=== PATIENT | female | born 1965 | race Caucasian/White ===

== ENCOUNTER 2016-02-16 08:18 | Emergency (ER) | payer MEDICAID ==
[~2016-02-16] VITALS: Ht 165.1 cm; Wt 77.1 kg
[~2016-02-16 08:18] MED LIST: ARIP15TA4 PO; ARIP15TA9 PO; AZIT250T PO; BUDE10.2 IH; DICL500C PO; DIVA500T PO; DIVA500T7 PO; HYDR-3454 PO; LORA1TAB PO; NAPR500T PO; OMEP20CA6 PO; ONDA8TAB6 PO; OXYC-190 PO; OXYC-197 PO; PRD20T PO; RT-ALBUINH IH; TR025C15 TP
--- NOTE | 2016-02-16 11:17 | ED General ---
General Chief Complaint: General Problems/Pain Stated Complaint: ANXIETY, NEEDING PORT FLUSHED Nursing Triage Note: Pt here for port flush reporting port has not been used in 3 months. Pt states she typically receives care at [facility] but has been unable to find a ride to [place]. Pt reports hearing story in car on way to hospital that made her anxious and now reports feeling very anxious and reports she needs an Rx for her abilify that she has not had for 1.5 wks. Pt reports she is currently staying at [facility]. Nursing Sepsis Screen: No Definite Risk Source of Information: Patient Exam Limitations: No Limitations History of Present Illness Time Seen by Provider: 11:17 Initial Comments 50 yo female patient presents to the emergency department for complaints of needing her port flushed and a refill on her Abilify. Patient states she has not had a port flush in 3 months. Patient typically receives care from [facility], but unable to find right [place]. Patient is living at the [facility]. Patient states she does have a prescription in [employer] [place] for 2.5 weeks of Abilify, but states this $28 and cannot afford this medication. Patient does see [facility] but has not contacted them for assistance with medication. Timing/Duration: Other (port has not been flushed for 3 mo. Has not had abilify for 1.5 wks.) Modifying Factors: worse with Other (denies modifying factors) Allergies and Home Medications Allergies Coded Allergies: No Known Drug Allergies (Unverified , 09/27/14) Home Medications Aripiprazole 15 Mg Tablet 15 MG PO HS (Reported) Divalproex Sodium 500 Mg Tablet.dr 2,000 MG PO HS (Reported) TAKE 4 (500MG) TABS Constitutional: no symptoms reported Respiratory: no symptoms reported Cardiovascular: no symptoms reported Gastrointestinal: no symptoms reported Musculoskeletal: no symptoms reported Skin: no symptoms reported Psychiatric/Neurological: See HPI All Other Systems Reviewed Negative Unless Noted: Yes (Negative excepted noted.) Past Bvankyi-Yuswor-Wcgkgz Hx Patient Social History Alcohol Use: Denies Use Recreational Drug Use: Yes (marijuana for appetite) Smoking Status: Current Everyday Smoker Type Used: Cigarettes Recent Foreign Travel: No Contact w/Someone Who Travel: No Recent Infectious Disease Expo: No Recent Hopitalizations: No Physical Abuse Screen: No Sexual Abuse: No Immunizations Up To Date Tetanus Booster (TDap): Unknown Surgeries HX Surgeries: Yes (CANCER REMOVED OFF ARM, PORT, LACERATION ON UTERUS REPAIRED) Surgeries: Section, Gallbladder Respiratory Hx Respiratory Disorders: No Respiratory Disorders: COPD Cardiovascular Hx Cardiac Disorders: Yes Cardiac Disorders: High Cholesterol, Hypertension Neurological Hx Neurological Disorders: No 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 System Hx 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: No (THROUGH MENOPAUSE) Sexually Transmitted Disease: No HIV/AIDS: No Female 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 Genitourinary Hx Genitourinary Disorders: No Gastrointestinal Hx Gastrointestinal Disorders: Yes Gastrointestinal Disorders: Gastroesophageal Reflux Musculoskeletal Hx Musculoskeletal Disorders: Yes Musculoskeletal Disorders: Rheumatoid Arthritis, Chronic Back Pain Endocrine Hx Endocrine Disorders: No HEENT HX ENT Disorders: Yes (READING GLASSES) Loss of Vision: Denies Hearing Impairment: Denies Cancer Hx Cancer: Yes Cancer: Skin, Breast Psychosocial Hx Psychiatric Problems: Yes Behavioral Health Disorders: Anxiety, Bipolar, Personality Disorder, Depression Integumentary HX Skin/Integumentary Disorder: No Blood Transfusions Hx Blood Disorders: No Adverse Reaction to a Blood Tr: No (HAS HAD BLOOD WITH NO PROBLEM) Reviewed Nursing Assessment Reviewed/Agree w Nursing PMH: Yes Family Medical History Significant Family History: No Pertinent Family Hx Physical Exam Vital Signs Vital Sign - Last 12Hours 02/16/16 08:32 Temp 96.9 Pulse 91 Resp 18 B/P 150/81 Pulse Ox 97 O2 Delivery Room Air Capillary Refill : Less Than 3 Seconds General Appearance: No Apparent Distress WD/WN Respiratory: Lungs Clear Normal Breath Sounds No Respiratory Distress Cardiovascular: Regular Rate, Rhythm No Murmur Back: Normal Inspection Extremity: Normal Capillary Refill Neurologic/Psychiatric: Alert Oriented x3 Normal Mood/Affect Skin: Normal Color Warm/Dry Other (internal groshong noted on the left chest.) Progress/Results/Core Measures Results/Orders My Orders Vital Signs/I&O Blood Pressure Mean: 104 Departure Communication Progress Notes 1135 patient case discussed with Katlin Beard. States she will contact the patient when her prescription is ready for pickup. Patient seen and evaluated. Patient advised to follow-up with [facility] for assistance with medications and to be helpful contact her when her prescription is ready for pick. Impression Impression: Primary Impression: Anxiety Additional Impression: Port catheter in place Disposition: 01 HOME, SELF-CARE Condition: Improved Departure-Patient Inst. Decision time for Depature: 11:38 Referrals: ALBA MOYA DO (PCP) Primary Care Physician DARÍO BURROWS APRN (Family) Primary Care Physician Patient Instructions: Anxiety, Adult (DC) Add. Discharge Instructions: All discharge instructions reviewed with patient and/or family. Voiced understanding. [facility] medications are ready for pickup and for discussion of payment plan. Follow-up with [facility] for future prescription refills. Return to the emergency department for worsened symptoms or any other concerns. EDIL [place] Feb 16, 2016 11:17 Decision time for Depature: 11:38 Referrals: ALBA MOYA DO (PCP) Primary Care Physician DARÍO BURROWS APRN (Family) Primary Care Physician Patient Instructions: Anxiety, Adult (DC) Add. Discharge Instructions: All discharge instructions reviewed with patient and/or family. Voiced understanding. [facility] from [facility] medications are ready for pickup and for discussion of payment plan. Follow-up with [facility] for future prescription refills. Return to the emergency department for worsened symptoms or any other concerns. EDIL [place] Feb 16, 2016 11:17
[2016-02-16] MEDS ORDERED: ARIP15TA4 PO (11:44)
[2016-02-16 12:12] VITALS: BP 126/84
== END 2016-02-16 12:11 | disposition home or self-care (01) ==
LOC: EDUNIT# 08:18 → ER 08:21
DX: F41.9 Anxiety disorder, unspecified (principal); Z95.9 Presence of cardiac and vascular implant and graft, unspecified; I10 Essential (primary) hypertension; F17.210 Nicotine dependence, cigarettes, uncomplicated
CPT/HCPCS: 82962; 99285

== ENCOUNTER → 2016-03-01 | Outpatient (CLI) | payer MEDICAID ==
[~2016-03-01] MED LIST changes: +CEFD300C3 PO; +DIVA500T15 PO; +HYDR-757 PO; +HYDR453. TOP; +HYOS0.1283 SL; +ONDA8TAB13 PO; +PRED10TA22 PO; +PROC10TA PO; +TRAM50TA2 PO
[2016-03-01 10:31] LABS: BASOPHILS % (AUTO) 1 % (0-10); EOSINOPHILS # (AUTO) 0.1 10^3/uL (0.0-0.3); EOSINOPHILS % (AUTO) 1 % (0-10); LYMPHOCYTES % (AUTO) 24 % (12-44); MEAN CORPUSCULAR HEMOGLOBIN 29 PG (25-34); MEAN CORPUSCULAR HGB CONC 32 G/DL (32-36); MEAN CORPUSCULAR VOLUME 89 FL (80-99); MEAN PLATELET VOLUME 9.9 FL (7.4-10.4); MONOCYTES # (AUTO) 0.6 X 10^3 (0.0-1.0); MONOCYTES % (AUTO) 7 % (0-12); NEUTROPHILS # (AUTO) 5.6 X 10^3 (1.8-7.8); NEUTROPHILS % (AUTO) 67 % (42-75); PLATELET COUNT 238 10^3/uL (130-400); RED BLOOD COUNT 4.73 10^6/uL (4.35-5.85); RED CELL DISTRIBUTION WIDTH 15.4 % (10.0-14.5); WHITE BLOOD COUNT 8.4 10^3/uL (4.3-11.0)
[2016-03-01 11:01] LABS: ALANINE AMINOTRANSFERASE 15 U/L (0-55); ANION GAP 6 MMOL/L (5-14); ASPARTATE AMINO TRANSFERASE 16 U/L (5-34); BILIRUBIN,TOTAL 0.2 MG/DL (0.1-1.0); BLOOD UREA NITROGEN 18 MG/DL (7-18); BUN/CREATININE RATIO 23; CALCIUM 9.1 MG/DL (8.5-10.1); CARBON DIOXIDE 27 MMOL/L (21-32); CHLORIDE 104 MMOL/L (98-107); CHOLESTEROL 208 MG/DL (< 200); CREATININE SERUM 0.77 MG/DL (0.60-1.30); DIRECT LDL 142 MG/DL (1-129); GFR ESTIMATED > 60; GLUCOSE 87 MG/DL (70-105); POTASSIUM 4.7 MMOL/L (3.6-5.0); SODIUM 137 MMOL/L (135-145); TOTAL PROTEIN 7.1 G/DL (6.4-8.2); TRIGLYCERIDES 134 MG/DL (<150); VLDL CHOLESTEROL 27 MG/DL (5-40)
[2016-03-01 11:20] LABS: THYROID STIMULATING HORMONE 2.44 UIU/ML (0.35-4.94); VALPROIC ACID 17.9 UG/ML (50.0-100.0)
== END ==
LOC: LAB 10:03
PROVIDERS: ATTEND Nurse Practitioner Psychiatric/Mental Health
DX: Z51.81 Encounter for therapeutic drug level monitoring (principal); Z79.899 Other long term (current) drug therapy
CPT/HCPCS: 36415; 80053; 80061; 80164; 84443; 85025

== ENCOUNTER 2016-03-04 10:35 | Emergency (ER) | payer MEDICAID ==
[~2016-03-04] VITALS: Ht 165.1 cm; Wt 82.1 kg
[~2016-03-04 10:35] MED LIST changes: -CEFD300C3 PO; -DIVA500T15 PO; -HYDR-757 PO; -HYDR453. TOP; -HYOS0.1283 SL; -ONDA8TAB13 PO; -PRED10TA22 PO; -PROC10TA PO; -TRAM50TA2 PO
[2016-03-04] MEDS ORDERED: HYDR-757 PO (11:11)
--- NOTE | 2016-03-04 11:12 | ED General ---
General Chief Complaint: General Problems/Pain Stated Complaint: PAIN/SWELLING RIGHT BREAST AREA Source of Information: Patient Exam Limitations: No Limitations History of Present Illness Time Seen by Provider: 11:09 Initial Comments To ER with pain and swelling to the right breast. This is been intermittent for the past 2 weeks. She had chemotherapy for right breast cancer 7 days ago. She follows with Dr. Patel at [facility] in [place]. 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 She has had a mastectomy. Timing/Duration: Intermittent Severity: Moderate Allergies and Home Medications Allergies Coded Allergies: No Known Drug Allergies (Unverified , 09/27/14) Home Medications Aripiprazole 15 Mg Tablet 15 MG PO HS (Reported) Divalproex Sodium 500 Mg Tablet.dr 2,000 MG PO HS (Reported) TAKE 4 (500MG) TABS Constitutional: see HPI EENTM: see HPI Respiratory: no symptoms reported Cardiovascular: no symptoms reported Genitourinary: no symptoms reported Musculoskeletal: no symptoms reported Skin: see HPI Psychiatric/Neurological: No Symptoms Reported Hematologic/Lymphatic: No Symptoms Reported Past Vkofzhj-Glsrdm-Vigjhz Hx Patient Social History Alcohol Use: Denies Use Recreational Drug Use: No Smoking Status: Current Everyday Smoker Type Used: Cigarettes Recent Foreign Travel: No Contact w/Someone Who Travel: No Recent Hopitalizations: No Physical Abuse Screen: No Sexual Abuse: No Immunizations Up To Date Tetanus Booster (TDap): Unknown Surgeries HX Surgeries: Yes (CANCER REMOVED OFF ARM, PORT, LACERATION ON UTERUS REPAIRED) Surgeries: Section, Gallbladder Respiratory Hx Respiratory Disorders: No Respiratory Disorders: COPD Cardiovascular Hx Cardiac Disorders: Yes Cardiac Disorders: High Cholesterol, Hypertension Neurological Hx Neurological Disorders: No 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 System Hx 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: No (THROUGH MENOPAUSE) Sexually Transmitted Disease: No HIV/AIDS: No Female 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 Genitourinary Hx Genitourinary Disorders: No Gastrointestinal Hx Gastrointestinal Disorders: Yes Gastrointestinal Disorders: Gastroesophageal Reflux Musculoskeletal Hx Musculoskeletal Disorders: Yes Musculoskeletal Disorders: Rheumatoid Arthritis, Chronic Back Pain Endocrine Hx Endocrine Disorders: No HEENT HX ENT Disorders: Yes (READING GLASSES) Loss of Vision: Denies Hearing Impairment: Denies Cancer Hx Cancer: Yes Cancer: Skin, Breast Psychosocial Hx Psychiatric Problems: Yes Behavioral Health Disorders: Anxiety, Bipolar, Personality Disorder, Depression Integumentary HX Skin/Integumentary Disorder: No Blood Transfusions Hx Blood Disorders: No Adverse Reaction to a Blood Tr: No (HAS HAD BLOOD WITH NO PROBLEM) Family Medical History Significant Family History: No Pertinent Family Hx Physical Exam Vital Signs Capillary Refill : General Appearance: No Apparent Distress WD/WN Eyes: Bilateral Eye Normal Inspection, Bilateral Eye PERRL HEENT: PERRL/EOMI TMs Normal Neck: Full Range of Motion Normal Inspection Respiratory: No Accessory Muscle Use No Respiratory Distress Cardiovascular: Regular Rate, Rhythm Normal Peripheral Pulses Gastrointestinal: Normal Bowel Sounds Non Tender Soft Extremity: Normal Capillary Refill Normal Inspection Neurologic/Psychiatric: Alert Oriented x3 No Motor/Sensory Deficits Skin: Normal Color Warm/Dry Other (right breast mastectomy. There is no erythema that I can see. There is a bit of swelling but she states that she does have some lymphedema to this area.) Departure Impression Impression: Primary Impression: Breast cancer, right Qualified Code: C50.911 - Malignant neoplasm of unspecified site of right female breast Disposition: 01 HOME, SELF-CARE Condition: Stable Departure-Patient Inst. Decision time for Depature: 11:10 Referrals: ABAD MURRAY MD (PCP/Family) Primary Care Physician Patient Instructions: Breast Cancer Add. Discharge Instructions: 1. Medication as directed 2. Follow-up with your oncologist as directed All discharge instructions reviewed with patient and/or family. Voiced understanding. Scripts Hydrocodone/Acetaminophen (Edwards 5-325 Tablet)1 Each Tablet1 Each PO Q4H PRN PAIN #30 TAB Prov:KAYLA MELENDEZ APRN 03/04/16 KAYLA MELENDEZ APRN Mar 04, 2016 11:11
[2016-03-04 11:16] VITALS: BP 148/108
== END 2016-03-04 11:16 | disposition home or self-care (01) ==
LOC: EDUNIT# 10:35 → ER 10:37
DX: C50.911 Malignant neoplasm of unspecified site of right female breast (principal); I10 Essential (primary) hypertension; J44.9 Chronic obstructive pulmonary disease, unspecified; F17.210 Nicotine dependence, cigarettes, uncomplicated; Z79.899 Other long term (current) drug therapy; Z90.11 Acquired absence of right breast and nipple
CPT/HCPCS: 99283

== ENCOUNTER 2016-05-24 19:18 | Observation (INO) | payer MEDICAID ==
[~2016-05-24] VITALS: Ht 165.1 cm; Wt 85.1 kg
[~2016-05-24 19:18] MED LIST changes: +HYDR-757 PO
[2016-05-24] MEDS ORDERED: IBUPROFEN 800 MG (MOTRIN) TAB PO ONE (19:45)
[2016-05-24] MEDS ORDERED: ACETAMINOPHEN 500 MG TAB (TYLENOL) PO ONE (19:45)
--- NOTE | 2016-05-24 19:57 | Diagnostic Imaging Report ---
INDICATION: Fever and chest pain. History of breast cancer. EXAMINATION: Upright portable chest was obtained. FINDINGS: Normal heart size and vascularity. The lungs are clear. There is no effusion or pneumothorax. A Port-A-Cath is present. IMPRESSION: No acute abnormality is seen with no significant change from 01/17/15. Dictated by: Dictated on workstation # [id number]
[2016-05-24 20:09] LABS: BASOPHILS % (AUTO) 0 % (0-10); EOSINOPHILS % (AUTO) 0 % (0-10); LYMPHOCYTES # (AUTO) 0.7 X 10^3 (1.0-4.0); LYMPHOCYTES % (AUTO) 6 % (12-44); MEAN CORPUSCULAR HEMOGLOBIN 29 PG (25-34); MEAN CORPUSCULAR HGB CONC 33 G/DL (32-36); MEAN CORPUSCULAR VOLUME 90 FL (80-99); MEAN PLATELET VOLUME 9.9 FL (7.4-10.4); MONOCYTES % (AUTO) 9 % (0-12); NEUTROPHILS # (AUTO) 9.7 X 10^3 (1.8-7.8); NEUTROPHILS % (AUTO) 85 % (42-75); PLATELET COUNT 161 10^3/uL (130-400); RED BLOOD COUNT 4.74 10^6/uL (4.35-5.85); RED CELL DISTRIBUTION WIDTH 13.9 % (10.0-14.5); WHITE BLOOD COUNT 11.4 10^3/uL (4.3-11.0)
[2016-05-24 20:17] LABS: INR 0.9 (0.8-1.4); PROTHROMBIN TIME PATIENT 11.8 SEC (12.2-14.7)
[2016-05-24 20:25] LABS: ALANINE AMINOTRANSFERASE 13 U/L (0-55); ALBUMIN 3.9 G/DL (3.2-4.5); ANION GAP 11 MMOL/L (5-14); ASPARTATE AMINO TRANSFERASE 11 U/L (5-34); BILIRUBIN,TOTAL 0.3 MG/DL (0.1-1.0); BLOOD UREA NITROGEN 17 MG/DL (7-18); BUN/CREATININE RATIO 22; CALCIUM 9.2 MG/DL (8.5-10.1); CARBON DIOXIDE 23 MMOL/L (21-32); CHLORIDE 103 MMOL/L (98-107); CREATININE SERUM 0.77 MG/DL (0.60-1.30); GFR ESTIMATED > 60; GLUCOSE 115 MG/DL (70-105); MAGNESIUM 1.9 MG/DL (1.8-2.4); POTASSIUM 3.8 MMOL/L (3.6-5.0); SODIUM 137 MMOL/L (135-145); TOTAL PROTEIN 7.5 G/DL (6.4-8.2)
[2016-05-24 20:29] LABS: BAND NEUTROPHILS 5 %; BASOPHILS % (MANUAL) 0 %; EOSINOPHILS % (MANUAL) 0 %; LYMPHOCYTES % (MANUAL) 8 %; NEUTROPHILS % (MANUAL) 83 %
[2016-05-24] MEDS ORDERED: RT-ALBUTEROL/IPRATROPIUM 3 ML (DUONEB) VIAL INH ONE (20:30)
[2016-05-24] MEDS ORDERED: methylPREDNISolone 125 MG (Solu-MEDROL) VIAL IVP ONE (20:30)
[2016-05-24] MEDS ORDERED: cefTRIAXone INJECTION 1,000 MG in NS (IVPB) 50 ML IV ONE (20:30)
[2016-05-24] MEDS ORDERED: DEXAMETHASONE 4 MG/ML SDV (DECADRON) IH ONE (20:30)
[2016-05-24 20:32] LABS: MYOGLOBIN SERUM 16.5 NG/ML (10.0-92.0)
[2016-05-24] MEDS ORDERED: PIPERACILLIN SODIUM/TAZOBACTAM 4.5 GM in NS (IVPB) 100 ML IV ONE (20:45)
--- NOTE | 2016-05-24 20:59 | ED Cardiac General ---
History of Present Illness General Chief Complaint: Chest Pain Stated Complaint: FEVER,BRONCHITIS,HYPOXIA,BREAST CA-ON CHEMO AND RA Nursing Triage Note: CHEST PRESSURE, COUGH X1 WK Source: patient (SOMEWHAT HOSTILE AND DOES NOT WANT TO ANSWER QUESTIONS) History of Present Illness Time seen by provider: 19:25 Initial Comments C/O COUGH AND CONGESTION FOR OVER A WEEK, WORSE FOR 2 DAYS COUGH WITH OCCASIONAL YELLOW SPUTUM C/O SINUS PAIN AND YELLOW DRAINAGE AND BURNING IN NOSE/SINUSES C/O CHEST PAIN AND HURTS TO COUGH C/O SHORTNESS OF BREATH C/O SUBJECTIVE FEVER--BEGAN 6 HOURS AGO. HAS NOT TAKEN ANYTHING FOR FEVER OR PAIN WAS SEEN A WEEK AGO AT [facility] FOR THIS AND WAS TOLD SHE HAD ALLERGIES, AND WAS GIVEN A SHOT OF STEROIDS, NO RX PT IS CURRENTLY BEING TREATED FOR BREAST CANCER. DX 11/2014. HAS HAD BILATERAL MASTECTOMY, IS GETTING DAILY RADIATION TREATMENTS HERE AT [facility], AND GOES TO ONCOLOGIST AT [facility]--RECEIVING CHEMO EVERY 3 WEEKS, LAST TREATMENT 1 1/2 WEEKS AGO PT CONTINUES TO SMOKE 1 02/08 PPD PCP: DR. MURRAY AT [facility] Allergies and Home Medications Allergies Coded Allergies: No Known Drug Allergies (Unverified , 09/27/14) Home Medications Aripiprazole 15 Mg Tablet, 15 MG PO HS, (Reported) Divalproex Sodium 500 Mg Tablet.dr, 2,000 MG PO HS, (Reported) TAKE 4 (500MG) TABS Hydrocodone/Acetaminophen 1 Each Tablet, 1 EACH PO Q4H PRN for PAIN, #30 Prescribed by: KAYLA MELENDEZ on 03/04/16 1111 Review of Systems Constitutional: see HPI, fever EENTM: See HPI, Nose Congestion, Nose Pain, Other (SINUS PAIN) Respiratory: See HPI, Cough, Shortness of Air Cardiovascular: See HPI, Chest Pain, Denies Edema, Denies Lightheadedness, Denies Palpitations, Denies Syncope Gastrointestinal: No Symptoms Reported Genitourinary: No Symptoms Reported Musculoskeletal: no symptoms reported Skin: no symptoms reported Psychiatric/Neurological: No Symptoms Reported Endocrine: No Symptoms Reported Hematologic/Lymphatic: No Symptoms Reported Past Vsdjmxs-Zzlyaq-Fxanog Hx Patient Social History Alcohol Use: Denies Use Recreational Drug Use: No Smoking Status: Current Everyday Smoker (1 1/2 PPD) Type Used: Cigarettes Recent Foreign Travel: No Contact w/Someone Who Travel: No Recent Infectious Disease Expo: No Recent Hopitalizations: No Immunizations Up To Date Tetanus Booster (TDap): Unknown Surgeries HX Surgeries: Yes (CANCER REMOVED OFF ARM, LACERATION ON UTERUS REPAIRED; BILATERAL MASTECTOMY; PORT RIGHT CHEST) Surgeries: Breast, Section, Gallbladder, Vascular Surgery Respiratory Hx Respiratory Disorders: Yes Respiratory Disorders: COPD Cardiovascular Hx Cardiac Disorders: Yes Cardiac Disorders: High Cholesterol, Hypertension Neurological Hx Neurological Disorders: No 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 System Hx 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: No (THROUGH MENOPAUSE) Sexually Transmitted Disease: No HIV/AIDS: No Female 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 INSTITUTIONAL RESEARCH COORDINATOR History: Menopausal Genitourinary Hx Genitourinary Disorders: No Gastrointestinal Hx Gastrointestinal Disorders: Yes Gastrointestinal Disorders: Gastroesophageal Reflux Musculoskeletal Hx Musculoskeletal Disorders: Yes Musculoskeletal Disorders: Rheumatoid Arthritis, Chronic Back Pain Endocrine Hx Endocrine Disorders: No HEENT HX ENT Disorders: Yes (READING GLASSES) Loss of Vision: Denies Hearing Impairment: Denies Cancer Hx Cancer: Yes (BREAST CANCER DX 11/2014--S/P BILATERAL MASTECTOMY, CURRENTLY RECEIVING DAILY RADIATION AT [facility], CURRENTLY RECEIVING CHEMO EVERY 3 WEEKS AT [facility]--PER PT ON 05/24/16) Cancer: Skin, Breast Psychosocial Hx Psychiatric Problems: Yes Behavioral Health Disorders: Anxiety, Bipolar, Personality Disorder, Depression Integumentary HX Skin/Integumentary Disorder: No Blood Transfusions Hx Blood Disorders: No Adverse Reaction to a Blood Tr: No (HAS HAD BLOOD WITH NO PROBLEM) Physical Exam Vital Signs Vital Sign - Last 12Hours 05/24/16 19:25 Temp 101.1 Pulse 110 Resp 18 B/P (MAP) 142/93 Pulse Ox 95 Capillary Refill : Less Than 3 Seconds General Appearance: No Apparent Distress, WD/WN HEENT: PERRL/EOMI, TMs Normal, Other (NASAL MUCOSAL EDEMA AND CLEAR POST NASAL DRAINAGE, DIFFUSE SINUS TENDERNESS-LEFT > RIGHT) Neck: Full Range of Motion, Normal Inspection, Non Tender, Supple, No Lymphadenopathy (L), No Lymphadenopathy (R) Respiratory: No Accessory Muscle Use, No Respiratory Distress, Pleural Rub ( RIGHT > LEFT), Wheezing (FAINT BILATERAL EXPIRATORY WHEEZING) Cardiovascular: No Edema, No JVD, No Murmur, Normal Peripheral Pulses, Tachycardia Gastrointestinal: Normal Bowel Sounds, No Organomegaly, No Pulsatile Mass, Non Tender, Soft Extremity: Normal Inspection, No Calf Tenderness, No Pedal Edema Neurologic/Psychiatric: Alert, Oriented x3, No Motor/Sensory Deficits, heel stainer II- XII Norm as Tested Skin: Normal Color, Warm/Dry, Other (SKIN VERY FLUSHED AND WARM) Focused Exam Lactic Acid Level Laboratory Tests Test 05/24/16 19:58 Lactic Acid Level 0.79 MMOL/L (0.50-2.00) Progress/Results/Core Measures Results/Orders Lab Results Laboratory Tests Test 05/24/16 19:58 Range/Units White Blood Count 11.4 H 4.3-11.0 10^3/uL Red Blood Count 4.74 4.35-5.85 10^6/uL Hemoglobin 13.8 11.5-16.0 G/DL Hematocrit 43 35-52 % Mean Corpuscular Volume 90 80-99 FL Mean Corpuscular Hemoglobin 29 25-34 PG Mean Corpuscular Hemoglobin Concent 33 32-36 G/DL Red Cell Distribution Width 13.9 10.0-14.5 % Platelet Count 161 130-400 10^3/uL Mean Platelet Volume 9.9 7.4-10.4 FL Neutrophils (%) (Auto) 85 H 42-75 % Lymphocytes (%) (Auto) 6 L 12-44 % Monocytes (%) (Auto) 9 0-12 % Eosinophils (%) (Auto) 0 0-10 % Basophils (%) (Auto) 0 0-10 % Neutrophils # (Auto) 9.7 H 1.8-7.8 X 10^3 Lymphocytes # (Auto) 0.7 L 1.0-4.0 X 10^3 Monocytes # (Auto) 1.0 0.0-1.0 X 10^3 Eosinophils # (Auto) 0.0 0.0-0.3 10^3/uL Basophils # (Auto) 0.0 0.0-0.1 10^3/uL Neutrophils % (Manual) 83 % Lymphocytes % (Manual) 8 % Monocytes % (Manual) 4 % Eosinophils % (Manual) 0 % Basophils % (Manual) 0 % Band Neutrophils 5 % Blood Morphology Comment NORMAL Prothrombin Time 11.8 L 12.2-14.7 SEC INR Comment 0.9 0.8-1.4 Activated Partial Thromboplast Time 26 24-35 SEC Sodium Level 137 135-145 MMOL/L Potassium Level 3.8 3.6-5.0 MMOL/L Chloride Level 103 98-107 MMOL/L Carbon Dioxide Level 23 21-32 MMOL/L Anion Gap 11 5-14 MMOL/L Blood Urea Nitrogen 17 7-18 MG/DL Creatinine 0.77 0.60-1.30 MG/DL Estimat Glomerular Filtration Rate > 60 BUN/Creatinine Ratio 22 Glucose Level 115 H 70-105 MG/DL Lactic Acid Level 0.79 0.50-2.00 MMOL/L Calcium Level 9.2 8.5-10.1 MG/DL Magnesium Level 1.9 1.8-2.4 MG/DL Total Bilirubin 0.3 0.1-1.0 MG/DL Aspartate Amino Transf (AST/SGOT) 11 5-34 U/L Alanine Aminotransferase (ALT/SGPT) 13 0-55 U/L Alkaline Phosphatase 65 40-136 U/L Myoglobin 16.5 10.0-92.0 NG/ML Troponin I < 0.30 <0.30 NG/ML Total Protein 7.5 6.4-8.2 G/DL Albumin 3.9 3.2-4.5 G/DL Valproic Acid (Depakene) Level 50.9 50.0-100.0 UG/ML Micro Results Microbiology 05/24/16 Influenza Types A,B Antigen (RUCHI) - Final, Complete My Orders Orders - EMILY MURPHY DO Lactic Acid Analyzer (05/24/16 19:28) Ua Culture If Indicated (05/24/16 19:28) Blood Culture (05/24/16 19:28) Influenza A And B Antigens (05/24/16 19:28) Acetaminophen Tablet (Tylenol Tablet) (05/24/16 19:45) Ibuprofen Tablet (Motrin Tablet) (05/24/16 19:45) Ceftriaxone Injection (Rocephin Injectio (05/24/16 20:30) Methylprednisolone Sod Succ (Solu-Medrol (05/24/16 20:30) Albuterol/Ipra Inhalation Soln (Duoneb I (05/24/16 20:30) Dexamethasone Injection (Decadron Inject (05/24/16 20:30) Svn Sm Volume Nebulizer Rt-Rfs (05/24/16 20:30) Medications Given in ED Current Medications Medications Dose Ordered Sig/Nilda Route Start Time Stop Time Status Last Admin Dose Admin Acetaminophen 1,000 mg ONCE ONCE PO 05/24/16 19:45 05/24/16 19:46 DC 05/24/16 19:59 1,000 MG Albuterol/ Ipratropium 3 ml ONCE ONCE INH 05/24/16 20:30 05/24/16 20:32 DC 05/24/16 20:47 3 ML Ceftriaxone Sodium 1000 mg/ Sodium Chloride 50 ml @ 100 mls/hr ONCE ONCE IV 05/24/16 20:30 05/24/16 20:59 DC 05/24/16 20:40 100 MLS/HR Dexamethasone Sodium Phosphate 20 mg ONCE ONCE IH 05/24/16 20:30 05/24/16 20:32 DC 05/24/16 20:38 20 MG Ibuprofen 800 mg ONCE ONCE PO 05/24/16 19:45 05/24/16 19:46 DC 05/24/16 19:59 800 MG Methylprednisolone Sodium Succinate 125 mg ONCE ONCE IVP 05/24/16 20:30 05/24/16 20:32 DC 05/24/16 20:38 125 MG Vital Signs/I&O Vital Sign - Last 12Hours 05/24/16 19:25 Temp 101.1 Pulse 110 Resp 18 B/P (MAP) 142/93 Pulse Ox 95 Blood Pressure Mean: 109 Progress Note : Progress Note O2 SATS 91-95%--PLACED ON O2 AND REMAINED AROUND 95% FOR REMAINDER OF ER STAY ECG Initial ECG Impression Time: 19:45 Initial ECG Rate: 105 Initial ECG Rhythm: S.Tach Initial ECG Impression: Nonspecific Changes Initial ECG Comparisson: Unchanged (EXCEPT DECREASED VOLTAGE) Diagnostic Imaging Comments CXR--NO ACUTE PROCESS, PER RADIOLOGIST REPORT @ 1999 Reviewed: Reviewed by Me Departure Communication Progress Notes 2034--SPOKE WITH DR. PAN, MACHINE CLOTH MEASURER FOR [facility]. ACCEPTS PT FOR ADMIT. ORDERS NOTED Impression Impression: Primary Impression: Fever Additional Impressions: Bronchitis COPD exacerbation Hypoxia BREAST CANCER ON CHEMO AND RADIATION Chest wall pain Disposition: ADMITTED INPATIENT Condition: Stable Decision to Admit Reason: Admit from ER (General) Decision to Admit/Date: May 24, 2016 Time/Decision to Admit Time: 20:35 Departure-Patient Inst. Referrals: ABAD MURRAY MD (PCP/Family) Primary Care Physician EMILY MURPHY DO May 24, 2016 20:59
[2016-05-24 21:06] LABS: BILIRUBIN,URINE NEGATIVE (NEGATIVE); KETONES,URINE NEGATIVE (NEGATIVE); LEUKOCYTE ESTERASE ,URINE 2+ (NEGATIVE); NITRITE,URINE NEGATIVE (NEGATIVE); PH,URINE 6 (5-9); PROTEIN,URINE 2+ (NEGATIVE); UROBILINOGEN,URINE NORMAL (NORMAL)
[2016-05-24] MEDS ORDERED: D5 1/2 NS 1000 ML IV SOLUTION 1,000 ML IV ONE (21:32)
[2016-05-24] MEDS: D5 1/2 NS 1000 ML IV SOLUTION 1,000 ML IV SCH (22:09)
[2016-05-24] MEDS ORDERED: CATHETER FLUSH 10 ML SYR IV PRN (22:15)
[2016-05-24] MEDS ORDERED: IBUPROFEN 800 MG (MOTRIN) TAB PO PRN (22:15)
[2016-05-24] MEDS ORDERED: ACETAMINOPHEN 500 MG TAB (TYLENOL) PO PRN (22:15)
[2016-05-24 22:30] VITALS: BP 124/78
[2016-05-24] MEDS ORDERED: RT-ALBUTEROL/IPRATROPIUM 3 ML (DUONEB) VIAL INH PRN (22:45)
[2016-05-25 00:40] VITALS: BP 134/63
[2016-05-25 02:30] VITALS: BP 123/70
[2016-05-25] MEDS: PIPERACILLIN/TAZOBACTAM 4.5 GM/NS 100 ML IVPB IV SCH ×4 (02:34→10:02)
[2016-05-25] MEDS: methylPREDNISolone 125 MG (Solu-MEDROL) VIAL IV SCH ×2 (03:45→10:00)
[2016-05-25 04:30] VITALS: BP 129/61
[2016-05-25 04:32] VITALS: BP 129/61
[2016-05-25] MEDS: D5 1/2 NS 1000 ML IV SOLUTION 1,000 ML IV SCH (04:32)
[2016-05-25 05:13] LABS: BASOPHILS % (AUTO) 0 % (0-10); EOSINOPHILS % (AUTO) 0 % (0-10); LYMPHOCYTES # (AUTO) 0.3 X 10^3 (1.0-4.0); LYMPHOCYTES % (AUTO) 3 % (12-44); MEAN CORPUSCULAR HEMOGLOBIN 29 PG (25-34); MEAN CORPUSCULAR HGB CONC 32 G/DL (32-36); MEAN CORPUSCULAR VOLUME 90 FL (80-99); MONOCYTES # (AUTO) 0.2 X 10^3 (0.0-1.0); MONOCYTES % (AUTO) 2 % (0-12); NEUTROPHILS # (AUTO) 9.8 X 10^3 (1.8-7.8); NEUTROPHILS % (AUTO) 95 % (42-75); PLATELET COUNT 151 10^3/uL (130-400); RED BLOOD COUNT 4.38 10^6/uL (4.35-5.85); RED CELL DISTRIBUTION WIDTH 13.8 % (10.0-14.5); WHITE BLOOD COUNT 10.3 10^3/uL (4.3-11.0)
[2016-05-25] MEDS ORDERED: CATHETER FLUSH 10 ML SYR IV SCH (06:00)
[2016-05-25 06:26] LABS: ALANINE AMINOTRANSFERASE 11 U/L (0-55); ALBUMIN 3.6 G/DL (3.2-4.5); ANION GAP 11 MMOL/L (5-14); ASPARTATE AMINO TRANSFERASE 10 U/L (5-34); BILIRUBIN,TOTAL 0.3 MG/DL (0.1-1.0); BLOOD UREA NITROGEN 15 MG/DL (7-18); BUN/CREATININE RATIO 19; CALCIUM 9.1 MG/DL (8.5-10.1); CARBON DIOXIDE 22 MMOL/L (21-32); CHLORIDE 105 MMOL/L (98-107); CREATININE SERUM 0.77 MG/DL (0.60-1.30); GFR ESTIMATED > 60; GLUCOSE 267 MG/DL (70-105); POTASSIUM 4.1 MMOL/L (3.6-5.0); SODIUM 138 MMOL/L (135-145)
[2016-05-25 06:45] LABS: CHOLESTEROL 184 MG/DL (< 200); DIRECT LDL 121 MG/DL (1-129); TRIGLYCERIDES 67 MG/DL (<150); VLDL CHOLESTEROL 13 MG/DL (5-40)
[2016-05-25 08:00] VITALS: BP 135/78
[2016-05-25] MEDS ORDERED: RT-ALBUTEROL/IPRATROPIUM 3 ML (DUONEB) VIAL INH SCH (08:00)
[2016-05-25] MEDS ORDERED: ONDA8TAB13 PO (08:45)
[2016-05-25] MEDS ORDERED: PROC10TA PO (08:45)
[2016-05-25] MEDS ORDERED: DIVA500T15 PO (08:45)
[2016-05-25] MEDS ORDERED: ARIP15TA9 PO (08:45)
[2016-05-25] MEDS ORDERED: HYDR453. TOP (08:45)
[2016-05-25] MEDS ORDERED: TRAM50TA2 PO (08:45)
[2016-05-25] MEDS ORDERED: NICOTINE 21 MG (NICODERM) PATCH TD SCH (09:00)
[2016-05-25] MEDS ORDERED: PATCH REMOVAL TP SCH (09:00)
[2016-05-25] MEDS ORDERED: guaiFENesin (MUCINEX) 600 MG TAB PO SCH (09:00)
--- NOTE | 2016-05-25 10:24 | Diagnostic Imaging Report ---
EXAMINATION: PA and lateral views of the chest. INDICATION: Pneumonia and fever. FINDINGS: Low density opacity near the cardiac apex is likely related to a prominent pericardial fat-pad with no definite focal infiltrate. The heart size is normal. There is no effusion or pneumothorax. There is an infusion port through the left IJ with the tip in the distal SVC. IMPRESSION: No acute process. Dictated by: Dictated on workstation # [id number]
--- NOTE | 2016-05-25 10:54 | Short Stay Summary-Hospitalist ---
HPI History of Present Illness: HPI/Chief Complaint CC: Fever and chemotherapy breast cancer patient HPI: This is a 50-year-old white female with known breast cancer undergoing chemotherapy at [facility] but receives radiation treatment here at [facility] and primary care providers [facility] Dr. Londono the presents to the ER with fever and cough. No chest x-ray abnormality and normal labs but due to immunosuppression and documented fever and overall wheezing and hypoxia she was deemed meeting criteria for observation status placed on broad- spectrum antibiotics of Zosyn and monitor closely. Currently she is feeling much better denies any chest pain or shortness of breath and does not wear home O2. She was to go home and I reviewed all labs and chest x-ray and reconcile all home meds and felt like we could go ahead and discharge since she is much improved and overall lungs are clear. Source: patient Exam Limitations: no limitations Date Seen 05/25/16 Attending Physician Princess Londono MD PCP Princess Londono MD Referring Physician Date of Admission May 24, 2016 at 20:35 Home Medications & Allergies Home Medications Reviewed patient Home Medication Reconciliation Form Allergies Allergies Coded Allergies No Known Drug Allergies (Unverified09/27/14) Past Yvmlfrg-Liszcw-Drlqsg Hx Patient Social History Marrital Status: single Employed/Student: unemployed Alcohol Use: Denies Use Recreational Drug Use: No Smoking Status: Current Everyday Smoker Type Used: Cigarettes Physical Abuse Screen: No Sexual Abuse: No Recent Foreign Travel: No Contact w/other who traveled: No Recent Hopitalizations: No Recent Infectious Disease Expo: No Immunizations Up To Date Tetanus Booster (TDap): Unknown Seasonal Allergies Seasonal Allergies: No Surgeries HX Surgeries: Yes (CANCER REMOVED OFF ARM, LACERATION ON UTERUS REPAIRED; BILATERAL MASTECTOMY; PORT RIGHT CHEST) Surgeries: Breast, Section, Gallbladder, Vascular Surgery Respiratory Hx Respiratory Disorders: Yes Respiratory Disorders: COPD Cardiovascular Hx Cardiovascular Disorders: Yes Cardiac Disorders: High Cholesterol, Hypertension Neurological Hx Neurological Disorders: No 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 System Hx 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: No (THROUGH MENOPAUSE) Sexually Transmitted Disease: No HIV/AIDS: No Female 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 Genitourinary Hx Genitourinary Disorders: No Gastrointestinal Hx Gastrointestinal Disorders: Yes Gastrointestinal Disorders: Gastroesophageal Reflux Musculoskeletal Hx Musculoskeletal Disorders: Yes Musculoskeletal Disorders: Rheumatoid Arthritis, Chronic Back Pain Endocrine Hx Endocrine Disorders: No HEENT HX ENT Disorders: Yes (READING GLASSES) Loss of Vision: Denies Hearing Impairment: Denies Cancer Hx Cancer: Yes (BREAST CANCER DX 11/2014--S/P BILATERAL MASTECTOMY, CURRENTLY RECEIVING DAILY RADIATION AT [facility], CURRENTLY RECEIVING CHEMO EVERY 3 WEEKS AT [facility]--PER PT ON 05/24/16) Cancer: Skin, Breast Psychosocial Hx Psychiatric Problems: Yes Behavioral Health Disorders: Anxiety, Bipolar, Personality Disorder, Depression Integumentary HX Skin/Integumentary Disorder: No Blood Transfusions Hx Blood Disorders: No Adverse Reaction to a Blood Tr: No (HAS HAD BLOOD WITH NO PROBLEM) Family Medical History Family Hx: Not obtainable due to adoption (ADOPTION) Review of Systems Constitutional: see HPI, chills, fever, weakness EENTM: no symptoms reported Respiratory: cough, wheezing Cardiovascular: no symptoms reported Gastrointestinal: no symptoms reported Genitourinary: no symptoms reported Musculoskeletal: no symptoms reported Skin: no symptoms reported Psychiatric/Neurological: No Symptoms Reported All Other Systems Reviewed Negative Unless Noted: Yes Physical Exam Physical Exam Vital Signs Vital Sign - Last 12Hours 05/24/16 05/24/16 05/25/16 19:25 21:00 02:30 Temp 101.1 Pulse 110 Resp 18 B/P (MAP) 142/93 Pulse Ox 95 O2 Delivery Room Air O2 Flow Rate 1.50 Capillary Refill : Less Than 3 Seconds General Appearance: No Apparent Distress, WD/WN, Chronically ill Eyes: Bilateral Eye Normal Inspection, Bilateral Eye PERRL HEENT: PERRL/EOMI, Normal ENT Inspection, Pharynx Normal Neck: Full Range of Motion, Normal Inspection, Non Tender, Supple, Carotid Bruit Respiratory: Chest Non Tender, Lungs Clear, Normal Breath Sounds, No Accessory Muscle Use, No Respiratory Distress Cardiovascular: Regular Rate, Rhythm, No Edema, No Gallop, No JVD, No Murmur, Normal Peripheral Pulses Gastrointestinal: Normal Bowel Sounds, No Organomegaly, No Pulsatile Mass, Non Tender, Soft Back: Normal Inspection, No CVA Tenderness, No Vertebral Tenderness Extremity: Normal Capillary Refill, Normal Inspection, Normal Range of Motion, Non Tender, No Calf Tenderness, No Pedal Edema Neurologic/Psychiatric: Alert, Oriented x3, No Motor/Sensory Deficits, Normal Mood/Affect Skin: Normal Color, Warm/Dry Lymphatic: No Adenopathy Results Results/Procedures Lab Laboratory Tests 05/24/16 19:58 05/25/16 04:30 Short Stay Diagnosis Discharge Diagnosis-Short Stay Admission Diagnosis Assessment: Fever in immunosuppressed chemotherapy breast cancer patient without evidence of pneumonia on repeat chest x-ray Smoker COPD with exacerbation Final Discharge Diagnosis Assessment: Fever in immunosuppressed chemotherapy breast cancer patient without evidence of pneumonia on repeat chest x-ray Smoker COPD with exacerbation Conclusion Plan Plan: Short-haul with close follow-up with primary care provider Antibiotics Short duration taper dose of prednisone Clinical Quality Measures DVT/VTE Risk/Contraindication: Risk Factor Score Per Nursin RFS Level Per Nursing on Admit: 4+=Very High PHUC PAN DO May 25, 2016 10:54
[2016-05-25] MEDS ORDERED: PRED10TA22 PO (10:56)
[2016-05-25] MEDS ORDERED: CEFD300C3 PO (10:56)
[2016-05-25] MEDS ORDERED: HYDROCORTISONE 1% CREAM 30 GM TUBE TOP PRN (11:00)
[2016-05-25] MEDS ORDERED: ONDANSETRON 8 MG (ZOFRAN) ORAL DISSOLVE TAB PO PRN (11:00)
[2016-05-25 12:53] VITALS: BP 135/78
[2016-05-25] MEDS ORDERED: PROCHLORPERAZINE 10 MG TAB (COMPAZINE) PO SCH (21:00)
[2016-05-25] MEDS ORDERED: ARIPIPRAZOLE 15 MG (ABILIFY) TAB PO SCH (21:00)
[2016-05-25] MEDS ORDERED: DIVALPROEX EXT RELEASE 500 MG (DEPAKOTE ER) TAB PO SCH (21:00)
[2016-05-26] MEDS ORDERED: HYOS0.1283 SL (14:29)
== END 2016-05-25 10:56 | disposition home or self-care (01) ==
LOC: EDUNIT# 19:18 → ER 19:19 → 4TH 20:35 → UNDOADMOB 20:35 → 4TH 21:15 → UNDODISOB 05-25 13:15
PROVIDERS: ADMIT Internal Medicine; ATTEND Family Medicine
DX: J44.1 Chronic obstructive pulmonary disease with (acute) exacerbation (principal); F17.210 Nicotine dependence, cigarettes, uncomplicated; C50.919 Malignant neoplasm of unspecified site of unspecified female breast; Z90.11 Acquired absence of right breast and nipple; Z90.12 Acquired absence of left breast and nipple; I10 Essential (primary) hypertension; K21.9 Gastro-esophageal reflux disease without esophagitis; M06.9 Rheumatoid arthritis, unspecified; R07.89 Other chest pain
CPT/HCPCS: 36415; 71010; 71020; 80053; 80061; 80164; 81000; 83605; 83735; 83874; 84484; 85007; 85025; 85027; 85610; 85730; 87040; 87088; 87804; 93005; 93041; 94640; 96365; 96375; G0378

== ENCOUNTER 2016-05-26 12:40 | Emergency (ER) | payer MEDICAID ==
[~2016-05-26] VITALS: Ht 165.1 cm; Wt 86.2 kg
[~2016-05-26 12:40] MED LIST changes: +CEFD300C3 PO; +DIVA500T15 PO; +HYDR453. TOP; +ONDA8TAB13 PO; +PRED10TA22 PO; +PROC10TA PO; +TRAM50TA2 PO
[2016-05-26] MEDS ORDERED: NS IV 1000 ML 1,000 ML IV STA (13:03)
[2016-05-26] MEDS ORDERED: HYOSCYAMINE 0.125 MG (LEVSIN) TAB SL ONE (13:15)
[2016-05-26] MEDS ORDERED: ONDANSETRON 4 MG/2 ML (SDV) Z0FRAN IVP ONE (13:15)
--- NOTE | 2016-05-26 13:23 | ED GI ---
General Chief Complaint: Rect Problems Stated Complaint: RECTAL BLEEDING/PAIN Nursing Triage Note: DISMISSED FROM THIS FACILITY YESTERDAY WITH BRONCHITIS. TODAY BEGAN HAVING BLOODY DIARRHEA EARLY THIS AM. Sepsis Screen: Possible Severe Sepsis Risk Source of Information: Patient Exam Limitations: No Limitations History of Present Illness Time Seen By Provider: 12:59 Initial Comments Here with report of multiple episodes of diarrhea today and then she noted blood on the toilet paper when she wiped. She doesn't remember any specific blood in the toilet. She was just started on Ceftin ear and prednisone for bronchitis. She is on chemotherapy and radiation for breast cancer. She just got out of the hospital yesterday morning. Does complain of some abdominal cramping. No fever today. She is taking her meds as directed. Timing/Duration: 4-6 Hours Severity/Quality: Moderate, Cramping Location: Generalized Abdomen Radiation: No Radiation Modifying Factors: Worsens With Eating Associated Symptoms: No Back Pain, No Chest Pain, No Fever/Chills, No Nausea/ Vomiting, No Swelling/Mass in Abdomen, No Weakness Allergies and Home Medications Allergies Coded Allergies: No Known Drug Allergies (Unverified , 09/27/14) Home Medications Aripiprazole 15 Mg Tablet, 15 MG PO HS, (Reported) Cefdinir 300 Mg Capsule, 300 MG PO BID, #10 Prescribed by: PHUC PAN on 05/25/16 1056 Divalproex Sodium 500 Mg Tab.er.24h, 2,000 MG PO HS, (Reported) TAKES 4 (500MG) TABLETS Hydrocortisone 453.6 Gm Cream..g., TOP BID PRN for ITCHING, (Reported) Ondansetron 8 Mg Tab.rapdis, 8 MG PO TID PRN for NAUSEA/VOMITING-1ST LINE, ( Reported) Prednisone 10 Mg Tab.ds.pk, 10 MG PO DAILY, #21 Take 6 tabs(60mg)daily,decrease by 1 tab(10MG)daily. Prescribed by: PHUC PAN on 05/25/16 1056 Prochlorperazine Maleate 10 Mg Tablet, 10 MG PO HS, (Reported) Tramadol HCl 50 Mg Tablet, 50 MG PO Q6H PRN for PAIN-MILD, (Reported) Review of Systems Constitutional: see HPI, No chills, No fever EENTM: No Symptoms Reported Respiratory: See HPI, Cough, Wheezing Cardiovascular: No Symptoms Reported Gastrointestinal: See HPI, Diarrhea, Rectal Bleeding Genitourinary: No Symptoms Reported Musculoskeletal: no symptoms reported Skin: no symptoms reported All Other Systems Reviewed Negative Unless Noted: Yes Past Lvfwxia-Xnhdlj-Mukudf Hx Patient Social History Alcohol Use: Denies Use Recreational Drug Use: No Smoking Status: Current Everyday Smoker Type Used: Cigarettes Recent Foreign Travel: No Contact w/Someone Who Travel: No Recent Infectious Disease Expo: No Recent Hopitalizations: No Immunizations Up To Date Tetanus Booster (TDap): Unknown Seasonal Allergies Seasonal Allergies: No Surgeries HX Surgeries: Yes (INFUSAPORT) Surgeries: Breast, Section, Gallbladder, Vascular Surgery Respiratory Hx Respiratory Disorders: Yes Respiratory Disorders: Asthma Cardiovascular Hx Cardiac Disorders: Yes Cardiac Disorders: High Cholesterol, Hypertension Neurological Hx Neurological Disorders: No 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 System Hx 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: No (THROUGH MENOPAUSE) Sexually Transmitted Disease: No HIV/AIDS: No Female 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 Genitourinary Hx Genitourinary Disorders: No Gastrointestinal Hx Gastrointestinal Disorders: Yes Gastrointestinal Disorders: Gastroesophageal Reflux Musculoskeletal Hx Musculoskeletal Disorders: Yes Musculoskeletal Disorders: Rheumatoid Arthritis, Chronic Back Pain Endocrine Hx Endocrine Disorders: No HEENT HX ENT Disorders: Yes (READING GLASSES) Loss of Vision: Denies Hearing Impairment: Denies Cancer Hx Cancer: Yes Cancer: Skin, Breast Psychosocial Hx Psychiatric Problems: Yes Behavioral Health Disorders: Anxiety, Bipolar, Personality Disorder, Depression Integumentary HX Skin/Integumentary Disorder: No Blood Transfusions Hx Blood Disorders: No Adverse Reaction to a Blood Tr: No (HAS HAD BLOOD WITH NO PROBLEM) Reviewed Nursing Assessment Reviewed/Agree w Nursing PMH: Yes Family Medical History Significant Family History: No Pertinent Family Hx Family Medial History: Not obtainable due to adoption (ADOPTION) Physical Exam Vital Signs VS - Last 72 Hours, by Label 05/26/16 12:48 Temp 98.2 Pulse 93 Resp 18 B/P (MAP) 74/ Pulse Ox 96 O2 Flow Rate 135.00 Capillary Refill : Less Than 3 Seconds General Appearance: WD/WN, no apparent distress HEENT: PERRL/EOMI, pharynx normal Neck: full range of motion, supple Respiratory: lungs clear, normal breath sounds Cardiovascular: regular rate, rhythm, no murmur Gastrointestinal: non tender, soft Rectal: heme positive stool, No hemorrhoids, No mass, No tenderness, other Extremities: non-tender, normal inspection Back: normal inspection, no CVA tenderness, no vertebral tenderness Neurologic/Psychiatric: no motor/sensory deficits, alert, oriented x 3 Skin: normal color, warm/dry Progress/Results/Core Measures Results/Orders Lab Results Laboratory Tests Test 05/26/16 13:34 Range/Units White Blood Count 14.9 H 4.3-11.0 10^3/uL Red Blood Count 3.97 L 4.35-5.85 10^6/uL Hemoglobin 11.8 11.5-16.0 G/DL Hematocrit 36 35-52 % Mean Corpuscular Volume 90 80-99 FL Mean Corpuscular Hemoglobin 30 25-34 PG Mean Corpuscular Hemoglobin Concent 33 32-36 G/DL Red Cell Distribution Width 13.9 10.0-14.5 % Platelet Count 184 130-400 10^3/uL Mean Platelet Volume 9.5 7.4-10.4 FL Neutrophils (%) (Auto) 90 H 42-75 % Lymphocytes (%) (Auto) 4 L 12-44 % Monocytes (%) (Auto) 6 0-12 % Eosinophils (%) (Auto) 0 0-10 % Basophils (%) (Auto) 0 0-10 % Neutrophils # (Auto) 13.3 H 1.8-7.8 X 10^3 Lymphocytes # (Auto) 0.6 L 1.0-4.0 X 10^3 Monocytes # (Auto) 0.9 0.0-1.0 X 10^3 Eosinophils # (Auto) 0.0 0.0-0.3 10^3/uL Basophils # (Auto) 0.0 0.0-0.1 10^3/uL Neutrophils % (Manual) 84 % Lymphocytes % (Manual) 5 % Monocytes % (Manual) 7 % Eosinophils % (Manual) 0 % Basophils % (Manual) 0 % Band Neutrophils 4 % Blood Morphology Comment NORMAL Sodium Level 138 135-145 MMOL/L Potassium Level 4.3 3.6-5.0 MMOL/L Chloride Level 107 98-107 MMOL/L Carbon Dioxide Level 24 21-32 MMOL/L Anion Gap 7 5-14 MMOL/L Blood Urea Nitrogen 23 H 7-18 MG/DL Creatinine 0.65 0.60-1.30 MG/DL Estimat Glomerular Filtration Rate > 60 BUN/Creatinine Ratio 35 Glucose Level 107 H 70-105 MG/DL Calcium Level 8.6 8.5-10.1 MG/DL Total Bilirubin 0.2 0.1-1.0 MG/DL Aspartate Amino Transf (AST/SGOT) 16 5-34 U/L Alanine Aminotransferase (ALT/SGPT) 15 0-55 U/L Alkaline Phosphatase 55 40-136 U/L Total Protein 6.8 6.4-8.2 G/DL Albumin 3.6 3.2-4.5 G/DL My Orders Orders - KARLIE ZHU MD Cbc With Automated Diff (05/26/16 13:03) Comprehensive Metabolic Panel (05/26/16 13:03) Ondansetron Injection (Zofran Injectio (05/26/16 13:15) Ns Iv 1000 Ml (Sodium Chloride 0.9%) (05/26/16 13:03) Hyoscyamine Sl Tablet (Levsin Sl Tablet) (05/26/16 13:15) Saline Lock/Iv-Start (05/26/16 13:03) Fecal Occult Bedside (05/26/16 13:03) Manual Differential (05/26/16 13:34) Medications Given in ED Current Medications Medications Dose Ordered Sig/Nilda Route Start Time Stop Time Status Last Admin Dose Admin Hyoscyamine Sulfate 0.125 mg ONCE ONCE SL 05/26/16 13:15 05/26/16 13:16 DC 05/26/16 13:20 0.125 MG Ondansetron HCl 4 mg ONCE ONCE IVP 05/26/16 13:15 05/26/16 13:16 DC 05/26/16 13:21 4 MG Vital Signs/I&O Vital Sign - Last 12Hours 05/26/16 12:48 Temp 98.2 Pulse 93 Resp 18 B/P (MAP) 74/ Pulse Ox 96 O2 Flow Rate 135.00 Progress Note : Progress Note Seen and evaluated. Rectal exam done. Brown stool with only trace positive Hemoccult. Labs, IV fluids, Zofran 4 mg IV and Levsin 0.125 mg by mouth given. Monitor patient. 1420: No acute findings. She does have mild elevation in the white count and this is likely the result of prednisone and steroid dosing that she is currently on for bronchitis. She is on Cefdinir which is an appropriate antibiotic. Discharged home with return precautions. Patient verbalize understanding instructions and agreement with plan. Departure Impression Impression: Primary Impression: Diarrhea Qualified Codes: R19.7 - Diarrhea, unspecified Additional Impression: Generalized abdominal cramping Disposition: 01 HOME, SELF-CARE Condition: Stable Departure-Patient Inst. Decision time for Depature: 14:26 Referrals: ABAD MURRAY MD (PCP/Family) Primary Care Physician Patient Instructions: Acute Abdomen (Belly Pain), Adult (DC), Diarrhea in Adolescents and Adults, Gastrointestinal Bleeding Add. Discharge Instructions: All discharge instructions reviewed with patient and/or family. Voiced understanding. Clear liquid diet for 24 hours and then advance as tolerated. Follow-up with your Dr. in a few days for recheck. Return for worse pain, fever , vomiting, weakness, breathing problems, increasing blood from her bottom or in her stool or other concerns as needed. You will need to follow-up with your doctor related to this bleeding for further evaluation including possible surgical consult for colonoscopy as needed. Scripts Hyoscyamine Sulfate (Levsin-Sl) 0.125 Mg Tab.subl 0.125 MG SL Q4H, #10 TAB 0 Refills Prov: KARLIE HZU MD 05/26/16 KARLIE ZHU MD May 26, 2016 13:23
[2016-05-26 13:42] LABS: BASOPHILS % (AUTO) 0 % (0-10); EOSINOPHILS % (AUTO) 0 % (0-10); LYMPHOCYTES # (AUTO) 0.6 X 10^3 (1.0-4.0); LYMPHOCYTES % (AUTO) 4 % (12-44); MEAN CORPUSCULAR HEMOGLOBIN 30 PG (25-34); MEAN CORPUSCULAR HGB CONC 33 G/DL (32-36); MEAN CORPUSCULAR VOLUME 90 FL (80-99); MEAN PLATELET VOLUME 9.5 FL (7.4-10.4); MONOCYTES # (AUTO) 0.9 X 10^3 (0.0-1.0); MONOCYTES % (AUTO) 6 % (0-12); NEUTROPHILS # (AUTO) 13.3 X 10^3 (1.8-7.8); NEUTROPHILS % (AUTO) 90 % (42-75); PLATELET COUNT 184 10^3/uL (130-400); RED BLOOD COUNT 3.97 10^6/uL (4.35-5.85); RED CELL DISTRIBUTION WIDTH 13.9 % (10.0-14.5); WHITE BLOOD COUNT 14.9 10^3/uL (4.3-11.0)
[2016-05-26 14:00] LABS: ALANINE AMINOTRANSFERASE 15 U/L (0-55); ALBUMIN 3.6 G/DL (3.2-4.5); ANION GAP 7 MMOL/L (5-14); ASPARTATE AMINO TRANSFERASE 16 U/L (5-34); BILIRUBIN,TOTAL 0.2 MG/DL (0.1-1.0); BLOOD UREA NITROGEN 23 MG/DL (7-18); BUN/CREATININE RATIO 35; CALCIUM 8.6 MG/DL (8.5-10.1); CARBON DIOXIDE 24 MMOL/L (21-32); CHLORIDE 107 MMOL/L (98-107); CREATININE SERUM 0.65 MG/DL (0.60-1.30); GFR ESTIMATED > 60; GLUCOSE 107 MG/DL (70-105); POTASSIUM 4.3 MMOL/L (3.6-5.0); SODIUM 138 MMOL/L (135-145); TOTAL PROTEIN 6.8 G/DL (6.4-8.2)
[2016-05-26 14:03] LABS: BAND NEUTROPHILS 4 %; BASOPHILS % (MANUAL) 0 %; EOSINOPHILS % (MANUAL) 0 %; LYMPHOCYTES % (MANUAL) 5 %; NEUTROPHILS % (MANUAL) 84 %
[2016-05-26] MEDS ORDERED: HYOS0.1283 SL (14:29)
[2016-05-26 15:20] VITALS: BP 135/72
== END 2016-05-26 15:18 | disposition home or self-care (01) ==
LOC: EDUNIT# 12:40 → ER 12:42
DX: R19.7 Diarrhea, unspecified (principal); R10.84 Generalized abdominal pain; K62.5 Hemorrhage of anus and rectum; I10 Essential (primary) hypertension; C50.911 Malignant neoplasm of unspecified site of right female breast; F17.210 Nicotine dependence, cigarettes, uncomplicated; Z79.899 Other long term (current) drug therapy; Z90.13 Acquired absence of bilateral breasts and nipples
CPT/HCPCS: 36415; 80053; 85007; 85027; 96374

== ENCOUNTER 2016-06-24 09:48 | Outpatient (RCR) | payer MEDICAID ==
--- OUTSIDE RECORDS SUMMARY | 2016-04-20 14:03 | XMS REPORT | Continuity of Care Document ---
Author Author [facility] Organization [facility] Address Unknown Phone Unavailable Allergies Active Description Code Type Severity Reaction Onset Reported/Identified Relationship to Patient Clinical Status Yes No Known Drug Allergies [id number] Drug Allergy Unknown N/ A 09/27/2014 Medications Problems Date Dx Coded Attending Type Code Diagnosis Diagnosed By 09/27/2014 KARLIE ZHU MD Ot 053.9 HERPES ZOSTER NOS 09/27/2014 KARLIE HZU MD Ot V68.1 ISSUE REPEAT PRESCRIPT 10/11/2014 REGINALDO ANNA MD Ot 692.6 DERMATITIS DUE TO PLANT 10/11/2014 REGINALDO ANNA MD Ot 782.1 NONSPECIF SKIN ERUPT NEC 11/08/2014 DARÍO BURROWS APRN Ot 784.2 11/08/2014 REGINALDO ANNA MD Ot F17.210 NICOTINE DEPENDENCE, CIGARETTES, UNCOMPL 11/08/2014 REGINALDO ANNA MD Ot J44.1 CHRONIC OBSTRUCTIVE PULMONARY DISEASE W 11/08/2014 REGINALDO ANNA MD Ot R06.02 SHORTNESS OF BREATH 11/08/2014 DARÍO BURROWS YARD HOSTLER Ot 784.2 11/19/2014 DARÍO BURROWS YARD HOSTLER Ot 784.2 11/21/2014 KAYLA MELENDEZ APRN Ot F17.210 NICOTINE DEPENDENCE, CIGARETTES, UNCOMPL 11/21/2014 KAYLA MELENDEZ APRN Ot F41.9 ANXIETY DISORDER, UNSPECIFIED 11/21/2014 KAYLA MELENDEZ APRN Ot J44.1 CHRONIC OBSTRUCTIVE PULMONARY DISEASE W 11/21/2014 KAYLA MELENDEZ APRN Ot R06.02 SHORTNESS OF BREATH 12/19/2014 REGINALDO ANNA MD Ot F17.210 NICOTINE DEPENDENCE, CIGARETTES, UNCOMPL 12/19/2014 REGINALDO ANNA MD Ot J06.9 ACUTE UPPER RESPIRATORY INFECTION, UNSPE 12/19/2014 REGINALDO ANNA MD Ot R05 COUGH 12/19/2014 WILFRIDO MURRAY, REGINALDO Pryor Ot R50.9 FEVER, UNSPECIFIED 12/25/2014 KAYLA MELENDEZ YARD HOSTLER Ot F17.210 NICOTINE DEPENDENCE, CIGARETTES, UNCOMPL 12/25/2014 KAYLA MELENDEZ YARD HOSTLER Ot N64.9 DISORDER OF BREAST, UNSPECIFIED 01/09/2015 DARÍO BURROWS YARD HOSTLER Ot N64.4 01/09/2015 STORMY DARÍO A YARD HOSTLER Ot N64.4 01/10/2015 STORMY DARÍO A YARD HOSTLER Ot N64.4 01/10/2015 STORMY DARÍO A YARD HOSTLER Ot N63 01/10/2015 STORMY DARÍO A YARD HOSTLER Ot R92.8 01/14/2015 STORMY DARÍO A YARD HOSTLER Ot N64.4 01/14/2015 STORMY DARÍO A YARD HOSTLER Ot N63 01/14/2015 STORMY DARÍO A YARD HOSTLER Ot R92.8 01/17/2015 STORMY DARÍO A YARD HOSTLER Ot N64.4 01/17/2015 STORMY DARÍO A YARD HOSTLER Ot N63 01/17/2015 STORMY DARÍO A YARD HOSTLER Ot R92.8 01/17/2015 MARIA LUZ MURRAY, CAM Jara Ot C50.919 01/17/2015 MARIA LUZ MURRAY, CAM Jara Ot Z01.818 01/17/2015 GAMALIEL MURRAY, CEE Pryor Ot C50.411 01/17/2015 GAMALIEL MURRAY, CEE Pryor Ot E66.9 01/17/2015 GAMALIEL MURRAY, CEE Pryor Ot E78.5 01/17/2015 GAMALIEL MURRAY, CEE Pryor Ot F17.210 01/17/2015 GAMALIEL MURRAY, CEE Pryor Ot F31.9 01/17/2015 GAMALIEL MURRAY, CEE Pryor Ot I10 01/17/2015 GAMALIEL MURRAY, CEE Pryor Ot J44.9 01/17/2015 GAMALIEL MURRAY, CEE Pryor Ot Z17.0 01/17/2015 GAMALIEL MURRAY, CEE Pryor Ot Z68.34 01/17/2015 GAMALIEL MURRAY, CEE Pryor Ot Z79.899 01/17/2015 MARIA LUZ MURRAY, CAM Jara Ot C50.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 01/21/2015 MARIA LUZ MURRAY, CAM M Ot C50.919 01/21/2015 MARIA LUZ MURRAY, CAM Jara Ot Z01.818 01/22/2015 SHERRY ROGEL MD (DDU) Ot Z02.71 01/22/2015 DARÍO BURROWS YARD HOSTLER Ot N64.4 01/22/2015 DARÍO BURROWS YARD HOSTLER Ot N63 01/22/2015 DARÍO BURROWS YARD HOSTLER Ot R92.8 01/22/2015 GAMALIEL MURRAY, CEE K Ot C50.411 01/22/2015 GAMALIEL MURRAY, CEE K Ot E66.9 01/22/2015 GAMALIEL MURRAY, CEE K Ot E78.5 01/22/2015 GAMALIEL MURRAY, CEE K Ot F17.210 01/22/2015 GAMALIEL MURRAY, CEE K Ot F31.9 01/22/2015 GAMALIEL MURRAY, CEE K Ot I10 01/22/2015 GAMALIEL MURRAY, CEE K Ot J44.9 01/22/2015 GAMALIEL MURRAY, CEE K Ot Z17.0 01/22/2015 GAMALIEL MURRAY, CEE K Ot Z68.34 01/22/2015 GAMALIEL MURRAY, CEE K Ot Z79.899 01/22/2015 GAMALIEL MURRAY, CEE K Ot C50.411 01/22/2015 GAMALIEL MURRAY, CEE K Ot Z51.81 01/22/2015 GAMALIEL MURRAY, CEE K Ot Z79.899 01/24/2015 SHERRY ROGEL MD (DDU) Ot Z02.71 01/24/2015 DARÍO BURROWS YARD HOSTLER Ot N64.4 01/24/2015 DARÍO BURROWS YARD HOSTLER Ot N63 01/24/2015 DARÍO BURROWS YARD HOSTLER Ot R92.8 01/24/2015 GAMALIEL MURRAY, CEE K Ot C50.411 01/24/2015 GAMALIEL MURRAY, CEE K Ot E66.9 01/24/2015 GAMALIEL MURRAY, CEE K Ot E78.5 01/24/2015 GAMALIEL MURRAY, CEE K Ot F17.210 01/24/2015 GAMALIEL MURRAY, CEE K Ot F31.9 01/24/2015 GAMALIEL MURRAY, CEE K Ot I10 01/24/2015 GAMALIEL MURRAY, CEE K Ot J44.9 01/24/2015 GAMALIEL MURRAY, CEE K Ot Z17.0 01/24/2015 GAMALIEL MURRAY, CEE K Ot Z68.34 01/24/2015 GAMALIEL MURRAY, CEE K Ot Z79.899 01/24/2015 GAMALIEL MURRAY, CEE K Ot C50.411 01/24/2015 GAMALIEL MURRAY, CEE K Ot Z51.81 01/24/2015 GAMALIEL MURRAY, CEE K Ot Z79.899 01/24/2015 GAMALIEL MURRAY, CEE K Ot R92.8 01/24/2015 KARIN TANGSINGH S MIXER MACHINE FEEDER Ot C50.511 01/24/2015 KITTY SANDRA S MIXER MACHINE FEEDER Ot E66.9 01/24/2015 KITTY KARINAH S MIXER MACHINE FEEDER Ot E78.5 01/24/2015 KARIN TNAGAH S MIXER MACHINE FEEDER Ot F17.210 01/24/2015 KITTY SANDRA S MIXER MACHINE FEEDER Ot F31.9 01/24/2015 KARIN TANGSINGH S MIXER MACHINE FEEDER Ot I10 01/24/2015 KARIN TANGSINGH S MIXER MACHINE FEEDER Ot J44.9 01/24/2015 KITTY SANDRA S MIXER MACHINE FEEDER Ot Z17.1 01/24/2015 KITTY SANDRA S MIXER MACHINE FEEDER Ot Z68.35 01/24/2015 KITTY SANDRA S MIXER MACHINE FEEDER Ot Z79.899 01/24/2015 GAMALIEL MURRAY, CEE K Ot R92.8 01/24/2015 KITTY SANDRA S MIXER MACHINE FEEDER Ot C50.511 01/24/2015 KARIN TANGSINGH S MIXER MACHINE FEEDER Ot E66.9 01/24/2015 SANDRA TANG S MIXER MACHINE FEEDER Ot E78.5 01/24/2015 KARIN TANGSINGH S MIXER MACHINE FEEDER Ot F17.210 01/24/2015 KITTY KARINAH S MIXER MACHINE FEEDER Ot F31.9 01/24/2015 KITTY SANDRA S MIXER MACHINE FEEDER Ot I10 01/24/2015 KARIN TANGSINGH S MIXER MACHINE FEEDER Ot J44.9 01/24/2015 KARIN TANGSINGH S MIXER MACHINE FEEDER Ot Z17.1 01/24/2015 KITTY KARINAH S MIXER MACHINE FEEDER Ot Z68.35 01/24/2015 KARIN TANGSINGH S MIXER MACHINE FEEDER Ot Z79.899 01/24/2015 GAMALIEL MURRAY, CEE K Ot C50.411 01/24/2015 GAMALIEL MURRAY, CEE K Ot E66.9 01/24/2015 GAMALIEL MURRAY, CEE Pryor Ot E78.5 01/24/2015 GAMALIEL MURRAY, CEE Pryor Ot F17.210 01/24/2015 GAMALIEL MURRAY, CEE Pryor Ot F31.9 01/24/2015 GAMALIEL MURRAY, CEE Pryor Ot I10 01/24/2015 GAMALIEL MURRAY, CEE Pryor Ot J44.9 01/24/2015 GAMALIEL MURRAY, CEE Pryor Ot Z17.0 01/24/2015 GAMALIEL MURRAY, CEE Pryor Ot Z68.34 01/24/2015 GAMALIEL MURRAY, CEE Pryor Ot Z79.899 01/24/2015 DARÍO BURROWS YARD HOSTLER Ot N63 01/24/2015 DARÍO BURROWS YARD HOSTLER Ot R92.8 01/24/2015 DARÍO BURROWS YARD HOSTLER Ot N64.4 01/24/2015 SHERRY ROGEL MD (DDU) Ot Z02.71 01/24/2015 DARÍO BURROWS YARD HOSTLER Ot N64.4 01/24/2015 DARÍO BURROWS YARD HOSTLER Ot N63 01/24/2015 DARÍO BURROWS YARD HOSTLER Ot R92.8 01/24/2015 GAMALIEL MURRAY, CEE Pryor Ot C50.411 01/24/2015 GAMALIEL MURRAY, CEE Pryor Ot E66.9 01/24/2015 GAMALIEL MURRAY, CEE Pryor Ot E78.5 01/24/2015 GAMALIEL MURRAY, CEE Pryor Ot F17.210 01/24/2015 GAMALIEL MURRAY, CEE Pryor Ot F31.9 01/24/2015 GAMALIEL MURRAY, CEE Pryor Ot I10 01/24/2015 GAMALIEL MURRAY, CEE Pryor Ot J44.9 01/24/2015 GAMALIEL MURRAY, CEE Pryor Ot Z17.0 01/24/2015 GAMALIEL MURRAY, CEE Pryor Ot Z68.34 01/24/2015 GAMALIEL MURRAY, CEE Pryor Ot Z79.899 01/24/2015 GAMALIEL MURRAY, CEE Pryor Ot C50.411 01/24/2015 GAMALIEL MURRAY, CEE Pryor Ot Z51.81 01/24/2015 GAMALIEL MURRAY, CEE Pryor Ot Z79.899 01/24/2015 GAMALIEL MURRAY, CEE Pryor Ot R92.8 01/24/2015 SANDRA TANG MIXER MACHINE FEEDER Ot C50.511 01/24/2015 SANDRA TANG MIXER MACHINE FEEDER Ot E66.9 01/24/2015 SANDRA TANG MIXER MACHINE FEEDER Ot E78.5 01/24/2015 SANDRA TANG S MIXER MACHINE FEEDER Ot F17.210 01/24/2015 SANDRA TANG S MIXER MACHINE FEEDER Ot F31.9 01/24/2015 SANDRA TANG S MIXER MACHINE FEEDER Ot I10 01/24/2015 SANDRA TANG S MIXER MACHINE FEEDER Ot J44.9 01/24/2015 SANDRA TANG S MIXER MACHINE FEEDER Ot Z17.1 01/24/2015 SANDRA TANG S MIXER MACHINE FEEDER Ot Z68.35 01/24/2015 SANDRA TANG S MIXER MACHINE FEEDER Ot Z79.899 02/13/2015 GAMALIEL MURRAY, CEE Pryor Ot C50.511 02/13/2015 GAMALIEL MURRAY, CEE K Ot Z51.81 02/13/2015 GAMALIEL MURRAY, CEE K Ot Z79.899 02/13/2015 GAMALIEL MURRAY, CEE Pryor Ot C50.511 02/13/2015 GAMALIEL MURRAY, CEE Pryor Ot Z51.81 02/13/2015 GAMALIEL MURRAY, CEE K Ot Z79.899 02/17/2015 PEBBLES MURRAY, SHERRY You (DDU) Ot Z02.71 02/17/2015 DARÍO BURROWS YARD HOSTLER Ot N64.4 02/17/2015 DARÍO BURROWS YARD HOSTLER Ot N63 02/17/2015 DARÍO BURROWS YARD HOSTLER Ot R92.8 02/17/2015 GAMALIEL MURRAY, CEE Pryor Ot C50.411 02/17/2015 GAMALIEL MURRAY, CEE Pryor Ot E66.9 02/17/2015 GAMALIEL MURRAY, CEE Pryor Ot E78.5 02/17/2015 GAMALIEL MURRAY, CEE K Ot F17.210 02/17/2015 GAMALIEL MURRAY, CEE Konstantin Ot F31.9 02/17/2015 GAMALIEL MURRAY, CEE Pryor Ot I10 02/17/2015 GAMALIEL MURRAY, CEE Pryor Ot J44.9 02/17/2015 GAMALIEL MURRAY, CEE K Ot Z17.0 02/17/2015 GAMALIEL MURRAY, CEE K Ot Z68.34 02/17/2015 GAMALIEL MURRAY, CEE K Ot Z79.899 02/17/2015 GAMALIEL MURRAY, CEE K Ot C50.411 02/17/2015 GAMALIEL MURRAY, CEE K Ot Z51.81 02/17/2015 GAMALIEL MURRAY, CEE K Ot Z79.899 02/17/2015 GAMALIEL MURRAY, CEE K Ot C50.511 02/17/2015 GAMALIEL MURRAY, CEE K Ot R92.8 02/17/2015 TANGSANDRA MIXER MACHINE FEEDER Ot C50.511 02/17/2015 TANG, SANDRA S MIXER MACHINE FEEDER Ot E66.9 02/17/2015 TANG, SANDRA S MIXER MACHINE FEEDER Ot E78.5 02/17/2015 TANG, HILAH S MIXER MACHINE FEEDER Ot F17.210 02/17/2015 TANG, HILAH S MIXER MACHINE FEEDER Ot F31.9 02/17/2015 TANG, SANDRA S MIXER MACHINE FEEDER Ot I10 02/17/2015 TANGSANDRA S MIXER MACHINE FEEDER Ot J44.9 02/17/2015 TANG, SANDRA S MIXER MACHINE FEEDER Ot Z17.1 02/17/2015 TANGSANDRA S MIXER MACHINE FEEDER Ot Z68.35 02/17/2015 KITTYSANDRA S MIXER MACHINE FEEDER Ot Z79.899 02/17/2015 GAMALIEL MURRAY, CEE K Ot C50.511 02/17/2015 GAMALIEL MURRAY, CEE K Ot Z51.81 02/17/2015 GAMALIEL MURRAY, CEE K Ot Z79.899 02/17/2015 GAMALIEL MURRAY, CEE K Ot C50.411 02/17/2015 GAMALIEL MURRAY, CEE K Ot E66.9 02/17/2015 GAMALIEL MURRAY, CEE K Ot E78.5 02/17/2015 GAMALIEL MURRAY, CEE K Ot F17.210 02/17/2015 GAMALIEL MURRYA, CEE K Ot F31.9 02/17/2015 GAMALIEL MURRAY, CEE K Ot I10 02/17/2015 GAMALIEL MURRAY, CEE K Ot J44.9 02/17/2015 GAMALIEL MURRAY, CEE K Ot Z17.0 02/17/2015 GAMALIEL MURRAY, CEE K Ot Z68.34 02/17/2015 GAMALIEL MURRAY, CEE K Ot Z79.899 02/21/2015 GAMALIEL MURRAY, CEE K Ot C50.511 03/17/2015 PEBBLES MURRAY, SHERRY You (DDU) Ot Z02.71 03/17/2015 DARÍO BURROWS YARD HOSTLER Ot N64.4 03/17/2015 DARÍO BURROWS YARD HOSTLER Ot N63 03/17/2015 DARÍO BURROWS YARD HOSTLER Ot R92.8 03/17/2015 GAMALIEL MURRAY, CEE Pryor Ot C50.411 03/17/2015 GAMALIEL MURRAY, CEE Pryor Ot E66.9 03/17/2015 GAMALIEL MURRAY, CEE Pryor Ot E78.5 03/17/2015 GAMALIEL MURRAY, CEE Pryor Ot F17.210 03/17/2015 GAMALIEL MURRAY, CEE Pryor Ot F31.9 03/17/2015 GAMALIEL MURRAY, CEE Pryor Ot I10 03/17/2015 GAMALIEL MURRAY, CEE Pryor Ot J44.9 03/17/2015 GAMALIEL MURRAY, CEE Pryor Ot Z17.0 03/17/2015 GAMALIEL MURRAY, CEE Pryor Ot Z68.34 03/17/2015 GAMALIEL MURRAY, CEE Pryor Ot Z79.899 03/17/2015 GAMALIEL MURRAY, CEE Pryor Ot C50.411 03/17/2015 GAMALIEL MURRAY, CEE Pryor Ot Z51.81 03/17/2015 GAMALIEL MURRAY, CEE Pryor Ot Z79.899 03/17/2015 GAMALIEL MURRAY, CEE Pryor Ot C50.511 03/17/2015 GAMALIEL MURRAY, CEE Pryor Ot R92.8 03/17/2015 KARIN TANGSINGH S MIXER MACHINE FEEDER Ot C50.511 03/17/2015 KARIN TANGSINGH S MIXER MACHINE FEEDER Ot E66.9 03/17/2015 SANDRA TANG S MIXER MACHINE FEEDER Ot E78.5 03/17/2015 KARIN TANGSINGH S MIXER MACHINE FEEDER Ot F17.210 03/17/2015 KITTY SANDRA S MIXER MACHINE FEEDER Ot F31.9 03/17/2015 KARIN TANGSINGH S MIXER MACHINE FEEDER Ot I10 03/17/2015 SANDRA TANG S MIXER MACHINE FEEDER Ot J44.9 03/17/2015 KARIN TANGSINGH S MIXER MACHINE FEEDER Ot Z17.1 03/17/2015 SANDRA TANG S MIXER MACHINE FEEDER Ot Z68.35 03/17/2015 SANDRA TANG S MIXER MACHINE FEEDER Ot Z79.899 03/17/2015 GAMALIEL MURRAY, CEE Pryor Ot C50.511 03/17/2015 GAMALIEL MURRAY, CEE Pryor Ot Z51.81 03/17/2015 GAMALIEL MURRAY, CEE Pryor Ot Z79.899 03/17/2015 GAMALIEL MURRAY, CEE Pryor Ot C50.511 03/19/2015 MARIA LUZ MURRAY, CAM Jara Ot C50.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 03/19/2015 MARIA LUZ MURRAY, CAM Jara Ot Z11.2 ENCOUNTER FOR SCREENING FOR OTHER BACTER 03/20/2015 GAMALIEL MURRAY, CEE Pryor Ot C50.511 03/20/2015 PEBBLES MURRAY, SHERRY You (U) Ot Z02.71 03/20/2015 DARÍO BURROWS YARD HOSTLER Ot N64.4 03/20/2015 DARÍO BURROWS YARD HOSTLER Ot N63 03/20/2015 DARÍO BURROWS YARD HOSTLER Ot R92.8 03/20/2015 GAMALIEL MURRAY, CEE K Ot C50.411 03/20/2015 GAMALIEL MURRYA, CEE K Ot E66.9 03/20/2015 GAMALIEL MURRAY, CEE K Ot E78.5 03/20/2015 GAMALIEL MURRAY, CEE K Ot F17.210 03/20/2015 GAMALIEL MURRAY, CEE K Ot F31.9 03/20/2015 GAMALIEL MURRAY, CEE K Ot I10 03/20/2015 GAMALIEL MURRAY, CEE K Ot J44.9 03/20/2015 GAMALIEL MURRAY, CEE K Ot Z17.0 03/20/2015 GAMALIEL MURRAY, CEE K Ot Z68.34 03/20/2015 GAMALIEL MURRAY, CEE K Ot Z79.899 03/20/2015 GAMALIEL MURRAY, CEE K Ot C50.411 03/20/2015 GAMALIEL MURRAY, CEE K Ot Z51.81 03/20/2015 GAMALIEL MURRAY, CEE K Ot Z79.899 03/20/2015 GAMALIEL MURRAY, CEE K Ot C50.511 03/20/2015 GAMALIEL MURRAY, CEE K Ot R92.8 03/20/2015 SANDRA TANG MIXER MACHINE FEEDER Ot C50.511 03/20/2015 SANDRA TANG MIXER MACHINE FEEDER Ot E66.9 03/20/2015 SANDRA TANG MIXER MACHINE FEEDER Ot E78.5 03/20/2015 SANDRA TANG MIXER MACHINE FEEDER Ot F17.210 03/20/2015 SANDRA TANG MIXER MACHINE FEEDER Ot F31.9 03/20/2015 SANDRA TANG MIXER MACHINE FEEDER Ot I10 03/20/2015 SANDRA TANG MIXER MACHINE FEEDER Ot J44.9 03/20/2015 SANDRA TANG MIXER MACHINE FEEDER Ot Z17.1 03/20/2015 SANDRA TANG MIXER MACHINE FEEDER Ot Z68.35 03/20/2015 SANDRA TANG S MIXER MACHINE FEEDER Ot Z79.899 03/20/2015 GAMALIEL MURRAY, CEE K Ot C50.511 03/20/2015 GAMALIEL MURRAY, CEE K Ot Z51.81 03/20/2015 GAMALIEL MURRAY, CEE K Ot Z79.899 03/20/2015 GAMALIEL MURRAY, CEE Pryor Ot C50.511 03/20/2015 MARIA LUZ MURRAY, CAM M Ot C50.911 03/20/2015 MARIA LUZ MURRAY, CAM M Ot Z01.818 03/20/2015 GAMALIEL MURRAY, CEE K Ot C50.511 03/20/2015 KARIN TANGAH S MIXER MACHINE FEEDER Ot C50.511 03/20/2015 SANDRA TANG S MIXER MACHINE FEEDER Ot E66.9 03/20/2015 SANDRA TANG S MIXER MACHINE FEEDER Ot E78.5 03/20/2015 SANDRA TANG S MIXER MACHINE FEEDER Ot F17.210 03/20/2015 SANDRA TAGN S MIXER MACHINE FEEDER Ot F31.9 03/20/2015 SANDRA TANG S MIXER MACHINE FEEDER Ot I10 03/20/2015 SANDRA TANG S MIXER MACHINE FEEDER Ot J44.9 03/20/2015 SANDRA TANG S MIXER MACHINE FEEDER Ot Z17.1 03/20/2015 SANDRA TANG S MIXER MACHINE FEEDER Ot Z68.35 03/20/2015 SANDRA TANG S MIXER MACHINE FEEDER Ot Z79.899 03/20/2015 GAMALIEL MURRAY, CEE Pryor Ot C50.511 03/20/2015 GAMALIEL MURRAY, CEE Pryor Ot Z51.81 03/20/2015 GAMALIEL MURRAY, CEE Pryor Ot Z79.899 03/20/2015 SANDRA TANG S MIXER MACHINE FEEDER Ot C50.511 03/20/2015 SANDRA TANG S MIXER MACHINE FEEDER Ot E66.9 03/20/2015 SANDRA TANG S MIXER MACHINE FEEDER Ot E78.5 03/20/2015 SANDRA TANG S MIXER MACHINE FEEDER Ot F17.210 03/20/2015 SANDRA TANG S MIXER MACHINE FEEDER Ot F31.9 03/20/2015 SANDRA TANG S MIXER MACHINE FEEDER Ot I10 03/20/2015 SANDRA TANG S MIXER MACHINE FEEDER Ot J44.9 03/20/2015 SANDRA TANG S MIXER MACHINE FEEDER Ot Z17.1 03/20/2015 SANDRA TANG MIXER MACHINE FEEDER Ot Z68.35 03/20/2015 SANDRA TANG MIXER MACHINE FEEDER Ot Z79.899 03/20/2015 GAMALIEL MURRAY, CEE Konstantin Ot R92.8 03/20/2015 GAMALIEL MURRAY, CEE Konstantin Ot C50.411 03/20/2015 GAMALIEL MURRAY, CEE Konstantin Ot E66.9 03/20/2015 GAMALIEL MURRAY, CEE Konstantin Ot E78.5 03/20/2015 GAMALIEL MURRAY, CEE Konstantin Ot F17.210 03/20/2015 GAMALIEL MURRAY, CEE Konstantin Ot F31.9 03/20/2015 GAMALIEL MURRAY, CEE K Ot I10 03/20/2015 GAMALIEL MURRAY, CEE Konstantin Ot J44.9 03/20/2015 GAMALIEL MURRAY, CEE Konstantin Ot Z17.0 03/20/2015 GAMALIEL MURRAY, CEE Pryor Ot Z68.34 03/20/2015 GAMALIEL MURRAY, CEE Konstantin Ot Z79.899 03/20/2015 GAMALIEL MURRAY, CEE Konstantin Ot C50.411 03/20/2015 GAMALIEL UMRRAY, CEE Konstantin Ot E66.9 03/20/2015 GAMALIEL MURRAY, CEE Konstantin Ot E78.5 03/20/2015 GAMALIEL MURRAY, CEE Konstantin Ot F17.210 03/20/2015 GAMALIEL MURRAY, CEE Konstantin Ot F31.9 03/20/2015 GAMALIEL MURRAY, CEE Konstantin Ot I10 03/20/2015 GAMALIEL MURRAY, CEE Pryor Ot J44.9 03/20/2015 GAMALIEL MURRAY, CEE Konstantin Ot Z17.0 03/20/2015 GAMALIEL MURRAY, CEE Konstantin Ot Z68.34 03/20/2015 GAMALIEL MURRAY, CEE Konstantin Ot Z79.899 03/20/2015 DARÍO BURROWS YARD HOSTLER Ot N63 03/20/2015 DARÍO BURROWS YARD HOSTLER Ot R92.8 03/20/2015 GAMALIEL MURRAY, CEE Pryor Ot C50.411 03/20/2015 GAMALIEL MURRAY, CEE Pryor Ot E66.9 03/20/2015 GAMALIEL MURRAY, CEE Pryor Ot E78.5 03/20/2015 GAMALIEL MURRAY, CEE Pryor Ot F17.210 03/20/2015 GAMALIEL MURRAY, CEE Pryor Ot F31.9 03/20/2015 GAMALIEL MURRAY, CEE Pryor Ot I10 03/20/2015 GAMALIEL MURRAY, CEE Pryor Ot J44.9 03/20/2015 GAMALIEL MURRAY, CEE K Ot Z17.0 03/20/2015 GAMALIEL MURRAY, CEE K Ot Z68.34 03/20/2015 GAMALIEL MURRAY, CEE Pryor Ot Z79.899 03/20/2015 BURROWS, DARÍO A YARD HOSTLER Ot N63 03/20/2015 BURROWS, DARÍO A YARD HOSTLER Ot R92.8 03/20/2015 BURROWS, DARÍO A YARD HOSTLER Ot N64.4 03/20/2015 BURROWS, DARÍO A YARD HOSTLER Ot 784.2 03/25/2015 GAMALIEL MURRAY, CEE Konstantin Ot C50.511 03/25/2015 GAMALIEL MURRAY, CEE Konstantin Ot C50.511 03/25/2015 GAMALIEL MURRAY, CEE Konstantin Ot Z51.81 03/25/2015 GAMALIEL MURRAY, CEE Pryor Ot Z79.899 03/25/2015 GAMALIEL MURRAY, CEE Konstantin Ot C50.511 03/25/2015 GAMALIEL MURRAY, CEE Konstantin Ot C50.411 03/25/2015 GAMALIEL MURRAY, CEE Pryor Ot Z51.81 03/25/2015 GAMALIEL MURRAY, CEE Pryor Ot Z79.899 03/25/2015 BURROWS, DARÍO You YARD HOSTLER Ot N63 03/25/2015 BURROWS, DARÍO A YARD HOSTLER Ot R92.8 03/25/2015 BURROWS, DARÍO A YARD HOSTLER Ot 784.2 03/31/2015 BURROWS, DARÍO A YARD HOSTLER Ot 784.2 03/31/2015 PEBBLES MURRAY, SHERRY You (DDU) Ot Z02.71 03/31/2015 BURROWS, DARÍO A YARD HOSTLER Ot N64.4 03/31/2015 BURROWS, DARÍO A YARD HOSTLER Ot N63 03/31/2015 BURROWS, DARÍO A YARD HOSTLER Ot R92.8 03/31/2015 GAMALIEL MURRAY, CEE Konstantin Ot C50.411 03/31/2015 GAMALIEL MURRAY, CEE Pryor Ot E66.9 03/31/2015 GAMALIEL MURRAY, CEE Pryor Ot E78.5 03/31/2015 GAMALIEL MURRAY, CEE Konstantin Ot F17.210 03/31/2015 GAMALIEL MURRAY, CEE Konstantin Ot F31.9 03/31/2015 GAMALIEL MURRAY, CEE Pryor Ot I10 03/31/2015 GAMALIEL MURRAY, CEE Konstantin Ot J44.9 03/31/2015 GAMALIEL MURRAY, CEE K Ot Z17.0 03/31/2015 GAMALIEL MURRAY, CEE K Ot Z68.34 03/31/2015 GAMALIEL MURRAY, CEE K Ot Z79.899 03/31/2015 GAMALIEL MURRAY, CEE K Ot C50.411 03/31/2015 GAMALIEL MURRAY, CEE K Ot Z51.81 03/31/2015 GAMALIEL MURRAY, CEE K Ot Z79.899 03/31/2015 GAMALIEL MURRAY, CEE K Ot C50.511 03/31/2015 GAMALIEL MURRAY, CEE Pryor Ot R92.8 03/31/2015 KITTY SANDRA S MIXER MACHINE FEEDER Ot C50.511 03/31/2015 KITTY HILAH S MIXER MACHINE FEEDER Ot E66.9 03/31/2015 KITTY HILAH S MIXER MACHINE FEEDER Ot E78.5 03/31/2015 KITTY HILAH S MIXER MACHINE FEEDER Ot F17.210 03/31/2015 KITTY KARINAH S MIXER MACHINE FEEDER Ot F31.9 03/31/2015 KITTY SANDRA S MIXER MACHINE FEEDER Ot I10 03/31/2015 KITTY SANDRA S MIXER MACHINE FEEDER Ot J44.9 03/31/2015 KITTY SANDRA S MIXER MACHINE FEEDER Ot Z17.1 03/31/2015 KITTY KARINAH S MIXER MACHINE FEEDER Ot Z68.35 03/31/2015 KITTY HILAH S MIXER MACHINE FEEDER Ot Z79.899 03/31/2015 GAMALIEL MURRAY, CEE Pryor Ot C50.511 03/31/2015 GAMALIEL MURRAY, CEE Pryor Ot Z51.81 03/31/2015 GAMALIEL MURRAY, CEE Pryor Ot Z79.899 03/31/2015 GAMALIEL MURRAY, CEE Pryor Ot C50.511 03/31/2015 MARIA LUZ MURRAY, CAM Jara Ot C50.911 03/31/2015 MARIA LUZ MURRAY, CAM Jara Ot Z01.818 04/04/2015 DARÍO BURROWS YARD HOSTLER Ot 784.2 04/04/2015 DARÍO BURROWS YARD HOSTLER Ot N64.4 04/04/2015 DARÍO BURROWS YARD HOSTLER Ot N63 04/04/2015 DARÍO BURROWS YARD HOSTLER Ot R92.8 04/04/2015 GAMALIEL MURRAY, CEE Pryor Ot C50.511 04/04/2015 GAMALIEL MURRAY, CEE Pryor Ot R92.8 04/04/2015 SANDRA TANG MIXER MACHINE FEEDER Ot C50.511 04/04/2015 SANDRA TANG MIXER MACHINE FEEDER Ot E66.9 04/04/2015 SANDRA TANG S MIXER MACHINE FEEDER Ot E78.5 04/04/2015 SANDRA TANG S MIXER MACHINE FEEDER Ot F17.210 04/04/2015 SANDRA TANG MIXER MACHINE FEEDER Ot F31.9 04/04/2015 SANDRA TANG MIXER MACHINE FEEDER Ot I10 04/04/2015 SANDRA TANG S MIXER MACHINE FEEDER Ot J44.9 04/04/2015 SANDRA TANG MIXER MACHINE FEEDER Ot Z17.1 04/04/2015 SANDRA TANG MIXER MACHINE FEEDER Ot Z68.35 04/04/2015 SANDRA TANG S MIXER MACHINE FEEDER Ot Z79.899 04/04/2015 GAMALIEL MURRAY, CEE Pryor Ot C50.511 04/04/2015 GAMALIEL MURRAY, CEE Konstantin Ot Z51.81 04/04/2015 GAMALIEL MURRAY, CEE K Ot Z79.899 04/04/2015 GAMALIEL MURRAY, CEE K Ot C50.511 04/07/2015 DARÍO BURROWS YARD HOSTLER Ot 784.2 04/07/2015 PEBBLES MURRAY, SHERRY You (DDU) Ot Z02.71 04/07/2015 DARÍO BURROWS YARD HOSTLER Ot N64.4 04/07/2015 DARÍO BURROWS YARD HOSTLER Ot N63 04/07/2015 DARÍO BURROWS YARD HOSTLER Ot R92.8 04/07/2015 GAMALIEL MURRAY, CEE Konstantin Ot C50.411 04/07/2015 GAMALIEL MURRAY, CEE Pryor Ot E66.9 04/07/2015 GAMALIEL MURRAY, CEE Konstantin Ot E78.5 04/07/2015 GAMALIEL MURRAY, CEE Konstantin Ot F17.210 04/07/2015 GAMALIEL MURRAY, CEE Pryor Ot F31.9 04/07/2015 GAMALIEL MURRAY, CEE K Ot I10 04/07/2015 GAMALIEL MURRAY, CEE Pryor Ot J44.9 04/07/2015 GAMALIEL MURRAY, CEE Konstantin Ot Z17.0 04/07/2015 GAMALIEL MURRAY, CEE K Ot Z68.34 04/07/2015 GAMALIEL MURRAY, CEE K Ot Z79.899 04/07/2015 GAMALIEL MURRAY, CEE K Ot C50.411 04/07/2015 GAMALIEL MURRAY, CEE Pryor Ot Z51.81 04/07/2015 GAMALIEL MURRAY, CEE K Ot Z79.899 04/07/2015 GAMALIEL MURRAY, CEE Konstantin Ot C50.511 04/07/2015 GAMALIEL MURRAY, CEE Pryor Ot R92.8 04/07/2015 KITTY SANDRA Lazar MIXER MACHINE FEEDER Ot C50.511 04/07/2015 KITTY SANDRA S MIXER MACHINE FEEDER Ot E66.9 04/07/2015 KITTY SANDRA S MIXER MACHINE FEEDER Ot E78.5 04/07/2015 KITTY SANDRA S MIXER MACHINE FEEDER Ot F17.210 04/07/2015 KITTY SANDRA S MIXER MACHINE FEEDER Ot F31.9 04/07/2015 KITTY SANDRA S MIXER MACHINE FEEDER Ot I10 04/07/2015 KITTY SANDRA S MIXER MACHINE FEEDER Ot J44.9 04/07/2015 KITTY SANDRA S MIXER MACHINE FEEDER Ot Z17.1 04/07/2015 KITTY SANDRA S MIXER MACHINE FEEDER Ot Z68.35 04/07/2015 KITTY SANDRA S MIXER MACHINE FEEDER Ot Z79.899 04/07/2015 GAMALIEL MURRAY, CEE Pryor Ot C50.511 04/07/2015 GAMALIEL MURRAY, CEE Pryor Ot Z51.81 04/07/2015 GAMALIEL MURRAY, CEE Pryor Ot Z79.899 04/07/2015 GAMALIEL MURRAY, CEE Pryor Ot C50.511 04/07/2015 MARIA LUZ MURRAY, CAM Jara Ot C50.911 04/07/2015 MARIA LUZ MURRAY, CAM M Ot Z01.818 04/14/2015 GAMALIEL MURRAY, CEE Pryor Ot C50.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 04/14/2015 GAMALIEL MURRAY, CEE Pryor Ot E66.9 OBESITY, UNSPECIFIED 04/14/2015 GAMALIEL MURRAY, CEE Pryor Ot E78.5 HYPERLIPIDEMIA, UNSPECIFIED 04/14/2015 GAMALIEL MURRAY, CEE Pryor Ot F17.210 NICOTINE DEPENDENCE, CIGARETTES, UNCOMPL 04/14/2015 GAMALIEL MURRAY, CEE Pryor Ot F31.9 BIPOLAR DISORDER, UNSPECIFIED 04/14/2015 GAMALIEL MURRAY, CEE Pryor Ot I10 ESSENTIAL (PRIMARY) HYPERTENSION 04/14/2015 GAMALIEL MURRAY, CEE Pryor Ot J44.9 CHRONIC OBSTRUCTIVE PULMONARY DISEASE, U 04/14/2015 GAMALIEL MURRAY, CEE Pryor Ot Z17.0 ESTROGEN RECEPTOR POSITIVE STATUS [ER+] 04/14/2015 GAMALIEL MURRAY, CEE Pryor Ot Z51.11 ENCOUNTER FOR ANTINEOPLASTIC CHEMOTHERAP 04/14/2015 GAMALIEL MURRAY, CEE Pryor Ot Z68.34 BODY MASS INDEX (BMI) 34.0-34.9, ADULT 04/14/2015 GAMALIEL MURRAY, CEE Pryor Ot Z79.899 OTHER HALF-WAY (CURRENT) DRUG THERAPY 04/21/2015 GAMALIEL MURRAY, CEE Pryor Ot C50.411 04/21/2015 GAMALIEL MURRAY, CEE Pryor Ot E66.9 04/21/2015 GAMALIEL MURRAY, CEE Pryor Ot E78.5 04/21/2015 GAMALIEL MURRAY, CEE Pryor Ot F17.210 04/21/2015 GAMALIEL MURRAY, CEE Pryor Ot F31.9 04/21/2015 GAMALIEL MURRAY, CEE Pryor Ot I10 04/21/2015 GAMALIEL MURRAY, CEE Pryor Ot J44.9 04/21/2015 GAMALIEL MURRAY, CEE Pryor Ot Z17.0 04/21/2015 GAMALIEL MURRAY, CEE Pryor Ot Z68.34 04/21/2015 GAMALIEL MURRAY, CEE Konstantin Ot Z79.899 04/22/2015 GAMALIEL MURRAY, CEE Pryor Ot C50.411 04/22/2015 GAMALIEL MURRAY, CEE Pryor Ot E66.9 04/22/2015 GAMALIEL MURRAY, CEE Pryor Ot E78.5 04/22/2015 GAMALIEL MURRAY, CEE Konstantin Ot F17.210 04/22/2015 GAMALIEL MURRAY, CEE Konstantin Ot F31.9 04/22/2015 GAMALIEL MURRAY, CEE Pryor Ot I10 04/22/2015 GAMALIEL MURRAY, CEE Pryor Ot J44.9 04/22/2015 GAMALIEL MURRAY, CEE Pryor Ot Z17.0 04/22/2015 GAMALIEL MURRAY, CEE Pryor Ot Z68.34 04/22/2015 GAMALIEL MURRAY, CEE Pryor Ot Z79.899 04/24/2015 GAMALIEL MURRAY, CEE Pryor Ot C50.511 04/24/2015 GAMALIEL MURRAY, CEE Pryor Ot Z51.81 04/24/2015 GAMALIEL MURRAY, CEE Pryor Ot Z79.899 04/29/2015 SANDRA TANG Ot C50.511 04/29/2015 SANDRA TANG MIXER MACHINE FEEDER Ot Z79.899 04/30/2015 GAMALIEL MURRAY, CEE Pryor Ot C50.411 04/30/2015 GAMALIEL MURRAY, CEE Pryor Ot E66.9 04/30/2015 GAMALIEL MURRAY, CEE Pryor Ot E78.5 04/30/2015 GAMALIEL MURRAY, CEE Pryor Ot F17.210 04/30/2015 GAMALIEL MURRAY, CEE Pryor Ot F31.9 04/30/2015 GAMALIEL MURRAY, CEE K Ot I10 04/30/2015 GAMALIEL MURRAY, CEE Pryor Ot J44.9 04/30/2015 GAMALIEL MURRAY, CEE Pryor Ot Z17.0 04/30/2015 GAMALIEL MURRAY, CEE Pryor Ot Z68.34 04/30/2015 GAMALIEL MURRAY, CEE Pryor Ot Z79.899 05/02/2015 GAMALIEL MURRAY, CEE Konstantin Ot C50.511 05/02/2015 GAMALIEL MURRAY, CEE Konstantin Ot Z51.81 05/02/2015 GAMALIEL MURRAY, CEE Pryor Ot C50.411 05/02/2015 GAMALIEL MURRAY, CEE Pryor Ot E66.9 05/02/2015 GAMALIEL MURRAY, CEE Pryor Ot E78.5 05/02/2015 GAMALIEL MURRAY, CEE Pryor Ot F17.210 05/02/2015 GAMALIEL MURRAY, CEE Pryor Ot F31.9 05/02/2015 GAMALIEL MURRAY, CEE Pryor Ot I10 05/02/2015 GAMALIEL MURRAY, CEE Pryor Ot J44.9 05/02/2015 GAMALIEL MURRAY, CEE Pryor Ot Z17.0 05/02/2015 GAMALIEL MURRAY, CEE Pryor Ot Z68.34 05/02/2015 GAMALIEL MURRAY, CEE Konstantin Ot Z79.899 05/15/2015 GAMALIEL MURRAY, CEE Konstantin Ot C50.511 05/15/2015 GAMALIEL MURRAY, CEE Pryor Ot Z51.81 06/17/2015 DARÍO BURROWS YARD HOSTLER Ot 784.2 SWELLING IN HEAD NECK 06/17/2015 SHERRY ROGEL MD ([facility]) Ot Z02.71 ENCOUNTER FOR DISABILITY DETERMINATION 06/17/2015 DARÍO BURROWS YARD HOSTLER Ot N64.4 MASTODYNIA 06/17/2015 DARÍO BURROWS YARD HOSTLER Ot N63 UNSPECIFIED LUMP IN BREAST 06/17/2015 DARÍO BURROWS YARD HOSTLER Ot R92.8 OTH ABN AND INCONCLUSIVE FINDINGS ON DX 06/17/2015 GAMALIEL MURRAY, CEE Pryor Ot C50.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 06/17/2015 GAMALIEL MURRAY, CEE Pryor Ot Z51.81 ENCOUNTER FOR THERAPEUTIC DRUG LEVEL MON 06/17/2015 GAMALIEL CEE MURRAY Ot Z79.899 OTHER POULTRY DEBEAKER (CURRENT) DRUG THERAPY 06/17/2015 CEE ALSTON MD Ot 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 06/17/2015 CEE ALSTON MD Ot R92.8 OTH ABN AND INCONCLUSIVE FINDINGS ON DX 06/17/2015 KARIN TANGSINGH Lazar MIXER MACHINE FEEDER Ot 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 06/17/2015 SANDRA TANG S MIXER MACHINE FEEDER Ot E66.9 OBESITY, UNSPECIFIED 06/17/2015 KARIN TANGSINGH S MIXER MACHINE FEEDER Ot E78.5 HYPERLIPIDEMIA, UNSPECIFIED 06/17/2015 KITTY SANDRA S MIXER MACHINE FEEDER Ot F17.210 NICOTINE DEPENDENCE, CIGARETTES, UNCOMPL 06/17/2015 SANDRA TANG Cady MIXER MACHINE FEEDER Ot F31.9 BIPOLAR DISORDER, UNSPECIFIED 06/17/2015 KARIN TANGSINGH S MIXER MACHINE FEEDER Ot I10 ESSENTIAL (PRIMARY) HYPERTENSION 06/17/2015 SANDRA TANG Cady MIXER MACHINE FEEDER Ot J44.9 CHRONIC OBSTRUCTIVE PULMONARY DISEASE, U 06/17/2015 SANDRA TANG Cady MIXER MACHINE FEEDER Ot Z17.1 ESTROGEN RECEPTOR NEGATIVE STATUS [ER-] 06/17/2015 KARIN TANGSINGH S MIXER MACHINE FEEDER Ot Z68.35 BODY MASS INDEX (BMI) 35.0-35.9, ADULT 06/17/2015 SANDRA TANG Cady MIXER MACHINE FEEDER Ot Z79.899 OTHER POULTRY DEBEAKER (CURRENT) DRUG THERAPY 06/17/2015 CEE ALSTON MD Ot 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 06/17/2015 CEE ALSTON MD Ot Z51.81 ENCOUNTER FOR THERAPEUTIC DRUG LEVEL MON 06/17/2015 CEE ALSTON MD Ot Z79.899 OTHER HALF-WAY (CURRENT) DRUG THERAPY 06/17/2015 CEE ALSTON MD Ot 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 06/17/2015 CAM BRAGA MD Ot C50.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 06/17/2015 CMA BRAGA MD Ot Z01.818 ENCOUNTER FOR OTHER PREPROCEDURAL EXAMIN 06/17/2015 CEE ALSTON MD Ot 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 06/17/2015 CEE ALSTON MD Ot Z51.81 ENCOUNTER FOR THERAPEUTIC DRUG LEVEL MON 06/17/2015 CEE ALSTON MD Ot Z79.899 OTHER POULTRY DEBEAKER (CURRENT) DRUG THERAPY 06/17/2015 SANDRA TANG Ot 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 06/17/2015 SANDRA TANG Ot Z79.899 OTHER POULTRY DEBEAKER (CURRENT) DRUG THERAPY 06/17/2015 CEE ALSTON MD Ot C50.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 06/17/2015 CEE ALSTON MD Ot E66.9 OBESITY, UNSPECIFIED 06/17/2015 CEE ALSTON MD Ot E78.5 HYPERLIPIDEMIA, UNSPECIFIED 06/17/2015 CEE ALSTON MD Ot F17.210 NICOTINE DEPENDENCE, CIGARETTES, UNCOMPL 06/17/2015 CEE ALSTON MD Ot F31.9 BIPOLAR DISORDER, UNSPECIFIED 06/17/2015 CEE ALSTON MD Ot I10 ESSENTIAL (PRIMARY) HYPERTENSION 06/17/2015 CEE ALSTON MD Ot J44.9 CHRONIC OBSTRUCTIVE PULMONARY DISEASE, U 06/17/2015 CEE ALSTON MD Ot Z17.0 ESTROGEN RECEPTOR POSITIVE STATUS [ER+] 06/17/2015 CEE ALSTON MD Ot Z68.34 BODY MASS INDEX (BMI) 34.0-34.9, ADULT 06/17/2015 CEE ALSTON MD Ot Z79.899 OTHER POULTRY DEBEAKER (CURRENT) DRUG THERAPY 06/17/2015 CEE ALSTON MD Ot 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 06/17/2015 CEE ALSTON MD Ot Z51.81 ENCOUNTER FOR THERAPEUTIC DRUG LEVEL MON 07/30/2015 CEE ALSTON MD Ot C50.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 07/30/2015 CEE ALSTON MD Ot E66.9 OBESITY, UNSPECIFIED 07/30/2015 CEE ALSTON MD, Ot E78.5 HYPERLIPIDEMIA, UNSPECIFIED 07/30/2015 CEE ALSTON MD Ot F17.210 NICOTINE DEPENDENCE, CIGARETTES, UNCOMPL 07/30/2015 CEE ALSTON MD Ot F31.9 BIPOLAR DISORDER, UNSPECIFIED 07/30/2015 CEE ALSTON MD Ot I10 ESSENTIAL (PRIMARY) HYPERTENSION 07/30/2015 CEE ALSTON MD Ot J44.9 CHRONIC OBSTRUCTIVE PULMONARY DISEASE, U 07/30/2015 CEE ALSTON MD Ot Z17.0 ESTROGEN RECEPTOR POSITIVE STATUS [ER+] 07/30/2015 CEE ALSTON MD, Ot Z51.11 ENCOUNTER FOR ANTINEOPLASTIC CHEMOTHERAP 07/30/2015 CEE ALSTON MD Ot Z68.34 BODY MASS INDEX (BMI) 34.0-34.9, ADULT 07/30/2015 CEE ALSTON MD Ot Z79.899 OTHER HALF-WAY (CURRENT) DRUG THERAPY 07/31/2015 CEE ALSTON MD Ot C50.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 07/31/2015 CEE ALSTON MD Ot E66.9 OBESITY, UNSPECIFIED 07/31/2015 CEE ALSTON MD, Ot E78.5 HYPERLIPIDEMIA, UNSPECIFIED 07/31/2015 CEE ALSTON MD, Ot F17.210 NICOTINE DEPENDENCE, CIGARETTES, UNCOMPL 07/31/2015 CEE ALSTON MD, Ot F31.9 BIPOLAR DISORDER, UNSPECIFIED 07/31/2015 CEE ALSTON MD Ot I10 ESSENTIAL (PRIMARY) HYPERTENSION 07/31/2015 CEE ALSTON MD, Ot J44.9 CHRONIC OBSTRUCTIVE PULMONARY DISEASE, U 07/31/2015 CEE ALSTON MD, Ot Z17.0 ESTROGEN RECEPTOR POSITIVE STATUS [ER+] 07/31/2015 CEE ALSTON MD, Ot Z51.11 ENCOUNTER FOR ANTINEOPLASTIC CHEMOTHERAP 07/31/2015 CEE ALSTON MD, Ot Z68.34 BODY MASS INDEX (BMI) 34.0-34.9, ADULT 07/31/2015 CEE ALSTON MD, Ot Z79.899 OTHER POULTRY DEBEAKER (CURRENT) DRUG THERAPY 08/05/2015 CEE ALSTON MD, Ot C50.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 08/05/2015 CEE ALSTON MD Ot E66.9 OBESITY, UNSPECIFIED 08/05/2015 CEE ALSTON MD Ot E78.5 HYPERLIPIDEMIA, UNSPECIFIED 08/05/2015 CEE ALSTON MD Ot F17.210 NICOTINE DEPENDENCE, CIGARETTES, UNCOMPL 08/05/2015 CEE ALSTON MD Ot F31.9 BIPOLAR DISORDER, UNSPECIFIED 08/05/2015 CEE ALSOTN MD Ot I10 ESSENTIAL (PRIMARY) HYPERTENSION 08/05/2015 CEE ALSTON MD Ot J44.9 CHRONIC OBSTRUCTIVE PULMONARY DISEASE, U 08/05/2015 CEE ALSTON MD, Ot Z17.0 ESTROGEN RECEPTOR POSITIVE STATUS [ER+] 08/05/2015 CEE ALSTON MD Ot Z51.11 ENCOUNTER FOR ANTINEOPLASTIC CHEMOTHERAP 08/05/2015 CEE ALSTON MD Ot Z68.34 BODY MASS INDEX (BMI) 34.0-34.9, ADULT 08/05/2015 CEE ALSTON MD Ot Z79.899 OTHER POULTRY DEBEAKER (CURRENT) DRUG THERAPY 01/01/2016 CEE ALSTON MD Ot C50.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 01/01/2016 CEE ALSTON MD, Ot E66.9 OBESITY, UNSPECIFIED 01/01/2016 CEE ALSTON MD Ot E78.5 HYPERLIPIDEMIA, UNSPECIFIED 01/01/2016 CEE ALSTON MD Ot F17.210 NICOTINE DEPENDENCE, CIGARETTES, UNCOMPL 01/01/2016 CEE ALSTON MD Ot F31.9 BIPOLAR DISORDER, UNSPECIFIED 01/01/2016 CEE ALSTON MD Ot I10 ESSENTIAL (PRIMARY) HYPERTENSION 01/01/2016 CEE ALSTON MD Ot J44.9 CHRONIC OBSTRUCTIVE PULMONARY DISEASE, U 01/01/2016 CEE ALSTON MD, Ot Z17.0 ESTROGEN RECEPTOR POSITIVE STATUS [ER+] 01/01/2016 CEE ALSTON MD Ot Z51.11 ENCOUNTER FOR ANTINEOPLASTIC CHEMOTHERAP 01/01/2016 CEE ALSTON MD Ot Z68.34 BODY MASS INDEX (BMI) 34.0-34.9, ADULT 01/01/2016 CEE ALSTON MD Ot Z79.899 OTHER POULTRY DEBEAKER (CURRENT) DRUG THERAPY 02/16/2016 DARÍO BURROWS YARD HOSTLER Ot 784.2 SWELLING IN HEAD NECK 02/16/2016 SHERRY ROGEL MD (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 02/16/2016 CEE ALSTON MD Ot R92.8 OTH ABN AND INCONCLUSIVE FINDINGS ON DX 02/16/2016 SANDRA TANG MIXER MACHINE FEEDER Ot 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 02/16/2016 SANDRA TANG MIXER MACHINE FEEDER Ot E66.9 OBESITY, UNSPECIFIED 02/16/2016 SANDRA TANG S MIXER MACHINE FEEDER Ot E78.5 HYPERLIPIDEMIA, UNSPECIFIED 02/16/2016 SANDRA TANG S MIXER MACHINE FEEDER Ot F17.210 NICOTINE DEPENDENCE, CIGARETTES, UNCOMPL 02/16/2016 SANDRA TANG S MIXER MACHINE FEEDER Ot F31.9 BIPOLAR DISORDER, UNSPECIFIED 02/16/2016 SANDRA TANG S MIXER MACHINE FEEDER Ot I10 ESSENTIAL (PRIMARY) HYPERTENSION 02/16/2016 SANDRA TANG MIXER MACHINE FEEDER Ot J44.9 CHRONIC OBSTRUCTIVE PULMONARY DISEASE, U 02/16/2016 SANDRA TANG S MIXER MACHINE FEEDER Ot Z17.1 ESTROGEN RECEPTOR NEGATIVE STATUS [ER-] 02/16/2016 SANDRA TANG S MIXER MACHINE FEEDER Ot Z68.35 BODY MASS INDEX (BMI) 35.0-35.9, ADULT 02/16/2016 SANDRA TANG S MIXER MACHINE FEEDER Ot Z79.899 OTHER HALF-WAY (CURRENT) DRUG THERAPY 02/16/2016 CEE ALSTON MD Ot 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 02/16/2016 CEE ALSTON MD Ot Z51.81 ENCOUNTER FOR THERAPEUTIC DRUG LEVEL MON 02/16/2016 CEE ALSTON MD Ot Z79.899 OTHER POULTRY DEBEAKER (CURRENT) DRUG THERAPY 02/16/2016 CEE ALSTON MD Ot 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 02/16/2016 CAM BRAGA MD Ot C50.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 02/16/2016 CAM BRAGA MD Ot Z01.818 ENCOUNTER FOR OTHER PREPROCEDURAL EXAMIN 02/16/2016 CEE ALSTON MD Ot 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 02/16/2016 CEE ALSTON MD Ot Z51.81 ENCOUNTER FOR THERAPEUTIC DRUG LEVEL MON 02/16/2016 CEE ALSTON MD Ot Z79.899 OTHER HALF-WAY (CURRENT) DRUG THERAPY 02/16/2016 SANDRA TANG Ot 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 02/16/2016 SANDRA TANG Ot Z79.899 OTHER HALF-WAY (CURRENT) DRUG THERAPY 02/16/2016 CEE ALSTON MD Ot 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 02/16/2016 CEE ALSTON MD Ot Z51.81 ENCOUNTER FOR THERAPEUTIC DRUG LEVEL MON 02/16/2016 EULOGIO BRAGA MD Ot C50.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 02/16/2016 EULOGIO BRAGA MD Ot E66.9 OBESITY, UNSPECIFIED 02/16/2016 EULOGIO BRAGA MD Ot E78.5 HYPERLIPIDEMIA, UNSPECIFIED 02/16/2016 EULOGIO BRAGA MD Ot F17.210 NICOTINE DEPENDENCE, CIGARETTES, UNCOMPL 02/16/2016 EULOGIO BRAGA MD Ot F31.9 BIPOLAR DISORDER, UNSPECIFIED 02/16/2016 EULOGIO BRAGA MD Ot I10 ESSENTIAL (PRIMARY) HYPERTENSION 02/16/2016 EULOGIO BRAGA MD, Ot J44.9 CHRONIC OBSTRUCTIVE PULMONARY DISEASE, U 02/16/2016 EULOGIO BRAGA MD Ot Z17.0 ESTROGEN RECEPTOR POSITIVE STATUS [ER+] 02/16/2016 EULOGIO BRAGA MD Ot Z68.34 BODY MASS INDEX (BMI) 34.0-34.9, ADULT 02/16/2016 EULOGIO BRAGA MD Ot Z79.899 OTHER POULTRY DEBEAKER (CURRENT) DRUG THERAPY 02/16/2016 DARÍO BURROWS APRN Ot 784.2 SWELLING IN HEAD NECK 02/16/2016 SHERRY ROGEL MD ([facility]) Ot Z02.71 ENCOUNTER FOR DISABILITY DETERMINATION 02/16/2016 DARÍO BURROWS APRN Ot N64.4 MASTODYNIA 02/16/2016 DARÍO BURROWS APRN Ot N63 UNSPECIFIED LUMP IN BREAST 02/16/2016 DARÍO BURROWS APRN Ot R92.8 OTH ABN AND INCONCLUSIVE FINDINGS ON DX 02/16/2016 CEE ALSTON MD Ot C50.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 02/16/2016 CEE ALSTON MD Ot Z51.81 ENCOUNTER FOR THERAPEUTIC DRUG LEVEL MON 02/16/2016 CEE ALSTON MD Ot Z79.899 OTHER HALF-WAY (CURRENT) DRUG THERAPY 02/16/2016 CEE ALSTON MD Ot 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 02/16/2016 CEE ALSTON MD Ot R92.8 OTH ABN AND INCONCLUSIVE FINDINGS ON DX 02/16/2016 SANDRA TANG MIXER MACHINE FEEDER Ot 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 02/16/2016 SANDRA TANG MIXER MACHINE FEEDER Ot E66.9 OBESITY, UNSPECIFIED 02/16/2016 SANDRA TANG MIXER MACHINE FEEDER Ot E78.5 HYPERLIPIDEMIA, UNSPECIFIED 02/16/2016 SANDRA TANG S MIXER MACHINE FEEDER Ot F17.210 NICOTINE DEPENDENCE, CIGARETTES, UNCOMPL 02/16/2016 SANDRA TANG S MIXER MACHINE FEEDER Ot F31.9 BIPOLAR DISORDER, UNSPECIFIED 02/16/2016 SANDRA TANG S MIXER MACHINE FEEDER Ot I10 ESSENTIAL (PRIMARY) HYPERTENSION 02/16/2016 SANDRA TANG S MIXER MACHINE FEEDER Ot J44.9 CHRONIC OBSTRUCTIVE PULMONARY DISEASE, U 02/16/2016 SANDRA TANG S MIXER MACHINE FEEDER Ot Z17.1 ESTROGEN RECEPTOR NEGATIVE STATUS [ER-] 02/16/2016 SANDRA TANG MIXER MACHINE FEEDER Ot Z68.35 BODY MASS INDEX (BMI) 35.0-35.9, ADULT 02/16/2016 SANDRA TANG S MIXER MACHINE FEEDER Ot Z79.899 OTHER POULTRY DEBEAKER (CURRENT) DRUG THERAPY 02/16/2016 CEE ALSTON MD Ot 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 02/16/2016 CEE ALSTON MD Ot Z51.81 ENCOUNTER FOR THERAPEUTIC DRUG LEVEL MON 02/16/2016 CEE ALSTON MD Ot Z79.899 OTHER POULTRY DEBEAKER (CURRENT) DRUG THERAPY 02/16/2016 CEE ALSTON MD Ot 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 02/16/2016 MARIA LUZ MURRAY, CAM Jara Ot C50.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 02/16/2016 MARIA LUZ MURRAY, CAM Jara Ot Z01.818 ENCOUNTER FOR OTHER PREPROCEDURAL EXAMIN 02/16/2016 CEE ALSTON MD Ot 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 02/16/2016 CEE ALSTON MD Ot Z51.81 ENCOUNTER FOR THERAPEUTIC DRUG LEVEL MON 02/16/2016 CEE ALSTON MD Ot Z79.899 OTHER POULTRY DEBEAKER (CURRENT) DRUG THERAPY 02/16/2016 SANDRA TANG Ot 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 02/16/2016 SANDRA TANG Ot Z79.899 OTHER POULTRY DEBEAKER (CURRENT) DRUG THERAPY 02/16/2016 CEE ALSTON MD Ot 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 02/16/2016 CEE ALSTON MD Ot Z51.81 ENCOUNTER FOR THERAPEUTIC DRUG LEVEL MON 02/16/2016 EULOGIO BRAGA MD, Ot C50.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 02/16/2016 EULOGIO BRAGA MD Ot E66.9 OBESITY, UNSPECIFIED 02/16/2016 EULOGIO BRAGA MD Ot E78.5 HYPERLIPIDEMIA, UNSPECIFIED 02/16/2016 EULOGIO BRAGA MD, Ot F17.210 NICOTINE DEPENDENCE, CIGARETTES, UNCOMPL 02/16/2016 EULOGIO BRAGA MD, Ot F31.9 BIPOLAR DISORDER, UNSPECIFIED 02/16/2016 EULOGIO BRAGA MD Ot I10 ESSENTIAL (PRIMARY) HYPERTENSION 02/16/2016 EULOGIO BRAGA MD, Ot J44.9 CHRONIC OBSTRUCTIVE PULMONARY DISEASE, U 02/16/2016 EULOGIO BRAGA MD Ot Z17.0 ESTROGEN RECEPTOR POSITIVE STATUS [ER+] 02/16/2016 EULOGIO BRAGA MD Ot Z68.34 BODY MASS INDEX (BMI) 34.0-34.9, ADULT 02/16/2016 EULOGIO BRAGA MD Ot Z79.899 OTHER POULTRY DEBEAKER (CURRENT) DRUG THERAPY 02/16/2016 EDIL QURESHI Ot F17.210 NICOTINE DEPENDENCE, CIGARETTES, UNCOMPL 02/16/2016 EDIL QURESHI Ot F41.9 ANXIETY DISORDER, UNSPECIFIED 02/16/2016 EDIL QURESHI Ot I10 ESSENTIAL (PRIMARY) HYPERTENSION 02/16/2016 EDIL QURESHI Ot Z95.9 PRESENCE OF CARDIAC AND VASCULAR IMPLANT 02/16/2016 DARÍO BURROWS YARD HOSTLER Ot 784.2 SWELLING IN HEAD NECK 02/16/2016 PEBBLES MURRAY, SHERRY You ([facility]) Ot Z02.71 ENCOUNTER FOR DISABILITY DETERMINATION 02/16/2016 DARÍO BURROWS YARD HOSTLER Ot N64.4 MASTODYNIA 02/16/2016 DARÍO BURROWS YARD HOSTLER Ot N63 UNSPECIFIED LUMP IN BREAST 02/16/2016 DARÍO BURROWS APRN Ot R92.8 OTH ABN AND INCONCLUSIVE FINDINGS ON DX 02/16/2016 CEE ALSTON MD Ot C50.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 02/16/2016 CEE ALSTON MD Ot Z51.81 ENCOUNTER FOR THERAPEUTIC DRUG LEVEL MON 02/16/2016 CEE ALSTON MD Ot Z79.899 OTHER POULTRY DEBEAKER (CURRENT) DRUG THERAPY 02/16/2016 CEE ALSTON MD Ot 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 02/16/2016 CEE ALSTON MD Ot R92.8 OTH ABN AND INCONCLUSIVE FINDINGS ON DX 02/16/2016 SANDRA TANG Ot 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 02/16/2016 SANDRA TANG Ot E66.9 OBESITY, UNSPECIFIED 02/16/2016 SANDRA TANGP Ot E78.5 HYPERLIPIDEMIA, UNSPECIFIED 02/16/2016 SANDRA TANGP Ot F17.210 NICOTINE DEPENDENCE, CIGARETTES, UNCOMPL 02/16/2016 SANDRA TANGP Ot F31.9 BIPOLAR DISORDER, UNSPECIFIED 02/16/2016 SANDRA TANGP Ot I10 ESSENTIAL (PRIMARY) HYPERTENSION 02/16/2016 SANDRA TANG Ot J44.9 CHRONIC OBSTRUCTIVE PULMONARY DISEASE, U 02/16/2016 SANDRA TANGP Ot Z17.1 ESTROGEN RECEPTOR NEGATIVE STATUS [ER-] 02/16/2016 SANDRA TANG Ot Z68.35 BODY MASS INDEX (BMI) 35.0-35.9, ADULT 02/16/2016 SADNRA TANG Ot Z79.899 OTHER HALF-WAY (CURRENT) DRUG THERAPY 02/16/2016 CEE ALSTON MD Ot 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 02/16/2016 CEE ALSTON MD Ot Z51.81 ENCOUNTER FOR THERAPEUTIC DRUG LEVEL MON 02/16/2016 CEE ALSTON MD Ot Z79.899 OTHER POULTRY DEBEAKER (CURRENT) DRUG THERAPY 02/16/2016 CEE ALSTON MD Ot 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 02/16/2016 MARIA LUZ MURRAY, CAM Jara Ot C50.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 02/16/2016 CAM BRAGA MD Ot Z01.818 ENCOUNTER FOR OTHER PREPROCEDURAL EXAMIN 02/16/2016 CEE ALSTON MD Ot 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 02/16/2016 CEE ALSTON MD Ot Z51.81 ENCOUNTER FOR THERAPEUTIC DRUG LEVEL MON 02/16/2016 CEE ALSTON MD Ot Z79.899 OTHER HALF-WAY (CURRENT) DRUG THERAPY 02/16/2016 SANDRA TANG Ot 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 02/16/2016 SANDRA TANG Ot Z79.899 OTHER HALF-WAY (CURRENT) DRUG THERAPY 02/16/2016 CEE ALSTON MD Ot 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 02/16/2016 CEE ALSTON MD Ot Z51.81 ENCOUNTER FOR THERAPEUTIC DRUG LEVEL MON 02/16/2016 EULOGIO BRAGA MD Ot C50.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 02/16/2016 EULOGIO BRAGA MD Ot E66.9 OBESITY, UNSPECIFIED 02/16/2016 EULOGIO BRAGA MD, Ot E78.5 HYPERLIPIDEMIA, UNSPECIFIED 02/16/2016 EULOGIO BRAGA MD Ot F17.210 NICOTINE DEPENDENCE, CIGARETTES, UNCOMPL 02/16/2016 EULOGIO BRAGA MD Ot F31.9 BIPOLAR DISORDER, UNSPECIFIED 02/16/2016 EULOGIO BRAGA MD Ot I10 ESSENTIAL (PRIMARY) HYPERTENSION 02/16/2016 EULOGIO BRAGA MD Ot J44.9 CHRONIC OBSTRUCTIVE PULMONARY DISEASE, U 02/16/2016 EULOGIO BRAGA MD Ot Z17.0 ESTROGEN RECEPTOR POSITIVE STATUS [ER+] 02/16/2016 EULOGIO BRAGA MD Ot Z68.34 BODY MASS INDEX (BMI) 34.0-34.9, ADULT 02/16/2016 EULOGIO BRAGA MD, Ot Z79.899 OTHER HALF-WAY (CURRENT) DRUG THERAPY 02/17/2016 EDIL QURESHI Ot F17.210 NICOTINE DEPENDENCE, CIGARETTES, UNCOMPL 02/17/2016 EDIL QURESHI Ot F41.9 ANXIETY DISORDER, UNSPECIFIED 02/17/2016 EDIL QURESHI Ot I10 ESSENTIAL (PRIMARY) HYPERTENSION 02/17/2016 EDIL QURESHI Ot Z95.9 PRESENCE OF CARDIAC AND VASCULAR IMPLANT 03/01/2016 DARÍO BURROWS APRN Ot 784.2 SWELLING IN HEAD NECK 03/01/2016 SHERRY ROGEL MD (DDU) Ot Z02.71 ENCOUNTER FOR DISABILITY DETERMINATION 03/01/2016 DARÍO BURROWS YARD HOSTLER Ot N64.4 MASTODYNIA 03/01/2016 DARÍO BURROWS APRN Ot N63 UNSPECIFIED LUMP IN BREAST 03/01/2016 DARÍO BURROWS APRN Ot R92.8 OTH ABN AND INCONCLUSIVE FINDINGS ON DX 03/01/2016 CEE ALSTON MD Ot C50.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 03/01/2016 CEE ALSTON MD Ot Z51.81 ENCOUNTER FOR THERAPEUTIC DRUG LEVEL MON 03/01/2016 CEE ALSTON MD Ot Z79.899 OTHER HALF-WAY (CURRENT) DRUG THERAPY 03/01/2016 CEE ALSTON MD Ot 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 03/01/2016 CEE ALSTON MD Ot R92.8 OTH ABN AND INCONCLUSIVE FINDINGS ON DX 03/01/2016 SANDRA TANG Ot 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 03/01/2016 SANDRA TANG Ot E66.9 OBESITY, UNSPECIFIED 03/01/2016 TANG, HILAH S MIXER MACHINE FEEDER Ot E78.5 HYPERLIPIDEMIA, UNSPECIFIED 03/01/2016 SANDRA TANG MIXER MACHINE FEEDER Ot F17.210 NICOTINE DEPENDENCE, CIGARETTES, UNCOMPL 03/01/2016 SANDRA TANG MIXER MACHINE FEEDER Ot F31.9 BIPOLAR DISORDER, UNSPECIFIED 03/01/2016 SANDRA TANG MIXER MACHINE FEEDER Ot I10 ESSENTIAL (PRIMARY) HYPERTENSION 03/01/2016 TANGSANDRA Lazar MIXER MACHINE FEEDER Ot J44.9 CHRONIC OBSTRUCTIVE PULMONARY DISEASE, U 03/01/2016 SANDRA TANG MIXER MACHINE FEEDER Ot Z17.1 ESTROGEN RECEPTOR NEGATIVE STATUS [ER-] 03/01/2016 SANDRA TANG MIXER MACHINE FEEDER Ot Z68.35 BODY MASS INDEX (BMI) 35.0-35.9, ADULT 03/01/2016 TANGSANDRA Lazar MIXER MACHINE FEEDER Ot Z79.899 OTHER POULTRY DEBEAKER (CURRENT) DRUG THERAPY 03/01/2016 CEE ALSTON MD Ot 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 03/01/2016 CEE ALSTON MD Ot Z51.81 ENCOUNTER FOR THERAPEUTIC DRUG LEVEL MON 03/01/2016 CEE ALSTON MD Ot Z79.899 OTHER POULTRY DEBEAKER (CURRENT) DRUG THERAPY 03/01/2016 CEE ALSTON MD Ot 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 03/01/2016 MARIA LUZ MURRAY, CAM Jara Ot C50.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 03/01/2016 MARIA LUZ MURRAY, CAM Jara Ot Z01.818 ENCOUNTER FOR OTHER PREPROCEDURAL EXAMIN 03/01/2016 CEE ALSTON MD Ot 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 03/01/2016 CEE ALSTON MD Ot Z51.81 ENCOUNTER FOR THERAPEUTIC DRUG LEVEL MON 03/01/2016 CEE ALSTON MD Ot Z79.899 OTHER POULTRY DEBEAKER (CURRENT) DRUG THERAPY 03/01/2016 SANDRA TANGP Ot 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 03/01/2016 SANDRA TANGP Ot Z79.899 OTHER POULTRY DEBEAKER (CURRENT) DRUG THERAPY 03/01/2016 CEE ALSTON MD Ot 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 03/01/2016 CEE ALSTON MD Ot Z51.81 ENCOUNTER FOR THERAPEUTIC DRUG LEVEL MON 03/01/2016 DARÍO BURROWS YARD HOSTLER Ot 784.2 SWELLING IN HEAD NECK 03/01/2016 SHERRY ROGEL MD (DDU) Ot Z02.71 ENCOUNTER FOR DISABILITY DETERMINATION 03/01/2016 DARÍO BURROWS YARD HOSTLER Ot N64.4 MASTODYNIA 03/01/2016 DARÍO BURROWS YARD HOSTLER Ot N63 UNSPECIFIED LUMP IN BREAST 03/01/2016 DARÍO BURROWS APRN Ot R92.8 OTH ABN AND INCONCLUSIVE FINDINGS ON DX 03/01/2016 CEE ALSTON MD Ot C50.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 03/01/2016 CEE ALSTON MD Ot Z51.81 ENCOUNTER FOR THERAPEUTIC DRUG LEVEL MON 03/01/2016 CEE ALSTON MD Ot Z79.899 OTHER POULTRY DEBEAKER (CURRENT) DRUG THERAPY 03/01/2016 CEE ALSTON MD Ot 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 03/01/2016 CEE ALSTON MD Ot R92.8 OTH ABN AND INCONCLUSIVE FINDINGS ON DX 03/01/2016 SANDRA TANG Ot 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 03/01/2016 SANDRA TANG Ot E66.9 OBESITY, UNSPECIFIED 03/01/2016 SANDRA TANG Ot E78.5 HYPERLIPIDEMIA, UNSPECIFIED 03/01/2016 SANDRA TANG Ot F17.210 NICOTINE DEPENDENCE, CIGARETTES, UNCOMPL 03/01/2016 SANDRA TANGP Ot F31.9 BIPOLAR DISORDER, UNSPECIFIED 03/01/2016 SANDRA TANG Ot I10 ESSENTIAL (PRIMARY) HYPERTENSION 03/01/2016 SANDRA TANG Ot J44.9 CHRONIC OBSTRUCTIVE PULMONARY DISEASE, U 03/01/2016 SANDRA TANG Ot Z17.1 ESTROGEN RECEPTOR NEGATIVE STATUS [ER-] 03/01/2016 SANDRA TANGP Ot Z68.35 BODY MASS INDEX (BMI) 35.0-35.9, ADULT 03/01/2016 SANDRA TANGP Ot Z79.899 OTHER HALF-WAY (CURRENT) DRUG THERAPY 03/01/2016 CEE ALSTON MD Ot 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 03/01/2016 CEE ALSTON MD Ot Z51.81 ENCOUNTER FOR THERAPEUTIC DRUG LEVEL MON 03/01/2016 CEE ALSTON MD Ot Z79.899 OTHER POULTRY DEBEAKER (CURRENT) DRUG THERAPY 03/01/2016 CEE ALSTON MD Ot 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 03/01/2016 CAM BRAGA MD Ot C50.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 03/01/2016 CAM BRAGA MD Ot Z01.818 ENCOUNTER FOR OTHER PREPROCEDURAL EXAMIN 03/01/2016 CEE ALSTON MD Ot 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 03/01/2016 CEE ALSTON MD Ot Z51.81 ENCOUNTER FOR THERAPEUTIC DRUG LEVEL MON 03/01/2016 CEE ALSTON MD Ot Z79.899 OTHER POULTRY DEBEAKER (CURRENT) DRUG THERAPY 03/01/2016 SANDRA TANG Ot 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 03/01/2016 SANDRA TANG Ot Z79.899 OTHER POULTRY DEBEAKER (CURRENT) DRUG THERAPY 03/01/2016 CEE ALSTON MD Ot 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 03/01/2016 CEE ALSTON MD Ot Z51.81 ENCOUNTER FOR THERAPEUTIC DRUG LEVEL MON 03/02/2016 EDIL QURESHI Ot F17.210 NICOTINE DEPENDENCE, CIGARETTES, UNCOMPL 03/02/2016 EDIL QURESHI Ot F41.9 ANXIETY DISORDER, UNSPECIFIED 03/02/2016 EDIL QURESHI Ot I10 ESSENTIAL (PRIMARY) HYPERTENSION 03/02/2016 EDIL QURESHI Ot Z95.9 PRESENCE OF CARDIAC AND VASCULAR IMPLANT 03/02/2016 ADE FOWLER Ot Z51.81 ENCOUNTER FOR THERAPEUTIC DRUG LEVEL MON 03/02/2016 ADE FOWLER Ot Z79.899 OTHER POULTRY DEBEAKER (CURRENT) DRUG THERAPY 03/02/2016 ADE FOWLER Ot Z51.81 ENCOUNTER FOR THERAPEUTIC DRUG LEVEL MON 03/02/2016 ADE FOWLER Ot Z79.899 OTHER POULTRY DEBEAKER (CURRENT) DRUG THERAPY 03/04/2016 ADE FOWLER Ot Z51.81 ENCOUNTER FOR THERAPEUTIC DRUG LEVEL MON 03/04/2016 ADE FOWLER Ot Z79.899 OTHER POULTRY DEBEAKER (CURRENT) DRUG THERAPY 03/04/2016 KAYLA MELENDEZ APRN Ot C50.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 03/04/2016 KAYLA MELENDEZ APRN Ot F17.210 NICOTINE DEPENDENCE, CIGARETTES, UNCOMPL 03/04/2016 KAYLA MELENDEZ APRN Ot I10 ESSENTIAL (PRIMARY) HYPERTENSION 03/04/2016 KAYLA MELENDEZ APRN Ot J44.9 CHRONIC OBSTRUCTIVE PULMONARY DISEASE, U 03/04/2016 KAYLA MELENDEZ APRN Ot N61.0 MASTITIS WITHOUT ABSCESS 03/04/2016 KAYLA MELENDEZ APRN Ot Z79.899 OTHER HALF-WAY (CURRENT) DRUG THERAPY 03/04/2016 KAYLA MELENDEZ APRN Ot Z90.11 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 03/05/2016 KAYLA MELENDEZ APRN Ot C50.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 03/05/2016 KAYLA MELENDEZ APRN Ot F17.210 NICOTINE DEPENDENCE, CIGARETTES, UNCOMPL 03/05/2016 KAYLA MELENDEZ APRN Ot I10 ESSENTIAL (PRIMARY) HYPERTENSION 03/05/2016 KAYLA MELENDEZ APRN Ot J44.9 CHRONIC OBSTRUCTIVE PULMONARY DISEASE, U 03/05/2016 KAYLA MELENDEZ APRN Ot N61.0 MASTITIS WITHOUT ABSCESS 03/05/2016 KAYLA MELENDEZ APRN Ot Z79.899 OTHER POULTRY DEBEAKER (CURRENT) DRUG THERAPY 03/05/2016 KAYLA MELENDEZ APRN Ot Z90.11 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 03/07/2016 ADE FOWLER Ot Z51.81 ENCOUNTER FOR THERAPEUTIC DRUG LEVEL MON 03/07/2016 ADE FOWLER Ot Z79.899 OTHER POULTRY DEBEAKER (CURRENT) DRUG THERAPY 03/18/2016 ADE FOWLER Ot Z51.81 ENCOUNTER FOR THERAPEUTIC DRUG LEVEL MON 03/18/2016 ADE FOWLER Ot Z79.899 OTHER HALF-WAY (CURRENT) DRUG THERAPY 04/19/2016 DARÍO BURROWS YARD HOSTLER Ot 784.2 SWELLING IN HEAD NECK 04/19/2016 SHERRY ROGEL MD (DDU) Ot Z02.71 ENCOUNTER FOR DISABILITY DETERMINATION 04/19/2016 DARÍO BURROWS YARD HOSTLER Ot N64.4 MASTODYNIA 04/19/2016 DARÍO BURROWS YARD HOSTLER Ot N63 UNSPECIFIED LUMP IN BREAST 04/19/2016 DARÍO BURROWS YARD HOSTLER Ot R92.8 OTH ABN AND INCONCLUSIVE FINDINGS ON DX 04/19/2016 CEE ALSTON MD Ot C50.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 04/19/2016 CEE ALSTON MD Ot Z51.81 ENCOUNTER FOR THERAPEUTIC DRUG LEVEL MON 04/19/2016 CEE ALSTON MD Ot Z79.899 OTHER POULTRY DEBEAKER (CURRENT) DRUG THERAPY 04/19/2016 CEE ALSTON MD, Ot 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 04/19/2016 CEE ALSTON MD Ot R92.8 OTH ABN AND INCONCLUSIVE FINDINGS ON DX 04/19/2016 SANDRA TANG Ot 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 04/19/2016 SANDRA TANG MIXER MACHINE FEEDER Ot E66.9 OBESITY, UNSPECIFIED 04/19/2016 SANDRA TANGP Ot E78.5 HYPERLIPIDEMIA, UNSPECIFIED 04/19/2016 SANDRA TANG MIXER MACHINE FEEDER Ot F17.210 NICOTINE DEPENDENCE, CIGARETTES, UNCOMPL 04/19/2016 SANDRA TANG MIXER MACHINE FEEDER Ot F31.9 BIPOLAR DISORDER, UNSPECIFIED 04/19/2016 SANDRA TANG MIXER MACHINE FEEDER Ot I10 ESSENTIAL (PRIMARY) HYPERTENSION 04/19/2016 SANDRA TANGP Ot J44.9 CHRONIC OBSTRUCTIVE PULMONARY DISEASE, U 04/19/2016 SANDRA TANG MIXER MACHINE FEEDER Ot Z17.1 ESTROGEN RECEPTOR NEGATIVE STATUS [ER-] 04/19/2016 SANDRA TANGP Ot Z68.35 BODY MASS INDEX (BMI) 35.0-35.9, ADULT 04/19/2016 SANDRA TANG MIXER MACHINE FEEDER Ot Z79.899 OTHER HALF-WAY (CURRENT) DRUG THERAPY 04/19/2016 CEE ALSTON MD Ot 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 04/19/2016 CEE ALSTON MD Ot Z51.81 ENCOUNTER FOR THERAPEUTIC DRUG LEVEL MON 04/19/2016 CEE ALSTON MD Ot Z79.899 OTHER HALF-WAY (CURRENT) DRUG THERAPY 04/19/2016 CEE ALSTON MD Ot 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 04/19/2016 MARIA LUZ MURRAY, CAM Jara Ot C50.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 04/19/2016 CAM BRAGA MD Ot Z01.818 ENCOUNTER FOR OTHER PREPROCEDURAL EXAMIN 04/19/2016 CEE ALSTON MD Ot 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 04/19/2016 CEE ALSTON MD Ot Z51.81 ENCOUNTER FOR THERAPEUTIC DRUG LEVEL MON 04/19/2016 CEE ALSTON MD Ot Z79.899 OTHER HALF-WAY (CURRENT) DRUG THERAPY 04/19/2016 SANDRA TANG Ot 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 04/19/2016 SANDRA TANG Ot Z79.899 OTHER POULTRY DEBEAKER (CURRENT) DRUG THERAPY 04/19/2016 CEE ALSTON MD Ot 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 04/19/2016 CEE ALSTON MD Ot Z51.81 ENCOUNTER FOR THERAPEUTIC DRUG LEVEL MON Procedures Results Test Result Range Capillary blood glucose measurement by glucometer (mass/volume) - 02/16/16 11: 54 Capillary blood glucose measurement by glucometer (mass/volume) 91 mg/dL 70-110 Complete blood count (CBC) with automated white blood cell (WBC) differential - 03/01/16 10:26 Blood leukocytes automated count (number/volume) 8.4 10*3/ uL 4.3-11.0 Blood erythrocytes automated count (number/volume) 4.73 10*6 /uL 4.35-5.85 Venous blood hemoglobin measurement (mass/volume) 13.7 g/dL 11.5-16.0 Blood hematocrit (volume fraction) 42 % 35-52 Automated erythrocyte mean corpuscular volume 89 [foz_us] 80-99 Automated erythrocyte mean corpuscular hemoglobin (mass per erythrocyte) 29 pg 25-34 Automated erythrocyte mean corpuscular hemoglobin concentration measurement ( mass/volume) 32 g/dL 32-36 Automated erythrocyte distribution width ratio 15.4 % 10.0-14.5 Automated blood platelet count (count/volume) 238 10*3/uL 130-400 Automated blood platelet mean volume measurement 9.9 [foz_us ] 7.4-10.4 Automated blood neutrophils/100 leukocytes 67 % 42-75 Automated blood lymphocytes/100 leukocytes 24 % 12-44 Blood monocytes/100 leukocytes 7 % 0-12 Automated blood eosinophils/100 leukocytes 1 % 0-10 Automated blood basophils/100 leukocytes 1 % 0-10 Blood neutrophils automated count (number/volume) 5.6 10*3 1.8-7.8 Blood lymphocytes automated count (number/volume) 2.0 10*3 1.0-4.0 Blood monocytes automated count (number/volume) 0.6 10*3 0.0-1.0 Automated eosinophil count 0.1 10*3/uL 0.0-0.3 Automated blood basophil count (count/volume) 0.0 10*3/uL 0.0-0.1 Comprehensive metabolic panel - 03/01/16 10:26 Serum or plasma sodium measurement (moles/volume) 137 mmol/ L 135-145 Serum or plasma potassium measurement (moles/volume) 4.7 mmol/L 3.6-5.0 Serum or plasma chloride measurement (moles/volume) 104 mmol /L 98-107 Carbon dioxide 27 mmol/L 21-32 Serum or plasma anion gap determination (moles/volume) 6 mmol/L 5-14 Serum or plasma urea nitrogen measurement (mass/volume) 18 mg/dL 7-18 Serum or plasma creatinine measurement (mass/volume) 0.77 mg /dL 0.60-1.30 Serum or plasma urea nitrogen/creatinine mass ratio 23 NRG Serum or plasma creatinine measurement with calculation of estimated glomerular filtration rate > NRG Serum or plasma glucose measurement (mass/volume) 87 mg/dL 70-105 Serum or plasma calcium measurement (mass/volume) 9.1 mg/dL 8.5-10.1 Serum or plasma total bilirubin measurement (mass/volume) 0.2 mg/dL 0.1-1.0 Serum or plasma alkaline phosphatase measurement (enzymatic activity/volume) 70 U/L 40-136 Serum or plasma aspartate aminotransferase measurement (enzymatic activity/ volume) 16 U/L 5-34 Serum or plasma alanine aminotransferase measurement (enzymatic activity/volume ) 15 U/L 0-55 Serum or plasma protein measurement (mass/volume) 7.1 g/dL 6.4-8.2 Serum or plasma albumin measurement (mass/volume) 4.0 g/dL 3.2-4.5 Lipid 1996 panel - 03/01/16 10:26 Serum or plasma triglyceride measurement (mass/volume) 134 mg/dL <150 Serum or plasma cholesterol measurement (mass/volume) 208 mg /dL < 200 Serum or plasma cholesterol in HDL measurement (mass/volume) 54 mg/dL 40-60 Cholesterol in LDL [mass/volume] in serum or plasma by direct assay 142 mg/dL 1-129 Serum or plasma cholesterol in VLDL measurement (mass/volume) 27 mg/dL 5-40 THYROID STIMULATING HORMONE - 03/01/16 10:26 THYROID STIMULATING HORMONE 2.44 u[iU]/mL 0.35-4.94 Valproic acid - 03/01/16 10:26 Valproic acid 17.9 ug/mL 50.0-100.0 Encounters ACCT No. Visit Date/Time Discharge Status Pt. Type Provider Facility Loc./Unit Complaint [id number] 03/04/2016 10:37:00 2016 11:16:00 DIS Emergency KAYLA MELENDEZ APRN [facility] ER PAIN/SWELLING RIGHT BREAST AREA [id number] 02/16/2016 08:21:00 2016 12:11:00 DIS Emergency EDIL QURESHI [facility] ER ANXIETY, NEEDING PORT FLUSHED [id number] 05/13/2015 08:02:00 2015 00:01:00 DIS Outpatient CEE ALSTON MD [facility] ONC [id number] 04/07/2015 10:59:00 2015 00:01:00 DIS Outpatient CEE ALSTON MD [facility] ONC [id number] 03/19/2015 08:29:00 2015 13:05:00 DIS Outpatient CAM BRAGA MD [facility] RIGHT BREAST CANCER [id number] 01/17/2015 09:38:00 2014 17:00:00 DIS Outpatient CAM BRAGA MD [facility] BREAST CANCER [id number] 01/03/2015 07:05:00 2014 23:59:59 CLS Outpatient DARÍO BURROWS YARD HOSTLER [facility] RAD ABNORMAL MAMMO, BREAST MASS [id number] 01/01/2015 14:58:00 2014 23:59:59 CLS Outpatient DARÍO BURROWS YARD HOSTLER [facility] RAD BREAST PAIN RT BREAST [id number] 12/25/2014 16:08:00 2014 17:23:00 DIS Emergency KAYLA MELENDEZ YARD HOSTLER [facility] ER R BREAST SWELLING/TENDERNESS [id number] 12/19/2014 08:51:00 2014 11:43:00 DIS Emergency REGINALDO ANNA MD [facility] ER COUGH/FEVER [id number] 11/21/2014 11:43:00 2014 13:07:00 DIS Emergency KAYLA MELENDEZ YARD HOSTLER [facility] ER SOA [id number] 11/08/2014 14:38:00 2014 16:53:00 DIS Emergency REGINALDO ANNA MD [facility] ER SOA [id number] 10/28/2014 14:21:00 2014 23:59:59 CLS Outpatient DARÍO BURROWS YARD HOSTLER [facility] RAD LOCALIZE SWELLING MASS OR HEAD 3 ABNORMAL GROWTHS [id number] 10/11/2014 09:35:00 2014 10:09:00 DIS Emergency REGINALDO ANNA MD [facility] ER RASH [id number] 09/27/2014 09:09:00 2014 10:19:00 DIS Emergency KARLIE ZHU MD [facility] ER [id number] 03/01/2016 10:03:00 ACT Outpatient ADE FOWLER [facility] LAB Z79.899 [id number] 07/31/2015 00:09:00 SMOOTH BRAGA MD, EVELINA BROTHERS [facility] ONC [id number] 05/01/2015 11:17:00 ACT Outpatient CEE ALSTON MD [facility] CARD BREAST CANCER [id number] 04/22/2015 11:06:00 PEN Preadmit SANDRA TANG [facility] ONC [id number] 04/07/2015 11:51:00 ACT Outpatient SANDRA TANG [facility] ONC [id number] 04/07/2015 11:17:00 ACT Outpatient CEE ALSTON MD [facility] CARD BREAST CANCER [id number] 03/17/2015 06:12:00 ACT Outpatient CAM BRAGA MD [facility] PREOP RIGHT BREAST CANCER [id number] 02/17/2015 10:18:00 ACT Outpatient CEE ALSTON MD [facility] 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 [id number] 01/24/2015 13:52:00 ACT Outpatient CEE ALSTON MD [facility] CARD ENCOUNTER FOR MONITORING CARDIOTOXIC DRUGS [id number] 01/23/2015 14:18:00 ACT Outpatient SANDRA TANG [facility] ONC [id number] 01/23/2015 09:31:00 ACT Outpatient CEE ALSTON MD [facility] RAD BREAST CA [id number] 01/22/2015 14:57:00 ACT Outpatient CEE ALSTON MD [facility] RAD ABN MAMMO [id number] 01/17/2015 09:42:00 ACT Outpatient CEE ALSTON MD [facility] CARD ENCOUNTER FOR MONITOR CARDIO TOXIC DRUG THERAPY [id number] 01/15/2015 13:52:00 ACT Outpatient SHERRY ROGEL MD (DDU) [facility] RT DDU [id number] 01/15/2015 05:43:00 ACT Outpatient CAM BRAGA MD [facility] PREOP
[~2016-06-24 09:48] MED LIST changes: +HYOS0.1283 SL
[2016-06-28] MEDS ORDERED: TRAM-42 PO (09:53)
[2016-06-28] MEDS ORDERED: CLOT15CR4 TP (09:53)
[2016-06-28] MEDS ORDERED: FLUC150T PO (09:53)
[2016-06-28] MEDS ORDERED: HYDR-3812 PO (09:53)
[2016-06-28] MEDS ORDERED: SULF1TAB35 PO (09:53)
== END 2016-07-19 | disposition home or self-care (01) ==
LOC: ONC 09:48
PROVIDERS: ATTEND Internal Medicine Hematology & Oncology
DX: Z51.0 Encounter for antineoplastic radiation therapy (principal); C50.411 Malignant neoplasm of upper-outer quadrant of right female breast; Z17.0 Estrogen receptor positive status [ER+]; I10 Essential (primary) hypertension; E78.5 Hyperlipidemia, unspecified; J44.9 Chronic obstructive pulmonary disease, unspecified; E66.9 Obesity, unspecified; F31.9 Bipolar disorder, unspecified; F17.210 Nicotine dependence, cigarettes, uncomplicated; Z68.34 Body mass index [BMI] 34.0-34.9, adult; Z79.899 Other long term (current) drug therapy
CPT/HCPCS: 77290; 77295; 77300; 77332; 77334; 77336; 77417; 77470

== ENCOUNTER 2016-06-28 08:21 | Emergency (ER) | payer MEDICAID ==
[~2016-06-28] VITALS: Ht 165.1 cm; Wt 87.1 kg
[2016-06-28] MEDS ORDERED: fentaNYL INJECTION 100 MCG/2 ML AMP IVP ONE (08:45)
[2016-06-28] MEDS ORDERED: KETOROLAC 30 MG/ML VIAL IVP ONE (08:45)
--- NOTE | 2016-06-28 08:55 | ED General ---
General Chief Complaint: General Problems/Pain Stated Complaint: BREAST AREA PAIN/BLISTED/BLEEDING FROM RADIATION Nursing Triage Note: AMB TO ROOM REPORTS HAS FINISHED RADIATION ON TUESDAY FOR ABIOLA MASTECTOMY. C/O PAIN IN RADATION SITE. AREA RED AND SWOLLEN TO R CHEST WALL. Nursing Sepsis Screen: No Definite Risk Source of Information: Patient Exam Limitations: No Limitations History of Present Illness Time Seen by Provider: 08:30 Initial Comments This delightful 50-year-old woman presents to the emergency room with complaints of chest wall pain, right greater than left, after receiving radiation therapy. She has had double mastectomy for breast cancer and completed her final round of radiation therapy last . Since then she has had increasing pain, particularly on the right side. The skin on the lower portion of the mastectomy site is now edematous, hot, and red. She is concerned about infection. She also has a ring shaped skin lesion on the left upper chest that is pruritic. It has been present for a longer period of time. It has the appearance of ringworm. She took her last tramadol pill last night. Her oncologist is Dr. Patel in [place]. Her radiation oncologist is Dr. Leavitt. Her primary care providers Dr. Murray. Allergies and Home Medications Allergies Coded Allergies: No Known Drug Allergies (Unverified , 09/27/14) Home Medications Aripiprazole 15 Mg Tablet, 15 MG PO HS, (Reported) Cefdinir 300 Mg Capsule, 300 MG PO BID, #10 Prescribed by: PHUC PAN on 05/25/16 1056 Clotrimazole/Betamethasone Dip 15 Gm Cream..g., 15 GM TP BID, #1 Prescribed by: YANG HAWLEY on 06/28/16 0953 Divalproex Sodium 500 Mg Tab.er.24h, 2,000 MG PO HS, (Reported) TAKES 4 (500MG) TABLETS Fluconazole 150 Mg Tablet, 150 MG PO UD, #2 Take one now. Repeat in 3 or 4 days. Prescribed by: YANG HAWLEY on 06/28/16 0953 Hydrocodone/Acetaminophen 1 Each Tablet, 1 EACH PO Q4H PRN for BREAKTHROUGH PAIN , #10 Prescribed by: YANG HAWLEY on 06/28/16 0953 Hydrocortisone 453.6 Gm Cream..g., TOP BID PRN for ITCHING, (Reported) Hyoscyamine Sulfate 0.125 Mg Tab.subl, 0.125 MG SL Q4H, #10 Ref 0 Prescribed by: KARLIE ZHU on 05/26/16 1429 Ondansetron 8 Mg Tab.rapdis, 8 MG PO TID PRN for NAUSEA/VOMITING-1ST LINE, ( Reported) Prednisone 10 Mg Tab.ds.pk, 10 MG PO DAILY, #21 Take 6 tabs(60mg)daily,decrease by 1 tab(10MG)daily. Prescribed by: PHUC PAN on 05/25/16 1056 Prochlorperazine Maleate 10 Mg Tablet, 10 MG PO HS, (Reported) Sulfamethoxazole/Trimethoprim 1 Each Tablet, 1 EACH PO BID, #14 Prescribed by: YANG HAWLEY on 06/28/16 0953 Tramadol HCl 50 Mg Tablet, 50 MG PO Q6H PRN for PAIN-MILD, (Reported) Tramadol HCl 50 Mg Tablet, 50 MG PO Q6H PRN for PAIN-MILD TO MODERATE, #20 Prescribed by: YANG HAWLEY on 06/28/16 0953 Constitutional: no symptoms reported EENTM: no symptoms reported Respiratory: no symptoms reported Cardiovascular: no symptoms reported Gastrointestinal: no symptoms reported Genitourinary: no symptoms reported Musculoskeletal: no symptoms reported Skin: see HPI Psychiatric/Neurological: No Symptoms Reported Hematologic/Lymphatic: See HPI Immunological/Allergic: no symptoms reported Past Rrzfnnz-Gibuvt-Dmrbil Hx Patient Social History Alcohol Use: Denies Use Recreational Drug Use: No Smoking Status: Current Everyday Smoker Type Used: Cigarettes Recent Foreign Travel: No Contact w/Someone Who Travel: No Recent Infectious Disease Expo: No Recent Hopitalizations: No Immunizations Up To Date Tetanus Booster (TDap): Unknown Seasonal Allergies Seasonal Allergies: No Surgeries HX Surgeries: Yes (INFUSAPORT) Surgeries: Breast (double mastectomy), Section, Gallbladder, Vascular Surgery Respiratory Hx Respiratory Disorders: Yes Respiratory Disorders: Asthma Cardiovascular Hx Cardiac Disorders: Yes Cardiac Disorders: High Cholesterol, Hypertension Neurological Hx Neurological Disorders: No 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 System Hx 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: No (THROUGH MENOPAUSE) Sexually Transmitted Disease: No HIV/AIDS: No Female 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 Genitourinary Hx Genitourinary Disorders: No Gastrointestinal Hx Gastrointestinal Disorders: Yes Gastrointestinal Disorders: Gastroesophageal Reflux Musculoskeletal Hx Musculoskeletal Disorders: Yes Musculoskeletal Disorders: Rheumatoid Arthritis, Chronic Back Pain Endocrine Hx Endocrine Disorders: No HEENT HX ENT Disorders: Yes (READING GLASSES) Loss of Vision: Denies Hearing Impairment: Denies Cancer Hx Cancer: Yes Cancer: Skin, Breast Psychosocial Hx Psychiatric Problems: Yes Behavioral Health Disorders: Anxiety, Bipolar, Personality Disorder, Depression Integumentary HX Skin/Integumentary Disorder: No Blood Transfusions Hx Blood Disorders: No Adverse Reaction to a Blood Tr: No (HAS HAD BLOOD WITH NO PROBLEM) Family Medical History Significant Family History: No Pertinent Family Hx Family Medial History: Not obtainable due to adoption (ADOPTION) Physical Exam Vital Signs Vital Sign - Last 12Hours 06/28/16 08:35 Temp 98.6 Pulse 100 Resp 18 B/P (MAP) 171/117 O2 Delivery Room Air Capillary Refill : Less Than 3 Seconds General Appearance: WD/WN, Mild Distress HEENT: Normal ENT Inspection Neck: Normal Inspection Respiratory: Lungs Clear, Normal Breath Sounds, No Accessory Muscle Use, No Respiratory Distress Cardiovascular: Regular Rate, Rhythm, No Edema, Normal Peripheral Pulses Gastrointestinal: Normal Bowel Sounds, Non Tender, Soft Extremity: Normal Inspection Neurologic/Psychiatric: Alert, Oriented x3, No Motor/Sensory Deficits, Normal 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 Erythematous areas are tender. The area inferior to the surgical site on the right chest has a peau d' orange appearance. There is some skin crusting as well without drainage. There is a circular erythematous lesion on the left upper chest indicative of ringworm. This area is pruritic) Progress/Results/Core Measures Results/Orders Lab Results Laboratory Tests Test 06/28/16 09:14 Range/Units White Blood Count 5.0 4.3-11.0 10^3/uL Red Blood Count 4.65 4.35-5.85 10^6/uL Hemoglobin 13.7 11.5-16.0 G/DL Hematocrit 42 35-52 % Mean Corpuscular Volume 90 80-99 FL Mean Corpuscular Hemoglobin 30 25-34 PG Mean Corpuscular Hemoglobin Concent 33 32-36 G/DL Red Cell Distribution Width 15.3 H 10.0-14.5 % Platelet Count 178 130-400 10^3/uL Mean Platelet Volume 8.8 7.4-10.4 FL Neutrophils (%) (Auto) 69 42-75 % Lymphocytes (%) (Auto) 19 12-44 % Monocytes (%) (Auto) 11 0-12 % Eosinophils (%) (Auto) 1 0-10 % Basophils (%) (Auto) 0 0-10 % Neutrophils # (Auto) 3.5 1.8-7.8 X 10^3 Lymphocytes # (Auto) 1.0 1.0-4.0 X 10^3 Monocytes # (Auto) 0.5 0.0-1.0 X 10^3 Eosinophils # (Auto) 0.1 0.0-0.3 10^3/uL Basophils # (Auto) 0.0 0.0-0.1 10^3/uL Sodium Level 140 135-145 MMOL/L Potassium Level 3.8 3.6-5.0 MMOL/L Chloride Level 108 H 98-107 MMOL/L Carbon Dioxide Level 24 21-32 MMOL/L Anion Gap 8 5-14 MMOL/L Blood Urea Nitrogen 13 7-18 MG/DL Creatinine 0.60 0.60-1.30 MG/DL Estimat Glomerular Filtration Rate > 60 BUN/Creatinine Ratio 22 Glucose Level 88 70-105 MG/DL Calcium Level 9.1 8.5-10.1 MG/DL C-Reactive Protein High Sensitivity 0.34 0.00-0.50 MG/DL My Orders Orders - YANG ELKINS MD Implanted Port: Ok To Use (06/28/16 08:41) Basic Metabolic Panel (06/28/16 08:41) Cbc With Automated Diff (06/28/16 08:41) Hs C Reactive Protein (06/28/16 08:41) Ketorolac Injection (Toradol Injection) (06/28/16 08:45) Fentanyl Injection (Sublimaze Injection (06/28/16 08:45) Clindamycin Injection (Cleocin Injection (06/28/16 09:00) Medications Given in ED Current Medications Medications Dose Ordered Sig/Nilda Route Start Time Stop Time Status Last Admin Dose Admin Clindamycin Phosphate 900 mg/ Sodium Chloride 56 ml @ 100 mls/hr ONCE ONCE IV 06/28/16 09:00 06/28/16 09:33 DC 5/22/17 09:17 100 MLS/HR Fentanyl Citrate 50 mcg ONCE ONCE IVP 06/28/16 08:45 06/28/16 08:46 DC 06/28/16 09:17 50 MCG Ketorolac Tromethamine 30 mg ONCE ONCE IVP 06/28/16 08:45 06/28/16 08:46 DC 06/28/16 09:17 30 MG Vital Signs/I&O Vital Sign - Last 12Hours 06/28/16 06/28/16 06/28/16 08:35 09:17 09:17 Temp 98.6 98.6 98.6 Pulse 100 Resp 18 B/P (MAP) 171/117 O2 Delivery Room Air Blood Pressure Mean: 135 Progress Note #1: Time: 08:54 Progress Note Patient was seen and examined. Cellulitis of the right chest wall is suspected. Pain is being treated with Toradol and fentanyl. Labs are pending. Ringworm of the left chest wall is also suspected. Progress Note #2: Progress Note Labs were reviewed and fairly unremarkable. Patient was given a dose of clindamycin for additional treatment of suspected cellulitis. Pain was successfully treated with Toradol and fentanyl. Departure Impression Impression: Primary Impression: Cellulitis of chest wall Additional Impressions: postradiation pain Ringworm of body Disposition: 01 HOME, SELF-CARE Condition: Improved Departure-Patient Inst. Decision time for Depature: 09:46 Referrals: ABAD MURRAY MD (PCP/Family) Primary Care Physician Patient Instructions: Cellulitis (Skin Infection), Adult (DC) Add. Discharge Instructions: Follow-up with the cancer Center this week. Complete your antibiotic as prescribed. You may continue using Ultram (tramadol) as prescribed for primary pain management. Take the hydrocodone as prescribed for pain not controlled by Ultram. Take Diflucan with your antibiotics as prescribed to prevent yeast infection. Use the Lotrisone cream on the ring shaped lesion on the left chest. Return to care if symptoms worsen. All discharge instructions reviewed with patient and/or family. Voiced understanding. Scripts Fluconazole (Diflucan) 150 Mg Tablet 150 MG PO UD, #2 TAB Take one now. Repeat in 3 or 4 days. Prov: YANG ELKINS MD 06/28/16 Hydrocodone/Acetaminophen (Hydrocodon -Acetaminophen 5-325) 1 Each Tablet 1 EACH PO Q4H Y for BREAKTHROUGH PAIN, #10 TAB Prov: YANG ELKINS MD 06/28/16 Tramadol HCl (Ultram) 50 Mg Tablet 50 MG PO Q6H Y for PAIN-MILD TO MODERATE, #20 TAB Prov: YANG ELKINS MD 06/28/16 Sulfamethoxazole/Trimethoprim (Bactrim Ds Tablet) 1 Each Tablet 1 EACH PO BID, #14 TAB Prov: YANG ELKINS MD 06/28/16 Clotrimazole/Betamethasone Dip (Lotrisone Cream) 15 Gm Cream..g. 15 GM TP BID, #1 TUBE Prov: YANG ELKINS MD 06/28/16 YANG ELKINS MD June 28, 2016 08:55
[2016-06-28] MEDS ORDERED: CLINDAMYCIN INJECTION 900 MG in NS (IVPB) 50 ML IV ONE (09:00)
[2016-06-28 09:22] LABS: BASOPHILS % (AUTO) 0 % (0-10); EOSINOPHILS # (AUTO) 0.1 10^3/uL (0.0-0.3); EOSINOPHILS % (AUTO) 1 % (0-10); LYMPHOCYTES % (AUTO) 19 % (12-44); MEAN CORPUSCULAR HEMOGLOBIN 30 PG (25-34); MEAN CORPUSCULAR HGB CONC 33 G/DL (32-36); MEAN CORPUSCULAR VOLUME 90 FL (80-99); MEAN PLATELET VOLUME 8.8 FL (7.4-10.4); MONOCYTES # (AUTO) 0.5 X 10^3 (0.0-1.0); MONOCYTES % (AUTO) 11 % (0-12); NEUTROPHILS # (AUTO) 3.5 X 10^3 (1.8-7.8); NEUTROPHILS % (AUTO) 69 % (42-75); PLATELET COUNT 178 10^3/uL (130-400); RED BLOOD COUNT 4.65 10^6/uL (4.35-5.85); RED CELL DISTRIBUTION WIDTH 15.3 % (10.0-14.5)
[2016-06-28 09:38] LABS: ANION GAP 8 MMOL/L (5-14); BLOOD UREA NITROGEN 13 MG/DL (7-18); BUN/CREATININE RATIO 22; CALCIUM 9.1 MG/DL (8.5-10.1); CARBON DIOXIDE 24 MMOL/L (21-32); CHLORIDE 108 MMOL/L (98-107); GFR ESTIMATED > 60; GLUCOSE 88 MG/DL (70-105); POTASSIUM 3.8 MMOL/L (3.6-5.0); SODIUM 140 MMOL/L (135-145); hs C REACTIVE PROTEIN 0.34 MG/DL (0.00-0.50)
[2016-06-28] MEDS ORDERED: FLUC150T PO (09:53)
[2016-06-28] MEDS ORDERED: SULF1TAB35 PO (09:53)
[2016-06-28] MEDS ORDERED: HYDR-3812 PO (09:53)
[2016-06-28] MEDS ORDERED: CLOT15CR4 TP (09:53)
[2016-06-28] MEDS ORDERED: TRAM-42 PO (09:53)
[2016-06-28 10:05] VITALS: BP 158/104
== END 2016-06-28 10:05 | disposition home or self-care (01) ==
LOC: EDUNIT# 08:21 → ER 08:24
DX: L03.313 Cellulitis of chest wall (principal); B35.9 Dermatophytosis, unspecified; C50.911 Malignant neoplasm of unspecified site of right female breast; C50.912 Malignant neoplasm of unspecified site of left female breast; I10 Essential (primary) hypertension; F17.210 Nicotine dependence, cigarettes, uncomplicated; Z90.13 Acquired absence of bilateral breasts and nipples; Z79.899 Other long term (current) drug therapy
CPT/HCPCS: 36415; 80048; 85025; 86141; 96365; 96375

== ENCOUNTER 2016-07-20 15:28 | Outpatient (RCR) | payer MEDICAID ==
[~2016-07-20 15:28] MED LIST changes: +CLOT15CR4 TP; +FLUC150T PO; +HYDR-3812 PO; +SULF1TAB35 PO; +TRAM-42 PO
== END 2016-10-18 | disposition home or self-care (01) ==
LOC: ONC 15:28
PROVIDERS: ATTEND Internal Medicine Hematology & Oncology
DX: C50.411 Malignant neoplasm of upper-outer quadrant of right female breast (principal); Z17.0 Estrogen receptor positive status [ER+]; I10 Essential (primary) hypertension; E78.5 Hyperlipidemia, unspecified; J44.9 Chronic obstructive pulmonary disease, unspecified; E66.9 Obesity, unspecified; F31.9 Bipolar disorder, unspecified; F17.210 Nicotine dependence, cigarettes, uncomplicated; Z68.34 Body mass index [BMI] 34.0-34.9, adult; Z79.899 Other long term (current) drug therapy
CPT/HCPCS: 99213

== ENCOUNTER 2016-12-29 09:48 | Emergency (ER) | payer MEDICAID ==
[~2016-12-29] VITALS: Ht 165.1 cm; Wt 84.8 kg
[2016-12-29] MEDS ORDERED: ARIP5TAB12 PO (10:04)
[2016-12-29] MEDS ORDERED: DESV25TA PO (10:04)
--- NOTE | 2016-12-29 10:06 | ED Headache ---
General Chief Complaint: Head/Cervical Problems Stated Complaint: MIGRAINES,NOSEBLEEDS Nursing Triage Note: ARRIVED VIA AMB TO ROOM 07 WITH COMPLAINTS OF A MIGRAINE AND NOSE BLEED OFF AND ON FOR ABOUT [address] WHO T[facility] HER [facility] AND [facility] TOLD HER TO COME HERE. Nursing Sepsis Screen: No Definite Risk Source: patient History of Present Illness Time seen by provider: 09:58 Initial Comments PT STATES SHE HAS BEEN HAVING HEADACHES AND NOSEBLEEDS OFF AND ON FOR THE LAST 2 WEEKS HEADACHE ISN'T REALLY BAD TODAY--RATES 2-3 /10 TODAY--HAS NOT TAKEN ANYTHING FOR PAIN TODAY --TOOK 1 TYLENOL YESTERDAY MORNING WITH SOME RELIEF. STATES SHE GETS NOSEBLEEDS FAIRLY FREQUENTLY NORMALLY, AND STATES " I WASN'T REALLY WORRIED ABOUT IT" HAS NOT HAD A NOSE BLEED TODAY STATES SHE WAS SEEN AT [facility] 10 DAYS AGO AND WAS DX WITH SINUSITIS, AND STARTED ON AUGMENTIN--STATES SYMPTOMS ARE GETTING BETTER STATES SHE FELT LIKE SHE WAS RUNNING A SLIGHT FEVER AND HAVING CHILLS OFF AND ON --NOT NOW NO NASAL DRAINAGE NO VISION CHANGES NO DIZZINESS NO NECK PAIN / STIFFNESS NO NAUSEA/VOMITING NO PARESTHESIAS OR MOTOR DEFICITS PT STATES SHE "GOOGLED IT" THIS AM AND "GOT FREAKED OUT", BECAUSE SHE HAS HAD BREAST CANCER PT STATES SHE CALLED [facility] AND THEY TOLD HER TO GO TO URGENT CARE, AND CALLED URGENT CARE AND THEY TOLD HER TO COME HERE PCP: [facility], DR. MURRAY Allergies and Home Medications Allergies Coded Allergies: No Known Drug Allergies (Unverified , 09/27/14) Home Medications Aripiprazole 5 Mg Tablet, 5 MG PO, (Reported) Desvenlafaxine Succinate 25 Mg Tab.er.24h, 25 MG PO, (Reported) Dexamethasone 4 Mg Tablet, 8 MG PO QID, #60 Prescribed by: EMILY MURPHY on 12/29/16 1114 Divalproex Sodium 500 Mg Tab.er.24h, 2,000 MG PO HS, (Reported) TAKES 4 (500MG) TABLETS Hydrocodone/Acetaminophen 1 Each Tablet, 1 EACH PO Q4H, #20 Prescribed by: EMILY MURPHY on 12/29/16 1114 Lorazepam 1 Mg Tablet, 1 MG PO Q6H, #30 Prescribed by: EMILY MURPHY on 11/22/17 1114 Constitutional: see HPI Eyes: No Symptoms Reported Ears, Nose, Mouth, Throat: see HPI Respiratory: no symptoms reported Cardiovascular: no symptoms reported Gastrointestinal: no symptoms reported Genitourinary: no symptoms reported Musculoskeletal: no symptoms reported Skin: no symptoms reported Psychiatric/Neurological: See HPI, Headache, Denies Numbness, Denies Paresthesia, Denies Seizure, Denies Weakness Past Ictlgqh-Bmpjml-Kxiqpe Hx Patient Social History Alcohol Use: Denies Use Recreational Drug Use: No Smoking Status: Current Everyday Smoker Type Used: Cigarettes Recent Foreign Travel: No Contact w/Someone Who Travel: No Recent Infectious Disease Expo: No Recent Hopitalizations: No Immunizations Up To Date Tetanus Booster (TDap): Unknown Seasonal Allergies Seasonal Allergies: No Surgeries History of Surgeries: Yes (INFUSAPORT; BILATERAL MASTECTOMY) Surgeries: Breast, Section, Gallbladder, Vascular Surgery Respiratory History of Respiratory Disorde: Yes Respiratory Disorders: Asthma Cardiovascular History of Cardiac Disorders: Yes Cardiac Disorders: High Cholesterol, Hypertension Neurological History of Neurological Disord: No 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 System Hx 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: No (THROUGH MENOPAUSE) Sexually Transmitted Disease: No HIV/AIDS: No Female 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 Genitourinary History of Genitourinary Disor: No Gastrointestinal History of Gastrointestinal Di: Yes Gastrointestinal Disorders: Gastroesophageal Reflux Musculoskeletal History of Musculoskeletal Dis: Yes Musculoskeletal Disorders: Rheumatoid Arthritis, Chronic Back Pain Endocrine History of Endocrine Disorders: No HEENT History of HEENT Disorders: Yes (TEETH REMOVED) Loss of Vision: Denies Hearing Impairment: Denies Cancer History of Cancer: Yes Cancer: Skin, Breast Did You Recieve Any Treatments: Yes (CHEMO, THEN SURGERY, THEN RADIATION-- COMPLETED TREATMENT SUMMER 2016) Type of Tx Receive: Chemotherapy, Radiation, Surgical Intervention Psychosocial History of Psychiatric Problem: Yes Behavioral Health Disorders: Anxiety, Bipolar, Personality Disorder, Depression Integumentary History of Skin or Integumenta: No Blood Transfusions History of Blood Disorders: No Adverse Reaction to a Blood Tr: No (HAS HAD BLOOD WITH NO PROBLEM) Family Medical History Significant Family History: No Pertinent Family Hx Family Medial History: Not obtainable due to adoption (ADOPTION) Physical Exam Vital Signs Vital Sign - Last 12Hours 12/29/16 09:56 Temp 98.0 Pulse 87 Resp 18 B/P (MAP) 138/89 Pulse Ox 97 Capillary Refill : Less Than 3 Seconds General Appearance: WD/WN, no apparent distress HEENT: PERRL/EOMI, normal ENT inspection, TMs normal, pharynx normal, other ( EDENTULOUS) Neck: non-tender, full range of motion, supple, normal inspection Cardiovascular: regular rate, rhythm, no murmur Respiratory: normal breath sounds, no respiratory distress Gastrointestinal: soft Back: normal inspection Extremities: normal inspection, no pedal edema, normal capillary refill Psychiatric: alert, oriented x 3 Crainal Nerves: normal hearing, normal speech, PERRL Coordination/Gait: normal gait Motor/Sensory: no motor deficit, no sensory deficit, no pronator drift Skin: normal color, warm/dry Progress/Results/Core Measures Results/Orders My Orders Orders - EMILY MURPHY DO Ct Head Wo (12/29/16 10:05) Dexamethasone Tablet (Decadron Tablet) (12/29/16 11:00) Vital Signs/I&O Vital Sign - Last 12Hours 12/29/16 09:56 Temp 98.0 Pulse 87 Resp 18 B/P (MAP) 138/89 Pulse Ox 97 Blood Pressure Mean: 105 Progress Note : Progress Note PT OBVIOUSLY VERY UPSET ON RECEIVING TEST RESULTS. WANTING SOMETHING FOR HER NERVES. PASTORAL CARE CALLED. Diagnostic Imaging Comments CT HEAD--MULTIPLE MASSES, LIKELY METASTATIC DISEASE, WITH SURROUNDING EDEMA, MILD MIDLINE SHIFT OF 5 MM. ONE LESION IN OCCIPITAL AREA WITH SMALL AREA OF CALCIFICATION VS TINY HEMORRHAGE WITHIN THE MASS--PER DR. VALDEZ ( VERBAL ) AT 1035 Reviewed: Reviewed by Me, Discussed w/Radiologist Departure Communication (Admissions) Progress Notes 1045--CALLED [facility] 1048--SPOKE WITH DR. BANUELOS, HE ADVISES DECADRON 8 MG QID, RADIATION ONCOLOGY/ RADIATION TREATMENT [facility]--TODAY OR TOMORROW, AND HE WILL SEE IN OFFICE IN THE NEXT FEW DAYS ( TOMORROW IS THANKSGIVING ) 1051--SPOKE WITH [facility] [email or web address]], WILL HAVE DR. MEREDITH CALL ME 1055--SPOKE WITH DR. MURRAY, INFORMED HER OF TEST RESULTS. SHE AGREES WITH ATIVAN AND HYDROCODONE FOR ANXIETY AND PAIN RELIEF. SHE WILL SEE IN CLINIC ON TUESDAY, OR VECTOR CONTROL SPECIALIST ON Tuesday--SPOKE WITH DR. MEREDITH--PT TO GO DIRECTLY TO [facility] [[email or web address]] ON DISMISSAL FROM ER. THEY WILL START PROCESS OF RADIATION THERAPY TODAY/DO MAPPING, ETC. AND WILL GIVE FIRST TREATMENT TOMORROW, HE WANTS PT TO HAVE HAD DECADRON FOR APPROXIMATELY 24 HOURS PRIOR TO STARTING RADIATION. PT IS AGREEABLE TO ALL OF THE ABOVE YESI [facility], HERE WITH PT. PT STATES SHE HAS BEEN IN SAFE HOUSE, AND NOW IS STAYING AT [facility] , AND SHE TOOK A BUS HERE. SHE IS CALLING FAMILY TO COME TO HOSPITAL, AND TAKE HER HOME. IF NOT, [facility] MAY POSSIBLY BE ABLE TO TAKE PT HOME. Impression Impression: Primary Impression: Breast cancer metastasized to brain Additional Impression: HEADCHES Disposition: HOME, SELF-CARE Condition: Stable Departure-Patient Inst. Referrals: ABAD MURRAY MD (PCP/Family) Primary Care Physician ANAIS MEREDITH MD Patient Instructions: Brain Metastases, Breast Cancer (DC) Add. Discharge Instructions: GO DIRECTLY TO THE CANCER CENTER, WHEN YOU LEAVE ER--RADIATION ONCOLOGY/ DR. MEREDITH FOLLOW UP WITH DR. BANUELOS NEXT WEEK FOLLOW UP WITH DR. MURRAY NEXT WEEK All discharge instructions reviewed with patient and/or family. Voiced understanding. Scripts Hydrocodone/Acetaminophen (Hydrocodon -Acetaminophen 5-325) 1 Each Tablet 1 EACH PO Q4H, #20 TAB Prov: EMILY MURPHY DO 12/29/16 Lorazepam (Ativan) 1 Mg Tablet 1 MG PO Q6H for Anxiety, #30 TAB Prov: EMILY MURPHY DO 12/29/16 Dexamethasone (Dexamethasone) 4 Mg Tablet 8 MG PO QID, #60 TAB Prov: EMILY MURPHY DO 12/29/16 EMILY MURPHY DO Dec 29, 2016 10:05
--- NOTE | 2016-12-29 10:51 | Diagnostic Imaging Report ---
PROCEDURE: CT head without contrast. TECHNIQUE: Multiple contiguous axial images were obtained through the brain without the use of intravenous contrast. INDICATION: Nosebleed. Headache. History of breast cancer. FINDINGS: There is a mass measuring 4 x 2.7 x 2.5 cm in the right frontal lobe with significant adjacent vasogenic edema. There is midline shift to the left seen anteriorly along the falx interhemispheric fissure region of 5 mm. There is also significant vasogenic edema in the left cerebellar hemisphere with suggestion of a posterior left cerebellar hemisphere mass that has tiny hyperdensities which could relate to calcifications or intratumoral hemorrhage. There is no hydrocephalus. No extra-axial fluid collection. The calvarium, the paranasal sinuses and orbits appear grossly unremarkable. IMPRESSION: There are at least 2 masses in the brain suggestive of metastasis. One is in the right frontal lobe and one in the left cerebellar hemisphere with possible third mass more anteriorly in the left cerebral hemisphere near the vermis. The right frontal mass has significant adjacent vasogenic edema and results in 5 mm midline shift to the left. The findings were discussed with Dr. Horta at time of dictation. Dictated by: Dictated on workstation # [id number]
[2016-12-29] MEDS ORDERED: DEXAMETHASONE 4 MG TAB (DECADRON) PO SCH (11:00)
[2016-12-29] MEDS ORDERED: DEXA4TAB PO (11:14)
[2016-12-29] MEDS ORDERED: HYDR-3812 PO (11:14)
[2016-12-29] MEDS ORDERED: LORA-405 PO (11:14)
[2016-12-29 11:15] VITALS: BP 138/92
--- OUTSIDE RECORDS SUMMARY | 2016-12-30 13:11 | XMS REPORT ---
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 Active 548312864 Problem Malignant neoplasm of right female breast, unspecified site of breast C50.911 Active 842570674 Problem Bipolar disorder, unspecified F31.9 Active 04481036 Problem Seasonal allergic rhinitis, unspecified allergic rhinitis trigger J30.2 Active 470046484 Problem Bipolar 1 disorder, depressed F31.9 Active 56573713 ALLERGIES No Information SOCIAL HISTORY Never Assessed PLAN OF CARE VITAL SIGNS MEDICATIONS Unknown Medications RESULTS No Results PROCEDURES No Known procedures IMMUNIZATIONS No Known Immunizations MEDICAL (GENERAL) HISTORY Type Description Date Medical History bipolar Medical History COPD- PFT 01/2015 Medical History breast cancer- Right - remission since 2014 Medical History Depakote level 01/2015- Surgical History section 1993 Surgical History cholecystectomy Surgical History appendectomy Surgical 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
--- OUTSIDE RECORDS SUMMARY | 2016-12-30 13:11 | XMS REPORT ---
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9 degrees Fahrenheit 2016-03-31 Heart Rate 88 bpm 2016-03-31 Respiratory Rate 20 2016-03-31 BMI 31.77 kg/m2 2016-03-31 Blood pressure systolic 128 mmHg 2016-03-31 Blood pressure diastolic 82 mmHg 2016-03-31 MEDICATIONS Medication Instructions Dosage Frequency Start Date End Date Duration Status PredniSONE 10 mg Orally twice a day 1 tablet 12h Mar, Mar, 05 days Active Promethazine-Codeine 6.25-10 MG/5ML Orally every 6 hrs 5 ml as needed 6h Mar, Active Depakote 250 MG Orally Twice a day 4 tablet 12h Active Cetirizine HCl 10 MG Orally Once a day 1 tablet 24h 10 Mar, 2016 Apr, 30 day(s) Active Prilosec 40 MG Orally Once a day 1 capsule 24h Active Amoxicillin 500 MG Orally every 12 hrs 1 capsule 12h Mar, Mar, Active Abilify 15 MG Orally Once a day 1 tablet 24h Oct, Active RESULTS No Results PROCEDURES No Known procedures [...] History surgeries Hospitalization History Fever of unknown origin-[facility] 05/24/16
--- OUTSIDE RECORDS SUMMARY | 2016-12-30 13:13 | XMS REPORT ---
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 Unknown Non Drug Allergy Feb, Unknown SOCIAL HISTORY No smoking Hx information available PLAN OF CARE Activity Details Follow Up 4 Weeks - est care Reason: VITAL SIGNS Height 65.5 in 2016-02-17 Weight 181.7 lbs 2016-02-17 Temperature 98.2 degrees Fahrenheit 2016-02-17 Heart Rate 82 bpm 2016-02-17 Respiratory Rate 20 2016-02-17 Oximetry 98 % 2016-02-17 BMI 29.77 kg/m2 2016-02-17 Blood pressure systolic 128 mmHg 2016-02-17 Blood pressure diastolic 84 mmHg 2016-02-17 MEDICATIONS Medication Instructions Dosage Frequency Start Date End Date Duration Status Depakote 250 MG Orally Twice a day 4 tablet 12h Active Abilify 15 MG Orally Once a day 1 tablet 24h Oct, Active RESULTS No Results PROCEDURES Procedure Date Ordered Related Diagnosis Body Site MEASURE BLOOD OXYGEN LEVEL Feb 17, 2016 Office Visit, Est Pt., Level 4 Feb 17, 2016 IMMUNIZATIONS No Known Immunizations
--- OUTSIDE RECORDS SUMMARY | 2016-12-30 13:13 | XMS REPORT ---
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 Active 999824584 Problem Malignant neoplasm of right female breast, unspecified site of breast C50.911 Active 498067790 Problem Bipolar disorder, unspecified F31.9 Active 26916856 Problem Seasonal allergic rhinitis, unspecified allergic rhinitis trigger J30.2 Active 094943121 Problem Bipolar 1 disorder, depressed F31.9 Active 21625913 ALLERGIES No Known Allergies SOCIAL HISTORY Never Assessed PLAN OF CARE Activity Details Follow Up prn Reason: VITAL SIGNS Height 65.5 in 2016-03-30 Weight 192.5 lbs 2016-03-30 Temperature 98.0 degrees Fahrenheit 2016-03-30 Heart Rate 100 bpm 2016-03-30 Respiratory Rate 18 2016-03-30 Oximetry 98 % 2016-03-30 BMI 31.54 kg/m2 2016-03-30 Blood pressure systolic 144 mmHg 2016-03-30 Blood pressure diastolic 82 mmHg 2016-03-30 MEDICATIONS Medication Instructions Dosage Frequency Start Date End Date Duration Status PredniSONE 10 mg Orally twice a day 1 tablet 12h Mar, Mar, 05 days Active Cetirizine HCl 10 MG Orally Once a day 1 tablet 24h Mar, Apr, 30 day(s) Active Depakote 250 MG Orally Twice a day 4 tablet 12h Active Promethazine-Codeine 6.25-10 MG/5ML Orally every 6 hrs 5 ml as needed 6h Mar, Active Abilify 15 MG Orally Once a day 1 tablet 24h Oct, Active Prilosec 40 MG Orally Once a day 1 capsule 24h Active Amoxicillin 500 MG Orally every 12 hrs 1 capsule 12h 14 Mar, 2016 Mar, Active RESULTS No Results PROCEDURES Procedure Date Ordered Result Body Site MEASURE BLOOD OXYGEN LEVEL Mar 30, 2016 IMMUNIZATIONS No Known Immunizations MEDICAL (GENERAL) HISTORY Type Description Date Medical History bipolar Medical History COPD- PFT 01/2015 Medical History breast cancer- Right - remission since 2014 Medical History Depakote level 01/2015- 93 Surgical History section 1993 Surgical History cholecystectomy Surgical History appendectomy 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
--- OUTSIDE RECORDS SUMMARY | 2016-12-30 13:13 | XMS REPORT ---
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 Active 195356384 Problem Malignant neoplasm of right female breast, unspecified site of breast C50.911 Active 365966292 Problem Bipolar disorder, unspecified F31.9 Active 75727909 Problem Seasonal allergic rhinitis, unspecified allergic rhinitis trigger J30.2 Active 151045136 Problem Bipolar 1 disorder, depressed F31.9 Active 24434820 ALLERGIES No Known Allergies SOCIAL HISTORY Never Assessed PLAN OF CARE Activity Details Follow Up prn Reason: VITAL SIGNS Height 65.5 in 2016-03-19 Weight 194.2 lbs 2016-03-19 Temperature 97.9 degrees Fahrenheit 2016-03-19 Heart Rate 88 bpm 2016-03-19 Respiratory Rate 22 2016-03-19 BMI 31.82 kg/m2 2016-03-19 Blood pressure systolic 150 mmHg 2016-03-19 Blood pressure diastolic 98 mmHg 2016-03-19 MEDICATIONS Medication Instructions Dosage Frequency Start Date End Date Duration Status Prilosec 40 MG Orally Once a day 1 capsule 24h Active Promethazine VC/Codeine 6.25-5-10 MG/5ML Orally every 6 hrs 5 ml as needed 6h Mar, Mar, 3 days Active Cetirizine HCl 10 MG Orally [...] History surgeries Hospitalization History Fever of unknown origin-[facility] 05/24/16
--- OUTSIDE RECORDS SUMMARY | 2016-12-30 13:13 | XMS REPORT ---
Author Author FIONA DIAZ Organization 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 Active 596861060 Problem Malignant neoplasm of right female breast, unspecified site of breast C50.911 Active 621672372 Problem Bipolar disorder, unspecified F31.9 Active 24148467 Problem Seasonal allergic rhinitis, unspecified allergic rhinitis trigger J30.2 Active 386257557 Problem Bipolar 1 disorder, depressed F31.9 Active 59587583 ALLERGIES No Known Allergies SOCIAL HISTORY Never Assessed PLAN OF CARE Activity Details Follow Up prn Reason: VITAL SIGNS Height 65.5 in 2016-03-23 Weight 196.8 lbs 2016-03-23 Temperature 98.0 degrees Fahrenheit 2016-03-23 Heart Rate 84 bpm 2016-03-23 Respiratory Rate 18 2016-03-23 BMI 32.25 kg/m2 2016-03-23 Blood pressure systolic 132 mmHg 2016-03-23 Blood pressure diastolic 80 mmHg 2016-03-23 MEDICATIONS Medication Instructions Dosage Frequency Start Date End Date Duration Status Depakote 250 MG Orally Twice a day 4 tablet 12h Active Amoxicillin 500 MG Orally every 12 hrs 1 capsule 12h Mar, Mar, 10 day(s) Active Abilify 15 MG Orally Once a day 1 tablet 24h Oct, Active Prilosec 40 MG Orally Once a day 1 capsule 24h Active Cetirizine HCl 10 MG Orally Once a day 1 tablet 24h Mar, Apr, 30 day(s) Active RESULTS No Results PROCEDURES No Known [...] History surgeries Hospitalization History Fever of unknown origin-[facility] 05/24/16
--- OUTSIDE RECORDS SUMMARY | 2016-12-30 13:14 | XMS REPORT ---
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
== END 2016-12-29 11:15 | disposition home or self-care (01) ==
LOC: EDUNIT# 09:48 → ER 09:50
DX: C50.911 Malignant neoplasm of unspecified site of right female breast (principal); C50.912 Malignant neoplasm of unspecified site of left female breast; C79.31 Secondary malignant neoplasm of brain; J45.909 Unspecified asthma, uncomplicated; E78.00 Pure hypercholesterolemia, unspecified; I10 Essential (primary) hypertension; K21.9 Gastro-esophageal reflux disease without esophagitis; M06.9 Rheumatoid arthritis, unspecified; F41.9 Anxiety disorder, unspecified; F31.9 Bipolar disorder, unspecified; F17.210 Nicotine dependence, cigarettes, uncomplicated; Z87.59 Personal history of other complications of pregnancy, childbirth and the puerperium; Z90.13 Acquired absence of bilateral breasts and nipples; Z85.828 Personal history of other malignant neoplasm of skin
CPT/HCPCS: 70450; 99283

== ENCOUNTER 2017-01-07 14:46 | Emergency (ER) | payer MEDICAID ==
[~2017-01-07] VITALS: Ht 165.1 cm; Wt 89.8 kg
[~2017-01-07 14:46] MED LIST changes: +ARIP5TAB12 PO; +DESV25TA PO; +DEXA4TAB PO; +LORA-405 PO
[2017-01-07] MEDS ORDERED: PROMETHAZINE INJ 25 MG/ML (PHENERGAN) AMP IVP ONE (15:00)
[2017-01-07] MEDS ORDERED: DEXAMETHASONE PF 10 MG/ML (DECADRON) VIAL IV ONE (15:00)
--- NOTE | 2017-01-07 15:02 | ED GI ---
General Stated Complaint: N/V Source of Information: Patient Exam Limitations: No Limitations History of Present Illness Time Seen By Provider: 15:00 Initial Comments To ER with reports of nausea and vomiting. She also reports some epigastric discomfort. Has a history of breast cancer. 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 Patient received radiation today. Shortly after that she became nauseous. Cancer doctor did call him nausea medication for her but she states she did not feel like going to get it. She arrives by EMS. She received 4 mg of Zofran and out of the hospital with some, albeit mild, improvement. Timing/Duration: 1-2 Days Severity/Quality: Moderate Radiation: Epigastric Activities at Onset: None Allergies and Home Medications Allergies Coded Allergies: No Known Drug Allergies (Unverified , 09/27/14) Home Medications Aripiprazole 5 Mg Tablet, 5 MG PO, (Reported) Desvenlafaxine Succinate 25 Mg Tab.er.24h, 25 MG PO, (Reported) Dexamethasone 4 Mg Tablet, 8 MG PO QID, #60 Prescribed by: EMILY MURPHY on 12/29/16 1114 Divalproex Sodium 500 Mg Tab.er.24h, 2,000 MG PO HS, (Reported) TAKES 4 (500MG) TABLETS Hydrocodone/Acetaminophen 1 Each Tablet, 1 EACH PO Q4H, #20 Prescribed by: EMILY MURPHY on 12/29/16 1114 Lorazepam 1 Mg Tablet, 1 MG PO Q6H, #30 Prescribed by: EMILY MURPHY on 12/29/16 1114 Ondansetron 8 Mg Tab.rapdis, (Reported) Prochlorperazine Maleate 10 Mg Tablet, (Reported) Review of Systems Constitutional: see HPI EENTM: No Symptoms Reported Respiratory: No Symptoms Reported Cardiovascular: No Symptoms Reported Gastrointestinal: See HPI, Abdominal Pain, Nausea, Vomiting Genitourinary: No Symptoms Reported Musculoskeletal: no symptoms reported Skin: no symptoms reported Psychiatric/Neurological: No Symptoms Reported Endocrine: No Symptoms Reported Past Jebizbb-Bfptfm-Pvhgti Hx Patient Social History Type Used: Cigarettes Recent Hopitalizations: No Immunizations Up To Date Tetanus Booster (TDap): Unknown Seasonal Allergies Seasonal Allergies: No Surgeries History of Surgeries: Yes (INFUSAPORT; BILATERAL MASTECTOMY) Surgeries: Breast, Section, Gallbladder, Vascular Surgery Respiratory History of Respiratory Disorde: Yes Respiratory Disorders: Asthma Cardiovascular History of Cardiac Disorders: Yes Cardiac Disorders: High Cholesterol, Hypertension Neurological History of Neurological Disord: No 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 System Hx 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: No (THROUGH MENOPAUSE) Sexually Transmitted Disease: No HIV/AIDS: No Female 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 MID[employer] SCHOOL PRINCIPAL History: Menopausal Genitourinary History of Genitourinary Disor: No Gastrointestinal History of Gastrointestinal Di: Yes Gastrointestinal Disorders: Gastroesophageal Reflux Musculoskeletal History of Musculoskeletal Dis: Yes Musculoskeletal Disorders: Rheumatoid Arthritis, Chronic Back Pain Endocrine History of Endocrine Disorders: No HEENT History of HEENT Disorders: Yes (TEETH REMOVED) Loss of Vision: Denies Hearing Impairment: Denies Cancer History of Cancer: Yes Cancer: Skin, Breast Did You Recieve Any Treatments: Yes Type of Tx Receive: Chemotherapy, Radiation, Surgical Intervention Psychosocial History of Psychiatric Problem: Yes Behavioral Health Disorders: Anxiety, Bipolar, Personality Disorder, Depression Integumentary History of Skin or Integumenta: No Blood Transfusions History of Blood Disorders: No Adverse Reaction to a Blood Tr: No (HAS HAD BLOOD WITH NO PROBLEM) Family Medical History Significant Family History: No Pertinent Family Hx Family Medial History: Not obtainable due to adoption (ADOPTION) Physical Exam Vital Signs VS - Last 72 Hours, by Label 01/07/17 14:46 Temp 98.6 Pulse 86 Resp 18 B/P (MAP) 127/82 (97) Pulse Ox 93 Capillary Refill : General Appearance: WD/WN, no apparent distress HEENT: PERRL/EOMI, normal ENT inspection Neck: non-tender, full range of motion Respiratory: no respiratory distress, no accessory muscle use Cardiovascular: regular rate, rhythm, no murmur Gastrointestinal: normal bowel sounds, non tender, soft Extremities: normal range of motion, non-tender, normal inspection Neurologic/Psychiatric: alert, normal mood/affect, oriented x 3 Skin: normal color, warm/dry Progress/Results/Core Measures Results/Orders Lab Results Laboratory Tests Test 01/07/17 14:53 01/07/17 17:15 Range/Units White Blood Count 25.5 H 4.3-11.0 10^3/uL Red Blood Count 5.18 4.35-5.85 10^6/uL Hemoglobin 15.5 11.5-16.0 G/DL Hematocrit 46 35-52 % Mean Corpuscular Volume 88 80-99 FL Mean Corpuscular Hemoglobin 30 25-34 PG Mean Corpuscular Hemoglobin Concent 34 32-36 G/DL Red Cell Distribution Width 14.1 10.0-14.5 % Platelet Count 131 130-400 10^3/uL Mean Platelet Volume 10.2 7.4-10.4 FL Neutrophils (%) (Auto) 95 H 42-75 % Lymphocytes (%) (Auto) 2 L 12-44 % Monocytes (%) (Auto) 3 0-12 % Eosinophils (%) (Auto) 0 0-10 % Basophils (%) (Auto) 0 0-10 % Neutrophils # (Auto) 24.2 H 1.8-7.8 X 10^3 Lymphocytes # (Auto) 0.4 L 1.0-4.0 X 10^3 Monocytes # (Auto) 0.8 0.0-1.0 X 10^3 Eosinophils # (Auto) 0.0 0.0-0.3 10^3/uL Basophils # (Auto) 0.1 0.0-0.1 10^3/uL Neutrophils % (Manual) 90 % Lymphocytes % (Manual) 2 % Monocytes % (Manual) 4 % Eosinophils % (Manual) 0 % Basophils % (Manual) 0 % Band Neutrophils 4 % Anisocytosis Blood Morphology Comment NORMAL Sodium Level 133 L 135-145 MMOL/L Potassium Level 4.3 3.6-5.0 MMOL/L Chloride Level 94 L 98-107 MMOL/L Carbon Dioxide Level 29 21-32 MMOL/L Anion Gap 10 5-14 MMOL/L Blood Urea Nitrogen 29 H 7-18 MG/DL Creatinine 0.67 0.60-1.30 MG/DL Estimat Glomerular Filtration Rate > 60 BUN/Creatinine Ratio 43 Glucose Level 162 H 70-105 MG/DL Calcium Level 8.5 8.5-10.1 MG/DL Total Bilirubin 0.4 0.1-1.0 MG/DL Aspartate Amino Transf (AST/SGOT) 12 5-34 U/L Alanine Aminotransferase (ALT/SGPT) 36 0-55 U/L Alkaline Phosphatase 64 40-136 U/L Total Protein 6.7 6.4-8.2 GM/DL Albumin 3.7 3.2-4.5 GM/DL Lipase 58 8-78 U/L Urine Color YELLOW Urine Clarity CLEAR Urine pH 7 5-9 Urine Specific [place] 1.010 L 1.016-1.022 Urine Protein NEGATIVE NEGATIVE Urine Glucose (UA) NEGATIVE NEGATIVE Urine Ketones NEGATIVE NEGATIVE Urine Nitrite NEGATIVE NEGATIVE Urine Bilirubin NEGATIVE NEGATIVE Urine Urobilinogen NORMAL NORMAL MG/DL Urine Leukocyte Esterase 2+ H NEGATIVE Urine RBC (Auto) NEGATIVE NEGATIVE Urine RBC RARE /HPF Urine WBC RARE /HPF Urine Squamous Epithelial Cells 2-5 /HPF Urine Crystals NONE /LPF Urine Bacteria NEGATIVE /HPF Urine Casts NONE /LPF Urine Mucus NEGATIVE /LPF Urine Culture Indicated NO My Orders Orders - KAYLA MELENDEZ APRN Cbc With Automated Diff (01/07/17 14:58) Comprehensive Metabolic Panel (01/07/17 14:58) Lipase (01/07/17 14:58) Ua Culture If Indicated (01/07/17 14:58) Saline Lock/Iv-Start (01/07/17 14:58) Dexamethasone Pf Injection (Decadron Pf (01/07/17 15:00) Promethazine Injection (Phenergan Injec (01/07/17 15:00) Manual Differential (01/07/17 14:53) Dexamethasone Injection (Decadron Inject (01/07/17 15:15) Ct Abdomen/Pelvis W (01/07/17 15:08) Fentanyl Injection (Sublimaze Injection (01/07/17 16:00) Iohexol Injection (Omnipaque 350 Mg/Ml 1 (01/07/17 16:15) Sodium Chloride Flush (Catheter Flush Sy (01/07/17 16:15) Pharmacy Communication (Pharmacy Communi (01/07/17 16:10) Antacid Suspension (Mylanta Suspension (01/07/17 17:15) Lidocaine 2% Viscous 15 Ml (Xylocaine Vi (01/07/17 17:15) Ondansetron Injection (Zofran Injectio (01/07/17 17:30) Medications Given in ED Current Medications Medications Dose Ordered Sig/Nilda Route Start Time Stop Time Status Last Admin Dose Admin Al Hydrox/Mg Hydrox/Simethicone 30 ml ONCE ONCE PO 01/07/17 17:15 01/07/17 17:16 DC 01/07/17 17:21 30 ML Dexamethasone Sodium Phosphate 10 mg ONCE ONCE IV 01/07/17 15:15 01/07/17 15:16 DC 01/07/17 15:17 10 MG Fentanyl Citrate 50 mcg ONCE ONCE IVP 121/17 16:00 01/07/17 16:01 DC 01/07/17 15:57 50 MCG Iohexol 100 ml ONCE ONCE IV 01/07/17 16:15 01/07/17 16:19 DC 01/07/17 16:17 100 ML Lidocaine HCl 15 ml ONCE ONCE PO 01/07/17 17:15 01/07/17 17:16 DC 01/07/17 17:21 15 ML Ondansetron HCl 8 mg ONCE ONCE IVP 01/07/17 17:30 01/07/17 17:31 DC 01/07/17 17:41 8 MG Promethazine HCl 25 mg ONCE ONCE IVP 01/07/17 15:00 01/07/17 15:01 DC 01/07/17 15:15 25 MG Sodium Chloride 10 ml NEEDED PRN IV 01/07/17 16:15 01/07/17 16:17 10 ML Vital Signs/I&O Vital Sign - Last 12Hours 01/07/17 14:46 Temp 98.6 Pulse 86 Resp 18 B/P (MAP) 127/82 (97) Pulse Ox 93 Departure Communication (Admissions) Family Conversation [id number] discussed the case with Dr. Messer. We will discharge the patient home. Leukocytosis likely secondary to vomiting and Decadron. Progress Notes NAME: CLARITA RODRIGUEZ [facility] REC#: [id number] PT STATUS: REG ER : 1965 PHYSICIAN: KAYLA MELENDEZ PROJECT MANAGEMENT SPECIALIST ADMIT DATE: 01/07/17/ER Signed Date of Exam:01/07/17 CT ABDOMEN/PELVIS W INDICATION: Abdominal pain and vomiting, elevated white count, history of breast cancer. TECHNIQUE: CT abdomen and pelvis obtained with IV contrast bolus. FINDINGS: Visualized portions of the lung bases are clear. There is no pleural fluid. There is no free intraperitoneal air. The liver shows no focal lesion. Patient has had prior cholecystectomy. The spleen, adrenals, and pancreas are normal in appearance. Kidneys bilaterally are unremarkable. There is no retroperitoneal mass or adenopathy. There is no pelvic mass or free fluid. Visualized bowel loops demonstrate diffuse mild thickening of small bowel loops which may represent enteritis. There is no overt obstruction. The colonic loops appear unremarkable. IMPRESSION: Diffuse mild thickening throughout the small bowel, which may represent enteritis. There is no overt obstruction. Colon appears unremarkable. There is no overt abscess or mass lesion. Dictated by: Dictated on workstation # [id number] Dict: 01/07/172 Trans: 01/07/17 1658 [id number] Interpreted by: GIANNA REID MD Electronically signed by: GIANNA REID MD 01/07/17 1658 Impression Impression: Primary Impression: Nausea and vomiting Disposition: 01 HOME, SELF-CARE Condition: Stable Departure-Patient Inst. Decision time for Depature: 17:08 Referrals: ABAD MURRAY MD (PCP/Family) Primary Care Physician Patient Instructions: Nausea and Vomiting, Adult Add. Discharge Instructions: 1. Return to ER for any concerns or worsening symptoms 2. Follow-up with your doctor next week 3. KAYLA MELENDEZ APRN Jan 07, 2017 15:02
[2017-01-07 15:06] LABS: BASOPHILS # (AUTO) 0.1 10^3/uL (0.0-0.1); BASOPHILS % (AUTO) 0 % (0-10); EOSINOPHILS % (AUTO) 0 % (0-10); LYMPHOCYTES # (AUTO) 0.4 X 10^3 (1.0-4.0); LYMPHOCYTES % (AUTO) 2 % (12-44); MEAN CORPUSCULAR HEMOGLOBIN 30 PG (25-34); MEAN CORPUSCULAR HGB CONC 34 G/DL (32-36); MEAN CORPUSCULAR VOLUME 88 FL (80-99); MEAN PLATELET VOLUME 10.2 FL (7.4-10.4); MONOCYTES # (AUTO) 0.8 X 10^3 (0.0-1.0); MONOCYTES % (AUTO) 3 % (0-12); NEUTROPHILS # (AUTO) 24.2 X 10^3 (1.8-7.8); NEUTROPHILS % (AUTO) 95 % (42-75); PLATELET COUNT 131 10^3/uL (130-400); RED BLOOD COUNT 5.18 10^6/uL (4.35-5.85); RED CELL DISTRIBUTION WIDTH 14.1 % (10.0-14.5); WHITE BLOOD COUNT 25.5 10^3/uL (4.3-11.0)
[2017-01-07] MEDS ORDERED: PROC10TA (15:11)
[2017-01-07] MEDS ORDERED: ONDA8TAB13 (15:11)
[2017-01-07] MEDS ORDERED: DEXAMETHASONE 10 MG/ML (DECADRON) 1 ML VIAL IV ONE (15:15)
[2017-01-07 15:24] LABS: BAND NEUTROPHILS 4 %; BASOPHILS % (MANUAL) 0 %; EOSINOPHILS % (MANUAL) 0 %; LYMPHOCYTES % (MANUAL) 2 %; NEUTROPHILS % (MANUAL) 90 %
[2017-01-07 15:31] LABS: ALANINE AMINOTRANSFERASE 36 U/L (0-55); ALBUMIN 3.7 GM/DL (3.2-4.5); ANION GAP 10 MMOL/L (5-14); ASPARTATE AMINO TRANSFERASE 12 U/L (5-34); BILIRUBIN,TOTAL 0.4 MG/DL (0.1-1.0); BLOOD UREA NITROGEN 29 MG/DL (7-18); BUN/CREATININE RATIO 43; CALCIUM 8.5 MG/DL (8.5-10.1); CARBON DIOXIDE 29 MMOL/L (21-32); CHLORIDE 94 MMOL/L (98-107); CREATININE SERUM 0.67 MG/DL (0.60-1.30); GFR ESTIMATED > 60; GLUCOSE 162 MG/DL (70-105); LIPASE 58 U/L (8-78); POTASSIUM 4.3 MMOL/L (3.6-5.0); SODIUM 133 MMOL/L (135-145); TOTAL PROTEIN 6.7 GM/DL (6.4-8.2)
[2017-01-07] MEDS ORDERED: fentaNYL INJECTION 100 MCG/2 ML AMP IVP ONE (16:00)
[2017-01-07] MEDS ORDERED: CATHETER FLUSH 10 ML SYR IV PRN (16:15)
[2017-01-07] MEDS ORDERED: IOHEXOL 350 MG/ML 100 ML (OMNIPAQUE 350) VIAL IV ONE (16:15)
--- NOTE | 2017-01-07 16:58 | Diagnostic Imaging Report ---
INDICATION: Abdominal pain and vomiting, elevated white count, history of breast cancer. TECHNIQUE: CT abdomen and pelvis obtained with IV contrast bolus. FINDINGS: Visualized portions of the lung bases are clear. There is no pleural fluid. There is no free intraperitoneal air. The liver shows no focal lesion. Patient has had prior cholecystectomy. The spleen, adrenals, and pancreas are normal in appearance. Kidneys bilaterally are unremarkable. There is no retroperitoneal mass or adenopathy. There is no pelvic mass or free fluid. Visualized bowel loops demonstrate diffuse mild thickening of small bowel loops which may represent enteritis. There is no overt obstruction. The colonic loops appear unremarkable. IMPRESSION: Diffuse mild thickening throughout the small bowel, which may represent enteritis. There is no overt obstruction. Colon appears unremarkable. There is no overt abscess or mass lesion. Dictated by: Dictated on workstation # [id number]
[2017-01-07] MEDS ORDERED: LIDOCAINE 2% VISCOUS 15 ML UDC PO ONE (17:15)
[2017-01-07] MEDS ORDERED: ANTACID SUSP 30 ML UDC (MYLANTA) PO ONE (17:15)
[2017-01-07 17:25] LABS: BILIRUBIN,URINE NEGATIVE (NEGATIVE); KETONES,URINE NEGATIVE (NEGATIVE); LEUKOCYTE ESTERASE ,URINE 2+ (NEGATIVE); NITRITE,URINE NEGATIVE (NEGATIVE); PH,URINE 7 (5-9); PROTEIN,URINE NEGATIVE (NEGATIVE); UROBILINOGEN,URINE NORMAL (NORMAL)
[2017-01-07] MEDS ORDERED: ONDANSETRON 4 MG/2 ML (SDV) Z0FRAN IVP ONE (17:30)
[2017-01-07 17:33] LABS: WBC,URINE RARE /HPF
[2017-01-07 18:05] VITALS: BP 129/95
== END 2017-01-07 18:14 | disposition home or self-care (01) ==
LOC: EDUNIT# 14:46 → ER 14:47
DX: R11.2 Nausea with vomiting, unspecified (principal); F41.9 Anxiety disorder, unspecified; F31.9 Bipolar disorder, unspecified; M06.9 Rheumatoid arthritis, unspecified; K21.9 Gastro-esophageal reflux disease without esophagitis; E78.00 Pure hypercholesterolemia, unspecified; I10 Essential (primary) hypertension; J45.909 Unspecified asthma, uncomplicated; Z92.21 Personal history of antineoplastic chemotherapy; Z92.3 Personal history of irradiation; Z87.59 Personal history of other complications of pregnancy, childbirth and the puerperium
CPT/HCPCS: 36415; 74177; 80053; 81000; 83690; 85007; 85027; 99283

== ENCOUNTER 2017-01-12 09:52 | Outpatient (RCR) | payer MEDICAID ==
[~2017-01-12 09:52] MED LIST changes: +ACHD5005 PO; -HYDR-3812 PO; +NAPR-1071 PO; -NAPR500T PO; +ONDA8TAB13; +PROC10TA
[2017-03-27] MEDS ORDERED: ACHD5005 PO (14:11)
== END 2017-03-29 | disposition home or self-care (01) ==
LOC: ONC 09:52
PROVIDERS: ATTEND Internal Medicine Hematology & Oncology
DX: Z51.0 Encounter for antineoplastic radiation therapy (principal); C50.411 Malignant neoplasm of upper-outer quadrant of right female breast; Z17.0 Estrogen receptor positive status [ER+]; I10 Essential (primary) hypertension; E78.5 Hyperlipidemia, unspecified; J44.9 Chronic obstructive pulmonary disease, unspecified; E66.9 Obesity, unspecified; F31.9 Bipolar disorder, unspecified; F17.210 Nicotine dependence, cigarettes, uncomplicated; Z68.34 Body mass index [BMI] 34.0-34.9, adult; Z79.899 Other long term (current) drug therapy
CPT/HCPCS: 77280; 77290; 77295; 77300; 77332; 77334; 77336; 77417; 77470; 99213

== ENCOUNTER 2017-03-27 10:38 | Emergency (ER) | payer MEDICAID ==
[~2017-03-27] VITALS: Ht 165.1 cm; Wt 83.5 kg
--- OUTSIDE RECORDS SUMMARY | 2017-03-27 10:51 | XMS REPORT | Continuity of Care Document ---
Author Author [facility] Organization [facility] Address Unknown Phone Unavailable Allergies Active Description Code Type Severity Reaction Onset Reported/Identified Relationship to Patient Clinical Status Yes No Known Drug Allergies [id number] Drug Allergy Unknown N/A 09/27/2014 Medications There is no data. Problems Date Dx Coded Attending Type Code Diagnosis Diagnosed By 09/27/2014 KARLIE ZHU MD Ot 053.9 HERPES ZOSTER NOS 09/27/2014 KARLIE ZHU MD Ot V68.1 ISSUE REPEAT PRESCRIPT 10/11/2014 REGINALDO ANNA MD Ot 692.6 DERMATITIS DUE TO PLANT 10/11/2014 REGINALDO ANNA MD Ot 782.1 NONSPECIF SKIN ERUPT NEC 11/08/2014 DARÍO BURROWS METEOROLOGIST LIAISON Ot 784.2 11/08/2014 REGINALDO ANNA MD Ot F17.210 NICOTINE DEPENDENCE, CIGARETTES, UNCOMPL 11/08/2014 REGINALDO ANNA MD Ot J44.1 CHRONIC OBSTRUCTIVE PULMONARY DISEASE W 11/08/2014 REGINALDO ANNA MD Ot R06.02 SHORTNESS OF BREATH 11/08/2014 DARÍO BURROWS METEOROLOGIST LIAISON Ot 784.2 11/19/2014 DARÍO BURROWS METEOROLOGIST LIAISON Ot 784.2 11/21/2014 KAYLA MELENDEZ APRN Ot F17.210 NICOTINE DEPENDENCE, CIGARETTES, UNCOMPL 11/21/2014 KAYLA MELENDEZ APRN Ot F41.9 ANXIETY DISORDER, UNSPECIFIED 11/21/2014 KAYLA MELENDEZ APRN Ot J44.1 CHRONIC OBSTRUCTIVE PULMONARY DISEASE W 11/21/2014 KAYLA MELENDEZ APRN Ot R06.02 SHORTNESS OF BREATH 12/19/2014 REGINALDO ANNA MD Ot F17.210 NICOTINE DEPENDENCE, CIGARETTES, UNCOMPL 12/19/2014 REGINALDO ANNA MD Ot J06.9 ACUTE UPPER RESPIRATORY INFECTION, UNSPE 12/19/2014 WILFRIDO MURRAY, REGINALDO Pryor Ot R05 COUGH 12/19/2014 WILFRIDO MURRAY, REGINALDO Pryor Ot R50.9 FEVER, UNSPECIFIED 12/25/2014 KAYLA MELENDEZ METEOROLOGIST LIAISON Ot F17.210 NICOTINE DEPENDENCE, CIGARETTES, UNCOMPL 12/25/2014 KAYLA MELENDEZ METEOROLOGIST LIAISON Ot N64.9 DISORDER OF BREAST, UNSPECIFIED 01/09/2015 DARÍO BURROWS METEOROLOGIST LIAISON Ot N64.4 01/09/2015 DARÍO BURROWS METEOROLOGIST LIAISON Ot N64.4 01/10/2015 STORMY DARÍO You METEOROLOGIST LIAISON Ot N64.4 01/10/2015 ROB BURROWSYARELY You METEOROLOGIST LIAISON Ot N63 01/10/2015 STORMY DARÍO You METEOROLOGIST LIAISON Ot R92.8 01/14/2015 STORMY DARÍO You METEOROLOGIST LIAISON Ot N64.4 01/14/2015 STORMY DARÍO You METEOROLOGIST LIAISON Ot N63 01/14/2015 STORMY DARÍO You METEOROLOGIST LIAISON Ot R92.8 01/17/2015 STORMY DARÍO You METEOROLOGIST LIAISON Ot N64.4 01/17/2015 STORMY DARÍO You METEOROLOGIST LIAISON Ot N63 01/17/2015 STORMY DARÍO You METEOROLOGIST LIAISON Ot R92.8 01/17/2015 MARIA LUZ MURRAY, CAM [...] Ot Z79.899 01/17/2015 MARIA LUZ MURRAY, CAM M Ot C50.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 01/21/2015 MARIA LUZ MURRAY, CAM M Ot C50.919 01/21/2015 MARIA LUZ MURRAY, CAM M Ot Z01.818 01/22/2015 PEBBLES MURRAY, SHERRY You (DDU) Ot Z02.71 01/22/2015 DARÍO BURROWS METEOROLOGIST LIAISON Ot N64.4 01/22/2015 DARÍO BURROWS METEOROLOGIST LIAISON Ot N63 01/22/2015 DARÍO BURROWS METEOROLOGIST LIAISON Ot R92.8 01/22/2015 GAMALIEL MURRAY, CEE K [...] MD (DDU) Ot Z02.71 01/24/2015 DARÍO BURROWS METEOROLOGIST LIAISON Ot N64.4 01/24/2015 DARÍO BURROWS METEOROLOGIST LIAISON Ot N63 01/24/2015 DARÍO BURROWS METEOROLOGIST LIAISON Ot R92.8 01/24/2015 GAMALIEL MURRAY, CEE K [...] K Ot C50.411 01/24/2015 GAMALIEL MURRAY, CEE Pryor Ot Z51.81 01/24/2015 GAMALIEL MURRAY, CEE K Ot Z79.899 01/24/2015 GAMALIEL MURRYA, CEE K Ot R92.8 01/24/2015 KITTY SANDRA S COMPUTER DISCOVERY TEACHER Ot C50.511 01/24/2015 KITTY SANDRA S COMPUTER DISCOVERY TEACHER Ot E66.9 01/24/2015 KITTY SANDRA S COMPUTER DISCOVERY TEACHER Ot E78.5 01/24/2015 KARIN TANGAH S COMPUTER DISCOVERY TEACHER Ot F17.210 01/24/2015 KITTY SANDRA S COMPUTER DISCOVERY TEACHER Ot F31.9 01/24/2015 KARIN TANGSINGH S COMPUTER DISCOVERY TEACHER Ot I10 01/24/2015 KARIN ATNGSINGH S COMPUTER DISCOVERY TEACHER Ot J44.9 01/24/2015 KITTY SANDRA S COMPUTER DISCOVERY TEACHER Ot Z17.1 01/24/2015 KITTY SANDRA S COMPUTER DISCOVERY TEACHER Ot Z68.35 01/24/2015 KITTY SANDRA S COMPUTER DISCOVERY TEACHER Ot Z79.899 01/24/2015 GAMALIEL MURRAY, CEE Pryor Ot R92.8 01/24/2015 KITTY SANDRA S COMPUTER DISCOVERY TEACHER Ot C50.511 01/24/2015 KARIN TANGSINGH S COMPUTER DISCOVERY TEACHER Ot E66.9 01/24/2015 KARIN TANGSINGH S COMPUTER DISCOVERY TEACHER Ot E78.5 01/24/2015 KITTY SANDRA S COMPUTER DISCOVERY TEACHER Ot F17.210 01/24/2015 KITTY SANDRA S COMPUTER DISCOVERY TEACHER Ot F31.9 01/24/2015 KITTY SANDRA S COMPUTER DISCOVERY TEACHER Ot I10 01/24/2015 KARIN TANGSINGH S COMPUTER DISCOVERY TEACHER Ot J44.9 01/24/2015 KARIN TANGSINGH S COMPUTER DISCOVERY TEACHER Ot Z17.1 01/24/2015 KARIN TANGSINGH S COMPUTER DISCOVERY TEACHER Ot Z68.35 01/24/2015 KARIN TANGSINGH S COMPUTER DISCOVERY TEACHER Ot Z79.899 01/24/2015 GAMALIEL MURRAY, CEE K Ot C50.411 01/24/2015 GAMALIEL MURRAY, CEE K Ot E66.9 01/24/2015 GAMALIEL MURRAY, CEE Pryor Ot E78.5 01/24/2015 GAMALIEL MURRAY, CEE Pryor Ot F17.210 01/24/2015 GAMALIEL MURRAY, CEE Pryor Ot F31.9 01/24/2015 GAMALIEL MURRAY, CEE Pryor Ot I10 01/24/2015 GAMALIEL MURRAY, CEE Pryor Ot J44.9 01/24/2015 GAMALIEL MURRYA, CEE Pryor Ot Z17.0 01/24/2015 GAMALIEL MURRAY, CEE Pryor Ot Z68.34 01/24/2015 GAMALIEL MURRAY, CEE Pryor Ot Z79.899 01/24/2015 DARÍO BURROWS METEOROLOGIST LIAISON Ot N63 01/24/2015 DARÍO BURROWS METEOROLOGIST LIAISON Ot R92.8 01/24/2015 DARÍO BURROWS METEOROLOGIST LIAISON Ot N64.4 01/24/2015 SHERRY ROGEL MD (DDU) Ot Z02.71 01/24/2015 DARÍO BURROWS METEOROLOGIST LIAISON Ot N64.4 01/24/2015 DARÍO BURROWS METEOROLOGIST LIAISON Ot N63 01/24/2015 DARÍO BURROWS METEOROLOGIST LIAISON Ot R92.8 01/24/2015 GAMALIEL MURRAY, CEE Konstantin Ot C50.411 01/24/2015 GAMALIEL MURRAY, CEE Pryor [...] Pryor Ot Z79.899 01/24/2015 GAMALIEL MURRAY, CEE K Ot R92.8 01/24/2015 SANDRA TANG Ot C50.511 01/24/2015 SANDRA TANG COMPUTER DISCOVERY TEACHER Ot E66.9 01/24/2015 SANDRA TANG COMPUTER DISCOVERY TEACHER Ot E78.5 01/24/2015 SANDRA TANG COMPUTER DISCOVERY TEACHER Ot F17.210 01/24/2015 SANDRA TANG COMPUTER DISCOVERY TEACHER Ot F31.9 01/24/2015 SANDRA TANG COMPUTER DISCOVERY TEACHER Ot I10 01/24/2015 SANDRA TANG COMPUTER DISCOVERY TEACHER Ot J44.9 01/24/2015 SANDRA TANG S COMPUTER DISCOVERY TEACHER Ot Z17.1 01/24/2015 SANDRA TANG S COMPUTER DISCOVERY TEACHER Ot Z68.35 01/24/2015 SANDRA TANG COMPUTER DISCOVERY TEACHER Ot Z79.899 02/13/2015 GAMALIEL MURRAY, CEE Pryor Ot C50.511 02/13/2015 GAMALIEL MURRAY, CEE Pryor Ot Z51.81 02/13/2015 GAMALIEL MURRAY, CEE Pryor Ot Z79.899 02/13/2015 GAMALIEL MURRAY, CEE Pryor Ot C50.511 02/13/2015 GAMALIEL MURRAY, CEE Pryor Ot Z51.81 02/13/2015 GAMALIEL MURRAY, CEE Pryor Ot Z79.899 02/17/2015 PEBBLES MURRAY, SHERRY You (DDU) Ot Z02.71 02/17/2015 DARÍO BURROWS METEOROLOGIST LIAISON Ot N64.4 02/17/2015 DARÍO BURROWS METEOROLOGIST LIAISON Ot N63 02/17/2015 DARÍO BURROWS METEOROLOGIST LIAISON Ot R92.8 02/17/2015 GAMALIEL MURRAY, CEE Pryor Ot C50.411 02/17/2015 GAMALIEL MURRAY, CEE Pryor Ot E66.9 02/17/2015 GAMALIEL MURRAY, CEE Pryor Ot E78.5 02/17/2015 GAMALIEL MURRAY, CEE Pryor Ot F17.210 02/17/2015 GAMALIEL MURRAY, CEE Pryor Ot F31.9 02/17/2015 GAMALIEL MURRAY, CEE Pryor Ot I10 02/17/2015 GAMALIEL MURRAY, CEE Pryor Ot J44.9 02/17/2015 GAMALIEL MURRAY, CEE Pryor Ot Z17.0 02/17/2015 GAMALIEL MURRAY, CEE Pryor Ot Z68.34 02/17/2015 GAMALIEL MURRAY, CEE Konstantin Ot Z79.899 02/17/2015 GAMALIEL MURRAY, CEE Pryor Ot C50.411 02/17/2015 GAMALIEL MURRAY, CEE Pryor Ot Z51.81 02/17/2015 GAMALIEL MURRAY, CEE Pryor Ot Z79.899 02/17/2015 GAMALIEL MURRAY, CEE K Ot C50.511 02/17/2015 GAMALIEL MURRAY, CEE Pryor Ot R92.8 02/17/2015 TANGSANDRA COMPUTER DISCOVERY TEACHER Ot C50.511 02/17/2015 TANG, SANDRA S COMPUTER DISCOVERY TEACHER Ot E66.9 02/17/2015 TANG, HILAH S COMPUTER DISCOVERY TEACHER Ot E78.5 02/17/2015 TANG, HILAH S COMPUTER DISCOVERY TEACHER Ot F17.210 02/17/2015 TANG, HILAH S COMPUTER DISCOVERY TEACHER Ot F31.9 02/17/2015 TANG, HILAH S COMPUTER DISCOVERY TEACHER Ot I10 02/17/2015 TANG, HILAH S COMPUTER DISCOVERY TEACHER Ot J44.9 02/17/2015 TANG, HILAH S COMPUTER DISCOVERY TEACHER Ot Z17.1 02/17/2015 KITTY SANDRA S COMPUTER DISCOVERY TEACHER Ot Z68.35 02/17/2015 KITTYSANDRA S COMPUTER DISCOVERY TEACHER Ot Z79.899 02/17/2015 GAMALIEL MURRAY, CEE Pryor Ot C50.511 02/17/2015 GAMALIEL MURRAY, CEE Pryor Ot Z51.81 02/17/2015 GAMALIEL MURRAY, CEE Pryor Ot Z79.899 02/17/2015 GAMALIEL MURRAY, CEE Pryor Ot C50.411 02/17/2015 GAMALIEL MURRAY, CEE K Ot E66.9 02/17/2015 GAMALIEL MURRAY, CEE Pryor Ot E78.5 02/17/2015 GAMALIEL MURRAY, CEE K Ot F17.210 02/17/2015 GAMALIEL MURRAY, CEE K Ot F31.9 02/17/2015 GAMALIEL MURRAY, CEE K Ot I10 02/17/2015 GAMALIEL MURRAY, CEE Pryor Ot J44.9 02/17/2015 GAMALIEL MURRAY, CEE K Ot Z17.0 02/17/2015 GAMALIEL MURRAY, CEE K Ot Z68.34 02/17/2015 GAMALIEL MURRAY, CEE Pryor Ot Z79.899 02/21/2015 GAMALIEL MURRAY, CEE Pryor Ot C50.511 03/17/2015 PEBBLES MURRAY, SHERRY You (DDU) Ot Z02.71 03/17/2015 DARÍO BURROWS METEOROLOGIST LIAISON Ot N64.4 03/17/2015 DAROÍ BURROWS METEOROLOGIST LIAISON Ot N63 03/17/2015 DARÍO BURROWS METEOROLOGIST LIAISON Ot R92.8 03/17/2015 GAMALIEL MURRAY, CEE Pryor [...] GAMALIEL MURRAY, CEE Pryor Ot R92.8 03/17/2015 SANDRA TANG COMPUTER DISCOVERY TEACHER Ot C50.511 03/17/2015 SANDRA TANG S COMPUTER DISCOVERY TEACHER Ot E66.9 03/17/2015 SANDRA TANG S COMPUTER DISCOVERY TEACHER Ot E78.5 03/17/2015 KARIN TANGSINGH S COMPUTER DISCOVERY TEACHER Ot F17.210 03/17/2015 SANDRA TANG S COMPUTER DISCOVERY TEACHER Ot F31.9 03/17/2015 SANDRA TANG S COMPUTER DISCOVERY TEACHER Ot I10 03/17/2015 SANDRA TANG S COMPUTER DISCOVERY TEACHER Ot J44.9 03/17/2015 SANDRA TANG S COMPUTER DISCOVERY TEACHER Ot Z17.1 03/17/2015 SANDRA TANG S COMPUTER DISCOVERY TEACHER Ot Z68.35 03/17/2015 SANDRA TANG S COMPUTER DISCOVERY TEACHER Ot Z79.899 03/17/2015 GAMALIEL MURRAY, CEE Pryor Ot C50.511 03/17/2015 GAMALIEL MURRAY, CEE Pryor Ot Z51.81 03/17/2015 GAMALIEL MURRAY, CEE Konstantin Ot Z79.899 03/17/2015 GAMALIEL MURRAY, CEE Pryor Ot C50.511 03/19/2015 MARIA LUZ MURRAY, CAM Jara Ot C50.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 03/19/2015 MARIA LUZ MURRAY, CAM Estefani Ot Z11.2 ENCOUNTER FOR SCREENING FOR OTHER BACTER 03/20/2015 GAMALIEL MURRAY, CEE Konstantin Ot C50.511 03/20/2015 PEBBLES MURRAY, SHERRY You (DDU) Ot Z02.71 03/20/2015 DARÍO BURROWS METEOROLOGIST LIAISON Ot N64.4 03/20/2015 DARÍO BURROWS METEOROLOGIST LIAISON Ot N63 03/20/2015 DARÍO BURROWS METEOROLOGIST LIAISON Ot R92.8 03/20/2015 GAMALIEL MURRAY, CEE K Ot C50.411 03/20/2015 GAMALIEL MURRAY, CEE K Ot E66.9 03/20/2015 GAMALIEL MURRAY, CEE K Ot E78.5 03/20/2015 GAMALIEL MURRAY, CEE K Ot F17.210 03/20/2015 GAMALIEL MURRAY, CEE K Ot F31.9 03/20/2015 GAMALIEL MURRAY, CEE K Ot I10 03/20/2015 GAMALIEL MURRAY, CEE Pryor Ot J44.9 03/20/2015 GAMALIEL MURRAY, CEE K Ot Z17.0 03/20/2015 GAMALIEL MURRAY, CEE K Ot Z68.34 03/20/2015 GAMALIEL MURRAY, CEE K Ot Z79.899 03/20/2015 GAMALIEL MURRAY, CEE Pryor Ot C50.411 03/20/2015 GAMALIEL MURRAY, CEE Pryor Ot Z51.81 03/20/2015 GAMALIEL MURRAY, CEE K Ot Z79.899 03/20/2015 GAMALIEL MURRAY, CEE K Ot C50.511 03/20/2015 GAMALIEL MURRAY, CEE K Ot R92.8 03/20/2015 SANDRA TANG COMPUTER DISCOVERY TEACHER Ot C50.511 03/20/2015 SANDRA TANG COMPUTER DISCOVERY TEACHER Ot E66.9 03/20/2015 SANDRA TANG COMPUTER DISCOVERY TEACHER Ot E78.5 03/20/2015 SANDRA TANG COMPUTER DISCOVERY TEACHER Ot F17.210 03/20/2015 SANDRA TANG COMPUTER DISCOVERY TEACHER Ot F31.9 03/20/2015 SANDRA TANG COMPUTER DISCOVERY TEACHER Ot I10 03/20/2015 SANDRA TANG COMPUTER DISCOVERY TEACHER Ot J44.9 03/20/2015 SANDRA TANG COMPUTER DISCOVERY TEACHER Ot Z17.1 03/20/2015 TANG, HILAH S COMPUTER DISCOVERY TEACHER Ot Z68.35 03/20/2015 KITTY KARINAH S COMPUTER DISCOVERY TEACHER Ot Z79.899 03/20/2015 GAMALIEL MURRAY, CEE K Ot C50.511 03/20/2015 GAMALIEL MURRAY, CEE K Ot Z51.81 03/20/2015 GAMALIEL MURRAY, CEE Pryor Ot Z79.899 03/20/2015 GAMALIEL MURRAY, CEE K Ot C50.511 03/20/2015 MARIA LUZ MURRAY, CAM M Ot C50.911 03/20/2015 MARIA LUZ MURRAY, CAM M Ot Z01.818 03/20/2015 GAMALIEL MURRAY, CEE K Ot C50.511 03/20/2015 KITTY HILAH S COMPUTER DISCOVERY TEACHER Ot C50.511 03/20/2015 KARIN TANGAH S COMPUTER DISCOVERY TEACHER Ot E66.9 03/20/2015 KITTY HILAH S COMPUTER DISCOVERY TEACHER Ot E78.5 03/20/2015 KARIN TANGAH S COMPUTER DISCOVERY TEACHER Ot F17.210 03/20/2015 KARIN TANGAH S COMPUTER DISCOVERY TEACHER Ot F31.9 03/20/2015 SANDRA TANG S COMPUTER DISCOVERY TEACHER Ot I10 03/20/2015 SANDRA TANG S COMPUTER DISCOVERY TEACHER Ot J44.9 03/20/2015 SANDRA TANG S COMPUTER DISCOVERY TEACHER Ot Z17.1 03/20/2015 KARIN TANGAH S COMPUTER DISCOVERY TEACHER Ot Z68.35 03/20/2015 KITTY KARINAH S COMPUTER DISCOVERY TEACHER Ot Z79.899 03/20/2015 GAMALIEL MURRAY, CEE K Ot C50.511 03/20/2015 GAMALIEL MURRAY, CEE Pryor Ot Z51.81 03/20/2015 GAMALIEL MURRAY, CEE K Ot Z79.899 03/20/2015 KITTY SANDRA S COMPUTER DISCOVERY TEACHER Ot C50.511 03/20/2015 KARIN TANGAH S COMPUTER DISCOVERY TEACHER Ot E66.9 03/20/2015 SANDRA TANG S COMPUTER DISCOVERY TEACHER Ot E78.5 03/20/2015 KITTY HILAH S COMPUTER DISCOVERY TEACHER Ot F17.210 03/20/2015 KITTY HILAH S COMPUTER DISCOVERY TEACHER Ot F31.9 03/20/2015 KARIN TANGAH S COMPUTER DISCOVERY TEACHER Ot I10 03/20/2015 SANDRA TANG S COMPUTER DISCOVERY TEACHER Ot J44.9 03/20/2015 SANDRA TANG S COMPUTER DISCOVERY TEACHER Ot Z17.1 03/20/2015 KITTYSANDRA COMPUTER DISCOVERY TEACHER Ot Z68.35 03/20/2015 KITTY 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 Ot Z79.899 03/20/2015 GAMALIEL MURRAY, CEE Konstantin Ot R92.8 03/20/2015 GAMALIEL MURRAY, CEE Konstantin Ot C50.411 03/20/2015 GAMALIEL MURRAY, CEE Konstantin Ot E66.9 03/20/2015 GAMALIEL MURRAY, CEE Pryor Ot E78.5 03/20/2015 GAMALIEL MURRAY, CEE Konstantin Ot F17.210 03/20/2015 GAMALIEL MURRAY, CEE K Ot F31.9 03/20/2015 GAMALIEL MURRAY, CEE Pryor Ot I10 03/20/2015 GAMALIEL MURRAY, CEE Pryor Ot J44.9 03/20/2015 GAMALIEL MURRAY, CEE K Ot Z17.0 03/20/2015 GAMALIEL MURRAY, CEE Konstantin Ot Z68.34 03/20/2015 GAMALIEL MURRAY, CEE Konstantin Ot Z79.899 03/20/2015 GAMALIEL MURRAY, CEE Pryor Ot C50.411 03/20/2015 GAMALIEL MURRAY, CEE Konstantin Ot E66.9 03/20/2015 GAMALIEL MURRAY, CEE Konstantin Ot E78.5 03/20/2015 GAMALIEL MURRAY, CEE Konstantin Ot F17.210 03/20/2015 GAMALIEL MURRAY, CEE Pryor Ot F31.9 03/20/2015 GAMALIEL MURRAY, CEE Pryor Ot I10 03/20/2015 GAMALIEL MURRAY, CEE Konstantin Ot J44.9 03/20/2015 GAMALIEL MURRAY, CEE Pryor Ot Z17.0 03/20/2015 GAMALIEL MURRAY, CEE Konstantin Ot Z68.34 03/20/2015 GAMALIEL MURRAY, CEE Konstantin Ot Z79.899 03/20/2015 DARÍO BURROWS METEOROLOGIST LIAISON Ot N63 03/20/2015 DARÍO BURROWS METEOROLOGIST LIAISON Ot R92.8 03/20/2015 GAMALIEL MURRAY, CEE Pryor Ot C50.411 03/20/2015 GAMALIEL MURRAY, CEE Pryor Ot E66.9 03/20/2015 GAMALIEL MURRAY, CEE Pryor Ot E78.5 03/20/2015 GAMALIEL MURRAY, CEE Pryor Ot F17.210 03/20/2015 GAMALIEL MURRAY, CEE Pryor Ot F31.9 03/20/2015 GAMALIEL MURRAY, CEE Pryor Ot I10 03/20/2015 GAMALIEL MURRAY, CEE Pryor Ot J44.9 03/20/2015 GAMALIEL MURRAY, CEE Pryor Ot Z17.0 03/20/2015 GAMALIEL MURRAY, CEE Konstantin Ot Z68.34 03/20/2015 GAMALIEL MURRAY, CEE Pryor Ot Z79.899 03/20/2015 BURROWS, DARÍO You METEOROLOGIST LIAISON Ot N63 03/20/2015 BURROWS, DARÍO You METEOROLOGIST LIAISON Ot R92.8 03/20/2015 BURROWS, DARÍO oYu METEOROLOGIST LIAISON Ot N64.4 03/20/2015 BURROWS, DARÍO A METEOROLOGIST LIAISON Ot 784.2 03/25/2015 GAMALIEL MURRAY, CEE Konstantin Ot C50.511 03/25/2015 GAMALIEL MURRAY, CEE Konstantin Ot C50.511 03/25/2015 GAMALIEL MURRAY, CEE Pryor Ot Z51.81 03/25/2015 GAMALIEL MURRAY, CEE Konstantin Ot Z79.899 03/25/2015 GAMALIEL MURRAY, CEE Konstantin Ot C50.511 03/25/2015 GAMALIEL MURRAY, CEE Konstantin Ot C50.411 03/25/2015 GAMALIEL MURRAY, CEE Pryor Ot Z51.81 03/25/2015 GAMALIEL MURRAY, CEE Pryor Ot Z79.899 03/25/2015 BURROWS, DARÍO You METEOROLOGIST LIAISON Ot N63 03/25/2015 BURROWS, DARÍO A METEOROLOGIST LIAISON Ot R92.8 03/25/2015 BURROWS, DARÍO A METEOROLOGIST LIAISON Ot 784.2 03/31/2015 BURROWS, DARÍO A METEOROLOGIST LIAISON Ot 784.2 03/31/2015 PEBBLES MURRAY, SHERRY You (DDU) Ot Z02.71 03/31/2015 BURROWS, DARÍO A METEOROLOGIST LIAISON Ot N64.4 03/31/2015 BURROWS, DARÍO A METEOROLOGIST LIAISON Ot N63 03/31/2015 BURROWS, DARÍO A METEOROLOGIST LIAISON Ot R92.8 03/31/2015 GAMALIEL MURRAY, CEE Pryor Ot C50.411 03/31/2015 GAMALIEL MURRAY, CEE Pryor Ot E66.9 03/31/2015 GAMALIEL MURRAY, CEE Pryor Ot E78.5 03/31/2015 GAMALIEL MURRAY, CEE Pryor Ot F17.210 03/31/2015 GAMALIEL MURRAY, CEE Pryor Ot F31.9 03/31/2015 GAMALIEL MURRAY, CEE Pryor Ot I10 03/31/2015 GAMALIEL MURRAY, CEE Pryor Ot J44.9 03/31/2015 GAMALIEL MURRAY, CEE Pryor Ot Z17.0 03/31/2015 GAMALIEL MURRAY, CEE Pryor Ot Z68.34 03/31/2015 GAMALIEL MURRAY, CEE Pryor Ot Z79.899 03/31/2015 GAMALIEL MURRAY, CEE Pryor Ot C50.411 03/31/2015 GAMALIEL MURRAY, CEE Pryor Ot Z51.81 03/31/2015 GAMALIEL MURRAY, CEE Pryor Ot Z79.899 03/31/2015 GAMALIEL MURRAY, CEE Pryor Ot C50.511 03/31/2015 GAMALIEL MURRAY, CEE Pryor Ot R92.8 03/31/2015 KITTY SANDRA S COMPUTER DISCOVERY TEACHER Ot C50.511 03/31/2015 KITTY HILAH S COMPUTER DISCOVERY TEACHER Ot E66.9 03/31/2015 KITTY HILAH S COMPUTER DISCOVERY TEACHER Ot E78.5 03/31/2015 KITTY KARINAH S COMPUTER DISCOVERY TEACHER Ot F17.210 03/31/2015 KITTY KARINAH S COMPUTER DISCOVERY TEACHER Ot F31.9 03/31/2015 KITTY SANDRA S COMPUTER DISCOVERY TEACHER Ot I10 03/31/2015 KITTY SANDRA S COMPUTER DISCOVERY TEACHER Ot J44.9 03/31/2015 KITTY SANDRA S COMPUTER DISCOVERY TEACHER Ot Z17.1 03/31/2015 KITTY SANDRA S COMPUTER DISCOVERY TEACHER Ot Z68.35 03/31/2015 KITTY KARINAH S COMPUTER DISCOVERY TEACHER Ot Z79.899 03/31/2015 GAMALIEL MURRAY, CEE Pryor Ot C50.511 03/31/2015 GAMALIEL MURRAY, CEE Pryor Ot Z51.81 03/31/2015 GAMALIEL MURRAY, CEE Pryor Ot Z79.899 03/31/2015 GAMALIEL MURRAY, CEE Pryor Ot C50.511 03/31/2015 MARIA LUZ MURRAY, CAM Jara Ot C50.911 03/31/2015 MARIA LUZ MURRAY, CAM M Ot Z01.818 04/04/2015 DARÍO BURROWS METEOROLOGIST LIAISON Ot 784.2 04/04/2015 DARÍO BURROWS METEOROLOGIST LIAISON Ot N64.4 04/04/2015 DARÍO BURROWS METEOROLOGIST LIAISON Ot N63 04/04/2015 DARÍO BURROWS METEOROLOGIST LIAISON Ot R92.8 04/04/2015 GAMALIEL MURRAY, CEE Pryor Ot C50.511 04/04/2015 GAMALIEL MURRAY, CEE K Ot R92.8 04/04/2015 TANG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 Ot C50.511 04/04/2015 SANDRA TANG COMPUTER DISCOVERY TEACHER Ot E66.9 04/04/2015 SANDRA TANG S COMPUTER DISCOVERY TEACHER Ot E78.5 04/04/2015 SANDRA TANG S COMPUTER DISCOVERY TEACHER Ot F17.210 04/04/2015 SANDRA TANG S COMPUTER DISCOVERY TEACHER Ot F31.9 04/04/2015 SANDRA TANG S COMPUTER DISCOVERY TEACHER Ot I10 04/04/2015 SANDRA TANG S COMPUTER DISCOVERY TEACHER Ot J44.9 04/04/2015 SANDRA TANG S COMPUTER DISCOVERY TEACHER Ot Z17.1 04/04/2015 TANGSANDRA Lazar S COMPUTER DISCOVERY TEACHER Ot Z68.35 04/04/2015 TANG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 Ot Z79.899 04/04/2015 GAMALIEL MURRAY, CEE Konstantin Ot C50.511 04/04/2015 GAMALIEL MURRAY, CEE Konstantin Ot Z51.81 04/04/2015 GAMALIEL MURRAY, CEE K Ot Z79.899 04/04/2015 GAMALIEL MURRAY, CEE Pryor Ot C50.511 04/07/2015 DARÍO BURROWS METEOROLOGIST LIAISON Ot 784.2 04/07/2015 PEBBLES MURRAY, SHERRY You (DDU) Ot Z02.71 04/07/2015 DARÍO BURROWS METEOROLOGIST LIAISON Ot N64.4 04/07/2015 DARÍO BURROWS METEOROLOGIST LIAISON Ot N63 04/07/2015 DARÍO BURROWS METEOROLOGIST LIAISON Ot R92.8 04/07/2015 GAMALIEL MURRAY, CEE Konstantin Ot C50.411 04/07/2015 GAMALIEL MURRAY, CEE Konstantin Ot E66.9 04/07/2015 GAMALIEL MURRAY, CEE Konstantin Ot E78.5 04/07/2015 GAMALIEL MURRAY, CEE Konstantin Ot F17.210 04/07/2015 GAMALIEL MURRAY, CEE Konstantin Ot F31.9 04/07/2015 GAMALIEL MURRAY, CEE K Ot I10 04/07/2015 GAMALIEL MURRAY, CEE Konstantin Ot J44.9 04/07/2015 GAMALIEL MURRAY, CEE Konstantin Ot Z17.0 04/07/2015 GAMALIEL MURRAY, CEE K Ot Z68.34 04/07/2015 GAMALIEL MURRAY, CEE K Ot Z79.899 04/07/2015 GAMALIEL MURRAY, CEE Pryor Ot C50.411 04/07/2015 GAMALIEL MURRAY, CEE Pryor Ot Z51.81 04/07/2015 GAMALIEL MURRAY, CEE Pryor Ot Z79.899 04/07/2015 GAMALIEL MURRAY, CEE Pryor Ot C50.511 04/07/2015 GAMALIEL MURRAY, CEE Pryor Ot R92.8 04/07/2015 KITTY SANDRA S COMPUTER DISCOVERY TEACHER Ot C50.511 04/07/2015 KARIN TANGSINGH S COMPUTER DISCOVERY TEACHER Ot E66.9 04/07/2015 KITTY SANDRA S COMPUTER DISCOVERY TEACHER Ot E78.5 04/07/2015 KITTY SANDRA S COMPUTER DISCOVERY TEACHER Ot F17.210 04/07/2015 KITTY SANDRA S COMPUTER DISCOVERY TEACHER Ot F31.9 04/07/2015 KITTY SANDRA S COMPUTER DISCOVERY TEACHER Ot I10 04/07/2015 KITTY SANDRA S COMPUTER DISCOVERY TEACHER Ot J44.9 04/07/2015 KITTY SANDRA S COMPUTER DISCOVERY TEACHER Ot Z17.1 04/07/2015 KITTY SANDRA S COMPUTER DISCOVERY TEACHER Ot Z68.35 04/07/2015 KITTY SANDRA S COMPUTER DISCOVERY TEACHER Ot Z79.899 04/07/2015 GAMALIEL MURRAY, CEE Pryor Ot C50.511 04/07/2015 GAMALIEL MURRAY, CEE Pryor Ot Z51.81 04/07/2015 GAMALIEL MURRAY, CEE Pryor Ot Z79.899 04/07/2015 GAMALIEL MURRAY, CEE Pryor Ot C50.511 04/07/2015 MARIA LUZ MURRAY, CAM Jara Ot C50.911 04/07/2015 MARIA LUZ MURRAY, CAM M Ot Z01.818 04/14/2015 GAMALIEL MURRAY, CEE Pryor Ot C50.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 04/14/2015 CEE ALSTON MD Ot E66.9 OBESITY, UNSPECIFIED 04/14/2015 GAMALIEL MURRAY, [...] GAMALIEL MURRAY, CEE Pryor Ot Z79.899 OTHER [facility] (CURRENT) DRUG THERAPY 04/21/2015 GAMALIEL MURRAY, CEE [...] Pryor Ot Z68.34 04/21/2015 GAMALIEL MURRAY, CEE Pryor Ot Z79.899 04/22/2015 GAMALIEL MURRAY, CEE Pryor Ot C50.411 04/22/2015 GAMALIEL MURRAY, CEE Pryor Ot E66.9 04/22/2015 GAMALIEL MURRAY, CEE Pryor Ot E78.5 04/22/2015 GAMALIEL MURRAY, CEE Pryor Ot F17.210 04/22/2015 GAMALIEL MURRAY, CEE Pryor Ot F31.9 04/22/2015 GAMALIEL MURRAY, CEE Pryor Ot I10 04/22/2015 GAMALIEL MURRAY, CEE Pryor Ot J44.9 04/22/2015 GAMALIEL MURRAY, CEE K Ot Z17.0 04/22/2015 GAMALIEL MURRAY, CEE Pryor Ot Z68.34 04/22/2015 GAMALIEL MURRAY, CEE Pryor Ot Z79.899 04/24/2015 GAMALIEL MURRAY, CEE Pryor Ot C50.511 04/24/2015 GAMALIEL MURRAY, CEE Pryor Ot Z51.81 04/24/2015 GAMALIEL MURRAY, CEE Pryor Ot Z79.899 04/29/2015 SANDRA TANG Ot C50.511 04/29/2015 SANDRA TANG COMPUTER DISCOVERY TEACHER Ot Z79.899 04/30/2015 GAMALIEL MURRAY, CEE Pryor Ot C50.411 04/30/2015 GAMALIEL MURRAY, CEE Pryor Ot E66.9 04/30/2015 GAMALIEL MURRAY, CEE Pryor Ot E78.5 04/30/2015 GAMALIEL MURRAY, CEE Pryor Ot F17.210 04/30/2015 GAMALIEL MURRAY, CEE Pryor Ot F31.9 04/30/2015 GAMALIEL MURRAY, CEE Pryor Ot I10 04/30/2015 GAMALIEL MURRAY, CEE Pryor Ot J44.9 04/30/2015 GAMALIEL MURRAY, CEE Pryor Ot Z17.0 04/30/2015 GAMALIEL MURRAY, CEE Pryor Ot Z68.34 04/30/2015 GAMALIEL MURRAY, CEE Pryor Ot Z79.899 05/02/2015 GAMALIEL MURRAY, CEE Pryor Ot C50.511 05/02/2015 GAMALIEL MURRAY, CEE Konstantin Ot Z51.81 05/02/2015 GAMALIEL MURRAY, CEE Konstantin Ot C50.411 05/02/2015 GAMALIEL MURRAY, CEE Pryor Ot E66.9 05/02/2015 GAMALIEL MURRAY, CEE Pryor Ot E78.5 05/02/2015 GAMALIEL MURRAY, CEE Pryor Ot F17.210 05/02/2015 GAMALIEL MURRAY, CEE Pryor Ot F31.9 05/02/2015 GAMALIEL MURRAY, CEE Pryor Ot I10 05/02/2015 GAMALIEL MURRAY, CEE Pryor Ot J44.9 05/02/2015 GAMALIEL MURRAY, CEE Pryor Ot Z17.0 05/02/2015 GAMALIEL MURRAY, CEE Pryor Ot Z68.34 05/02/2015 GAMALIEL MURRAY, CEE Pryor Ot Z79.899 05/15/2015 GAMALIEL MURRAY, CEE Pryor Ot C50.511 05/15/2015 GAMALIEL MURRAY, CEE Pryor Ot Z51.81 06/17/2015 DARÍO BURROWS METEOROLOGIST LIAISON Ot 784.2 SWELLING IN HEAD NECK 06/17/2015 SHERRY ROGEL MD (DDU) Ot Z02.71 ENCOUNTER FOR DISABILITY DETERMINATION 06/17/2015 DARÍO BURROWS METEOROLOGIST LIAISON Ot N64.4 MASTODYNIA 06/17/2015 DARÍO BURROWS METEOROLOGIST LIAISON Ot N63 UNSPECIFIED LUMP IN BREAST 06/17/2015 DARÍO BURROWS APRN Ot R92.8 OTH ABN AND INCONCLUSIVE FINDINGS ON DX 06/17/2015 GAMALIEL MURRAY, CEE Pryor Ot C50.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 06/17/2015 GAMALIEL MURRAY, CEE Pryor Ot Z51.81 ENCOUNTER FOR THERAPEUTIC DRUG LEVEL MON 06/17/2015 CEE ALSTON MD Ot Z79.899 OTHER [facility] (CURRENT) DRUG THERAPY 06/17/2015 CEE ALSTON MD Ot 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 06/17/2015 CEE ALSTON MD Ot R92.8 OTH ABN AND INCONCLUSIVE FINDINGS ON DX 06/17/2015 SANDRA TANG Cady COMPUTER DISCOVERY TEACHER Ot 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 06/17/2015 SANDRA TANG S COMPUTER DISCOVERY TEACHER Ot E66.9 OBESITY, UNSPECIFIED 06/17/2015 SANDRA TANG S COMPUTER DISCOVERY TEACHER Ot E78.5 HYPERLIPIDEMIA, UNSPECIFIED 06/17/2015 KARIN TANGSINGH S COMPUTER DISCOVERY TEACHER Ot F17.210 NICOTINE DEPENDENCE, CIGARETTES, UNCOMPL 06/17/2015 SANDRA TANG S COMPUTER DISCOVERY TEACHER Ot F31.9 BIPOLAR DISORDER, UNSPECIFIED 06/17/2015 KARIN TANGSINGH S COMPUTER DISCOVERY TEACHER Ot I10 ESSENTIAL (PRIMARY) HYPERTENSION 06/17/2015 SANDRA TANG S COMPUTER DISCOVERY TEACHER Ot J44.9 CHRONIC OBSTRUCTIVE PULMONARY DISEASE, U 06/17/2015 SANDRA TANG S COMPUTER DISCOVERY TEACHER Ot Z17.1 ESTROGEN RECEPTOR NEGATIVE STATUS [ER-] 06/17/2015 SANDRA TANG S COMPUTER DISCOVERY TEACHER Ot Z68.35 BODY MASS INDEX (BMI) 35.0-35.9, ADULT 06/17/2015 SANDRA TANG S COMPUTER DISCOVERY TEACHER Ot Z79.899 OTHER SUPERVISOR SCREEN PRINTING (CURRENT) DRUG THERAPY 06/17/2015 CEE ALSTON MD Ot 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 06/17/2015 CEE ALSTON MD Ot Z51.81 ENCOUNTER FOR THERAPEUTIC DRUG LEVEL MON 06/17/2015 CEE ALSTON MD Ot Z79.899 OTHER [facility] (CURRENT) DRUG THERAPY 06/17/2015 CEE ALSTON MD Ot 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 06/17/2015 CAM BRAGA MD Ot C50.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 06/17/2015 CAM BRAGA MD Ot Z01.818 ENCOUNTER FOR OTHER PREPROCEDURAL EXAMIN 06/17/2015 CEE ALSTON MD Ot 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 06/17/2015 CEE ALSTON MD Ot Z51.81 ENCOUNTER FOR THERAPEUTIC DRUG LEVEL MON 06/17/2015 CEE ALSTON MD Ot Z79.899 OTHER SUPERVISOR SCREEN PRINTING (CURRENT) DRUG THERAPY 06/17/2015 SANDRA TANG Ot 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 06/17/2015 SANDRA TANG Ot Z79.899 OTHER SUPERVISOR SCREEN PRINTING (CURRENT) DRUG THERAPY 06/17/2015 CEE ALSTON MD Ot C50.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 06/17/2015 CEE ALSTON MD Ot E66.9 OBESITY, UNSPECIFIED 06/17/2015 CEE ALSTON MD, Ot E78.5 HYPERLIPIDEMIA, UNSPECIFIED 06/17/2015 CEE ALSTON MD, Ot F17.210 NICOTINE DEPENDENCE, CIGARETTES, UNCOMPL 06/17/2015 CEE ALSTON MD Ot F31.9 BIPOLAR DISORDER, UNSPECIFIED 06/17/2015 CEE ALSTON MD Ot I10 ESSENTIAL (PRIMARY) HYPERTENSION 06/17/2015 CEE ALSTON MD, Ot J44.9 CHRONIC OBSTRUCTIVE PULMONARY DISEASE, U 06/17/2015 CEE ALSTON MD Ot Z17.0 ESTROGEN RECEPTOR POSITIVE STATUS [ER+] 06/17/2015 CEE ALSTON MD Ot Z68.34 BODY MASS INDEX (BMI) 34.0-34.9, ADULT 06/17/2015 CEE ALSTON MD Ot Z79.899 OTHER [facility] (CURRENT) DRUG THERAPY 06/17/2015 CEE ALSTON MD Ot 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 06/17/2015 CEE ALSTON MD Ot Z51.81 ENCOUNTER FOR THERAPEUTIC DRUG LEVEL MON 07/30/2015 CEE ALSTON MD, Ot C50.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 07/30/2015 CEE ALSTON MD, Ot E66.9 OBESITY, UNSPECIFIED 07/30/2015 CEE ALSTON MD, Ot E78.5 HYPERLIPIDEMIA, UNSPECIFIED 07/30/2015 CEE ALSTON MD Ot F17.210 NICOTINE DEPENDENCE, CIGARETTES, UNCOMPL 07/30/2015 CEE ALSTON MD Ot F31.9 BIPOLAR DISORDER, UNSPECIFIED 07/30/2015 CEE ALSTON MD Ot I10 ESSENTIAL (PRIMARY) HYPERTENSION 07/30/2015 CEE ALSTON MD, Ot J44.9 CHRONIC OBSTRUCTIVE PULMONARY DISEASE, U 07/30/2015 CEE ALSTON MD Ot Z17.0 ESTROGEN RECEPTOR POSITIVE STATUS [ER+] 07/30/2015 CEE ALSTON MD, Ot Z51.11 ENCOUNTER FOR ANTINEOPLASTIC CHEMOTHERAP 07/30/2015 CEE ALSTON MD, Ot Z68.34 BODY MASS INDEX (BMI) 34.0-34.9, ADULT 07/30/2015 CEE ALSTON MD, Ot Z79.899 OTHER SUPERVISOR SCREEN PRINTING (CURRENT) DRUG THERAPY 07/31/2015 CEE ALSTON MD, Ot C50.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 07/31/2015 CEE ALSTON MD Ot E66.9 OBESITY, UNSPECIFIED 07/31/2015 CEE ALSTON MD, Ot E78.5 HYPERLIPIDEMIA, UNSPECIFIED 07/31/2015 CEE ALSTON MD Ot F17.210 NICOTINE DEPENDENCE, CIGARETTES, UNCOMPL 07/31/2015 CEE ALSTON MD, Ot F31.9 BIPOLAR DISORDER, UNSPECIFIED 07/31/2015 CEE ALSTON MD Ot I10 ESSENTIAL (PRIMARY) HYPERTENSION 07/31/2015 CEE ALSTON MD, Ot J44.9 CHRONIC OBSTRUCTIVE PULMONARY DISEASE, U 07/31/2015 CEE ALSTON MD Ot Z17.0 ESTROGEN RECEPTOR POSITIVE STATUS [ER+] 07/31/2015 CEE ALSTON MD, Ot Z51.11 ENCOUNTER FOR ANTINEOPLASTIC CHEMOTHERAP 07/31/2015 CEE ALSTON MD, Ot Z68.34 BODY MASS INDEX (BMI) 34.0-34.9, ADULT 07/31/2015 CEE ALSTON MD, Ot Z79.899 OTHER SUPERVISOR SCREEN PRINTING (CURRENT) DRUG THERAPY 08/05/2015 CEE ALSTON MD, Ot C50.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 08/05/2015 CEE ALSTON MD Ot E66.9 OBESITY, UNSPECIFIED 08/05/2015 CEE ALSTON MD Ot E78.5 HYPERLIPIDEMIA, UNSPECIFIED 08/05/2015 CEE ALSTON MD Ot F17.210 NICOTINE DEPENDENCE, CIGARETTES, UNCOMPL 08/05/2015 CEE ALSTON MD Ot F31.9 BIPOLAR DISORDER, UNSPECIFIED 08/05/2015 CEE ALSTON MD Ot I10 ESSENTIAL (PRIMARY) HYPERTENSION 08/05/2015 CEE ALSTON MD Ot J44.9 CHRONIC OBSTRUCTIVE PULMONARY DISEASE, U 08/05/2015 CEE ALSTON MD Ot Z17.0 ESTROGEN RECEPTOR POSITIVE STATUS [ER+] 08/05/2015 CEE ALSTON MD Ot Z51.11 ENCOUNTER FOR ANTINEOPLASTIC CHEMOTHERAP 08/05/2015 CEE ALSTON MD Ot Z68.34 BODY MASS INDEX (BMI) 34.0-34.9, ADULT 08/05/2015 CEE ALSTON MD Ot Z79.899 OTHER [facility] (CURRENT) DRUG THERAPY 01/01/2016 CEE ALSTON MD Ot C50.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 01/01/2016 CEE ALSTON MD Ot E66.9 OBESITY, UNSPECIFIED 01/01/2016 CEE ALSTON MD Ot E78.5 HYPERLIPIDEMIA, UNSPECIFIED 01/01/2016 CEE ALSTON MD Ot F17.210 NICOTINE DEPENDENCE, CIGARETTES, UNCOMPL 01/01/2016 CEE ALSTON MD Ot F31.9 BIPOLAR DISORDER, UNSPECIFIED 01/01/2016 CEE ALSTON MD Ot I10 ESSENTIAL (PRIMARY) HYPERTENSION 01/01/2016 CEE ALSTON MD Ot J44.9 CHRONIC OBSTRUCTIVE PULMONARY DISEASE, U 01/01/2016 CEE ALSTNO MD Ot Z17.0 ESTROGEN RECEPTOR POSITIVE STATUS [ER+] 01/01/2016 CEE ALSTON MD Ot Z51.11 ENCOUNTER FOR ANTINEOPLASTIC CHEMOTHERAP 01/01/2016 CEE ALSTON MD Ot Z68.34 BODY MASS INDEX (BMI) 34.0-34.9, ADULT 01/01/2016 CEE ALSTON MD Ot Z79.899 OTHER SUPERVISOR SCREEN PRINTING (CURRENT) DRUG THERAPY 02/16/2016 DARÍO BURROWS METEOROLOGIST LIAISON Ot 784.2 SWELLING IN HEAD NECK 02/16/2016 SHERRY ROGEL MD ([facility]) Ot Z02.71 ENCOUNTER FOR DISABILITY DETERMINATION 02/16/2016 DARÍO BURROWS METEOROLOGIST LIAISON Ot N64.4 MASTODYNIA 02/16/2016 DARÍO BURROWS METEOROLOGIST LIAISON Ot N63 UNSPECIFIED LUMP IN BREAST 02/16/2016 DARÍO BURROWS APRN Ot R92.8 OTH ABN AND INCONCLUSIVE FINDINGS ON DX 02/16/2016 CEE ALSTON MD Ot C50.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 02/16/2016 CEE ALSTON MD Ot Z51.81 ENCOUNTER FOR THERAPEUTIC DRUG LEVEL MON 02/16/2016 CEE ALSTON MD Ot Z79.899 OTHER SUPERVISOR SCREEN PRINTING (CURRENT) DRUG THERAPY 02/16/2016 CEE ALSTON MD Ot 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 02/16/2016 CEE ALSTON MD, Ot R92.8 OTH ABN AND INCONCLUSIVE FINDINGS ON DX 02/16/2016 SANDRA TANG COMPUTER DISCOVERY TEACHER Ot 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 02/16/2016 SANDRA TANG COMPUTER DISCOVERY TEACHER Ot E66.9 OBESITY, UNSPECIFIED 02/16/2016 SANDRA TANG S COMPUTER DISCOVERY TEACHER Ot E78.5 HYPERLIPIDEMIA, UNSPECIFIED 02/16/2016 SANDRA TANG COMPUTER DISCOVERY TEACHER Ot F17.210 NICOTINE DEPENDENCE, CIGARETTES, UNCOMPL 02/16/2016 SANDRA TANG COMPUTER DISCOVERY TEACHER Ot F31.9 BIPOLAR DISORDER, UNSPECIFIED 02/16/2016 SANDRA TANG S COMPUTER DISCOVERY TEACHER Ot I10 ESSENTIAL (PRIMARY) HYPERTENSION 02/16/2016 SANDRA TANG COMPUTER DISCOVERY TEACHER Ot J44.9 CHRONIC OBSTRUCTIVE PULMONARY DISEASE, U 02/16/2016 SANDRA TANG S COMPUTER DISCOVERY TEACHER Ot Z17.1 ESTROGEN RECEPTOR NEGATIVE STATUS [ER-] 02/16/2016 SANDRA TANG COMPUTER DISCOVERY TEACHER Ot Z68.35 BODY MASS INDEX (BMI) 35.0-35.9, ADULT 02/16/2016 SANDRA TANG COMPUTER DISCOVERY TEACHER Ot Z79.899 OTHER [facility] (CURRENT) DRUG THERAPY 02/16/2016 CEE ALSTON MD Ot 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 02/16/2016 CEE ALSTON MD Ot Z51.81 ENCOUNTER FOR THERAPEUTIC DRUG LEVEL MON 02/16/2016 CEE ALSTON MD Ot Z79.899 OTHER SUPERVISOR SCREEN PRINTING (CURRENT) DRUG THERAPY 02/16/2016 CEE ALSTON MD Ot 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 02/16/2016 CAM BRAGA MD Ot C50.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 02/16/2016 CAM BRAGA MD Ot Z01.818 ENCOUNTER FOR OTHER PREPROCEDURAL EXAMIN 02/16/2016 CEE ALSTON MD Ot 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 02/16/2016 GAMALIEL MURRAY CEE Konstantin Ot Z51.81 ENCOUNTER FOR THERAPEUTIC DRUG LEVEL MON 02/16/2016 GAMALIEL MURRAY CEE Konstantin Ot Z79.899 OTHER [facility] (CURRENT) DRUG THERAPY 02/16/2016 SANDRA TANG Ot 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 02/16/2016 SANDRA TANG Ot Z79.899 OTHER SUPERVISOR SCREEN PRINTING (CURRENT) DRUG THERAPY 02/16/2016 GAMALIEL MURRAY CEE Konstantin Ot C50.511 MALIG NEOPLM OF LOWER-OUTER QUADRANT [...] 02/16/2016 EULOGIO BRAGA MD, Ot Z79.899 OTHER SUPERVISOR SCREEN PRINTING (CURRENT) DRUG THERAPY 02/16/2016 DARÍO BURROWS APRN Ot 784.2 SWELLING IN HEAD NECK 02/16/2016 SHERRY ROGEL MD ([facility]) Ot Z02.71 ENCOUNTER FOR DISABILITY DETERMINATION 02/16/2016 [...] 02/16/2016 CEE ALSTON MD Ot Z79.899 OTHER SUPERVISOR SCREEN PRINTING (CURRENT) DRUG THERAPY 02/16/2016 CEE ALSTON MD Ot 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 02/16/2016 CEE ALSTON MD Ot R92.8 OTH ABN AND INCONCLUSIVE FINDINGS ON DX 02/16/2016 SANDRA TANG COMPUTER DISCOVERY TEACHER Ot 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 02/16/2016 SANDRA TANG S COMPUTER DISCOVERY TEACHER Ot E66.9 OBESITY, UNSPECIFIED 02/16/2016 SANDRA TANG S COMPUTER DISCOVERY TEACHER Ot E78.5 HYPERLIPIDEMIA, UNSPECIFIED 02/16/2016 SANDRA TANG S COMPUTER DISCOVERY TEACHER Ot F17.210 NICOTINE DEPENDENCE, CIGARETTES, UNCOMPL 02/16/2016 SANDRA TANG S COMPUTER DISCOVERY TEACHER Ot F31.9 BIPOLAR DISORDER, UNSPECIFIED 02/16/2016 SANDRA TANG S COMPUTER DISCOVERY TEACHER Ot I10 ESSENTIAL (PRIMARY) HYPERTENSION 02/16/2016 SANDRA TANG COMPUTER DISCOVERY TEACHER Ot J44.9 CHRONIC OBSTRUCTIVE PULMONARY DISEASE, U 02/16/2016 SANDRA TANG S COMPUTER DISCOVERY TEACHER Ot Z17.1 ESTROGEN RECEPTOR NEGATIVE STATUS [ER-] 02/16/2016 SANDRA TANG S COMPUTER DISCOVERY TEACHER Ot Z68.35 BODY MASS INDEX (BMI) 35.0-35.9, ADULT 02/16/2016 SANDRA TANG S COMPUTER DISCOVERY TEACHER Ot Z79.899 OTHER SUPERVISOR SCREEN PRINTING (CURRENT) DRUG THERAPY 02/16/2016 CEE ALSTON MD Ot 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 02/16/2016 CEE ALSTON MD Ot Z51.81 ENCOUNTER FOR THERAPEUTIC DRUG LEVEL MON 02/16/2016 CEE ALSTON MD Ot Z79.899 OTHER SUPERVISOR SCREEN PRINTING (CURRENT) DRUG THERAPY 02/16/2016 CEE ALSTON MD [...] 02/16/2016 CEE ALSTON MD Ot Z79.899 OTHER SUPERVISOR SCREEN PRINTING (CURRENT) DRUG THERAPY 02/16/2016 SANDRA TANG Ot 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 02/16/2016 SANDRA TANG Ot Z79.899 OTHER [facility]CI (CURRENT) DRUG THERAPY 02/16/2016 CEE ALSTON MD [...] MD Ot I10 ESSENTIAL (PRIMARY) HYPERTENSION 02/16/2016 EULOIGO BRAGA MD Ot J44.9 CHRONIC OBSTRUCTIVE PULMONARY DISEASE, U 02/16/2016 EULOGIO BRAGA MD Ot Z17.0 ESTROGEN RECEPTOR POSITIVE STATUS [ER+] 02/16/2016 EULOGIO BRAGA MD Ot Z68.34 BODY MASS INDEX (BMI) 34.0-34.9, ADULT 02/16/2016 EULOGIO BRAGA MD Ot Z79.899 OTHER SUPERVISOR SCREEN PRINTING (CURRENT) DRUG THERAPY 02/16/2016 EDIL QURESHI Ot F17.210 NICOTINE DEPENDENCE, CIGARETTES, UNCOMPL 02/16/2016 EDIL QURESHI Ot F41.9 ANXIETY DISORDER, UNSPECIFIED 02/16/2016 EDIL QURESHI Ot I10 ESSENTIAL (PRIMARY) HYPERTENSION 02/16/2016 EDIL QURESHI Ot Z95.9 PRESENCE OF CARDIAC AND VASCULAR IMPLANT 02/16/2016 DARÍO BURROWS APRN Ot 784.2 SWELLING IN HEAD NECK 02/16/2016 SHERRY ROGEL MD ([facility]) Ot Z02.71 ENCOUNTER FOR DISABILITY DETERMINATION 02/16/2016 DARÍO BURROWS METEOROLOGIST LIAISON Ot N64.4 MASTODYNIA 02/16/2016 DARÍO BURROWS METEOROLOGIST LIAISON Ot N63 UNSPECIFIED LUMP IN BREAST 02/16/2016 DARÍO BURROWS APRN Ot R92.8 OTH ABN AND INCONCLUSIVE FINDINGS ON DX 02/16/2016 CEE ALSTON MD Ot C50.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 02/16/2016 CEE ALSTON MD Ot Z51.81 ENCOUNTER FOR THERAPEUTIC DRUG LEVEL MON 02/16/2016 CEE ALSTON MD Ot Z79.899 OTHER SUPERVISOR SCREEN PRINTING (CURRENT) DRUG THERAPY 02/16/2016 CEE ALSTON MD Ot 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 02/16/2016 CEE ALSTON MD Ot R92.8 OTH ABN AND INCONCLUSIVE FINDINGS ON DX 02/16/2016 SANDRA TANG Ot 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 02/16/2016 SANDRA TANG Ot E66.9 OBESITY, UNSPECIFIED 02/16/2016 SANDRA TANGP Ot E78.5 HYPERLIPIDEMIA, UNSPECIFIED 02/16/2016 SANDRA TANG Ot F17.210 NICOTINE DEPENDENCE, CIGARETTES, UNCOMPL 02/16/2016 SANDRA TNAG Ot F31.9 BIPOLAR DISORDER, UNSPECIFIED 02/16/2016 SANDRA TANGP Ot I10 ESSENTIAL (PRIMARY) HYPERTENSION 02/16/2016 SANDRA TANG Ot J44.9 CHRONIC OBSTRUCTIVE PULMONARY DISEASE, U 02/16/2016 SANDRA TANG Ot Z17.1 ESTROGEN RECEPTOR NEGATIVE STATUS [ER-] 02/16/2016 SANDRA TANG Ot Z68.35 BODY MASS INDEX (BMI) 35.0-35.9, ADULT 02/16/2016 SANDRA TANG Ot Z79.899 OTHER [facility] (CURRENT) DRUG THERAPY 02/16/2016 CEE ALSTON MD Ot 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 02/16/2016 CEE ALSTON MD Ot Z51.81 ENCOUNTER FOR THERAPEUTIC DRUG LEVEL MON 02/16/2016 CEE ALSTON MD Ot Z79.899 OTHER SUPERVISOR SCREEN PRINTING (CURRENT) DRUG THERAPY 02/16/2016 CEE ALSTON MD [...] 02/16/2016 CEE ALSTON MD Ot Z79.899 OTHER SUPERVISOR SCREEN PRINTING (CURRENT) DRUG THERAPY 02/16/2016 SANDRA TANG Ot 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 02/16/2016 SANDRA TANG Ot Z79.899 OTHER [facility]CI (CURRENT) DRUG THERAPY 02/16/2016 CEE ALSTON MD [...] 02/16/2016 EULOGIO BRAGA MD, Ot Z79.899 OTHER SUPERVISOR SCREEN PRINTING (CURRENT) DRUG THERAPY 02/17/2016 EDIL QURESHI Ot F17.210 NICOTINE DEPENDENCE, CIGARETTES, UNCOMPL 02/17/2016 EDIL QURESHI Ot F41.9 ANXIETY DISORDER, UNSPECIFIED 02/17/2016 EDIL QURESHI Ot I10 ESSENTIAL (PRIMARY) HYPERTENSION 02/17/2016 EDIL QURESHI Ot Z95.9 PRESENCE OF CARDIAC AND VASCULAR IMPLANT 03/01/2016 DARÍO BURROWS APRN Ot 784.2 SWELLING IN HEAD NECK 03/01/2016 SHERRY ROGEL MD ([facility]) Ot Z02.71 ENCOUNTER FOR DISABILITY DETERMINATION 03/01/2016 DARÍO BURROWS APRN Ot N64.4 MASTODYNIA 03/01/2016 DARÍO BURROWS APRN Ot N63 UNSPECIFIED LUMP IN BREAST 03/01/2016 DARÍO BURROWS APRN Ot R92.8 OTH ABN AND INCONCLUSIVE FINDINGS ON DX 03/01/2016 CEE ALSTON MD Ot C50.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 03/01/2016 CEE ALSTON MD Ot Z51.81 ENCOUNTER FOR THERAPEUTIC DRUG LEVEL MON 03/01/2016 CEE ALSTON MD Ot Z79.899 OTHER SUPERVISOR SCREEN PRINTING (CURRENT) DRUG THERAPY 03/01/2016 CEE ALSTON MD Ot 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 03/01/2016 CEE ALSTON MD Ot R92.8 OTH ABN AND INCONCLUSIVE FINDINGS ON DX 03/01/2016 SANDRA TANG Ot 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 03/01/2016 SANDRA TANG Ot E66.9 OBESITY, UNSPECIFIED 03/01/2016 SANDRA TANG COMPUTER DISCOVERY TEACHER Ot E78.5 HYPERLIPIDEMIA, UNSPECIFIED 03/01/2016 SANDRA TANG COMPUTER DISCOVERY TEACHER Ot F17.210 NICOTINE DEPENDENCE, CIGARETTES, UNCOMPL 03/01/2016 SANDRA TANG COMPUTER DISCOVERY TEACHER Ot F31.9 BIPOLAR DISORDER, UNSPECIFIED 03/01/2016 SANDRA TANG COMPUTER DISCOVERY TEACHER Ot I10 ESSENTIAL (PRIMARY) HYPERTENSION 03/01/2016 SANDRA TANGP Ot J44.9 CHRONIC OBSTRUCTIVE PULMONARY DISEASE, U 03/01/2016 SANDRA TANG COMPUTER DISCOVERY TEACHER Ot Z17.1 ESTROGEN RECEPTOR NEGATIVE STATUS [ER-] 03/01/2016 SANDRA TANG COMPUTER DISCOVERY TEACHER Ot Z68.35 BODY MASS INDEX (BMI) 35.0-35.9, ADULT 03/01/2016 SANDRA TANGP Ot Z79.899 OTHER [facility] (CURRENT) DRUG THERAPY 03/01/2016 CEE ALSTON MD Ot 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 03/01/2016 CEE ALSTON MD Ot Z51.81 ENCOUNTER FOR THERAPEUTIC DRUG LEVEL MON 03/01/2016 CEE ALSTON MD Ot Z79.899 OTHER SUPERVISOR SCREEN PRINTING (CURRENT) DRUG THERAPY 03/01/2016 CEE ALSTON MD [...] 03/01/2016 CEE ALSTON MD Ot Z79.899 OTHER SUPERVISOR SCREEN PRINTING (CURRENT) DRUG THERAPY 03/01/2016 SANDRA TANG Ot 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 03/01/2016 SANDRA TANG Ot Z79.899 OTHER SUPERVISOR SCREEN PRINTING (CURRENT) DRUG THERAPY 03/01/2016 CEE ALSTON MD Ot 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 03/01/2016 CEE ALSTON MD Ot Z51.81 ENCOUNTER FOR THERAPEUTIC DRUG LEVEL MON 03/01/2016 DARÍO BURROWS METEOROLOGIST LIAISON Ot 784.2 SWELLING IN HEAD NECK 03/01/2016 SHERRY ROGEL MD ([facility]) Ot Z02.71 ENCOUNTER FOR DISABILITY DETERMINATION 03/01/2016 DARÍO BURROWS METEOROLOGIST LIAISON Ot N64.4 MASTODYNIA 03/01/2016 DARÍO BURROWS METEOROLOGIST LIAISON Ot N63 UNSPECIFIED LUMP IN BREAST 03/01/2016 DARÍO BURROWS METEOROLOGIST LIAISON Ot R92.8 OTH ABN AND INCONCLUSIVE FINDINGS ON DX 03/01/2016 CEE ALSTON MD Ot C50.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 03/01/2016 CEE ALSTON MD Ot Z51.81 ENCOUNTER FOR THERAPEUTIC DRUG LEVEL MON 03/01/2016 CEE ALSTON MD Ot Z79.899 OTHER SUPERVISOR SCREEN PRINTING (CURRENT) DRUG THERAPY 03/01/2016 CEE ALSTON MD [...] Ot F31.9 BIPOLAR DISORDER, UNSPECIFIED 03/01/2016 SANDRA TANGP Ot I10 ESSENTIAL (PRIMARY) HYPERTENSION 03/01/2016 SANDRA TANG Ot J44.9 CHRONIC OBSTRUCTIVE PULMONARY DISEASE, U 03/01/2016 SANDRA TANG Ot Z17.1 ESTROGEN RECEPTOR NEGATIVE STATUS [ER-] 03/01/2016 SANDRA TANGP Ot Z68.35 BODY MASS INDEX (BMI) 35.0-35.9, ADULT 03/01/2016 SANDRA TANG Ot Z79.899 OTHER [facility] (CURRENT) DRUG THERAPY 03/01/2016 CEE ALSTON MD Ot 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 03/01/2016 CEE ALSTON MD Ot Z51.81 ENCOUNTER FOR THERAPEUTIC DRUG LEVEL MON 03/01/2016 CEE ALSTON MD Ot Z79.899 OTHER [facility] (CURRENT) DRUG THERAPY 03/01/2016 CEE ALSTON MD [...] 03/01/2016 CEE ALSTON MD Ot Z79.899 OTHER SUPERVISOR SCREEN PRINTING (CURRENT) DRUG THERAPY 03/01/2016 SANDRA TANG Ot 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 03/01/2016 SANDRA TANG Ot Z79.899 OTHER SUPERVISOR SCREEN PRINTING (CURRENT) DRUG THERAPY 03/01/2016 CEE ALSTON MD [...] MON 03/02/2016 ADE FOWLER Ot Z79.899 OTHER SUPERVISOR SCREEN PRINTING (CURRENT) DRUG THERAPY 03/02/2016 ADE FOWLER Ot Z51.81 ENCOUNTER FOR THERAPEUTIC DRUG LEVEL MON 03/02/2016 ADE FOWLER Ot Z79.899 OTHER [facility] (CURRENT) DRUG THERAPY 03/04/2016 ADE FOWLER Ot Z51.81 ENCOUNTER FOR THERAPEUTIC DRUG LEVEL MON 03/04/2016 ADE FOWLER Ot Z79.899 OTHER [facility] (CURRENT) DRUG THERAPY 03/04/2016 KAYLA MELENDEZ APRN Ot C50.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 03/04/2016 KAYLA MELENDEZ APRN Ot F17.210 NICOTINE DEPENDENCE, CIGARETTES, UNCOMPL 03/04/2016 KAYLA MELENDEZ METEOROLOGIST LIAISON Ot I10 ESSENTIAL (PRIMARY) HYPERTENSION 03/04/2016 KAYLA MELENDEZ APRN Ot J44.9 CHRONIC OBSTRUCTIVE PULMONARY DISEASE, U 03/04/2016 KAYLA MELENDEZ APRN Ot N61.0 MASTITIS WITHOUT ABSCESS 03/04/2016 KAYLA MELENDEZ APRN Ot Z79.899 OTHER SUPERVISOR SCREEN PRINTING (CURRENT) DRUG THERAPY 03/04/2016 KAYLA MELENDEZ APRN [...] 03/05/2016 KAYLA MELENDEZ APRN Ot Z79.899 OTHER SUPERVISOR SCREEN PRINTING (CURRENT) DRUG THERAPY 03/05/2016 KAYLA MELENDEZ APRN Ot Z90.11 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 03/07/2016 ADE FOWLER Ot Z51.81 ENCOUNTER FOR THERAPEUTIC DRUG LEVEL MON 03/07/2016 ADE FOWLER Ot Z79.899 OTHER [facility] (CURRENT) DRUG THERAPY 03/18/2016 ADE FOWLER Ot Z51.81 ENCOUNTER FOR THERAPEUTIC DRUG LEVEL MON 03/18/2016 ADE FOWLER Ot Z79.899 OTHER [facility] (CURRENT) DRUG THERAPY 04/19/2016 DARÍO BURROWS METEOROLOGIST LIAISON Ot 784.2 SWELLING IN HEAD NECK 04/19/2016 SHERRY ROGEL MD ([facility]) Ot Z02.71 ENCOUNTER FOR DISABILITY DETERMINATION 04/19/2016 BURROWSDARÍO Avelino METEOROLOGIST LIAISON Ot N64.4 MASTODYNIA 04/19/2016 DARÍO BURROWS METEOROLOGIST LIAISON Ot N63 UNSPECIFIED LUMP IN BREAST 04/19/2016 ROB BURROWSFER Avelino METEOROLOGIST LIAISON Ot R92.8 OTH ABN AND INCONCLUSIVE FINDINGS ON DX 04/19/2016 CEE ALSTON MD Ot C50.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 04/19/2016 CEE ALSTON MD Ot Z51.81 ENCOUNTER FOR THERAPEUTIC DRUG LEVEL MON 04/19/2016 CEE ALSTON MD Ot Z79.899 OTHER [facility] (CURRENT) DRUG THERAPY 04/19/2016 CEE ALSTON MD, Ot 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 04/19/2016 CEE ALSTON MD Ot R92.8 OTH ABN AND INCONCLUSIVE FINDINGS ON DX 04/19/2016 SANDRA TANGP Ot 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 04/19/2016 SANDRA TANG COMPUTER DISCOVERY TEACHER Ot E66.9 OBESITY, UNSPECIFIED 04/19/2016 SANDRA TANGP Ot E78.5 HYPERLIPIDEMIA, UNSPECIFIED 04/19/2016 SANDRA TANG COMPUTER DISCOVERY TEACHER Ot F17.210 NICOTINE DEPENDENCE, CIGARETTES, UNCOMPL 04/19/2016 SANDRA TANG COMPUTER DISCOVERY TEACHER Ot F31.9 BIPOLAR DISORDER, UNSPECIFIED 04/19/2016 SANDRA TANGP Ot I10 ESSENTIAL (PRIMARY) HYPERTENSION 04/19/2016 SANDRA TANGP Ot J44.9 CHRONIC OBSTRUCTIVE PULMONARY DISEASE, U 04/19/2016 SANDRA TANGP Ot Z17.1 ESTROGEN RECEPTOR NEGATIVE STATUS [ER-] 04/19/2016 SANDRA TANGP Ot Z68.35 BODY MASS INDEX (BMI) 35.0-35.9, ADULT 04/19/2016 SANDRA TANG COMPUTER DISCOVERY TEACHER Ot Z79.899 OTHER [facility] (CURRENT) DRUG THERAPY 04/19/2016 CEE ALSTON MD Ot 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 04/19/2016 CEE ALSTON MD Ot Z51.81 ENCOUNTER FOR THERAPEUTIC DRUG LEVEL MON 04/19/2016 CEE ALSTON MD Ot Z79.899 OTHER SUPERVISOR SCREEN PRINTING (CURRENT) DRUG THERAPY 04/19/2016 CEE ALSTON MD Ot 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 04/19/2016 CAM BRAGA MD Ot C50.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 04/19/2016 CAM BRAGA MD Ot Z01.818 ENCOUNTER FOR OTHER PREPROCEDURAL EXAMIN 04/19/2016 CEE ALSTON MD Ot 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 04/19/2016 CEE ALSTON MD Ot Z51.81 ENCOUNTER FOR THERAPEUTIC DRUG LEVEL MON 04/19/2016 CEE ALSTON MD Ot Z79.899 OTHER [facility] (CURRENT) DRUG THERAPY 04/19/2016 SANDRA TANG Ot 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 04/19/2016 SANDRA TANG Ot Z79.899 OTHER SUPERVISOR SCREEN PRINTING (CURRENT) DRUG THERAPY 04/19/2016 CEE ALSTON MD Ot 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 04/19/2016 CEE ALSTON MD Ot Z51.81 ENCOUNTER FOR THERAPEUTIC DRUG LEVEL MON 05/06/2016 EULOGIO BRAGA MD Ot C50.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 05/06/2016 EULOGIO BRAGA MD Ot E66.9 OBESITY, UNSPECIFIED 05/06/2016 EULOGIO BRAGA MD Ot E78.5 HYPERLIPIDEMIA, UNSPECIFIED 05/06/2016 EULOGIO BRAGA MD Ot F17.210 NICOTINE DEPENDENCE, CIGARETTES, UNCOMPL 05/06/2016 EULOGIO BRAGA MD Ot F31.9 BIPOLAR DISORDER, UNSPECIFIED 05/06/2016 EULOGIO BRAGA MD Ot I10 ESSENTIAL (PRIMARY) HYPERTENSION 05/06/2016 EULOGIO BRAGA MD, Ot J44.9 CHRONIC OBSTRUCTIVE PULMONARY DISEASE, U 05/06/2016 EULOGIO BRAGA MD Ot Z17.0 ESTROGEN RECEPTOR POSITIVE STATUS [ER+] 05/06/2016 EULOGIO BRAGA MD, Ot Z68.34 BODY MASS INDEX (BMI) 34.0-34.9, ADULT 05/06/2016 OMI MURRAY, EULOGIO Ot Z79.899 OTHER [facility] (CURRENT) DRUG THERAPY 05/06/2016 STORMY DARÍO A METEOROLOGIST LIAISON Ot 784.2 SWELLING IN HEAD NECK 05/06/2016 PEBBLES MURRAY, SHERRY You (U) Ot Z02.71 ENCOUNTER FOR DISABILITY DETERMINATION 05/06/2016 DARÍO BURROWS METEOROLOGIST LIAISON Ot N64.4 MASTODYNIA 05/06/2016 DARÍO BURROWS METEOROLOGIST LIAISON Ot N63 UNSPECIFIED LUMP IN BREAST 05/06/2016 DARÍO BURROWS METEOROLOGIST LIAISON Ot R92.8 OTH ABN AND INCONCLUSIVE FINDINGS ON DX 05/06/2016 CEE ALSTON MD Ot C50.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 05/06/2016 CEE ALSTON MD Ot Z51.81 ENCOUNTER FOR THERAPEUTIC DRUG LEVEL MON 05/06/2016 CEE ALSTON MD Ot Z79.899 OTHER SUPERVISOR SCREEN PRINTING (CURRENT) DRUG THERAPY 05/06/2016 CEE ALSTON MD Ot 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 05/06/2016 CEE ALSTON MD Ot R92.8 OTH ABN AND INCONCLUSIVE FINDINGS ON DX 05/06/2016 SANDRA TANG Ot 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 05/06/2016 SANDRA TANG COMPUTER DISCOVERY TEACHER Ot E66.9 OBESITY, UNSPECIFIED 05/06/2016 SANDRA TANG COMPUTER DISCOVERY TEACHER Ot E78.5 HYPERLIPIDEMIA, UNSPECIFIED 05/06/2016 SANDRA TANG COMPUTER DISCOVERY TEACHER Ot F17.210 NICOTINE DEPENDENCE, CIGARETTES, UNCOMPL 05/06/2016 SANDRA TANG COMPUTER DISCOVERY TEACHER Ot F31.9 BIPOLAR DISORDER, UNSPECIFIED 05/06/2016 SANDRA TANG COMPUTER DISCOVERY TEACHER Ot I10 ESSENTIAL (PRIMARY) HYPERTENSION 05/06/2016 SANDRA TANGP Ot J44.9 CHRONIC OBSTRUCTIVE PULMONARY DISEASE, U 05/06/2016 SANDRA TANG COMPUTER DISCOVERY TEACHER Ot Z17.1 ESTROGEN RECEPTOR NEGATIVE STATUS [ER-] 05/06/2016 SANDRA TANG COMPUTER DISCOVERY TEACHER Ot Z68.35 BODY MASS INDEX (BMI) 35.0-35.9, ADULT 05/06/2016 SANDRA TANG COMPUTER DISCOVERY TEACHER Ot Z79.899 OTHER SUPERVISOR SCREEN PRINTING (CURRENT) DRUG THERAPY 05/06/2016 CEE ALSTON MD Ot 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 05/06/2016 CEE ALSTON MD Ot Z51.81 ENCOUNTER FOR THERAPEUTIC DRUG LEVEL MON 05/06/2016 CEE ALSTON MD Ot Z79.899 OTHER SUPERVISOR SCREEN PRINTING (CURRENT) DRUG THERAPY 05/06/2016 CEE ALSTON MD Ot 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 05/06/2016 CAM BRAGA MD Ot C50.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 05/06/2016 CAM BRAGA MD Ot Z01.818 ENCOUNTER FOR OTHER PREPROCEDURAL EXAMIN 05/06/2016 CEE ALSTON MD Ot 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 05/06/2016 CEE ALSTON MD Ot Z51.81 ENCOUNTER FOR THERAPEUTIC DRUG LEVEL MON 05/06/2016 CEE ALSTON MD Ot Z79.899 OTHER SUPERVISOR SCREEN PRINTING (CURRENT) DRUG THERAPY 05/06/2016 SANDRA TANG COMPUTER DISCOVERY TEACHER Ot 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 05/06/2016 SANDRA TANG Ot Z79.899 OTHER SUPERVISOR SCREEN PRINTING (CURRENT) DRUG THERAPY 05/06/2016 CEE ALSTON MD Ot 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 05/06/2016 CEE ALSTON MD Ot Z51.81 ENCOUNTER FOR THERAPEUTIC DRUG LEVEL MON 05/06/2016 EULOGIO BRAGA MD Ot C50.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 05/06/2016 EULOGIO BRAGA MD Ot E66.9 OBESITY, UNSPECIFIED 05/06/2016 EULOGIO BRAGA MD Ot E78.5 HYPERLIPIDEMIA, UNSPECIFIED 05/06/2016 EULOGIO BRAGA MD Ot F17.210 NICOTINE DEPENDENCE, CIGARETTES, UNCOMPL 05/06/2016 EULOGIO BRAGA MD Ot F31.9 BIPOLAR DISORDER, UNSPECIFIED 05/06/2016 EULOGIO BRAGA MD Ot I10 ESSENTIAL (PRIMARY) HYPERTENSION 05/06/2016 EULOGIO BRAGA MD Ot J44.9 CHRONIC OBSTRUCTIVE PULMONARY DISEASE, U 05/06/2016 EULOGIO BRAGA MD, Ot Z17.0 ESTROGEN RECEPTOR POSITIVE STATUS [ER+] 05/06/2016 EULOGIO BRAGA MD, Ot Z68.34 BODY MASS INDEX (BMI) 34.0-34.9, ADULT 05/06/2016 EULOGIO BRAGA MD, Ot Z79.899 OTHER SUPERVISOR SCREEN PRINTING (CURRENT) DRUG THERAPY 05/24/2016 ADE FOWLER Ot Z51.81 ENCOUNTER FOR THERAPEUTIC DRUG LEVEL MON 05/24/2016 ADE FOWLER Ot Z79.899 OTHER SUPERVISOR SCREEN PRINTING (CURRENT) DRUG THERAPY 05/25/2016 EULOGIO BRAGA MD, Ot C50.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 05/25/2016 EULOGIO BRAGA MD, Ot E66.9 OBESITY, UNSPECIFIED 05/25/2016 EULOGIO BRAGA MD, Ot E78.5 HYPERLIPIDEMIA, UNSPECIFIED 05/25/2016 EULOGIO BRAGA MD, Ot F17.210 NICOTINE DEPENDENCE, CIGARETTES, UNCOMPL 05/25/2016 EULOGIO BRAGA MD, Ot F31.9 BIPOLAR DISORDER, UNSPECIFIED 05/25/2016 EULOGIO BRAGA MD Ot I10 ESSENTIAL (PRIMARY) HYPERTENSION 05/25/2016 EULOGIO BRAGA MD, Ot J44.9 CHRONIC OBSTRUCTIVE PULMONARY DISEASE, U 05/25/2016 EULOGIO BRAGA MD, Ot Z17.0 ESTROGEN RECEPTOR POSITIVE STATUS [ER+] 05/25/2016 EULOGIO BRAGA MD, Ot Z68.34 BODY MASS INDEX (BMI) 34.0-34.9, ADULT 05/25/2016 EULOGIO BRAGA MD, Ot Z79.899 OTHER [facility] (CURRENT) DRUG THERAPY 05/25/2016 ABAD MURRAY MD, Ot C50.919 MALIGNANT NEOPLASM OF UNSP SITE OF UNSPE 05/25/2016 ABAD MURRAY MD Ot F17.210 NICOTINE DEPENDENCE, CIGARETTES, UNCOMPL 05/25/2016 ABAD MURRAY MD Ot I10 ESSENTIAL (PRIMARY) HYPERTENSION 05/25/2016 ABAD MURRAY MD, Ot J44.1 CHRONIC OBSTRUCTIVE PULMONARY DISEASE W 05/25/2016 ABAD MURRAY MD Ot K21.9 GASTRO-ESOPHAGEAL REFLUX DISEASE WITHOUT 05/25/2016 GAULT MD, ABAD R Ot M06.9 RHEUMATOID ARTHRITIS, UNSPECIFIED 05/25/2016 ABAD MURRAY MD R Ot R07.89 OTHER CHEST PAIN 05/25/2016 ABAD MURRAY MD R Ot Z90.11 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 05/25/2016 ABAD MURRAY MD Ot Z90.12 ACQUIRED ABSENCE OF LEFT BREAST AND NIPP 05/26/2016 JANETH ADE Ot Z51.81 ENCOUNTER FOR THERAPEUTIC DRUG LEVEL MON 05/26/2016 JANETHADE Ot Z79.899 OTHER [facility] (CURRENT) DRUG THERAPY 05/26/2016 KARLIE ZHU MD Ot C50.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 05/26/2016 KARLIE ZHU MD Ot F17.210 NICOTINE DEPENDENCE, CIGARETTES, UNCOMPL 05/26/2016 KARLIE ZHU MD Ot I10 ESSENTIAL (PRIMARY) HYPERTENSION 05/26/2016 KARLIE ZHU MD Ot K62.5 HEMORRHAGE OF ANUS AND RECTUM 05/26/2016 KARLIE ZHU MD Ot R10.84 GENERALIZED ABDOMINAL PAIN 05/26/2016 KARLIE ZHU MD Ot R19.7 DIARRHEA, UNSPECIFIED 05/26/2016 KARLIE ZHU MD Ot Z79.899 OTHER [facility] (CURRENT) DRUG THERAPY 05/26/2016 KARLIE ZHU MD Ot Z90.13 ACQUIRED ABSENCE OF BILATERAL BREASTS AN 05/27/2016 KARLIE ZHU MD Ot C50.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 05/27/2016 KARLIE ZHU MD Ot F17.210 NICOTINE DEPENDENCE, CIGARETTES, UNCOMPL 05/27/2016 KARLIE ZHU MD Ot I10 ESSENTIAL (PRIMARY) HYPERTENSION 05/27/2016 KARLIE ZHU MD Ot K62.5 HEMORRHAGE OF ANUS AND RECTUM 05/27/2016 KARLIE ZHU MD Ot R10.84 GENERALIZED ABDOMINAL PAIN 05/27/2016 KARLIE ZHU MD Ot R19.7 DIARRHEA, UNSPECIFIED 05/27/2016 KARLIE ZHU MD Ot Z79.899 OTHER [facility] (CURRENT) DRUG THERAPY 05/27/2016 KARLIE ZHU MD Ot Z90.13 ACQUIRED ABSENCE OF BILATERAL BREASTS AN 06/28/2016 YANG ELKINS MD Ot B35.9 DERMATOPHYTOSIS, UNSPECIFIED 06/28/2016 YANG ELKINS MD Ot C50.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 06/28/2016 YANG ELKINS MD Ot C50.912 MALIGNANT NEOPLASM OF UNSPECIFIED SITE O 06/28/2016 YANG ELKINS MD Ot F17.210 NICOTINE DEPENDENCE, CIGARETTES, UNCOMPL 06/28/2016 YANG ELKINS MD Ot I10 ESSENTIAL (PRIMARY) HYPERTENSION 06/28/2016 YANG ELKINS MD Ot L03.313 CELLULITIS OF CHEST WALL 06/28/2016 YANG ELKINS MD Ot Z79.899 OTHER [facility] (CURRENT) DRUG THERAPY 06/28/2016 YANG ELKINS MD Ot Z90.13 ACQUIRED ABSENCE OF BILATERAL BREASTS AN 07/19/2016 EULOGIO BRAGA MD, Ot C50.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 07/19/2016 EULOGIO BRAGA MD Ot E66.9 OBESITY, UNSPECIFIED 07/19/2016 EULOGIO BRAGA MD Ot E78.5 HYPERLIPIDEMIA, UNSPECIFIED 07/19/2016 EULOGIO BRAGA MD Ot F17.210 NICOTINE DEPENDENCE, CIGARETTES, UNCOMPL 07/19/2016 EULOGIO BRAGA MD Ot F31.9 BIPOLAR DISORDER, UNSPECIFIED 07/19/2016 EULOGIO BRAGA MD Ot I10 ESSENTIAL (PRIMARY) HYPERTENSION 07/19/2016 EULOGIO BRAGA MD, Ot J44.9 CHRONIC OBSTRUCTIVE PULMONARY DISEASE, U 07/19/2016 EULOGIO BRAGA MD, Ot Z17.0 ESTROGEN RECEPTOR POSITIVE STATUS [ER+] 07/19/2016 EULOGIO BRAGA MD, Ot Z51.0 ENCOUNTER FOR ANTINEOPLASTIC RADIATION T 07/19/2016 EULOGIO BRAGA MD, Ot Z68.34 BODY MASS INDEX (BMI) 34.0-34.9, ADULT 07/19/2016 EULOGIO BRAGA MD, Ot Z79.899 OTHER SUPERVISOR SCREEN PRINTING (CURRENT) DRUG THERAPY 07/21/2016 XUN MD, PIRES-DENEEN Ot C50.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 07/21/2016 EULOGIO BRAGA MD Ot E66.9 OBESITY, UNSPECIFIED 07/21/2016 EULOGIO BRAGA MD Ot E78.5 HYPERLIPIDEMIA, UNSPECIFIED 07/21/2016 EULOGIO BRAGA MD Ot F17.210 NICOTINE DEPENDENCE, CIGARETTES, UNCOMPL 07/21/2016 EULOGIO BRAGA MD Ot F31.9 BIPOLAR DISORDER, UNSPECIFIED 07/21/2016 EULOGIO BRAGA MD Ot I10 ESSENTIAL (PRIMARY) HYPERTENSION 07/21/2016 EULOGIO BRAGA MD Ot J44.9 CHRONIC OBSTRUCTIVE PULMONARY DISEASE, U 07/21/2016 EULOGIO BRAGA MD Ot Z17.0 ESTROGEN RECEPTOR POSITIVE STATUS [ER+] 07/21/2016 EULOGIO BRAGA MD Ot Z68.34 BODY MASS INDEX (BMI) 34.0-34.9, ADULT 07/21/2016 EULOGIO BRAGA MD Ot Z79.899 OTHER SUPERVISOR SCREEN PRINTING (CURRENT) DRUG THERAPY 08/23/2016 EULOGIO BRAGA MD Ot C50.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 08/23/2016 EULOGIO BRAGA MD Ot E66.9 OBESITY, UNSPECIFIED 08/23/2016 ELUOGIO BRAGA MD Ot E78.5 HYPERLIPIDEMIA, UNSPECIFIED 08/23/2016 EULOGIO BRAGA MD Ot F17.210 NICOTINE DEPENDENCE, CIGARETTES, UNCOMPL 08/23/2016 EULOGIO BRAGA MD Ot F31.9 BIPOLAR DISORDER, UNSPECIFIED 08/23/2016 EULOGIO BRAGA MD Ot I10 ESSENTIAL (PRIMARY) HYPERTENSION 08/23/2016 OMI MURRAY, EULOGIO Ot J44.9 CHRONIC OBSTRUCTIVE PULMONARY DISEASE, U 08/23/2016 EULOGIO BRAGA MD Ot Z17.0 ESTROGEN RECEPTOR POSITIVE STATUS [ER+] 08/23/2016 EULOGIO BRAGA MD Ot Z68.34 BODY MASS INDEX (BMI) 34.0-34.9, ADULT 08/23/2016 EULOGIO BRAGA MD Ot Z79.899 OTHER SUPERVISOR SCREEN PRINTING (CURRENT) DRUG THERAPY 10/18/2016 EULOGIO BRAGA MD Ot C50.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 10/18/2016 EULOGIO BRAGA MD Ot E66.9 OBESITY, UNSPECIFIED 10/18/2016 UELOGIO BRAGA MD Ot E78.5 HYPERLIPIDEMIA, UNSPECIFIED 10/18/2016 EULOGIO BRAGA MD Ot F17.210 NICOTINE DEPENDENCE, CIGARETTES, UNCOMPL 10/18/2016 EULOGIO BRAGA MD Ot F31.9 BIPOLAR DISORDER, UNSPECIFIED 10/18/2016 EULOGIO BRAGA MD Ot I10 ESSENTIAL (PRIMARY) HYPERTENSION 10/18/2016 EULOGIO BRAGA MD, Ot J44.9 CHRONIC OBSTRUCTIVE PULMONARY DISEASE, U 10/18/2016 EULOGIO BRAGA MD Ot Z17.0 ESTROGEN RECEPTOR POSITIVE STATUS [ER+] 10/18/2016 EULOGIO BRAGA MD, Ot Z68.34 BODY MASS INDEX (BMI) 34.0-34.9, ADULT 10/18/2016 EULOGIO BRAGA MD Ot Z79.899 OTHER [facility] (CURRENT) DRUG THERAPY 12/29/2016 ADE FOWLER Ot Z51.81 ENCOUNTER FOR THERAPEUTIC DRUG LEVEL [facility] 12/29/2016 ADE FOWLER Ot Z79.899 OTHER [facility] (CURRENT) DRUG THERAPY 12/29/2016 EULOGIO BRAGA MD Ot C50.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 12/29/2016 EULOGIO BRAGA MD, Ot E66.9 OBESITY, UNSPECIFIED 12/29/2016 EULOGIO BRAGA MD Ot E78.5 HYPERLIPIDEMIA, UNSPECIFIED 12/29/2016 EULOGIO BRAGA MD Ot F17.210 NICOTINE DEPENDENCE, CIGARETTES, UNCOMPL 12/29/2016 EULOGIO BRAGA MD, Ot F31.9 BIPOLAR DISORDER, UNSPECIFIED 12/29/2016 EULOGIO BRAGA MD Ot I10 ESSENTIAL (PRIMARY) HYPERTENSION 12/29/2016 EULOGIO BRAGA MD, Ot J44.9 CHRONIC OBSTRUCTIVE PULMONARY DISEASE, U 12/29/2016 EULOGIO BRAGA MD Ot Z17.0 ESTROGEN RECEPTOR POSITIVE STATUS [ER+] 12/29/2016 EULOGIO BRAGA MD Ot Z68.34 BODY MASS INDEX (BMI) 34.0-34.9, ADULT 12/29/2016 EULOGIO BRAGA MD Ot Z79.899 OTHER [facility] (CURRENT) DRUG THERAPY 12/29/2016 JEFFREY BALL EMILY Pryor Ot C50.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 12/29/2016 JEFFREY BALL EMILY Pryor Ot C50.912 MALIGNANT NEOPLASM OF UNSPECIFIED SITE O 12/29/2016 JEFFREY BALL EMILY Pryor Ot C79.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 12/29/2016 JEFFREY BALL EMILY Pryor Ot E78.00 PURE HYPERCHOLESTEROLEMIA, UNSPECIFIED 12/29/2016 JEFFREY BALL EMILY K Ot F17.210 NICOTINE DEPENDENCE, CIGARETTES, UNCOMPL 12/29/2016 JEFFREY BALL EMILY K Ot F31.9 BIPOLAR DISORDER, UNSPECIFIED 12/29/2016 JEFFREY BALL EMILY K Ot F41.9 ANXIETY DISORDER, UNSPECIFIED 12/29/2016 JEFFREY BALL EMILY K Ot I10 ESSENTIAL (PRIMARY) HYPERTENSION 12/29/2016 JEFFREY BALL EMILY Pryor Ot J45.909 UNSPECIFIED ASTHMA, UNCOMPLICATED 12/29/2016 JEFFREY BALL EMILY Pryor Ot K21.9 GASTRO-ESOPHAGEAL REFLUX DISEASE WITHOUT 12/29/2016 JEFFREY BALL EMILY Konstantin Ot M06.9 RHEUMATOID ARTHRITIS, UNSPECIFIED 12/29/2016 JEFFREY BALL EMILY Pryor Ot R51 HEADACHE 12/29/2016 JEFFREY BALL EMILY Pryor Ot Z85.828 PERSONAL HISTORY OF OTHER MALIGNANT NEOP 12/29/2016 JEFFREY BALL EMILY Konstantin Ot Z87.59 PERSONAL HISTORY OF COMP OF PREG, CHLDBR 12/29/2016 JEFFREY DO EMILY Konstantin Ot Z90.13 ACQUIRED ABSENCE OF BILATERAL BREASTS AN 01/03/2017 EULOGIO BRAGA MD Ot C50.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 01/03/2017 EULOGIO BRAGA MD Ot E66.9 OBESITY, UNSPECIFIED 01/03/2017 EULOGIO BRAGA MD Ot E78.5 HYPERLIPIDEMIA, UNSPECIFIED 01/03/2017 EULOGIO BRAGA MD, Ot F17.210 NICOTINE DEPENDENCE, CIGARETTES, UNCOMPL 01/03/2017 EULOGIO BRAGA MD, Ot F31.9 BIPOLAR DISORDER, UNSPECIFIED 01/03/2017 EULOGIO BRAGA MD Ot I10 ESSENTIAL (PRIMARY) HYPERTENSION 01/03/2017 EULOGIO BRAGA MD, Ot J44.9 CHRONIC OBSTRUCTIVE PULMONARY DISEASE, U 01/03/2017 EULOGIO BRAGA MD Ot Z17.0 ESTROGEN RECEPTOR POSITIVE STATUS [ER+] 01/03/2017 EULOGIO BRAGA MD Ot Z51.0 ENCOUNTER FOR ANTINEOPLASTIC RADIATION T 01/03/2017 EULOGIO BRAGA MD Ot Z68.34 BODY MASS INDEX (BMI) 34.0-34.9, ADULT 01/03/2017 EULOGIO BRAGA MD Ot Z79.899 OTHER SUPERVISOR SCREEN PRINTING (CURRENT) DRUG THERAPY 01/07/2017 KAYLA MELENDEZ APRN Ot E78.00 PURE HYPERCHOLESTEROLEMIA, UNSPECIFIED 01/07/2017 KAYLA MELENDEZ APRN Ot F31.9 BIPOLAR DISORDER, UNSPECIFIED 01/07/2017 KAYLA MELENDEZ APRN Ot F41.9 ANXIETY DISORDER, UNSPECIFIED 01/07/2017 KAYLA MELENDEZ APRN Ot I10 ESSENTIAL (PRIMARY) HYPERTENSION 01/07/2017 KAYLA MELENDEZ APRN Ot J45.909 UNSPECIFIED ASTHMA, UNCOMPLICATED 01/07/2017 KAYLA MELENDEZ APRN Ot K21.9 GASTRO-ESOPHAGEAL REFLUX DISEASE WITHOUT 01/07/2017 KAYLA MELENDEZ APRN Ot M06.9 RHEUMATOID ARTHRITIS, UNSPECIFIED 01/07/2017 KAYLA MELENDEZ APRN Ot R11.2 NAUSEA WITH VOMITING, UNSPECIFIED 01/07/2017 KAYLA MELENDEZ APRN Ot Z87.59 PERSONAL HISTORY OF COMP OF PREG, CHLDBR 01/07/2017 KAYLA MELENDEZ APRN Ot Z92.21 PERSONAL HISTORY OF ANTINEOPLASTIC CHEMO 01/07/2017 KAYLA MELENDEZ APRN Ot Z92.3 PERSONAL HISTORY OF IRRADIATION 01/14/2017 KAYLA MELENDEZ APRN Ot E78.00 PURE HYPERCHOLESTEROLEMIA, UNSPECIFIED 01/14/2017 KAYLA MELENDEZ APRN Ot F31.9 BIPOLAR DISORDER, UNSPECIFIED 01/14/2017 KAYLA MELENDEZ APRN Ot F41.9 ANXIETY DISORDER, UNSPECIFIED 01/14/2017 KAYLA MELENDEZ APRN Ot I10 ESSENTIAL (PRIMARY) HYPERTENSION 01/14/2017 KAYLA MELENDEZ APRN Ot J45.909 UNSPECIFIED ASTHMA, UNCOMPLICATED 01/14/2017 KAYLA MELENDEZ APRN Ot K21.9 GASTRO-ESOPHAGEAL REFLUX DISEASE WITHOUT 01/14/2017 KAYLA MELENDEZ APRN Ot M06.9 RHEUMATOID ARTHRITIS, UNSPECIFIED 01/14/2017 KAYLA MELENDEZ APRN Ot R11.2 NAUSEA WITH VOMITING, UNSPECIFIED 01/14/2017 KAYLA MELENDEZ APRN Ot Z87.59 PERSONAL HISTORY OF COMP OF PREG, CHLDBR 01/14/2017 KAYLA MELENDEZ APRN Ot Z92.21 PERSONAL HISTORY OF ANTINEOPLASTIC CHEMO 01/14/2017 KAYLA MELENDEZ APRN Ot Z92.3 PERSONAL HISTORY OF IRRADIATION 01/21/2017 EULOGIO BRAGA MD, Ot C50.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 01/21/2017 EULOGIO BRAGA MD, Ot E66.9 OBESITY, UNSPECIFIED 01/21/2017 EULOGIO BRAGA MD, Ot E78.5 HYPERLIPIDEMIA, UNSPECIFIED 01/21/2017 EULOGIO BRAGA MD, Ot F17.210 NICOTINE DEPENDENCE, CIGARETTES, UNCOMPL 01/21/2017 EULOGIO BRAGA MD, Ot F31.9 BIPOLAR DISORDER, UNSPECIFIED 01/21/2017 EULOGIO BRAGA MD, Ot I10 ESSENTIAL (PRIMARY) HYPERTENSION 01/21/2017 EULOGIO BRAGA MD, Ot J44.9 CHRONIC OBSTRUCTIVE PULMONARY DISEASE, U 01/21/2017 EULOGIO BRAGA MD, Ot Z17.0 ESTROGEN RECEPTOR POSITIVE STATUS [ER+] 01/21/2017 EULOGIO BRAGA MD, Ot Z51.0 ENCOUNTER FOR ANTINEOPLASTIC RADIATION T 01/21/2017 EULOGIO BRAGA MD, Ot Z68.34 BODY MASS INDEX (BMI) 34.0-34.9, ADULT 01/21/2017 EULOGIO BRAGA MD, Ot Z79.899 OTHER [facility] (CURRENT) DRUG THERAPY Procedures There is no data. Results Test Result Range Capillary blood glucose measurement by glucometer (mass/volume) - 02/16/16 11: 54 Capillary blood glucose measurement by glucometer (mass/volume) 91 mg/dL 70-110 Complete blood count (CBC) with automated white blood cell (WBC) differential - 03/01/16 10:26 Blood leukocytes automated count (number/volume) 8.4 10*3/uL 4.3-11.0 Blood erythrocytes automated count (number/volume) 4.73 10*6/uL 4.35-5.85 Venous blood hemoglobin measurement (mass/volume) 13.7 [...] Automated blood platelet mean volume measurement 9.9 [foz_us] 7.4-10.4 Automated blood neutrophils/100 leukocytes 67 % [...] Serum or plasma sodium measurement (moles/volume) 137 mmol/L 135-145 Serum or plasma potassium measurement (moles/volume) 4.7 mmol/L 3.6-5.0 Serum or plasma chloride measurement (moles/volume) 104 mmol/L 98-107 Carbon dioxide 27 mmol/L 21-32 Serum or plasma anion gap determination (moles/volume) 6 mmol/L 5-14 Serum or plasma urea nitrogen measurement (mass/volume) 18 mg/dL 7-18 Serum or plasma creatinine measurement (mass/volume) 0.77 mg/dL 0.60-1.30 Serum or plasma urea nitrogen/creatinine mass [...] Serum or plasma cholesterol measurement (mass/volume) 208 mg/dL < 200 Serum or plasma cholesterol in HDL measurement (mass/volume) 54 mg/ dL 40-60 Cholesterol in LDL [mass/volume] in serum or plasma by direct assay 142 mg/dL 1-129 Serum or plasma cholesterol in VLDL measurement (mass/volume) 27 mg/ dL 5-40 THYROID STIMULATING HORMONE - 03/01/16 10:26 THYROID STIMULATING HORMONE 2.44 u[iU]/mL 0.35-4.94 Valproic acid - 03/01/16 10:26 Valproic acid 17.9 ug/mL 50.0-100.0 Influenza virus A and B antigen detection - 05/24/16 19:25 FLU RESULT NEGATIVE FOR INFLUENZA A AND B ANTIGENS BY [facility] Bacterial blood culture - 05/24/16 19:47 Bacterial blood culture [facility] Complete blood count (CBC) with automated white blood cell (WBC) differential - 05/24/16 19:58 Blood leukocytes automated count (number/volume) 11.4 10*3/uL 4.3-11.0 Blood erythrocytes automated count (number/volume) 4.74 10*6/uL 4.35-5.85 Venous blood hemoglobin measurement (mass/volume) 13.8 g/dL 11.5-16.0 Blood hematocrit (volume fraction) 43 % 35-52 Automated erythrocyte mean corpuscular volume 90 [foz_us] 80-99 Automated erythrocyte mean corpuscular hemoglobin (mass per erythrocyte) 29 pg 25-34 Automated erythrocyte mean corpuscular hemoglobin concentration measurement ( mass/volume) 33 g/dL 32-36 Automated erythrocyte distribution width ratio 13.9 % 10.0-14.5 Automated blood platelet count (count/volume) 161 10*3/uL 130-400 Automated blood platelet mean volume measurement 9.9 [foz_us] 7.4-10.4 Automated blood neutrophils/100 leukocytes 85 % 42-75 Automated blood lymphocytes/100 leukocytes 6 % 12-44 Blood monocytes/100 leukocytes 9 % 0-12 Automated blood eosinophils/100 leukocytes 0 % 0-10 Automated blood basophils/100 leukocytes 0 % 0-10 Blood neutrophils automated count (number/volume) 9.7 10*3 1.8-7.8 Blood lymphocytes automated count (number/volume) 0.7 10*3 1.0-4.0 Blood monocytes automated count (number/volume) 1.0 10*3 0.0-1.0 Automated eosinophil count 0.0 10*3/uL 0.0-0.3 Automated blood basophil count (count/volume) 0.0 10*3/uL 0.0-0.1 PT panel in platelet poor plasma by coagulation assay - 05/24/16 19:58 Prothrombin time (PT) in platelet poor plasma by coagulation assay 11.8 s 12.2-14.7 INR in platelet poor plasma or blood by coagulation assay 0.9 0.8-1.4 Activated partial thromboplastin time (aPTT) in platelet poor plasma bycoagulation assay - 05/24/16 19:58 Activated partial thromboplastin time (aPTT) in platelet poor plasma bycoagulation assay 26 s 24-35 Blood lactic acid measurement (moles/volume) - 05/24/16 19:58 Blood lactic acid measurement (moles/volume) 0.79 mmol/L 0.50-2.00 Comprehensive metabolic panel - 05/24/16 19:58 Serum or plasma sodium measurement (moles/volume) 137 mmol/L 135-145 Serum or plasma potassium measurement (moles/volume) 3.8 mmol/L 3.6-5.0 Serum or plasma chloride measurement (moles/volume) 103 mmol/L 98-107 Carbon dioxide 23 mmol/L 21-32 Serum or plasma anion gap determination (moles/volume) 11 mmol/L 5-14 Serum or plasma urea nitrogen measurement (mass/volume) 17 mg/dL 7-18 Serum or plasma creatinine measurement (mass/volume) 0.77 mg/dL 0.60-1.30 Serum or plasma urea nitrogen/creatinine mass ratio 22 NRG Serum or plasma creatinine measurement with calculation of estimated glomerular filtration rate > NRG Serum or plasma glucose measurement (mass/volume) 115 mg/dL 70-105 Serum or plasma calcium measurement (mass/volume) 9.2 mg/dL 8.5-10.1 Serum or plasma total bilirubin measurement (mass/volume) 0.3 mg/dL 0.1-1.0 Serum or plasma alkaline phosphatase measurement (enzymatic activity/volume) 65 U/L 40-136 Serum or plasma aspartate aminotransferase measurement (enzymatic activity/ volume) 11 U/L 5-34 Serum or plasma alanine aminotransferase measurement (enzymatic activity/volume ) 13 U/L 0-55 Serum or plasma protein measurement (mass/volume) 7.5 g/dL 6.4-8.2 Serum or plasma albumin measurement (mass/volume) 3.9 g/dL 3.2-4.5 Magnesium - 05/24/16 19:58 Magnesium 1.9 mg/dL 1.8-2.4 Blood manual differential performed detection - 05/24/16 19:58 Blood monocytes/100 leukocytes 4 % NRG Manual blood segmented neutrophils/100 leukocytes 83 % NRG Blood band neutrophils/100 leukocytes 5 % NRG Manual blood lymphocytes/100 leukocytes 8 % NRG Manual eosinophils/100 leukocytes in nose 0 % NRG Manual blood basophils/100 leukocytes 0 % NRG Blood erythrocyte morphology finding identification NORMAL NRG Serum or plasma troponin i.cardiac measurement (mass/volume) - 05/24/16 19:58 Serum or plasma troponin i.cardiac measurement (mass/volume) < ng/ mL <0.30 Myoglobin, serum - 05/24/16 19:58 Myoglobin, serum 16.5 ng/mL 10.0-92.0 Valproic acid - 05/24/16 19:58 Valproic acid 50.9 ug/mL 50.0-100.0 Bacterial blood culture - 05/24/16 19:58 Bacterial blood culture NG NRG Complete urinalysis with reflex to culture - 05/24/16 20:59 Urine color determination YELLOW NRG Urine clarity determination CLEAR NRG Urine pH measurement by test strip 6 5-9 Specific gravity of urine by test strip 1.015 1.016- 1.022 Urine protein assay by test strip, semi-quantitative 2+ NEGATIVE Urine glucose detection by automated test strip NEGATIVE NEGATIVE Erythrocytes detection in urine sediment by light microscopy 4+ NEGATIVE Urine ketones detection by automated test strip NEGATIVE NEGATIVE Urine nitrite detection by test strip NEGATIVE NEGATIVE Urine total bilirubin detection by test strip NEGATIVE NEGATIVE Urine urobilinogen measurement by automated test strip (mass/volume) NORMAL NORMAL Urine leukocyte esterase detection by dipstick 2+ NEGATIVE Automated urine sediment erythrocyte count by microscopy (number/high power field) [HPF] NRG Automated urine sediment leukocyte count by microscopy (number/high power field ) [HPF] NRG Bacteria detection in urine sediment by light microscopy FEW NRG Squamous epithelial cells detection in urine sediment by light microscopy 2-5 NRG Crystals detection in urine sediment by light microscopy NONE NRG Casts detection in urine sediment by light microscopy NONE NRG Mucus detection in urine sediment by light microscopy SMALL NRG Complete urinalysis with reflex to culture YES NRG Bacterial urine culture - 05/24/16 20:59 Bacterial urine culture [id number] NRG COLONY COUNT >100,000/ML NRG FTX;REPORTABLE PLUS, NRG FREE TEXT ENTRY 2 MIXED GRAM POSITVES <10,000/ML NRG Complete blood count (CBC) with automated white blood cell (WBC) differential - 05/25/16 04:30 Blood leukocytes automated count (number/volume) 10.3 10*3/uL 4.3-11.0 Blood erythrocytes automated count (number/volume) 4.38 10*6/uL 4.35-5.85 Venous blood hemoglobin measurement (mass/volume) 12.7 g/dL 11.5-16.0 Blood hematocrit (volume fraction) 39 % 35-52 Automated erythrocyte mean corpuscular volume 90 [foz_us] 80-99 Automated erythrocyte mean corpuscular hemoglobin (mass per erythrocyte) 29 pg 25-34 Automated erythrocyte mean corpuscular hemoglobin concentration measurement ( mass/volume) 32 g/dL 32-36 Automated erythrocyte distribution width ratio 13.8 % 10.0-14.5 Automated blood platelet count (count/volume) 151 10*3/uL 130-400 Automated blood platelet mean volume measurement 10.0 [foz_us] 7.4-10.4 Automated blood neutrophils/100 leukocytes 95 % 42-75 Automated blood lymphocytes/100 leukocytes 3 % 12-44 Blood monocytes/100 leukocytes 2 % 0-12 Automated blood eosinophils/100 leukocytes 0 % 0-10 Automated blood basophils/100 leukocytes 0 % 0-10 Blood neutrophils automated count (number/volume) 9.8 10*3 1.8-7.8 Blood lymphocytes automated count (number/volume) 0.3 10*3 1.0-4.0 Blood monocytes automated count (number/volume) 0.2 10*3 0.0-1.0 Automated eosinophil count 0.0 10*3/uL 0.0-0.3 Automated blood basophil count (count/volume) 0.0 10*3/uL 0.0-0.1 Comprehensive metabolic panel - 05/25/16 04:30 Serum or plasma sodium measurement (moles/volume) 138 mmol/L 135-145 Serum or plasma potassium measurement (moles/volume) 4.1 mmol/L 3.6-5.0 Serum or plasma chloride measurement (moles/volume) 105 mmol/L 98-107 Carbon dioxide 22 mmol/L 21-32 Serum or plasma anion gap determination (moles/volume) 11 mmol/L 5-14 Serum or plasma urea nitrogen measurement (mass/volume) 15 mg/dL 7-18 Serum or plasma creatinine measurement (mass/volume) 0.77 mg/dL 0.60-1.30 Serum or plasma urea nitrogen/creatinine mass ratio 19 NRG Serum or plasma creatinine measurement with calculation of estimated glomerular filtration rate > NRG Serum or plasma glucose measurement (mass/volume) 267 mg/dL 70-105 Serum or plasma calcium measurement (mass/volume) 9.1 mg/dL 8.5-10.1 Serum or plasma total bilirubin measurement (mass/volume) 0.3 mg/dL 0.1-1.0 Serum or plasma alkaline phosphatase measurement (enzymatic activity/volume) 60 U/L 40-136 Serum or plasma aspartate aminotransferase measurement (enzymatic activity/ volume) 10 U/L 5-34 Serum or plasma alanine aminotransferase measurement (enzymatic activity/volume ) 11 U/L 0-55 Serum or plasma protein measurement (mass/volume) 7.0 g/dL 6.4-8.2 Serum or plasma albumin measurement (mass/volume) 3.6 g/dL 3.2-4.5 Lipid 1996 panel - 05/25/16 04:30 Serum or plasma triglyceride measurement (mass/volume) 67 mg/dL <150 Serum or plasma cholesterol measurement (mass/volume) 184 mg/dL < 200 Serum or plasma cholesterol in HDL measurement (mass/volume) 57 mg/ dL 40-60 Cholesterol in LDL [mass/volume] in serum or plasma by direct assay 121 mg/dL 1-129 Serum or plasma cholesterol in VLDL measurement (mass/volume) 13 mg/ dL 5-40 Complete blood count (CBC) with automated white blood cell (WBC) differential - 05/26/16 13:34 Blood leukocytes automated count (number/volume) 14.9 10*3/uL 4.3-11.0 Blood erythrocytes automated count (number/volume) 3.97 10*6/uL 4.35-5.85 Venous blood hemoglobin measurement (mass/volume) 11.8 g/dL 11.5-16.0 Blood hematocrit (volume fraction) 36 % 35-52 Automated erythrocyte mean corpuscular volume 90 [foz_us] 80-99 Automated erythrocyte mean corpuscular hemoglobin (mass per erythrocyte) 30 pg 25-34 Automated erythrocyte mean corpuscular hemoglobin concentration measurement ( mass/volume) 33 g/dL 32-36 Automated erythrocyte distribution width ratio 13.9 % 10.0-14.5 Automated blood platelet count (count/volume) 184 10*3/uL 130-400 Automated blood platelet mean volume measurement 9.5 [foz_us] 7.4-10.4 Automated blood neutrophils/100 leukocytes 90 % 42-75 Automated blood lymphocytes/100 leukocytes 4 % 12-44 Blood monocytes/100 leukocytes 6 % 0-12 Automated blood eosinophils/100 leukocytes 0 % 0-10 Automated blood basophils/100 leukocytes 0 % 0-10 Blood neutrophils automated count (number/volume) 13.3 10*3 1.8-7.8 Blood lymphocytes automated count (number/volume) 0.6 10*3 1.0-4.0 Blood monocytes automated count (number/volume) 0.9 10*3 0.0-1.0 Automated eosinophil count 0.0 10*3/uL 0.0-0.3 Automated blood basophil count (count/volume) 0.0 10*3/uL 0.0-0.1 Blood manual differential performed detection - 05/26/16 13:34 Blood monocytes/100 leukocytes 7 % NRG Manual blood segmented neutrophils/100 leukocytes 84 % NRG Blood band neutrophils/100 leukocytes 4 % NRG Manual blood lymphocytes/100 leukocytes 5 % NRG Manual eosinophils/100 leukocytes in nose 0 % [facility] Manual blood basophils/100 leukocytes 0 % [facility] Blood erythrocyte morphology finding identification NORMAL [facility] Comprehensive metabolic panel - 05/26/16 13:34 Serum or plasma sodium measurement (moles/volume) 138 mmol/L 135-145 Serum or plasma potassium measurement (moles/volume) 4.3 mmol/L 3.6-5.0 Serum or plasma chloride measurement (moles/volume) 107 mmol/L 98-107 Carbon dioxide 24 mmol/L 21-32 Serum or plasma anion gap determination (moles/volume) 7 mmol/L 5-14 Serum or plasma urea nitrogen measurement (mass/volume) 23 mg/dL 7-18 Serum or plasma creatinine measurement (mass/volume) 0.65 mg/dL 0.60-1.30 Serum or plasma urea nitrogen/creatinine mass ratio 35 NRG Serum or plasma creatinine measurement with calculation of estimated glomerular filtration rate > NRG Serum or plasma glucose measurement (mass/volume) 107 mg/dL 70-105 Serum or plasma calcium measurement (mass/volume) 8.6 mg/dL 8.5-10.1 Serum or plasma total bilirubin measurement (mass/volume) 0.2 mg/dL 0.1-1.0 Serum or plasma alkaline phosphatase measurement (enzymatic activity/volume) 55 U/L 40-136 Serum or plasma aspartate aminotransferase measurement (enzymatic activity/ volume) 16 U/L 5-34 Serum or plasma alanine aminotransferase measurement (enzymatic activity/volume ) 15 U/L 0-55 Serum or plasma protein measurement (mass/volume) 6.8 g/dL 6.4-8.2 Serum or plasma albumin measurement (mass/volume) 3.6 g/dL 3.2-4.5 Complete blood count (CBC) with automated white blood cell (WBC) differential - 06/28/16 09:14 Blood leukocytes automated count (number/volume) 5.0 10*3/uL 4.3-11.0 Blood erythrocytes automated count (number/volume) 4.65 10*6/uL 4.35-5.85 Venous blood hemoglobin measurement (mass/volume) 13.7 g/dL 11.5-16.0 Blood hematocrit (volume fraction) 42 % 35-52 Automated erythrocyte mean corpuscular volume 90 [foz_us] 80-99 Automated erythrocyte mean corpuscular hemoglobin (mass per erythrocyte) 30 pg 25-34 Automated erythrocyte mean corpuscular hemoglobin concentration measurement ( mass/volume) 33 g/dL 32-36 Automated erythrocyte distribution width ratio 15.3 % 10.0-14.5 Automated blood platelet count (count/volume) 178 10*3/uL 130-400 Automated blood platelet mean volume measurement 8.8 [foz_us] 7.4-10.4 Automated blood neutrophils/100 leukocytes 69 % 42-75 Automated blood lymphocytes/100 leukocytes 19 % 12-44 Blood monocytes/100 leukocytes 11 % 0-12 Automated blood eosinophils/100 leukocytes 1 % 0-10 Automated blood basophils/100 leukocytes 0 % 0-10 Blood neutrophils automated count (number/volume) 3.5 10*3 1.8-7.8 Blood lymphocytes automated count (number/volume) 1.0 10*3 1.0-4.0 Blood monocytes automated count (number/volume) 0.5 10*3 0.0-1.0 Automated eosinophil count 0.1 10*3/uL 0.0-0.3 Automated blood basophil count (count/volume) 0.0 10*3/uL 0.0-0.1 Whole blood basic metabolic panel - 06/28/16 09:14 Serum or plasma sodium measurement (moles/volume) 140 mmol/L 135-145 Serum or plasma potassium measurement (moles/volume) 3.8 mmol/L 3.6-5.0 Serum or plasma chloride measurement (moles/volume) 108 mmol/L 98-107 Carbon dioxide 24 mmol/L 21-32 Serum or plasma anion gap determination (moles/volume) 8 mmol/L 5-14 Serum or plasma urea nitrogen measurement (mass/volume) 13 mg/dL 7-18 Serum or plasma creatinine measurement (mass/volume) 0.60 mg/dL 0.60-1.30 Serum or plasma urea nitrogen/creatinine mass ratio 22 NRG Serum or plasma creatinine measurement with calculation of estimated glomerular filtration rate > NRG Serum or plasma glucose measurement (mass/volume) 88 mg/dL 70-105 Serum or plasma calcium measurement (mass/volume) 9.1 mg/dL 8.5-10.1 Serum or plasma C reactive protein measurement (mass/volume) - 06/28/16 09:14 Serum or plasma C reactive protein measurement (mass/volume) 0.34 mg /dL 0.00-0.50 Complete blood count (CBC) with automated white blood cell (WBC) differential - 01/07/17 14:53 Blood leukocytes automated count (number/volume) 25.5 10*3/uL 4.3-11.0 Blood erythrocytes automated count (number/volume) 5.18 10*6/uL 4.35-5.85 Venous blood hemoglobin measurement (mass/volume) 15.5 g/dL 11.5-16.0 Blood hematocrit (volume fraction) 46 % 35-52 Automated erythrocyte mean corpuscular volume 88 [foz_us] 80-99 Automated erythrocyte mean corpuscular hemoglobin (mass per erythrocyte) 30 pg 25-34 Automated erythrocyte mean corpuscular hemoglobin concentration measurement ( mass/volume) 34 g/dL 32-36 Automated erythrocyte distribution width ratio 14.1 % 10.0-14.5 Automated blood platelet count (count/volume) 131 10*3/uL 130-400 Automated blood platelet mean volume measurement 10.2 [foz_us] 7.4-10.4 Automated blood neutrophils/100 leukocytes 95 % 42-75 Automated blood lymphocytes/100 leukocytes 2 % 12-44 Blood monocytes/100 leukocytes 3 % 0-12 Automated blood eosinophils/100 leukocytes 0 % 0-10 Automated blood basophils/100 leukocytes 0 % 0-10 Blood neutrophils automated count (number/volume) 24.2 10*3 1.8-7.8 Blood lymphocytes automated count (number/volume) 0.4 10*3 1.0-4.0 Blood monocytes automated count (number/volume) 0.8 10*3 0.0-1.0 Automated eosinophil count 0.0 10*3/uL 0.0-0.3 Automated blood basophil count (count/volume) 0.1 10*3/uL 0.0-0.1 Blood manual differential performed detection - 01/07/17 14:53 Blood monocytes/100 leukocytes 4 % NRG Manual blood segmented neutrophils/100 leukocytes 90 % NRG Blood band neutrophils/100 leukocytes 4 % NRG Manual blood lymphocytes/100 leukocytes 2 % NRG Manual eosinophils/100 leukocytes in nose 0 % NRG Manual blood basophils/100 leukocytes 0 % NRG Blood erythrocyte morphology finding identification NORMAL NR Comprehensive metabolic panel - 01/07/17 14:53 Serum or plasma sodium measurement (moles/volume) 133 mmol/L 135-145 Serum or plasma potassium measurement (moles/volume) 4.3 mmol/L 3.6-5.0 Serum or plasma chloride measurement (moles/volume) 94 mmol/L 98-107 Carbon dioxide 29 mmol/L 21-32 Serum or plasma anion gap determination (moles/volume) 10 mmol/L 5-14 Serum or plasma urea nitrogen measurement (mass/volume) 29 mg/dL 7-18 Serum or plasma creatinine measurement (mass/volume) 0.67 mg/dL 0.60-1.30 Serum or plasma urea nitrogen/creatinine mass ratio 43 NRG Serum or plasma creatinine measurement with calculation of estimated glomerular filtration rate > NRG Serum or plasma glucose measurement (mass/volume) 162 mg/dL 70-105 Serum or plasma calcium measurement (mass/volume) 8.5 mg/dL 8.5-10.1 Serum or plasma total bilirubin measurement (mass/volume) 0.4 mg/dL 0.1-1.0 Serum or plasma alkaline phosphatase measurement (enzymatic activity/volume) 64 U/L 40-136 Serum or plasma aspartate aminotransferase measurement (enzymatic activity/ volume) 12 U/L 5-34 Serum or plasma alanine aminotransferase measurement (enzymatic activity/volume ) 36 U/L 0-55 Serum or plasma protein measurement (mass/volume) 6.7 g/dL 6.4-8.2 Serum or plasma albumin measurement (mass/volume) 3.7 g/dL 3.2-4.5 Lipase - 01/07/17 14:53 Lipase 58 U/L 8-78 Complete urinalysis with reflex to culture - 01/07/17 17:15 Urine color determination YELLOW NRG Urine clarity determination CLEAR NRG Urine pH measurement by test strip 7 5-9 Specific gravity of urine by test strip 1.010 1.016- 1.022 Urine protein assay by test strip, semi-quantitative NEGATIVE NEGATIVE Urine glucose detection by automated test strip NEGATIVE NEGATIVE Erythrocytes detection in urine sediment by light microscopy NEGATIVE NEGATIVE Urine ketones detection by automated test strip NEGATIVE NEGATIVE Urine nitrite detection by test strip NEGATIVE NEGATIVE Urine total bilirubin detection by test strip NEGATIVE NEGATIVE Urine urobilinogen measurement by automated test strip (mass/volume) NORMAL NORMAL Urine leukocyte esterase detection by dipstick 2+ NEGATIVE Automated urine sediment erythrocyte count by microscopy (number/high power field) RARE NRG Automated urine sediment leukocyte count by microscopy (number/high power field ) RARE NRG Bacteria detection in urine sediment by light microscopy NEGATIVE NRG Squamous epithelial cells detection in urine sediment by light microscopy 2-5 NRG Crystals detection in urine sediment by light microscopy NONE NRG Casts detection in urine sediment by light microscopy NONE NRG Mucus detection in urine sediment by light microscopy NEGATIVE NRG Complete urinalysis with reflex to culture NO NRG Encounters ACCT No. Visit Date/Time Discharge Status Pt. Type Provider Facility Loc./Unit Complaint [id number] 01/12/2017 09:52:00 01/12/2017 23:59:59 CLS Outpatient EULOGIO BRAGA MD Via [facility] ONC [id number] 01/07/2017 14:47:00 01/07/2017 18:14:00 DIS Emergency KAYLA MELENDEZ APRN Via [facility] ER N/V [id number] 12/29/2016 09:50:00 12/29/2016 11:15:00 DIS Emergency JEFFREY DOEMILY K [facility] ER MIGRAINES,NOSEBLEEDS [id number] 07/20/2016 15:28:00 10/18/2016 00:01:00 DIS Outpatient EULOGIO BRAGA MD [facility] ONC [id number] 06/28/2016 08:24:00 06/28/2016 10:05:00 DIS Emergency SEVERO MURRAY, YANG Nassar Via [facility] ER BREAST AREA PAIN/ BLISTED/BLEEDING FROM RADIATION [id number] 06/24/2016 09:48:00 06/24/2016 23:59:59 CLS Outpatient EULOGIO BRAGA MD [facility] ONC [id number] 05/26/2016 12:42:00 05/26/2016 15:18:00 DIS Emergency KARLIE ZHU MD [facility] ER RECTAL BLEEDING/PAIN [id number] 05/24/2016 20:35:00 05/25/2016 13:15:00 DIS Inpatient TERRI MURRAY, ABAD Cifuentes [facility] 4TH FEVER,BRONCHITIS,HYPOXIA, BREAST CA-ON CHEMO AND RA [id number] 03/04/2016 10:37:00 03/04/2016 11:16:00 DIS Emergency KAYLA MELENDEZ APRN [facility] ER PAIN/SWELLING RIGHT BREAST AREA [id number] 03/01/2016 10:03:00 03/01/2016 23:59:59 CLS Outpatient ADE FOWLER [facility] LAB [id number] 02/16/2016 08:21:00 02/16/2016 12:11:00 DIS Emergency EDIL QURESHI [facility] ER ANXIETY, NEEDING PORT FLUSHED [id number] 05/13/2015 08:02:00 07/30/2015 00:01:00 DIS Outpatient CEE ALSTON MD [facility] ONC [id number] 05/01/2015 11:17:00 05/01/2015 23:59:59 CLS Outpatient CEE ALSTON MD [facility] CARD BREAST CANCER [id number] 04/22/2015 11:06:00 04/22/2015 23:59:59 CLS Preadmit SANDRA TANG [facility] ONC [id number] 04/07/2015 10:59:00 04/14/2015 00:01:00 DIS Outpatient CEE ALSTON MD [facility] ONC [id number] 04/07/2015 11:51:00 04/07/2015 23:59:59 CLS Outpatient SANDRA TANG [facility] ONC [id number] 04/07/2015 11:17:00 04/07/2015 23:59:59 CLS Outpatient CEE ALSTON MD [facility] CARD BREAST CANCER [id number] 03/19/2015 08:29:00 03/19/2015 13:05:00 DIS Outpatient CAM BRAGA MD [facility] SDC RIGHT BREAST CANCER [id number] 03/17/2015 06:12:00 03/17/2015 23:59:59 CLS Outpatient CAM BRAGA MD [facility] PREOP RIGHT BREAST CANCER [id number] 02/17/2015 10:18:00 02/17/2015 23:59:59 CLS Outpatient CEE ALSTON MD [facility] 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 [id number] 01/24/2015 13:52:00 01/24/2015 23:59:59 CLS Outpatient CEE ALSTON MD [facility] CARD ENCOUNTER FOR MONITORING CARDIOTOXIC DRUGS [id number] 01/23/2015 14:18:00 01/23/2015 23:59:59 CLS Outpatient KITTY 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 [facility] ONC [id number] 01/23/2015 09:31:00 01/23/2015 23:59:59 CLS Outpatient CEE ALSTON MD [facility] RAD BREAST CA [id number] 01/22/2015 14:57:00 01/22/2015 23:59:59 CLS Outpatient CEE ALSTON MD [facility] RAD ABN MAMMO [id number] 01/17/2015 09:42:00 01/17/2015 23:59:59 CLS Outpatient CEE ALSTON MD [facility] CARD ENCOUNTER FOR MONITOR CARDIO TOXIC DRUG THERAPY [id number] 01/17/2015 09:38:00 01/17/2015 17:00:00 DIS Outpatient CAM BRAGA MD [facility] SDC BREAST CANCER [id number] 01/15/2015 13:52:00 01/15/2015 23:59:59 CLS Outpatient SHERRY ROGEL MD (DDU) [facility] RT DDU [id number] 01/15/2015 05:43:00 01/15/2015 23:59:59 CLS Outpatient CAM BRAGA MD [facility] PREOP [id number] 01/03/2015 07:05:00 01/03/2015 23:59:59 CLS Outpatient DARÍO BURROWS APRN [facility] RAD ABNORMAL MAMMO, BREAST MASS [id number] 01/01/2015 14:58:00 01/01/2015 23:59:59 CLS Outpatient DARÍO BURROWS APRN [facility] RAD BREAST PAIN RT BREAST [id number] 12/25/2014 16:08:00 12/25/2014 17:23:00 DIS Emergency KAYLA MELENDEZ APRN [facility] ER R BREAST SWELLING/ TENDERNESS [id number] 12/19/2014 08:51:00 12/19/2014 11:43:00 DIS Emergency REGINALDO ANNA MD [facility] ER COUGH/FEVER [id number] 11/21/2014 11:43:00 11/21/2014 13:07:00 DIS Emergency KAYLA MELENDEZ METEOROLOGIST LIAISON [facility] ER SOA [id number] 11/08/2014 14:38:00 11/08/2014 16:53:00 DIS Emergency REGINALDO ANNA MD [facility] ER SOA [id number] 10/28/2014 14:21:00 10/28/2014 23:59:59 [facility] Outpatient DARÍO BURROWS APRN Via [facility] RAD LOCALIZE SWELLING MASS OR HEAD 3 ABNORMAL GROWTHS [id number] 10/11/2014 09:35:00 10/11/2014 10:09:00 DIS Emergency REGINALOD ANNA MD [facility] ER RASH [id number] 09/27/2014 09:09:00 09/27/2014 10:19:00 DIS Emergency KARLIE ZHU MD [facility] ER
[2017-03-27 11:20] LABS: BASOPHILS % (AUTO) 1 % (0-10); EOSINOPHILS # (AUTO) 0.1 10^3/uL (0.0-0.3); EOSINOPHILS % (AUTO) 1 % (0-10); HEMATOCRIT 37 % (35-52); HEMOGLOBIN 12.8 G/DL (11.5-16.0); LYMPHOCYTES # (AUTO) 1.3 X 10^3 (1.0-4.0); LYMPHOCYTES % (AUTO) 24 % (12-44); MEAN CORPUSCULAR HEMOGLOBIN 33 PG (25-34); MEAN CORPUSCULAR HGB CONC 35 G/DL (32-36); MEAN CORPUSCULAR VOLUME 95 FL (80-99); MEAN PLATELET VOLUME 9.4 FL (7.4-10.4); MONOCYTES # (AUTO) 0.7 X 10^3 (0.0-1.0); MONOCYTES % (AUTO) 12 % (0-12); NEUTROPHILS # (AUTO) 3.5 X 10^3 (1.8-7.8); NEUTROPHILS % (AUTO) 63 % (42-75); PLATELET COUNT 168 10^3/uL (130-400); RED BLOOD COUNT 3.85 10^6/uL (4.35-5.85); RED CELL DISTRIBUTION WIDTH 19.5 % (10.0-14.5); WHITE BLOOD COUNT 5.5 10^3/uL (4.3-11.0)
[2017-03-27 11:41] LABS: ALANINE AMINOTRANSFERASE 13 U/L (0-55); ALBUMIN 3.7 GM/DL (3.2-4.5); ALKALINE PHOSPHATASE 47 U/L (40-136); BILIRUBIN,TOTAL 0.4 MG/DL (0.1-1.0); BUN/CREATININE RATIO 9; CALCIUM 9.4 MG/DL (8.5-10.1); CARBON DIOXIDE 24 MMOL/L (21-32); CHLORIDE 106 MMOL/L (98-107); CREATININE SERUM 0.66 MG/DL (0.60-1.30); GFR ESTIMATED > 60; GLUCOSE 99 MG/DL (70-105); POTASSIUM 3.9 MMOL/L (3.6-5.0); SODIUM 140 MMOL/L (135-145); TOTAL PROTEIN 6.3 GM/DL (6.4-8.2)
[2017-03-27] MEDS ORDERED: NS IV 1000 ML 1,000 ML IV ONE (11:49)
[2017-03-27] MEDS ORDERED: fentaNYL INJECTION 100 MCG/2 ML AMP IVP STA (11:49)
[2017-03-27] MEDS ORDERED: CATHETER FLUSH 10 ML SYR IV PRN (12:30)
[2017-03-27] MEDS ORDERED: IOHEXOL 350 MG/ML 100 ML (OMNIPAQUE 350) VIAL IV ONE (12:30)
[2017-03-27] MEDS ORDERED: NS 250 ML (IVPB) BAG IV ONE (12:30)
--- NOTE | 2017-03-27 12:45 | ED General ---
General Chief Complaint: Head/Cervical Problems Stated Complaint: BRAIN TUMOR/HEAD PAIN/L SIDE PAIN Nursing Triage Note: PT CO OF HEAD ACHE, STATES HAS BRAIN TUMOR, STATES HAD DARK STOOL THIS AM Nursing Sepsis Screen: No Definite Risk Source of Information: Patient Exam Limitations: No Limitations History of Present Illness Date Seen by Provider: Mar 27, 2017 Time Seen by Provider: 11:00 Initial Comments Here with report of headache that is left frontal and report of dark stool this morning. 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 She's had radiation therapy as well as chemotherapy for that since and is worried about the brain cancer. Also had the dark stools. She is not sure if that was blood but wanted to be sure that her blood counts were okay. After conversation, patient does admit that she's been eating cherries and that may have caused her stools to darken. States she is only on tramadol for pain due to her own personal choice. States that this is actually not covering her pain currently though. Timing/Duration: 12 Hours Severity: Moderate Associated Systoms: No Chest Pain, No Fever/Chills, Headaches, No Nausea/ Vomiting, No Shortness of Air Allergies and Home Medications Allergies Coded Allergies: No Known Drug Allergies (Unverified , 09/27/14) Home Medications Aripiprazole 5 Mg Tablet, 5 MG PO, (Reported) Desvenlafaxine Succinate 25 Mg Tab.er.24h, 25 MG PO, (Reported) Dexamethasone 4 Mg Tablet, 8 MG PO QID, #60 Prescribed by: EMILY MURPHY on 12/29/16 1114 Divalproex Sodium 500 Mg Tab.er.24h, 2,000 MG PO HS, (Reported) TAKES 4 (500MG) TABLETS Hydrocodone Bit/Acetaminophen 1 Tab Tab, 1-2 EACH PO Q6H PRN for PAIN-MODERATE, #20 Ref 0 Prescribed by: KARLIE ZHU on 03/27/17 1411 Lorazepam 1 Mg Tablet, 1 MG PO Q6H, #30 Prescribed by: EMILY MURPHY on 12/29/16 1114 Ondansetron 8 Mg Tab.rapdis, (Reported) Prochlorperazine Maleate 10 Mg Tablet, (Reported) Constitutional: see HPI, No chills, No fever EENTM: no symptoms reported Respiratory: no symptoms reported Cardiovascular: no symptoms reported Gastrointestinal: see HPI, No nausea, No vomiting Genitourinary: no symptoms reported Musculoskeletal: no symptoms reported All Other Systems Reviewed Negative Unless Noted: Yes Past Ljefmoi-Opttxp-Bothxb Hx Patient Social History Alcohol Use: Denies Use Recreational Drug Use: No Smoking Status: Current Everyday Smoker Type Used: Cigarettes Recent Foreign Travel: No Contact w/Someone Who Travel: No Recent Infectious Disease Expo: No Recent Hopitalizations: No Physical Abuse: No Sexual Abuse: No Immunizations Up To Date Tetanus Booster (TDap): Unknown Seasonal Allergies Seasonal Allergies: No Surgeries History of Surgeries: Yes (INFUSAPORT; BILATERAL MASTECTOMY) Surgeries: Breast, Section, Gallbladder, Vascular Surgery Respiratory History of Respiratory Disorde: Yes Respiratory Disorders: Asthma Cardiovascular History of Cardiac Disorders: Yes Cardiac Disorders: High Cholesterol, Hypertension Neurological History of Neurological Disord: No 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 System Hx 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: No (THROUGH MENOPAUSE) Sexually Transmitted Disease: No HIV/AIDS: No Female 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 Genitourinary History of Genitourinary Disor: No Gastrointestinal History of Gastrointestinal Di: Yes Gastrointestinal Disorders: Gastroesophageal Reflux Musculoskeletal History of Musculoskeletal Dis: Yes Musculoskeletal Disorders: Rheumatoid Arthritis, Chronic Back Pain Endocrine History of Endocrine Disorders: No HEENT History of HEENT Disorders: Yes (TEETH REMOVED) Loss of Vision: Denies Hearing Impairment: Denies Cancer History of Cancer: Yes Cancer: Skin, Breast Did You Recieve Any Treatments: Yes Type of Tx Receive: Chemotherapy, Radiation, Surgical Intervention Psychosocial History of Psychiatric Problem: Yes Behavioral Health Disorders: Anxiety, Bipolar, Personality Disorder, Depression Suicide Risk Score: 0 Integumentary History of Skin or Integumenta: No Blood Transfusions History of Blood Disorders: No Adverse Reaction to a Blood Tr: No (HAS HAD BLOOD WITH NO PROBLEM) Reviewed Nursing Assessment Reviewed/Agree w Nursing PMH: Yes Family Medical History Significant Family History: No Pertinent Family Hx Family Medial History: Not obtainable due to adoption (ADOPTION) Physical Exam Vital Signs Vital Signs - First Documented 03/27/17 10:40 Temp 97.9 Pulse 102 Resp 16 B/P (MAP) 134/85 (101) Pulse Ox 97 Capillary Refill : Less Than 3 Seconds General Appearance: No Apparent Distress, WD/WN HEENT: PERRL/EOMI, TMs Normal, Pharynx Normal Neck: Normal Inspection, Non Tender, Supple Respiratory: Lungs Clear, Normal Breath Sounds Cardiovascular: No Murmur, Tachycardia Gastrointestinal: Non Tender, Soft Genital/Rectal: Other (declined rectal exam) Back: Normal Inspection, No CVA Tenderness, No Vertebral Tenderness Extremity: Normal Range of Motion, Non Tender, No Calf Tenderness Neurologic/Psychiatric: Alert, Oriented x3 Skin: Normal Color, Warm/Dry Progress/Results/Core Measures Suspected Sepsis Recent Fever Within 48 Hours: No Infection Criteria Present: None New/Unexplained Altered Menta: No Sepsis Screen: No Definite Risk Sepsis Diagnosis: SIRS Temperature:97.9 Pulse: 102 Respiratory Rate: 16 Laboratory Tests 03/27/17 11:00: White Blood Count 5.5 Blood Pressure 134 /85 Mean: 101 Laboratory Tests 03/27/17 11:00: Creatinine 0.66, Platelet Count 168, Total Bilirubin 0.4 Results/Orders Lab Results Laboratory Tests Test 03/27/17 11:00 Range/Units White Blood Count 5.5 4.3-11.0 10^3/uL Red Blood Count 3.85 L 4.35-5.85 10^6/uL Hemoglobin 12.8 11.5-16.0 G/DL Hematocrit 37 35-52 % Mean Corpuscular Volume 95 80-99 FL Mean Corpuscular Hemoglobin 33 25-34 PG Mean Corpuscular Hemoglobin Concent 35 32-36 G/DL Red Cell Distribution Width 19.5 H 10.0-14.5 % Platelet Count 168 130-400 10^3/uL Mean Platelet Volume 9.4 7.4-10.4 FL Neutrophils (%) (Auto) 63 42-75 % Lymphocytes (%) (Auto) 24 12-44 % Monocytes (%) (Auto) 12 0-12 % Eosinophils (%) (Auto) 1 0-10 % Basophils (%) (Auto) 1 0-10 % Neutrophils # (Auto) 3.5 1.8-7.8 X 10^3 Lymphocytes # (Auto) 1.3 1.0-4.0 X 10^3 Monocytes # (Auto) 0.7 0.0-1.0 X 10^3 Eosinophils # (Auto) 0.1 0.0-0.3 10^3/uL Basophils # (Auto) 0.0 0.0-0.1 10^3/uL Sodium Level 140 135-145 MMOL/L Potassium Level 3.9 3.6-5.0 MMOL/L Chloride Level 106 98-107 MMOL/L Carbon Dioxide Level 24 21-32 MMOL/L Anion Gap 10 5-14 MMOL/L Blood Urea Nitrogen 6 L 7-18 MG/DL Creatinine 0.66 0.60-1.30 MG/DL Estimat Glomerular Filtration Rate > 60 BUN/Creatinine Ratio 9 Glucose Level 99 70-105 MG/DL Calcium Level 9.4 8.5-10.1 MG/DL Total Bilirubin 0.4 0.1-1.0 MG/DL Aspartate Amino Transf (AST/SGOT) 17 5-34 U/L Alanine Aminotransferase (ALT/SGPT) 13 0-55 U/L Alkaline Phosphatase 47 40-136 U/L Total Protein 6.3 L 6.4-8.2 GM/DL Albumin 3.7 3.2-4.5 GM/DL My Orders Orders - KARLIE ZHU MD Cbc With Automated Diff (03/27/17 10:51) Comprehensive Metabolic Panel (03/27/17 10:51) Saline Lock/Iv-Start (03/27/17 10:51) Saline Lock/Iv-Start (03/27/17 11:49) Ns Iv 1000 Ml (Sodium Chloride 0.9%) (03/27/17 11:49) Fentanyl Injection (Sublimaze Injection (03/27/17 11:49) Iohexol Injection (Omnipaque 350 Mg/Ml 1 (03/27/17 12:30) Sodium Chloride Flush (Catheter Flush Sy (03/27/17 12:30) Ns (Ivpb) (Sodium Chloride 0.9%) (03/27/17 12:30) Pharmacy Communication (Pharmacy Communi (03/27/17 12:21) Ct Head Wo (03/27/17 12:15) Medications Given in ED Current Medications Medications Dose Ordered Sig/Nilda Route Start Time Stop Time Status Last Admin Dose Admin Sodium Chloride 1,000 ml @ 0 mls/hr Q0M ONCE IV 03/27/17 11:49 03/27/17 11:50 DC 03/27/17 12:02 1,000 MLS/HR Vital Signs/I&O Vital Sign - Last 12Hours 03/27/17 10:40 Temp 97.9 Pulse 102 Resp 16 B/P (MAP) 134/85 (101) Pulse Ox 97 Capillary Refill : Less Than 3 Seconds Blood Pressure Mean: 101 Progress Note : Progress Note Seen and evaluated. IV via port access, with orders for labs, normal saline 1 L bolus and fentanyl 50 g IV. Patient has been eating quite a few cherries and the stool may be related to that. We will check labs and evaluate for blood loss. Patient would prefer to just leave it at that if possible and avoid rectal exam. CT head ordered with and without contrast that we will have to get IV access. 1300: Unable to get IV access and CT head without contrast will be done. Headache little better after fluids and medicines. 1400: Fluids complete and patient is feeling better. We will initiate outpatient treatment with stronger pain medicine. CT was reassuring as well as labs at this point. She has appointment on Tuesday and will keep that appointment and discuss further evaluation with her doctor. Discharged home with return precautions. Patient verbalize understanding instructions and agreement with plan. I did discuss the case with Dr. Murray who will follow-up as well. Diagnostic Imaging Diagonstic Imaging: CT Plain Films/CT/US/NM/MRI: head Comments NAME: CLARITA [facility]RIGUEZ [facility] REC#: [id number] PT STATUS: REG ER : 1965 PHYSICIAN: KARLIE ZHU MD ADMIT DATE: 03/27/17/ER Signed Date of Exam: 03/27/17 CT HEAD WO PROCEDURE: CT head without contrast. TECHNIQUE: Multiple contiguous axial images were obtained through the brain without the use of intravenous contrast. INDICATION: Brain tumor COMPARISON: 12/29/2016 FINDINGS: Intravenous access was not able to be obtained, therefore, intravenous contrast was unable to be administered. Rounded hypodensity is identified within the right frontal lobe measuring 2.2 x 1.7 cm, significantly decreased in size since the prior examination when it measured 4.0 x 2.7 cm. Associated mass effect and adjacent edema are significantly improved from the prior examination. Mild adjacent edema persists. No intracranial hemorrhage. No midline shift, resolved from the prior examination. Previously noted hypo- and hyperdensity involving the left cerebellum is less prominent than on the prior examination. Calcifications are now seen within this region. No herniation, hydrocephalus, or extra-axial fluid collection. No evidence of an acute ischemic infarction. The orbits are unremarkable. The paranasal sinuses are clear. The calvarium and extracalvarial soft tissues are unremarkable IMPRESSION: Findings consistent with a good interval response to therapy. In particular, previously noted right frontal and left cerebellar mass lesions have decreased in size since the prior examination with improving edema within the right frontal lobe. No new mass lesion is seen. Evaluation for intracranial masses is slightly limited secondary to lack of intravenous contrast, though no intravenous access was able to be obtained for this examination. Dictated by: Dictated on workstation # [id number] Dict: 03/27/17 1318 Trans: 03/27/17 1345 Interpreted by: JERE JOHN MD Electronically signed by: JERE JOHN MD 03/27/17 1345 Departure Impression Impression: Primary Impression: Headache Qualified Codes: R51 - Headache Disposition: 01 HOME, SELF-CARE Condition: Stable Departure-Patient Inst. Decision time for Depature: 14:06 Referrals: ABAD MURRAY MD (PCP/Family) Primary Care Physician Patient Instructions: Gastrointestinal Bleeding, Headache, Adult (DC) Add. Discharge Instructions: All discharge instructions reviewed with patient and/or family. Voiced understanding. Take medications as directed. Follow-up with her doctor on Tuesday as scheduled. It is very important that you return if you have persistent change in stool color or you have concerns of bleeding from your bottom as this has been incompletely evaluated. You need to discuss this with her doctor. Return for worse pain, fever, vomiting, weakness, breathing problems or other concerns as needed. Scripts Hydrocodone Bit/Acetaminophen (Hydrocodone/Acetaminophen 5/325mg Tablet) 1 Tab Tab 1-2 EACH PO Q6H Y for PAIN-MODERATE, #20 TAB 0 Refills Prov: KARLIE ZHU MD 03/27/17 Copy Copies To 1: ABAD MURRAY MD, TIMOTHY D MD Mar 27, 2017 12:45
--- NOTE | 2017-03-27 13:30 | Diagnostic Imaging Report ---
PROCEDURE: CT head without contrast. TECHNIQUE: Multiple contiguous axial images were obtained through the brain without the use of intravenous contrast. INDICATION: Brain tumor COMPARISON: 12/29/2016 FINDINGS: Intravenous access was not able to be obtained, therefore, intravenous contrast was unable to be administered. Rounded hypodensity is identified within the right frontal lobe measuring 2.2 x 1.7 cm, significantly decreased in size since the prior examination when it measured 4.0 x 2.7 cm. Associated mass effect and adjacent edema are significantly improved from the prior examination. Mild adjacent edema persists. No intracranial hemorrhage. No midline shift, resolved from the prior examination. Previously noted hypo- and hyperdensity involving the left cerebellum is less prominent than on the prior examination. Calcifications are now seen within this region. No herniation, hydrocephalus, or extra-axial fluid collection. No evidence of an acute ischemic infarction. The orbits are unremarkable. The paranasal sinuses are clear. The calvarium and extracalvarial soft tissues are unremarkable IMPRESSION: Findings consistent with a good interval response to therapy. In particular, previously noted right frontal and left cerebellar mass lesions have decreased in size since the prior examination with improving edema within the right frontal lobe. No new mass lesion is seen. Evaluation for intracranial masses is slightly limited secondary to lack of intravenous contrast, though no intravenous access was able to be obtained for this examination. Dictated by: Dictated on workstation # [id number]
[2017-03-27] MEDS ORDERED: ACHD5005 PO (14:11)
[2017-03-27 14:16] VITALS: BP 133/85
== END 2017-03-27 14:16 | disposition home or self-care (01) ==
LOC: EDUNIT# 10:38 → ER 10:40
DX: R51 Headache (principal); C79.31 Secondary malignant neoplasm of brain; J45.909 Unspecified asthma, uncomplicated; E78.00 Pure hypercholesterolemia, unspecified; I10 Essential (primary) hypertension; K21.9 Gastro-esophageal reflux disease without esophagitis; M06.9 Rheumatoid arthritis, unspecified; F31.9 Bipolar disorder, unspecified; F41.9 Anxiety disorder, unspecified; F17.210 Nicotine dependence, cigarettes, uncomplicated; Z79.52 Long term (current) use of systemic steroids; Z85.3 Personal history of malignant neoplasm of breast; Z87.59 Personal history of other complications of pregnancy, childbirth and the puerperium; Z90.13 Acquired absence of bilateral breasts and nipples; Z92.21 Personal history of antineoplastic chemotherapy
CPT/HCPCS: 36415; 70450; 80053; 85025

== ENCOUNTER 2017-05-20 03:44 | Emergency (ER) | payer MEDICARE, MEDICAID ==
[~2017-05-20] VITALS: Ht 165.1 cm; Wt 75.7 kg
[~2017-05-20 03:44] MED LIST changes: +DIVA-76 PO; -DIVA500T7 PO; -PROC10TA; -PROC10TA PO; +PROC10TA10; +PROC10TA10 PO
[2017-05-20] MEDS ORDERED: LACTATED RINGERS 1,000 ML IV ONE (03:56)
[2017-05-20] MEDS ORDERED: PROMETHAZINE INJ 25 MG/ML (PHENERGAN) AMP IVP STA (03:56)
[2017-05-20] MEDS ORDERED: fentaNYL INJECTION 100 MCG/2 ML AMP IVP STA (03:56)
[2017-05-20] MEDS ORDERED: diphenhydrAMINE 50 MG/ML INJ (BENADRYL) IVP ONE (04:00)
[2017-05-20 04:32] LABS: BASOPHILS % (AUTO) 0 % (0-10); EOSINOPHILS % (AUTO) 1 % (0-10); HEMATOCRIT 39 % (35-52); HEMOGLOBIN 13.6 G/DL (11.5-16.0); LYMPHOCYTES % (AUTO) 20 % (12-44); MEAN CORPUSCULAR HEMOGLOBIN 33 PG (25-34); MEAN CORPUSCULAR HGB CONC 35 G/DL (32-36); MEAN CORPUSCULAR VOLUME 95 FL (80-99); MEAN PLATELET VOLUME 9.5 FL (7.4-10.4); MONOCYTES # (AUTO) 0.4 X 10^3 (0.0-1.0); MONOCYTES % (AUTO) 8 % (0-12); NEUTROPHILS # (AUTO) 3.8 X 10^3 (1.8-7.8); NEUTROPHILS % (AUTO) 72 % (42-75); PLATELET COUNT 153 10^3/uL (130-400); RED BLOOD COUNT 4.09 10^6/uL (4.35-5.85); RED CELL DISTRIBUTION WIDTH 15.9 % (10.0-14.5); WHITE BLOOD COUNT 5.2 10^3/uL (4.3-11.0)
--- NOTE | 2017-05-20 04:48 | ED Headache ---
General Chief Complaint: Head/Cervical Problems Stated Complaint: WOLF Source: patient, old records History of Present Illness Date Seen by Provider: May 20, 2017 Time Seen by Provider: 03:53 Initial Comments PT ARRIVES VIA EMS FROM HOME STATES SHE WOKE UP 1 1/2 HOURS AGO WITH HEADACHE STATES PAIN "SHOOTS ACROSS" FOREHEAD--LASTS A SECOND, THEN GOES AWAY FOR 10 MINUTES AND THEN "SHOOTS AGAIN" DOES NOT HAVE A HEADACHE AT THIS TIME HAS NOT TAKEN ANYTHING FOR PAIN PT HAS ONGOING NAUSEA/VOMITING,AND HAD BEEN WORSE FOR 4-5 DAYS--STATES SHE "CAN' T KEEP ANYTHING DOWN" --HAS COMPAZINE AT HOME BUT HAS NOT TAKEN ANY TONIGHT PT IS CURRENTLY BEING TREATED FOR METASTATIC BREAST CANCER TO BRAIN PT HAS HAD ONGOING ISSUES WITH HEADACHES SINCE DX WITH BRAIN METS. PT HAS HAD BILATERAL MASTECTOMY, WITH RADIATION AND CHEMO. WAS DIAGNOSED WITH BRAIN METS 12/2016 AND HAD ANOTHER COURSE OF RADIATION AND IS NOW ON ORAL CHEMO PCP: [facility], DR. MURRAY Allergies and Home Medications Allergies Coded Allergies: No Known Drug Allergies (Unverified , 09/27/14) Home Medications Dexamethasone 4 Mg Tablet, 8 MG PO QID Prescribed by: EMILY MURPHY on 12/29/16 1114 Divalproex Sodium 500 Mg Tab.er.24h, 2,000 MG PO HS, (Reported) TAKES 4 (500MG) TABLETS Hydrocodone Bit/Acetaminophen 1 Tab Tab, 1-2 EACH PO Q6H PRN for PAIN-MODERATE Prescribed by: KARLIE ZHU on 03/27/17 1411 Lorazepam 1 Mg Tablet, 1 MG PO Q6H Prescribed by: EMILY MURPHY on 12/29/16 1114 Patient Home Medication List Home Medication List Reviewed: Yes Review of Systems Constitutional: no symptoms reported Eyes: No Symptoms Reported Ears, Nose, Mouth, Throat: no symptoms reported Respiratory: no symptoms reported Cardiovascular: no symptoms reported Gastrointestinal: see HPI, nausea, vomiting Genitourinary: no symptoms reported Musculoskeletal: no symptoms reported Skin: no symptoms reported Psychiatric/Neurological: See HPI, Headache; Denies Numbness, Denies Paresthesia, Denies Seizure, Denies Tingling, Denies Tremors, Denies Weakness Past Uhdmfpu-Myfclz-Lydwrf Hx Patient Social History Alcohol Use: Denies Use Recreational Drug Use: No Smoking Status: Current Everyday Smoker (1 PPD) Type Used: Cigarettes (1 PPD) Recent Foreign Travel: No Contact w/Someone Who Travel: No Recent Hopitalizations: No Immunizations Up To Date Tetanus Booster (TDap): Unknown Seasonal Allergies Seasonal Allergies: No Past Medical History Surgeries: Yes (INFUSAPORT; BILATERAL MASTECTOMY) Breast, Section, Gallbladder, Vascular Surgery Respiratory: Yes Asthma Cardiac: Yes High Cholesterol, Hypertension Neurological: Yes (BRAIN METS FROM BREAST CANCER) 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: No (THROUGH MENOPAUSE) Female 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 REPEAT RADIATION AND NOW ON ORAL CHEMO SINCE 12/2016 WHEN DIAGNOSED WITH BRAIN METS. ) What Type of Treatment Did You: Chemotherapy, Radiation, Surgical Intervention Psychosocial: Yes Anxiety, Bipolar, Personality Disorder, Depression Integumentary: No Blood Disorders: No Adverse Reaction/Blood Tranf: No (HAS HAD BLOOD TRANSFUSION WITH NO PROBLEM) Family Medical History Not obtainable due to adoption (ADOPTION) No Pertinent Family Hx Physical Exam Vital Signs Vital Signs - First Documented 05/20/17 03:46 Temp 98.4 Pulse 89 Resp 16 B/P (MAP) 129/69 (89) Pulse Ox 96 O2 Delivery Room Air Capillary Refill : General Appearance: WD/WN, no apparent distress, other (COMPLETE HAIR LOSS; PT SMILING, TALKING NON-STOP AT GREAT LENGTH . DOES NOT APPEAR TO BE IN ANY DISCOMFORT OR DISTRESS. ) HEENT: other (EDENTULOUS) Neck: normal inspection Cardiovascular: regular rate, rhythm, no murmur Respiratory: normal breath sounds, no respiratory distress, no accessory muscle use Gastrointestinal: non tender, soft Back: normal inspection Extremities: normal inspection, normal capillary refill Psychiatric: alert, oriented x 3 Crainal Nerves: normal hearing, normal speech, PERRL Motor/Sensory: no motor deficit, no sensory deficit, no pronator drift Skin: normal color, warm/dry Progress/Results/Core Measures Lab Results Laboratory Tests Test 05/20/17 04:20 Range/Units White Blood Count 5.2 4.3-11.0 10^3/uL Red Blood Count 4.09 L 4.35-5.85 10^6/uL Hemoglobin 13.6 11.5-16.0 G/DL Hematocrit 39 35-52 % Mean Corpuscular Volume 95 80-99 FL Mean Corpuscular Hemoglobin 33 25-34 PG Mean Corpuscular Hemoglobin Concent 35 32-36 G/DL Red Cell Distribution Width 15.9 H 10.0-14.5 % Platelet Count 153 130-400 10^3/uL Mean Platelet Volume 9.5 7.4-10.4 FL Neutrophils (%) (Auto) 72 42-75 % Lymphocytes (%) (Auto) 20 12-44 % Monocytes (%) (Auto) 8 0-12 % Eosinophils (%) (Auto) 1 0-10 % Basophils (%) (Auto) 0 0-10 % Neutrophils # (Auto) 3.8 1.8-7.8 X 10^3 Lymphocytes # (Auto) 1.0 1.0-4.0 X 10^3 Monocytes # (Auto) 0.4 0.0-1.0 X 10^3 Eosinophils # (Auto) 0.0 0.0-0.3 10^3/uL Basophils # (Auto) 0.0 0.0-0.1 10^3/uL Sodium Level 139 135-145 MMOL/L Potassium Level 3.8 3.6-5.0 MMOL/L Chloride Level 105 98-107 MMOL/L Carbon Dioxide Level 25 21-32 MMOL/L Anion Gap 9 5-14 MMOL/L Blood Urea Nitrogen 8 7-18 MG/DL Creatinine 0.65 0.60-1.30 MG/DL Estimat Glomerular Filtration Rate > 60 BUN/Creatinine Ratio 12 Glucose Level 97 70-105 MG/DL Calcium Level 9.1 8.5-10.1 MG/DL Magnesium Level 1.9 1.8-2.4 MG/DL Total Bilirubin 0.5 0.1-1.0 MG/DL Aspartate Amino Transf (AST/SGOT) 16 5-34 U/L Alanine Aminotransferase (ALT/SGPT) 13 0-55 U/L Alkaline Phosphatase 44 40-136 U/L Total Protein 6.6 6.4-8.2 GM/DL Albumin 3.7 3.2-4.5 GM/DL Amylase Level 20 L 25-125 U/L Lipase 18 8-78 U/L My Orders Orders - EMILY MURPHY DO Saline Lock/Iv-Start (05/20/17 03:56) Monitor-Rhythm Ecg Trace Only (05/20/17 03:56) Amylase (05/20/17 03:56) Cbc With Automated Diff (05/20/17 03:56) Comprehensive Metabolic Panel (05/20/17 03:56) Lipase (05/20/17 03:56) Magnesium (05/20/17 03:56) Ua Culture If Indicated (05/20/17 03:56) Ct Head Wo (05/20/17 03:56) Saline Lock/Iv-Start (05/20/17 03:56) Lactated Ringers (Lr 1000 Ml Iv Solution (05/20/17 03:56) Fentanyl Injection (Sublimaze Injection (05/20/17 03:56) Promethazine Injection (Phenergan Injec (05/20/17 03:56) Diphenhydramine Injection (Benadryl Inje (05/20/17 04:00) Medications Given in ED Current Medications Medications Dose Ordered Sig/Nilda Route Start Time Stop Time Status Last Admin Dose Admin Diphenhydramine HCl 25 mg ONCE ONCE IVP 05/20/17 04:00 05/20/17 04:01 DC 05/20/17 04:31 25 MG Lactated Ringer's 1,000 ml @ 0 mls/hr Q0M ONCE IV 05/20/17 03:56 05/20/17 04:01 DC 05/20/17 04:32 999 MLS/HR Vital Signs/I&O 05/20/17 03:46 Temp 98.4 Pulse 89 Resp 16 B/P (MAP) 129/69 (89) Pulse Ox 96 O2 Delivery Room Air Progress Note : Progress Note HEADACHE IMPROVED AT DISMISSAL NAUSEA RESOLVED Comments CT HEAD--NO ACUTE PROCESS, RIGHT FRONTAL LOBE LESION DECREASED IN SIZE SINCE PRIOR STUDAY. OLD LEFT CEREBELLAR INFARCT OR HEMORRHAGE. PER [facility] VIA FAX @ [phone] Reviewed: Reviewed by Me Departure Impression Primary Impression: Headache Additional Impressions: Breast cancer metastasized to brain CHRONIC NAUSEA AND VOMITING Disposition: 01 HOME, SELF-CARE Condition: Improved Departure-Patient Inst. Referrals: ABAD MURRAY MD (PCP/Family) Primary Care Physician Patient Instructions: Brain Metastases, Breast Cancer (DC), Headache, Adult (DC ), Nausea and Vomiting With Cancer Treatment Add. Discharge Instructions: LOTS OF CLEAR LIQUIDS, SIPS AT A TIME FOLLOW UP WITH YOUR ONCOLOGIST AND DR. MURRAY NEXT WEEK FOR FURTHER CARE All discharge instructions reviewed with patient and/or family. Voiced understanding. Scripts Promethazine HCl (Phenergan) 25 Mg Supp.rect 25 MG RC Q4H for Nausea/Vomiting, #10 SUPP.RECT Prov: EMILY MRUPHY DO 05/20/17 EMILY MURPHY DO May 20, 2017 04:48
[2017-05-20 04:51] LABS: ALANINE AMINOTRANSFERASE 13 U/L (0-55); ALBUMIN 3.7 GM/DL (3.2-4.5); ALKALINE PHOSPHATASE 44 U/L (40-136); AMYLASE 20 U/L (25-125); BILIRUBIN,TOTAL 0.5 MG/DL (0.1-1.0); BUN/CREATININE RATIO 12; CALCIUM 9.1 MG/DL (8.5-10.1); CARBON DIOXIDE 25 MMOL/L (21-32); CHLORIDE 105 MMOL/L (98-107); CREATININE SERUM 0.65 MG/DL (0.60-1.30); GFR ESTIMATED > 60; GLUCOSE 97 MG/DL (70-105); LIPASE 18 U/L (8-78); MAGNESIUM 1.9 MG/DL (1.8-2.4); POTASSIUM 3.8 MMOL/L (3.6-5.0); SODIUM 139 MMOL/L (135-145); TOTAL PROTEIN 6.6 GM/DL (6.4-8.2)
[2017-05-20] MEDS ORDERED: PROM25SU43 RC (05:49)
[2017-05-20 06:00] VITALS: BP 131/42
--- NOTE | 2017-05-20 06:18 | Diagnostic Imaging Report ---
PROCEDURE: CT head without contrast. TECHNIQUE: Multiple contiguous axial images were obtained through the brain without the use of intravenous contrast. INDICATION: Headache in patient with metastatic breast cancer Comparison is made to study of 03/17/2017. Low-density peripheral mass in the right frontal lobe now measures 1.9 x 1.7 cm and is likely stable or slightly improved compared to the previous exam. There is mild to moderate low density within the deep white matter of both hemispheres which is symmetric without focal area of infarct. There is no hemorrhage. Calvarium is intact with visualized paranasal sinuses demonstrating no air-fluid level or significant mural thickening. No new abnormality is identified. IMPRESSION: Stable or mildly decreased size of peripheral right frontal lesion compared to previous study. MRI may be of value for further characterization. Dictated by: Dictated on workstation # [id number]
[2017-05-21] MEDS ORDERED: TRAM50TA2 (08:35)
--- OUTSIDE RECORDS SUMMARY | 2017-05-22 03:46 | XMS REPORT ---
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 Active 04164702 Problem Malignant neoplasm of unspecified site of right female breast C50.911 Active 304658985 Problem Tobacco abuse Z72.0 Active 690494293 Problem Neuropathy of right foot G57.91 Active 653268820 Problem Bipolar 1 disorder, depressed F31.9 Active 13887458 Problem Bipolar disorder, unspecified F31.9 Active 79759226 Problem Seasonal allergic rhinitis, unspecified allergic rhinitis trigger J30.2 Active 423311321 Problem Malignant neoplasm of right female breast, unspecified site of breast C50.911 Active 528406512 ALLERGIES Substance Reaction Event Type Date Status Lyrica Unknown Drug Allergy Jul, Active Haldol fever Drug Allergy Jul, Active Gabapentin Unknown Drug Allergy Jul, Active ENCOUNTERS Encounter Location Date Diagnosis [facility] [id number] [place] [phone] Jan, Rash R21 and Hordeolum externum of right lower eyelid H00.012 [facility] [id number] [place] [address] Jan, [facility] [id number] [place] [phone] Nov, Acute non-recurrent frontal sinusitis J01.10 [facility] [id number] [place] [address]86 Jul, [place] [id number] [place] [address] Jul, [place] [id number] [place] [address]86 Jul, Neuropathy of right foot G57.91 ; Tobacco abuse Z72.0 and Breast cancer, right C50.911 [facility] [address] [id number] May, [facility] [place] [address] [id number] [place] [phone] May, Seasonal allergic rhinitis, unspecified allergic rhinitis trigger J30.2 [facility] [place] [id number] [place] [phone] Apr, Acute bacterial conjunctivitis of right eye H10.[address] [address] Mar, Malignant neoplasm of right female breast, unspecified site of breast C50.911 ; Acute nasopharyngitis J00 and Bipolar 1 disorder, depressed F31.9 [facility] [place] [id number] [place] [phone] Mar, Subacute frontal sinusitis J01.10 and Cough R05 [facility] [place] [id number] [place] [address] 14 Mar, 2016 Acute non-recurrent maxillary sinusitis J01.00 [facility] [address] [place] [id number] [place] [phone] 10 Mar, 2016 Seasonal allergic rhinitis, unspecified allergic rhinitis trigger J30.2 [place] [id number] [place] [address]37- [address] 03 Mar, 2016 [place] [id number] [place] [phone] [phone] Feb, Bipolar disorder, unspecified F31.9 [facility] [address] [address] Feb, [facility] [address] [id number] [id number] Jan, [facility] [address] [id number] [id number] Oct, [facility] [address] [id number] [id number] Oct, [facility] [address] [id number] [id number] Feb, [facility] [address] [id number] [id number] Feb, Bipolar 1 disorder F31.9 ; COPD (chronic obstructive pulmonary disease) J44.9 ; Breast cancer, right C50.911 ; Tachycardia R00.0 and Benign essential hypertension I10 [facility] [id number] [place] [address] Jan, Sebaceous cyst L72.3 [facility] [id number] [place] [address]2319- [address] Jan, [facility] [id number] [place] [address]99 Jan, Malignant neoplasm of right female breast, unspecified site of breast C50.911 [facility] [id number] [place] [address] 97289- [address] Jan, [facility] [id number] [place] [address]38[address] Jan, [facility] [id number] [place] [address] 34647- 3683 Jan, Sebaceous cyst L72.3 [facility] [id number] [place] [address] 36070- 6696 Dec, [facility] [id number] [place] [address] 30994- 4817 Dec, Abnormal mammogram R92.8 and Breast mass N63 [place] [address] [address] Dec, Breast pain, right N64.4 [place] [id number] [place] [address] 08150[address] 32[address] Dec, COPD (chronic obstructive pulmonary disease) J44.9 ; Weight gain R63.5 and Encounter for weight loss counseling Z71.3 [place] [address] [address] Dec, [place] [address] [address] Nov, Sebaceous cyst L72.3 [place] [id number] [place] [address] 97017- [address] Oct, Skin lesion of right arm 709.9 and Localized swelling, mass , and lump of head 784.2 [place] [id number] [place] [address]79- [address] Oct, [place] [address] [address] Oct, [place] [id number] [place] [address] 35736- 9210 18 Oct, 2014 Routine adult health maintenance V70.0 and Fatigue 780.79 [place] [id number] [place] [address] 10026- [phone] 16 Oct, 2014 Routine adult health maintenance V70.0 ; COPD (chronic obstructive pulmonary disease) 496 ; Arthritis of both hips 716.95 ; Fatigue 780.79 and Localized swelling, mass, and lump of head 784.2 [place] [id number] [place] [address]2639- [address]169 Oct, [place] [address] [address] Sep, COPD (chronic obstructive pulmonary disease) 496 and Bipolar disorder 296.80 IMMUNIZATIONS No Known Immunizations SOCIAL HISTORY Never Assessed REASON FOR VISIT Requests return call PLAN OF CARE VITAL SIGNS MEDICATIONS Medication Instructions Dosage Frequency Start Date End Date Duration Status Meloxicam 7.5 MG Orally Once a day 1 tablet 24h Jul, Aug, 30 day(s) Active RESULTS No Results PROCEDURES No Known procedures INSTRUCTIONS MEDICATIONS ADMINISTERED No Known Medications MEDICAL (GENERAL) HISTORY Type Description Date Medical [...] History surgeries Hospitalization History Fever of unknown origin-[facility] 05/24/16
--- OUTSIDE RECORDS SUMMARY | 2017-05-22 03:52 | XMS REPORT | Continuity of Care Document ---
Author Author [facility] Organization [facility] Address Unknown Phone Unavailable Allergies Active Description Code Type Severity Reaction Onset Reported/Identified Relationship to Patient Clinical Status Yes No Known Drug Allergies [id number] Drug Allergy Unknown N/A 09/27/2014 Medications There is no data. Problems Date Dx Coded Attending Type Code Diagnosis Diagnosed By 09/27/2014 KARLIE ZHU MD Ot 053.9 HERPES ZOSTER NOS 09/27/2014 KARLIE ZHU MD Ot V68.1 ISSUE REPEAT PRESCRIPT 10/11/2014 REGINALDO ANNA MD Ot 692.6 DERMATITIS DUE TO PLANT 10/11/2014 REGINALDO ANNA MD Ot 782.1 NONSPECIF SKIN ERUPT NEC 11/08/2014 DARÍO BURROWS BIOLOGICAL SCIENCE TECHNICIAN Ot 784.2 11/08/2014 REGINALDO ANNA MD Ot F17.210 NICOTINE DEPENDENCE, CIGARETTES, UNCOMPL 11/08/2014 REGINALDO ANNA MD Ot J44.1 CHRONIC OBSTRUCTIVE PULMONARY DISEASE W 11/08/2014 REGINALDO ANNA MD Ot R06.02 SHORTNESS OF BREATH 11/08/2014 DARÍO BURROWS BIOLOGICAL SCIENCE TECHNICIAN Ot 784.2 11/19/2014 DARÍO BURROWS BIOLOGICAL SCIENCE TECHNICIAN Ot 784.2 11/21/2014 KAYLA MELENDEZ APRN Ot [...] Ot R50.9 FEVER, UNSPECIFIED 12/25/2014 KAYLA MELENDEZ BIOLOGICAL SCIENCE TECHNICIAN Ot F17.210 NICOTINE DEPENDENCE, CIGARETTES, UNCOMPL 12/25/2014 KAYLA MELENDEZ BIOLOGICAL SCIENCE TECHNICIAN Ot N64.9 DISORDER OF BREAST, UNSPECIFIED 01/09/2015 DARÍO BURROWS BIOLOGICAL SCIENCE TECHNICIAN Ot N64.4 01/09/2015 DARÍO BURROWS BIOLOGICAL SCIENCE TECHNICIAN Ot N64.4 01/10/2015 STORMY DARÍO You BIOLOGICAL SCIENCE TECHNICIAN Ot N64.4 01/10/2015 ROB BURROWSYARELY You BIOLOGICAL SCIENCE TECHNICIAN Ot N63 01/10/2015 STORMY DARÍO You BIOLOGICAL SCIENCE TECHNICIAN Ot R92.8 01/14/2015 STORMY DARÍO You BIOLOGICAL SCIENCE TECHNICIAN Ot N64.4 01/14/2015 STORMY DARÍO You BIOLOGICAL SCIENCE TECHNICIAN Ot N63 01/14/2015 STORMY DARÍO You BIOLOGICAL SCIENCE TECHNICIAN Ot R92.8 01/17/2015 STORMY DARÍO You BIOLOGICAL SCIENCE TECHNICIAN Ot N64.4 01/17/2015 STORMY DARÍO You BIOLOGICAL SCIENCE TECHNICIAN Ot N63 01/17/2015 STORMY DARÍO You BIOLOGICAL SCIENCE TECHNICIAN Ot R92.8 01/17/2015 MARIA LUZ MURRAY, CAM [...] You (DDU) Ot Z02.71 01/22/2015 DARÍO BURROWS BIOLOGICAL SCIENCE TECHNICIAN Ot N64.4 01/22/2015 DARÍO BURROWS BIOLOGICAL SCIENCE TECHNICIAN Ot N63 01/22/2015 DARÍO BURROWS BIOLOGICAL SCIENCE TECHNICIAN Ot R92.8 01/22/2015 GAMALIEL MURRAY, CEE K Ot C50.411 01/22/2015 GAMALIEL MURRAY, CEE K Ot E66.9 01/22/2015 GAMALIEL MURRAY, CEE K Ot E78.5 01/22/2015 GAMALIEL MURRAY, CEE K Ot F17.210 01/22/2015 GAMALIEL MURRAY, CEE K Ot F31.9 01/22/2015 GAMALIEL MRURAY, CEE K Ot I10 01/22/2015 GAMALIEL MURRAY, CEE K Ot J44.9 01/22/2015 GAMALIEL MURRAY, CEE K Ot Z17.0 01/22/2015 GAMALIEL MURRAY, CEE K Ot Z68.34 01/22/2015 GAMALIEL MURRAY, CEE K Ot Z79.899 01/22/2015 GAMALIEL MURRAY, CEE K Ot C50.411 01/22/2015 GAMALIEL MURRAY, CEE K Ot Z51.81 01/22/2015 GAMALIEL MURRAY, CEE K Ot Z79.899 01/24/2015 SHERRY ROGEL MD (DDU) Ot Z02.71 01/24/2015 DARÍO BURROWS BIOLOGICAL SCIENCE TECHNICIAN Ot N64.4 01/24/2015 DARÍO BURROWS BIOLOGICAL SCIENCE TECHNICIAN Ot N63 01/24/2015 DARÍO BURROWS BIOLOGICAL SCIENCE TECHNICIAN Ot R92.8 01/24/2015 GAMALIEL MURRAY, CEE K [...] K Ot R92.8 01/24/2015 KITTY SANDRA S SLOT KEY PERSON Ot C50.511 01/24/2015 KITTY SANDRA S SLOT KEY PERSON Ot E66.9 01/24/2015 KITTY SANDRA S SLOT KEY PERSON Ot E78.5 01/24/2015 KARIN TANGAH S SLOT KEY PERSON Ot F17.210 01/24/2015 KITTY SANDRA S SLOT KEY PERSON Ot F31.9 01/24/2015 KARIN TANGSINGH S SLOT KEY PERSON Ot I10 01/24/2015 KARIN TANGSINGH S SLOT KEY PERSON Ot J44.9 01/24/2015 KITTY SANDRA S SLOT KEY PERSON Ot Z17.1 01/24/2015 KITTY SANDRA S SLOT KEY PERSON Ot Z68.35 01/24/2015 KITTY SANDRA S SLOT KEY PERSON Ot Z79.899 01/24/2015 GAMALIEL MURRAY, CEE Pryor Ot R92.8 01/24/2015 KITTY SANDRA S SLOT KEY PERSON Ot C50.511 01/24/2015 KARIN TANGSINGH S SLOT KEY PERSON Ot E66.9 01/24/2015 KARIN TANGSINGH S SLOT KEY PERSON Ot E78.5 01/24/2015 KITTY SANDRA S SLOT KEY PERSON Ot F17.210 01/24/2015 KITTY SANDRA S SLOT KEY PERSON Ot F31.9 01/24/2015 KITTY SANDRA S SLOT KEY PERSON Ot I10 01/24/2015 KARIN TANGSINGH S SLOT KEY PERSON Ot J44.9 01/24/2015 KARIN TANGSINGH S SLOT KEY PERSON Ot Z17.1 01/24/2015 KARIN TANGSINGH S SLOT KEY PERSON Ot Z68.35 01/24/2015 KARIN TANGSINGH S SLOT KEY PERSON Ot Z79.899 01/24/2015 GAMALIEL MURRAY, CEE K [...] CEE Pryor Ot Z79.899 01/24/2015 DARÍO BURROWS BIOLOGICAL SCIENCE TECHNICIAN Ot N63 01/24/2015 DARÍO BURROWS BIOLOGICAL SCIENCE TECHNICIAN Ot R92.8 01/24/2015 DARÍO BURROWS BIOLOGICAL SCIENCE TECHNICIAN Ot N64.4 01/24/2015 SHERRY ROGEL MD (DDU) Ot Z02.71 01/24/2015 DARÍO BURROWS BIOLOGICAL SCIENCE TECHNICIAN Ot N64.4 01/24/2015 DARÍO BURROWS BIOLOGICAL SCIENCE TECHNICIAN Ot N63 01/24/2015 DARÍO BURROWS BIOLOGICAL SCIENCE TECHNICIAN Ot R92.8 01/24/2015 GAMALIEL MURRAY, CEE Konstantin [...] SANDRA TANG Ot C50.511 01/24/2015 SANDRA TANG SLOT KEY PERSON Ot E66.9 01/24/2015 SANDRA TANG SLOT KEY PERSON Ot E78.5 01/24/2015 SANDRA TANG SLOT KEY PERSON Ot F17.210 01/24/2015 SANDRA TANG SLOT KEY PERSON Ot F31.9 01/24/2015 SANDRA TANG SLOT KEY PERSON Ot I10 01/24/2015 SANDRA TANG SLOT KEY PERSON Ot J44.9 01/24/2015 SANDRA TANG S SLOT KEY PERSON Ot Z17.1 01/24/2015 SANDRA TANG S SLOT KEY PERSON Ot Z68.35 01/24/2015 SANDRA TANG SLOT KEY PERSON Ot Z79.899 02/13/2015 GAMALIEL MURRAY, CEE Pryor Ot C50.511 02/13/2015 GAMALIEL MURRAY, CEE Pryor Ot Z51.81 02/13/2015 GAMALIEL MURRAY, CEE Pryor Ot Z79.899 02/13/2015 GAMALIEL MURRAY, CEE Pryor Ot C50.511 02/13/2015 GAMALIEL MURRAY, CEE Pryor Ot Z51.81 02/13/2015 GAMALIEL MURRAY, CEE Pryor Ot Z79.899 02/17/2015 PEBBLES MURRAY, SHERRY You (DDU) Ot Z02.71 02/17/2015 DARÍO BURROWS BIOLOGICAL SCIENCE TECHNICIAN Ot N64.4 02/17/2015 DARÍO BURROWS BIOLOGICAL SCIENCE TECHNICIAN Ot N63 02/17/2015 DARÍO BURROWS BIOLOGICAL SCIENCE TECHNICIAN Ot R92.8 02/17/2015 GAMALIEL MURRAY, CEE Pryor [...] MURRAY, CEE Pryor Ot R92.8 02/17/2015 TANGSANDRA SLOT KEY PERSON Ot C50.511 02/17/2015 TANG, SANDRA S SLOT KEY PERSON Ot E66.9 02/17/2015 TANG, HILAH S SLOT KEY PERSON Ot E78.5 02/17/2015 TNAG, HILAH S SLOT KEY PERSON Ot F17.210 02/17/2015 TANG, HILAH S SLOT KEY PERSON Ot F31.9 02/17/2015 TANG, HILAH S SLOT KEY PERSON Ot I10 02/17/2015 TANG, HILAH S SLOT KEY PERSON Ot J44.9 02/17/2015 TANG, HILAH S SLOT KEY PERSON Ot Z17.1 02/17/2015 KITTY SANDRA S SLOT KEY PERSON Ot Z68.35 02/17/2015 KITTYSANDRA S SLOT KEY PERSON Ot Z79.899 02/17/2015 GAMALIEL MURRAY, CEE Pryor [...] You (DDU) Ot Z02.71 03/17/2015 DARÍO BURROWS BIOLOGICAL SCIENCE TECHNICIAN Ot N64.4 03/17/2015 DARÍO BURROWS BIOLOGICAL SCIENCE TECHNICIAN Ot N63 03/17/2015 DARÍO BURROWS BIOLOGICAL SCIENCE TECHNICIAN Ot R92.8 03/17/2015 GAMALIEL MURRAY, CEE Pryor [...] GAMALIEL MURRAY, CEE Pryor Ot Z79.899 03/17/2015 GAMLAIEL MURRAY, CEE Pryor Ot C50.511 03/17/2015 GAMALIEL MURRAY, CEE Pryor Ot R92.8 03/17/2015 SANDRA TANG SLOT KEY PERSON Ot C50.511 03/17/2015 SANDRA TANG S SLOT KEY PERSON Ot E66.9 03/17/2015 SANDRA TANG S SLOT KEY PERSON Ot E78.5 03/17/2015 KARIN TANGSINGH S SLOT KEY PERSON Ot F17.210 03/17/2015 SANDRA TANG S SLOT KEY PERSON Ot F31.9 03/17/2015 SANDRA TANG S SLOT KEY PERSON Ot I10 03/17/2015 SANDRA TANG S SLOT KEY PERSON Ot J44.9 03/17/2015 SANDRA TANG S SLOT KEY PERSON Ot Z17.1 03/17/2015 SANDRA TANG S SLOT KEY PERSON Ot Z68.35 03/17/2015 SANDRA TANG S SLOT KEY PERSON Ot Z79.899 03/17/2015 GAMALIEL MURRAY, CEE Pryor Ot C50.511 03/17/2015 GAMALIEL MURRAY, CEE Pryor Ot Z51.81 03/17/2015 GAMALIEL MURRAY, CEE Konstantin Ot Z79.899 03/17/2015 GAMALIEL MURRAY, CEE Pryor Ot C50.511 03/19/2015 MARIA ULZ MURRAY, CAM Jara Ot C50.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 03/19/2015 MARIA LUZ MURRAY, CAM Estefani Ot Z11.2 ENCOUNTER FOR SCREENING FOR OTHER BACTER 03/20/2015 GAMALIEL MURRAY, CEE Konstantin Ot C50.511 03/20/2015 PEBBELS MURRAY, SHERRY You (DDU) Ot Z02.71 03/20/2015 DARÍO BURROWS BIOLOGICAL SCIENCE TECHNICIAN Ot N64.4 03/20/2015 DARÍO BURROWS BIOLOGICAL SCIENCE TECHNICIAN Ot N63 03/20/2015 DARÍO BURROWS BIOLOGICAL SCIENCE TECHNICIAN Ot R92.8 03/20/2015 GAMALIEL MURRAY, CEE K [...] CEE K Ot R92.8 03/20/2015 SANDRA TANG SLOT KEY PERSON Ot C50.511 03/20/2015 SANDRA TANG SLOT KEY PERSON Ot E66.9 03/20/2015 SANDRA TANG SLOT KEY PERSON Ot E78.5 03/20/2015 SANDRA TANG SLOT KEY PERSON Ot F17.210 03/20/2015 SANDRA TANG SLOT KEY PERSON Ot F31.9 03/20/2015 SANDRA TANG SLOT KEY PERSON Ot I10 03/20/2015 SANDRA TANG SLOT KEY PERSON Ot J44.9 03/20/2015 SANDRA TANG SLOT KEY PERSON Ot Z17.1 03/20/2015 TANG, HILAH S SLOT KEY PERSON Ot Z68.35 03/20/2015 KITTY KARINAH S SLOT KEY PERSON Ot Z79.899 03/20/2015 GAMALIEL MURRAY, CEE K Ot C50.511 03/20/2015 GAMALIEL MURRAY, CEE K Ot Z51.81 03/20/2015 GAMALIEL MURRAY, CEE Pryor Ot Z79.899 03/20/2015 GAMALIEL MURRAY, CEE K Ot C50.511 03/20/2015 MARIA LUZ MURRAY, CAM M Ot C50.911 03/20/2015 MARIA LUZ MURRAY, CAM M Ot Z01.818 03/20/2015 GAMALIEL MURRAY, CEE K Ot C50.511 03/20/2015 KITTY HILAH S SLOT KEY PERSON Ot C50.511 03/20/2015 KARIN TANGAH S SLOT KEY PERSON Ot E66.9 03/20/2015 KITTY HILAH S SLOT KEY PERSON Ot E78.5 03/20/2015 KARIN TANGAH S SLOT KEY PERSON Ot F17.210 03/20/2015 KARIN TANGAH S SLOT KEY PERSON Ot F31.9 03/20/2015 SANDRA TANG S SLOT KEY PERSON Ot I10 03/20/2015 SANDRA TANG S SLOT KEY PERSON Ot J44.9 03/20/2015 SANDRA TANG S SLOT KEY PERSON Ot Z17.1 03/20/2015 KARIN TANGAH S SLOT KEY PERSON Ot Z68.35 03/20/2015 KITTY KARINAH S SLOT KEY PERSON Ot Z79.899 03/20/2015 GAMALIEL MURRAY, CEE K Ot C50.511 03/20/2015 GAMALIEL MURRAY, CEE Pryor Ot Z51.81 03/20/2015 GAMALIEL MURRAY, CEE K Ot Z79.899 03/20/2015 KITTY SANDRA S SLOT KEY PERSON Ot C50.511 03/20/2015 KARIN TANGAH S SLOT KEY PERSON Ot E66.9 03/20/2015 SANDRA TANG S SLOT KEY PERSON Ot E78.5 03/20/2015 KITTY HILAH S SLOT KEY PERSON Ot F17.210 03/20/2015 KITTY HILAH S SLOT KEY PERSON Ot F31.9 03/20/2015 KARIN TANGAH S SLOT KEY PERSON Ot I10 03/20/2015 SANDRA TANG S SLOT KEY PERSON Ot J44.9 03/20/2015 SANDRA TANG S SLOT KEY PERSON Ot Z17.1 03/20/2015 KITTYSANDRA SLOT KEY PERSON Ot Z68.35 03/20/2015 KITTY SANDRA Lazar SLOT KEY PERSON Ot Z79.899 03/20/2015 GAMALIEL MRURAY, CEE Konstantin Ot R92.8 03/20/2015 GAMALIEL MURRAY, [...] CEE Konstantin Ot Z79.899 03/20/2015 DARÍO BURROWS BIOLOGICAL SCIENCE TECHNICIAN Ot N63 03/20/2015 DARÍO BURROWS BIOLOGICAL SCIENCE TECHNICIAN Ot R92.8 03/20/2015 GAMALIEL MURRAY, CEE Pryor Ot C50.411 03/20/2015 GAMALIEL MURRAY, CEE Pryor Ot E66.9 03/20/2015 GAMALIEL MURRAY, CEE Pryor Ot E78.5 03/20/2015 GAMALIEL MURRAY, CEE Pryor Ot F17.210 03/20/2015 GAMALIEL MURRAY, CEE Pyror Ot F31.9 03/20/2015 GAMALIEL MURRAY, ECE Pryor Ot I10 03/20/2015 GAMALIEL MURRAY, CEE Pryor Ot J44.9 03/20/2015 GAMALIEL MURRAY, CEE Pryor Ot Z17.0 03/20/2015 GAMALIEL MURRAY, CEE Konstantin Ot Z68.34 03/20/2015 GAMALIEL MURRAY, CEE Pryor Ot Z79.899 03/20/2015 BURROWS, DARÍO You BIOLOGICAL SCIENCE TECHNICIAN Ot N63 03/20/2015 BURROWS, DARÍO You BIOLOGICAL SCIENCE TECHNICIAN Ot R92.8 03/20/2015 BURROWS, DARÍO You BIOLOGICAL SCIENCE TECHNICIAN Ot N64.4 03/20/2015 BURROWS, DARÍO A BIOLOGICAL SCIENCE TECHNICIAN Ot 784.2 03/25/2015 GAMALIEL MURRAY, CEE Konstantin Ot C50.511 03/25/2015 GAMALIEL MURRAY, CEE Konstantin Ot C50.511 03/25/2015 GAMALIEL MURRAY, CEE Pryor Ot Z51.81 03/25/2015 GAMALIEL MURRAY, CEE Konstantin Ot Z79.899 03/25/2015 GAMALIEL MURRAY, CEE Konstantin Ot C50.511 03/25/2015 GAMALIEL MURRAY, CEE Konstantin Ot C50.411 03/25/2015 GAMALIEL MURRAY, CEE Pryor Ot Z51.81 03/25/2015 GAMALIEL MURRAY, CEE Pryor Ot Z79.899 03/25/2015 BURROWS, DARÍO You BIOLOGICAL SCIENCE TECHNICIAN Ot N63 03/25/2015 BURROWS, DARÍO A BIOLOGICAL SCIENCE TECHNICIAN Ot R92.8 03/25/2015 BURROWS, DARÍO A BIOLOGICAL SCIENCE TECHNICIAN Ot 784.2 03/31/2015 BURROWS, DARÍO A BIOLOGICAL SCIENCE TECHNICIAN Ot 784.2 03/31/2015 PEBBLES MURRAY, SHERRY You (DDU) Ot Z02.71 03/31/2015 BURROWS, DARÍO A BIOLOGICAL SCIENCE TECHNICIAN Ot N64.4 03/31/2015 BURROWS, DARÍO A BIOLOGICAL SCIENCE TECHNICIAN Ot N63 03/31/2015 BURROWS, DARÍO A BIOLOGICAL SCIENCE TECHNICIAN Ot R92.8 03/31/2015 GAMALIEL MURRAY, CEE Pryor [...] Pryor Ot R92.8 03/31/2015 KITTY SANDRA S SLOT KEY PERSON Ot C50.511 03/31/2015 KITTY HILAH S SLOT KEY PERSON Ot E66.9 03/31/2015 KITTY HILAH S SLOT KEY PERSON Ot E78.5 03/31/2015 KITTY KARINAH S SLOT KEY PERSON Ot F17.210 03/31/2015 KITTY KARINAH S SLOT KEY PERSON Ot F31.9 03/31/2015 KITTY SANDRA S SLOT KEY PERSON Ot I10 03/31/2015 KITTY SANDRA S SLOT KEY PERSON Ot J44.9 03/31/2015 KITTY SANDRA S SLOT KEY PERSON Ot Z17.1 03/31/2015 KITTY SANDRA S SLOT KEY PERSON Ot Z68.35 03/31/2015 KITTY KARINAH S SLOT KEY PERSON Ot Z79.899 03/31/2015 GAMALIEL MURRAY, CEE Pryor Ot C50.511 03/31/2015 GAMALIEL MURRAY, CEE Pryor Ot Z51.81 03/31/2015 GAMALIEL MURRAY, CEE Pryor Ot Z79.899 03/31/2015 GAMALIEL MURRAY, CEE Pryor Ot C50.511 03/31/2015 MARIA LUZ MURRAY, CAM Jara Ot C50.911 03/31/2015 MARIA LUZ MURRAY, CAM M Ot Z01.818 04/04/2015 DARÍO BURROWS BIOLOGICAL SCIENCE TECHNICIAN Ot 784.2 04/04/2015 DARÍO BURROWS BIOLOGICAL SCIENCE TECHNICIAN Ot N64.4 04/04/2015 DARÍO BURROWS BIOLOGICAL SCIENCE TECHNICIAN Ot N63 04/04/2015 DARÍO BURROWS BIOLOGICAL SCIENCE TECHNICIAN Ot R92.8 04/04/2015 GAMALIEL MURRAY, CEE Pryor Ot C50.511 04/04/2015 GAMALIEL MURRAY, CEE K Ot R92.8 04/04/2015 TANGSANDRA Lazar SLOT KEY PERSON Ot C50.511 04/04/2015 SANDRA TANG SLOT KEY PERSON Ot E66.9 04/04/2015 SANDRA TANG S SLOT KEY PERSON Ot E78.5 04/04/2015 SANDRA TANG S SLOT KEY PERSON Ot F17.210 04/04/2015 SANDRA TANG S SLOT KEY PERSON Ot F31.9 04/04/2015 SANDRA TANG S SLOT KEY PERSON Ot I10 04/04/2015 SANDRA TANG S SLOT KEY PERSON Ot J44.9 04/04/2015 SANDRA TANG S SLOT KEY PERSON Ot Z17.1 04/04/2015 TANGSANDRA Lazar S SLOT KEY PERSON Ot Z68.35 04/04/2015 TANGSANDRA Lazar SLOT KEY PERSON Ot Z79.899 04/04/2015 GAMALIEL MURRAY, CEE Konstantin Ot C50.511 04/04/2015 GAMALIEL MURRAY, CEE Konstantin Ot Z51.81 04/04/2015 GAMALIEL MURRAY, CEE K Ot Z79.899 04/04/2015 GAMALIEL MURRAY, CEE Pryor Ot C50.511 04/07/2015 DARÍO BURROWS BIOLOGICAL SCIENCE TECHNICIAN Ot 784.2 04/07/2015 PEBBLES MURRAY, SHERRY You (DDU) Ot Z02.71 04/07/2015 DARÍO BURROWS BIOLOGICAL SCIENCE TECHNICIAN Ot N64.4 04/07/2015 DARÍO BURROWS BIOLOGICAL SCIENCE TECHNICIAN Ot N63 04/07/2015 DARÍO BURROWS BIOLOGICAL SCIENCE TECHNICIAN Ot R92.8 04/07/2015 GAMALIEL MURRAY, CEE Konstantin [...] Pryor Ot R92.8 04/07/2015 KITTY SANDRA S SLOT KEY PERSON Ot C50.511 04/07/2015 KARIN TANGSINGH S SLOT KEY PERSON Ot E66.9 04/07/2015 KITTY SANDRA S SLOT KEY PERSON Ot E78.5 04/07/2015 KITTY SANDRA S SLOT KEY PERSON Ot F17.210 04/07/2015 KITTY SANDRA S SLOT KEY PERSON Ot F31.9 04/07/2015 KITTY SANDRA S SLOT KEY PERSON Ot I10 04/07/2015 KITTY SANDRA S SLOT KEY PERSON Ot J44.9 04/07/2015 KITTY SANDRA S SLOT KEY PERSON Ot Z17.1 04/07/2015 KITTY SANDRA S SLOT KEY PERSON Ot Z68.35 04/07/2015 KITTY SANDRA S SLOT KEY PERSON Ot Z79.899 04/07/2015 GAMALIEL MURRAY, CEE Pryor Ot C50.511 04/07/2015 GAMALIEL MURRAY, CEE Pryor Ot Z51.81 04/07/2015 GAMALIEL MURARY, CEE Pryor Ot Z79.899 04/07/2015 GAMALIEL MURRAY, [...] GAMALIEL MURRAY, CEE Pryor Ot Z79.899 OTHER LONGTERM (CURRENT) DRUG THERAPY 04/21/2015 GAMALIEL MURRAY, CEE [...] SANDRA TANG Ot C50.511 04/29/2015 SANDRA TANG SLOT KEY PERSON Ot Z79.899 04/30/2015 GAMALIEL MURRAY, CEE Pryor [...] CEE Pryor Ot Z51.81 06/17/2015 DARÍO BURROWS BIOLOGICAL SCIENCE TECHNICIAN Ot 784.2 SWELLING IN HEAD NECK 06/17/2015 SHERRY ROGEL MD (DDU) Ot Z02.71 ENCOUNTER FOR DISABILITY DETERMINATION 06/17/2015 DARÍO BURROWS BIOLOGICAL SCIENCE TECHNICIAN Ot N64.4 MASTODYNIA 06/17/2015 DARÍO BURROWS BIOLOGICAL SCIENCE TECHNICIAN Ot N63 UNSPECIFIED LUMP IN BREAST 06/17/2015 DARÍO BURROWS APRN Ot R92.8 OTH ABN AND INCONCLUSIVE FINDINGS ON DX 06/17/2015 GAMALIEL MURRAY, CEE Pryor Ot C50.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 06/17/2015 GAMALIEL MURRAY, CEE Pryor Ot Z51.81 ENCOUNTER FOR THERAPEUTIC DRUG LEVEL MON 06/17/2015 CEE ALSTON MD Ot Z79.899 OTHER LONGTERM (CURRENT) DRUG THERAPY 06/17/2015 CEE ALSTON MD Ot 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 06/17/2015 CEE ALSTON MD Ot R92.8 OTH ABN AND INCONCLUSIVE FINDINGS ON DX 06/17/2015 SANDRA TANG Cady SLOT KEY PERSON Ot 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 06/17/2015 SANDRA TANG S SLOT KEY PERSON Ot E66.9 OBESITY, UNSPECIFIED 06/17/2015 SANDRA TANG S SLOT KEY PERSON Ot E78.5 HYPERLIPIDEMIA, UNSPECIFIED 06/17/2015 KARIN TANGSINGH S SLOT KEY PERSON Ot F17.210 NICOTINE DEPENDENCE, CIGARETTES, UNCOMPL 06/17/2015 SANDRA TANG S SLOT KEY PERSON Ot F31.9 BIPOLAR DISORDER, UNSPECIFIED 06/17/2015 KARIN TANGSINGH S SLOT KEY PERSON Ot I10 ESSENTIAL (PRIMARY) HYPERTENSION 06/17/2015 SANDRA TANG S SLOT KEY PERSON Ot J44.9 CHRONIC OBSTRUCTIVE PULMONARY DISEASE, U 06/17/2015 SANDRA TANG S SLOT KEY PERSON Ot Z17.1 ESTROGEN RECEPTOR NEGATIVE STATUS [ER-] 06/17/2015 SANDRA TANG S SLOT KEY PERSON Ot Z68.35 BODY MASS INDEX (BMI) 35.0-35.9, ADULT 06/17/2015 SANDRA TANG S SLOT KEY PERSON Ot 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 06/17/2015 CEE ALSTON MD Ot 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 06/17/2015 CEE ALSTON MD Ot Z51.81 ENCOUNTER FOR THERAPEUTIC DRUG LEVEL MON 06/17/2015 CEE ALSTON MD Ot Z79.899 OTHER LONGTERM (CURRENT) DRUG THERAPY 06/17/2015 CEE ALSTON MD [...] 06/17/2015 CEE ALSTON MD Ot 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 06/17/2015 SANDRA TANG Ot 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 06/17/2015 SANDRA TANG Ot 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 06/17/2015 CEE ALSTON MD [...] 06/17/2015 CEE ALSTON MD Ot Z79.899 OTHER LONGTERM (CURRENT) DRUG THERAPY 06/17/2015 CEE ALSTON MD [...] 07/30/2015 CEE ALSTON MD, Ot 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 07/31/2015 CEE ALSTON MD, [...] 07/31/2015 CEE ALSTON MD, Ot 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 08/05/2015 CEE ALSTON MD, [...] 08/05/2015 CEE ALSTON MD Ot Z79.899 OTHER LONGTERM (CURRENT) DRUG THERAPY 01/01/2016 CEE ALSTON MD [...] OBSTRUCTIVE PULMONARY DISEASE, U 01/01/2016 CEE ALSTON MD Ot Z17.0 ESTROGEN RECEPTOR POSITIVE STATUS [ER+] 01/01/2016 CEE ALSTON MD Ot Z51.11 ENCOUNTER FOR ANTINEOPLASTIC CHEMOTHERAP 01/01/2016 CEE ALSTON MD Ot Z68.34 BODY MASS INDEX (BMI) 34.0-34.9, ADULT 01/01/2016 CEE ALSTON MD Ot 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 02/16/2016 DARÍO BURROWS BIOLOGICAL SCIENCE TECHNICIAN Ot 784.2 SWELLING IN HEAD NECK 02/16/2016 SHERRY ROGEL MD (DDU) Ot Z02.71 ENCOUNTER FOR DISABILITY DETERMINATION 02/16/2016 DARÍO BURROWS BIOLOGICAL SCIENCE TECHNICIAN Ot N64.4 MASTODYNIA 02/16/2016 DARÍO BURROWS BIOLOGICAL SCIENCE TECHNICIAN Ot N63 UNSPECIFIED LUMP IN BREAST 02/16/2016 DARÍO BURROWS APRN Ot R92.8 OTH ABN AND INCONCLUSIVE FINDINGS ON DX 02/16/2016 CEE ALSTON MD Ot C50.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 02/16/2016 CEE ALSTON MD Ot Z51.81 ENCOUNTER FOR THERAPEUTIC DRUG LEVEL MON 02/16/2016 CEE ALSTON MD Ot 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 02/16/2016 CEE ALSTON MD Ot 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 02/16/2016 CEE ALSTON MD, Ot R92.8 OTH ABN AND INCONCLUSIVE FINDINGS ON DX 02/16/2016 SANDRA TANG SLOT KEY PERSON Ot 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 02/16/2016 SANDRA TANG SLOT KEY PERSON Ot E66.9 OBESITY, UNSPECIFIED 02/16/2016 SANDRA TANG S SLOT KEY PERSON Ot E78.5 HYPERLIPIDEMIA, UNSPECIFIED 02/16/2016 SANDRA TANG SLOT KEY PERSON Ot F17.210 NICOTINE DEPENDENCE, CIGARETTES, UNCOMPL 02/16/2016 SANDRA TANG SLOT KEY PERSON Ot F31.9 BIPOLAR DISORDER, UNSPECIFIED 02/16/2016 SANDRA TANG S SLOT KEY PERSON Ot I10 ESSENTIAL (PRIMARY) HYPERTENSION 02/16/2016 SANDRA TANG SLOT KEY PERSON Ot J44.9 CHRONIC OBSTRUCTIVE PULMONARY DISEASE, U 02/16/2016 SANDRA TANG S SLOT KEY PERSON Ot Z17.1 ESTROGEN RECEPTOR NEGATIVE STATUS [ER-] 02/16/2016 SANDRA TANG SLOT KEY PERSON Ot Z68.35 BODY MASS INDEX (BMI) 35.0-35.9, ADULT 02/16/2016 SANDRA TANG SLOT KEY PERSON Ot Z79.899 OTHER LONGTERM (CURRENT) DRUG THERAPY 02/16/2016 CEE ALSTON MD Ot 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 02/16/2016 CEE ALSTON MD Ot Z51.81 ENCOUNTER FOR THERAPEUTIC DRUG LEVEL MON 02/16/2016 CEE ALSTON MD Ot 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 02/16/2016 CEE ALSTON MD [...] GAMALIEL MURRAY CEE Konstantin Ot Z79.899 OTHER LONGTERM (CURRENT) DRUG THERAPY 02/16/2016 SANDRA TANG Ot 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 02/16/2016 SANDRA TANG Ot 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 02/16/2016 GAMALIEL MURRAY CEE [...] 02/16/2016 EULOGIO BRAGA MD, Ot 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 02/16/2016 DARÍO BURROWS APRN Ot 784.2 SWELLING IN HEAD NECK 02/16/2016 SHERRY ROGEL MD ([facility]) Ot Z02.71 ENCOUNTER FOR DISABILITY DETERMINATION 02/16/2016 [...] 02/16/2016 CEE ALSTON MD Ot 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 02/16/2016 CEE ALSTON MD Ot 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 02/16/2016 CEE ALSTON MD Ot R92.8 OTH ABN AND INCONCLUSIVE FINDINGS ON DX 02/16/2016 SANDRA TANG SLOT KEY PERSON Ot 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 02/16/2016 SANDRA TANG S SLOT KEY PERSON Ot E66.9 OBESITY, UNSPECIFIED 02/16/2016 SANDRA TANG S SLOT KEY PERSON Ot E78.5 HYPERLIPIDEMIA, UNSPECIFIED 02/16/2016 SANDRA TANG S SLOT KEY PERSON Ot F17.210 NICOTINE DEPENDENCE, CIGARETTES, UNCOMPL 02/16/2016 SANDRA TANG S SLOT KEY PERSON Ot F31.9 BIPOLAR DISORDER, UNSPECIFIED 02/16/2016 SANDRA TANG S SLOT KEY PERSON Ot I10 ESSENTIAL (PRIMARY) HYPERTENSION 02/16/2016 SANDRA TANG SLOT KEY PERSON Ot J44.9 CHRONIC OBSTRUCTIVE PULMONARY DISEASE, U 02/16/2016 SANDRA TANG S SLOT KEY PERSON Ot Z17.1 ESTROGEN RECEPTOR NEGATIVE STATUS [ER-] 02/16/2016 SANDRA TANG S SLOT KEY PERSON Ot Z68.35 BODY MASS INDEX (BMI) 35.0-35.9, ADULT 02/16/2016 SANDRA TANG S SLOT KEY PERSON Ot 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 02/16/2016 ECE ALSTON MD Ot 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 02/16/2016 CEE ALSTON MD Ot Z51.81 ENCOUNTER FOR THERAPEUTIC DRUG LEVEL MON 02/16/2016 CEE ALSTON MD Ot 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 02/16/2016 CEE ALSTON MD [...] 02/16/2016 CEE ALSTON MD Ot 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 02/16/2016 SANDRA TANG Ot 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 02/16/2016 SANDRA TANG Ot Z79.899 OTHER LONGTERM (CURRENT) DRUG THERAPY 02/16/2016 CEE ALSTON MD [...] 02/16/2016 EULOGIO BRAGA MD Ot 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 02/16/2016 EDIL QURESHI Ot F17.210 NICOTINE DEPENDENCE, CIGARETTES, UNCOMPL 02/16/2016 EDIL QURESHI Ot F41.9 ANXIETY DISORDER, UNSPECIFIED 02/16/2016 EDIL QURESHI Ot I10 ESSENTIAL (PRIMARY) HYPERTENSION 02/16/2016 EDIL QURESHI Ot Z95.9 PRESENCE OF CARDIAC AND VASCULAR IMPLANT 02/16/2016 DARÍO BURROWS APRN Ot 784.2 SWELLING IN HEAD NECK 02/16/2016 SHERRY ROGEL MD ([facility]) Ot Z02.71 ENCOUNTER FOR DISABILITY DETERMINATION 02/16/2016 DARÍO BURROWS BIOLOGICAL SCIENCE TECHNICIAN Ot N64.4 MASTODYNIA 02/16/2016 DARÍO BURROWS BIOLOGICAL SCIENCE TECHNICIAN Ot N63 UNSPECIFIED LUMP IN BREAST 02/16/2016 DARÍO BURROWS APRN Ot R92.8 OTH ABN AND INCONCLUSIVE FINDINGS ON DX 02/16/2016 CEE ALSTON MD Ot C50.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 02/16/2016 CEE ALSTON MD Ot Z51.81 ENCOUNTER FOR THERAPEUTIC DRUG LEVEL MON 02/16/2016 CEE ALSTON MD Ot 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 02/16/2016 CEE ALSTON MD [...] NICOTINE DEPENDENCE, CIGARETTES, UNCOMPL 02/16/2016 SANDRA TANG Ot F31.9 BIPOLAR DISORDER, UNSPECIFIED 02/16/2016 SANDRA TANGP Ot I10 ESSENTIAL (PRIMARY) HYPERTENSION 02/16/2016 SANDRA TANG Ot J44.9 CHRONIC OBSTRUCTIVE PULMONARY DISEASE, U 02/16/2016 SANDRA TANG Ot Z17.1 ESTROGEN RECEPTOR NEGATIVE STATUS [ER-] 02/16/2016 SANDRA TANG Ot Z68.35 BODY MASS INDEX (BMI) 35.0-35.9, ADULT 02/16/2016 SANDRA TANG Ot Z79.899 OTHER LONGTERM (CURRENT) DRUG THERAPY 02/16/2016 CEE ALSTON MD Ot 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 02/16/2016 CEE ALSTON MD Ot Z51.81 ENCOUNTER FOR THERAPEUTIC DRUG LEVEL MON 02/16/2016 CEE ALSTON MD Ot 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 02/16/2016 CEE ALSTON MD [...] 02/16/2016 CEE ALSTON MD Ot 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 02/16/2016 SANDRA TANG Ot 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 02/16/2016 SANDRA TANG Ot Z79.899 OTHER LONGTERM (CURRENT) DRUG THERAPY 02/16/2016 CEE ALSTON MD [...] 02/16/2016 EULOGIO BRAGA MD, Ot 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 02/17/2016 EDIL QURESHI Ot [...] 03/01/2016 CEE ALSTON MD Ot 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 03/01/2016 CEE ALSTON MD Ot 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 03/01/2016 CEE ALSTON MD Ot R92.8 OTH ABN AND INCONCLUSIVE FINDINGS ON DX 03/01/2016 SANDRA TANG Ot 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 03/01/2016 SANDRA TANG Ot E66.9 OBESITY, UNSPECIFIED 03/01/2016 SANDRA TANG SLOT KEY PERSON Ot E78.5 HYPERLIPIDEMIA, UNSPECIFIED 03/01/2016 SANDRA TANG SLOT KEY PERSON Ot F17.210 NICOTINE DEPENDENCE, CIGARETTES, UNCOMPL 03/01/2016 SANDRA TANG SLOT KEY PERSON Ot F31.9 BIPOLAR DISORDER, UNSPECIFIED 03/01/2016 SANDRA TANG SLOT KEY PERSON Ot I10 ESSENTIAL (PRIMARY) HYPERTENSION 03/01/2016 SANDRA TANGP Ot J44.9 CHRONIC OBSTRUCTIVE PULMONARY DISEASE, U 03/01/2016 SANDRA TANG SLOT KEY PERSON Ot Z17.1 ESTROGEN RECEPTOR NEGATIVE STATUS [ER-] 03/01/2016 SANDRA TANG SLOT KEY PERSON Ot Z68.35 BODY MASS INDEX (BMI) 35.0-35.9, ADULT 03/01/2016 SANDRA TANGP Ot Z79.899 OTHER LONGTERM (CURRENT) DRUG THERAPY 03/01/2016 CEE ALSTON MD Ot 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 03/01/2016 CEE ALSTON MD Ot Z51.81 ENCOUNTER FOR THERAPEUTIC DRUG LEVEL MON 03/01/2016 CEE ALSTON MD Ot 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 03/01/2016 CEE ALSTON MD [...] 03/01/2016 CEE ALSTON MD Ot 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 03/01/2016 SANDRA TANG Ot 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 03/01/2016 SANDRA TANG Ot 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 03/01/2016 CEE ALSTON MD Ot 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 03/01/2016 CEE ALSTON MD Ot Z51.81 ENCOUNTER FOR THERAPEUTIC DRUG LEVEL MON 03/01/2016 DARÍO BURROWS BIOLOGICAL SCIENCE TECHNICIAN Ot 784.2 SWELLING IN HEAD NECK 03/01/2016 SHERRY ROGEL MD ([facility]) Ot Z02.71 ENCOUNTER FOR DISABILITY DETERMINATION 03/01/2016 DARÍO BURROWS BIOLOGICAL SCIENCE TECHNICIAN Ot N64.4 MASTODYNIA 03/01/2016 DARÍO BURROWS BIOLOGICAL SCIENCE TECHNICIAN Ot N63 UNSPECIFIED LUMP IN BREAST 03/01/2016 DARÍO BURROWS BIOLOGICAL SCIENCE TECHNICIAN Ot R92.8 OTH ABN AND INCONCLUSIVE FINDINGS ON DX 03/01/2016 CEE ALSTON MD Ot C50.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 03/01/2016 CEE ALSTON MD Ot Z51.81 ENCOUNTER FOR THERAPEUTIC DRUG LEVEL MON 03/01/2016 CEE ALSTON MD Ot 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 03/01/2016 CEE ALSTON MD [...] ADULT 03/01/2016 SANDRA TANG Ot Z79.899 OTHER LONGTERM (CURRENT) DRUG THERAPY 03/01/2016 CEE ALSTON MD Ot 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 03/01/2016 CEE ALSTON MD Ot Z51.81 ENCOUNTER FOR THERAPEUTIC DRUG LEVEL MON 03/01/2016 CEE ALSTON MD Ot Z79.899 OTHER LONGTERM (CURRENT) DRUG THERAPY 03/01/2016 CEE ALSTON MD [...] 03/01/2016 CEE ALSTON MD Ot 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 03/01/2016 SANDRA TANG Ot 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 03/01/2016 SANDRA TANG Ot 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 03/01/2016 CEE ALSTON MD [...] MON 03/02/2016 ADE FOWLER Ot 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 03/02/2016 ADE FOWLER Ot Z51.81 ENCOUNTER FOR THERAPEUTIC DRUG LEVEL MON 03/02/2016 ADE FOWLER Ot Z79.899 OTHER LONGTERM (CURRENT) DRUG THERAPY 03/04/2016 ADE FOWLER Ot Z51.81 ENCOUNTER FOR THERAPEUTIC DRUG LEVEL MON 03/04/2016 ADE FOWLER Ot Z79.899 OTHER LONGTERM (CURRENT) DRUG THERAPY 03/04/2016 KAYLA MELENDEZ APRN Ot C50.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 03/04/2016 KAYLA MELENDEZ APRN Ot F17.210 NICOTINE DEPENDENCE, CIGARETTES, UNCOMPL 03/04/2016 KAYLA MELENDEZ BIOLOGICAL SCIENCE TECHNICIAN Ot I10 ESSENTIAL (PRIMARY) HYPERTENSION 03/04/2016 KAYLA MELENDEZ APRN Ot J44.9 CHRONIC OBSTRUCTIVE PULMONARY DISEASE, U 03/04/2016 KAYLA MELENDEZ APRN Ot N61.0 MASTITIS WITHOUT ABSCESS 03/04/2016 KAYLA MELENDEZ APRN Ot 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 03/04/2016 KAYLA MELENDEZ APRN [...] 03/05/2016 KAYLA MELENDEZ APRN Ot 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 03/05/2016 KAYLA MELENDEZ APRN Ot Z90.11 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 03/07/2016 ADE FOWLER Ot Z51.81 ENCOUNTER FOR THERAPEUTIC DRUG LEVEL MON 03/07/2016 ADE FOWLER Ot Z79.899 OTHER LONGTERM (CURRENT) DRUG THERAPY 03/18/2016 ADE FOWLER Ot Z51.81 ENCOUNTER FOR THERAPEUTIC DRUG LEVEL MON 03/18/2016 ADE FOWLER Ot Z79.899 OTHER LONGTERM (CURRENT) DRUG THERAPY 04/19/2016 DARÍO BURROWS BIOLOGICAL SCIENCE TECHNICIAN Ot 784.2 SWELLING IN HEAD NECK 04/19/2016 SHERRY ROGEL MD ([facility]) Ot Z02.71 ENCOUNTER FOR DISABILITY DETERMINATION 04/19/2016 BURROWSDARÍO Avelino BIOLOGICAL SCIENCE TECHNICIAN Ot N64.4 MASTODYNIA 04/19/2016 DARÍO BURROWS BIOLOGICAL SCIENCE TECHNICIAN Ot N63 UNSPECIFIED LUMP IN BREAST 04/19/2016 ROB BURROWSFER Avelino BIOLOGICAL SCIENCE TECHNICIAN Ot R92.8 OTH ABN AND INCONCLUSIVE FINDINGS ON DX 04/19/2016 CEE ALSTON MD Ot C50.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 04/19/2016 CEE ALSTON MD Ot Z51.81 ENCOUNTER FOR THERAPEUTIC DRUG LEVEL MON 04/19/2016 CEE ALSTON MD Ot Z79.899 OTHER LONGTERM (CURRENT) DRUG THERAPY 04/19/2016 CEE ALSTON MD, Ot 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 04/19/2016 CEE ALSTON MD Ot R92.8 OTH ABN AND INCONCLUSIVE FINDINGS ON DX 04/19/2016 SANDRA TANGP Ot 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 04/19/2016 SANDRA TANG SLOT KEY PERSON Ot E66.9 OBESITY, UNSPECIFIED 04/19/2016 SANDRA TANGP Ot E78.5 HYPERLIPIDEMIA, UNSPECIFIED 04/19/2016 SANDRA TANG SLOT KEY PERSON Ot F17.210 NICOTINE DEPENDENCE, CIGARETTES, UNCOMPL 04/19/2016 SANDRA TANG SLOT KEY PERSON Ot F31.9 BIPOLAR DISORDER, UNSPECIFIED 04/19/2016 SANDRA TANGP Ot I10 ESSENTIAL (PRIMARY) HYPERTENSION 04/19/2016 SANDRA TANGP Ot J44.9 CHRONIC OBSTRUCTIVE PULMONARY DISEASE, U 04/19/2016 SANDRA TANGP Ot Z17.1 ESTROGEN RECEPTOR NEGATIVE STATUS [ER-] 04/19/2016 SANDRA TANGP Ot Z68.35 BODY MASS INDEX (BMI) 35.0-35.9, ADULT 04/19/2016 SANDRA TANG SLOT KEY PERSON Ot Z79.899 OTHER LONGTERM (CURRENT) DRUG THERAPY 04/19/2016 CEE ALSTON MD Ot 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 04/19/2016 CEE ALSTON MD Ot Z51.81 ENCOUNTER FOR THERAPEUTIC DRUG LEVEL MON 04/19/2016 CEE ALSTON MD Ot 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 04/19/2016 CEE ALSTON MD [...] 04/19/2016 CEE ALSTON MD Ot Z79.899 OTHER LONGTERM (CURRENT) DRUG THERAPY 04/19/2016 SANDRA TANG Ot 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 04/19/2016 SANDRA TANG Ot 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 04/19/2016 CEE ALSTON MD [...] 05/06/2016 OMI MURRAY, EULOGIO Ot Z79.899 OTHER LONGTERM (CURRENT) DRUG THERAPY 05/06/2016 STORMY DARÍO A BIOLOGICAL SCIENCE TECHNICIAN Ot 784.2 SWELLING IN HEAD NECK 05/06/2016 PEBBLES MURRAY, SHERRY You ([facility]) Ot Z02.71 ENCOUNTER FOR DISABILITY DETERMINATION 05/06/2016 DARÍO BURROWS BIOLOGICAL SCIENCE TECHNICIAN Ot N64.4 MASTODYNIA 05/06/2016 DARÍO BURROWS BIOLOGICAL SCIENCE TECHNICIAN Ot N63 UNSPECIFIED LUMP IN BREAST 05/06/2016 DARÍO BURROWS BIOLOGICAL SCIENCE TECHNICIAN Ot R92.8 OTH ABN AND INCONCLUSIVE FINDINGS ON DX 05/06/2016 CEE ALSTON MD Ot C50.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 05/06/2016 CEE ALSTON MD Ot Z51.81 ENCOUNTER FOR THERAPEUTIC DRUG LEVEL MON 05/06/2016 CEE ALSTON MD Ot 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 05/06/2016 CEE ALSTON MD Ot 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 05/06/2016 CEE ALSTON MD Ot R92.8 OTH ABN AND INCONCLUSIVE FINDINGS ON DX 05/06/2016 SANDRA TANG Ot 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 05/06/2016 SNADRA TANG SLOT KEY PERSON Ot E66.9 OBESITY, UNSPECIFIED 05/06/2016 SANDRA TANG SLOT KEY PERSON Ot E78.5 HYPERLIPIDEMIA, UNSPECIFIED 05/06/2016 SANDRA TANG SLOT KEY PERSON Ot F17.210 NICOTINE DEPENDENCE, CIGARETTES, UNCOMPL 05/06/2016 SANDRA TANG SLOT KEY PERSON Ot F31.9 BIPOLAR DISORDER, UNSPECIFIED 05/06/2016 SANDRA TANG SLOT KEY PERSON Ot I10 ESSENTIAL (PRIMARY) HYPERTENSION 05/06/2016 SANDRA TANGP Ot J44.9 CHRONIC OBSTRUCTIVE PULMONARY DISEASE, U 05/06/2016 SANDRA TANG SLOT KEY PERSON Ot Z17.1 ESTROGEN RECEPTOR NEGATIVE STATUS [ER-] 05/06/2016 SANDRA TANG SLOT KEY PERSON Ot Z68.35 BODY MASS INDEX (BMI) 35.0-35.9, ADULT 05/06/2016 SANDRA TANG SLOT KEY PERSON Ot 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 05/06/2016 CEE ALSTON MD Ot 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 05/06/2016 CEE ALSTON MD Ot Z51.81 ENCOUNTER FOR THERAPEUTIC DRUG LEVEL MON 05/06/2016 CEE ALSTON MD Ot 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 05/06/2016 CEE ALSTON MD [...] 05/06/2016 CEE ALSTON MD Ot 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 05/06/2016 SANDRA TANG SLOT KEY PERSON Ot 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 05/06/2016 SANDRA TANG Ot 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 05/06/2016 CEE ALSTON MD [...] 05/06/2016 EULOGIO BRAGA MD, Ot 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 05/24/2016 ADE FOWLER Ot Z51.81 ENCOUNTER FOR THERAPEUTIC DRUG LEVEL MON 05/24/2016 ADE FOWLER Ot 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 05/25/2016 EULOGIO BRAGA MD, Ot C50.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 05/25/2016 EULOGIO BRAGA MD, Ot E66.9 OBESITY, UNSPECIFIED 05/25/2016 EULOGIO BRAGA MD, Ot E78.5 HYPERLIPIDEMIA, UNSPECIFIED 05/25/2016 EULOGIO BRAGA MD, Ot F17.210 NICOTINE DEPENDENCE, CIGARETTES, UNCOMPL 05/25/2016 EULOGIO BRAGA MD, Ot F31.9 BIPOLAR DISORDER, UNSPECIFIED 05/25/2016 EULOGIO BARGA MD Ot I10 ESSENTIAL (PRIMARY) HYPERTENSION 05/25/2016 EULOGIO BRAGA MD, Ot J44.9 CHRONIC OBSTRUCTIVE PULMONARY DISEASE, U 05/25/2016 EULOGIO BRAGA MD, Ot Z17.0 ESTROGEN RECEPTOR POSITIVE STATUS [ER+] 05/25/2016 EULOGIO BRAGA MD, Ot Z68.34 BODY MASS INDEX (BMI) 34.0-34.9, ADULT 05/25/2016 EULOGIO BRAGA MD, Ot Z79.899 OTHER LONGTERM (CURRENT) DRUG THERAPY 05/25/2016 ABAD MURRAY MD, [...] LEVEL MON 05/26/2016 JANETHADE Ot Z79.899 OTHER LONGTERM (CURRENT) DRUG THERAPY 05/26/2016 KARLIE ZHU MD [...] 05/26/2016 KARLIE ZHU MD Ot Z79.899 OTHER LONGTERM (CURRENT) DRUG THERAPY 05/26/2016 KARLIE ZHU MD [...] 05/27/2016 KARLIE ZHU MD Ot Z79.899 OTHER LONGTERM (CURRENT) DRUG THERAPY 05/27/2016 KARLIE ZHU MD [...] 06/28/2016 YANG ELKINS MD Ot Z79.899 OTHER LONGTERM (CURRENT) DRUG THERAPY 06/28/2016 YANG ELKINS MD [...] 07/19/2016 EULOGIO BRAGA MD, Ot 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 07/21/2016 XUN MD, PIRES-DENEEN [...] 07/21/2016 EULOGIO BRAGA MD Ot 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 08/23/2016 EULOGIO BRAGA MD Ot C50.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 08/23/2016 EULOGIO BRAGA MD Ot E66.9 OBESITY, UNSPECIFIED 08/23/2016 EULOGIO BRAGA MD Ot E78.5 HYPERLIPIDEMIA, UNSPECIFIED 08/23/2016 [...] 08/23/2016 EULOGIO BRAGA MD Ot 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 10/18/2016 EULOGIO BRAGA MD Ot C50.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 10/18/2016 EULOGIO BRAGA MD Ot E66.9 OBESITY, UNSPECIFIED 10/18/2016 EULOGIO BRAGA MD Ot E78.5 HYPERLIPIDEMIA, UNSPECIFIED 10/18/2016 [...] 10/18/2016 EULOGIO BRAGA MD Ot Z79.899 OTHER LONGTERM (CURRENT) DRUG THERAPY 12/29/2016 ADE FOWLER Ot Z51.81 ENCOUNTER FOR THERAPEUTIC DRUG LEVEL [facility] 12/29/2016 ADE FOWLER Ot Z79.899 OTHER LONGTERM (CURRENT) DRUG THERAPY 12/29/2016 EULOGIO BRAGA MD [...] 12/29/2016 EULOGIO BRAGA MD Ot Z79.899 OTHER LONGTERM (CURRENT) DRUG THERAPY 12/29/2016 JEFFREY BALL EMILY [...] Ot J45.909 UNSPECIFIED ASTHMA, UNCOMPLICATED 12/29/2016 JEFFREY ABLL EMILY Pryor Ot K21.9 GASTRO-ESOPHAGEAL REFLUX DISEASE [...] 01/03/2017 EULOGIO BRAGA MD Ot 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 01/07/2017 KAYLA MELENDEZ APRN [...] PERSONAL HISTORY OF IRRADIATION 01/21/2017 EULOGIO BRAGA MD Ot C50.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 01/21/2017 EULOGIO BRAGA MD Ot E66.9 OBESITY, UNSPECIFIED 01/21/2017 EULOGIO BRAGA MD, Ot E78.5 HYPERLIPIDEMIA, UNSPECIFIED 01/21/2017 EULOGIO BRAGA MD, Ot F17.210 NICOTINE DEPENDENCE, CIGARETTES, UNCOMPL 01/21/2017 EULOGIO BRAGA MD, Ot F31.9 BIPOLAR DISORDER, UNSPECIFIED 01/21/2017 EULOGIO BRAGA MD Ot I10 ESSENTIAL (PRIMARY) HYPERTENSION 01/21/2017 EULOGIO BRAGA MD, Ot J44.9 CHRONIC OBSTRUCTIVE PULMONARY DISEASE, U 01/21/2017 EULOGIO BRAGA MD, Ot Z17.0 ESTROGEN RECEPTOR POSITIVE STATUS [ER+] 01/21/2017 EULOGIO BRAGA MD, Ot Z51.0 ENCOUNTER FOR ANTINEOPLASTIC RADIATION T 01/21/2017 EULOGIO BRAGA MD Ot Z68.34 BODY MASS INDEX (BMI) 34.0-34.9, ADULT 01/21/2017 EULOGIO BRAGA MD, Ot Z79.899 OTHER LONGTERM (CURRENT) DRUG THERAPY 03/27/2017 KARLIE ZHU MD Ot C79.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 03/27/2017 KARLIE ZHU MD Ot E78.00 PURE HYPERCHOLESTEROLEMIA, UNSPECIFIED 03/27/2017 KARLIE ZHU MD Ot F17.210 NICOTINE DEPENDENCE, CIGARETTES, UNCOMPL 03/27/2017 KARLIE ZHU MD Ot F31.9 BIPOLAR DISORDER, UNSPECIFIED 03/27/2017 KARLIE ZHU MD Ot F41.9 ANXIETY DISORDER, UNSPECIFIED 03/27/2017 KARLIE ZHU MD Ot I10 ESSENTIAL (PRIMARY) HYPERTENSION 03/27/2017 KARLIE ZHU MD, Ot J45.909 UNSPECIFIED ASTHMA, UNCOMPLICATED 03/27/2017 KARLIE ZHU MD, Ot K21.9 GASTRO-ESOPHAGEAL REFLUX DISEASE WITHOUT 03/27/2017 KARLIE ZHU MD, Ot M06.9 RHEUMATOID ARTHRITIS, UNSPECIFIED 03/27/2017 KARLIE ZHU MD, Ot R51 HEADACHE 03/27/2017 KARLIE ZHU MD, Ot Z79.52 LONGTERM (CURRENT) USE OF SYSTEMIC STER 03/27/2017 KARLIE ZHU MD, Ot Z85.3 PERSONAL HISTORY OF MALIGNANT NEOPLASM O 03/27/2017 KARLIE ZHU MD, Ot Z87.59 PERSONAL HISTORY OF COMP OF PREG, CHLDBR 03/27/2017 KARLIE ZHU MD, Ot Z90.13 ACQUIRED ABSENCE OF BILATERAL BREASTS AN 03/27/2017 KARLIE ZHU MD, Ot Z92.21 PERSONAL HISTORY OF ANTINEOPLASTIC CHEMO 03/29/2017 EULOGIO BRAGA MD Ot C50.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 03/29/2017 EULOGIO BRAGA MD, Ot E66.9 OBESITY, UNSPECIFIED 03/29/2017 EULOGIO BRAGA MD, Ot E78.5 HYPERLIPIDEMIA, UNSPECIFIED 03/29/2017 EULOGIO BRAGA MD, Ot F17.210 NICOTINE DEPENDENCE, CIGARETTES, UNCOMPL 03/29/2017 EULOGIO BRAGA MD, Ot F31.9 BIPOLAR DISORDER, UNSPECIFIED 03/29/2017 EULOGIO BRAGA MD, Ot I10 ESSENTIAL (PRIMARY) HYPERTENSION 03/29/2017 EULOGIO BRAGA MD, Ot J44.9 CHRONIC OBSTRUCTIVE PULMONARY DISEASE, U 03/29/2017 EULOGIO BRAGA MD, Ot Z17.0 ESTROGEN RECEPTOR POSITIVE STATUS [ER+] 03/29/2017 EULOGIO BRAGA MD, Ot Z51.0 ENCOUNTER FOR ANTINEOPLASTIC RADIATION T 03/29/2017 EULOGIO BRAGA MD, Ot Z68.34 BODY MASS INDEX (BMI) 34.0-34.9, ADULT 03/29/2017 EULOGIO BRAGA MD, Ot Z79.899 OTHER LONGTERM (CURRENT) DRUG THERAPY 03/29/2017 MARKO MD, KARLIE D Ot C79.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 03/29/2017 KARLIE ZHU MD Ot E78.00 PURE HYPERCHOLESTEROLEMIA, UNSPECIFIED 03/29/2017 KARLIE ZHU MD, Ot F17.210 NICOTINE DEPENDENCE, CIGARETTES, UNCOMPL 03/29/2017 KARLIE ZHU MD, Ot F31.9 BIPOLAR DISORDER, UNSPECIFIED 03/29/2017 KARLIE ZHU MD, Ot F41.9 ANXIETY DISORDER, UNSPECIFIED 03/29/2017 KARLIE ZHU MD, Ot I10 ESSENTIAL (PRIMARY) HYPERTENSION 03/29/2017 KARLIE ZHU MD, Ot J45.909 UNSPECIFIED ASTHMA, UNCOMPLICATED 03/29/2017 KARLIE ZHU MD, Ot K21.9 GASTRO-ESOPHAGEAL REFLUX DISEASE WITHOUT 03/29/2017 KARLIE ZHU MD, Ot M06.9 RHEUMATOID ARTHRITIS, UNSPECIFIED 03/29/2017 KARLIE ZHU MD Ot R51 HEADACHE 03/29/2017 KARLIE ZHU MD, Ot Z79.52 LONGTERM (CURRENT) USE OF SYSTEMIC STER 03/29/2017 KARLIE ZHU MD, Ot Z85.3 PERSONAL HISTORY OF MALIGNANT NEOPLASM O 03/29/2017 KARLIE ZHU MD, Ot Z87.59 PERSONAL HISTORY OF COMP OF PREG, CHLDBR 03/29/2017 KARLIE ZHU MD, Ot Z90.13 ACQUIRED ABSENCE OF BILATERAL BREASTS AN 03/29/2017 KARLIE ZHU MD, Ot Z92.21 PERSONAL HISTORY OF ANTINEOPLASTIC CHEMO 03/30/2017 EULOGIO BRAGA MD Ot C50.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 03/30/2017 EULOGIO BRAGA MD Ot E66.9 OBESITY, UNSPECIFIED 03/30/2017 EULOGIO BRAGA MD Ot E78.5 HYPERLIPIDEMIA, UNSPECIFIED 03/30/2017 EULOGIO BRAGA MD Ot F17.210 NICOTINE DEPENDENCE, CIGARETTES, UNCOMPL 03/30/2017 EULOGIO BRAGA MD Ot F31.9 BIPOLAR DISORDER, UNSPECIFIED 03/30/2017 EULOGIO BRAGA MD Ot I10 ESSENTIAL (PRIMARY) HYPERTENSION 03/30/2017 EULOGIO BRAGA MD, Ot J44.9 CHRONIC OBSTRUCTIVE PULMONARY DISEASE, U 03/30/2017 EULOGIO BRAGA MD, Ot Z17.0 ESTROGEN RECEPTOR POSITIVE STATUS [ER+] 03/30/2017 EULOGIO BRAGA MD, Ot Z51.0 ENCOUNTER FOR ANTINEOPLASTIC RADIATION T 03/30/2017 EULOGIO BRAGA MD, Ot Z68.34 BODY MASS INDEX (BMI) 34.0-34.9, ADULT 03/30/2017 EULOGIO BRAGA MD, Ot Z79.899 OTHER LONGTERM (CURRENT) DRUG THERAPY 05/20/2017 ADE FOWLER Ot Z51.81 ENCOUNTER FOR THERAPEUTIC DRUG LEVEL MON 05/20/2017 ADE FOWLER Ot 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 05/20/2017 EULOGIO BRAGA MD, Ot C50.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 05/20/2017 EULOGIO BRAGA MD Ot E66.9 OBESITY, UNSPECIFIED 05/20/2017 EULOGIO BRAGA MD Ot E78.5 HYPERLIPIDEMIA, UNSPECIFIED 05/20/2017 EULOGIO BRAGA MD Ot F17.210 NICOTINE DEPENDENCE, CIGARETTES, UNCOMPL 05/20/2017 EULOGIO BRAGA MD, Ot F31.9 BIPOLAR DISORDER, UNSPECIFIED 05/20/2017 EULOGIO BRAGA MD Ot I10 ESSENTIAL (PRIMARY) HYPERTENSION 05/20/2017 EULOGIO BRAGA MD, Ot J44.9 CHRONIC OBSTRUCTIVE PULMONARY DISEASE, U 05/20/2017 EULOGIO BRAGA MD Ot Z17.0 ESTROGEN RECEPTOR POSITIVE STATUS [ER+] 05/20/2017 EULOGIO BRAGA MD, Ot Z51.0 ENCOUNTER FOR ANTINEOPLASTIC RADIATION T 05/20/2017 EULOGIO BRAGA MD Ot Z68.34 BODY MASS INDEX (BMI) 34.0-34.9, ADULT 05/20/2017 EULOGIO BRAGA MD, Ot Z79.899 OTHER LONGTERM (CURRENT) DRUG THERAPY 05/20/2017 ADE FOWLER Ot Z51.81 ENCOUNTER FOR THERAPEUTIC DRUG LEVEL MON 05/20/2017 ADE FOWLER Ot 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 05/20/2017 EULOGIO BRAGA MD Ot C50.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 05/20/2017 EULOGIO BRAGA MD Ot E66.9 OBESITY, UNSPECIFIED 05/20/2017 EULOGIO BRAGA MD Ot E78.5 HYPERLIPIDEMIA, UNSPECIFIED 05/20/2017 EULOGIO BRAGA MD Ot F17.210 NICOTINE DEPENDENCE, CIGARETTES, UNCOMPL 05/20/2017 EULOGIO BRAGA MD Ot F31.9 BIPOLAR DISORDER, UNSPECIFIED 05/20/2017 EULOGIO BRAGA MD Ot I10 ESSENTIAL (PRIMARY) HYPERTENSION 05/20/2017 EULOGIO BRAGA MD, Ot J44.9 CHRONIC OBSTRUCTIVE PULMONARY DISEASE, U 05/20/2017 EULOGIO BRAGA MD Ot Z17.0 ESTROGEN RECEPTOR POSITIVE STATUS [ER+] 05/20/2017 EULOGIO BRAGA MD, Ot Z51.0 ENCOUNTER FOR ANTINEOPLASTIC RADIATION T 05/20/2017 EULOGIO BRAGA MD Ot Z68.34 BODY MASS INDEX (BMI) 34.0-34.9, ADULT 05/20/2017 EULOGIO BRAGA MD Ot Z79.899 OTHER LONGTERM (CURRENT) DRUG THERAPY 05/20/2017 ADE FOWLER Ot Z51.81 ENCOUNTER FOR THERAPEUTIC DRUG LEVEL MON 05/20/2017 ADE FOWLER Ot Z79.899 OTHER LONGTERM (CURRENT) DRUG THERAPY 05/20/2017 EULOGIO BRAGA MD Ot C50.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 05/20/2017 EULOGIO BRAGA MD Ot E66.9 OBESITY, UNSPECIFIED 05/20/2017 EULOGIO BRAGA MD Ot E78.5 HYPERLIPIDEMIA, UNSPECIFIED 05/20/2017 EULOGIO BRAGA MD Ot F17.210 NICOTINE DEPENDENCE, CIGARETTES, UNCOMPL 05/20/2017 EULOGIO BRAGA MD, Ot F31.9 BIPOLAR DISORDER, UNSPECIFIED 05/20/2017 EULOGIO BRAGA MD Ot I10 ESSENTIAL (PRIMARY) HYPERTENSION 05/20/2017 EULOGIO BRAGA MD Ot J44.9 CHRONIC OBSTRUCTIVE PULMONARY DISEASE, U 05/20/2017 EULOGIO BRAGA MD Ot Z17.0 ESTROGEN RECEPTOR POSITIVE STATUS [ER+] 05/20/2017 EULOGIO BRAGA MD Ot Z51.0 ENCOUNTER FOR ANTINEOPLASTIC RADIATION T 05/20/2017 EULOGIO BRAGA MD Ot Z68.34 BODY MASS INDEX (BMI) 34.0-34.9, ADULT 05/20/2017 OMI MURRAY, EULOGIO 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 Procedures There is no [...] FOR INFLUENZA A AND B ANTIGENS BY [facility] Bacterial blood culture - 05/24/16 19:47 Bacterial blood culture [facility] Complete blood count (CBC) with automated white [...] culture - 05/24/16 20:59 Bacterial urine culture [id number] NRG COLONY COUNT >100,000/ML NRG FTX;REPORTABLE PLUS, [...] identification NORMAL NR Comprehensive metabolic panel - 05/26/16 13:34 Serum [...] Blood erythrocyte morphology finding identification NORMAL NRG Comprehensive metabolic panel - 01/07/17 14:53 Serum [...] urinalysis with reflex to culture NO NRG Complete blood count (CBC) with automated white blood cell (WBC) differential - 03/27/17 11:00 Blood leukocytes automated count (number/volume) 5.5 10*3/uL 4.3-11.0 Blood erythrocytes automated count (number/volume) 3.85 10*6/uL 4.35-5.85 Venous blood hemoglobin measurement (mass/volume) 12.8 g/dL 11.5-16.0 Blood hematocrit (volume fraction) 37 % 35-52 Automated erythrocyte mean corpuscular volume 95 [foz_us] 80-99 Automated erythrocyte mean corpuscular hemoglobin (mass per erythrocyte) 33 pg 25-34 Automated erythrocyte mean corpuscular hemoglobin concentration measurement ( mass/volume) 35 g/dL 32-36 Automated erythrocyte distribution width ratio 19.5 % 10.0-14.5 Automated blood platelet count (count/volume) 168 10*3/uL 130-400 Automated blood platelet mean volume measurement 9.4 [foz_us] 7.4-10.4 Automated blood neutrophils/100 leukocytes 63 % 42-75 Automated blood lymphocytes/100 leukocytes 24 % 12-44 Blood monocytes/100 leukocytes 12 % 0-12 Automated blood eosinophils/100 leukocytes 1 % 0-10 Automated blood basophils/100 leukocytes 1 % 0-10 Blood neutrophils automated count (number/volume) 3.5 10*3 1.8-7.8 Blood lymphocytes automated count (number/volume) 1.3 10*3 1.0-4.0 Blood monocytes automated count (number/volume) 0.7 10*3 0.0-1.0 Automated eosinophil count 0.1 10*3/uL 0.0-0.3 Automated blood basophil count (count/volume) 0.0 10*3/uL 0.0-0.1 Comprehensive metabolic panel - 03/27/17 11:00 Serum or plasma sodium measurement (moles/volume) 140 mmol/L 135-145 Serum or plasma potassium measurement (moles/volume) 3.9 mmol/L 3.6-5.0 Serum or plasma chloride measurement (moles/volume) 106 mmol/L 98-107 Carbon dioxide 24 mmol/L 21-32 Serum or plasma anion gap determination (moles/volume) 10 mmol/L 5-14 Serum or plasma urea nitrogen measurement (mass/volume) 6 mg/dL 7-18 Serum or plasma creatinine measurement (mass/volume) 0.66 mg/dL 0.60-1.30 Serum or plasma urea nitrogen/creatinine mass ratio 9 NRG Serum or plasma creatinine measurement with calculation of estimated glomerular filtration rate > NRG Serum or plasma glucose measurement (mass/volume) 99 mg/dL 70-105 Serum or plasma calcium measurement (mass/volume) 9.4 mg/dL 8.5-10.1 Serum or plasma total bilirubin measurement (mass/volume) 0.4 mg/dL 0.1-1.0 Serum or plasma alkaline phosphatase measurement (enzymatic activity/volume) 47 U/L 40-136 Serum or plasma aspartate aminotransferase measurement (enzymatic activity/ volume) 17 U/L 5-34 Serum or plasma alanine aminotransferase measurement (enzymatic activity/volume ) 13 U/L 0-55 Serum or plasma protein measurement (mass/volume) 6.3 g/dL 6.4-8.2 Serum or plasma albumin measurement (mass/volume) 3.7 g/dL 3.2-4.5 Encounters ACCT No. Visit Date/Time Discharge Status Pt. Type Provider Facility Loc./Unit Complaint [id number] 05/20/2017 03:45:00 05/20/2017 06:00:00 DIS Emergency EMILY MURPHY DO [facility] WOLF [id number] 03/30/2017 00:29:00 03/30/2017 23:59:59 CLS Preadmit EULOGIO BRAGA MD [facility] ONC [id number] 01/12/2017 09:52:00 03/29/2017 00:01:00 DIS Outpatient EULOGIO BRAGA MD [facility] ONC [id number] 03/27/2017 10:40:00 03/27/2017 14:16:00 DIS Emergency KARLIE ZHU MD [facility] ER BRAIN TUMOR/HEAD PAIN/ L SIDE PAIN [id number] 01/07/2017 14:47:00 01/07/2017 18:14:00 DIS Emergency KAYLA MELENDEZ APRN [facility] ER N/V [id number] 12/29/2016 09:50:00 12/29/2016 11:15:00 DIS Emergency EMILY MURPHY DO [facility] ER MIGRAINES,NOSEBLEEDS [id number] 07/20/2016 15:28:00 10/18/2016 00:01:00 DIS Outpatient EULOGIO BRAGA MD [facility] ONC [id number] 06/28/2016 08:24:00 06/28/2016 10:05:00 DIS Emergency YANG ELKINS MD [facility] ER BREAST AREA PAIN/ BLISTED/BLEEDING FROM RADIATION [id number] 06/24/2016 09:48:00 06/24/2016 23:59:59 CLS Outpatient EULOGIO BRAGA MD [facility] ONC [id number] 05/26/2016 12:42:00 05/26/2016 15:18:00 DIS Emergency KARLIE ZHU MD [facility] ER RECTAL BLEEDING/PAIN [id number] 05/24/2016 20:35:00 05/25/2016 13:15:00 DIS Inpatient TERRI MURRAY, ABAD Cifuentes [facility] 4TH FEVER,BRONCHITIS,HYPOXIA, BREAST CA-ON CHEMO AND RA [id number] 03/04/2016 10:37:00 03/04/2016 11:16:00 DIS Emergency KAYLA MELENDEZ APRN [facility] ER PAIN/SWELLING RIGHT BREAST AREA [id number] 03/01/2016 10:03:00 03/01/2016 23:59:59 CLS Outpatient ADE FOWLER [facility] LAB [id number] 02/16/2016 08:21:00 02/16/2016 12:11:00 DIS Emergency EDIL QURESHI [facility] ER ANXIETY, NEEDING PORT FLUSHED [id number] 05/13/2015 08:02:00 07/30/2015 00:01:00 DIS Outpatient CEE ALSTON MD [facility] ONC [id number] 05/01/2015 11:17:00 05/01/2015 23:59:59 CLS Outpatient CEE ALSTON MD [facility] CARD BREAST CANCER [id number] 04/22/2015 11:06:00 04/22/2015 23:59:59 CLS Preadmit SANDRA TANG [facility] ONC [id number] 04/07/2015 10:59:00 04/14/2015 00:01:00 DIS Outpatient CEE ALSTON MD [facility] ONC [id number] 04/07/2015 11:51:00 04/07/2015 23:59:59 CLS Outpatient SANDRA TANG [facility] ONC [id number] 04/07/2015 11:17:00 04/07/2015 23:59:59 CLS Outpatient CEE ALSTON MD [facility] CARD BREAST CANCER [id number] 03/19/2015 08:29:00 03/19/2015 13:05:00 DIS Outpatient CAM BRAGA MD [facility] SDC RIGHT BREAST CANCER [id number] 03/17/2015 06:12:00 03/17/2015 23:59:59 CLS Outpatient CAM BRAGA MD [facility] PREOP RIGHT BREAST CANCER [id number] 02/17/2015 10:18:00 02/17/2015 23:59:59 CLS Outpatient CEE ALSTON MD [facility] 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 [id number] 01/24/2015 13:52:00 01/24/2015 23:59:59 CLS Outpatient CEE ALSTON MD [facility] CARD ENCOUNTER FOR MONITORING CARDIOTOXIC DRUGS [id number] 01/23/2015 14:18:00 01/23/2015 23:59:59 CLS Outpatient SANDRA TANG [facility] ONC [id number] 01/23/2015 09:31:00 01/23/2015 23:59:59 CLS Outpatient CEE ALSTON MD [facility] RAD BREAST CA [id number] 01/22/2015 14:57:00 01/22/2015 23:59:59 CLS Outpatient CEE ALSTON MD [facility] RAD ABN MAMMO [id number] 01/17/2015 09:42:00 01/17/2015 23:59:59 CLS Outpatient CEE ALSTON MD [facility] CARD ENCOUNTER FOR MONITOR CARDIO TOXIC DRUG THERAPY [id number] 01/17/2015 09:38:00 01/17/2015 17:00:00 DIS [facility] [id number] 01/15/2015 13:52:00 01/15/2015 23:59:59 CLS Outpatient SHERRY ROGEL MD (DDU) [facility] RT DDU [id number] 01/15/2015 05:43:00 01/15/2015 23:59:59 CLS Outpatient CAM BRAGA MD [facility] PREOP [id number] 01/03/2015 07:05:00 01/03/2015 23:59:59 CLS Outpatient DARÍO BURROWS APRN [facility] RAD ABNORMAL MAMMO, BREAST MASS [id number] 01/01/2015 14:58:00 01/01/2015 23:59:59 CLS Outpatient DARÍO BURROWS APRN [facility] RAD BREAST PAIN RT BREAST [id number] 12/25/2014 16:08:00 12/25/2014 17:23:00 DIS Emergency KAYLA MELENDEZ BIOLOGICAL SCIENCE TECHNICIAN [facility] ER R BREAST SWELLING/ TENDERNESS [id number] 12/19/2014 08:51:00 12/19/2014 11:43:00 DIS Emergency REGINALDO ANNA MD [facility] ER COUGH/FEVER [id number] 11/21/2014 11:43:00 11/21/2014 13:07:00 DIS Emergency KAYLA MELENDEZ BIOLOGICAL SCIENCE TECHNICIAN [facility] ER SOA [id number] 11/08/2014 14:38:00 11/08/2014 16:53:00 DIS Emergency REGINALDO ANNA MD [facility] ER SOA [id number] 10/28/2014 14:21:00 10/28/2014 23:59:59 CLS Outpatient DARÍO BURROWS APRN [facility] RAD LOCALIZE SWELLING MASS OR HEAD 3 ABNORMAL GROWTHS [id number] 10/11/2014 09:35:00 10/11/2014 10:09:00 DIS Emergency REGINALDO ANNA MD [facility] ER RASH [id number] 09/27/2014 09:09:00 09/27/2014 10:19:00 DIS Emergency KARLIE ZHU MD [facility] ER
[2017-08-02] MEDS ORDERED: HYOS0.1283 SL (11:53)
[2017-08-02] MEDS ORDERED: HYDR-3820 PO (11:53)
== END 2017-05-20 06:00 | disposition home or self-care (01) ==
LOC: EDUNIT# 03:44 → ER 03:45
DX: R51 Headache (principal); C50.911 Malignant neoplasm of unspecified site of right female breast; C50.912 Malignant neoplasm of unspecified site of left female breast; C79.31 Secondary malignant neoplasm of brain; R11.2 Nausea with vomiting, unspecified; E78.00 Pure hypercholesterolemia, unspecified; I10 Essential (primary) hypertension; K21.9 Gastro-esophageal reflux disease without esophagitis; M06.9 Rheumatoid arthritis, unspecified; J45.909 Unspecified asthma, uncomplicated; F41.9 Anxiety disorder, unspecified; F31.9 Bipolar disorder, unspecified; F17.210 Nicotine dependence, cigarettes, uncomplicated; Z87.59 Personal history of other complications of pregnancy, childbirth and the puerperium; Z85.3 Personal history of malignant neoplasm of breast; Z90.13 Acquired absence of bilateral breasts and nipples; Z85.828 Personal history of other malignant neoplasm of skin; Z92.21 Personal history of antineoplastic chemotherapy
CPT/HCPCS: 36415; 70450; 80053; 82150; 83690; 83735; 85025; 96361; 96374; 96375

== ENCOUNTER 2017-05-21 07:55 | Emergency (ER) | payer MEDICARE, MEDICAID ==
[~2017-05-21] VITALS: Ht 165.1 cm; Wt 76.1 kg
[~2017-05-21 07:55] MED LIST changes: +PROM25SU43 RC
--- NOTE | 2017-05-21 08:29 | ED Chest Pain ---
General Chief Complaint: Chest Pain Stated Complaint: CHEST PAIN Source: patient Exam Limitations: no limitations History of Present Illness Date Seen by Provider: May 21, 2017 Time Seen by Provider: 08:25 Initial Comments This 49-year-old white female presents with a complaint of chest pain. Patient' s complaining of sharp epigastric lower chest pain that is severe in nature. Patient denies associated nausea, vomiting, shortness of breath, palpitations, fever or chill, or other acute symptom. Patient's breast cancer is metastasized to the brain. Her oncologist has told her that her prognosis is terminal. Patient is in the process of beginning evaluation at oncology later this month. Patient's been using tramadol home for pain without relief. Patient uses Phenergan and or Compazine for nausea. Allergies and Home Medications Allergies Coded Allergies: No Known Drug Allergies (Unverified , 09/27/14) Home Medications Dexamethasone 4 Mg Tablet, 8 MG PO QID Prescribed by: EMILY MURPHY on 12/29/16 1114 Divalproex Sodium 500 Mg Tab.er.24h, 2,000 MG PO HS, (Reported) TAKES 4 (500MG) TABLETS Lorazepam 1 Mg Tablet, 1 MG PO Q6H Prescribed by: EMILY MURPHY on 12/29/16 1114 Promethazine HCl 25 Mg Supp.rect, 25 MG RC Q4H Prescribed by: EMILY MURPHY on 05/20/17 0549 Patient Home Medication List Home Medication List Reviewed: Yes Review of Systems Constitutional: No chills, No fever EENTM: No Symptoms Reported Respiratory: Denies Cough, Denies SOA at Rest Cardiovascular: Denies Chest Pain Gastrointestinal: Denies Abdomen Distended; Nausea Genitourinary: No Symptoms Reported Musculoskeletal: no symptoms reported Skin: No rash Psychiatric/Neurological: No Symptoms Reported Endocrine: No Symptoms Reported Hematologic/Lymphatic: No Symptoms Reported Past Ncploae-Giwlsv-Nfxpqa Hx Patient Social History Type Used: Cigarettes 2nd Hand Smoke Exposure: Yes Recent Foreign Travel: No Contact w/Someone Who Travel: No Recent Hopitalizations: No Immunizations Up To Date Tetanus Booster (TDap): Unknown Seasonal Allergies Seasonal Allergies: No Past Medical History Surgeries: Yes (INFUSAPORT; BILATERAL MASTECTOMY) Breast, Section, Gallbladder, Vascular Surgery Respiratory: Yes Asthma Cardiac: Yes High Cholesterol, Hypertension Neurological: Yes (BRAIN METS FROM BREAST CANCER) 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: No (THROUGH MENOPAUSE) Female 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 Sexually Transmitted Disease: No HIV/AIDS: No Genitourinary: No Gastrointestinal: Yes Gastroesophageal Reflux Musculoskeletal: Yes Rheumatoid Arthritis, Chronic Back Pain Endocrine: No HEENT: Yes (TEETH REMOVED) Loss of Vision: Denies Hearing Impairment: Denies Cancer: Yes Skin, Breast Did You Recieve Any Treatments: Yes What Type of Treatment Did You: Chemotherapy, Radiation, Surgical Intervention Psychosocial: Yes Anxiety, Bipolar, Personality Disorder, Depression Integumentary: No Blood Disorders: No Adverse Reaction/Blood Tranf: No (HAS HAD BLOOD TRANSFUSION WITH NO PROBLEM) Family Medical History Reviewed Nursing Family Hx Not obtainable due to adoption (ADOPTION) No Pertinent Family Hx Physical Exam Vital Signs Vital Signs - First Documented 05/21/17 07:55 Temp 96.5 Pulse 84 Resp 18 B/P (MAP) 117/88 (98) Pulse Ox 98 O2 Delivery Room Air Capillary Refill : General Appearance: Cachetic, Mild Distress HEENT: Normal ENT Inspection Neck: Full Range of Motion, Normal Inspection, Non Tender, Supple Respiratory: Decreased Breath Sounds Cardiovascular: Regular Rate, Rhythm Gastrointestinal: Normal Bowel Sounds, Non Tender, Soft Extremity: Normal Capillary Refill, Normal Inspection, Normal Range of Motion Neurologic/Psychiatric: Alert, Oriented x3, No Motor/Sensory Deficits, Normal Mood/Affect Skin: Normal Color, Warm/Dry Progress/Results/Core Measures Lab Results Laboratory Tests Test 05/21/17 08:15 Range/Units White Blood Count 4.0 L 4.3-11.0 10^3/uL Red Blood Count 3.97 L 4.35-5.85 10^6/uL Hemoglobin 13.1 11.5-16.0 G/DL Hematocrit 38 35-52 % Mean Corpuscular Volume 95 80-99 FL Mean Corpuscular Hemoglobin 33 25-34 PG Mean Corpuscular Hemoglobin Concent 35 32-36 G/DL Red Cell Distribution Width 16.7 H 10.0-14.5 % Platelet Count 153 130-400 10^3/uL Mean Platelet Volume 9.8 7.4-10.4 FL Neutrophils (%) (Auto) 64 42-75 % Lymphocytes (%) (Auto) 28 12-44 % Monocytes (%) (Auto) 8 0-12 % Eosinophils (%) (Auto) 0 0-10 % Basophils (%) (Auto) 0 0-10 % Neutrophils # (Auto) 2.5 1.8-7.8 X 10^3 Lymphocytes # (Auto) 1.1 1.0-4.0 X 10^3 Monocytes # (Auto) 0.3 0.0-1.0 X 10^3 Eosinophils # (Auto) 0.0 0.0-0.3 10^3/uL Basophils # (Auto) 0.0 0.0-0.1 10^3/uL Sodium Level 141 135-145 MMOL/L Potassium Level 3.8 3.6-5.0 MMOL/L Chloride Level 108 H 98-107 MMOL/L Carbon Dioxide Level 23 21-32 MMOL/L Anion Gap 10 5-14 MMOL/L Blood Urea Nitrogen 6 L 7-18 MG/DL Creatinine 0.65 0.60-1.30 MG/DL Estimat Glomerular Filtration Rate > 60 BUN/Creatinine Ratio 9 Glucose Level 94 70-105 MG/DL Calcium Level 9.2 8.5-10.1 MG/DL Total Bilirubin 0.5 0.1-1.0 MG/DL Aspartate Amino Transf (AST/SGOT) 17 5-34 U/L Alanine Aminotransferase (ALT/SGPT) 11 0-55 U/L Alkaline Phosphatase 38 L 40-136 U/L Total Protein 6.5 6.4-8.2 GM/DL Albumin 3.7 3.2-4.5 GM/DL Lipase 11 8-78 U/L My Orders Orders - NOELLE MAK MD Morphine Injection (Morphine Injection (05/21/17 08:30) Promethazine Injection (Phenergan Injec (05/21/17 08:30) Diphenhydramine Injection (Benadryl Inje (05/21/17 08:30) Ns Iv 1000 Ml (Sodium Chloride 0.9%) (05/21/17 08:30) Cbc With Automated Diff (05/21/17 08:23) Comprehensive Metabolic Panel (05/21/17 08:23) Lipase (05/21/17 08:23) Ua Culture If Indicated (05/21/17 08:23) Chest 1 View, Ap/Pa Only (05/21/17 08:23) Iohexol Injection (Omnipaque 350 Mg/Ml 1 (05/21/17 09:00) Sodium Chloride Flush (Catheter Flush Sy (05/21/17 09:00) Ns (Ivpb) (Sodium Chloride 0.9%) (05/21/17 09:00) Pharmacy Communication (Pharmacy Communi (05/21/17 08:50) Ct Abdomen/Pelvis Wo (05/21/17 08:23) Ekg Tracing (05/21/17 08:00) Medications Given in ED Current Medications Medications Dose Ordered Sig/Nilda Route Start Time Stop Time Status Last Admin Dose Admin Diphenhydramine HCl 25 mg ONCE ONCE IM 05/21/17 08:30 05/21/17 08:31 DC 05/21/17 08:41 25 MG Morphine Sulfate 10 mg ONCE ONCE IVP 05/21/17 08:30 05/21/17 08:31 DC 05/21/17 08:41 10 MG Promethazine HCl 25 mg ONCE ONCE IVP 05/21/17 08:30 05/21/17 08:31 DC 05/21/17 08:41 25 MG Vital Signs/I&O 05/21/17 05/21/17 07:55 07:55 Temp 96.5 Pulse 84 Resp 18 B/P (MAP) 117/88 (98) Pulse Ox 98 O2 Delivery Room Air Progress Note : Time: 10:[address] of the abdomen and chest x-ray were unremarkable. Patient's CMP and CBC were similarly benign. Patient was treated with 10 mg of IV morphine and 25 mg IV and Phenergan with good relief of her pain and nausea. Patient will take him a prescription of morphine. She is going to follow through with [facility] as scheduled late this month. She promises to return the emergency Department if she has any further problems or questions. Departure Impression Primary Impression: Abdominal pain Qualified Codes: R10.84 - Generalized abdominal pain Additional Impression: Metastatic cancer Disposition: HOME, SELF-CARE Condition: Improved Departure-Patient Inst. Decision time for Depature: 10:57 Referrals: ABAD LONDONO MD (PCP/Family) Primary Care Physician Patient Instructions: Breast Cancer (DC) Add. Discharge Instructions: Morphine for pain. Follow-up with Dr. Londono and [facility] on Tuesday and has scheduled respectively. Return if any problems or questions. All discharge instructions reviewed with patient and/or family. Voiced understanding. NOELLE MAK MD May 21, 2017 08:29
[2017-05-21] MEDS ORDERED: diphenhydrAMINE 50 MG/ML INJ (BENADRYL) IM ONE (08:30)
[2017-05-21] MEDS ORDERED: NS IV 1000 ML 1,000 ML IV SCH (08:30)
[2017-05-21] MEDS ORDERED: morphine INJ 10 MG/ML 1ML (SYR OR VIAL) IVP ONE (08:30)
[2017-05-21] MEDS ORDERED: PROMETHAZINE INJ 25 MG/ML (PHENERGAN) AMP IVP ONE (08:30)
[2017-05-21] MEDS ORDERED: TRAM50TA2 (08:35)
[2017-05-21 08:45] LABS: BASOPHILS % (AUTO) 0 % (0-10); EOSINOPHILS % (AUTO) 0 % (0-10); HEMATOCRIT 38 % (35-52); HEMOGLOBIN 13.1 G/DL (11.5-16.0); LYMPHOCYTES # (AUTO) 1.1 X 10^3 (1.0-4.0); LYMPHOCYTES % (AUTO) 28 % (12-44); MEAN CORPUSCULAR HEMOGLOBIN 33 PG (25-34); MEAN CORPUSCULAR HGB CONC 35 G/DL (32-36); MEAN CORPUSCULAR VOLUME 95 FL (80-99); MEAN PLATELET VOLUME 9.8 FL (7.4-10.4); MONOCYTES # (AUTO) 0.3 X 10^3 (0.0-1.0); MONOCYTES % (AUTO) 8 % (0-12); NEUTROPHILS # (AUTO) 2.5 X 10^3 (1.8-7.8); NEUTROPHILS % (AUTO) 64 % (42-75); PLATELET COUNT 153 10^3/uL (130-400); RED BLOOD COUNT 3.97 10^6/uL (4.35-5.85); RED CELL DISTRIBUTION WIDTH 16.7 % (10.0-14.5)
[2017-05-21] MEDS ORDERED: CATHETER FLUSH 10 ML SYR IV PRN (09:00)
[2017-05-21] MEDS ORDERED: IOHEXOL 350 MG/ML 100 ML (OMNIPAQUE 350) VIAL IV ONE (09:00)
[2017-05-21] MEDS ORDERED: NS 250 ML (IVPB) BAG IV ONE (09:00)
[2017-05-21 09:08] LABS: ALANINE AMINOTRANSFERASE 11 U/L (0-55); ALBUMIN 3.7 GM/DL (3.2-4.5); ALKALINE PHOSPHATASE 38 U/L (40-136); BILIRUBIN,TOTAL 0.5 MG/DL (0.1-1.0); BUN/CREATININE RATIO 9; CALCIUM 9.2 MG/DL (8.5-10.1); CARBON DIOXIDE 23 MMOL/L (21-32); CHLORIDE 108 MMOL/L (98-107); CREATININE SERUM 0.65 MG/DL (0.60-1.30); GFR ESTIMATED > 60; GLUCOSE 94 MG/DL (70-105); LIPASE 11 U/L (8-78); POTASSIUM 3.8 MMOL/L (3.6-5.0); SODIUM 141 MMOL/L (135-145); TOTAL PROTEIN 6.5 GM/DL (6.4-8.2)
--- NOTE | 2017-05-21 09:17 | Diagnostic Imaging Report ---
PROCEDURE: CT abdomen and pelvis without contrast. TECHNIQUE: Multiple contiguous axial images were obtained through the abdomen and pelvis without the use of intravenous contrast. INDICATION: Epigastric pain. Breast cancer. COMPARISON: None. FINDINGS: Minimal linear scarring or atelectasis in the right lung base. Cholecystectomy. The liver, pancreas, spleen, adrenals, kidneys, bladder and collecting systems are unremarkable on this noncontrast exam. The reproductive structures are grossly unremarkable. The appendix is not identified and may be surgically absent. No suspicious inflammatory findings in the region of the cecum. Moderate sigmoid colonic diverticulosis. No evidence of active diverticulitis. Mild atherosclerotic calcifications including a normal caliber abdominal aorta. No free intraperitoneal air or fluid. No evidence of bowel obstruction. No lymphadenopathy. Osseous structures are unremarkable. IMPRESSION: No acute CT findings in the abdomen or pelvis. Dictated by: Dictated on workstation # [id number]
--- NOTE | 2017-05-21 09:18 | Diagnostic Imaging Report ---
EXAM: CHEST 1 VIEW, AP/PA ONLY INDICATION: Chest pain. History of breast cancer. COMPARISON: Chest radiographs 05/25/2016. FINDINGS: Normal heart size and pulmonary vascularity. Left IJ tunneled port CVC tip low SVC. No focal pulmonary opacity, pleural effusion or pneumothorax. No acute osseous findings. Cholecystectomy clips. IMPRESSION: No acute cardiopulmonary findings. Dictated by: Dictated on workstation # [id number]
[2017-05-21 11:08] VITALS: BP 110/78
[2017-08-02] MEDS ORDERED: HYDR-3820 PO (11:53)
[2017-08-02] MEDS ORDERED: HYOS0.1283 SL (11:53)
== END 2017-05-21 11:13 | disposition home or self-care (01) ==
LOC: EDUNIT# 08:01 → ER 08:03
DX: R10.13 Epigastric pain (principal); C50.911 Malignant neoplasm of unspecified site of right female breast; C79.31 Secondary malignant neoplasm of brain; E78.00 Pure hypercholesterolemia, unspecified; J45.909 Unspecified asthma, uncomplicated; I10 Essential (primary) hypertension; F41.9 Anxiety disorder, unspecified; F31.9 Bipolar disorder, unspecified; M06.9 Rheumatoid arthritis, unspecified; K21.9 Gastro-esophageal reflux disease without esophagitis; F60.9 Personality disorder, unspecified; Z92.21 Personal history of antineoplastic chemotherapy; Z92.3 Personal history of irradiation; Z87.59 Personal history of other complications of pregnancy, childbirth and the puerperium; Z90.13 Acquired absence of bilateral breasts and nipples; Z77.22 Contact with and (suspected) exposure to environmental tobacco smoke (acute) (chronic)
CPT/HCPCS: 36415; 71045; 74176; 80053; 83690; 85025; 93005; 96361; 96372; 96374; 96375

== ENCOUNTER 2017-06-03 11:52 | Emergency (ER) | payer MEDICARE, MEDICAID ==
[~2017-06-03] VITALS: Ht 165.1 cm; Wt 72.6 kg
[~2017-06-03 11:52] MED LIST changes: -DIVA-76 PO; +DIVA500T7 PO; +TRAM50TA2
[2017-06-03] MEDS ORDERED: morphine INJ 10 MG/ML 1ML (SYR OR VIAL) IVP ONE (12:00)
--- NOTE | 2017-06-03 12:02 | ED Chest Pain ---
General Stated Complaint: JAW PAIN Source: patient Exam Limitations: no limitations History of Present Illness Date Seen by Provider: Jun 03, 2017 Time Seen by Provider: 12:00 Initial Comments To ER per EMS from home with reports of central chest pain and jaw pain. 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 She states that she is to start some sort of infusion at [facility] on June 14. I am uncertain whether or not this is just palliative. Her chest pain is central chest, and she states that her jaws feel like they're going to break when she yawns. She was formerly on morphine at home for pain but ran out of this a few days ago. Timing/Duration: changing over time Severity/Quality: moderate Location: central Radiation: no radiation ASA po COLLECTIONS REP: No NTG SL COLLECTIONS REP: No Associated Symptoms: shortness of breath Allergies and Home Medications Allergies Coded Allergies: No Known Drug Allergies (Unverified , 09/27/14) Home Medications Dexamethasone 4 Mg Tablet, 8 MG PO QID Prescribed by: EMILY MURPHY on 12/29/16 1114 Divalproex Sodium 500 Mg Tab.er.24h, 2,000 MG PO HS, (Reported) TAKES 4 (500MG) TABLETS Lorazepam 1 Mg Tablet, 1 MG PO Q6H Prescribed by: EMILY MURPHY on 12/29/16 1114 Promethazine HCl 25 Mg Supp.rect, 25 MG RC Q4H Prescribed by: EMILY MURPHY on 05/20/17 0549 Patient Home Medication List Home Medication List Reviewed: Yes Review of Systems Constitutional: see HPI EENTM: No Symptoms Reported Respiratory: No Symptoms Reported Cardiovascular: See HPI, Chest Pain Gastrointestinal: No Symptoms Reported Genitourinary: No Symptoms Reported Musculoskeletal: no symptoms reported Skin: no symptoms reported Psychiatric/Neurological: No Symptoms Reported Endocrine: No Symptoms Reported Past Bldzfnw-Dlwonb-Tjuibg Hx Patient Social History Type Used: Cigarettes 2nd Hand Smoke Exposure: Yes Recent Hopitalizations: No Immunizations Up To Date Tetanus Booster (TDap): Unknown Seasonal Allergies Seasonal Allergies: No Past Medical History Surgeries: Yes (INFUSAPORT; BILATERAL MASTECTOMY) Breast, Section, Gallbladder, Vascular Surgery Respiratory: Yes Asthma Cardiac: Yes High Cholesterol, Hypertension Neurological: Yes (BRAIN METS FROM BREAST CANCER) 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: No (THROUGH MENOPAUSE) Female 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 Sexually Transmitted Disease: No HIV/AIDS: No Genitourinary: No Gastrointestinal: Yes Gastroesophageal Reflux Musculoskeletal: Yes Rheumatoid Arthritis, Chronic Back Pain Endocrine: No HEENT: Yes (TEETH REMOVED) Loss of Vision: Denies Hearing Impairment: Denies Cancer: Yes Skin, Breast Did You Recieve Any Treatments: Yes What Type of Treatment Did You: Chemotherapy, Radiation, Surgical Intervention Psychosocial: Yes Anxiety, Bipolar, Personality Disorder, Depression Integumentary: No Blood Disorders: No Adverse Reaction/Blood Tranf: No (HAS HAD BLOOD TRANSFUSION WITH NO PROBLEM) Family Medical History Not obtainable due to adoption (ADOPTION) No Pertinent Family Hx Physical Exam Vital Signs Vital Signs - First Documented 06/03/17 12:18 Temp 97.2 Pulse 98 Resp 18 B/P (MAP) 146/97 (113) Pulse Ox 97 Capillary Refill : General Appearance: No Apparent Distress, WD/WN HEENT: PERRL/EOMI, TMs Normal Neck: Full Range of Motion, Normal Inspection Respiratory: No Accessory Muscle Use, No Respiratory Distress Cardiovascular: Regular Rate, Rhythm, Normal Peripheral Pulses Gastrointestinal: Normal Bowel Sounds, Non Tender, Soft Extremity: Normal Capillary Refill, Normal Inspection Neurologic/Psychiatric: Alert, Oriented x3, No Motor/Sensory Deficits Skin: Normal Color, Warm/Dry Progress/Results/Core Measures Lab Results Laboratory Tests Test 06/03/17 12:05 Range/Units White Blood Count 4.5 4.3-11.0 10^3/uL Red Blood Count 4.35 4.35-5.85 10^6/uL Hemoglobin 14.3 11.5-16.0 G/DL Hematocrit 41 35-52 % Mean Corpuscular Volume 94 80-99 FL Mean Corpuscular Hemoglobin 33 25-34 PG Mean Corpuscular Hemoglobin Concent 35 32-36 G/DL Red Cell Distribution Width 16.7 H 10.0-14.5 % Platelet Count 187 130-400 10^3/uL Mean Platelet Volume 9.5 7.4-10.4 FL Neutrophils (%) (Auto) 69 42-75 % Lymphocytes (%) (Auto) 21 12-44 % Monocytes (%) (Auto) 9 0-12 % Eosinophils (%) (Auto) 1 0-10 % Basophils (%) (Auto) 0 0-10 % Neutrophils # (Auto) 3.1 1.8-7.8 X 10^3 Lymphocytes # (Auto) 0.9 L 1.0-4.0 X 10^3 Monocytes # (Auto) 0.4 0.0-1.0 X 10^3 Eosinophils # (Auto) 0.0 0.0-0.3 10^3/uL Basophils # (Auto) 0.0 0.0-0.1 10^3/uL Sodium Level 142 135-145 MMOL/L Potassium Level 3.0 L 3.6-5.0 MMOL/L Chloride Level 105 98-107 MMOL/L Carbon Dioxide Level 26 21-32 MMOL/L Anion Gap 11 5-14 MMOL/L Blood Urea Nitrogen 4 L 7-18 MG/DL Creatinine 0.66 0.60-1.30 MG/DL Estimat Glomerular Filtration Rate > 60 BUN/Creatinine Ratio 6 Glucose Level 112 H 70-105 MG/DL Calcium Level 9.3 8.5-10.1 MG/DL Total Bilirubin 0.5 0.1-1.0 MG/DL Aspartate Amino Transf (AST/SGOT) 22 5-34 U/L Alanine Aminotransferase (ALT/SGPT) 18 0-55 U/L Alkaline Phosphatase 53 40-136 U/L Troponin I < 0.30 <0.30 NG/ML Total Protein 6.5 6.4-8.2 GM/DL Albumin 3.6 3.2-4.5 GM/DL My Orders Orders - KAYLA MELENDEZ APRN Cbc With Automated Diff (06/03/17 11:58) Comprehensive Metabolic Panel (06/03/17 11:58) Troponin I (06/03/17 11:58) Ekg Tracing (06/03/17 11:58) Chest 1 View, Ap/Pa Only (06/03/17 11:58) Morphine Injection (Morphine Injection (06/03/17 12:00) Lactated Ringers (Lr 1000 Ml Iv Solution (06/03/17 12:15) Medications Given in ED Current Medications Medications Dose Ordered Sig/Nilda Route Start Time Stop Time Status Last Admin Dose Admin Morphine Sulfate 5 mg ONCE ONCE IVP 06/03/17 12:00 06/03/17 12:03 DC 06/03/17 12:10 5 MG Vital Signs/I&O 06/03/17 12:18 Temp 97.2 Pulse 98 Resp 18 B/P (MAP) 146/97 (113) Pulse Ox 97 Departure Impression Primary Impression: Diffuse pain Additional Impression: Breast cancer metastasized to brain Disposition: 01 HOME, SELF-CARE Condition: Stable Departure-Patient Inst. Decision time for Depature: 13:18 Referrals: ABAD MURRAY MD (PCP/Family) Primary Care Physician Patient Instructions: Chest Pain Add. Discharge Instructions: 1. Return to ER for any concerns 2. Follow-up with your doctor next week 3. KAYLA MELENDEZ APRN Jun 03, 2017 12:02
[2017-06-03 12:12] LABS: BASOPHILS % (AUTO) 0 % (0-10); EOSINOPHILS % (AUTO) 1 % (0-10); HEMATOCRIT 41 % (35-52); HEMOGLOBIN 14.3 G/DL (11.5-16.0); LYMPHOCYTES # (AUTO) 0.9 X 10^3 (1.0-4.0); LYMPHOCYTES % (AUTO) 21 % (12-44); MEAN CORPUSCULAR HEMOGLOBIN 33 PG (25-34); MEAN CORPUSCULAR HGB CONC 35 G/DL (32-36); MEAN CORPUSCULAR VOLUME 94 FL (80-99); MEAN PLATELET VOLUME 9.5 FL (7.4-10.4); MONOCYTES # (AUTO) 0.4 X 10^3 (0.0-1.0); MONOCYTES % (AUTO) 9 % (0-12); NEUTROPHILS # (AUTO) 3.1 X 10^3 (1.8-7.8); NEUTROPHILS % (AUTO) 69 % (42-75); PLATELET COUNT 187 10^3/uL (130-400); RED BLOOD COUNT 4.35 10^6/uL (4.35-5.85); RED CELL DISTRIBUTION WIDTH 16.7 % (10.0-14.5); WHITE BLOOD COUNT 4.5 10^3/uL (4.3-11.0)
[2017-06-03] MEDS ORDERED: LACTATED RINGERS 1,000 ML IV SCH (12:15)
[2017-06-03 12:29] LABS: ALANINE AMINOTRANSFERASE 18 U/L (0-55); ALBUMIN 3.6 GM/DL (3.2-4.5); ALKALINE PHOSPHATASE 53 U/L (40-136); BILIRUBIN,TOTAL 0.5 MG/DL (0.1-1.0); BUN/CREATININE RATIO 6; CALCIUM 9.3 MG/DL (8.5-10.1); CARBON DIOXIDE 26 MMOL/L (21-32); CHLORIDE 105 MMOL/L (98-107); CREATININE SERUM 0.66 MG/DL (0.60-1.30); GFR ESTIMATED > 60; GLUCOSE 112 MG/DL (70-105); SODIUM 142 MMOL/L (135-145); TOTAL PROTEIN 6.5 GM/DL (6.4-8.2)
[2017-06-03] MEDS ORDERED: IOHEXOL 350 MG/ML 100 ML (OMNIPAQUE 350) VIAL IV ONE (12:30)
[2017-06-03] MEDS ORDERED: NS 250 ML (IVPB) BAG IV ONE (12:30)
[2017-06-03] MEDS ORDERED: CATHETER FLUSH 10 ML SYR IV PRN (12:30)
--- NOTE | 2017-06-03 12:34 | Diagnostic Imaging Report ---
INDICATION: Chest pain. COMPARISON: 05/21/2017. FINDINGS: Stable left IJ Port-A-Cath. Visible lungs are clear. No pleural effusion or pneumothorax. Posterior lower lobes are poorly evaluated by portable radiography. Normal heart size and mediastinal silhouette. IMPRESSION: No acute cardiopulmonary process by portable radiography. Dictated by: Dictated on workstation # [id number]
[2017-06-03 13:54] VITALS: BP 146/97
== END 2017-06-03 13:57 | disposition home or self-care (01) ==
LOC: EDUNIT# 11:52 → ER 11:53
DX: J45.909 Unspecified asthma, uncomplicated (principal); R07.89 Other chest pain; C50.911 Malignant neoplasm of unspecified site of right female breast; C79.31 Secondary malignant neoplasm of brain; E78.00 Pure hypercholesterolemia, unspecified; I10 Essential (primary) hypertension; K21.9 Gastro-esophageal reflux disease without esophagitis; M06.9 Rheumatoid arthritis, unspecified; F41.9 Anxiety disorder, unspecified; F31.9 Bipolar disorder, unspecified; Z85.828 Personal history of other malignant neoplasm of skin; Z79.52 Long term (current) use of systemic steroids; Z87.59 Personal history of other complications of pregnancy, childbirth and the puerperium; Z90.13 Acquired absence of bilateral breasts and nipples
CPT/HCPCS: 36415; 71045; 80053; 84484; 85025; 93005; 96374

== ENCOUNTER 2017-06-29 11:26 | Emergency (ER) | payer MEDICARE, MEDICAID ==
[~2017-06-29] VITALS: Ht 165.1 cm; Wt 66.7 kg
--- OUTSIDE RECORDS SUMMARY | 2017-06-29 11:45 | XMS REPORT | Continuity of Care Document ---
Author Author [facility] Organization [facility] Address Unknown Phone Unavailable Allergies Active Description Code Type Severity Reaction Onset Reported/Identified Relationship to Patient Clinical Status Yes No Known Drug Allergies [id number] Drug Allergy Unknown N/A 09/27/2014 Medications There is no data. Problems Date Dx Coded Attending Type Code Diagnosis Diagnosed By 09/27/2014 KALRIE ZHU MD Ot 053.9 HERPES ZOSTER NOS 09/27/2014 KARLIE ZHU MD Ot V68.1 ISSUE REPEAT PRESCRIPT 10/11/2014 REGINALDO ANNA MD Ot 692.6 DERMATITIS DUE TO PLANT 10/11/2014 REGINALDO ANNA MD Ot 782.1 NONSPECIF SKIN ERUPT NEC 11/08/2014 DARÍO BURROWS SPEECH LANGUAGE PATHOLOGIST Ot 784.2 11/08/2014 REGINALDO ANNA MD Ot F17.210 NICOTINE DEPENDENCE, CIGARETTES, UNCOMPL 11/08/2014 REGINALDO ANNA MD Ot J44.1 CHRONIC OBSTRUCTIVE PULMONARY DISEASE W 11/08/2014 REGINALDO ANNA MD Ot R06.02 SHORTNESS OF BREATH 11/08/2014 DARÍO BURROWS SPEECH LANGUAGE PATHOLOGIST Ot 784.2 11/19/2014 DARÍO BURROWS SPEECH LANGUAGE PATHOLOGIST Ot 784.2 11/21/2014 KAYLA MELENDEZ APRN Ot [...] Ot R50.9 FEVER, UNSPECIFIED 12/25/2014 KAYLA MELENDEZ SPEECH LANGUAGE PATHOLOGIST Ot F17.210 NICOTINE DEPENDENCE, CIGARETTES, UNCOMPL 12/25/2014 KAYLA MELENDEZ SPEECH LANGUAGE PATHOLOGIST Ot N64.9 DISORDER OF BREAST, UNSPECIFIED 01/09/2015 DARÍO BURROWS SPEECH LANGUAGE PATHOLOGIST Ot N64.4 01/09/2015 DARÍO BURROWS SPEECH LANGUAGE PATHOLOGIST Ot N64.4 01/10/2015 STORMY DARÍO You SPEECH LANGUAGE PATHOLOGIST Ot N64.4 01/10/2015 ROB BURROWSYARELY You SPEECH LANGUAGE PATHOLOGIST Ot N63 01/10/2015 STORMY DARÍO You SPEECH LANGUAGE PATHOLOGIST Ot R92.8 01/14/2015 STORMY DARÍO You SPEECH LANGUAGE PATHOLOGIST Ot N64.4 01/14/2015 STORMY DARÍO You SPEECH LANGUAGE PATHOLOGIST Ot N63 01/14/2015 STORMY DARÍO You SPEECH LANGUAGE PATHOLOGIST Ot R92.8 01/17/2015 STORMY DARÍO You SPEECH LANGUAGE PATHOLOGIST Ot N64.4 01/17/2015 STORMY DARÍO You SPEECH LANGUAGE PATHOLOGIST Ot N63 01/17/2015 STORMY DARÍO You SPEECH LANGUAGE PATHOLOGIST Ot R92.8 01/17/2015 MARIA LUZ MURRAY, CAM [...] You (DDU) Ot Z02.71 01/22/2015 DARÍO BURROWS SPEECH LANGUAGE PATHOLOGIST Ot N64.4 01/22/2015 DARÍO BURROWS SPEECH LANGUAGE PATHOLOGIST Ot N63 01/22/2015 DARÍO BURROWS SPEECH LANGUAGE PATHOLOGIST Ot R92.8 01/22/2015 GAMALIEL MURRAY, CEE K [...] MD (DDU) Ot Z02.71 01/24/2015 DARÍO BURROWS SPEECH LANGUAGE PATHOLOGIST Ot N64.4 01/24/2015 DARÍO BURROWS SPEECH LANGUAGE PATHOLOGIST Ot N63 01/24/2015 DARÍO BURROWS SPEECH LANGUAGE PATHOLOGIST Ot R92.8 01/24/2015 GAMALIEL MURRAY, CEE K [...] K Ot R92.8 01/24/2015 KITTY SANDRA S NET TRAINER Ot C50.511 01/24/2015 KITTY SANDRA S NET TRAINER Ot E66.9 01/24/2015 KITTY SANDRA S NET TRAINER Ot E78.5 01/24/2015 KARIN TANGAH S NET TRAINER Ot F17.210 01/24/2015 KITTY SANDRA S NET TRAINER Ot F31.9 01/24/2015 KARIN TANGSINGH S NET TRAINER Ot I10 01/24/2015 KARIN TANGSINGH S NET TRAINER Ot J44.9 01/24/2015 KITTY SANDRA S NET TRAINER Ot Z17.1 01/24/2015 KITTY SANDRA S NET TRAINER Ot Z68.35 01/24/2015 KITTY SANDRA S NET TRAINER Ot Z79.899 01/24/2015 GAMALIEL MURRAY, CEE Pryor Ot R92.8 01/24/2015 KITTY SANDRA S NET TRAINER Ot C50.511 01/24/2015 KARIN TANGSINGH S NET TRAINER Ot E66.9 01/24/2015 KARIN TANGSINGH S NET TRAINER Ot E78.5 01/24/2015 KITTY SANDRA S NET TRAINER Ot F17.210 01/24/2015 KITTY SANDRA S NET TRAINER Ot F31.9 01/24/2015 KITTY SANDRA S NET TRAINER Ot I10 01/24/2015 KARIN TANGSINGH S NET TRAINER Ot J44.9 01/24/2015 KARIN TANGSINGH S NET TRAINER Ot Z17.1 01/24/2015 KARIN TANGSINGH S NET TRAINER Ot Z68.35 01/24/2015 KARIN TANGSINGH S NET TRAINER Ot Z79.899 01/24/2015 GAMALIEL MURRAY, CEE K [...] CEE Pryor Ot Z79.899 01/24/2015 DARÍO BURROWS SPEECH LANGUAGE PATHOLOGIST Ot N63 01/24/2015 DARÍO BURROWS SPEECH LANGUAGE PATHOLOGIST Ot R92.8 01/24/2015 DARÍO BURROWS SPEECH LANGUAGE PATHOLOGIST Ot N64.4 01/24/2015 SHERRY ROGEL MD (DDU) Ot Z02.71 01/24/2015 DARÍO BURROWS SPEECH LANGUAGE PATHOLOGIST Ot N64.4 01/24/2015 DARÍO BURROWS SPEECH LANGUAGE PATHOLOGIST Ot N63 01/24/2015 DARÍO BURROWS SPEECH LANGUAGE PATHOLOGIST Ot R92.8 01/24/2015 GAMALIEL MURRAY, CEE Konstantin [...] SANDRA TANG Ot C50.511 01/24/2015 SANDRA TANG NET TRAINER Ot E66.9 01/24/2015 SANDRA TANG NET TRAINER Ot E78.5 01/24/2015 SANDRA TANG NET TRAINER Ot F17.210 01/24/2015 SANDRA TANG NET TRAINER Ot F31.9 01/24/2015 SANDRA TANG NET TRAINER Ot I10 01/24/2015 SANDRA TANG NET TRAINER Ot J44.9 01/24/2015 SANDRA TANG S NET TRAINER Ot Z17.1 01/24/2015 SANDRA TANG S NET TRAINER Ot Z68.35 01/24/2015 SANDRA TANG NET TRAINER Ot Z79.899 02/13/2015 GAMALIEL MURRAY, CEE Pryor Ot C50.511 02/13/2015 GAMALIEL MURRAY, CEE Pryor Ot Z51.81 02/13/2015 GAMALIEL MURRAY, CEE Pryor Ot Z79.899 02/13/2015 GAMALIEL MURRAY, CEE Pryor Ot C50.511 02/13/2015 GAMALIEL MURRAY, CEE Pryor Ot Z51.81 02/13/2015 GAMALIEL MURRAY, CEE Pryor Ot Z79.899 02/17/2015 PEBBLES MURRAY, SHERRY You (DDU) Ot Z02.71 02/17/2015 DARÍO BURROWS SPEECH LANGUAGE PATHOLOGIST Ot N64.4 02/17/2015 DARÍO BURROWS SPEECH LANGUAGE PATHOLOGIST Ot N63 02/17/2015 DARÍO BURROWS SPEECH LANGUAGE PATHOLOGIST Ot R92.8 02/17/2015 GAMALIEL MURRAY, CEE Pryor Ot C50.411 02/17/2015 GAMALIEL MURRAY, CEE Pryor Ot E66.9 02/17/2015 GAMALIEL MURRAY, CEE Pryor Ot E78.5 02/17/2015 GAMALIEL MURRAY, CEE Pryor Ot F17.210 02/17/2015 GAMALIEL MURRAY, CEE Pryor Ot F31.9 02/17/2015 GAMALIEL MURRAY, CEE Pryor Ot I10 02/17/2015 GAMALIEL MURRAY, CEE Pryor Ot J44.9 02/17/2015 GAMALIEL MURRAY, CEE Pryor Ot Z17.0 02/17/2015 GAMALIEL MURRAY, ECE Pryor Ot Z68.34 02/17/2015 GAMALIEL MURRAY, CEE Konstantin Ot Z79.899 02/17/2015 GAMALIEL MURRAY, CEE Pryor Ot C50.411 02/17/2015 GAMALIEL MURRAY, CEE Pryor Ot Z51.81 02/17/2015 GAMALIEL MURRAY, CEE Pryor Ot Z79.899 02/17/2015 GAMALIEL MURRAY, CEE K Ot C50.511 02/17/2015 GAMALIEL MURRAY, CEE Pryor Ot R92.8 02/17/2015 TANGSANDRA NET TRAINER Ot C50.511 02/17/2015 TANG, SANDRA S NET TRAINER Ot E66.9 02/17/2015 TANG, HILAH S NET TRAINER Ot E78.5 02/17/2015 TANG, HILAH S NET TRAINER Ot F17.210 02/17/2015 TANG, HILAH S NET TRAINER Ot F31.9 02/17/2015 TANG, HILAH S NET TRAINER Ot I10 02/17/2015 TANG, HILAH S NET TRAINER Ot J44.9 02/17/2015 TANG, HILAH S NET TRAINER Ot Z17.1 02/17/2015 KITTY SANDRA S NET TRAINER Ot Z68.35 02/17/2015 KITTYSANDRA S NET TRAINER Ot Z79.899 02/17/2015 GAMALIEL MURRAY, CEE Pryor [...] MURRAY, CEE K Ot I10 02/17/2015 GAMALIEL MRURAY, CEE Pryor Ot J44.9 02/17/2015 GAMALIEL MURRAY, CEE K Ot Z17.0 02/17/2015 GAMALIEL MURRAY, CEE K Ot Z68.34 02/17/2015 GAMALIEL MURRAY, CEE Pryor Ot Z79.899 02/21/2015 GAMALIEL MURRAY, CEE Pryor Ot C50.511 03/17/2015 PEBBLES MURRAY, SHERRY You (DDU) Ot Z02.71 03/17/2015 DARÍO BURROWS SPEECH LANGUAGE PATHOLOGIST Ot N64.4 03/17/2015 DARÍO BURROWS SPEECH LANGUAGE PATHOLOGIST Ot N63 03/17/2015 DARÍO BURROWS SPEECH LANGUAGE PATHOLOGIST Ot R92.8 03/17/2015 GAMALIEL MURRAY, CEE Pryor [...] CEE Pryor Ot R92.8 03/17/2015 SANDRA TANG NET TRAINER Ot C50.511 03/17/2015 SANDRA TANG S NET TRAINER Ot E66.9 03/17/2015 SANDRA TANG S NET TRAINER Ot E78.5 03/17/2015 KARIN TANGSINGH S NET TRAINER Ot F17.210 03/17/2015 SANDRA TANG S NET TRAINER Ot F31.9 03/17/2015 SANDRA TANG S NET TRAINER Ot I10 03/17/2015 SANDRA TAGN S NET TRAINER Ot J44.9 03/17/2015 SANDRA TANG S NET TRAINER Ot Z17.1 03/17/2015 SANDRA TANG S NET TRAINER Ot Z68.35 03/17/2015 SANDRA TANG S NET TRAINER Ot Z79.899 03/17/2015 GAMALIEL MURRAY, CEE Pryor [...] You (DDU) Ot Z02.71 03/20/2015 DARÍO BURROWS SPEECH LANGUAGE PATHOLOGIST Ot N64.4 03/20/2015 DARÍO BURROWS SPEECH LANGUAGE PATHOLOGIST Ot N63 03/20/2015 DARÍO BURROWS SPEECH LANGUAGE PATHOLOGIST Ot R92.8 03/20/2015 GAMALIEL MURRAY, CEE K [...] CEE K Ot R92.8 03/20/2015 SANDRA TANG NET TRAINER Ot C50.511 03/20/2015 SANDRA TANG NET TRAINER Ot E66.9 03/20/2015 SANDRA TANG NET TRAINER Ot E78.5 03/20/2015 SANDRA TANG NET TRAINER Ot F17.210 03/20/2015 SANDRA TANG NET TRAINER Ot F31.9 03/20/2015 SANDRA TANG NET TRAINER Ot I10 03/20/2015 SANDRA TANG NET TRAINER Ot J44.9 03/20/2015 SANDRA TANG NET TRAINER Ot Z17.1 03/20/2015 TANG, HILAH S NET TRAINER Ot Z68.35 03/20/2015 KITTY KARINAH S NET TRAINER Ot Z79.899 03/20/2015 GAMALIEL MURRAY, CEE K Ot C50.511 03/20/2015 GAMALIEL MURRAY, CEE K Ot Z51.81 03/20/2015 GAMALIEL MURRAY, CEE Pryor Ot Z79.899 03/20/2015 GAMALIEL MURRAY, CEE K Ot C50.511 03/20/2015 MARIA LUZ MURRAY, CAM M Ot C50.911 03/20/2015 MARIA LUZ MURRAY, CAM M Ot Z01.818 03/20/2015 GAMALIEL MURRAY, CEE K Ot C50.511 03/20/2015 KITTY HILAH S NET TRAINER Ot C50.511 03/20/2015 KARIN TANGAH S NET TRAINER Ot E66.9 03/20/2015 KITTY HILAH S NET TRAINER Ot E78.5 03/20/2015 KARIN TANGAH S NET TRAINER Ot F17.210 03/20/2015 KARIN TANGAH S NET TRAINER Ot F31.9 03/20/2015 SANDRA TANG S NET TRAINER Ot I10 03/20/2015 SANDRA TANG S NET TRAINER Ot J44.9 03/20/2015 SANDRA TANG S NET TRAINER Ot Z17.1 03/20/2015 KARIN TANGAH S NET TRAINER Ot Z68.35 03/20/2015 KITTY KARINAH S NET TRAINER Ot Z79.899 03/20/2015 GAMALIEL MURRAY, CEE K Ot C50.511 03/20/2015 GAMALIEL MURRAY, CEE Pryor Ot Z51.81 03/20/2015 GAMALIEL MURRAY, CEE K Ot Z79.899 03/20/2015 KITTY SANDRA S NET TRAINER Ot C50.511 03/20/2015 KARIN TANGAH S NET TRAINER Ot E66.9 03/20/2015 SANDRA TANG S NET TRAINER Ot E78.5 03/20/2015 KITTY HILAH S NET TRAINER Ot F17.210 03/20/2015 KITTY HILAH S NET TRAINER Ot F31.9 03/20/2015 KARIN TANGAH S NET TRAINER Ot I10 03/20/2015 SANDRA TANG S NET TRAINER Ot J44.9 03/20/2015 SANDRA TANG S NET TRAINER Ot Z17.1 03/20/2015 KITTYSANDRA NET TRAINER Ot Z68.35 03/20/2015 KITTY SANDRA Lazar NET TRAINER Ot Z79.899 03/20/2015 GAMALIEL MURRAY, CEE Konstantin [...] GAMALIEL MURRAY, CEE Konstantin Ot E66.9 03/20/2015 GMAALIEL MURRAY, CEE Konstantin Ot E78.5 03/20/2015 GAMALIEL MURRAY, CEE Konstantin Ot F17.210 03/20/2015 GAMALIEL MURRAY, CEE Pryor Ot F31.9 03/20/2015 GAMALIEL MURRAY, CEE Pryor Ot I10 03/20/2015 GAMALIEL MURRAY, CEE Konstantin Ot J44.9 03/20/2015 GAMALIEL MURRAY, CEE Pryor Ot Z17.0 03/20/2015 GAMALIEL MURRAY, CEE Konstantin Ot Z68.34 03/20/2015 GAMALIEL MURRAY, CEE Konstantin Ot Z79.899 03/20/2015 DARÍO BURROWS SPEECH LANGUAGE PATHOLOGIST Ot N63 03/20/2015 DARÍO BURROWS SPEECH LANGUAGE PATHOLOGIST Ot R92.8 03/20/2015 GAMALIEL MURRAY, CEE Pryor [...] Pryor Ot Z79.899 03/20/2015 BURROWS, DARÍO You SPEECH LANGUAGE PATHOLOGIST Ot N63 03/20/2015 BURROWS, DARÍO You SPEECH LANGUAGE PATHOLOGIST Ot R92.8 03/20/2015 BURROWS, DARÍO You SPEECH LANGUAGE PATHOLOGIST Ot N64.4 03/20/2015 BURROWS, DARÍO A SPEECH LANGUAGE PATHOLOGIST Ot 784.2 03/25/2015 GAMALIEL MURRAY, CEE Konstantin Ot C50.511 03/25/2015 GAMALIEL MURRAY, CEE Konstantin Ot C50.511 03/25/2015 GAMALIEL MURRAY, CEE Pryor Ot Z51.81 03/25/2015 GAMALIEL MURRAY, CEE Konstantin Ot Z79.899 03/25/2015 GAMALIEL MURRAY, CEE Konstantin Ot C50.511 03/25/2015 GAMALIEL MURRAY, CEE Konstantin Ot C50.411 03/25/2015 GAMALIEL MURRAY, CEE Pryor Ot Z51.81 03/25/2015 GAMALIEL MURRAY, CEE Pryor Ot Z79.899 03/25/2015 BURROWS, DARÍO You SPEECH LANGUAGE PATHOLOGIST Ot N63 03/25/2015 BURROWS, DARÍO A SPEECH LANGUAGE PATHOLOGIST Ot R92.8 03/25/2015 BURROWS, DARÍO A SPEECH LANGUAGE PATHOLOGIST Ot 784.2 03/31/2015 BURROWS, DARÍO A SPEECH LANGUAGE PATHOLOGIST Ot 784.2 03/31/2015 PEBBLES MURRAY, SHERRY You (DDU) Ot Z02.71 03/31/2015 BURROWS, DARÍO A SPEECH LANGUAGE PATHOLOGIST Ot N64.4 03/31/2015 BURROWS, DARÍO A SPEECH LANGUAGE PATHOLOGIST Ot N63 03/31/2015 BURROWS, DARÍO A SPEECH LANGUAGE PATHOLOGIST Ot R92.8 03/31/2015 GAMALIEL MURRAY, CEE Pryor [...] Pryor Ot R92.8 03/31/2015 KITTY SANDRA S NET TRAINER Ot C50.511 03/31/2015 KITTY HILAH S NET TRAINER Ot E66.9 03/31/2015 KITTY HILAH S NET TRAINER Ot E78.5 03/31/2015 KITTY KARINAH S NET TRAINER Ot F17.210 03/31/2015 KITTY KARINAH S NET TRAINER Ot F31.9 03/31/2015 KITTY SANDRA S NET TRAINER Ot I10 03/31/2015 KITTY SANDRA S NET TRAINER Ot J44.9 03/31/2015 KITTY SANDRA S NET TRAINER Ot Z17.1 03/31/2015 KITTY SANDRA S NET TRAINER Ot Z68.35 03/31/2015 KITTY KARINAH S NET TRAINER Ot Z79.899 03/31/2015 GAMALIEL MURRAY, CEE Pryor Ot C50.511 03/31/2015 GAMALIEL MURRAY, CEE Pryor Ot Z51.81 03/31/2015 GAMALIEL MURRAY, CEE Pryor Ot Z79.899 03/31/2015 GAMALIEL MURRAY, CEE Pryor Ot C50.511 03/31/2015 MARIA LUZ MURRAY, CAM Jara Ot C50.911 03/31/2015 MARIA LUZ MURRAY, CAM M Ot Z01.818 04/04/2015 DARÍO BURROWS SPEECH LANGUAGE PATHOLOGIST Ot 784.2 04/04/2015 DARÍO BURROWS SPEECH LANGUAGE PATHOLOGIST Ot N64.4 04/04/2015 DARÍO BURROWS SPEECH LANGUAGE PATHOLOGIST Ot N63 04/04/2015 DARÍO BURROWS SPEECH LANGUAGE PATHOLOGIST Ot R92.8 04/04/2015 GAMALIEL MURRAY, CEE Pryor Ot C50.511 04/04/2015 GAMALIEL MURRAY, CEE K Ot R92.8 04/04/2015 TANGSANDRA Lazar NET TRAINER Ot C50.511 04/04/2015 SANDRA TANG NET TRAINER Ot E66.9 04/04/2015 SANDRA TANG S NET TRAINER Ot E78.5 04/04/2015 SANDRA TANG S NET TRAINER Ot F17.210 04/04/2015 SANDRA TANG S NET TRAINER Ot F31.9 04/04/2015 SANDRA TANG S NET TRAINER Ot I10 04/04/2015 SANDRA TANG S NET TRAINER Ot J44.9 04/04/2015 SANDRA TANG S NET TRAINER Ot Z17.1 04/04/2015 TANGSANDRA Lazar S NET TRAINER Ot Z68.35 04/04/2015 TANGSANDRA Lazar NET TRAINER Ot Z79.899 04/04/2015 GAMALIEL MURRAY, CEE Konstantin Ot C50.511 04/04/2015 GAMALIEL MURRAY, CEE Konstantin Ot Z51.81 04/04/2015 GAMALIEL MURRAY, CEE K Ot Z79.899 04/04/2015 GAMALIEL MURRAY, CEE Pryor Ot C50.511 04/07/2015 DARÍO BURROWS SPEECH LANGUAGE PATHOLOGIST Ot 784.2 04/07/2015 PEBBLES MURRAY, SHERRY You (DDU) Ot Z02.71 04/07/2015 DARÍO BURROWS SPEECH LANGUAGE PATHOLOGIST Ot N64.4 04/07/2015 DARÍO BURROWS SPEECH LANGUAGE PATHOLOGIST Ot N63 04/07/2015 DARÍO BURROWS SPEECH LANGUAGE PATHOLOGIST Ot R92.8 04/07/2015 GAMALIEL MURRAY, CEE Konstantin [...] Pryor Ot R92.8 04/07/2015 KITTY SANDRA S NET TRAINER Ot C50.511 04/07/2015 KARIN TANGSINGH S NET TRAINER Ot E66.9 04/07/2015 KITTY SANDRA S NET TRAINER Ot E78.5 04/07/2015 KITTY SANDRA S NET TRAINER Ot F17.210 04/07/2015 KITTY SANDRA S NET TRAINER Ot F31.9 04/07/2015 KITTY SANDRA S NET TRAINER Ot I10 04/07/2015 KITTY SANDRA S NET TRAINER Ot J44.9 04/07/2015 KITTY SANDRA S NET TRAINER Ot Z17.1 04/07/2015 KITTY SANDRA S NET TRAINER Ot Z68.35 04/07/2015 KITTY SANDRA S NET TRAINER Ot Z79.899 04/07/2015 GAMALIEL MURRAY, CEE Pryor [...] GAMALIEL MURRAY, CEE Pryor Ot Z79.899 OTHER HALFWAY (CURRENT) DRUG THERAPY 04/21/2015 GAMALIEL MURRAY, CEE [...] CEE Pryor Ot Z79.899 04/22/2015 GAMALIEL MURRAY, ECE Pryor Ot C50.411 04/22/2015 GAMALIEL MURRAY, CEE [...] SANDRA TANG Ot C50.511 04/29/2015 SANDRA TANG NET TRAINER Ot Z79.899 04/30/2015 GAMALIEL MURRAY, CEE Pryor [...] CEE Pryor Ot Z51.81 06/17/2015 DARÍO BURROWS SPEECH LANGUAGE PATHOLOGIST Ot 784.2 SWELLING IN HEAD NECK 06/17/2015 SHERRY ROGEL MD (DDU) Ot Z02.71 ENCOUNTER FOR DISABILITY DETERMINATION 06/17/2015 DARÍO BURROWS SPEECH LANGUAGE PATHOLOGIST Ot N64.4 MASTODYNIA 06/17/2015 DARÍO BURROWS SPEECH LANGUAGE PATHOLOGIST Ot N63 UNSPECIFIED LUMP IN BREAST 06/17/2015 DARÍO BURROWS APRN Ot R92.8 OTH ABN AND INCONCLUSIVE FINDINGS ON DX 06/17/2015 GAMALIEL MURRAY, CEE Pryor Ot C50.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 06/17/2015 GAMALIEL MURRAY, CEE Pryor Ot Z51.81 ENCOUNTER FOR THERAPEUTIC DRUG LEVEL MON 06/17/2015 CEE ALSTON MD Ot Z79.899 OTHER HALFWAY (CURRENT) DRUG THERAPY 06/17/2015 CEE ALSTON MD Ot 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 06/17/2015 CEE ALSTON MD Ot R92.8 OTH ABN AND INCONCLUSIVE FINDINGS ON DX 06/17/2015 SANDRA TANG Cady NET TRAINER Ot 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 06/17/2015 SANDRA TANG S NET TRAINER Ot E66.9 OBESITY, UNSPECIFIED 06/17/2015 SANDRA TANG S NET TRAINER Ot E78.5 HYPERLIPIDEMIA, UNSPECIFIED 06/17/2015 KARIN TANGSINGH S NET TRAINER Ot F17.210 NICOTINE DEPENDENCE, CIGARETTES, UNCOMPL 06/17/2015 SANDRA TANG S NET TRAINER Ot F31.9 BIPOLAR DISORDER, UNSPECIFIED 06/17/2015 KARIN TANGSINHG S NET TRAINER Ot I10 ESSENTIAL (PRIMARY) HYPERTENSION 06/17/2015 SANDRA TANG S NET TRAINER Ot J44.9 CHRONIC OBSTRUCTIVE PULMONARY DISEASE, U 06/17/2015 SANDRA TANG S NET TRAINER Ot Z17.1 ESTROGEN RECEPTOR NEGATIVE STATUS [ER-] 06/17/2015 SANDRA TANG S NET TRAINER Ot Z68.35 BODY MASS INDEX (BMI) 35.0-35.9, ADULT 06/17/2015 SANDRA TANG S NET TRAINER Ot Z79.899 OTHER TEACHER ADVISOR (CURRENT) DRUG THERAPY 06/17/2015 CEE ALSTON MD Ot 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 06/17/2015 CEE ALSTON MD Ot Z51.81 ENCOUNTER FOR THERAPEUTIC DRUG LEVEL MON 06/17/2015 CEE ALSTON MD Ot Z79.899 OTHER HALFWAY (CURRENT) DRUG THERAPY 06/17/2015 CEE ALSTON MD [...] 06/17/2015 CEE ALSTON MD Ot Z79.899 OTHER TEACHER ADVISOR (CURRENT) DRUG THERAPY 06/17/2015 SANDRA TANG Ot 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 06/17/2015 SANDRA TANG Ot Z79.899 OTHER TEACHER ADVISOR (CURRENT) DRUG THERAPY 06/17/2015 CEE ALSTON MD [...] 06/17/2015 CEE ALSTON MD Ot Z79.899 OTHER HALFWAY (CURRENT) DRUG THERAPY 06/17/2015 CEE ALSTON MD Ot 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 06/17/2015 CEE ALSTON MD Ot Z51.81 ENCOUNTER FOR THERAPEUTIC DRUG LEVEL MON 07/30/2015 CEE ASLTON MD, Ot C50.411 MALIG NEOPLM OF UPPER-OUTER [...] 07/30/2015 CEE ALSTON MD, Ot Z79.899 OTHER TEACHER ADVISOR (CURRENT) DRUG THERAPY 07/31/2015 CEE ALSTON MD, [...] 07/31/2015 CEE ALSTON MD, Ot Z79.899 OTHER TEACHER ADVISOR (CURRENT) DRUG THERAPY 08/05/2015 CEE ALSTON MD, [...] 08/05/2015 CEE ALSTON MD Ot Z79.899 OTHER HALFWAY (CURRENT) DRUG THERAPY 01/01/2016 CEE ALSTON MD [...] 01/01/2016 CEE ALSTON MD Ot Z79.899 OTHER TEACHER ADVISOR (CURRENT) DRUG THERAPY 02/16/2016 DARÍO BURROWS SPEECH LANGUAGE PATHOLOGIST Ot 784.2 SWELLING IN HEAD NECK 02/16/2016 SHERRY ROGEL MD (DDU) Ot Z02.71 ENCOUNTER FOR DISABILITY DETERMINATION 02/16/2016 DARÍO BURROWS SPEECH LANGUAGE PATHOLOGIST Ot N64.4 MASTODYNIA 02/16/2016 DARÍO BURROWS SPEECH LANGUAGE PATHOLOGIST Ot N63 UNSPECIFIED LUMP IN BREAST 02/16/2016 DARÍO BURROWS APRN Ot R92.8 OTH ABN AND INCONCLUSIVE FINDINGS ON DX 02/16/2016 CEE ALSTON MD Ot C50.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 02/16/2016 CEE ALSTON MD Ot Z51.81 ENCOUNTER FOR THERAPEUTIC DRUG LEVEL MON 02/16/2016 CEE ALSTON MD Ot Z79.899 OTHER TEACHER ADVISOR (CURRENT) DRUG THERAPY 02/16/2016 CEE ALSTON MD Ot 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 02/16/2016 CEE ALSTON MD, Ot R92.8 OTH ABN AND INCONCLUSIVE FINDINGS ON DX 02/16/2016 SANDRA TANG NET TRAINER Ot 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 02/16/2016 SANDRA TANG NET TRAINER Ot E66.9 OBESITY, UNSPECIFIED 02/16/2016 SANDRA TANG S NET TRAINER Ot E78.5 HYPERLIPIDEMIA, UNSPECIFIED 02/16/2016 SANDRA TANG NET TRAINER Ot F17.210 NICOTINE DEPENDENCE, CIGARETTES, UNCOMPL 02/16/2016 SANDRA TANG NET TRAINER Ot F31.9 BIPOLAR DISORDER, UNSPECIFIED 02/16/2016 SANDRA TANG S NET TRAINER Ot I10 ESSENTIAL (PRIMARY) HYPERTENSION 02/16/2016 SANDRA TANG NET TRAINER Ot J44.9 CHRONIC OBSTRUCTIVE PULMONARY DISEASE, U 02/16/2016 SANDRA TANG S NET TRAINER Ot Z17.1 ESTROGEN RECEPTOR NEGATIVE STATUS [ER-] 02/16/2016 SANDRA TANG NET TRAINER Ot Z68.35 BODY MASS INDEX (BMI) 35.0-35.9, ADULT 02/16/2016 SANDRA TANG NET TRAINER Ot Z79.899 OTHER HALFWAY (CURRENT) DRUG THERAPY 02/16/2016 CEE ALSTON MD Ot 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 02/16/2016 CEE ALSTON MD Ot Z51.81 ENCOUNTER FOR THERAPEUTIC DRUG LEVEL MON 02/16/2016 CEE ALSTON MD Ot Z79.899 OTHER TEACHER ADVISOR (CURRENT) DRUG THERAPY 02/16/2016 CEE ALSTON MD [...] GAMALIEL MURRAY CEE Konstantin Ot Z79.899 OTHER HALFWAY (CURRENT) DRUG THERAPY 02/16/2016 SANDRA TANG Ot 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 02/16/2016 SANDRA TANG Ot Z79.899 OTHER TEACHER ADVISOR (CURRENT) DRUG THERAPY 02/16/2016 GAMALIEL MURRAY CEE [...] Ot F17.210 NICOTINE DEPENDENCE, CIGARETTES, UNCOMPL 02/16/2016 UELOGIO BRAGA MD Ot F31.9 BIPOLAR DISORDER, UNSPECIFIED 02/16/2016 EULOGIO BRAGA MD Ot I10 ESSENTIAL (PRIMARY) HYPERTENSION 02/16/2016 EULOGIO BRAGA MD, Ot J44.9 CHRONIC OBSTRUCTIVE PULMONARY DISEASE, U 02/16/2016 EULOGIO BRAGA MD Ot Z17.0 ESTROGEN RECEPTOR POSITIVE STATUS [ER+] 02/16/2016 EULOGIO BRAGA MD Ot Z68.34 BODY MASS INDEX (BMI) 34.0-34.9, ADULT 02/16/2016 EULOGIO BRAGA MD, Ot Z79.899 OTHER TEACHER ADVISOR (CURRENT) DRUG THERAPY 02/16/2016 DARÍO BURROWS APRN Ot 784.2 SWELLING IN HEAD NECK 02/16/2016 SHERRY ROGEL MD ([facility]) Ot Z02.71 ENCOUNTER FOR DISABILITY [...] 02/16/2016 CEE ALSTON MD Ot Z79.899 OTHER TEACHER ADVISOR (CURRENT) DRUG THERAPY 02/16/2016 CEE ALSTON MD Ot 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 02/16/2016 CEE ALSTON MD Ot R92.8 OTH ABN AND INCONCLUSIVE FINDINGS ON DX 02/16/2016 SANDRA TANG NET TRAINER Ot 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 02/16/2016 SANDRA TANG S NET TRAINER Ot E66.9 OBESITY, UNSPECIFIED 02/16/2016 SANDRA TANG S NET TRAINER Ot E78.5 HYPERLIPIDEMIA, UNSPECIFIED 02/16/2016 SANDRA TANG S NET TRAINER Ot F17.210 NICOTINE DEPENDENCE, CIGARETTES, UNCOMPL 02/16/2016 SANDRA TANG S NET TRAINER Ot F31.9 BIPOLAR DISORDER, UNSPECIFIED 02/16/2016 SANDRA TANG S NET TRAINER Ot I10 ESSENTIAL (PRIMARY) HYPERTENSION 02/16/2016 SANDRA TANG NET TRAINER Ot J44.9 CHRONIC OBSTRUCTIVE PULMONARY DISEASE, U 02/16/2016 SANDRA TANG S NET TRAINER Ot Z17.1 ESTROGEN RECEPTOR NEGATIVE STATUS [ER-] 02/16/2016 SANDRA TANG S NET TRAINER Ot Z68.35 BODY MASS INDEX (BMI) 35.0-35.9, ADULT 02/16/2016 SANDRA TANG S NET TRAINER Ot Z79.899 OTHER TEACHER ADVISOR (CURRENT) DRUG THERAPY 02/16/2016 CEE ALSTON MD Ot 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 02/16/2016 CEE ALSTON MD Ot Z51.81 ENCOUNTER FOR THERAPEUTIC DRUG LEVEL MON 02/16/2016 CEE ALSTON MD Ot Z79.899 OTHER TEACHER ADVISOR (CURRENT) DRUG THERAPY 02/16/2016 CEE ALSTON MD [...] 02/16/2016 CEE ALSTON MD Ot Z79.899 OTHER TEACHER ADVISOR (CURRENT) DRUG THERAPY 02/16/2016 SANDRA TANG Ot 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 02/16/2016 SANDRA TANG Ot Z79.899 OTHER HALFWAY (CURRENT) DRUG THERAPY 02/16/2016 CEE ALSTON MD [...] 02/16/2016 EULOGIO BRAGA MD Ot Z79.899 OTHER TEACHER ADVISOR (CURRENT) DRUG THERAPY 02/16/2016 EDIL QURESHI Ot F17.210 NICOTINE DEPENDENCE, CIGARETTES, UNCOMPL 02/16/2016 EDIL QURESHI Ot F41.9 ANXIETY DISORDER, UNSPECIFIED 02/16/2016 EDIL QURESHI Ot I10 ESSENTIAL (PRIMARY) HYPERTENSION 02/16/2016 EDIL QURESHI Ot Z95.9 PRESENCE OF CARDIAC AND VASCULAR IMPLANT 02/16/2016 DARÍO BURROWS APRN Ot 784.2 SWELLING IN HEAD NECK 02/16/2016 SHERRY ROGEL MD ([facility]) Ot Z02.71 ENCOUNTER FOR DISABILITY DETERMINATION 02/16/2016 DARÍO BURROWS SPEECH LANGUAGE PATHOLOGIST Ot N64.4 MASTODYNIA 02/16/2016 DARÍO BURROWS SPEECH LANGUAGE PATHOLOGIST Ot N63 UNSPECIFIED LUMP IN BREAST 02/16/2016 DARÍO BURROWS APRN Ot R92.8 OTH ABN AND INCONCLUSIVE FINDINGS ON DX 02/16/2016 CEE ALSTON MD Ot C50.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 02/16/2016 CEE ALSTON MD Ot Z51.81 ENCOUNTER FOR THERAPEUTIC DRUG LEVEL MON 02/16/2016 CEE ALSTON MD Ot Z79.899 OTHER TEACHER ADVISOR (CURRENT) DRUG THERAPY 02/16/2016 CEE ALSTON MD [...] ADULT 02/16/2016 SANDRA TANG Ot Z79.899 OTHER HALFWAY (CURRENT) DRUG THERAPY 02/16/2016 CEE ALSTON MD Ot 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 02/16/2016 CEE ALSTON MD Ot Z51.81 ENCOUNTER FOR THERAPEUTIC DRUG LEVEL MON 02/16/2016 CEE ALSTON MD Ot Z79.899 OTHER TEACHER ADVISOR (CURRENT) DRUG THERAPY 02/16/2016 CEE ALSTON MD [...] 02/16/2016 CEE ALSTON MD Ot Z79.899 OTHER TEACHER ADVISOR (CURRENT) DRUG THERAPY 02/16/2016 SANDRA TANG Ot 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 02/16/2016 SANDRA TANG Ot Z79.899 OTHER HALFWAY (CURRENT) DRUG THERAPY 02/16/2016 CEE ALSTON MD [...] 02/16/2016 EULOGIO BRAGA MD, Ot Z79.899 OTHER TEACHER ADVISOR (CURRENT) DRUG THERAPY 02/17/2016 EDIL QURESHI Ot [...] 03/01/2016 CEE ALSTON MD Ot Z79.899 OTHER TEACHER ADVISOR (CURRENT) DRUG THERAPY 03/01/2016 CEE ALSTON MD Ot 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 03/01/2016 CEE ALSTON MD Ot R92.8 OTH ABN AND INCONCLUSIVE FINDINGS ON DX 03/01/2016 SANDRA TANG Ot 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 03/01/2016 SANDRA TANG Ot E66.9 OBESITY, UNSPECIFIED 03/01/2016 SANDRA TANG NET TRAINER Ot E78.5 HYPERLIPIDEMIA, UNSPECIFIED 03/01/2016 SANDRA TANG NET TRAINER Ot F17.210 NICOTINE DEPENDENCE, CIGARETTES, UNCOMPL 03/01/2016 SANDRA TANG NET TRAINER Ot F31.9 BIPOLAR DISORDER, UNSPECIFIED 03/01/2016 SANDRA TANG NET TRAINER Ot I10 ESSENTIAL (PRIMARY) HYPERTENSION 03/01/2016 SANDRA TANGP Ot J44.9 CHRONIC OBSTRUCTIVE PULMONARY DISEASE, U 03/01/2016 SANDRA TANG NET TRAINER Ot Z17.1 ESTROGEN RECEPTOR NEGATIVE STATUS [ER-] 03/01/2016 SANDRA TANG NET TRAINER Ot Z68.35 BODY MASS INDEX (BMI) 35.0-35.9, ADULT 03/01/2016 SANDRA TANGP Ot Z79.899 OTHER HALFWAY (CURRENT) DRUG THERAPY 03/01/2016 CEE ALSTON MD Ot 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 03/01/2016 CEE ALSTON MD Ot Z51.81 ENCOUNTER FOR THERAPEUTIC DRUG LEVEL MON 03/01/2016 CEE ALSTON MD Ot Z79.899 OTHER TEACHER ADVISOR (CURRENT) DRUG THERAPY 03/01/2016 CEE ALSTON MD [...] 03/01/2016 CEE ALSTON MD Ot Z79.899 OTHER TEACHER ADVISOR (CURRENT) DRUG THERAPY 03/01/2016 SANDRA TANG Ot 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 03/01/2016 SANDRA TANG Ot Z79.899 OTHER TEACHER ADVISOR (CURRENT) DRUG THERAPY 03/01/2016 CEE ALSTON MD Ot 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 03/01/2016 CEE ALSTON MD Ot Z51.81 ENCOUNTER FOR THERAPEUTIC DRUG LEVEL MON 03/01/2016 DARÍO BURROWS SPEECH LANGUAGE PATHOLOGIST Ot 784.2 SWELLING IN HEAD NECK 03/01/2016 SHERRY ROGEL MD ([facility]) Ot Z02.71 ENCOUNTER FOR DISABILITY DETERMINATION 03/01/2016 DARÍO BURROWS SPEECH LANGUAGE PATHOLOGIST Ot N64.4 MASTODYNIA 03/01/2016 DARÍO BURROWS SPEECH LANGUAGE PATHOLOGIST Ot N63 UNSPECIFIED LUMP IN BREAST 03/01/2016 DARÍO BURROWS SPEECH LANGUAGE PATHOLOGIST Ot R92.8 OTH ABN AND INCONCLUSIVE FINDINGS ON DX 03/01/2016 CEE ALSTON MD Ot C50.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 03/01/2016 CEE ALSTON MD Ot Z51.81 ENCOUNTER FOR THERAPEUTIC DRUG LEVEL MON 03/01/2016 CEE ALSTON MD Ot Z79.899 OTHER TEACHER ADVISOR (CURRENT) DRUG THERAPY 03/01/2016 CEE ALSTON MD [...] ADULT 03/01/2016 SANDRA TANG Ot Z79.899 OTHER HALFWAY (CURRENT) DRUG THERAPY 03/01/2016 CEE ALSTON MD Ot 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 03/01/2016 CEE ALSTON MD Ot Z51.81 ENCOUNTER FOR THERAPEUTIC DRUG LEVEL MON 03/01/2016 CEE ALSTON MD Ot Z79.899 OTHER HALFWAY (CURRENT) DRUG THERAPY 03/01/2016 CEE ALSTON MD [...] 03/01/2016 CEE ALSTON MD Ot Z79.899 OTHER TEACHER ADVISOR (CURRENT) DRUG THERAPY 03/01/2016 SANDRA TANG Ot 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210 NICOTINE DEPENDENCE, CIGARETTES, UNCOMPL 03/04/2016 KAYLA MELENDEZ SPEECH LANGUAGE PATHOLOGIST Ot I10 ESSENTIAL (PRIMARY) HYPERTENSION 03/04/2016 KAYLA MELENDEZ APRN Ot J44.9 CHRONIC OBSTRUCTIVE PULMONARY DISEASE, U 03/04/2016 KAYLA MELENDEZ APRN Ot N61.0 MASTITIS WITHOUT ABSCESS 03/04/2016 KAYLA MELENDEZ APRN Ot Z79.899 OTHER TEACHER ADVISOR (CURRENT) DRUG THERAPY 03/04/2016 KAYLA MELENDEZ APRN [...] 03/05/2016 KAYLA MELENDEZ APRN Ot Z79.899 OTHER TEACHER ADVISOR (CURRENT) DRUG THERAPY 03/05/2016 KAYLA MELENDEZ APRN Ot Z90.11 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 03/07/2016 ADE FOWLER Ot Z51.81 ENCOUNTER FOR THERAPEUTIC DRUG LEVEL MON 03/07/2016 ADE FOWLER Ot Z79.899 OTHER HALFWAY (CURRENT) DRUG THERAPY 03/18/2016 ADE FOWLER Ot Z51.81 ENCOUNTER FOR THERAPEUTIC DRUG LEVEL MON 03/18/2016 ADE FOWLER Ot Z79.899 OTHER HALFWAY (CURRENT) DRUG THERAPY 04/19/2016 DARÍO BURROWS SPEECH LANGUAGE PATHOLOGIST Ot 784.2 SWELLING IN HEAD NECK 04/19/2016 SHERRY ROGEL MD ([facility]) Ot Z02.71 ENCOUNTER FOR DISABILITY DETERMINATION 04/19/2016 BURROWSDARÍO Avelino SPEECH LANGUAGE PATHOLOGIST Ot N64.4 MASTODYNIA 04/19/2016 DARÍO BURROWS SPEECH LANGUAGE PATHOLOGIST Ot N63 UNSPECIFIED LUMP IN BREAST 04/19/2016 ROB BURROWSFER Avelino SPEECH LANGUAGE PATHOLOGIST Ot R92.8 OTH ABN AND INCONCLUSIVE FINDINGS ON DX 04/19/2016 CEE ALSTON MD Ot C50.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 04/19/2016 CEE ALSTON MD Ot Z51.81 ENCOUNTER FOR THERAPEUTIC DRUG LEVEL MON 04/19/2016 CEE ALSTON MD Ot Z79.899 OTHER HALFWAY (CURRENT) DRUG THERAPY 04/19/2016 CEE ALSTON MD, Ot 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 04/19/2016 CEE ALSTON MD Ot R92.8 OTH ABN AND INCONCLUSIVE FINDINGS ON DX 04/19/2016 SANDRA TANGP Ot 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 04/19/2016 SANDRA TANG NET TRAINER Ot E66.9 OBESITY, UNSPECIFIED 04/19/2016 SANDRA TANGP Ot E78.5 HYPERLIPIDEMIA, UNSPECIFIED 04/19/2016 SANDRA TANG NET TRAINER Ot F17.210 NICOTINE DEPENDENCE, CIGARETTES, UNCOMPL 04/19/2016 SANDRA TANG NET TRAINER Ot F31.9 BIPOLAR DISORDER, UNSPECIFIED 04/19/2016 SANDRA TANGP Ot I10 ESSENTIAL (PRIMARY) HYPERTENSION 04/19/2016 SANDRA TANGP Ot J44.9 CHRONIC OBSTRUCTIVE PULMONARY DISEASE, U 04/19/2016 SANDRA TANGP Ot Z17.1 ESTROGEN RECEPTOR NEGATIVE STATUS [ER-] 04/19/2016 SANDRA TANGP Ot Z68.35 BODY MASS INDEX (BMI) 35.0-35.9, ADULT 04/19/2016 SANDRA TANG NET TRAINER Ot Z79.899 OTHER HALFWAY (CURRENT) DRUG THERAPY 04/19/2016 CEE ALSTON MD Ot 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 04/19/2016 CEE ALSTON MD Ot Z51.81 ENCOUNTER FOR THERAPEUTIC DRUG LEVEL MON 04/19/2016 CEE ALSTON MD Ot Z79.899 OTHER TEACHER ADVISOR (CURRENT) DRUG THERAPY 04/19/2016 CEE ALSTON MD [...] 04/19/2016 CEE ALSTON MD Ot Z79.899 OTHER HALFWAY (CURRENT) DRUG THERAPY 04/19/2016 SANDRA TANG Ot 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 04/19/2016 SANDRA TANG Ot Z79.899 OTHER TEACHER ADVISOR (CURRENT) DRUG THERAPY 04/19/2016 CEE ALSTON MD [...] 05/06/2016 OMI MURRAY, EULOGIO Ot Z79.899 OTHER HALFWAY (CURRENT) DRUG THERAPY 05/06/2016 STORMY DARÍO A SPEECH LANGUAGE PATHOLOGIST Ot 784.2 SWELLING IN HEAD NECK 05/06/2016 PEBBLES MURRAY, SHERRY You ([facility]) Ot Z02.71 ENCOUNTER FOR DISABILITY DETERMINATION 05/06/2016 DARÍO BURROWS SPEECH LANGUAGE PATHOLOGIST Ot N64.4 MASTODYNIA 05/06/2016 DARÍO BURROWS SPEECH LANGUAGE PATHOLOGIST Ot N63 UNSPECIFIED LUMP IN BREAST 05/06/2016 DARÍO BURROWS SPEECH LANGUAGE PATHOLOGIST Ot R92.8 OTH ABN AND INCONCLUSIVE FINDINGS ON DX 05/06/2016 CEE ALSTON MD Ot C50.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 05/06/2016 CEE ALSTON MD Ot Z51.81 ENCOUNTER FOR THERAPEUTIC DRUG LEVEL MON 05/06/2016 CEE ALSTON MD Ot Z79.899 OTHER TEACHER ADVISOR (CURRENT) DRUG THERAPY 05/06/2016 CEE ALSTON MD Ot 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 05/06/2016 CEE ALSTON MD Ot R92.8 OTH ABN AND INCONCLUSIVE FINDINGS ON DX 05/06/2016 SANDRA TANG Ot 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 05/06/2016 SANDRA TANG NET TRAINER Ot E66.9 OBESITY, UNSPECIFIED 05/06/2016 SANDRA TANG NET TRAINER Ot E78.5 HYPERLIPIDEMIA, UNSPECIFIED 05/06/2016 SANDRA TANG NET TRAINER Ot F17.210 NICOTINE DEPENDENCE, CIGARETTES, UNCOMPL 05/06/2016 SANDRA TANG NET TRAINER Ot F31.9 BIPOLAR DISORDER, UNSPECIFIED 05/06/2016 SANDRA TANG NET TRAINER Ot I10 ESSENTIAL (PRIMARY) HYPERTENSION 05/06/2016 SANDRA TANGP Ot J44.9 CHRONIC OBSTRUCTIVE PULMONARY DISEASE, U 05/06/2016 SANDRA TANG NET TRAINER Ot Z17.1 ESTROGEN RECEPTOR NEGATIVE STATUS [ER-] 05/06/2016 SANDRA TANG NET TRAINER Ot Z68.35 BODY MASS INDEX (BMI) 35.0-35.9, ADULT 05/06/2016 SANDRA TANG NET TRAINER Ot Z79.899 OTHER TEACHER ADVISOR (CURRENT) DRUG THERAPY 05/06/2016 CEE ALSTON MD Ot 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 05/06/2016 CEE ALSTON MD Ot Z51.81 ENCOUNTER FOR THERAPEUTIC DRUG LEVEL MON 05/06/2016 CEE ALSTON MD Ot Z79.899 OTHER TEACHER ADVISOR (CURRENT) DRUG THERAPY 05/06/2016 CEE ALSTON MD [...] 05/06/2016 CEE ALSTON MD Ot Z79.899 OTHER TEACHER ADVISOR (CURRENT) DRUG THERAPY 05/06/2016 SANDRA TANG NET TRAINER Ot 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] 05/26/2016 KARLIE ZHU MD Ot Z79.899 OTHER HALFWAY (CURRENT) DRUG THERAPY 05/26/2016 KARLIE ZHU MD [...] 05/27/2016 KARLIE ZHU MD Ot Z79.899 OTHER HALFWAY (CURRENT) DRUG THERAPY 05/27/2016 KARLIE ZHU MD [...] 06/28/2016 YANG ELKINS MD Ot Z79.899 OTHER HALFWAY (CURRENT) DRUG THERAPY 06/28/2016 YANG ELKINS MD [...] 07/19/2016 EULOGIO BRAGA MD, Ot Z79.899 OTHER TEACHER ADVISOR (CURRENT) DRUG THERAPY 07/21/2016 XUN MD, PIRES-DENEEN [...] 07/21/2016 EULOGIO BRAGA MD Ot Z79.899 OTHER TEACHER ADVISOR (CURRENT) DRUG THERAPY 08/23/2016 EULOGIO BRAGA MD [...] 08/23/2016 EULOGIO BRAGA MD Ot Z79.899 OTHER TEACHER ADVISOR (CURRENT) DRUG THERAPY 10/18/2016 EULOGIO BRAGA MD [...] BODY MASS INDEX (BMI) 34.0-34.9, ADULT 10/18/2016 EULOGOI BRAGA MD Ot Z79.899 OTHER HALFWAY (CURRENT) DRUG THERAPY 12/29/2016 ADE FOWLER Ot Z51.81 ENCOUNTER FOR THERAPEUTIC DRUG LEVEL [facility] 12/29/2016 ADE FOWLER Ot Z79.899 OTHER HALFWAY (CURRENT) DRUG THERAPY 12/29/2016 EULOGIO BRAGA MD [...] 12/29/2016 EULOGIO BRAGA MD Ot Z79.899 OTHER HALFWAY (CURRENT) DRUG THERAPY 12/29/2016 JEFFREY BALL EMILY [...] 01/03/2017 EULOGIO BRAGA MD Ot Z79.899 OTHER TEACHER ADVISOR (CURRENT) DRUG THERAPY 01/07/2017 KAYLA MELENDEZ APRN Ot E78.00 PURE HYPERCHOLESTEROLEMIA, UNSPECIFIED 01/07/2017 KAYLA MELENDEZ APRN Ot F31.9 BIPOLAR DISORDER, UNSPECIFIED 01/07/2017 KAYLA MELENDEZ APRN Ot F41.9 ANXIETY DISORDER, UNSPECIFIED 01/07/2017 KAYLA MELENDEZ APRN Ot I10 ESSENTIAL (PRIMARY) HYPERTENSION 01/07/2017 KAYLA MELENDEZ APRN Ot J45.909 UNSPECIFIED ASTHMA, UNCOMPLICATED 01/07/2017 KAYLA MELENDEZ APRN Ot K21.9 GASTRO-ESOPHAGEAL REFLUX DISEASE WITHOUT 01/07/2017 KAYLA MLEENDEZ APRN Ot M06.9 RHEUMATOID ARTHRITIS, UNSPECIFIED 01/07/2017 [...] 01/21/2017 EULOGIO BRAGA MD, Ot Z79.899 OTHER HALFWAY (CURRENT) DRUG THERAPY 03/27/2017 KARLIE ZHU MD [...] HEADACHE 03/27/2017 KARLIE ZHU MD, Ot Z79.52 HALFWAY (CURRENT) USE OF SYSTEMIC STER 03/27/2017 KARLIE [...] 03/29/2017 EULOGIO BRAGA MD, Ot Z79.899 OTHER HALFWAY (CURRENT) DRUG THERAPY 03/29/2017 MARKO MD, KARLIE [...] HEADACHE 03/29/2017 KARLIE ZHU MD, Ot Z79.52 HALFWAY (CURRENT) USE OF SYSTEMIC STER 03/29/2017 KARLIE [...] 03/30/2017 EULOGIO BRAGA MD, Ot Z79.899 OTHER HALFWAY (CURRENT) DRUG THERAPY 05/20/2017 ADE FOWLER Ot Z51.81 ENCOUNTER FOR THERAPEUTIC DRUG LEVEL MON 05/20/2017 ADE FOWLER Ot Z79.899 OTHER TEACHER ADVISOR (CURRENT) DRUG THERAPY 05/20/2017 EULOGIO BRAGA MD, Ot C50.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 05/20/2017 EUOLGIO BRAGA MD Ot E66.9 OBESITY, UNSPECIFIED 05/20/2017 [...] 05/20/2017 EULOGIO BRAGA MD, Ot Z79.899 OTHER HALFWAY (CURRENT) DRUG THERAPY 05/20/2017 ADE FOWLER Ot Z51.81 ENCOUNTER FOR THERAPEUTIC DRUG LEVEL MON 05/20/2017 ADE FOWLER Ot Z79.899 OTHER TEACHER ADVISOR (CURRENT) DRUG THERAPY 05/20/2017 EULOGIO BRAGA MD Ot C50.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 05/20/2017 EULOGIO BRAGA MD Ot E66.9 OBESITY, UNSPECIFIED 05/20/2017 MOI MURRAY, EULOGIO Ot E78.5 HYPERLIPIDEMIA, UNSPECIFIED 05/20/2017 EULOGIO BRAGA MD, Ot F17.210 NICOTINE DEPENDENCE, CIGARETTES, UNCOMPL 05/20/2017 EULOGIO BRAGA MD, Ot F31.9 BIPOLAR DISORDER, UNSPECIFIED 05/20/2017 EULOGIO BRAGA MD Ot I10 ESSENTIAL (PRIMARY) HYPERTENSION 05/20/2017 EULOGIO BRAGA MD, Ot J44.9 CHRONIC OBSTRUCTIVE PULMONARY DISEASE, U 05/20/2017 EULOGIO BRAGA MD, Ot Z17.0 ESTROGEN RECEPTOR POSITIVE STATUS [ER+] 05/20/2017 EULOGIO BRAGA MD, Ot Z51.0 ENCOUNTER FOR ANTINEOPLASTIC RADIATION T 05/20/2017 EULOGIO BRAGA MD, Ot Z68.34 BODY MASS INDEX (BMI) 34.0-34.9, ADULT 05/20/2017 EULOGIO BRAGA MD, Ot Z79.899 OTHER HALFWAY (CURRENT) DRUG THERAPY 05/20/2017 JEFFREY DO EMILY K Ot C50.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 05/20/2017 JEFFREY DO EMILY K Ot C50.912 MALIGNANT NEOPLASM OF UNSPECIFIED SITE O 05/20/2017 JEFFREY DO EMILY K Ot C79.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 05/20/2017 JEFFREY DO EMILY K Ot E78.00 PURE HYPERCHOLESTEROLEMIA, UNSPECIFIED 05/20/2017 JEFFREY DO EMILY K Ot F17.210 NICOTINE DEPENDENCE, CIGARETTES, UNCOMPL 05/20/2017 JEFFREY DO EMILY K Ot F31.9 BIPOLAR DISORDER, UNSPECIFIED 05/20/2017 JEFFREY DO EMILY K Ot F41.9 ANXIETY DISORDER, UNSPECIFIED 05/20/2017 JEFFREY DO EMILY K Ot I10 ESSENTIAL (PRIMARY) HYPERTENSION 05/20/2017 JEFFREY DO EMILY K Ot J45.909 UNSPECIFIED ASTHMA, UNCOMPLICATED 05/20/2017 JEFFREY DO EMILY K Ot K21.9 GASTRO-ESOPHAGEAL REFLUX DISEASE WITHOUT 05/20/2017 JEFFREY DO EMILY K Ot M06.9 RHEUMATOID ARTHRITIS, UNSPECIFIED 05/20/2017 JEFFREY DO EMILY K Ot R11.2 NAUSEA WITH VOMITING, UNSPECIFIED 05/20/2017 JEFFREY BALL EMILY K Ot R51 HEADACHE 05/20/2017 EMILY MURPHY DO Ot Z85.3 PERSONAL HISTORY OF MALIGNANT NEOPLASM O 05/20/2017 JEFFREY BALL EMILY Konstantin Ot Z85.828 PERSONAL HISTORY OF OTHER MALIGNANT NEOP 05/20/2017 JEFFREY BALL EMILY Konstantin Ot Z87.59 PERSONAL HISTORY OF COMP OF PREG, CHLDBR 05/20/2017 JEFFREY BALL EMILY Konstantin Ot Z90.13 ACQUIRED ABSENCE OF BILATERAL BREASTS AN 05/20/2017 JEFFREY BALL EMILY Pryor Ot Z92.21 PERSONAL HISTORY OF ANTINEOPLASTIC CHEMO 05/20/2017 ADE FOWLER Ot Z51.81 ENCOUNTER FOR THERAPEUTIC DRUG LEVEL MON 05/20/2017 ADE FOWLER Ot Z79.899 OTHER TEACHER ADVISOR (CURRENT) DRUG THERAPY 05/20/2017 EULOGIO BRAGA MD, Ot C50.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 05/20/2017 EULOGIO BRAGA MD Ot E66.9 OBESITY, UNSPECIFIED 05/20/2017 EULOGIO BRAGA MD, Ot E78.5 HYPERLIPIDEMIA, UNSPECIFIED 05/20/2017 EULOGIO BRAGA MD Ot F17.210 NICOTINE DEPENDENCE, CIGARETTES, UNCOMPL 05/20/2017 EULOGIO BRAGA MD, Ot F31.9 BIPOLAR DISORDER, UNSPECIFIED 05/20/2017 EULOGIO BRAGA MD Ot I10 ESSENTIAL (PRIMARY) HYPERTENSION 05/20/2017 EULOGIO BRAGA MD, Ot J44.9 CHRONIC OBSTRUCTIVE PULMONARY DISEASE, U 05/20/2017 EULOGIO BRAGA MD, Ot Z17.0 ESTROGEN RECEPTOR POSITIVE STATUS [ER+] 05/20/2017 ELUOGIO BRAGA MD, Ot Z51.0 ENCOUNTER FOR ANTINEOPLASTIC RADIATION T 05/20/2017 EULOGIO BRAGA MD, Ot Z68.34 BODY MASS INDEX (BMI) 34.0-34.9, ADULT 05/20/2017 EULOGIO BRAGA MD, Ot Z79.899 OTHER HALFWAY (CURRENT) DRUG THERAPY 05/21/2017 NOELLE MAK MD Ot C50.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 05/21/2017 NOELLE MAK MD Ot C79.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 05/21/2017 NOELLE MAK MD Ot E78.00 PURE HYPERCHOLESTEROLEMIA, UNSPECIFIED 05/21/2017 AUBREE MURRAY, NOELLE Lazar Ot F31.9 BIPOLAR DISORDER, UNSPECIFIED 05/21/2017 AUBREE MURRAY, NOELLE Lazar Ot F41.9 ANXIETY DISORDER, UNSPECIFIED 05/21/2017 AUBREE MURRAY, NOELLE Lazar Ot F60.9 PERSONALITY DISORDER, UNSPECIFIED 05/21/2017 AUBREE MURRAY, NOELLE Lazar Ot I10 ESSENTIAL (PRIMARY) HYPERTENSION 05/21/2017 AUBREE MURRAY, NOELLE Lazar Ot J45.909 UNSPECIFIED ASTHMA, UNCOMPLICATED 05/21/2017 AUBREE MURRAY, NOELLE Lazar Ot K21.9 GASTRO-ESOPHAGEAL REFLUX DISEASE WITHOUT 05/21/2017 AUBREE MURRAY, NOELLE Lazar Ot M06.9 RHEUMATOID ARTHRITIS, UNSPECIFIED 05/21/2017 NOELLE MAK MD Ot R10.13 EPIGASTRIC PAIN 05/21/2017 NOELLE MAK MD Ot Z77.22 CNTCT W AND EXPSR TO ENVIRON TOBACCO SMO 05/21/2017 NOELLE MAK MD Ot Z87.59 PERSONAL HISTORY OF COMP OF PREG, CHLDBR 05/21/2017 AUBREE MURRAY, NOELLE Lazar Ot Z90.13 ACQUIRED ABSENCE OF BILATERAL BREASTS AN 05/21/2017 NOELLE MAK MD Ot Z92.21 PERSONAL HISTORY OF ANTINEOPLASTIC CHEMO 05/21/2017 NOELLE MAK MD Ot Z92.3 PERSONAL HISTORY OF IRRADIATION 05/21/2017 ADE FOWLER Ot Z51.81 ENCOUNTER FOR THERAPEUTIC DRUG LEVEL MON 05/21/2017 ADE FOWLER Ot Z79.899 OTHER HALFWAY (CURRENT) DRUG THERAPY 05/21/2017 EULOGIO BRAGA MD Ot C50.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 05/21/2017 EULOGIO BRAGA MD Ot E66.9 OBESITY, UNSPECIFIED 05/21/2017 EULOGIO BRAGA MD Ot E78.5 HYPERLIPIDEMIA, UNSPECIFIED 05/21/2017 EULOGIO BRAGA MD Ot F17.210 NICOTINE DEPENDENCE, CIGARETTES, UNCOMPL 05/21/2017 EULOGIO BRAGA MD Ot F31.9 BIPOLAR DISORDER, UNSPECIFIED 05/21/2017 EULOGIO BRAGA MD Ot I10 ESSENTIAL (PRIMARY) HYPERTENSION 05/21/2017 EULOGIO BRAGA MD Ot J44.9 CHRONIC OBSTRUCTIVE PULMONARY DISEASE, U 05/21/2017 EULOGIO BRAGA MD, Ot Z17.0 ESTROGEN RECEPTOR POSITIVE STATUS [ER+] 05/21/2017 EULOGIO BRAGA MD, Ot Z51.0 ENCOUNTER FOR ANTINEOPLASTIC RADIATION T 05/21/2017 EULOGIO BRAGA MD, Ot Z68.34 BODY MASS INDEX (BMI) 34.0-34.9, ADULT 05/21/2017 EULOGIO BRAGA MD, Ot Z79.899 OTHER TEACHER ADVISOR (CURRENT) DRUG THERAPY 05/23/2017 EMILY MURPHY DO Ot C50.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 05/23/2017 EMILY MURPHY DO Ot C50.912 MALIGNANT NEOPLASM OF UNSPECIFIED SITE O 05/23/2017 EMILY MURPHY DO Ot C79.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 05/23/2017 EMILY MURPHY DO Ot E78.00 PURE HYPERCHOLESTEROLEMIA, UNSPECIFIED 05/23/2017 EMILY MURPHY DO Ot F17.210 NICOTINE DEPENDENCE, CIGARETTES, UNCOMPL 05/23/2017 EMILY MURPHY DO Ot F31.9 BIPOLAR DISORDER, UNSPECIFIED 05/23/2017 EMILY MURPHY DO Ot F41.9 ANXIETY DISORDER, UNSPECIFIED 05/23/2017 EMILY MURPHY DO Ot I10 ESSENTIAL (PRIMARY) HYPERTENSION 05/23/2017 EMILY MURPHY DO Ot J45.909 UNSPECIFIED ASTHMA, UNCOMPLICATED 05/23/2017 EMILY MURPHY DO Ot K21.9 GASTRO-ESOPHAGEAL REFLUX DISEASE WITHOUT 05/23/2017 EMILY MURPHY DO Ot M06.9 RHEUMATOID ARTHRITIS, UNSPECIFIED 05/23/2017 EMILY MURPHY DO Ot R11.2 NAUSEA WITH VOMITING, UNSPECIFIED 05/23/2017 EMILY MURPHY DO Ot R51 HEADACHE 05/23/2017 EMILY MURPHY DO Ot Z85.3 PERSONAL HISTORY OF MALIGNANT NEOPLASM O 05/23/2017 EMILY MURPHY DO Ot Z85.828 PERSONAL HISTORY OF OTHER MALIGNANT NEOP 05/23/2017 EMILY MURPHY DO Ot Z87.59 PERSONAL HISTORY OF COMP OF PREG, CHLDBR 05/23/2017 EMILY MURPHY DO Ot Z90.13 ACQUIRED ABSENCE OF BILATERAL BREASTS AN 05/23/2017 EMILY MURPHY DO Ot Z92.21 PERSONAL HISTORY OF ANTINEOPLASTIC CHEMO 05/23/2017 AUBREE MURRAY, NOELLE Lazar Ot C50.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 05/23/2017 AUBREE MURRAY, NOELLE Lazar Ot C79.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 05/23/2017 AUBREE MURRAY, NOELLE Lazar Ot E78.00 PURE HYPERCHOLESTEROLEMIA, UNSPECIFIED 05/23/2017 AUBREE MURRAY, NOELLE Lazar Ot F31.9 BIPOLAR DISORDER, UNSPECIFIED 05/23/2017 AUBREE MURRAY, NOELLE Lazar Ot F41.9 ANXIETY DISORDER, UNSPECIFIED 05/23/2017 AUBREE MURRAY, NOELLE Lazar Ot F60.9 PERSONALITY DISORDER, UNSPECIFIED 05/23/2017 AUBREE MURRAY, NOELLE Lazar Ot I10 ESSENTIAL (PRIMARY) HYPERTENSION 05/23/2017 AUBREE MURARY, NOELLE Lazar Ot J45.909 UNSPECIFIED ASTHMA, UNCOMPLICATED 05/23/2017 AUBREE MURRAY, NOELLE Lazar Ot K21.9 GASTRO-ESOPHAGEAL REFLUX DISEASE WITHOUT 05/23/2017 AUBREE MURRAY, NOELLE Lazar Ot M06.9 RHEUMATOID ARTHRITIS, UNSPECIFIED 05/23/2017 AUBREE MURRAY, NOELLE Lazar Ot R10.13 EPIGASTRIC PAIN 05/23/2017 AUBREE MURRAY, NOELLE Lazar Ot Z77.22 CNTCT W AND EXPSR TO ENVIRON TOBACCO SMO 05/23/2017 AUBREE MURRAY, NOELLE Lazar Ot Z87.59 PERSONAL HISTORY OF COMP OF PREG, CHLDBR 05/23/2017 AUBREE MURRAY, NOELLE Lazar Ot Z90.13 ACQUIRED ABSENCE OF BILATERAL BREASTS AN 05/23/2017 AUBREE MURRAY, NOELLE Lazar Ot Z92.21 PERSONAL HISTORY OF ANTINEOPLASTIC CHEMO 05/23/2017 AUBREE MURRAY, NOELLE Lazar Ot Z92.3 PERSONAL HISTORY OF IRRADIATION 06/03/2017 KAYLA MELENDEZ APRN Ot C50.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 06/03/2017 KAYLA MELENDEZ APRN Ot C79.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 06/03/2017 KAYLA MELENDEZ APRN Ot E78.00 PURE HYPERCHOLESTEROLEMIA, UNSPECIFIED 06/03/2017 KAYLA MELENDEZ APRN Ot F31.9 BIPOLAR DISORDER, UNSPECIFIED 06/03/2017 KAYLA MELENDEZ APRN Ot F41.9 ANXIETY DISORDER, UNSPECIFIED 06/03/2017 KAYLA MELENDEZ APRN Ot I10 ESSENTIAL (PRIMARY) HYPERTENSION 06/03/2017 KAYLA MELENDEZ APRN Ot J45.909 UNSPECIFIED ASTHMA, UNCOMPLICATED 06/03/2017 KAYLA MELENDEZ APRN Ot K21.9 GASTRO-ESOPHAGEAL REFLUX DISEASE WITHOUT 06/03/2017 KAYLA MELENDEZ APRN Ot M06.9 RHEUMATOID ARTHRITIS, UNSPECIFIED 06/03/2017 KAYLA MELENDEZ APRN Ot R07.89 OTHER CHEST PAIN 06/03/2017 KAYLA MELENDEZ APRN Ot 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 06/03/2017 KAYLA MELENDEZ APRN Ot Z85.828 PERSONAL HISTORY OF OTHER MALIGNANT NEOP 06/03/2017 KAYLA MELENDEZ APRN Ot Z87.59 PERSONAL HISTORY OF COMP OF PREG, CHLDBR 06/03/2017 KAYLA MELENDEZ APRN Ot Z90.13 ACQUIRED ABSENCE OF BILATERAL BREASTS AN 06/06/2017 KAYLA MELENDEZ APRN Ot C50.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 06/06/2017 KAYLA MELENDEZ APRN Ot C79.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 06/06/2017 KAYLA MELENDEZ APRN Ot E78.00 PURE HYPERCHOLESTEROLEMIA, UNSPECIFIED 06/06/2017 KAYLA MELENDEZ APRN Ot F31.9 BIPOLAR DISORDER, UNSPECIFIED 06/06/2017 KAYLA MELENDEZ APRN Ot F41.9 ANXIETY DISORDER, UNSPECIFIED 06/06/2017 KAYLA MELENDEZ APRN Ot I10 ESSENTIAL (PRIMARY) HYPERTENSION 06/06/2017 KAYLA MELENDEZ APRN Ot J45.909 UNSPECIFIED ASTHMA, UNCOMPLICATED 06/06/2017 KAYLA MELENDEZ APRN Ot K21.9 GASTRO-ESOPHAGEAL REFLUX DISEASE WITHOUT 06/06/2017 KAYLA MELENDEZ APRN Ot M06.9 RHEUMATOID ARTHRITIS, UNSPECIFIED 06/06/2017 KAYLA MELENDEZ APRN Ot R07.89 OTHER CHEST PAIN 06/06/2017 KAYLA MELENDEZ APRN Ot Z79.52 HALFWAY (CURRENT) USE OF SYSTEMIC STER 06/06/2017 KAYLA MELENDEZ APRN Ot Z85.828 PERSONAL HISTORY OF OTHER MALIGNANT NEOP 06/06/2017 KAYLA MELENDEZ APRN Ot Z87.59 PERSONAL HISTORY OF COMP OF PREG, CHLDBR 06/06/2017 KAYLA MELENDEZ APRN Ot Z90.13 ACQUIRED ABSENCE OF BILATERAL BREASTS AN 06/09/2017 KAYLA MELENDEZ APRN Ot C50.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 06/09/2017 KAYLA MELENDEZ APRN Ot C79.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 06/09/2017 KAYLA MELENDEZ APRN Ot E78.00 PURE HYPERCHOLESTEROLEMIA, UNSPECIFIED 06/09/2017 KAYLA MELENDEZ APRN Ot F31.9 BIPOLAR DISORDER, UNSPECIFIED 06/09/2017 KAYLA MELENEDZ APRN Ot F41.9 ANXIETY DISORDER, UNSPECIFIED 06/09/2017 KAYLA MELENDEZ APRN Ot I10 ESSENTIAL (PRIMARY) HYPERTENSION 06/09/2017 KAYLA MELENDEZ APRN Ot J45.909 UNSPECIFIED ASTHMA, UNCOMPLICATED 06/09/2017 KAYLA MELENDEZ APRN Ot K21.9 GASTRO-ESOPHAGEAL REFLUX DISEASE WITHOUT 06/09/2017 KAYLA MELENDEZ APRN Ot M06.9 RHEUMATOID ARTHRITIS, UNSPECIFIED 06/09/2017 KAYLA MELENDEZ APRN Ot R07.89 OTHER CHEST PAIN 06/09/2017 KAYLA MELENDEZ APRN Ot 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 Results Test [...] FOR INFLUENZA A AND B ANTIGENS BY [facility]NER Bacterial blood culture - 05/24/16 19:47 Bacterial blood culture [facility] Complete blood count (CBC) with automated white [...] culture - 05/24/16 20:59 Bacterial urine culture [id number] NRG COLONY COUNT >100,000/ML NRG FTX;REPORTABLE PLUS, [...] Manual eosinophils/100 leukocytes in nose 0 % [facility] Manual blood basophils/100 leukocytes 0 % [facility] Blood erythrocyte morphology finding identification NORMAL [facility] Comprehensive metabolic panel - 05/26/16 [...] plasma albumin measurement (mass/volume) 3.7 g/dL 3.2-4.5 Complete blood count (CBC) with automated white blood cell (WBC) differential - 05/20/17 04:20 Blood leukocytes automated count (number/volume) 5.2 10*3/uL 4.3-11.0 Blood erythrocytes automated count (number/volume) 4.09 10*6/uL 4.35-5.85 Venous blood hemoglobin measurement (mass/volume) 13.6 g/dL 11.5-16.0 Blood hematocrit (volume fraction) 39 % 35-52 Automated erythrocyte mean corpuscular volume 95 [foz_us] 80-99 Automated erythrocyte mean corpuscular hemoglobin (mass per erythrocyte) 33 pg 25-34 Automated erythrocyte mean corpuscular hemoglobin concentration measurement ( mass/volume) 35 g/dL 32-36 Automated erythrocyte distribution width ratio 15.9 % 10.0-14.5 Automated blood platelet count (count/volume) 153 10*3/uL 130-400 Automated blood platelet mean volume measurement 9.5 [foz_us] 7.4-10.4 Automated blood neutrophils/100 leukocytes 72 % 42-75 Automated blood lymphocytes/100 leukocytes 20 % 12-44 Blood monocytes/100 leukocytes 8 % 0-12 Automated blood eosinophils/100 leukocytes 1 % 0-10 Automated blood basophils/100 leukocytes 0 % 0-10 Blood neutrophils automated count (number/volume) 3.8 10*3 1.8-7.8 Blood lymphocytes automated count (number/volume) 1.0 10*3 1.0-4.0 Blood monocytes automated count (number/volume) 0.4 10*3 0.0-1.0 Automated eosinophil count 0.0 10*3/uL 0.0-0.3 Automated blood basophil count (count/volume) 0.0 10*3/uL 0.0-0.1 Comprehensive metabolic panel - 05/20/17 04:20 Serum or plasma sodium measurement (moles/volume) 139 mmol/L 135-145 Serum or plasma potassium measurement (moles/volume) 3.8 mmol/L 3.6-5.0 Serum or plasma chloride measurement (moles/volume) 105 mmol/L 98-107 Carbon dioxide 25 mmol/L 21-32 Serum or plasma anion gap determination (moles/volume) 9 mmol/L 5-14 Serum or plasma urea nitrogen measurement (mass/volume) 8 mg/dL 7-18 Serum or plasma creatinine measurement (mass/volume) 0.65 mg/dL 0.60-1.30 Serum or plasma urea nitrogen/creatinine mass ratio 12 NRG Serum or plasma creatinine measurement with calculation of estimated glomerular filtration rate > NRG Serum or plasma glucose measurement (mass/volume) 97 mg/dL 70-105 Serum or plasma calcium measurement (mass/volume) 9.1 mg/dL 8.5-10.1 Serum or plasma total bilirubin measurement (mass/volume) 0.5 mg/dL 0.1-1.0 Serum or plasma alkaline phosphatase measurement (enzymatic activity/volume) 44 U/L 40-136 Serum or plasma aspartate aminotransferase measurement (enzymatic activity/ volume) 16 U/L 5-34 Serum or plasma alanine aminotransferase measurement (enzymatic activity/volume ) 13 U/L 0-55 Serum or plasma protein measurement (mass/volume) 6.6 g/dL 6.4-8.2 Serum or plasma albumin measurement (mass/volume) 3.7 g/dL 3.2-4.5 Magnesium - 05/20/17 04:20 Magnesium 1.9 mg/dL 1.8-2.4 Serum or plasma amylase measurement (enzymatic activity/volume) - 05/20/17 04: 20 Serum or plasma amylase measurement (enzymatic activity/volume) 20 U /L 25-125 Lipase - 05/20/17 04:20 Lipase 18 U/L 8-78 Complete blood count (CBC) with automated white blood cell (WBC) differential - 05/21/17 08:15 Blood leukocytes automated count (number/volume) 4.0 10*3/uL 4.3-11.0 Blood erythrocytes automated count (number/volume) 3.97 10*6/uL 4.35-5.85 Venous blood hemoglobin measurement (mass/volume) 13.1 g/dL 11.5-16.0 Blood hematocrit (volume fraction) 38 % 35-52 Automated erythrocyte mean corpuscular volume 95 [foz_us] 80-99 Automated erythrocyte mean corpuscular hemoglobin (mass per erythrocyte) 33 pg 25-34 Automated erythrocyte mean corpuscular hemoglobin concentration measurement ( mass/volume) 35 g/dL 32-36 Automated erythrocyte distribution width ratio 16.7 % 10.0-14.5 Automated blood platelet count (count/volume) 153 10*3/uL 130-400 Automated blood platelet mean volume measurement 9.8 [foz_us] 7.4-10.4 Automated blood neutrophils/100 leukocytes 64 % 42-75 Automated blood lymphocytes/100 leukocytes 28 % 12-44 Blood monocytes/100 leukocytes 8 % 0-12 Automated blood eosinophils/100 leukocytes 0 % 0-10 Automated blood basophils/100 leukocytes 0 % 0-10 Blood neutrophils automated count (number/volume) 2.5 10*3 1.8-7.8 Blood lymphocytes automated count (number/volume) 1.1 10*3 1.0-4.0 Blood monocytes automated count (number/volume) 0.3 10*3 0.0-1.0 Automated eosinophil count 0.0 10*3/uL 0.0-0.3 Automated blood basophil count (count/volume) 0.0 10*3/uL 0.0-0.1 Comprehensive metabolic panel - 05/21/17 08:15 Serum or plasma sodium measurement (moles/volume) 141 mmol/L 135-145 Serum or plasma potassium measurement (moles/volume) 3.8 mmol/L 3.6-5.0 Serum or plasma chloride measurement (moles/volume) 108 mmol/L 98-107 Carbon dioxide 23 mmol/L 21-32 [...] NRG Serum or plasma glucose measurement (mass/volume) 94 mg/dL 70-105 Serum or plasma calcium measurement (mass/volume) 9.2 mg/dL 8.5-10.1 Serum or plasma total bilirubin measurement (mass/volume) 0.5 mg/dL 0.1-1.0 Serum or plasma alkaline phosphatase measurement (enzymatic activity/volume) 38 U/L 40-136 Serum or plasma aspartate aminotransferase measurement (enzymatic activity/ volume) 17 U/L 5-34 Serum or plasma alanine aminotransferase measurement (enzymatic activity/volume ) 11 U/L 0-55 Serum or plasma protein measurement (mass/volume) 6.5 g/dL 6.4-8.2 Serum or plasma albumin measurement (mass/volume) 3.7 g/dL 3.2-4.5 Lipase - 05/21/17 08:15 Lipase 11 U/L 8-78 Complete blood count (CBC) with automated white blood cell (WBC) differential - 06/03/17 12:05 Blood leukocytes automated count (number/volume) 4.5 10*3/uL 4.3-11.0 Blood erythrocytes automated count (number/volume) 4.35 10*6/uL 4.35-5.85 Venous blood hemoglobin measurement (mass/volume) 14.3 g/dL 11.5-16.0 Blood hematocrit (volume fraction) 41 % 35-52 Automated erythrocyte mean corpuscular volume 94 [foz_us] 80-99 Automated erythrocyte mean corpuscular hemoglobin (mass per erythrocyte) 33 pg 25-34 Automated erythrocyte mean corpuscular hemoglobin concentration measurement ( mass/volume) 35 g/dL 32-36 Automated erythrocyte distribution width ratio 16.7 % 10.0-14.5 Automated blood platelet count (count/volume) 187 10*3/uL 130-400 Automated blood platelet mean volume measurement 9.5 [foz_us] 7.4-10.4 Automated blood neutrophils/100 leukocytes 69 % 42-75 Automated blood lymphocytes/100 leukocytes 21 % 12-44 Blood monocytes/100 leukocytes 9 % 0-12 Automated blood eosinophils/100 leukocytes 1 % 0-10 Automated blood basophils/100 leukocytes 0 % 0-10 Blood neutrophils automated count (number/volume) 3.1 10*3 1.8-7.8 Blood lymphocytes automated count (number/volume) 0.9 10*3 1.0-4.0 Blood monocytes automated count (number/volume) 0.4 10*3 0.0-1.0 Automated eosinophil count 0.0 10*3/uL 0.0-0.3 Automated blood basophil count (count/volume) 0.0 10*3/uL 0.0-0.1 Comprehensive metabolic panel - 06/03/17 12:05 Serum or plasma sodium measurement (moles/volume) 142 mmol/L 135-145 Serum or plasma potassium measurement (moles/volume) 3.0 mmol/L 3.6-5.0 Serum or plasma chloride measurement (moles/volume) 105 mmol/L 98-107 Carbon dioxide 26 mmol/L 21-32 Serum or plasma anion gap determination (moles/volume) 11 mmol/L 5-14 Serum or plasma urea nitrogen measurement (mass/volume) 4 mg/dL 7-18 Serum or plasma creatinine measurement (mass/volume) 0.66 mg/dL 0.60-1.30 Serum or plasma urea nitrogen/creatinine mass ratio 6 NRG Serum or plasma creatinine measurement with calculation of estimated glomerular filtration rate > NRG Serum or plasma glucose measurement (mass/volume) 112 mg/dL 70-105 Serum or plasma calcium measurement (mass/volume) 9.3 mg/dL 8.5-10.1 Serum or plasma total bilirubin measurement (mass/volume) 0.5 mg/dL 0.1-1.0 Serum or plasma alkaline phosphatase measurement (enzymatic activity/volume) 53 U/L 40-136 Serum or plasma aspartate aminotransferase measurement (enzymatic activity/ volume) 22 U/L 5-34 Serum or plasma alanine aminotransferase measurement (enzymatic activity/volume ) 18 U/L 0-55 Serum or plasma protein measurement (mass/volume) 6.5 g/dL 6.4-8.2 Serum or plasma albumin measurement (mass/volume) 3.6 g/dL 3.2-4.5 Serum or plasma troponin i.cardiac measurement (mass/volume) - 06/03/17 12:05 Serum or plasma troponin i.cardiac measurement (mass/volume) < ng/ mL <0.30 Encounters ACCT No. Visit Date/Time Discharge Status Pt. Type Provider Facility Loc./Unit Complaint [id number] 06/03/2017 11:53:00 06/03/2017 13:57:00 DIS Emergency KAYLA MELENDEZ APRN [facility] ER JAW PAIN [id number] 05/21/2017 08:03:00 05/21/2017 11:13:00 DIS Emergency AUBREE MURRAY, NOELLE Lazar [facility] ER CHEST PAIN [id number] 05/20/2017 03:45:00 05/20/2017 06:00:00 DIS Emergency EMILY MURPHY DO [facility] ER WOLF [id number] 03/30/2017 00:29:00 03/30/2017 23:59:59 CLS Preadmit EULOGIO BRAGA MD [facility] ONC [id number] 01/12/2017 09:52:00 03/29/2017 00:01:00 DIS Outpatient EULOGIO BRAGA MD [facility] ONC [id number] 03/27/2017 10:40:00 03/27/2017 14:16:00 DIS Emergency KARLIE ZHU MD [facility] ER BRAIN TUMOR/HEAD PAIN/ L SIDE PAIN [id number] 01/07/2017 14:47:00 01/07/2017 18:14:00 DIS Emergency KAYLA MELENDEZ APRN [facility] ER N/V [id number] 12/29/2016 09:50:00 12/29/2016 11:15:00 DIS Emergency EMILY MURPHY DO [facility] ER MIGRAINES,NOSEBLEEDS [id number] 07/20/2016 15:28:00 10/18/2016 00:01:00 DIS Outpatient EULOGIO BRAGA MD [facility] ONC [id number] 06/28/2016 08:24:00 06/28/2016 10:05:00 DIS Emergency SEVERO MURRAY, YANG Cesario [facility] ER BREAST AREA PAIN/ BLISTED/BLEEDING FROM RADIATION [id number] 06/24/2016 09:48:00 06/24/2016 23:59:59 CLS Outpatient OMI MURRAY, EULOGIO [facility] ONC [id number] 05/26/2016 12:42:00 05/26/2016 15:18:00 DIS Emergency MARKO MURRAY, KARLIE Owens [facility] ER RECTAL BLEEDING/PAIN [id number] 05/24/2016 20:35:00 05/25/2016 13:15:00 DIS Inpatient TERRI MURRAY, ABAD Cifuentes [facility] 4TH FEVER,BRONCHITIS,HYPOXIA, BREAST CA-ON CHEMO AND RA [id number] 03/04/2016 10:37:00 03/04/2016 11:16:00 DIS Emergency KAYLA MELENDEZ APRN [facility] ER PAIN/SWELLING RIGHT BREAST AREA [id number] 03/01/2016 10:03:00 03/01/2016 23:59:59 CLS Outpatient ADE FOWLER [facility] LAB [id number] 02/16/2016 08:21:00 02/16/2016 12:11:00 DIS Emergency EDIL QURESHI [facility] ER ANXIETY, NEEDING PORT FLUSHED [id number] 05/13/2015 08:02:00 07/30/2015 00:01:00 DIS Outpatient CEE ALSTON MD [facility] ONC [id number] 05/01/2015 11:17:00 05/01/2015 23:59:59 CLS Outpatient CEE ALSTON MD [facility] CARD BREAST CANCER [id number] 04/22/2015 11:06:00 04/22/2015 23:59:59 CLS Preadmit SANDRA TANG [facility] ONC [id number] 04/07/2015 10:59:00 04/14/2015 00:01:00 DIS Outpatient CEE ALSTON MD [facility] ONC [id number] 04/07/2015 11:51:00 04/07/2015 23:59:59 CLS Outpatient SANDRA TANG [facility] ONC [id number] 04/07/2015 11:17:00 04/07/2015 23:59:59 CLS Outpatient CEE ALSTON MD [facility] CARD BREAST CANCER [id number] 03/19/2015 08:29:00 03/19/2015 13:05:00 DIS Outpatient CAM BRAGA MD [facility] SDC RIGHT BREAST CANCER [id number] 03/17/2015 06:12:00 03/17/2015 23:59:59 CLS Outpatient CAM BRAGA MD [facility] PREOP RIGHT BREAST CANCER [id number] 02/17/2015 10:18:00 02/17/2015 23:59:59 CLS Outpatient CEE ALSTON MD [facility] 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 [id number] 01/24/2015 13:52:00 01/24/2015 23:59:59 CLS Outpatient CEE ALSTON MD [facility] CARD ENCOUNTER FOR MONITORING CARDIOTOXIC DRUGS [id number] 01/23/2015 14:18:00 01/23/2015 23:59:59 CLS Outpatient SANDRA TANG [facility] ONC [id number] 01/23/2015 09:31:00 01/23/2015 23:59:59 CLS Outpatient CEE ALSTON MD [facility] RAD BREAST CA [id number] 01/22/2015 14:57:00 01/22/2015 23:59:59 CLS Outpatient CEE ALSTON MD [facility] RAD ABN MAMMO [id number] 01/17/2015 09:42:00 01/17/2015 23:59:59 CLS Outpatient CEE ALSTON MD [facility] CARD ENCOUNTER FOR MONITOR CARDIO TOXIC DRUG THERAPY [id number] 01/17/2015 09:38:00 01/17/2015 17:00:00 DIS Outpatient CAM BRAGA MD [facility] SDC BREAST CANCER [id number] 01/15/2015 13:52:00 01/15/2015 23:59:59 CLS Outpatient SHERRY ROGEL MD (DDU) [facility] RT DDU [id number] 01/15/2015 05:43:00 01/15/2015 23:59:59 CLS Outpatient CAM BRAGA MD [facility] PREOP [id number] 01/03/2015 07:05:00 01/03/2015 23:59:59 CLS Outpatient DARÍO BURROWS SPEECH LANGUAGE PATHOLOGIST [facility] RAD ABNORMAL MAMMO, BREAST MASS [id number] 01/01/2015 14:58:00 01/01/2015 23:59:59 CLS Outpatient DARÍO BURROWS SPEECH LANGUAGE PATHOLOGIST [facility] RAD BREAST PAIN RT BREAST [id number] 12/25/2014 16:08:00 12/25/2014 17:23:00 DIS Emergency KAYLA MELENDEZ SPEECH LANGUAGE PATHOLOGIST [facility] ER R BREAST SWELLING/ TENDERNESS [id number] 12/19/2014 08:51:00 12/19/2014 11:43:00 DIS Emergency REGINALDO ANNA MD [facility] ER COUGH/FEVER [id number] 11/21/2014 11:43:00 11/21/2014 13:07:00 DIS Emergency KAYLA MELENDEZ SPEECH LANGUAGE PATHOLOGIST [facility] ER SOA [id number] 11/08/2014 14:38:00 11/08/2014 16:53:00 DIS Emergency REGINALDO ANNA MD [facility] ER SOA [id number] 10/28/2014 14:21:00 10/28/2014 23:59:59 CLS Outpatient DARÍO BURROWS SPEECH LANGUAGE PATHOLOGIST [facility] RAD LOCALIZE SWELLING MASS OR HEAD 3 ABNORMAL GROWTHS [id number] 10/11/2014 09:35:00 10/11/2014 10:09:00 DIS Emergency REGINALDO ANNA MD [facility] ER RASH [id number] 09/27/2014 09:09:00 09/27/2014 10:19:00 DIS Emergency MARKO MURRAY, KARLIE Owens [facility] ER
[2017-06-29] MEDS ORDERED: morphine INJ 10 MG/ML 1ML (SYR OR VIAL) IVP ONE (12:00)
--- NOTE | 2017-06-29 12:00 | ED General ---
General Stated Complaint: ELEVATED WBC Source of Information: Patient Exam Limitations: No Limitations History of Present Illness Date Seen by Provider: June 29, 2017 Time Seen by Provider: 11:58 Initial Comments to ER per private vehicle from home with reports of elevated white blood cell count. 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 She received brain radiation and chemotherapy. She finished chemotherapy 4 days ago. She received a Neulasta injection subcutaneously yesterday. Today she had a routine Depakote level checked in addition to a CBC at [facility] and was found incidentally to have a white blood cell count of 29,550. Hemoglobin 14.5, 15% bands, 7% lymphocytes 76% neutrophils. Platelet count 233,000. [facility] notified the patient's primary care provider Dr. Murray who referred her to the emergency room for evaluation. She reports diffuse aches and pains but that has been an ongoing problem. She denies fevers chills cough or new pain. she does not have a local oncologist, follows with Dr Vines from [facility] Timing/Duration: Other Severity: Moderate Allergies and Home Medications Allergies Coded Allergies: No Known Drug Allergies (Unverified , 09/27/14) Home Medications Dexamethasone 4 Mg Tablet, 8 MG PO QID Prescribed by: EMILY MURPHY on 12/29/16 1114 Divalproex Sodium 500 Mg Tab.er.24h, 2,000 MG PO HS, (Reported) TAKES 4 (500MG) TABLETS Lorazepam 1 Mg Tablet, 1 MG PO Q6H Prescribed by: EMILY MURPHY on 12/29/16 1114 Promethazine HCl 25 Mg Supp.rect, 25 MG RC Q4H Prescribed by: EMILY MURPHY on 05/20/17 0549 Patient Home Medication List Home Medication List Reviewed: Yes Review of Systems Constitutional: see HPI; No chills, No fever EENTM: see HPI Respiratory: no symptoms reported Cardiovascular: no symptoms reported Genitourinary: no symptoms reported Musculoskeletal: no symptoms reported Skin: no symptoms reported Psychiatric/Neurological: No Symptoms Reported Hematologic/Lymphatic: No Symptoms Reported Past Bzuomkr-Wtxide-Vwyxzj Hx Patient Social History Type Used: Cigarettes 2nd Hand Smoke Exposure: Yes Recent Foreign Travel: No Contact w/Someone Who Travel: No Recent Hopitalizations: No Immunizations Up To Date Tetanus Booster (TDap): Unknown Seasonal Allergies Seasonal Allergies: No Past Medical History Surgeries: Yes (INFUSAPORT; BILATERAL MASTECTOMY) Breast, Section, Gallbladder, Vascular Surgery Respiratory: Yes Asthma Cardiac: Yes High Cholesterol, Hypertension Neurological: Yes (BRAIN METS FROM BREAST CANCER) 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: No (THROUGH MENOPAUSE) Female 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 Sexually Transmitted Disease: No HIV/AIDS: No Genitourinary: No Gastrointestinal: Yes Gastroesophageal Reflux Musculoskeletal: Yes Rheumatoid Arthritis, Chronic Back Pain Endocrine: No HEENT: Yes (TEETH REMOVED) Loss of Vision: Denies Hearing Impairment: Denies Cancer: Yes Skin, Breast Did You Recieve Any Treatments: Yes What Type of Treatment Did You: Chemotherapy, Radiation, Surgical Intervention Psychosocial: Yes Anxiety, Bipolar, Personality Disorder, Depression Integumentary: No Blood Disorders: No Adverse Reaction/Blood Tranf: No (HAS HAD BLOOD TRANSFUSION WITH NO PROBLEM) Family Medical History Not obtainable due to adoption (ADOPTION) No Pertinent Family Hx Physical Exam Vital Signs Vital Signs - First Documented 06/29/17 12:21 Temp 98.6 Pulse 80 Resp 20 B/P (MAP) 123/75 (91) Pulse Ox 95 O2 Delivery Room Air Capillary Refill : General Appearance: No Apparent Distress, WD/WN, Chronically ill Eyes: Bilateral Eye Normal Inspection, Bilateral Eye PERRL, Bilateral Eye EOMI HEENT: PERRL/EOMI, TMs Normal Respiratory: No Accessory Muscle Use, No Respiratory Distress Cardiovascular: Regular Rate, Rhythm, Normal Peripheral Pulses Gastrointestinal: Non Tender, Soft Extremity: Normal Capillary Refill, Normal Inspection Neurologic/Psychiatric: Alert, Oriented x3 Skin: Normal Color, Warm/Dry Focused Exam Lactate Level 06/29/17 12:15: Lactic Acid Level 1.34 Lactic Acid Level Laboratory Tests Test 06/29/17 12:15 Lactic Acid Level 1.34 MMOL/L (0.50-2.00) Progress/Results/Core Measures Suspected Sepsis SIRS Temperature: Pulse: Respiratory Rate: Laboratory Tests 06/29/17 12:15: White Blood Count 26.6H Blood Pressure / Mean: 06/29/17 12:15: Lactic Acid Level 1.34 Laboratory Tests 06/29/17 12:15: Creatinine 0.58L, Platelet Count 222, Total Bilirubin 0.3 Results/Orders Lab Results Laboratory Tests Test 06/29/17 12:15 06/29/17 12:55 Range/Units White Blood Count 26.6 H 4.3-11.0 10^3/uL Red Blood Count 4.23 L 4.35-5.85 10^6/uL Hemoglobin 13.4 11.5-16.0 G/DL Hematocrit 40 35-52 % Mean Corpuscular Volume 94 80-99 FL Mean Corpuscular Hemoglobin 32 25-34 PG Mean Corpuscular Hemoglobin Concent 34 32-36 G/DL Red Cell Distribution Width 14.9 H 10.0-14.5 % Platelet Count 222 130-400 10^3/uL Mean Platelet Volume 10.2 7.4-10.4 FL Neutrophils (%) (Auto) 90 H 42-75 % Lymphocytes (%) (Auto) 5 L 12-44 % Monocytes (%) (Auto) 4 0-12 % Eosinophils (%) (Auto) 1 0-10 % Basophils (%) (Auto) 0 0-10 % Neutrophils # (Auto) 24.0 H 1.8-7.8 X 10^3 Lymphocytes # (Auto) 1.2 1.0-4.0 X 10^3 Monocytes # (Auto) 1.0 0.0-1.0 X 10^3 Eosinophils # (Auto) 0.3 0.0-0.3 10^3/uL Basophils # (Auto) 0.0 0.0-0.1 10^3/uL Neutrophils % (Manual) 84 % Lymphocytes % (Manual) 2 % Monocytes % (Manual) 3 % Eosinophils % (Manual) 0 % Basophils % (Manual) 0 % Band Neutrophils 10 % Reactive Lymphocytes 1 % Blood Morphology Comment NORMAL Sodium Level 140 135-145 MMOL/L Potassium Level 3.0 L 3.6-5.0 MMOL/L Chloride Level 105 98-107 MMOL/L Carbon Dioxide Level 25 21-32 MMOL/L Anion Gap 10 5-14 MMOL/L Blood Urea Nitrogen 2 L 7-18 MG/DL Creatinine 0.58 L 0.60-1.30 MG/DL Estimat Glomerular Filtration Rate > 60 BUN/Creatinine Ratio 3 Glucose Level 71 70-105 MG/DL Lactic Acid Level 1.34 0.50-2.00 MMOL/L Calcium Level 8.8 8.5-10.1 MG/DL Total Bilirubin 0.3 0.1-1.0 MG/DL Aspartate Amino Transf (AST/SGOT) 24 5-34 U/L Alanine Aminotransferase (ALT/SGPT) 21 0-55 U/L Alkaline Phosphatase 69 40-136 U/L Total Protein 6.7 6.4-8.2 GM/DL Albumin 3.9 3.2-4.5 GM/DL Urine Color YELLOW Urine Clarity CLEAR Urine pH 7 5-9 Urine Specific [place] 1.005 L 1.016-1.022 Urine Protein NEGATIVE NEGATIVE Urine Glucose (UA) NEGATIVE NEGATIVE Urine Ketones NEGATIVE NEGATIVE Urine Nitrite NEGATIVE NEGATIVE Urine Bilirubin NEGATIVE NEGATIVE Urine Urobilinogen NORMAL NORMAL MG/DL Urine Leukocyte Esterase NEGATIVE NEGATIVE Urine RBC (Auto) NEGATIVE NEGATIVE Urine RBC NONE /HPF Urine WBC RARE /HPF Urine Squamous Epithelial Cells 2-5 /HPF Urine Crystals NONE /LPF Urine Bacteria NEGATIVE /HPF Urine Casts NONE /LPF Urine Mucus NEGATIVE /LPF Urine Culture Indicated NO My Orders Orders - KAYLA MELENDEZ [employer]ASKETBALL REFEREE Cbc With Automated Diff (06/29/17 11:54) Comprehensive Metabolic Panel (06/29/17 11:54) Blood Culture (06/29/17 11:54) Lactic Acid Analyzer (06/29/17 11:54) Ua Culture If Indicated (06/29/17 11:54) Chest 1 View, Ap/Pa Only (06/29/17 12:00) Morphine Injection (Morphine Injection (06/29/17 12:00) Manual Differential (06/29/17 12:15) Potassium Chloride (Tablet) (K Dur Table (06/29/17 13:30) Medications Given in ED Current Medications Medications Dose Ordered Sig/Nilda Route Start Time Stop Time Status Last Admin Dose Admin Morphine Sulfate 4 mg ONCE ONCE IVP 06/29/17 12:00 06/29/17 12:01 DC 06/29/17 12:39 4 MG Vital Signs/I&O 06/29/17 06/29/17 12:21 12:21 Temp 98.6 Pulse 80 Resp 20 B/P (MAP) 123/75 (91) Pulse Ox 95 O2 Delivery Room Air Capillary Refill : Diagnostic Imaging Diagonstic Imaging: Xray Plain Films/CT/US/NM/MRI: chest Comments NAME: TESFAYECLARITA AUGUSTIN Cady MED REC#: [id number] PT STATUS: REG ER : 1965 PHYSICIAN: KAYLA MELENDEZ APRN ADMIT DATE: 06/29/17/ER Draft Date of Exam:06/29/17 CHEST 1 VIEW, AP/PA ONLY CLINICAL INDICATION: Patient has elevated WBC. No chest complaints. EXAM: Portable chest x-ray upright view. COMPARISONS: Chest x-ray dated 06/03/2017. FINDINGS: Again seen Lricja-w-Dpan overlying left chest with tip in the distal superior vena cava. Lungs/pleura: Lungs are clear. There is no pneumothorax. There is no pleural effusion. Mediastinum: Unremarkable. Pulmonary vasculature: Unremarkable. Heart: Unremarkable. Bones/extrathoracic soft tissue: Unremarkable. IMPRESSION: There is no radiographic evidence of acute cardiopulmonary process. Dictated on workstation # [id number] Dict: 06/29/17 1219 Trans: 06/29/17 1221 [id number] Interpreted by: URBANO STEARNS MD Electronically signed by: Departure Communication (Admissions) 1317- I suspect that her leukocytosis is secondary to the Neulasta injection she received yesterday. However I'll speak with [facility] emergency telecommunications dispatcher to verify that there are no other concerns. 1318* i spoke with Dr. Messer who agrees this is likely from Neulasta. I also spoke with patient's oncologist Dr. Vines who is familiar with the patient and agrees this is from Neulasta. Impression Primary Impression: Primary cancer of right breast with metastasis to other site Additional Impression: Leukocytosis Disposition: 01 HOME, SELF-CARE Condition: Stable Departure-Patient Inst. Referrals: ABAD MURRAY MD (PCP/Family) Primary Care Physician Copy Copies To 1: ABAD MURRAY MD, PETER J APRN June 29, 2017 12:00
--- NOTE | 2017-06-29 12:22 | Diagnostic Imaging Report ---
CLINICAL INDICATION: Patient has elevated WBC. No chest complaints. EXAM: Portable chest x-ray upright view. COMPARISONS: Chest x-ray dated 06/03/2017. FINDINGS: Again seen Pzmdgw-g-Siai overlying left chest with tip in the distal superior vena cava. Lungs/pleura: Lungs are clear. There is no pneumothorax. There is no pleural effusion. Mediastinum: Unremarkable. Pulmonary vasculature: Unremarkable. Heart: Unremarkable. Bones/extrathoracic soft tissue: Unremarkable. IMPRESSION: There is no radiographic evidence of acute cardiopulmonary process. Dictated by: Dictated on workstation # [id number]
[2017-06-29 12:32] LABS: BASOPHILS % (AUTO) 0 % (0-10); EOSINOPHILS # (AUTO) 0.3 10^3/uL (0.0-0.3); EOSINOPHILS % (AUTO) 1 % (0-10); HEMATOCRIT 40 % (35-52); HEMOGLOBIN 13.4 G/DL (11.5-16.0); LYMPHOCYTES # (AUTO) 1.2 X 10^3 (1.0-4.0); LYMPHOCYTES % (AUTO) 5 % (12-44); MEAN CORPUSCULAR HEMOGLOBIN 32 PG (25-34); MEAN CORPUSCULAR HGB CONC 34 G/DL (32-36); MEAN CORPUSCULAR VOLUME 94 FL (80-99); MEAN PLATELET VOLUME 10.2 FL (7.4-10.4); MONOCYTES % (AUTO) 4 % (0-12); NEUTROPHILS % (AUTO) 90 % (42-75); PLATELET COUNT 222 10^3/uL (130-400); RED BLOOD COUNT 4.23 10^6/uL (4.35-5.85); RED CELL DISTRIBUTION WIDTH 14.9 % (10.0-14.5); WHITE BLOOD COUNT 26.6 10^3/uL (4.3-11.0)
[2017-06-29 12:49] LABS: ALANINE AMINOTRANSFERASE 21 U/L (0-55); ALBUMIN 3.9 GM/DL (3.2-4.5); ALKALINE PHOSPHATASE 69 U/L (40-136); BILIRUBIN,TOTAL 0.3 MG/DL (0.1-1.0); BUN/CREATININE RATIO 3; CALCIUM 8.8 MG/DL (8.5-10.1); CARBON DIOXIDE 25 MMOL/L (21-32); CHLORIDE 105 MMOL/L (98-107); CREATININE SERUM 0.58 MG/DL (0.60-1.30); GFR ESTIMATED > 60; GLUCOSE 71 MG/DL (70-105); SODIUM 140 MMOL/L (135-145); TOTAL PROTEIN 6.7 GM/DL (6.4-8.2)
[2017-06-29 13:00] LABS: BAND NEUTROPHILS 10 %; BASOPHILS % (MANUAL) 0 %; EOSINOPHILS % (MANUAL) 0 %; LYMPHOCYTES % (MANUAL) 2 %; MONOCYTES % (MANUAL) 3 %; NEUTROPHILS % (MANUAL) 84 %; RBC MORPH NORMAL; REACTIVE LYMPHOCYTES 1 %
[2017-06-29 13:07] LABS: BILIRUBIN,URINE NEGATIVE (NEGATIVE); CLARITY,URINE CLEAR; COLOR,URINE YELLOW; GLUCOSE, URINE (UA) NEGATIVE (NEGATIVE); KETONES,URINE NEGATIVE (NEGATIVE); LEUKOCYTE ESTERASE ,URINE NEGATIVE (NEGATIVE); NITRITE,URINE NEGATIVE (NEGATIVE); PH,URINE 7 (5-9); PROTEIN,URINE NEGATIVE (NEGATIVE); UROBILINOGEN,URINE NORMAL (NORMAL)
[2017-06-29 13:14] LABS: BACTERIA,URINE NEGATIVE /HPF; WBC,URINE RARE /HPF
[2017-06-29] MEDS ORDERED: KCL 20 MEQ TAB (K-DUR) PO ONE (13:30)
[2017-06-29 13:35] VITALS: BP 120/72
== END 2017-06-29 13:35 | disposition home or self-care (01) ==
LOC: EDUNIT# 11:26 → ER 11:27
DX: C50.911 Malignant neoplasm of unspecified site of right female breast (principal); C79.31 Secondary malignant neoplasm of brain; D72.829 Elevated white blood cell count, unspecified; J45.909 Unspecified asthma, uncomplicated; E78.00 Pure hypercholesterolemia, unspecified; I10 Essential (primary) hypertension; K21.9 Gastro-esophageal reflux disease without esophagitis; F41.9 Anxiety disorder, unspecified; F31.9 Bipolar disorder, unspecified; M06.9 Rheumatoid arthritis, unspecified; Z79.52 Long term (current) use of systemic steroids; Z87.59 Personal history of other complications of pregnancy, childbirth and the puerperium; Z92.21 Personal history of antineoplastic chemotherapy; Z90.13 Acquired absence of bilateral breasts and nipples
CPT/HCPCS: 36415; 71045; 80053; 81000; 83605; 85007; 85027; 87040; 96374

== ENCOUNTER 2017-07-04 09:00 | Emergency (ER) | payer MEDICARE, MEDICAID ==
[~2017-07-04] VITALS: Ht 154.9 cm; Wt 63.5 kg
[2017-07-04] MEDS ORDERED: fentaNYL INJECTION 100 MCG/2 ML AMP IVP ONE (09:45)
--- NOTE | 2017-07-04 09:49 | ED Abdominal Pain ---
General Chief Complaint: General Problems/Pain Stated Complaint: ABD PAIN AFTER PICC LINE PLACED Nursing Triage Note: PT CO OF ABD PAIN IN R LOWER ABD FROM SQ NUELESTA MED POD. PT STATES HAS HAD SINCE LAST TUESDAY, READING ON POD SAYS EMPTY RATES PAIN 5/10 Sepsis Screen: No Definite Risk Source of Information: Patient Exam Limitations: No Limitations History of Present Illness Date Seen by Provider: July 04, 2017 Time Seen by Provider: 09:40 Initial Comments Patient presents to ER by private conveyance with a chief complaint is having one day progressively worsening abdominal pain around the site of her Neulasta on pro-. 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 She had this placed 5-6 days ago she believes by her oncologist at [facility]. She's been having nausea but she is treating it with her nausea medicines and that's been okay last dose was Compazine yesterday. She's using her intermediate release morphine 15 mg twice a day and says this out and touching the pain. She does not use Tylenol or Motrin per her doctor's instructions. Her pain does not radiate anywhere. She is not having nausea presently or diarrhea. She denies constipation. Patient states that her oncologist is been working with her elevated white count and low platelets for the past couple weeks. Allergies and Home Medications Allergies Coded Allergies: No Known Drug Allergies (Unverified , 09/27/14) Home Medications Dexamethasone 4 Mg Tablet, 8 MG PO QID Prescribed by: EMILY MURPHY on 12/29/16 1114 Divalproex Sodium 500 Mg Tab.er.24h, 2,000 MG PO HS, (Reported) TAKES 4 (500MG) TABLETS Lorazepam 1 Mg Tablet, 1 MG PO Q6H Prescribed by: EMILY MURPHY on 12/29/16 1114 Promethazine HCl 25 Mg Supp.rect, 25 MG RC Q4H Prescribed by: EMILY MURPHY on 05/20/17 0549 Patient Home Medication List Home Medication List Reviewed: Yes Review of Systems Constitutional: No chills, No diaphoresis EENTM: No Blurred Vision, No Double Vision Respiratory: Denies Cough, Denies Shortness of Air Cardiovascular: Denies Chest Pain, Denies Edema Gastrointestinal: Denies Abdomen Distended; Abdominal Pain; Denies Constipated , Denies Diarrhea, Denies Nausea, Denies Vomiting Genitourinary: Denies Burning, Denies Discharge Musculoskeletal: No back pain, No joint pain Skin: No pruritus, No rash Psychiatric/Neurological: Denies Headache, Denies Numbness, Denies Paresthesia Past Xrhiujm-Iujzty-Koxzvt Hx Patient Social History Alcohol Use: Denies Use Recreational Drug Use: No Smoking Status: Current Everyday Smoker Type Used: Cigarettes 2nd Hand Smoke Exposure: Yes Recent Foreign Travel: No Contact w/Someone Who Travel: No Recent Infectious Disease Expo: No Recent Hopitalizations: Yes Physical Abuse: No Sexual Abuse: No Immunizations Up To Date Tetanus Booster (TDap): Unknown Seasonal Allergies Seasonal Allergies: No Past Medical History Surgeries: Yes (INFUSAPORT; BILATERAL MASTECTOMY) Appendectomy, Breast, Section, Gallbladder, Vascular Surgery Respiratory: Yes Asthma Cardiac: Yes High Cholesterol, Hypertension Neurological: Yes (BRAIN METS FROM BREAST CANCER) 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: No (THROUGH MENOPAUSE) Female 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 Sexually Transmitted Disease: No HIV/AIDS: No Genitourinary: No Gastrointestinal: Yes Gastroesophageal Reflux Musculoskeletal: Yes Rheumatoid Arthritis, Chronic Back Pain Endocrine: No HEENT: Yes (TEETH REMOVED) Loss of Vision: Denies Hearing Impairment: Denies Cancer: Yes Skin, Breast Did You Recieve Any Treatments: Yes What Type of Treatment Did You: Chemotherapy, Radiation, Surgical Intervention Psychosocial: Yes Anxiety, Bipolar, Personality Disorder, Depression Nursing Suicide Risk Score: 0 Integumentary: No Blood Disorders: No Adverse Reaction/Blood Tranf: No (HAS HAD BLOOD TRANSFUSION WITH NO PROBLEM) Family Medical History Not obtainable due to adoption (ADOPTION) No Pertinent Family Hx Physical Exam Vital Signs Vital Signs - First Documented 07/04/17 09:10 Temp 97.9 Pulse 75 Resp 18 B/P (MAP) 146/83 (104) Pulse Ox 100 Capillary Refill : Less Than 3 Seconds General Appearance: WD/WN, no apparent distress HEENT: PERRL/EOMI, pharynx normal Neck: non-tender, normal inspection Respiratory: chest non-tender, lungs clear Cardiovascular: normal peripheral pulses, regular rate, rhythm Gastrointestinal: normal bowel sounds, soft, tenderness (around the side of the Neulasta on pro-) Extremities: normal inspection, no pedal edema, normal capillary refill Neurologic/Psychiatric: alert, oriented x 3 Skin: normal color, warm/dry Progress/Results/Core Measures Results/Orders Lab Results Laboratory Tests Test 07/04/17 10:30 Range/Units White Blood Count 18.5 H 4.3-11.0 10^3/uL Red Blood Count 4.23 L 4.35-5.85 10^6/uL Hemoglobin 13.4 11.5-16.0 G/DL Hematocrit 39 35-52 % Mean Corpuscular Volume 93 80-99 FL Mean Corpuscular Hemoglobin 32 25-34 PG Mean Corpuscular Hemoglobin Concent 34 32-36 G/DL Red Cell Distribution Width 15.2 H 10.0-14.5 % Platelet Count 51 L 130-400 10^3/uL Mean Platelet Volume 11.1 H 7.4-10.4 FL Neutrophils (%) (Auto) 85 H 42-75 % Lymphocytes (%) (Auto) 7 L 12-44 % Monocytes (%) (Auto) 7 0-12 % Eosinophils (%) (Auto) 1 0-10 % Basophils (%) (Auto) 0 0-10 % Neutrophils # (Auto) 15.8 H 1.8-7.8 X 10^3 Lymphocytes # (Auto) 1.3 1.0-4.0 X 10^3 Monocytes # (Auto) 1.2 H 0.0-1.0 X 10^3 Eosinophils # (Auto) 0.1 0.0-0.3 10^3/uL Basophils # (Auto) 0.1 0.0-0.1 10^3/uL Neutrophils % (Manual) 81 % Lymphocytes % (Manual) 5 % Monocytes % (Manual) 7 % Eosinophils % (Manual) 0 % Basophils % (Manual) 0 % Band Neutrophils 7 % Blood Morphology Comment NORMAL Sodium Level 137 135-145 MMOL/L Potassium Level 3.6 3.6-5.0 MMOL/L Chloride Level 105 98-107 MMOL/L Carbon Dioxide Level 19 L 21-32 MMOL/L Anion Gap 13 5-14 MMOL/L Blood Urea Nitrogen 5 L 7-18 MG/DL Creatinine 0.63 0.60-1.30 MG/DL Estimat Glomerular Filtration Rate > 60 BUN/Creatinine Ratio 8 Glucose Level 144 H 70-105 MG/DL Calcium Level 8.8 8.5-10.1 MG/DL Total Bilirubin 0.2 0.1-1.0 MG/DL Aspartate Amino Transf (AST/SGOT) 58 H 5-34 U/L Alanine Aminotransferase (ALT/SGPT) 38 0-55 U/L Alkaline Phosphatase 130 40-136 U/L Total Protein 6.4 6.4-8.2 GM/DL Albumin 3.3 3.2-4.5 GM/DL My Orders Orders - ZEKE ARCHER Cbc With Automated Diff (07/04/17 09:44) Comprehensive Metabolic Panel (07/04/17 09:44) Fentanyl Injection (Sublimaze Injection (07/04/17 09:45) Manual Differential (07/04/17 10:30) Medications Given in ED Current Medications Medications Dose Ordered Sig/Nilda Route Start Time Stop Time Status Last Admin Dose Admin Fentanyl Citrate 50 mcg ONCE ONCE IVP 07/04/17 09:45 07/04/17 09:48 DC 07/04/17 10:24 50 MCG Vital Signs/I&O 07/04/17 09:10 Temp 97.9 Pulse 75 Resp 18 B/P (MAP) 146/83 (104) Pulse Ox 100 Blood Pressure Mean: 104 Progress Progress Note : Time: 11:13 Progress Note Her white count is elevated which is a known chronic problem. She's not expressing any fever or sepsis-like vital signs. Her pain is significantly improved with the removal of the pump and administration of fentanyl. She is asking for some more morphine to go. You'll be happy to provide her with this. She has an appointment on the eighth, 11 days from now. We have asked that she call her oncologist office tomorrow during business hours and just advised them of what happened. Departure Impression Primary Impression: Pain of skin Additional Impressions: History of cancer Hx antineoplastic chemotherapy Leukocytosis Qualified Codes: D72.829 - Elevated white blood cell count, unspecified Thrombocytopenia Disposition: 01 HOME, SELF-CARE Condition: Improved Departure-Patient Inst. Decision time for Depature: 11:15 Referrals: ABAD MURRAY MD (PCP/Family) Primary Care Physician Patient Instructions: NO INSTRUCTIONS GIVEN Add. Discharge Instructions: If your pain gets worse, you develop a fever or you have uncontrollable nausea and vomiting you should return for follow-up evaluation. Tomorrow morning please call your cancer Drs. clinic and advise them what happened. All discharge instructions reviewed with patient and/or family. Voiced understanding. Scripts Morphine Sulfate (Ms Contin) 15 Mg Tablet.er 15 MG PO BID PRN for PAIN-BREAKTHROUGH for 14 Days, #30 TAB 0 Refills Prov: ZEKE ARCHER 07/04/17 Copy Copies To 1: ALBA MOYA TITUS J July 04, 2017 09:49
[2017-07-04 10:36] LABS: BASOPHILS # (AUTO) 0.1 10^3/uL (0.0-0.1); BASOPHILS % (AUTO) 0 % (0-10); EOSINOPHILS # (AUTO) 0.1 10^3/uL (0.0-0.3); EOSINOPHILS % (AUTO) 1 % (0-10); HEMATOCRIT 39 % (35-52); HEMOGLOBIN 13.4 G/DL (11.5-16.0); LYMPHOCYTES # (AUTO) 1.3 X 10^3 (1.0-4.0); LYMPHOCYTES % (AUTO) 7 % (12-44); MEAN CORPUSCULAR HEMOGLOBIN 32 PG (25-34); MEAN CORPUSCULAR HGB CONC 34 G/DL (32-36); MEAN CORPUSCULAR VOLUME 93 FL (80-99); MEAN PLATELET VOLUME 11.1 FL (7.4-10.4); MONOCYTES # (AUTO) 1.2 X 10^3 (0.0-1.0); MONOCYTES % (AUTO) 7 % (0-12); NEUTROPHILS # (AUTO) 15.8 X 10^3 (1.8-7.8); NEUTROPHILS % (AUTO) 85 % (42-75); PLATELET COUNT 51 10^3/uL (130-400); RED BLOOD COUNT 4.23 10^6/uL (4.35-5.85); RED CELL DISTRIBUTION WIDTH 15.2 % (10.0-14.5); WHITE BLOOD COUNT 18.5 10^3/uL (4.3-11.0)
[2017-07-04 10:57] LABS: ALANINE AMINOTRANSFERASE 38 U/L (0-55); ALBUMIN 3.3 GM/DL (3.2-4.5); ALKALINE PHOSPHATASE 130 U/L (40-136); BILIRUBIN,TOTAL 0.2 MG/DL (0.1-1.0); BUN/CREATININE RATIO 8; CALCIUM 8.8 MG/DL (8.5-10.1); CARBON DIOXIDE 19 MMOL/L (21-32); CHLORIDE 105 MMOL/L (98-107); CREATININE SERUM 0.63 MG/DL (0.60-1.30); GFR ESTIMATED > 60; GLUCOSE 144 MG/DL (70-105); POTASSIUM 3.6 MMOL/L (3.6-5.0); SODIUM 137 MMOL/L (135-145); TOTAL PROTEIN 6.4 GM/DL (6.4-8.2)
[2017-07-04 11:05] LABS: BAND NEUTROPHILS 7 %; BASOPHILS % (MANUAL) 0 %; EOSINOPHILS % (MANUAL) 0 %; LYMPHOCYTES % (MANUAL) 5 %; MONOCYTES % (MANUAL) 7 %; NEUTROPHILS % (MANUAL) 81 %
[2017-07-04 11:06] LABS: RBC MORPH NORMAL
[2017-07-04] MEDS ORDERED: MORP15TA69 PO (11:18)
[2017-07-04 11:30] VITALS: BP 154/98
== END 2017-07-04 11:29 | disposition home or self-care (01) ==
LOC: EDUNIT# 09:00 → ER 09:02
DX: R10.31 Right lower quadrant pain (principal); D72.829 Elevated white blood cell count, unspecified; D69.6 Thrombocytopenia, unspecified; J45.909 Unspecified asthma, uncomplicated; E78.00 Pure hypercholesterolemia, unspecified; I10 Essential (primary) hypertension; K21.9 Gastro-esophageal reflux disease without esophagitis; M06.9 Rheumatoid arthritis, unspecified; F41.9 Anxiety disorder, unspecified; F31.9 Bipolar disorder, unspecified; F17.210 Nicotine dependence, cigarettes, uncomplicated; Z85.828 Personal history of other malignant neoplasm of skin; Z85.841 Personal history of malignant neoplasm of brain; Z79.52 Long term (current) use of systemic steroids; Z85.3 Personal history of malignant neoplasm of breast; Z90.89 Acquired absence of other organs; Z92.21 Personal history of antineoplastic chemotherapy; Z95.9 Presence of cardiac and vascular implant and graft, unspecified; Z87.59 Personal history of other complications of pregnancy, childbirth and the puerperium; Z90.13 Acquired absence of bilateral breasts and nipples
CPT/HCPCS: 36415; 80053; 85007; 85027; 96374

== ENCOUNTER 2017-07-09 16:59 | Emergency (ER) | payer MEDICARE, MEDICAID ==
[~2017-07-09] VITALS: Ht 165.1 cm; Wt 66.7 kg
[~2017-07-09 16:59] MED LIST changes: +MORP15TA69 PO
--- OUTSIDE RECORDS SUMMARY | 2017-07-09 17:06 | XMS REPORT ---
Author Author MARIO ELIAS [facility] Address [address] [place] [address] Care Team Providers Care Prescriptionist Name Role Phone MARIO ELIAS Unavailable PROBLEMS Type Condition ICD9-CM Code WPL70-OI Code Onset Dates Condition Status SNOMED Code Problem COPD (chronic obstructive pulmonary disease) J44.9 Active 92875658 Problem Benign essential hypertension I10 Active 7794712 Problem Arthritis of both hips M12.9 Active 21825247 Problem 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 Active 37831458 Problem Malignant neoplasm of unspecified site of right female breast C50.911 Active 002180629 Problem Tobacco abuse Z72.0 Active 406944174 Problem Neuropathy of right foot G57.91 Active 031356535 Problem Bipolar 1 disorder, depressed F31.9 Active 40006611 Problem Bipolar disorder, unspecified F31.9 Active 22837050 Problem Seasonal allergic rhinitis, unspecified allergic rhinitis trigger J30.2 Active 098842461 Problem Malignant neoplasm of right female breast, unspecified site of breast C50.911 Active 259426755 ALLERGIES Substance Reaction Event Type Date Status Lyrica Unknown Drug Allergy Nov, Active Haldol fever Drug Allergy Nov, Active Gabapentin Unknown Drug Allergy Nov, Active ENCOUNTERS Encounter Location Date Diagnosis [facility] [id number] [place] [phone] Jan, Rash R21 and Hordeolum externum of right lower eyelid H00.012 [facility] [address] [place] [id number] [place] [address] [phone]- [phone] Jan, [facility] [id number] [place] [phone] Nov, Acute non-recurrent frontal sinusitis J01.10 [facility] [id number] [place] [phone] [phone] Jul, [place] [id number] [place] [address] [phone]- 5351 Jul, [place] [address] [id number] [place] [address] [phone] Jul, Neuropathy of right foot G57.91 ; Tobacco abuse Z72.0 and Breast cancer, right C50.911 [facility] [address] [id number] May, [facility] [place] [id number] [place] [phone] May, Seasonal allergic rhinitis, unspecified allergic rhinitis trigger J30.2 [facility] [place] [id number] [place] [address] [phone] [address][phone] Apr, Acute bacterial conjunctivitis of right eye H10.[address] [address] Mar, Malignant neoplasm of right female breast, unspecified site of breast C50.911 ; Acute nasopharyngitis J00 and Bipolar 1 disorder, depressed F31.9 [facility] [place] [id number] [place] [phone] Mar, Subacute frontal sinusitis J01.10 and Cough R05 [facility] [place] [id number] [place] [phone] -[phone] 14 Mar, 2016 Acute non-recurrent maxillary sinusitis J01.00 [facility] [address] [place] [id number] [place] [address] [phone] 10 Mar, 2016 Seasonal allergic rhinitis, unspecified allergic rhinitis trigger J30.2 [place] [address] [id number] [place] [address] [phone]- [phone] 03 Mar, 2016 [place] [address] [id number] [place] [address] 72230- 6242 Feb, Bipolar disorder, unspecified F31.9 [facility] [address] [address] Feb, [facility] [address] [id number] [id number] Jan, [facility] [address] [id number] [id number] Oct, [facility] [address] [id number] [id number] Oct, [facility] [address] [id number] [id number] Feb, [facility] [address] [id number] [id number] Feb, Bipolar 1 disorder F31.9 ; COPD (chronic obstructive pulmonary disease) J44.9 ; Breast cancer, right C50.911 ; Tachycardia R00.0 and Benign essential hypertension I10 [facility] [id number] [place] [address] [phone]- [phone] Jan, Sebaceous cyst L72.3 [facility] [id number] [place] [address] 82112- [address]26 Jan, [facility] [id number] [place] [address] 77947- 7023 Jan, Malignant neoplasm of right female breast, unspecified site of breast C50.911 [facility] [id number] [place] [address] 65897- 4350 Jan, [facility] [id number] [place] [address] [phone]- [phone] Jan, [facility] [id number] [place] [address] 68109- 1307 Jan, Sebaceous cyst L72.3 [facility] [id number] [place] [address] 53574- [phone] Dec, [facility] [id number] [place] [address] 99914- [phone] Dec, Abnormal mammogram R92.8 and Breast mass N63 [place] [address] [address] Dec, Breast pain, right N64.4 [place] [address] [place] [id number] [place] [address] 76345- 4598 Dec, COPD (chronic obstructive pulmonary disease) J44.9 ; Weight gain R63.5 and Encounter for weight loss counseling Z71.3 [place] [address] [address]95- [address]73 Dec, [place] [address] [address]35[address] Nov, Sebaceous cyst L72.3 [place] [address] [id number] [place] [address] 34676- 2200 Oct, Skin lesion of right arm 709.9 and Localized swelling, mass , and lump of head 784.2 [place] [address] [id number] [place] [address] 23642- [phone] Oct, [place] [address] 8[address]31- [address] Oct, [place] [address] [id number] [place] [address] 94260- [phone] 18 Oct, 2014 Routine adult health maintenance V70.0 and Fatigue 780.79 [place] [address] [place] [id number] [place] [address] 14628- [phone] 16 Oct, 2014 Routine adult health maintenance V70.0 ; COPD (chronic obstructive pulmonary disease) 496 ; Arthritis of both hips 716.95 ; Fatigue 780.79 and Localized swelling, mass, and lump of head 784.2 [place] [address] [place] [id number] [place] [address] [phone]- [phone] Oct, [place] [address] [address] Sep, COPD (chronic obstructive pulmonary disease) 496 and Bipolar disorder 296.80 IMMUNIZATIONS No Known Immunizations SOCIAL HISTORY Never Assessed REASON FOR VISIT sinus pressure, sinus drainage, cough, bilateral earache. been sick for 5 days. kbullabran PLAN OF CARE Activity Details Follow Up prn Reason: VITAL SIGNS Height 65.5 in 2016-12-06 Weight 185.2 lbs 2016-12-06 Temperature 98.4 degrees Fahrenheit 2016-12-06 Heart Rate 86 bpm 2016-12-06 Respiratory Rate 20 2016-12-06 BMI 30.35 kg/m2 2016-12-06 Blood pressure systolic 114 mmHg 2016-12-06 Blood pressure diastolic 74 mmHg 2016-12-06 MEDICATIONS Medication Instructions Dosage Frequency Start Date End Date Duration Status Omeprazole 20 MG Orally Once a day 1 capsule 24h Active Lyrica 50 mg Orally 2 times a day 1 capsule 12h 12 Jul, 2016 28 days Not-Taking PredniSONE 10 mg Orally Once a day 6tabs first day and decrease by 1 tab daily 24h Not-Taking Abilify 15 MG Orally Once a day 1 tablet 24h Oct, Active Tessalon Perles 100 mg Orally Three times a day 1 capsule as needed 8h 30 Nov, 2016 Dec, 10 days Active Depakote 500 MG Orally at bedtime 4 tablet Active Hydrocortisone 1 % Externally Twice a day 1 application to affected area 12h Not-Taking Tramadol HCl 50 MG Orally every 6 hrs 1 tablet as needed 6h Not- Taking Prochlorperazine 10 mg Orally at bedtime 1 tablet Not-Taking Zofran ODT 8 MG Orally 3 times a day sravani needed 1 tablet on the tongue and allow to dissolve Not-Taking Iselin Saline Nasal Gel 1 Nasally 2 times a day apply small amount to each nare twice daily 12h 30 Nov, 2016 Jan, 10 days Active Augmentin 875-125 MG Orally every 12 hrs 1 tablet 12h 30 Nov, 2016 Dec, 10 day(s) Active RESULTS No Results PROCEDURES No [...] History surgeries Hospitalization History Fever of unknown origin-[facility] 05/24/16
--- OUTSIDE RECORDS SUMMARY | 2017-07-09 17:14 | XMS REPORT | Continuity of Care Document ---
Author Author [facility] Organization [facility] Address Unknown Phone Unavailable Allergies Active Description Code Type Severity Reaction Onset Reported/Identified Relationship to Patient Clinical Status Yes No Known Drug Allergies [id number] Drug Allergy Unknown N/A 09/27/2014 Medications There is no data. Problems Date Dx Coded Attending Type Code Diagnosis Diagnosed By 09/27/2014 KARLIE ZHU MD Ot 053.9 HERPES ZOSTER NOS 09/27/2014 KARLIE ZHU MD Ot V68.1 ISSUE REPEAT PRESCRIPT 10/11/2014 REGINALDO ANNA MD Ot 692.6 DERMATITIS DUE TO PLANT 10/11/2014 REGINALDO ANNA MD Ot 782.1 NONSPECIF SKIN ERUPT NEC 11/08/2014 DARÍO BURROWS DRAPERY EXAMINER Ot 784.2 11/08/2014 REGINALDO ANNA MD Ot F17.210 NICOTINE DEPENDENCE, CIGARETTES, UNCOMPL 11/08/2014 REGINALDO ANNA MD Ot J44.1 CHRONIC OBSTRUCTIVE PULMONARY DISEASE W 11/08/2014 REGINALDO ANNA MD Ot R06.02 SHORTNESS OF BREATH 11/08/2014 DARÍO BURROWS DRAPERY EXAMINER Ot 784.2 11/19/2014 DARÍO BURROWS DRAPERY EXAMINER Ot 784.2 11/21/2014 KAYLA MELENDEZ APRN Ot [...] REGINALDO Pryor Ot R05 COUGH 12/19/2014 WILFRIDO UMRRAY, REGINALDO Pryor Ot R50.9 FEVER, UNSPECIFIED 12/25/2014 KAYLA MELENDEZ DRAPERY EXAMINER Ot F17.210 NICOTINE DEPENDENCE, CIGARETTES, UNCOMPL 12/25/2014 KAYLA MELENDEZ DRAPERY EXAMINER Ot N64.9 DISORDER OF BREAST, UNSPECIFIED 01/09/2015 DARÍO BURROWS DRAPERY EXAMINER Ot N64.4 01/09/2015 DARÍO BURROWS DRAPERY EXAMINER Ot N64.4 01/10/2015 STORMY DARÍO You DRAPERY EXAMINER Ot N64.4 01/10/2015 ROB BURROWSYARELY You DRAPERY EXAMINER Ot N63 01/10/2015 STORMY DARÍO You DRAPERY EXAMINER Ot R92.8 01/14/2015 STORMY DARÍO You DRAPERY EXAMINER Ot N64.4 01/14/2015 STORMY DARÍO You DRAPERY EXAMINER Ot N63 01/14/2015 STORMY DARÍO You DRAPERY EXAMINER Ot R92.8 01/17/2015 STORMY DARÍO You DRAPERY EXAMINER Ot N64.4 01/17/2015 STORMY DARÍO You DRAPERY EXAMINER Ot N63 01/17/2015 STORMY DARÍO You DRAPERY EXAMINER Ot R92.8 01/17/2015 MARIA LUZ MURRAY, CAM [...] You (DDU) Ot Z02.71 01/22/2015 DARÍO BURROWS DRAPERY EXAMINER Ot N64.4 01/22/2015 DARÍO BURROWS DRAPERY EXAMINER Ot N63 01/22/2015 DARÍO BURROWS DRAPERY EXAMINER Ot R92.8 01/22/2015 GAMALIEL MURRAY, CEE K [...] MD (DDU) Ot Z02.71 01/24/2015 DARÍO BURROWS DRAPERY EXAMINER Ot N64.4 01/24/2015 DARÍO BURROWS DRAPERY EXAMINER Ot N63 01/24/2015 DARÍO BURROWS DRAPERY EXAMINER Ot R92.8 01/24/2015 GAMALIEL MURRAY, CEE K [...] K Ot R92.8 01/24/2015 KITTY SANDRA S ENGINEERING MANAGER ELECTRONICS Ot C50.511 01/24/2015 KITTY SANDRA S ENGINEERING MANAGER ELECTRONICS Ot E66.9 01/24/2015 KITTY SANDRA S ENGINEERING MANAGER ELECTRONICS Ot E78.5 01/24/2015 KARIN TANGAH S ENGINEERING MANAGER ELECTRONICS Ot F17.210 01/24/2015 KITTY SANDRA S ENGINEERING MANAGER ELECTRONICS Ot F31.9 01/24/2015 KARIN TANGSINGH S ENGINEERING MANAGER ELECTRONICS Ot I10 01/24/2015 KARIN TANGSINGH S ENGINEERING MANAGER ELECTRONICS Ot J44.9 01/24/2015 KITTY SANDRA S ENGINEERING MANAGER ELECTRONICS Ot Z17.1 01/24/2015 KITTY SANDRA S ENGINEERING MANAGER ELECTRONICS Ot Z68.35 01/24/2015 KITTY SANDRA S ENGINEERING MANAGER ELECTRONICS Ot Z79.899 01/24/2015 GAMALIEL MURRAY, CEE Pryor Ot R92.8 01/24/2015 KITTY SANDRA S ENGINEERING MANAGER ELECTRONICS Ot C50.511 01/24/2015 KARIN TANGSINGH S ENGINEERING MANAGER ELECTRONICS Ot E66.9 01/24/2015 KARIN TANGSINGH S ENGINEERING MANAGER ELECTRONICS Ot E78.5 01/24/2015 KITTY SANDRA S ENGINEERING MANAGER ELECTRONICS Ot F17.210 01/24/2015 KITTY SANDRA S ENGINEERING MANAGER ELECTRONICS Ot F31.9 01/24/2015 KITTY SANDRA S ENGINEERING MANAGER ELECTRONICS Ot I10 01/24/2015 KARIN TANGSINGH S ENGINEERING MANAGER ELECTRONICS Ot J44.9 01/24/2015 KARIN TANGSINGH S ENGINEERING MANAGER ELECTRONICS Ot Z17.1 01/24/2015 KARIN TANGSINGH S ENGINEERING MANAGER ELECTRONICS Ot Z68.35 01/24/2015 KARIN TANGSINGH S ENGINEERING MANAGER ELECTRONICS Ot Z79.899 01/24/2015 GAMALIEL MURRAY, CEE K [...] CEE Pryor Ot Z79.899 01/24/2015 DARÍO BURROWS DRAPERY EXAMINER Ot N63 01/24/2015 DARÍO BURROWS DRAPERY EXAMINER Ot R92.8 01/24/2015 DARÍO BURROWS DRAPERY EXAMINER Ot N64.4 01/24/2015 SHERRY ROGEL MD (DDU) Ot Z02.71 01/24/2015 DARÍO BURROWS DRAPERY EXAMINER Ot N64.4 01/24/2015 DARÍO BURROWS DRAPERY EXAMINER Ot N63 01/24/2015 DARÍO BURROWS DRAPERY EXAMINER Ot R92.8 01/24/2015 GAMALIEL MURRAY, CEE Konstantin [...] SANDRA TANG Ot C50.511 01/24/2015 SANDRA TANG ENGINEERING MANAGER ELECTRONICS Ot E66.9 01/24/2015 SANDRA TANG ENGINEERING MANAGER ELECTRONICS Ot E78.5 01/24/2015 SANDRA TANG ENGINEERING MANAGER ELECTRONICS Ot F17.210 01/24/2015 SANDRA TANG ENGINEERING MANAGER ELECTRONICS Ot F31.9 01/24/2015 SANDRA TANG ENGINEERING MANAGER ELECTRONICS Ot I10 01/24/2015 SANDRA TANG ENGINEERING MANAGER ELECTRONICS Ot J44.9 01/24/2015 SANDRA TANG S ENGINEERING MANAGER ELECTRONICS Ot Z17.1 01/24/2015 SANDRA TANG S ENGINEERING MANAGER ELECTRONICS Ot Z68.35 01/24/2015 SANDRA TANG ENGINEERING MANAGER ELECTRONICS Ot Z79.899 02/13/2015 GAMALIEL MURRAY, CEE Pryor Ot C50.511 02/13/2015 GAMALIEL MURRAY, CEE Pryor Ot Z51.81 02/13/2015 GAMALIEL MURRAY, CEE Pryor Ot Z79.899 02/13/2015 GAMALIEL MURRAY, CEE Pryor Ot C50.511 02/13/2015 GAMALIEL MURRAY, CEE Pryor Ot Z51.81 02/13/2015 GAMALIEL MURRAY, CEE Pryor Ot Z79.899 02/17/2015 PEBBLES MURRAY, SHERRY You (DDU) Ot Z02.71 02/17/2015 DARÍO BURROWS DRAPERY EXAMINER Ot N64.4 02/17/2015 DARÍO BURROWS DRAPERY EXAMINER Ot N63 02/17/2015 DARÍO BURROWS DRAPERY EXAMINER Ot R92.8 02/17/2015 GAMALIEL MURRAY, CEE Pryor [...] MURRAY, CEE Pryor Ot R92.8 02/17/2015 TANGSANDRA ENGINEERING MANAGER ELECTRONICS Ot C50.511 02/17/2015 TANG, SANDRA S ENGINEERING MANAGER ELECTRONICS Ot E66.9 02/17/2015 TANG, HILAH S ENGINEERING MANAGER ELECTRONICS Ot E78.5 02/17/2015 TANG, HILAH S ENGINEERING MANAGER ELECTRONICS Ot F17.210 02/17/2015 TANG, HILAH S ENGINEERING MANAGER ELECTRONICS Ot F31.9 02/17/2015 TANG, HILAH S ENGINEERING MANAGER ELECTRONICS Ot I10 02/17/2015 TANG, HILAH S ENGINEERING MANAGER ELECTRONICS Ot J44.9 02/17/2015 TANG, HILAH S ENGINEERING MANAGER ELECTRONICS Ot Z17.1 02/17/2015 KITTY SANDRA S ENGINEERING MANAGER ELECTRONICS Ot Z68.35 02/17/2015 KITTYSANDRA S ENGINEERING MANAGER ELECTRONICS Ot Z79.899 02/17/2015 GAMALIEL MURRAY, CEE Pryor [...] You (DDU) Ot Z02.71 03/17/2015 DARÍO BURROWS DRAPERY EXAMINER Ot N64.4 03/17/2015 DARÍO BURROWS DRAPERY EXAMINER Ot N63 03/17/2015 DARÍO BURROWS DRAPERY EXAMINER Ot R92.8 03/17/2015 GAMALIEL MURRAY, CEE Pryor [...] CEE Pryor Ot R92.8 03/17/2015 SANDRA TANG ENGINEERING MANAGER ELECTRONICS Ot C50.511 03/17/2015 SANDRA TANG S ENGINEERING MANAGER ELECTRONICS Ot E66.9 03/17/2015 SANDRA TANG S ENGINEERING MANAGER ELECTRONICS Ot E78.5 03/17/2015 KARIN TANGSINGH S ENGINEERING MANAGER ELECTRONICS Ot F17.210 03/17/2015 SANDRA TANG S ENGINEERING MANAGER ELECTRONICS Ot F31.9 03/17/2015 SANDRA TANG S ENGINEERING MANAGER ELECTRONICS Ot I10 03/17/2015 SANDRA TANG S ENGINEERING MANAGER ELECTRONICS Ot J44.9 03/17/2015 SANDRA TANG S ENGINEERING MANAGER ELECTRONICS Ot Z17.1 03/17/2015 SANDRA TANG S ENGINEERING MANAGER ELECTRONICS Ot Z68.35 03/17/2015 SANDRA TANG S ENGINEERING MANAGER ELECTRONICS Ot Z79.899 03/17/2015 GAMALIEL MURRAY, CEE Pryor [...] You (DDU) Ot Z02.71 03/20/2015 DARÍO BURROWS DRAPERY EXAMINER Ot N64.4 03/20/2015 DARÍO BURROWS DRAPERY EXAMINER Ot N63 03/20/2015 DARÍO BURROWS DRAPERY EXAMINER Ot R92.8 03/20/2015 GAMALIEL MURRAY, CEE K [...] CEE K Ot R92.8 03/20/2015 SANDRA TANG ENGINEERING MANAGER ELECTRONICS Ot C50.511 03/20/2015 SANDRA TANG ENGINEERING MANAGER ELECTRONICS Ot E66.9 03/20/2015 SANDRA TANG ENGINEERING MANAGER ELECTRONICS Ot E78.5 03/20/2015 SANDRA TANG ENGINEERING MANAGER ELECTRONICS Ot F17.210 03/20/2015 SANDRA TANG ENGINEERING MANAGER ELECTRONICS Ot F31.9 03/20/2015 SANDRA TANG ENGINEERING MANAGER ELECTRONICS Ot I10 03/20/2015 SANDRA TANG ENGINEERING MANAGER ELECTRONICS Ot J44.9 03/20/2015 SANDRA TANG ENGINEERING MANAGER ELECTRONICS Ot Z17.1 03/20/2015 TANG, HILAH S ENGINEERING MANAGER ELECTRONICS Ot Z68.35 03/20/2015 KITTY KARINAH S ENGINEERING MANAGER ELECTRONICS Ot Z79.899 03/20/2015 GAMALIEL MURRAY, CEE K Ot C50.511 03/20/2015 GAMALIEL MURRAY, CEE K Ot Z51.81 03/20/2015 GAMALIEL MURRAY, CEE Pryor Ot Z79.899 03/20/2015 GAMALIEL MURRAY, CEE K Ot C50.511 03/20/2015 MARIA LUZ MURRAY, CAM M Ot C50.911 03/20/2015 MARIA LUZ MURRAY, CAM M Ot Z01.818 03/20/2015 GAMALIEL MURRAY, CEE K Ot C50.511 03/20/2015 KITTY HILAH S ENGINEERING MANAGER ELECTRONICS Ot C50.511 03/20/2015 KARIN TANGAH S ENGINEERING MANAGER ELECTRONICS Ot E66.9 03/20/2015 KITTY HILAH S ENGINEERING MANAGER ELECTRONICS Ot E78.5 03/20/2015 KARIN TANGAH S ENGINEERING MANAGER ELECTRONICS Ot F17.210 03/20/2015 KARIN TANGAH S ENGINEERING MANAGER ELECTRONICS Ot F31.9 03/20/2015 SANDRA TANG S ENGINEERING MANAGER ELECTRONICS Ot I10 03/20/2015 SANDRA TANG S ENGINEERING MANAGER ELECTRONICS Ot J44.9 03/20/2015 SANDRA TANG S ENGINEERING MANAGER ELECTRONICS Ot Z17.1 03/20/2015 KARIN TANGAH S ENGINEERING MANAGER ELECTRONICS Ot Z68.35 03/20/2015 KITTY KARINAH S ENGINEERING MANAGER ELECTRONICS Ot Z79.899 03/20/2015 GAMALIEL MURRAY, CEE K Ot C50.511 03/20/2015 GAMALIEL MURRAY, CEE Pryor Ot Z51.81 03/20/2015 GAMALIEL MURRAY, CEE K Ot Z79.899 03/20/2015 KITTY SANDRA S ENGINEERING MANAGER ELECTRONICS Ot C50.511 03/20/2015 KARIN TANGAH S ENGINEERING MANAGER ELECTRONICS Ot E66.9 03/20/2015 SANDRA TANG S ENGINEERING MANAGER ELECTRONICS Ot E78.5 03/20/2015 KITTY HILAH S ENGINEERING MANAGER ELECTRONICS Ot F17.210 03/20/2015 KITTY HILAH S ENGINEERING MANAGER ELECTRONICS Ot F31.9 03/20/2015 KARIN TANGAH S ENGINEERING MANAGER ELECTRONICS Ot I10 03/20/2015 SANDAR TANG S ENGINEERING MANAGER ELECTRONICS Ot J44.9 03/20/2015 SANDRA TANG S ENGINEERING MANAGER ELECTRONICS Ot Z17.1 03/20/2015 KITTYSANDRA ENGINEERING MANAGER ELECTRONICS Ot Z68.35 03/20/2015 KITTY SANDRA Lazar ENGINEERING MANAGER ELECTRONICS Ot Z79.899 03/20/2015 GAMALIEL MURRAY, CEE Konstantin Ot R92.8 03/20/2015 GAMALIEL MURRAY, CEE Konstantin Ot C50.411 03/20/2015 GAMALIEL MURRAY, CEE Konstantin Ot E66.9 03/20/2015 GAMALIEL MURRAY, CEE Pryor Ot E78.5 03/20/2015 GAMALIEL MURRAY, CEE Konstantin Ot F17.210 03/20/2015 GAMALIEL MURRAY, CEE K Ot F31.9 03/20/2015 GAMALIEL MURRAY, CEE Pryor Ot I10 03/20/2015 GAMALIEL MURRAY, CEE Pryor Ot J44.9 03/20/2015 GAMALIEL MURARY, CEE K Ot Z17.0 03/20/2015 GAMALIEL MURRAY, CEE Konstantin Ot Z68.34 03/20/2015 GAAMLIEL MURRAY, CEE Konstantin Ot Z79.899 03/20/2015 GAMALIEL [...] CEE Konstantin Ot Z79.899 03/20/2015 DARÍO BURROWS DRAPERY EXAMINER Ot N63 03/20/2015 DARÍO BURROWS DRAPERY EXAMINER Ot R92.8 03/20/2015 GAMALIEL MURRAY, CEE Pryor [...] Pryor Ot Z79.899 03/20/2015 BURROWS, DARÍO You DRAPERY EXAMINER Ot N63 03/20/2015 BURROWS, DARÍO You DRAPERY EXAMINER Ot R92.8 03/20/2015 BURROWS, DARÍO You DRAPERY EXAMINER Ot N64.4 03/20/2015 BURROWS, DARÍO A DRAPERY EXAMINER Ot 784.2 03/25/2015 GAMALIEL MURRAY, CEE Konstantin Ot C50.511 03/25/2015 GAMALIEL MURRAY, CEE Konstantin Ot C50.511 03/25/2015 GAMALIEL MURRAY, CEE Pryor Ot Z51.81 03/25/2015 GAMALIEL MURRAY, CEE Konstantin Ot Z79.899 03/25/2015 GAMALIEL MURRAY, CEE Konstantin Ot C50.511 03/25/2015 GAMALIEL MURRAY, CEE Konstantin Ot C50.411 03/25/2015 GAMALIEL MURRAY, CEE Pryor Ot Z51.81 03/25/2015 GAMALIEL MURRAY, CEE Pryor Ot Z79.899 03/25/2015 BURROWS, DARÍO You DRAPERY EXAMINER Ot N63 03/25/2015 BURROWS, DARÍO A DRAPERY EXAMINER Ot R92.8 03/25/2015 BURROWS, DARÍO A DRAPERY EXAMINER Ot 784.2 03/31/2015 BURROWS, DARÍO A DRAPERY EXAMINER Ot 784.2 03/31/2015 PEBBLES MURRAY, SHERRY You (DDU) Ot Z02.71 03/31/2015 BURROWS, DARÍO A DRAPERY EXAMINER Ot N64.4 03/31/2015 BURROWS, DARÍO A DRAPERY EXAMINER Ot N63 03/31/2015 BURROWS, DARÍO A DRAPERY EXAMINER Ot R92.8 03/31/2015 GAMALIEL MURRAY, CEE Pryor [...] Pryor Ot R92.8 03/31/2015 KITTY SANDRA S ENGINEERING MANAGER ELECTRONICS Ot C50.511 03/31/2015 KITTY HILAH S ENGINEERING MANAGER ELECTRONICS Ot E66.9 03/31/2015 KITTY HILAH S ENGINEERING MANAGER ELECTRONICS Ot E78.5 03/31/2015 KITTY KARINAH S ENGINEERING MANAGER ELECTRONICS Ot F17.210 03/31/2015 KITTY KARINAH S ENGINEERING MANAGER ELECTRONICS Ot F31.9 03/31/2015 KITTY SANDRA S ENGINEERING MANAGER ELECTRONICS Ot I10 03/31/2015 KITTY SANDRA S ENGINEERING MANAGER ELECTRONICS Ot J44.9 03/31/2015 KITTY SANDRA S ENGINEERING MANAGER ELECTRONICS Ot Z17.1 03/31/2015 KITTY SANDRA S ENGINEERING MANAGER ELECTRONICS Ot Z68.35 03/31/2015 KITTY KARINAH S ENGINEERING MANAGER ELECTRONICS Ot Z79.899 03/31/2015 GAMALIEL MURRAY, CEE Pryor Ot C50.511 03/31/2015 GAMALIEL MURRAY, CEE Pryor Ot Z51.81 03/31/2015 GAMALIEL MURRAY, CEE Pryor Ot Z79.899 03/31/2015 GAMALIEL MURRAY, CEE Pryor Ot C50.511 03/31/2015 MARIA LUZ MURRAY, CAM Jara Ot C50.911 03/31/2015 MARIA LUZ MURRAY, CAM M Ot Z01.818 04/04/2015 DARÍO BURROWS DRAPERY EXAMINER Ot 784.2 04/04/2015 DARÍO BURROWS DRAPERY EXAMINER Ot N64.4 04/04/2015 DARÍO BURROWS DRAPERY EXAMINER Ot N63 04/04/2015 DARÍO BURROWS DRAPERY EXAMINER Ot R92.8 04/04/2015 GAMALIEL MURRYA, CEE Pryor Ot C50.511 04/04/2015 GAMALIEL MURRAY, CEE K Ot R92.8 04/04/2015 TANGSANDRA Lazar ENGINEERING MANAGER ELECTRONICS Ot C50.511 04/04/2015 SANDRA TANG ENGINEERING MANAGER ELECTRONICS Ot E66.9 04/04/2015 SANDRA TANG S ENGINEERING MANAGER ELECTRONICS Ot E78.5 04/04/2015 SANDRA TANG S ENGINEERING MANAGER ELECTRONICS Ot F17.210 04/04/2015 SANDRA TANG S ENGINEERING MANAGER ELECTRONICS Ot F31.9 04/04/2015 SANDRA TANG S ENGINEERING MANAGER ELECTRONICS Ot I10 04/04/2015 SANDRA TANG S ENGINEERING MANAGER ELECTRONICS Ot J44.9 04/04/2015 SANDRA TANG S ENGINEERING MANAGER ELECTRONICS Ot Z17.1 04/04/2015 TANGSANDRA Lazar S ENGINEERING MANAGER ELECTRONICS Ot Z68.35 04/04/2015 TANGSANDRA Lazar ENGINEERING MANAGER ELECTRONICS Ot Z79.899 04/04/2015 GAMALIEL MURRAY, CEE Konstantin Ot C50.511 04/04/2015 GAMALIEL MURRAY, CEE Konstantin Ot Z51.81 04/04/2015 GAMALIEL MURRAY, CEE K Ot Z79.899 04/04/2015 GAMALIEL MURRAY, CEE Pryor Ot C50.511 04/07/2015 DARÍO BURROWS DRAPERY EXAMINER Ot 784.2 04/07/2015 PEBBLES MURRAY, SHERRY You (DDU) Ot Z02.71 04/07/2015 DARÍO BURROWS DRAPERY EXAMINER Ot N64.4 04/07/2015 DARÍO BURROWS DRAPERY EXAMINER Ot N63 04/07/2015 DARÍO BURROWS DRAPERY EXAMINER Ot R92.8 04/07/2015 GAMALIEL MURRAY, CEE Konstantin [...] Pryor Ot R92.8 04/07/2015 KITTY SANDRA S ENGINEERING MANAGER ELECTRONICS Ot C50.511 04/07/2015 KARIN TANGSINGH S ENGINEERING MANAGER ELECTRONICS Ot E66.9 04/07/2015 KITTY SANDRA S ENGINEERING MANAGER ELECTRONICS Ot E78.5 04/07/2015 KITTY SANDRA S ENGINEERING MANAGER ELECTRONICS Ot F17.210 04/07/2015 KITTY SANDRA S ENGINEERING MANAGER ELECTRONICS Ot F31.9 04/07/2015 KITTY SANDRA S ENGINEERING MANAGER ELECTRONICS Ot I10 04/07/2015 KITTY SANDRA S ENGINEERING MANAGER ELECTRONICS Ot J44.9 04/07/2015 KITTY SANDRA S ENGINEERING MANAGER ELECTRONICS Ot Z17.1 04/07/2015 KITTY SANDRA S ENGINEERING MANAGER ELECTRONICS Ot Z68.35 04/07/2015 KITTY SANDRA S ENGINEERING MANAGER ELECTRONICS Ot Z79.899 04/07/2015 GAMALIEL MURRAY, CEE Pryor [...] GAMALIEL MURRAY, CEE Pryor Ot Z79.899 OTHER INTERMEDIATE (CURRENT) DRUG THERAPY 04/21/2015 GAMALIEL MURRAY, CEE [...] SANDRA TANG Ot C50.511 04/29/2015 SANDRA TANG ENGINEERING MANAGER ELECTRONICS Ot Z79.899 04/30/2015 GAMALIEL MURRAY, CEE Pryor [...] CEE Pryor Ot Z51.81 06/17/2015 DARÍO BURROWS DRAPERY EXAMINER Ot 784.2 SWELLING IN HEAD NECK 06/17/2015 SHERRY ROGEL MD (DDU) Ot Z02.71 ENCOUNTER FOR DISABILITY DETERMINATION 06/17/2015 DARÍO BURROWS DRAPERY EXAMINER Ot N64.4 MASTODYNIA 06/17/2015 DARÍO BURROWS DRAPERY EXAMINER Ot N63 UNSPECIFIED LUMP IN BREAST 06/17/2015 DARÍO BURROWS APRN Ot R92.8 OTH ABN AND INCONCLUSIVE FINDINGS ON DX 06/17/2015 GAMALIEL MURRAY, CEE Pryor Ot C50.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 06/17/2015 GAMALIEL MURRAY, CEE Pryor Ot Z51.81 ENCOUNTER FOR THERAPEUTIC DRUG LEVEL MON 06/17/2015 CEE ALSTON MD Ot Z79.899 OTHER INTERMEDIATE (CURRENT) DRUG THERAPY 06/17/2015 CEE ALSTON MD Ot 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 06/17/2015 CEE ALSTON MD Ot R92.8 OTH ABN AND INCONCLUSIVE FINDINGS ON DX 06/17/2015 SANDRA TANG Cady ENGINEERING MANAGER ELECTRONICS Ot 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 06/17/2015 SANDRA TANG S ENGINEERING MANAGER ELECTRONICS Ot E66.9 OBESITY, UNSPECIFIED 06/17/2015 SANDRA TANG S ENGINEERING MANAGER ELECTRONICS Ot E78.5 HYPERLIPIDEMIA, UNSPECIFIED 06/17/2015 KARIN TANGSINGH S ENGINEERING MANAGER ELECTRONICS Ot F17.210 NICOTINE DEPENDENCE, CIGARETTES, UNCOMPL 06/17/2015 SANDRA TANG S ENGINEERING MANAGER ELECTRONICS Ot F31.9 BIPOLAR DISORDER, UNSPECIFIED 06/17/2015 KARIN TANGSINGH S ENGINEERING MANAGER ELECTRONICS Ot I10 ESSENTIAL (PRIMARY) HYPERTENSION 06/17/2015 SANDRA TANG S ENGINEERING MANAGER ELECTRONICS Ot J44.9 CHRONIC OBSTRUCTIVE PULMONARY DISEASE, U 06/17/2015 SANDRA TANG S ENGINEERING MANAGER ELECTRONICS Ot Z17.1 ESTROGEN RECEPTOR NEGATIVE STATUS [ER-] 06/17/2015 SANDRA TANG S ENGINEERING MANAGER ELECTRONICS Ot Z68.35 BODY MASS INDEX (BMI) 35.0-35.9, ADULT 06/17/2015 SANDRA TANG S ENGINEERING MANAGER ELECTRONICS Ot Z79.899 OTHER GENERAL CLEANER (CURRENT) DRUG THERAPY 06/17/2015 CEE ALSTON MD Ot 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 06/17/2015 CEE ALSTON MD Ot Z51.81 ENCOUNTER FOR THERAPEUTIC DRUG LEVEL MON 06/17/2015 CEE ALSTON MD Ot Z79.899 OTHER INTERMEDIATE (CURRENT) DRUG THERAPY 06/17/2015 CEE ALSTON MD [...] 06/17/2015 CEE ALSTON MD Ot Z79.899 OTHER GENERAL CLEANER (CURRENT) DRUG THERAPY 06/17/2015 SANDRA TANG Ot 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 06/17/2015 SANDRA TANG Ot Z79.899 OTHER GENERAL CLEANER (CURRENT) DRUG THERAPY 06/17/2015 CEE ALSTON MD [...] 06/17/2015 CEE ALSTON MD Ot Z79.899 OTHER INTERMEDIATE (CURRENT) DRUG THERAPY 06/17/2015 CEE ALSTON MD [...] 07/30/2015 CEE ALSTON MD, Ot Z79.899 OTHER GENERAL CLEANER (CURRENT) DRUG THERAPY 07/31/2015 CEE ALSTON MD, [...] 07/31/2015 CEE ALSTON MD, Ot Z79.899 OTHER GENERAL CLEANER (CURRENT) DRUG THERAPY 08/05/2015 CEE ALSTON MD, [...] 08/05/2015 CEE ALSTON MD Ot Z79.899 OTHER INTERMEDIATE (CURRENT) DRUG THERAPY 01/01/2016 CEE ALSTON MD [...] 01/01/2016 CEE ALSTON MD Ot Z79.899 OTHER GENERAL CLEANER (CURRENT) DRUG THERAPY 02/16/2016 DARÍO BURROWS DRAPERY EXAMINER Ot 784.2 SWELLING IN HEAD NECK 02/16/2016 SHERRY ROGEL MD (DDU) Ot Z02.71 ENCOUNTER FOR DISABILITY DETERMINATION 02/16/2016 DARÍO BURROWS DRAPERY EXAMINER Ot N64.4 MASTODYNIA 02/16/2016 DARÍO BURROWS DRAPERY EXAMINER Ot N63 UNSPECIFIED LUMP IN BREAST 02/16/2016 DARÍO BURROWS APRN Ot R92.8 OTH ABN AND INCONCLUSIVE FINDINGS ON DX 02/16/2016 CEE ALSTON MD Ot C50.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 02/16/2016 CEE ALSTON MD Ot Z51.81 ENCOUNTER FOR THERAPEUTIC DRUG LEVEL MON 02/16/2016 CEE ALSTON MD Ot Z79.899 OTHER GENERAL CLEANER (CURRENT) DRUG THERAPY 02/16/2016 CEE ALSTON MD Ot 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 02/16/2016 CEE ALSTON MD, Ot R92.8 OTH ABN AND INCONCLUSIVE FINDINGS ON DX 02/16/2016 SANDRA TANG ENGINEERING MANAGER ELECTRONICS Ot 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 02/16/2016 SNADRA TANG ENGINEERING MANAGER ELECTRONICS Ot E66.9 OBESITY, UNSPECIFIED 02/16/2016 SANDRA TANG S ENGINEERING MANAGER ELECTRONICS Ot E78.5 HYPERLIPIDEMIA, UNSPECIFIED 02/16/2016 SANDRA TANG ENGINEERING MANAGER ELECTRONICS Ot F17.210 NICOTINE DEPENDENCE, CIGARETTES, UNCOMPL 02/16/2016 SANDRA TANG ENGINEERING MANAGER ELECTRONICS Ot F31.9 BIPOLAR DISORDER, UNSPECIFIED 02/16/2016 SANDRA TANG S ENGINEERING MANAGER ELECTRONICS Ot I10 ESSENTIAL (PRIMARY) HYPERTENSION 02/16/2016 SANDRA TANG ENGINEERING MANAGER ELECTRONICS Ot J44.9 CHRONIC OBSTRUCTIVE PULMONARY DISEASE, U 02/16/2016 SANDRA TANG S ENGINEERING MANAGER ELECTRONICS Ot Z17.1 ESTROGEN RECEPTOR NEGATIVE STATUS [ER-] 02/16/2016 SANDRA TANG ENGINEERING MANAGER ELECTRONICS Ot Z68.35 BODY MASS INDEX (BMI) 35.0-35.9, ADULT 02/16/2016 SANDRA TANG ENGINEERING MANAGER ELECTRONICS Ot Z79.899 OTHER INTERMEDIATE (CURRENT) DRUG THERAPY 02/16/2016 CEE ALSTON MD Ot 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 02/16/2016 CEE ALSTON MD Ot Z51.81 ENCOUNTER FOR THERAPEUTIC DRUG LEVEL MON 02/16/2016 CEE ALSTON MD Ot Z79.899 OTHER GENERAL CLEANER (CURRENT) DRUG THERAPY 02/16/2016 ECE ALSTON MD [...] GAMALIEL MURRAY CEE Konstantin Ot Z79.899 OTHER INTERMEDIATE (CURRENT) DRUG THERAPY 02/16/2016 SANDRA TANG Ot 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 02/16/2016 SANDRA TANG Ot Z79.899 OTHER GENERAL CLEANER (CURRENT) DRUG THERAPY 02/16/2016 GAMALIEL MURRAY CEE [...] 02/16/2016 EULOGIO BRAGA MD, Ot Z79.899 OTHER GENERAL CLEANER (CURRENT) DRUG THERAPY 02/16/2016 DARÍO BURROWS APRN Ot 784.2 SWELLING IN HEAD NECK 02/16/2016 SHERRY ROGEL MD ([facility]) Ot Z02.71 ENCOUNTER FOR DISABILITY [...] 02/16/2016 CEE ALSTON MD Ot Z79.899 OTHER GENERAL CLEANER (CURRENT) DRUG THERAPY 02/16/2016 CEE ALSTON MD Ot 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 02/16/2016 CEE ALSTON MD Ot R92.8 OTH ABN AND INCONCLUSIVE FINDINGS ON DX 02/16/2016 SANDRA TANG ENGINEERING MANAGER ELECTRONICS Ot 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 02/16/2016 SANDRA TANG S ENGINEERING MANAGER ELECTRONICS Ot E66.9 OBESITY, UNSPECIFIED 02/16/2016 SANDRA TANG S ENGINEERING MANAGER ELECTRONICS Ot E78.5 HYPERLIPIDEMIA, UNSPECIFIED 02/16/2016 SANDRA TANG S ENGINEERING MANAGER ELECTRONICS Ot F17.210 NICOTINE DEPENDENCE, CIGARETTES, UNCOMPL 02/16/2016 SANDRA TANG S ENGINEERING MANAGER ELECTRONICS Ot F31.9 BIPOLAR DISORDER, UNSPECIFIED 02/16/2016 SANDRA TANG S ENGINEERING MANAGER ELECTRONICS Ot I10 ESSENTIAL (PRIMARY) HYPERTENSION 02/16/2016 SANDRA TANG ENGINEERING MANAGER ELECTRONICS Ot J44.9 CHRONIC OBSTRUCTIVE PULMONARY DISEASE, U 02/16/2016 SANDRA TANG S ENGINEERING MANAGER ELECTRONICS Ot Z17.1 ESTROGEN RECEPTOR NEGATIVE STATUS [ER-] 02/16/2016 SANDRA TANG S ENGINEERING MANAGER ELECTRONICS Ot Z68.35 BODY MASS INDEX (BMI) 35.0-35.9, ADULT 02/16/2016 SANDRA TANG S ENGINEERING MANAGER ELECTRONICS Ot Z79.899 OTHER GENERAL CLEANER (CURRENT) DRUG THERAPY 02/16/2016 CEE ALSTON MD Ot 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 02/16/2016 CEE ALSTON MD Ot Z51.81 ENCOUNTER FOR THERAPEUTIC DRUG LEVEL MON 02/16/2016 CEE ALSTON MD Ot Z79.899 OTHER GENERAL CLEANER (CURRENT) DRUG THERAPY 02/16/2016 CEE ALSTON MD [...] 02/16/2016 CEE ALSTON MD Ot Z79.899 OTHER GENERAL CLEANER (CURRENT) DRUG THERAPY 02/16/2016 SANDRA TANG Ot 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 02/16/2016 SANDRA TANG Ot Z79.899 OTHER INTERMEDIATE (CURRENT) DRUG THERAPY 02/16/2016 CEE ALSTON MD [...] 02/16/2016 EULOGIO BRAGA MD Ot Z79.899 OTHER GENERAL CLEANER (CURRENT) DRUG THERAPY 02/16/2016 EDIL QURESHI Ot F17.210 NICOTINE DEPENDENCE, CIGARETTES, UNCOMPL 02/16/2016 EDIL QURESHI Ot F41.9 ANXIETY DISORDER, UNSPECIFIED 02/16/2016 EDIL QURESHI Ot I10 ESSENTIAL (PRIMARY) HYPERTENSION 02/16/2016 EDIL QURESHI Ot Z95.9 PRESENCE OF CARDIAC AND VASCULAR IMPLANT 02/16/2016 DARÍO BURROWS APRN Ot 784.2 SWELLING IN HEAD NECK 02/16/2016 SHERRY ROGEL MD ([facility]) Ot Z02.71 ENCOUNTER FOR DISABILITY DETERMINATION 02/16/2016 DARÍO BURROWS DRAPERY EXAMINER Ot N64.4 MASTODYNIA 02/16/2016 DARÍO BURRWOS DRAPERY EXAMINER Ot N63 UNSPECIFIED LUMP IN BREAST 02/16/2016 DARÍO BURROWS APRN Ot R92.8 OTH ABN AND INCONCLUSIVE FINDINGS ON DX 02/16/2016 CEE ALSTON MD Ot C50.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 02/16/2016 CEE ALSTON MD Ot Z51.81 ENCOUNTER FOR THERAPEUTIC DRUG LEVEL MON 02/16/2016 CEE ALSTON MD Ot Z79.899 OTHER GENERAL CLEANER (CURRENT) DRUG THERAPY 02/16/2016 CEE ALSTON MD [...] ADULT 02/16/2016 SANDRA TANG Ot Z79.899 OTHER INTERMEDIATE (CURRENT) DRUG THERAPY 02/16/2016 CEE ALSTON MD Ot 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 02/16/2016 CEE ALSTON MD Ot Z51.81 ENCOUNTER FOR THERAPEUTIC DRUG LEVEL MON 02/16/2016 CEE ALSTON MD Ot Z79.899 OTHER GENERAL CLEANER (CURRENT) DRUG THERAPY 02/16/2016 CEE ALSTON MD [...] 02/16/2016 CEE ALSTON MD Ot Z79.899 OTHER GENERAL CLEANER (CURRENT) DRUG THERAPY 02/16/2016 SANDRA TANG Ot 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 02/16/2016 SANDRA TANG Ot Z79.899 OTHER INTERMEDIATE (CURRENT) DRUG THERAPY 02/16/2016 CEE ALSTON MD [...] 02/16/2016 EULOGIO BRAGA MD, Ot Z79.899 OTHER GENERAL CLEANER (CURRENT) DRUG THERAPY 02/17/2016 EDIL QURESHI Ot [...] 03/01/2016 CEE ALSTON MD Ot Z79.899 OTHER GENERAL CLEANER (CURRENT) DRUG THERAPY 03/01/2016 CEE ALSTON MD Ot 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 03/01/2016 CEE ALSTON MD Ot R92.8 OTH ABN AND INCONCLUSIVE FINDINGS ON DX 03/01/2016 SANDRA TANG Ot 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 03/01/2016 SANDRA TANG Ot E66.9 OBESITY, UNSPECIFIED 03/01/2016 SANDRA TANG ENGINEERING MANAGER ELECTRONICS Ot E78.5 HYPERLIPIDEMIA, UNSPECIFIED 03/01/2016 SANDRA TANG ENGINEERING MANAGER ELECTRONICS Ot F17.210 NICOTINE DEPENDENCE, CIGARETTES, UNCOMPL 03/01/2016 SANDRA TANG ENGINEERING MANAGER ELECTRONICS Ot F31.9 BIPOLAR DISORDER, UNSPECIFIED 03/01/2016 SANDRA TANG ENGINEERING MANAGER ELECTRONICS Ot I10 ESSENTIAL (PRIMARY) HYPERTENSION 03/01/2016 SANDRA TANGP Ot J44.9 CHRONIC OBSTRUCTIVE PULMONARY DISEASE, U 03/01/2016 SANDRA TANG ENGINEERING MANAGER ELECTRONICS Ot Z17.1 ESTROGEN RECEPTOR NEGATIVE STATUS [ER-] 03/01/2016 SANDRA TANG ENGINEERING MANAGER ELECTRONICS Ot Z68.35 BODY MASS INDEX (BMI) 35.0-35.9, ADULT 03/01/2016 SANDRA TANGP Ot Z79.899 OTHER INTERMEDIATE (CURRENT) DRUG THERAPY 03/01/2016 CEE ALSTON MD Ot 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 03/01/2016 CEE ALSTON MD Ot Z51.81 ENCOUNTER FOR THERAPEUTIC DRUG LEVEL MON 03/01/2016 CEE ALSTON MD Ot Z79.899 OTHER GENERAL CLEANER (CURRENT) DRUG THERAPY 03/01/2016 CEE ALSTON MD [...] 03/01/2016 CEE ALSTON MD Ot Z79.899 OTHER GENERAL CLEANER (CURRENT) DRUG THERAPY 03/01/2016 SANDRA TANG Ot 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 03/01/2016 SANDRA TANG Ot Z79.899 OTHER GENERAL CLEANER (CURRENT) DRUG THERAPY 03/01/2016 CEE ALSTON MD Ot 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 03/01/2016 CEE ALSTON MD Ot Z51.81 ENCOUNTER FOR THERAPEUTIC DRUG LEVEL MON 03/01/2016 DARÍO BURROWS DRAPERY EXAMINER Ot 784.2 SWELLING IN HEAD NECK 03/01/2016 SHERRY ROGEL MD ([facility]) Ot Z02.71 ENCOUNTER FOR DISABILITY DETERMINATION 03/01/2016 DARÍO BURROWS DRAPERY EXAMINER Ot N64.4 MASTODYNIA 03/01/2016 DARÍO BURROWS DRAPERY EXAMINER Ot N63 UNSPECIFIED LUMP IN BREAST 03/01/2016 DARÍO BURROWS DRAPERY EXAMINER Ot R92.8 OTH ABN AND INCONCLUSIVE FINDINGS ON DX 03/01/2016 CEE ALSTON MD Ot C50.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 03/01/2016 CEE ALSTON MD Ot Z51.81 ENCOUNTER FOR THERAPEUTIC DRUG LEVEL MON 03/01/2016 CEE ALSTON MD Ot Z79.899 OTHER GENERAL CLEANER (CURRENT) DRUG THERAPY 03/01/2016 CEE ALSTON MD [...] ADULT 03/01/2016 SANDRA TANG Ot Z79.899 OTHER INTERMEDIATE (CURRENT) DRUG THERAPY 03/01/2016 CEE ALSTON MD Ot 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 03/01/2016 CEE ALSTON MD Ot Z51.81 ENCOUNTER FOR THERAPEUTIC DRUG LEVEL MON 03/01/2016 CEE ALSTON MD Ot Z79.899 OTHER INTERMEDIATE (CURRENT) DRUG THERAPY 03/01/2016 CEE ALSTON MD [...] 03/01/2016 CEE ALSTON MD Ot Z79.899 OTHER GENERAL CLEANER (CURRENT) DRUG THERAPY 03/01/2016 SANDRA TANG Ot 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 03/01/2016 SANDRA TANG Ot Z79.899 OTHER GENERAL CLEANER (CURRENT) DRUG THERAPY 03/01/2016 CEE ALSTON MD [...] MON 03/02/2016 ADE FOWLER Ot Z79.899 OTHER GENERAL CLEANER (CURRENT) DRUG THERAPY 03/02/2016 ADE FOWLER Ot Z51.81 ENCOUNTER FOR THERAPEUTIC DRUG LEVEL MON 03/02/2016 ADE FOWLER Ot Z79.899 OTHER INTERMEDIATE (CURRENT) DRUG THERAPY 03/04/2016 ADE FOWLER Ot Z51.81 ENCOUNTER FOR THERAPEUTIC DRUG LEVEL MON 03/04/2016 ADE FOWLER Ot Z79.899 OTHER INTERMEDIATE (CURRENT) DRUG THERAPY 03/04/2016 KAYLA MELENDEZ APRN Ot C50.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 03/04/2016 KAYLA MELENDEZ APRN Ot F17.210 NICOTINE DEPENDENCE, CIGARETTES, UNCOMPL 03/04/2016 KAYLA MELENDEZ DRAPERY EXAMINER Ot I10 ESSENTIAL (PRIMARY) HYPERTENSION 03/04/2016 KAYLA MELENDEZ APRN Ot J44.9 CHRONIC OBSTRUCTIVE PULMONARY DISEASE, U 03/04/2016 KAYLA MELENDEZ APRN Ot N61.0 MASTITIS WITHOUT ABSCESS 03/04/2016 KAYLA MELENDEZ APRN Ot Z79.899 OTHER GENERAL CLEANER (CURRENT) DRUG THERAPY 03/04/2016 KAYLA MELENDEZ APRN [...] 03/05/2016 KAYLA MELENDEZ APRN Ot Z79.899 OTHER GENERAL CLEANER (CURRENT) DRUG THERAPY 03/05/2016 KAYLA MELENDEZ APRN Ot Z90.11 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 03/07/2016 ADE FOWLER Ot Z51.81 ENCOUNTER FOR THERAPEUTIC DRUG LEVEL MON 03/07/2016 ADE FOWLER Ot Z79.899 OTHER INTERMEDIATE (CURRENT) DRUG THERAPY 03/18/2016 ADE FOWLER Ot Z51.81 ENCOUNTER FOR THERAPEUTIC DRUG LEVEL MON 03/18/2016 ADE FOWLER Ot Z79.899 OTHER INTERMEDIATE (CURRENT) DRUG THERAPY 04/19/2016 DARÍO BURROWS DRAPERY EXAMINER Ot 784.2 SWELLING IN HEAD NECK 04/19/2016 SHERRY ROGEL MD ([facility]) Ot Z02.71 ENCOUNTER FOR DISABILITY DETERMINATION 04/19/2016 BURROWSDARÍO Avelino DRAPERY EXAMINER Ot N64.4 MASTODYNIA 04/19/2016 DARÍO BURROWS DRAPERY EXAMINER Ot N63 UNSPECIFIED LUMP IN BREAST 04/19/2016 ROB BURROWSFER Avelino DRAPERY EXAMINER Ot R92.8 OTH ABN AND INCONCLUSIVE FINDINGS ON DX 04/19/2016 CEE ALSTON MD Ot C50.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 04/19/2016 CEE ALSTON MD Ot Z51.81 ENCOUNTER FOR THERAPEUTIC DRUG LEVEL MON 04/19/2016 CEE ALSTON MD Ot Z79.899 OTHER INTERMEDIATE (CURRENT) DRUG THERAPY 04/19/2016 CEE ALSTON MD, Ot 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 04/19/2016 CEE ALSTON MD Ot R92.8 OTH ABN AND INCONCLUSIVE FINDINGS ON DX 04/19/2016 SANDRA TANGP Ot 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 04/19/2016 SANDRA TANG ENGINEERING MANAGER ELECTRONICS Ot E66.9 OBESITY, UNSPECIFIED 04/19/2016 SANDRA TANGP Ot E78.5 HYPERLIPIDEMIA, UNSPECIFIED 04/19/2016 SANDRA TANG ENGINEERING MANAGER ELECTRONICS Ot F17.210 NICOTINE DEPENDENCE, CIGARETTES, UNCOMPL 04/19/2016 SANDRA TANG ENGINEERING MANAGER ELECTRONICS Ot F31.9 BIPOLAR DISORDER, UNSPECIFIED 04/19/2016 SANDRA TANGP Ot I10 ESSENTIAL (PRIMARY) HYPERTENSION 04/19/2016 SANDRA TANGP Ot J44.9 CHRONIC OBSTRUCTIVE PULMONARY DISEASE, U 04/19/2016 SANDRA TANGP Ot Z17.1 ESTROGEN RECEPTOR NEGATIVE STATUS [ER-] 04/19/2016 SANDRA TANGP Ot Z68.35 BODY MASS INDEX (BMI) 35.0-35.9, ADULT 04/19/2016 SANDRA TANG ENGINEERING MANAGER ELECTRONICS Ot Z79.899 OTHER INTERMEDIATE (CURRENT) DRUG THERAPY 04/19/2016 CEE ALSTON MD Ot 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 04/19/2016 CEE ALSTON MD Ot Z51.81 ENCOUNTER FOR THERAPEUTIC DRUG LEVEL MON 04/19/2016 CEE ALSTON MD Ot Z79.899 OTHER GENERAL CLEANER (CURRENT) DRUG THERAPY 04/19/2016 CEE ALSTON MD [...] 04/19/2016 CEE ALSTON MD Ot Z79.899 OTHER INTERMEDIATE (CURRENT) DRUG THERAPY 04/19/2016 SANDRA TANG Ot 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 04/19/2016 SANDRA TANG Ot Z79.899 OTHER GENERAL CLEANER (CURRENT) DRUG THERAPY 04/19/2016 CEE ALSTON MD [...] 05/06/2016 OMI MURRAY, EULOGIO Ot Z79.899 OTHER INTERMEDIATE (CURRENT) DRUG THERAPY 05/06/2016 STORMY DARÍO A DRAPERY EXAMINER Ot 784.2 SWELLING IN HEAD NECK 05/06/2016 PEBBLES MURRAY, SHERRY You ([facility]) Ot Z02.71 ENCOUNTER FOR DISABILITY DETERMINATION 05/06/2016 DARÍO BURROWS DRAPERY EXAMINER Ot N64.4 MASTODYNIA 05/06/2016 DARÍO BURROWS DRAPERY EXAMINER Ot N63 UNSPECIFIED LUMP IN BREAST 05/06/2016 DARÍO BURROWS DRAPERY EXAMINER Ot R92.8 OTH ABN AND INCONCLUSIVE FINDINGS ON DX 05/06/2016 CEE ALSTON MD Ot C50.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 05/06/2016 CEE ALSTON MD Ot Z51.81 ENCOUNTER FOR THERAPEUTIC DRUG LEVEL MON 05/06/2016 CEE ALSTON MD Ot Z79.899 OTHER GENERAL CLEANER (CURRENT) DRUG THERAPY 05/06/2016 CEE ALSTON MD Ot 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 05/06/2016 CEE ALSTON MD Ot R92.8 OTH ABN AND INCONCLUSIVE FINDINGS ON DX 05/06/2016 SANDRA TANG Ot 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 05/06/2016 SANDRA TANG ENGINEERING MANAGER ELECTRONICS Ot E66.9 OBESITY, UNSPECIFIED 05/06/2016 SANDRA TANG ENGINEERING MANAGER ELECTRONICS Ot E78.5 HYPERLIPIDEMIA, UNSPECIFIED 05/06/2016 SANDRA TANG ENGINEERING MANAGER ELECTRONICS Ot F17.210 NICOTINE DEPENDENCE, CIGARETTES, UNCOMPL 05/06/2016 SANDRA TANG ENGINEERING MANAGER ELECTRONICS Ot F31.9 BIPOLAR DISORDER, UNSPECIFIED 05/06/2016 SANDRA TANG ENGINEERING MANAGER ELECTRONICS Ot I10 ESSENTIAL (PRIMARY) HYPERTENSION 05/06/2016 SANDRA TANGP Ot J44.9 CHRONIC OBSTRUCTIVE PULMONARY DISEASE, U 05/06/2016 SANDRA TANG ENGINEERING MANAGER ELECTRONICS Ot Z17.1 ESTROGEN RECEPTOR NEGATIVE STATUS [ER-] 05/06/2016 SANDRA TANG ENGINEERING MANAGER ELECTRONICS Ot Z68.35 BODY MASS INDEX (BMI) 35.0-35.9, ADULT 05/06/2016 SANDRA TANG ENGINEERING MANAGER ELECTRONICS Ot Z79.899 OTHER GENERAL CLEANER (CURRENT) DRUG THERAPY 05/06/2016 CEE ALSTON MD Ot 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 05/06/2016 CEE ALSTON MD Ot Z51.81 ENCOUNTER FOR THERAPEUTIC DRUG LEVEL MON 05/06/2016 CEE ALSTON MD Ot Z79.899 OTHER GENERAL CLEANER (CURRENT) DRUG THERAPY 05/06/2016 CEE ALSTON MD [...] 05/06/2016 CEE ALSTON MD Ot Z79.899 OTHER GENERAL CLEANER (CURRENT) DRUG THERAPY 05/06/2016 SANDRA TANG ENGINEERING MANAGER ELECTRONICS Ot 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 05/06/2016 SANDRA TANG Ot Z79.899 OTHER GENERAL CLEANER (CURRENT) DRUG THERAPY 05/06/2016 CEE ALSTON MD Ot 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 05/06/2016 CEE ALSTON MD Ot Z51.81 ENCOUNTER FOR THERAPEUTIC DRUG LEVEL MON 05/06/2016 EULOGIO BRAGA MD Ot C50.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 05/06/2016 EULOGIO BRAGA MD Ot E66.9 OBESITY, UNSPECIFIED 05/06/2016 EULOGIO BRAGA MD Ot E78.5 HYPERLIPIDEMIA, UNSPECIFIED 05/06/2016 EULOIGO BRAGA MD Ot F17.210 NICOTINE DEPENDENCE, CIGARETTES, [...] 05/06/2016 EULOGIO BRAGA MD, Ot Z79.899 OTHER GENERAL CLEANER (CURRENT) DRUG THERAPY 05/24/2016 ADE FOWLER Ot Z51.81 ENCOUNTER FOR THERAPEUTIC DRUG LEVEL MON 05/24/2016 ADE FOWLER Ot Z79.899 OTHER GENERAL CLEANER (CURRENT) DRUG THERAPY 05/25/2016 EULOGIO BRAGA MD, [...] 05/25/2016 EULOGIO BRAGA MD, Ot Z79.899 OTHER INTERMEDIATE (CURRENT) DRUG THERAPY 05/25/2016 ABAD MURRAY MD, [...] LEVEL MON 05/26/2016 JANETHADE Ot Z79.899 OTHER INTERMEDIATE (CURRENT) DRUG THERAPY 05/26/2016 KARLIE ZHU MD [...] 05/26/2016 KARLIE ZHU MD Ot Z79.899 OTHER INTERMEDIATE (CURRENT) DRUG THERAPY 05/26/2016 KARLIE ZHU MD [...] 05/27/2016 KARLIE ZHU MD Ot Z79.899 OTHER INTERMEDIATE (CURRENT) DRUG THERAPY 05/27/2016 KARLIE ZHU MD [...] 06/28/2016 YANG ELKINS MD Ot Z79.899 OTHER INTERMEDIATE (CURRENT) DRUG THERAPY 06/28/2016 YANG ELKINS MD [...] 07/19/2016 EULOGIO BRAGA MD, Ot Z79.899 OTHER GENERAL CLEANER (CURRENT) DRUG THERAPY 07/21/2016 XUN MD, PIRES-DENEEN [...] 07/21/2016 EULOGIO BRAGA MD Ot Z79.899 OTHER GENERAL CLEANER (CURRENT) DRUG THERAPY 08/23/2016 EULOGIO BRAGA MD [...] 08/23/2016 EULOGIO BRAGA MD Ot Z79.899 OTHER GENERAL CLEANER (CURRENT) DRUG THERAPY 10/18/2016 EULOGIO BRAGA MD [...] 10/18/2016 EULOGIO BRAGA MD Ot Z79.899 OTHER INTERMEDIATE (CURRENT) DRUG THERAPY 12/29/2016 ADE FOWLER Ot Z51.81 ENCOUNTER FOR THERAPEUTIC DRUG LEVEL [facility] 12/29/2016 ADE FOWLER Ot Z79.899 OTHER INTERMEDIATE (CURRENT) DRUG THERAPY 12/29/2016 EULOGIO BRAGA MD [...] 12/29/2016 EULOGIO BRAGA MD Ot Z79.899 OTHER INTERMEDIATE (CURRENT) DRUG THERAPY 12/29/2016 JEFFREY BALL EMILY [...] 01/03/2017 EULOGIO BRAGA MD Ot Z79.899 OTHER GENERAL CLEANER (CURRENT) DRUG THERAPY 01/07/2017 KAYLA MELENDEZ APRN [...] BODY MASS INDEX (BMI) 34.0-34.9, ADULT 01/21/2017 EULGOIO BRAGA MD, Ot Z79.899 OTHER INTERMEDIATE (CURRENT) DRUG THERAPY 03/27/2017 KARLIE ZHU MD [...] HEADACHE 03/27/2017 KARLIE ZHU MD, Ot Z79.52 INTERMEDIATE (CURRENT) USE OF SYSTEMIC STER 03/27/2017 KARLIE [...] 03/29/2017 EULOGIO BRAGA MD, Ot Z79.899 OTHER INTERMEDIATE (CURRENT) DRUG THERAPY 03/29/2017 MARKO MD, KARLIE [...] HEADACHE 03/29/2017 KARLIE ZHU MD, Ot Z79.52 INTERMEDIATE (CURRENT) USE OF SYSTEMIC STER 03/29/2017 KARLIE [...] 03/30/2017 EULOGIO BRAGA MD, Ot Z79.899 OTHER INTERMEDIATE (CURRENT) DRUG THERAPY 05/20/2017 ADE FOWLER Ot Z51.81 ENCOUNTER FOR THERAPEUTIC DRUG LEVEL MON 05/20/2017 ADE FOWLER Ot Z79.899 OTHER GENERAL CLEANER (CURRENT) DRUG THERAPY 05/20/2017 EULOGIO BRAGA MD, Ot C50.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 05/20/2017 EULOGIO BRAGA MD Ot E66.9 OBESITY, UNSPECIFIED 05/20/2017 EULOGIO BRAGA MD Ot E78.5 HYPERLIPIDEMIA, UNSPECIFIED 05/20/2017 EULOGIO BRAGA MD Ot F17.210 NICOTINE DEPENDENCE, CIGARETTES, UNCOMPL 05/20/2017 EULOGIO BRAAG MD, Ot F31.9 BIPOLAR DISORDER, UNSPECIFIED 05/20/2017 [...] 05/20/2017 EULOGIO BRAGA MD, Ot Z79.899 OTHER INTERMEDIATE (CURRENT) DRUG THERAPY 05/20/2017 ADE FOWLER Ot Z51.81 ENCOUNTER FOR THERAPEUTIC DRUG LEVEL MON 05/20/2017 ADE FOWLER Ot Z79.899 OTHER GENERAL CLEANER (CURRENT) DRUG THERAPY 05/20/2017 EULOGIO BRAGA MD Ot C50.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 05/20/2017 EULOGIO BRAGA MD Ot E66.9 OBESITY, UNSPECIFIED 05/20/2017 OMI MURRAY, EULOGIO Ot E78.5 HYPERLIPIDEMIA, UNSPECIFIED 05/20/2017 [...] 05/20/2017 EULOGIO BRAGA MD, Ot Z79.899 OTHER INTERMEDIATE (CURRENT) DRUG THERAPY 05/20/2017 JEFFREY DO EMILY [...] MON 05/20/2017 ADE FOWLER Ot Z79.899 OTHER GENERAL CLEANER (CURRENT) DRUG THERAPY 05/20/2017 EULOGIO BRAGA MD, [...] 05/20/2017 EULOGIO BRAGA MD, Ot Z79.899 OTHER INTERMEDIATE (CURRENT) DRUG THERAPY 05/21/2017 NOELLE MAK MD [...] MON 05/21/2017 ADE FOWLER Ot Z79.899 OTHER INTERMEDIATE (CURRENT) DRUG THERAPY 05/21/2017 EULOGIO BRAGA MD [...] 05/21/2017 EULOGIO BRAGA MD, Ot Z79.899 OTHER GENERAL CLEANER (CURRENT) DRUG THERAPY 05/23/2017 EMILY MURPHY DO [...] Ot I10 ESSENTIAL (PRIMARY) HYPERTENSION 05/23/2017 AUBREE MURRAY, NOELLE Lazar Ot J45.909 UNSPECIFIED [...] PAIN 06/03/2017 KAYLA MELENDEZ APRN Ot Z79.52 GENERAL CLEANER (CURRENT) USE OF SYSTEMIC STER 06/03/2017 KAYLA [...] APRN Ot R07.89 OTHER CHEST PAIN 06/06/2017 AKYLA MELENDEZ APRN Ot Z79.52 INTERMEDIATE (CURRENT) USE OF SYSTEMIC STER 06/06/2017 KAYLA [...] Ot F31.9 BIPOLAR DISORDER, UNSPECIFIED 06/09/2017 KAYLA MELENDEZ APRN Ot F41.9 ANXIETY DISORDER, UNSPECIFIED 06/09/2017 KAYLA MELENDEZ APRN Ot I10 ESSENTIAL (PRIMARY) HYPERTENSION 06/09/2017 KAYLA MELENDEZ APRN Ot J45.909 UNSPECIFIED ASTHMA, UNCOMPLICATED 06/09/2017 KAYLA MELENDEZ APRN Ot K21.9 GASTRO-ESOPHAGEAL REFLUX DISEASE WITHOUT 06/09/2017 KAYLA MELENDEZ APRN Ot M06.9 RHEUMATOID ARTHRITIS, UNSPECIFIED 06/09/2017 KAYLA MELENDEZ APRN Ot R07.89 OTHER CHEST PAIN 06/09/2017 KAYLA MELENDEZ APRN Ot Z79.52 GENERAL CLEANER (CURRENT) USE OF SYSTEMIC STER 06/09/2017 KAYLA MELENDEZ APRN Ot Z85.828 PERSONAL HISTORY OF OTHER MALIGNANT NEOP 06/09/2017 KAYLA MELENDEZ APRN Ot Z87.59 PERSONAL HISTORY OF COMP OF PREG, CHLDBR 06/09/2017 KAYLA MELENDEZ APRN Ot Z90.13 ACQUIRED ABSENCE OF BILATERAL BREASTS AN 06/29/2017 ADE FOWLER Ot Z51.81 ENCOUNTER FOR THERAPEUTIC DRUG LEVEL MON 06/29/2017 ADE FOWLER Ot Z79.899 OTHER GENERAL CLEANER (CURRENT) DRUG THERAPY 06/29/2017 EULOGIO BRAGA MD Ot C50.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 06/29/2017 EULOGIO BRAGA MD Ot E66.9 OBESITY, UNSPECIFIED 06/29/2017 EULOGIO BRAGA MD Ot E78.5 HYPERLIPIDEMIA, UNSPECIFIED 06/29/2017 EULOGIO BRAGA MD Ot F17.210 NICOTINE DEPENDENCE, CIGARETTES, UNCOMPL 06/29/2017 EULOGIO BRAGA MD, Ot F31.9 BIPOLAR DISORDER, UNSPECIFIED 06/29/2017 EULOGIO BRAGA MD, Ot I10 ESSENTIAL (PRIMARY) HYPERTENSION 06/29/2017 EULOGIO BRAGA MD, Ot J44.9 CHRONIC OBSTRUCTIVE PULMONARY DISEASE, U 06/29/2017 EULOGIO BRAGA MD, Ot Z17.0 ESTROGEN RECEPTOR POSITIVE STATUS [ER+] 06/29/2017 EULOGIO BRAGA MD, Ot Z51.0 ENCOUNTER FOR ANTINEOPLASTIC RADIATION T 06/29/2017 EULOGIO BRAGA MD, Ot Z68.34 BODY MASS INDEX (BMI) 34.0-34.9, ADULT 06/29/2017 EULOGIO BRAGA MD, Ot Z79.899 OTHER GENERAL CLEANER (CURRENT) DRUG THERAPY 07/01/2017 KAYLA MELENDEZ APRN Ot C50.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 07/01/2017 KAYLA MELENDEZ APRN Ot C79.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 07/01/2017 KAYLA MELENDEZ APRN Ot D72.829 ELEVATED WHITE BLOOD CELL COUNT, UNSPECI 07/01/2017 KAYLA MELENDEZ APRN Ot E78.00 PURE HYPERCHOLESTEROLEMIA, UNSPECIFIED 07/01/2017 KAYLA MELENDEZ APRN Ot F31.9 BIPOLAR DISORDER, UNSPECIFIED 07/01/2017 KAYLA MELENDEZ APRN Ot F41.9 ANXIETY DISORDER, UNSPECIFIED 07/01/2017 KAYLA MELENDEZ APRN Ot I10 ESSENTIAL (PRIMARY) HYPERTENSION 07/01/2017 KAYLA MELENDEZ APRN, Ot J45.909 UNSPECIFIED ASTHMA, UNCOMPLICATED 07/01/2017 KAYLA MELENDEZ APRN Ot K21.9 GASTRO-ESOPHAGEAL REFLUX DISEASE WITHOUT 07/01/2017 KAYLA MELENDEZ APRN Ot M06.9 RHEUMATOID ARTHRITIS, UNSPECIFIED 07/01/2017 KAYLA MELENDEZ APRN Ot Z79.52 GENERAL CLEANER (CURRENT) USE OF SYSTEMIC STER 07/01/2017 KAYLA MELENDEZ APRN Ot Z87.59 PERSONAL HISTORY OF COMP OF PREG, CHLDBR 07/01/2017 KAYLA MELENDEZ APRN Ot Z90.13 ACQUIRED ABSENCE OF BILATERAL BREASTS AN 07/01/2017 KAYLA MELENDEZ APRN Ot Z92.21 PERSONAL HISTORY OF ANTINEOPLASTIC CHEMO 07/06/2017 ZEKE ARCHER MD Ot D69.6 THROMBOCYTOPENIA, UNSPECIFIED 07/06/2017 ZEKE ARCHER MD Ot D72.829 ELEVATED WHITE BLOOD CELL COUNT, UNSPECI 07/06/2017 ZEKE ARCHER MD Ot E78.00 PURE HYPERCHOLESTEROLEMIA, UNSPECIFIED 07/06/2017 ZEKE ARCHER MD Ot F17.210 NICOTINE DEPENDENCE, CIGARETTES, UNCOMPL 07/06/2017 ZEKE ARCHER MD Ot F31.9 BIPOLAR DISORDER, UNSPECIFIED 07/06/2017 ZEKE ARCHER MD Ot F41.9 ANXIETY DISORDER, UNSPECIFIED 07/06/2017 ZEKE ARCHER MD Ot I10 ESSENTIAL (PRIMARY) HYPERTENSION 07/06/2017 ZEKE ARCHER MD Ot J45.909 UNSPECIFIED ASTHMA, UNCOMPLICATED 07/06/2017 ZEKE ARCHER MD Ot K21.9 GASTRO-ESOPHAGEAL REFLUX DISEASE WITHOUT 07/06/2017 ZEKE ARCHER MD Ot M06.9 RHEUMATOID ARTHRITIS, UNSPECIFIED 07/06/2017 ZEKE ARCHER MD Ot R10.31 RIGHT LOWER QUADRANT PAIN 07/06/2017 ZEKE ARCHER MD Ot R10.9 UNSPECIFIED ABDOMINAL PAIN 07/06/2017 ZEKE ARCHER MD Ot Z79.52 GENERAL CLEANER (CURRENT) USE OF SYSTEMIC STER 07/06/2017 ZEKE ARCHER MD Ot Z85.3 PERSONAL HISTORY OF MALIGNANT NEOPLASM O 07/06/2017 ZEKE ARCHER MD Ot Z85.828 PERSONAL HISTORY OF OTHER MALIGNANT NEOP 07/06/2017 ZEKE ARCHER MD Ot Z85.841 PERSONAL HISTORY OF MALIGNANT NEOPLASM O 07/06/2017 ZEKE ARCHER MD Ot Z87.59 PERSONAL HISTORY OF COMP OF PREG, CHLDBR 07/06/2017 ZEKE ARCHER MD Ot Z90.13 ACQUIRED ABSENCE OF BILATERAL BREASTS AN 07/06/2017 ZEKE ARCHER MD Ot Z90.89 ACQUIRED ABSENCE OF OTHER ORGANS 07/06/2017 ZEKE ARCHER MD Ot Z92.21 PERSONAL HISTORY OF ANTINEOPLASTIC CHEMO 07/06/2017 ZEKE ARCHER MD Ot Z95.9 PRESENCE OF CARDIAC AND VASCULAR IMPLANT Procedures There is no data. Results Test [...] INFLUENZA A AND B ANTIGENS BY IA [facility] Bacterial blood culture - 05/24/16 19:47 Bacterial blood culture [facility] Complete blood count (CBC) [...] culture - 05/24/16 20:59 Bacterial urine culture [id number] NRG COLONY COUNT >100,000/ML NRG FTX;REPORTABLE PLUS, [...] i.cardiac measurement (mass/volume) < ng/ mL <0.30 Complete blood count (CBC) with automated white blood cell (WBC) differential - 06/29/17 12:15 Blood leukocytes automated count (number/volume) 26.6 10*3/uL 4.3-11.0 Blood erythrocytes automated count (number/volume) 4.23 10*6/uL 4.35-5.85 Venous blood hemoglobin measurement (mass/volume) 13.4 g/dL 11.5-16.0 Blood hematocrit (volume fraction) 40 % 35-52 Automated erythrocyte mean corpuscular volume 94 [foz_us] 80-99 Automated erythrocyte mean corpuscular hemoglobin (mass per erythrocyte) 32 pg 25-34 Automated erythrocyte mean corpuscular hemoglobin concentration measurement ( mass/volume) 34 g/dL 32-36 Automated erythrocyte distribution width ratio 14.9 % 10.0-14.5 Automated blood platelet count (count/volume) 222 10*3/uL 130-400 Automated blood platelet mean volume measurement 10.2 [foz_us] 7.4-10.4 Automated blood neutrophils/100 leukocytes 90 % 42-75 Automated blood lymphocytes/100 leukocytes 5 % 12-44 Blood monocytes/100 leukocytes 4 % 0-12 Automated blood eosinophils/100 leukocytes 1 % 0-10 Automated blood basophils/100 leukocytes 0 % 0-10 Blood neutrophils automated count (number/volume) 24.0 10*3 1.8-7.8 Blood lymphocytes automated count (number/volume) 1.2 10*3 1.0-4.0 Blood monocytes automated count (number/volume) 1.0 10*3 0.0-1.0 Automated eosinophil count 0.3 10*3/uL 0.0-0.3 Automated blood basophil count (count/volume) 0.0 10*3/uL 0.0-0.1 Blood lactic acid measurement (moles/volume) - 06/29/17 12:15 Blood lactic acid measurement (moles/volume) 1.34 mmol/L 0.50-2.00 Comprehensive metabolic panel - 06/29/17 12:15 Serum or plasma sodium measurement (moles/volume) 140 mmol/L 135-145 Serum or plasma potassium measurement (moles/volume) 3.0 mmol/L 3.6-5.0 Serum or plasma chloride measurement (moles/volume) 105 mmol/L 98-107 Carbon dioxide 25 mmol/L 21-32 Serum or plasma anion gap determination (moles/volume) 10 mmol/L 5-14 Serum or plasma urea nitrogen measurement (mass/volume) 2 mg/dL 7-18 Serum or plasma creatinine measurement (mass/volume) 0.58 mg/dL 0.60-1.30 Serum or plasma urea nitrogen/creatinine mass ratio 3 NRG Serum or plasma creatinine measurement with calculation of estimated glomerular filtration rate > NRG Serum or plasma glucose measurement (mass/volume) 71 mg/dL 70-105 Serum or plasma calcium measurement (mass/volume) 8.8 mg/dL 8.5-10.1 Serum or plasma total bilirubin measurement (mass/volume) 0.3 mg/dL 0.1-1.0 Serum or plasma alkaline phosphatase measurement (enzymatic activity/volume) 69 U/L 40-136 Serum or plasma aspartate aminotransferase measurement (enzymatic activity/ volume) 24 U/L 5-34 Serum or plasma alanine aminotransferase measurement (enzymatic activity/volume ) 21 U/L 0-55 Serum or plasma protein measurement (mass/volume) 6.7 g/dL 6.4-8.2 Serum or plasma albumin measurement (mass/volume) 3.9 g/dL 3.2-4.5 Blood manual differential performed detection - 06/29/17 12:15 Blood monocytes/100 leukocytes 3 % NRG Manual blood segmented neutrophils/100 leukocytes 84 % NRG Blood band neutrophils/100 leukocytes 10 % NRG Manual blood lymphocytes/100 leukocytes 2 % NRG Manual eosinophils/100 leukocytes in nose 0 % NRG Manual blood basophils/100 leukocytes 0 % NRG Blood lymphocytes variant/100 leukocytes 1 % NRG Blood erythrocyte morphology finding identification NORMAL NRG Bacterial blood culture - 06/29/17 12:15 Bacterial blood culture NG NRG Bacterial blood culture - 06/29/17 12:36 Bacterial blood culture NG NRG Complete urinalysis with reflex to culture - 06/29/17 12:55 Urine color determination YELLOW NRG Urine clarity determination CLEAR NRG Urine pH measurement by test strip 7 5-9 Specific gravity of urine by test strip 1.005 1.016- 1.022 Urine protein assay by test [...] NORMAL Urine leukocyte esterase detection by dipstick NEGATIVE NEGATIVE Automated urine sediment erythrocyte count by microscopy (number/high power field) NONE NRG Automated urine sediment leukocyte count by [...] automated white blood cell (WBC) differential - 07/04/17 10:30 Blood leukocytes automated count (number/volume) 18.5 10*3/uL 4.3-11.0 Blood erythrocytes automated count (number/volume) 4.23 10*6/uL 4.35-5.85 Venous blood hemoglobin measurement (mass/volume) 13.4 g/dL 11.5-16.0 Blood hematocrit (volume fraction) 39 % 35-52 Automated erythrocyte mean corpuscular volume 93 [foz_us] 80-99 Automated erythrocyte mean corpuscular hemoglobin (mass per erythrocyte) 32 pg 25-34 Automated erythrocyte mean corpuscular hemoglobin concentration measurement ( mass/volume) 34 g/dL 32-36 Automated erythrocyte distribution width ratio 15.2 % 10.0-14.5 Automated blood platelet count (count/volume) 51 10*3/uL 130-400 Automated blood platelet mean volume measurement 11.1 [foz_us] 7.4-10.4 Automated blood neutrophils/100 leukocytes 85 % 42-75 Automated blood lymphocytes/100 leukocytes 7 % 12-44 Blood monocytes/100 leukocytes 7 % 0-12 Automated blood eosinophils/100 leukocytes 1 % 0-10 Automated blood basophils/100 leukocytes 0 % 0-10 Blood neutrophils automated count (number/volume) 15.8 10*3 1.8-7.8 Blood lymphocytes automated count (number/volume) 1.3 10*3 1.0-4.0 Blood monocytes automated count (number/volume) 1.2 10*3 0.0-1.0 Automated eosinophil count 0.1 10*3/uL 0.0-0.3 Automated blood basophil count (count/volume) 0.1 10*3/uL 0.0-0.1 Comprehensive metabolic panel - 07/04/17 10:30 Serum or plasma sodium measurement (moles/volume) 137 mmol/L 135-145 Serum or plasma potassium measurement (moles/volume) 3.6 mmol/L 3.6-5.0 Serum or plasma chloride measurement (moles/volume) 105 mmol/L 98-107 Carbon dioxide 19 mmol/L 21-32 Serum or plasma anion gap determination (moles/volume) 13 mmol/L 5-14 Serum or plasma urea nitrogen measurement (mass/volume) 5 mg/dL 7-18 Serum or plasma creatinine measurement (mass/volume) 0.63 mg/dL 0.60-1.30 Serum or plasma urea nitrogen/creatinine mass ratio 8 NRG Serum or plasma creatinine measurement with calculation of estimated glomerular filtration rate > NRG Serum or plasma glucose measurement (mass/volume) 144 mg/dL 70-105 Serum or plasma calcium measurement (mass/volume) 8.8 mg/dL 8.5-10.1 Serum or plasma total bilirubin measurement (mass/volume) 0.2 mg/dL 0.1-1.0 Serum or plasma alkaline phosphatase measurement (enzymatic activity/volume) 130 U/L 40-136 Serum or plasma aspartate aminotransferase measurement (enzymatic activity/ volume) 58 U/L 5-34 Serum or plasma alanine aminotransferase measurement (enzymatic activity/volume ) 38 U/L 0-55 Serum or plasma protein measurement (mass/volume) 6.4 g/dL 6.4-8.2 Serum or plasma albumin measurement (mass/volume) 3.3 g/dL 3.2-4.5 Blood manual differential performed detection - 07/04/17 10:30 Blood monocytes/100 leukocytes 7 % NRG Manual blood segmented neutrophils/100 leukocytes 81 % NRG Blood band neutrophils/100 leukocytes 7 % NRG Manual blood lymphocytes/100 leukocytes 5 % NRG Manual eosinophils/100 leukocytes in nose 0 % NRG Manual blood basophils/100 leukocytes 0 % NRG Blood erythrocyte morphology finding identification NORMAL NRG Encounters ACCT No. Visit Date/Time Discharge Status Pt. Type Provider Facility Loc./Unit Complaint [id number] 07/04/2017 09:02:00 07/04/2017 11:29:00 DIS Outpatient ZEKE ARCHER MD [facility] ER ABD PAIN AFTER PICC LINE PLACED [id number] 06/29/2017 11:27:00 06/29/2017 13:35:00 DIS Outpatient KAYLA MELENDEZ DRAPERY EXAMINER [facility] ER ELEVATED WBC [id number] 06/03/2017 11:53:00 06/03/2017 13:57:00 DIS Emergency KAYLA MELENDEZ DRAPERY EXAMINER [facility] ER JAW PAIN [id number] 05/21/2017 08:03:00 05/21/2017 11:13:00 DIS Emergency AUBREE MURRAY, NOELLE Lazar [facility] ER CHEST PAIN [id number] 05/20/2017 03:45:00 05/20/2017 06:00:00 DIS Emergency EMILY MURPHY DO [facility] ER WOLF [id number] 03/30/2017 00:29:00 03/30/2017 23:59:59 CLS Preadmit EULOGIO BRAGA MD [facility] ONC [id number] 01/12/2017 09:52:00 03/29/2017 00:01:00 DIS Outpatient EULOGIO BRAGA MD [facility] ONC [id number] 03/27/2017 10:40:00 03/27/2017 14:16:00 DIS Emergency KARLIE ZHU MD [facility] ER BRAIN TUMOR/HEAD PAIN/ L SIDE PAIN [id number] 01/07/2017 14:47:00 01/07/2017 18:14:00 DIS Emergency KAYLA MELENDEZ DRAPERY EXAMINER [facility] ER N/V [id number] 12/29/2016 09:50:00 12/29/2016 11:15:00 DIS Emergency JEFFREY DO EMILY K [facility] ER MIGRAINES,NOSEBLEEDS [id number] 07/20/2016 15:28:00 10/18/2016 00:01:00 DIS Outpatient OMI MURRAY, EULOGIO [facility] ONC [id number] 06/28/2016 08:24:00 06/28/2016 10:05:00 DIS Emergency SEVERO MURRAY, YANG Nassar [facility] ER BREAST AREA PAIN/ BLISTED/BLEEDING FROM RADIATION [id number] 06/24/2016 09:48:00 06/24/2016 23:59:59 CLS Outpatient EULOGIO BRAGA MD [facility] ONC [id number] 05/26/2016 12:42:00 05/26/2016 15:18:00 DIS Emergency KARLIE ZHU MD [facility] ER RECTAL BLEEDING/PAIN [id number] 05/24/2016 20:35:00 05/25/2016 13:15:00 DIS Inpatient TERRI MURRAY, ABAD Cifuentes [facility] 4TH FEVER,BRONCHITIS,HYPOXIA, BREAST CA-ON CHEMO AND RA [id number] 03/04/2016 10:37:00 03/04/2016 11:16:00 DIS Emergency KAYLA MELENDEZ APRN [facility] ER PAIN/SWELLING RIGHT BREAST AREA [id number] 03/01/2016 10:03:00 03/01/2016 23:59:59 CLS Outpatient ADE FOWLER [facility] LAB [id number] [id number] 02/16/2016 08:21:00 02/16/2016 12:11:00 DIS Emergency EDIL QURESHI [facility] ER ANXIETY, NEEDING PORT FLUSHED [id number] 05/13/2015 08:02:00 07/30/2015 00:01:00 DIS Outpatient CEE ALSTON MD [facility] ONC [id number] 05/01/2015 11:17:00 05/01/2015 23:59:59 CLS Outpatient CEE ALSTON MD [facility] CARD BREAST CANCER [id number] 04/22/2015 11:06:00 04/22/2015 23:59:59 CLS Preadmit SANDRA TANG [facility] ONC [id number] 04/07/2015 10:59:00 04/14/2015 00:01:00 DIS Outpatient CEE ALSTON MD [facility] ONC [id number] 04/07/2015 11:51:00 04/07/2015 23:59:59 CLS Outpatient SANDRA TANG [facility] ONC [id number] 04/07/2015 11:17:00 04/07/2015 23:59:59 CLS Outpatient CEE ALSTON MD [facility] CARD BREAST CANCER [id number] 03/19/2015 08:29:00 03/19/2015 13:05:00 [facility] [id number] 03/17/2015 06:12:00 03/17/2015 23:59:59 CLS Outpatient CAM BRAGA MD [facility] PREOP RIGHT BREAST CANCER [id number] 02/17/2015 10:18:00 02/17/2015 23:59:59 CLS Outpatient CEE ALSTON MD [facility] 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 [id number] 01/24/2015 13:52:00 01/24/2015 23:59:59 CLS Outpatient CEE ALSTON MD [facility] CARD ENCOUNTER FOR MONITORING CARDIOTOXIC DRUGS [id number] 01/23/2015 14:18:00 01/23/2015 23:59:59 CLS Outpatient SANDRA TANG [facility] ONC [id number] 01/23/2015 09:31:00 01/23/2015 23:59:59 CLS Outpatient CEE ALSTON MD [facility] RAD BREAST CA [id number] 01/22/2015 14:57:00 01/22/2015 23:59:59 CLS Outpatient CEE ALSTON MD [facility] RAD ABN MAMMO [id number] 01/17/2015 09:42:00 01/17/2015 23:59:59 CLS Outpatient CEE ALSTON MD [facility] CARD ENCOUNTER FOR MONITOR CARDIO TOXIC DRUG THERAPY [id number] 01/17/2015 09:38:00 01/17/2015 17:00:00 DIS Outpatient CAM BRAGA MD [facility] SDC BREAST CANCER [id number] 01/15/2015 13:52:00 01/15/2015 23:59:59 CLS Outpatient SHERRY ROGEL MD (DDU) [facility] RT DDU [id number] 01/15/2015 05:43:00 01/15/2015 23:59:59 CLS Outpatient CAM BRAGA MD [facility] PREOP [id number] 01/03/2015 07:05:00 01/03/2015 23:59:59 CLS Outpatient DARÍO BURROWS APRN [facility] RAD ABNORMAL MAMMO, BREAST MASS [id number] 01/01/2015 14:58:00 01/01/2015 23:59:59 CLS Outpatient DARÍO BURROWS DRAPERY EXAMINER [facility] RAD BREAST PAIN RT BREAST [id number] 12/25/2014 16:08:00 12/25/2014 17:23:00 DIS Emergency KAYLA MELENDEZ DRAPERY EXAMINER [facility] ER R BREAST SWELLING/ TENDERNESS [id number] 12/19/2014 08:51:00 12/19/2014 11:43:00 DIS Emergency REGINALDO ANNA MD [facility] ER COUGH/FEVER [id number] 11/21/2014 11:43:00 11/21/2014 13:07:00 DIS Emergency KAYLA MELENDEZ DRAPERY EXAMINER [facility] ER SOA [id number] 11/08/2014 14:38:00 11/08/2014 16:53:00 DIS Emergency REGINALDO ANNA MD [facility] ER SOA [id number] 10/28/2014 14:21:00 10/28/2014 23:59:59 CLS Outpatient DARÍO BURROWS APRN [facility] RAD LOCALIZE SWELLING MASS OR HEAD 3 ABNORMAL GROWTHS [id number] 10/11/2014 09:35:00 10/11/2014 10:09:00 DIS Emergency REGINALDO ANNA MD [facility] ER RASH [id number] 09/27/2014 09:09:00 09/27/2014 10:19:00 DIS Emergency KARLIE ZHU MD [facility] ER
[2017-07-09] MEDS ORDERED: morphine INJ 10 MG/ML 1ML (SYR OR VIAL) IVP STA (18:19)
--- NOTE | 2017-07-09 18:21 | ED General ---
General Chief Complaint: General Problems/Pain Stated Complaint: PT HAS BRAIN TUMOR,PAIN ALL OVER,JAW PAIN Nursing Triage Note: Pt reporting increased pain from cancer no longer controlled by oral pain med. Pt has chronic abd pain with head pain and jaw pain bilateral that she reports is usual for her. Nursing Sepsis Screen: No Definite Risk Source of Information: Patient Exam Limitations: No Limitations History of Present Illness Date Seen by Provider: Jul 09, 2017 Time Seen by Provider: 18:09 Initial Comments Here here with report of increasing jaw pain. 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 She is followed in the cancer Center at [facility]. Previous history would indicate that this would be terminal cancer but she is trying to find cure and has moved her cancer treatment to [facility]. She is on MS Contin twice daily@15 mg dosing. She states that that is not working. Further discussion reveals that her last dose that she had was this morning. She has no breakthrough medications. Denies nausea or vomiting. Denies dysuria or diarrhea. States that she has continued decreased appetite. Timing/Duration: 1 Week Severity: Moderate Associated Systoms: No Chest Pain, No Cough, No Fever/Chills; Loss of Appetite ; No Nausea/Vomiting, No Weakness Allergies and Home Medications Allergies Coded Allergies: No Known Drug Allergies (Unverified , 09/27/14) Home Medications Dexamethasone 4 Mg Tablet, 8 MG PO QID Prescribed by: EMILY MURPHY on 12/29/16 1114 Divalproex Sodium 500 Mg Tab.er.24h, 2,000 MG PO HS, (Reported) TAKES 4 (500MG) TABLETS Morphine Sulfate 15 Mg Tablet.er, 15 MG PO BID PRN for PAIN-BREAKTHROUGH Prescribed by: ZEKE ARCHER on 07/04/17 1118 Promethazine HCl 25 Mg Supp.rect, 25 MG RC Q4H Prescribed by: EMILY MURPHY on 05/20/17 0549 Patient Home Medication List Home Medication List Reviewed: Yes Review of Systems Constitutional: see HPI; No chills, No fever EENTM: other (bilateral significant jaw pain) Respiratory: No cough, No short of breath Cardiovascular: No chest pain, No edema Gastrointestinal: No abdominal pain, No nausea, No vomiting Musculoskeletal: see HPI, joint pain All Other Systems Reviewed Negative Unless Noted: Yes Past Qgkisou-Kaemwz-Hmqezl Hx Past Med/Social Hx: Reviewed Nursing Past Med/Soc Hx Patient Social History Alcohol Use: Denies Use Recreational Drug Use: No Type Used: Cigarettes 2nd Hand Smoke Exposure: Yes Recent Foreign Travel: No Contact w/Someone Who Travel: No Recent Infectious Disease Expo: No Recent Hopitalizations: No Immunizations Up To Date Tetanus Booster (TDap): Unknown Seasonal Allergies Seasonal Allergies: No Past Medical History Surgeries: Yes (INFUSAPORT; BILATERAL MASTECTOMY) Appendectomy, Breast, Section, Gallbladder, Vascular Surgery Respiratory: Yes Asthma Cardiac: Yes High Cholesterol, Hypertension Neurological: Yes (BRAIN METS FROM BREAST CANCER) 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: No (THROUGH MENOPAUSE) Female 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 Sexually Transmitted Disease: No HIV/AIDS: No Genitourinary: No Gastrointestinal: Yes Gastroesophageal Reflux Musculoskeletal: Yes Rheumatoid Arthritis, Chronic Back Pain Endocrine: No HEENT: Yes (TEETH REMOVED) Loss of Vision: Denies Hearing Impairment: Denies Cancer: Yes Skin, Breast Did You Recieve Any Treatments: Yes What Type of Treatment Did You: Chemotherapy, Radiation, Surgical Intervention last radiation 4 mo ago Psychosocial: Yes Anxiety, Bipolar, Personality Disorder, Depression Integumentary: No Blood Disorders: No Adverse Reaction/Blood Tranf: No (HAS HAD BLOOD TRANSFUSION WITH NO PROBLEM) Family Medical History Reviewed Nursing Family Hx Not obtainable due to adoption (ADOPTION) No Pertinent Family Hx Physical Exam Vital Signs Vital Signs - First Documented 07/09/17 17:14 Temp 97.2 Pulse 94 Resp 18 B/P (MAP) 147/84 (105) Pulse Ox 99 O2 Delivery Room Air Capillary Refill : Less Than 3 Seconds General Appearance: Moderate Distress HEENT: PERRL/EOMI, Pharynx Normal Neck: Non Tender, Supple Respiratory: Lungs Clear, Normal Breath Sounds Cardiovascular: Regular Rate, Rhythm, No Murmur Gastrointestinal: Non Tender, Soft Extremity: Normal Range of Motion, Non Tender Neurologic/Psychiatric: Alert, Oriented x3 Skin: Normal Color, Warm/Dry Progress/Results/Core Measures Suspected Sepsis Recent Fever Within 48 Hours: No Infection Criteria Present: None New/Unexplained Altered Menta: No Sepsis Screen: No Definite Risk SIRS Temperature:97.2 Pulse: 94 Respiratory Rate: 18 Blood Pressure 147 /84 Mean: 105 Results/Orders My Orders Orders - KARLIE ZHU MD Morphine Injection (Morphine Injection (07/09/17 18:19) Vital Signs/I&O 07/09/17 17:14 Temp 97.2 Pulse 94 Resp 18 B/P (MAP) 147/84 (105) Pulse Ox 99 O2 Delivery Room Air Capillary Refill : Less Than 3 Seconds Blood Pressure Mean: 105 Progress Note : Progress Note Seen and evaluated. Morphine 10 mg IV ordered. This did greatly reduce her pain. I will prescribe short course of MS Contin that she is out of that and breakthrough medicine with hydrocodone 10 mg/325 mg. I have strongly encouraged her to follow-up with [facility] as well as with her cancer doctor. She has called her cancer doctor is waiting for call back but has appointment on July 15. As she is feeling better, I will discharge her home with return precautions. Patient verbalize understanding instructions and agreement with plan. Departure Impression Primary Impression: Breast cancer metastasized to brain Qualified Codes: C50.911 - Malignant neoplasm of unspecified site of right female breast; C79.31 - Secondary malignant neoplasm of brain Additional Impression: Cancer associated pain Disposition: HOME, SELF-CARE Condition: Stable Departure-Patient Inst. Decision time for Depature: 18:59 Referrals: ABAD MURRAY MD (PCP/Family) Primary Care Physician Patient Instructions: Cancer Pain Syndromes (DC) Add. Discharge Instructions: All discharge instructions reviewed with patient and/or family. Voiced understanding. Take medications as directed. Do not take more than prescribed. I highly encourage her to follow-up with [facility]. Call Dr. Murray's office Tuesday morning for appointment. Also call your cancer doctor. Take other medications as directed. Return for worse pain, fever, vomiting, weakness, breathing problems or other concerns as needed. Scripts Morphine Sulfate (Ms Contin) 15 Mg Tablet.er 15 MG PO BID, #14 TAB 0 Refills Prov: KARLIE ZHU MD 07/09/17 Hydrocodone/Acetaminophen (Hydrocodon-Acetaminophn 10-325) 1 Each Tablet 1 EACH PO Q8H PRN for PAIN-MODERATE, #21 TAB 0 Refills Prov: KARLIE ZHU MD 07/09/17 Copy Copies To 1: ABAD MURRAY MD, TIMOTHY D MD Jul 09, 2017 18:21
[2017-07-09] MEDS ORDERED: MORP15TA69 PO (19:02)
[2017-07-09] MEDS ORDERED: HYDR-3820 PO (19:02)
[2017-07-09] MEDS ORDERED: RX-HYDROCODONE/APAP 5/325 MG #4 TAB PK PO PRN (19:15)
[2017-07-09 19:23] VITALS: BP 140/79
== END 2017-07-09 19:23 | disposition home or self-care (01) ==
LOC: EDUNIT# 16:59 → ER 17:00
DX: C50.811 Malignant neoplasm of overlapping sites of right female breast (principal); C79.31 Secondary malignant neoplasm of brain; G89.3 Neoplasm related pain (acute) (chronic); F41.9 Anxiety disorder, unspecified; F31.9 Bipolar disorder, unspecified; F60.9 Personality disorder, unspecified; K21.9 Gastro-esophageal reflux disease without esophagitis; E78.00 Pure hypercholesterolemia, unspecified; I10 Essential (primary) hypertension; J45.909 Unspecified asthma, uncomplicated; Z90.13 Acquired absence of bilateral breasts and nipples; Z90.49 Acquired absence of other specified parts of digestive tract; Z87.59 Personal history of other complications of pregnancy, childbirth and the puerperium; Z77.22 Contact with and (suspected) exposure to environmental tobacco smoke (acute) (chronic)
CPT/HCPCS: 96374; 99283

== ENCOUNTER 2017-07-12 20:12 | Emergency (ER) | payer MEDICARE, MEDICAID ==
[~2017-07-12] VITALS: Ht 165.1 cm; Wt 66.7 kg
[~2017-07-12 20:12] MED LIST changes: +HYDR-3820 PO
--- OUTSIDE RECORDS SUMMARY | 2017-07-12 20:18 | XMS REPORT ---
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 Name Role Phone ABAD MURRAY Unavailable PROBLEMS Type Condition ICD9-CM Code TWA51-BI Code Onset Dates Condition Status SNOMED Code Problem COPD (chronic obstructive pulmonary disease) J44.9 Active 59897273 Problem Benign essential hypertension I10 Active 8797398 Problem Arthritis of both hips M12.9 Active 71162121 Problem 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 Active 57639027 Problem Malignant neoplasm of unspecified site of right female breast C50.911 Active 752495998 Problem Tobacco abuse Z72.0 Active 259923280 Problem Neuropathy of right foot G57.91 Active 153849180 Problem Bipolar 1 disorder, depressed F31.9 Active 62692428 Problem Bipolar disorder, unspecified F31.9 Active 29467131 Problem Seasonal allergic rhinitis, unspecified allergic rhinitis trigger J30.2 Active 757794118 Problem Malignant neoplasm of right female breast, unspecified site of breast C50.911 Active 484816141 ALLERGIES No Information ENCOUNTERS Encounter Location Date Diagnosis [facility] [address] [address] Jan, Rash R21 and Hordeolum externum of right lower eyelid H00.012 [facility] [address] [place] [id number] [place] [phone] Jan, [facility] IN [facility] [address] [phone] Nov, Acute non-recurrent frontal sinusitis J01.10 [facility] [address] [address] Jul, [facility] [address] [address] Jul, [facility] [id number] [place] [phone] Jul, Neuropathy of right foot G57.91 ; Tobacco abuse Z72.0 and Breast cancer, right C50.911 [facility] [id number] [place] [id number] May, [facility] [address] [address] May, Seasonal allergic rhinitis, unspecified allergic rhinitis trigger J30.2 [facility] IN [place] [address] [address] Apr, Acute bacterial conjunctivitis of right eye H10.31 [place] [address] [address] 22 Mar, 2016 Malignant neoplasm of right female breast, unspecified site of breast C50.911 ; Acute nasopharyngitis J00 and Bipolar 1 disorder, depressed F31.9 [facility] [place] [id number] [place] [address] Mar, Subacute frontal sinusitis J01.10 and Cough R05 [facility] IN [place] [id number] [place] [address] 14 Mar, 2016 Acute non-recurrent maxillary sinusitis J01.00 [facility] IN [facility] [id number] [place] [address] 10 Mar, 2016 Seasonal allergic rhinitis, unspecified allergic rhinitis trigger J30.2 [facility] [id number] [place] [address] 03 Mar, 2016 [facility] [id number] [place] [address] Feb, Bipolar disorder, unspecified F31.9 [facility] [id number] [place] [phone] Feb, [facility] [address] [id number] [id number] Jan, [facility] [address] [id number] [id number] Oct, [facility] [address] [id number] [id number] Oct, [facility] [address] [id number] [id number] Feb, [facility] [address] [id number] [id number] Feb, Bipolar 1 disorder F31.9 ; COPD (chronic obstructive pulmonary disease) J44.9 ; Breast cancer, right C50.911 ; Tachycardia R00.0 and Benign essential hypertension I10 [facility] [id number] [place] [address] Jan, Sebaceous cyst L72.3 [facility] [id number] [place] [address] Jan, [facility] [id number] [place] [address] Jan, Malignant neoplasm of right female breast, unspecified site of breast C50.911 [facility] [id number] [place] [address] Jan, [facility] [id number] [place] [phone] Jan, [facility] [id number] [place] [address] Jan, Sebaceous cyst L72.3 [facility] [id number] [place] [address] Dec, [facility] [id number] [place] [address] Dec, Abnormal mammogram R92.8 and Breast mass N63 [place] [id number] [place] [address] Dec, Breast pain, right N64.[address] [address] Dec, COPD (chronic obstructive pulmonary disease) J44.9 ; Weight gain R63.5 and Encounter for weight loss counseling Z71.[address] [address] Dec, [place] [address] [address] Nov, Sebaceous cyst L72.[address] [address] Oct, Skin lesion of right arm 709.9 and Localized swelling, mass , and lump of head 784.[address] [address] Oct, [place] [address] [id number] [place] [address] Oct, [address] [address] Oct, Routine adult health maintenance V70.0 and Fatigue 780.[address] [place] [id number] [place] [address] Oct, Routine adult health maintenance V70.0 ; COPD (chronic obstructive pulmonary disease) 496 ; Arthritis of both hips 716.95 ; Fatigue 780.79 and Localized swelling, mass, and lump of head 784.2 [place] [id number] [place] [address] Oct, [place] [id number] [place] [address] Sep, COPD (chronic obstructive pulmonary disease) 496 and Bipolar disorder 296.80 IMMUNIZATIONS No Known Immunizations SOCIAL HISTORY Never Assessed REASON FOR VISIT Phone call PLAN OF CARE VITAL SIGNS MEDICATIONS No Known Medications RESULTS No Results PROCEDURES No Known [...] History surgeries Hospitalization History Fever of unknown origin-[facility] 05/24/16
[2017-07-12] MEDS ORDERED: morphine INJ 10 MG/ML 1ML (SYR OR VIAL) IVP ONE ×2 (20:30→22:15)
--- NOTE | 2017-07-12 20:53 | ED General ---
General Chief Complaint: General Problems/Pain Stated Complaint: FALL, ABD PAIN Nursing Triage Note: pt brought in by ems with complaint of generalized pain, and a fall yesterday. Nursing Sepsis Screen: No Definite Risk Source of Information: Patient, EMS Exam Limitations: No Limitations History of Present Illness Date Seen by Provider: Jul 12, 2017 Time Seen by Provider: 20:52 Initial Comments to ER per EMS from home with reports of bilateral flank pain, diffuse pain. 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 She is receiving treatment in [place] for this. She fell yesterday and believes she feels a new knot on the right side of the abdomen. Timing/Duration: 4-6 Hours Severity: Moderate Associated Systoms: Nausea/Vomiting Allergies and Home Medications Allergies Coded Allergies: No Known Drug Allergies (Unverified , 09/27/14) Home Medications Dexamethasone 4 Mg Tablet, 8 MG PO QID Prescribed by: EMILY MURPHY on 12/29/16 1114 Divalproex Sodium 500 Mg Tab.er.24h, 2,000 MG PO HS, (Reported) TAKES 4 (500MG) TABLETS Hydrocodone/Acetaminophen 1 Each Tablet, 1 EACH PO Q8H PRN for PAIN-MODERATE Prescribed by: KARLIE ZHU on 07/09/17 190 Morphine Sulfate 15 Mg Tablet.er, 15 MG PO BID PRN for PAIN-BREAKTHROUGH Prescribed by: ZEKE ARCHER on 07/04/17 1118 Morphine Sulfate 15 Mg Tablet.er, 15 MG PO BID Prescribed by: KARLIE ZHU on 07/09/17 190 Promethazine HCl 25 Mg Supp.rect, 25 MG RC Q4H Prescribed by: EMILY MURPHY on 05/20/17 0549 Patient Home Medication List Home Medication List Reviewed: Yes Review of Systems Constitutional: see HPI; No chills, No fever (wwhat) EENTM: see HPI Respiratory: no symptoms reported Cardiovascular: no symptoms reported Genitourinary: no symptoms reported Musculoskeletal: no symptoms reported Skin: no symptoms reported (his) Psychiatric/Neurological: No Symptoms Reported Past Nozhbin-Wftsyf-Avkbck Hx Patient Social History Alcohol Use: Denies Use Recreational Drug Use: No Smoking Status: Current Everyday Smoker Type Used: Cigarettes 2nd Hand Smoke Exposure: Yes Recent Foreign Travel: No Contact w/Someone Who Travel: No Recent Infectious Disease Expo: No Recent Hopitalizations: No Immunizations Up To Date Tetanus Booster (TDap): Unknown Seasonal Allergies Seasonal Allergies: No Past Medical History Surgeries: Yes (INFUSAPORT; BILATERAL MASTECTOMY) Appendectomy, Breast, Section, Gallbladder, Vascular Surgery Respiratory: Yes Asthma Cardiac: Yes High Cholesterol, Hypertension Neurological: Yes (BRAIN METS FROM BREAST CANCER) 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: No (THROUGH MENOPAUSE) Female 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 Sexually Transmitted Disease: No HIV/AIDS: No Genitourinary: No Gastrointestinal: Yes Gastroesophageal Reflux Musculoskeletal: Yes Rheumatoid Arthritis, Chronic Back Pain Endocrine: No HEENT: Yes (TEETH REMOVED) Loss of Vision: Denies Hearing Impairment: Denies Cancer: Yes Skin, Breast Did You Recieve Any Treatments: Yes What Type of Treatment Did You: Chemotherapy, Radiation, Surgical Intervention Psychosocial: Yes Anxiety, Bipolar, Personality Disorder, Depression Integumentary: No Blood Disorders: No Adverse Reaction/Blood Tranf: No (HAS HAD BLOOD TRANSFUSION WITH NO PROBLEM) Family Medical History Not obtainable due to adoption (ADOPTION) No Pertinent Family Hx Physical Exam Vital Signs Vital Signs - First Documented 07/12/17 20:12 Temp 98.8 Pulse 75 Resp 16 B/P (MAP) 141/96 (111) Pulse Ox 98 O2 Delivery Room Air Capillary Refill : Less Than 3 Seconds General Appearance: No Apparent Distress, WD/WN, Chronically ill Eyes: Bilateral Eye Normal Inspection, Bilateral Eye PERRL HEENT: PERRL/EOMI, TMs Normal Neck: Full Range of Motion, Normal Inspection Respiratory: No Accessory Muscle Use, No Respiratory Distress Cardiovascular: Regular Rate, Rhythm, Normal Peripheral Pulses Gastrointestinal: Normal Bowel Sounds, Non Tender, Soft Extremity: Normal Capillary Refill, No Calf Tenderness Neurologic/Psychiatric: Alert, Oriented x3 Skin: Normal Color, Warm/Dry Progress/Results/Core Measures Suspected Sepsis Recent Fever Within 48 Hours: No Infection Criteria Present: None New/Unexplained Altered Menta: No Sepsis Screen: No Definite Risk SIRS Temperature:98.8 Pulse: 75 Respiratory Rate: 16 Laboratory Tests 07/12/17 21:01: White Blood Count 5.2 Blood Pressure 141 /96 Mean: 111 Laboratory Tests 07/12/17 21:01: Creatinine 0.58L, Platelet Count 245, Total Bilirubin 0.3 Results/Orders Lab Results Laboratory Tests Test 07/12/17 21:01 07/12/17 21:31 Range/Units White Blood Count 5.2 4.3-11.0 10^3/uL Red Blood Count 4.36 4.35-5.85 10^6/uL Hemoglobin 13.5 11.5-16.0 G/DL Hematocrit 40 35-52 % Mean Corpuscular Volume 91 80-99 FL Mean Corpuscular Hemoglobin 31 25-34 PG Mean Corpuscular Hemoglobin Concent 34 32-36 G/DL Red Cell Distribution Width 15.3 H 10.0-14.5 % Platelet Count 245 130-400 10^3/uL Mean Platelet Volume 9.7 7.4-10.4 FL Neutrophils (%) (Auto) 65 42-75 % Lymphocytes (%) (Auto) 25 12-44 % Monocytes (%) (Auto) 8 0-12 % Eosinophils (%) (Auto) 2 0-10 % Basophils (%) (Auto) 0 0-10 % Neutrophils # (Auto) 3.4 1.8-7.8 X 10^3 Lymphocytes # (Auto) 1.3 1.0-4.0 X 10^3 Monocytes # (Auto) 0.4 0.0-1.0 X 10^3 Eosinophils # (Auto) 0.1 0.0-0.3 10^3/uL Basophils # (Auto) 0.0 0.0-0.1 10^3/uL Sodium Level 139 135-145 MMOL/L Potassium Level 3.3 L 3.6-5.0 MMOL/L Chloride Level 104 98-107 MMOL/L Carbon Dioxide Level 23 21-32 MMOL/L Anion Gap 12 5-14 MMOL/L Blood Urea Nitrogen 6 L 7-18 MG/DL Creatinine 0.58 L 0.60-1.30 MG/DL Estimat Glomerular Filtration Rate > 60 BUN/Creatinine Ratio 10 Glucose Level 88 70-105 MG/DL Calcium Level 9.0 8.5-10.1 MG/DL Total Bilirubin 0.3 0.1-1.0 MG/DL Aspartate Amino Transf (AST/SGOT) 30 5-34 U/L Alanine Aminotransferase (ALT/SGPT) 23 0-55 U/L Alkaline Phosphatase 97 40-136 U/L Total Protein 6.8 6.4-8.2 GM/DL Albumin 3.6 3.2-4.5 GM/DL Urine Color YELLOW Urine Clarity CLEAR Urine pH 7 5-9 Urine Specific [place] 1.010 L 1.016-1.022 Urine Protein NEGATIVE NEGATIVE Urine Glucose (UA) NEGATIVE NEGATIVE Urine Ketones NEGATIVE NEGATIVE Urine Nitrite NEGATIVE NEGATIVE Urine Bilirubin NEGATIVE NEGATIVE Urine Urobilinogen NORMAL NORMAL MG/DL Urine Leukocyte Esterase 1+ H NEGATIVE Urine RBC (Auto) NEGATIVE NEGATIVE Urine RBC NONE /HPF Urine WBC 0-2 /HPF Urine Squamous Epithelial Cells 5-10 /HPF Urine Crystals NONE /LPF Urine Bacteria NEGATIVE /HPF Urine Casts NONE /LPF Urine Mucus NEGATIVE /LPF Urine Culture Indicated NO My Orders Orders - KAYLA MELENDEZ APRN Ct Abdomen/Pelvis Wo (07/12/17 20:30) Cbc With Automated Diff (07/12/17 20:30) Comprehensive Metabolic Panel (07/12/17 20:30) Ua Culture If Indicated (07/12/17 20:30) Iv Heplock-Insert (Order) (07/12/17 20:30) Morphine Injection (Morphine Injection (07/12/17 20:30) Morphine Injection (Morphine Injection (07/12/17 22:15) Medications Given in ED Current Medications Medications Dose Ordered Sig/Nilda Route Start Time Stop Time Status Last Admin Dose Admin Morphine Sulfate 5 mg ONCE ONCE IVP 07/12/17 20:30 07/12/17 20:31 DC 07/12/17 20:53 5 MG Vital Signs/I&O 07/12/17 20:12 Temp 98.8 Pulse 75 Resp 16 B/P (MAP) 141/96 (111) Pulse Ox 98 O2 Delivery Room Air Capillary Refill : Less Than 3 Seconds Blood Pressure Mean: 111 Diagnostic Imaging Diagonstic Imaging: CT Comments NAME: CLARITA RODRIGUEZ [facility] REC#: [id number] PT STATUS: REG ER : 1965 PHYSICIAN: KAYLA MELENDEZ APRN ADMIT DATE: 07/12/17/ER Draft Date of Exam:07/12/17 CT ABDOMEN/PELVIS WO PROCEDURE: CT abdomen and pelvis without contrast. TECHNIQUE: Multiple contiguous axial images were obtained through the abdomen and pelvis without the use of intravenous contrast. INDICATION: Nausea, vomiting, and diarrhea. History of cholecystectomy and metastatic brain tumor with breast cancer. Comparison with 05/21/2017. The lung bases are clear. Liver appears normal. Gallbladder is absent. Bile ducts are not dilated. Pancreas and spleen are normal. The adrenal glands are normal. Kidneys appear normal without calculi or obstruction. No perinephric fluid. Aorta shows minimal atherosclerotic changes. The stomach and small bowel are not distended. The colon shows normal stool and gas pattern without evidence of constipation. Appendix is not dilated. There is no evidence of diverticulitis. There are no pelvic masses. Uterus is not enlarged. Bladder is normal. No intra-abdominal adenopathy. No free air or free fluid. No bony lesions are seen. IMPRESSION: No acute intra-abdominal findings are demonstrated. Dictated on workstation # [id number] Dict: 07/12/17 2147 Trans: 07/12/17 2151 [facility] [id number] Interpreted by: SUSU TEIXEIRA MD Electronically signed by: Departure Impression Primary Impression: Generalized pain Additional Impression: Metastatic breast cancer Disposition: HOME, SELF-CARE Condition: Stable Departure-Patient Inst. Decision time for Depature: 22:09 Referrals: ABAD MURRAY MD (PCP/Family) Primary Care Physician Patient Instructions: CHRONIC PAIN Add. Discharge Instructions: 1. Return to ER for any concerns KAYLA MELENDEZ [employer] Jul 12, 2017 20:53
[2017-07-12 21:10] LABS: BASOPHILS % (AUTO) 0 % (0-10); EOSINOPHILS # (AUTO) 0.1 10^3/uL (0.0-0.3); EOSINOPHILS % (AUTO) 2 % (0-10); HEMATOCRIT 40 % (35-52); HEMOGLOBIN 13.5 G/DL (11.5-16.0); LYMPHOCYTES # (AUTO) 1.3 X 10^3 (1.0-4.0); LYMPHOCYTES % (AUTO) 25 % (12-44); MEAN CORPUSCULAR HEMOGLOBIN 31 PG (25-34); MEAN CORPUSCULAR HGB CONC 34 G/DL (32-36); MEAN CORPUSCULAR VOLUME 91 FL (80-99); MEAN PLATELET VOLUME 9.7 FL (7.4-10.4); MONOCYTES # (AUTO) 0.4 X 10^3 (0.0-1.0); MONOCYTES % (AUTO) 8 % (0-12); NEUTROPHILS # (AUTO) 3.4 X 10^3 (1.8-7.8); NEUTROPHILS % (AUTO) 65 % (42-75); PLATELET COUNT 245 10^3/uL (130-400); RED BLOOD COUNT 4.36 10^6/uL (4.35-5.85); RED CELL DISTRIBUTION WIDTH 15.3 % (10.0-14.5); WHITE BLOOD COUNT 5.2 10^3/uL (4.3-11.0)
[2017-07-12 21:29] LABS: ALANINE AMINOTRANSFERASE 23 U/L (0-55); ALBUMIN 3.6 GM/DL (3.2-4.5); ALKALINE PHOSPHATASE 97 U/L (40-136); BILIRUBIN,TOTAL 0.3 MG/DL (0.1-1.0); BUN/CREATININE RATIO 10; CARBON DIOXIDE 23 MMOL/L (21-32); CHLORIDE 104 MMOL/L (98-107); CREATININE SERUM 0.58 MG/DL (0.60-1.30); GFR ESTIMATED > 60; GLUCOSE 88 MG/DL (70-105); POTASSIUM 3.3 MMOL/L (3.6-5.0); SODIUM 139 MMOL/L (135-145); TOTAL PROTEIN 6.8 GM/DL (6.4-8.2)
[2017-07-12 21:42] LABS: BILIRUBIN,URINE NEGATIVE (NEGATIVE); CLARITY,URINE CLEAR; COLOR,URINE YELLOW; GLUCOSE, URINE (UA) NEGATIVE (NEGATIVE); KETONES,URINE NEGATIVE (NEGATIVE); LEUKOCYTE ESTERASE ,URINE 1+ (NEGATIVE); NITRITE,URINE NEGATIVE (NEGATIVE); PH,URINE 7 (5-9); PROTEIN,URINE NEGATIVE (NEGATIVE); UROBILINOGEN,URINE NORMAL (NORMAL)
[2017-07-12 21:49] LABS: BACTERIA,URINE NEGATIVE /HPF; WBC,URINE 0-2 /HPF
--- NOTE | 2017-07-12 21:52 | Diagnostic Imaging Report ---
PROCEDURE: CT abdomen and pelvis without contrast. TECHNIQUE: Multiple contiguous axial images were obtained through the abdomen and pelvis without the use of intravenous contrast. INDICATION: Nausea, vomiting, and diarrhea. History of cholecystectomy and metastatic brain tumor with breast cancer. Comparison with 05/21/2017. The lung bases are clear. Liver appears normal. Gallbladder is absent. Bile ducts are not dilated. Pancreas and spleen are normal. The adrenal glands are normal. Kidneys appear normal without calculi or obstruction. No perinephric fluid. Aorta shows minimal atherosclerotic changes. The stomach and small bowel are not distended. The colon shows normal stool and gas pattern without evidence of constipation. Appendix is not dilated. There is no evidence of diverticulitis. There are no pelvic masses. Uterus is not enlarged. Bladder is normal. No intra-abdominal adenopathy. No free air or free fluid. No bony lesions are seen. IMPRESSION: No acute intra-abdominal findings are demonstrated. Dictated by: Dictated on workstation # [id number]
[2017-07-12 22:30] VITALS: BP 141/96
== END 2017-07-12 22:30 | disposition home or self-care (01) ==
LOC: EDUNIT# 20:12 → ER 20:13
DX: R10.84 Generalized abdominal pain (principal); C50.919 Malignant neoplasm of unspecified site of unspecified female breast; C79.31 Secondary malignant neoplasm of brain; J45.909 Unspecified asthma, uncomplicated; E78.00 Pure hypercholesterolemia, unspecified; K21.9 Gastro-esophageal reflux disease without esophagitis; F41.9 Anxiety disorder, unspecified; F31.9 Bipolar disorder, unspecified; M06.9 Rheumatoid arthritis, unspecified; I10 Essential (primary) hypertension; F17.210 Nicotine dependence, cigarettes, uncomplicated; Z90.13 Acquired absence of bilateral breasts and nipples; Z90.89 Acquired absence of other organs; Z87.59 Personal history of other complications of pregnancy, childbirth and the puerperium; Z92.21 Personal history of antineoplastic chemotherapy
CPT/HCPCS: 36415; 74176; 80053; 81000; 85025; 96374; 96376

== ENCOUNTER 2017-07-26 17:31 | Emergency (ER) | payer MEDICARE, MEDICAID ==
[~2017-07-26] VITALS: Ht 165.1 cm; Wt 66.7 kg
[2017-07-26] MEDS ORDERED: morphine INJ 10 MG/ML 1ML (SYR OR VIAL) IVP ONE (17:45)
[2017-07-26 17:46] LABS: BASOPHILS % (AUTO) 0 % (0-10); EOSINOPHILS # (AUTO) 0.1 10^3/uL (0.0-0.3); EOSINOPHILS % (AUTO) 0 % (0-10); HEMATOCRIT 40 % (35-52); HEMOGLOBIN 13.5 G/DL (11.5-16.0); LYMPHOCYTES % (AUTO) 8 % (12-44); MEAN CORPUSCULAR HEMOGLOBIN 31 PG (25-34); MEAN CORPUSCULAR HGB CONC 34 G/DL (32-36); MEAN CORPUSCULAR VOLUME 92 FL (80-99); MEAN PLATELET VOLUME 10.1 FL (7.4-10.4); MONOCYTES # (AUTO) 1.1 X 10^3 (0.0-1.0); MONOCYTES % (AUTO) 4 % (0-12); NEUTROPHILS # (AUTO) 22.1 X 10^3 (1.8-7.8); NEUTROPHILS % (AUTO) 88 % (42-75); PLATELET COUNT 260 10^3/uL (130-400); RED BLOOD COUNT 4.36 10^6/uL (4.35-5.85); WHITE BLOOD COUNT 25.2 10^3/uL (4.3-11.0)
--- NOTE | 2017-07-26 17:57 | ED General ---
General Chief Complaint: General Problems/Pain Stated Complaint: GENERAL PAIN Source of Information: Patient Exam Limitations: No Limitations History of Present Illness Date Seen by Provider: Jul 26, 2017 Time Seen by Provider: 17:40 Initial Comments Patient is a 51-year-old female who presents to the emergency room with complaints of increased pain in her head. She is currently undergoing treatment for breast cancer with metastases to the brain. Patient was recently in the emergency room with a similar complaint last week. She states that she takes morphine at home but it is not controlling her pain. Timing/Duration: Intermittent Modifying Factors: worse with Medication Associated Systoms: Headaches Allergies and Home Medications Allergies Coded Allergies: No Known Drug Allergies (Unverified , 09/27/14) Home Medications Hydrocodone/Acetaminophen 1 Each Tablet, 1 EACH PO PRN PRN for PAIN-SEVERE Prescribed by: KAYLA MELENDEZ on 07/26/17 1833 Morphine Sulfate 15 Mg Tablet.er, 15 MG PO BID PRN for PAIN-BREAKTHROUGH Prescribed by: ZEKE ARCHER on 07/04/17 1118 Morphine Sulfate 15 Mg Tablet.er, 15 MG PO BID Prescribed by: KARLIE ZHU on 07/09/17 1902 Patient Home Medication List Home Medication List Reviewed: Yes Review of Systems Constitutional: see HPI; No chills EENTM: see HPI; No ear discharge, No hearing loss Respiratory: see HPI; No dyspnea on exertion, No short of breath, No wheezing Cardiovascular: see HPI; No chest pain, No edema Gastrointestinal: see HPI; No abdominal pain, No constipation Genitourinary: see HPI; No decreased output Musculoskeletal: see HPI; No back pain, No gout Skin: see HPI; No change in color, No change in hair/nails Psychiatric/Neurological: See HPI, Anxiety, Headache Hematologic/Lymphatic: See HPI; Denies Anemia Immunological/Allergic: see HPI; denies food allergy All Other Systems Reviewed Negative Unless Noted: Yes Past Eowkhjr-Opqrqo-Yudsax Hx Past Med/Social Hx: Reviewed Nursing Past Med/Soc Hx Patient Social History Alcohol Use: Denies Use Recreational Drug Use: No Smoking Status: Current Everyday Smoker Type Used: Cigarettes 2nd Hand Smoke Exposure: Yes Recent Hopitalizations: No Immunizations Up To Date Tetanus Booster (TDap): Unknown Seasonal Allergies Seasonal Allergies: No Past Medical History Surgeries: Yes (INFUSAPORT; BILATERAL MASTECTOMY) Appendectomy, Breast, Section, Gallbladder, Vascular Surgery Respiratory: Yes Asthma Cardiac: Yes High Cholesterol, Hypertension Neurological: Yes (BRAIN METS FROM BREAST CANCER) 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: No (THROUGH MENOPAUSE) Female 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 Sexually Transmitted Disease: No HIV/AIDS: No Genitourinary: No Gastrointestinal: Yes Gastroesophageal Reflux Musculoskeletal: Yes Rheumatoid Arthritis, Chronic Back Pain Endocrine: No HEENT: Yes (TEETH REMOVED) Loss of Vision: Denies Hearing Impairment: Denies Cancer: Yes Skin, Breast Did You Recieve Any Treatments: Yes What Type of Treatment Did You: Chemotherapy, Radiation, Surgical Intervention Psychosocial: Yes Anxiety, Bipolar, Personality Disorder, Depression Integumentary: No Blood Disorders: No Adverse Reaction/Blood Tranf: No (HAS HAD BLOOD TRANSFUSION WITH NO PROBLEM) Family Medical History Reviewed Nursing Family Hx Not obtainable due to adoption (ADOPTION) No Pertinent Family Hx Physical Exam Vital Signs Vital Signs - First Documented 07/26/17 17:53 Temp 98.0 Pulse 91 Resp 18 B/P (MAP) 146/98 (114) Pulse Ox 98 O2 Delivery Room Air Capillary Refill : General Appearance: No Apparent Distress, WD/WN Eyes: Bilateral Eye Normal Inspection, Bilateral Eye PERRL, Bilateral Eye EOMI HEENT: TMs Normal; No Normal ENT Inspection, No Pharynx Normal Neck: Full Range of Motion, Normal Inspection Respiratory: Lungs Clear, Normal Breath Sounds, No Accessory Muscle Use, No Respiratory Distress Cardiovascular: Regular Rate, Rhythm, No Edema, No Murmur, Normal Peripheral Pulses Gastrointestinal: Non Tender, Soft Back: Normal Inspection, No CVA Tenderness, No Vertebral Tenderness Extremity: Non Tender, No Calf Tenderness Neurologic/Psychiatric: Alert, Oriented x3, No Motor/Sensory Deficits, Normal Mood/Affect Skin: Normal Color, Warm/Dry Lymphatic: No Adenopathy Progress/Results/Core Measures Suspected Sepsis SIRS Temperature: Pulse: Respiratory Rate: Laboratory Tests 07/26/17 17:40: White Blood Count 25.2H Blood Pressure / Mean: Laboratory Tests 07/26/17 17:40: Creatinine 0.63, INR Comment 0.9, Platelet Count 260, Total Bilirubin 0.2 Results/Orders Lab Results Laboratory Tests Test 07/26/17 17:40 Range/Units White Blood Count 25.2 H 4.3-11.0 10^3/uL Red Blood Count 4.36 4.35-5.85 10^6/uL Hemoglobin 13.5 11.5-16.0 G/DL Hematocrit 40 35-52 % Mean Corpuscular Volume 92 80-99 FL Mean Corpuscular Hemoglobin 31 25-34 PG Mean Corpuscular Hemoglobin Concent 34 32-36 G/DL Red Cell Distribution Width 15.0 H 10.0-14.5 % Platelet Count 260 130-400 10^3/uL Mean Platelet Volume 10.1 7.4-10.4 FL Neutrophils (%) (Auto) 88 H 42-75 % Lymphocytes (%) (Auto) 8 L 12-44 % Monocytes (%) (Auto) 4 0-12 % Eosinophils (%) (Auto) 0 0-10 % Basophils (%) (Auto) 0 0-10 % Neutrophils # (Auto) 22.1 H 1.8-7.8 X 10^3 Lymphocytes # (Auto) 2.0 1.0-4.0 X 10^3 Monocytes # (Auto) 1.1 H 0.0-1.0 X 10^3 Eosinophils # (Auto) 0.1 0.0-0.3 10^3/uL Basophils # (Auto) 0.0 0.0-0.1 10^3/uL Neutrophils % (Manual) 90 % Lymphocytes % (Manual) 9 % Monocytes % (Manual) 1 % Eosinophils % (Manual) 0 % Basophils % (Manual) 0 % Band Neutrophils 0 % Blood Morphology Comment NORMAL Prothrombin Time 12.5 12.2-14.7 SEC INR Comment 0.9 0.8-1.4 Sodium Level 141 135-145 MMOL/L Potassium Level 3.9 3.6-5.0 MMOL/L Chloride Level 105 98-107 MMOL/L Carbon Dioxide Level 27 21-32 MMOL/L Anion Gap 9 5-14 MMOL/L Blood Urea Nitrogen 7 7-18 MG/DL Creatinine 0.63 0.60-1.30 MG/DL Estimat Glomerular Filtration Rate > 60 BUN/Creatinine Ratio 11 Glucose Level 112 H 70-105 MG/DL Calcium Level 10.1 8.5-10.1 MG/DL Total Bilirubin 0.2 0.1-1.0 MG/DL Aspartate Amino Transf (AST/SGOT) 23 5-34 U/L Alanine Aminotransferase (ALT/SGPT) 15 0-55 U/L Alkaline Phosphatase 64 40-136 U/L Total Protein 7.2 6.4-8.2 GM/DL Albumin 4.0 3.2-4.5 GM/DL My Orders Orders - KAYLA MELENDEZ APRN Cbc With Automated Diff (07/26/17 17:37) Comprehensive Metabolic Panel (07/26/17 17:37) Protime With Inr (07/26/17 17:37) Ct Head Wo (07/26/17 17:37) Morphine Injection (Morphine Injection (07/26/17 17:45) Iv Heplock-Insert (Order) (07/26/17 17:37) Manual Differential (07/26/17 17:40) Hydrocodone/Apap 10/325 Tablet (Lortab 1 (07/26/17 18:30) Medications Given in ED Current Medications Medications Dose Ordered Sig/Nilda Route Start Time Stop Time Status Last Admin Dose Admin Acetaminophen/ Hydrocodone Bitart 1 ea ONCE ONCE PO 07/26/17 18:30 07/26/17 18:31 DC 07/26/17 18:28 1 EA Morphine Sulfate 5 mg ONCE ONCE IVP 07/26/17 17:45 07/26/17 17:46 DC 07/26/17 17:43 5 MG Vital Signs/I&O 07/26/17 17:53 Temp 98.0 Pulse 91 Resp 18 B/P (MAP) 146/98 (114) Pulse Ox 98 O2 Delivery Room Air Capillary Refill : Progress Note : Progress Note Patient reports that she had minimal relief from the morphine injection. .. She reports that the last time she was here they gave her prescription for hydrocodone 10 mg. She reports that she recently ran out but does seem to help her pains in her head. Patient does have a significantly elevated white blood cell count. She is afebrile but does have a subcutaneous "Neupogen pod" that is currently infusing so this would explain the elevated white blood cell count. ECG Initial ECG Impression Date: Jul 26, 2017 Departure Impression Primary Impression: Chronic pain Qualified Codes: G89.4 - Chronic pain syndrome Additional Impression: Breast cancer metastasized to brain Disposition: HOME, SELF-CARE Condition: Stable/Unchanged Departure-Patient Inst. Decision time for Depature: 18:30 Referrals: ABAD MURRAY MD (PCP/Family) Primary Care Physician Patient Instructions: CHRONIC PAIN Add. Discharge Instructions: Take medication as directed. Return back to emergency room for any worsening symptoms or any other concerns as needed. Follow-up with your doctor within 1 week call tomorrow morning for for an appointment time. All discharge instructions reviewed with patient and/or family. Voiced understanding. Scripts Hydrocodone/Acetaminophen (Hydrocodon-Acetaminophn 10-325) 1 Each Tablet 1 EACH PO PRN PRN for PAIN-SEVERE, #10 TAB Prov: KAYLA MELENDEZ APRN 07/26/17 KAYLA MELENDEZ APRN Jul 26, 2017 17:57
[2017-07-26 17:58] LABS: INR 0.9 (0.8-1.4); PROTHROMBIN TIME PATIENT 12.5 SEC (12.2-14.7)
[2017-07-26 18:04] LABS: ALANINE AMINOTRANSFERASE 15 U/L (0-55); ALKALINE PHOSPHATASE 64 U/L (40-136); BILIRUBIN,TOTAL 0.2 MG/DL (0.1-1.0); BUN/CREATININE RATIO 11; CALCIUM 10.1 MG/DL (8.5-10.1); CARBON DIOXIDE 27 MMOL/L (21-32); CHLORIDE 105 MMOL/L (98-107); CREATININE SERUM 0.63 MG/DL (0.60-1.30); GFR ESTIMATED > 60; GLUCOSE 112 MG/DL (70-105); POTASSIUM 3.9 MMOL/L (3.6-5.0); SODIUM 141 MMOL/L (135-145); TOTAL PROTEIN 7.2 GM/DL (6.4-8.2)
[2017-07-26 18:08] LABS: BAND NEUTROPHILS 0 %; BASOPHILS % (MANUAL) 0 %; EOSINOPHILS % (MANUAL) 0 %; LYMPHOCYTES % (MANUAL) 9 %; MONOCYTES % (MANUAL) 1 %; NEUTROPHILS % (MANUAL) 90 %; RBC MORPH NORMAL
--- NOTE | 2017-07-26 18:13 | Diagnostic Imaging Report ---
PROCEDURE: CT head without contrast. TECHNIQUE: Multiple contiguous axial images were obtained through the brain without the use of intravenous contrast. INDICATION: Brain cancer with headache and dizziness. COMPARISON: Comparison is made with a prior head CT from 05/20/2017. FINDINGS: The low-density right frontal lobe lesion appears to be fairly stable in size at 19 mm x 17 mm. Mixed density along the left cerebellar convexity persists and appears to be fairly stable as well. No significant mass effect is seen. Ventricular size is stable. There is no intracranial hemorrhage detected cisterns are patent. The visualized paranasal sinuses are clear. IMPRESSION: Overall stable noncontrast CT of the brain when compared with prior CT from 05/20/2017. Right frontal lobe and left cerebellar abnormalities are stable. No new abnormality is detected. Dictated by: Dictated on workstation # [id number]
[2017-07-26] MEDS ORDERED: HYDROcodone/APAP 10 MG/325 MG (LORTAB) TAB PO ONE (18:30)
[2017-07-26] MEDS ORDERED: HYDR-3820 PO (18:33)
[2017-07-26 18:51] VITALS: BP 144/97
[2017-08-02] MEDS ORDERED: HYOS0.1283 SL (11:53)
[2017-08-02] MEDS ORDERED: HYDR-3820 PO (11:53)
== END 2017-07-26 18:51 | disposition home or self-care (01) ==
LOC: ER 17:31 → EDUNIT# 17:31 → ER 18:51
DX: G89.29 Other chronic pain (principal); R51 Headache; C50.911 Malignant neoplasm of unspecified site of right female breast; C79.31 Secondary malignant neoplasm of brain; E78.00 Pure hypercholesterolemia, unspecified; I10 Essential (primary) hypertension; K21.9 Gastro-esophageal reflux disease without esophagitis; F41.9 Anxiety disorder, unspecified; F31.9 Bipolar disorder, unspecified; F17.210 Nicotine dependence, cigarettes, uncomplicated; Z90.49 Acquired absence of other specified parts of digestive tract; Z87.59 Personal history of other complications of pregnancy, childbirth and the puerperium; Z90.13 Acquired absence of bilateral breasts and nipples
CPT/HCPCS: 36415; 70450; 80053; 85007; 85027; 85610; 96374; 99283

== ENCOUNTER 2017-08-20 09:28 | Emergency (ER) | payer MEDICARE, MEDICAID ==
[~2017-08-20] VITALS: Ht 165.1 cm; Wt 68.0 kg
[~2017-08-20 09:28] MED LIST changes: +DIVA-76 PO; -DIVA500T7 PO
[2017-08-20] MEDS ORDERED: PEGF6SYR SQ (09:46)
--- NOTE | 2017-08-20 09:53 | ED General ---
General Chief Complaint: General Problems/Pain Stated Complaint: NOSE BLEED Nursing Triage Note: PT ARRIVED PER EMS, PT HAS BREAST CA W BRAIN AND IS GETTING CHEMO IN [facility], PT HAS NOSE BLEED FOR APPROX 2-3MIN THIS AM, PT CO OF BILATERAL EAR PAIN AND NECK PAIN AND POPPING. PT IS TEARFUL AT TIMES. Nursing Sepsis Screen: No Definite Risk Source of Information: Patient History of Present Illness Date Seen by Provider: Aug 20, 2017 Time Seen by Provider: 09:50 Initial Comments PT ARRIVES VIA EMS FROM HOME PT STATES SHE HAD A NOSEBLEED THIS AM THAT LASTED 2-3 MINUTES AND "GOT SCARED"-- OCCURRED APPROXIMATELY AN HOUR AGO. HAD JUST FINISHED BREAKFAST AND WENT TO BATHROOM AND NOTICED BLOOD ON HER FACE WHEN SHE LOOKED IN [place] BLEEDING WAS FROM LEFT SIDE NO PAIN, NO INJURY STATES SHE VOMITED 4-5 DAYS AGO AND ALSO HAD A NOSEBLEED FROM LEFT SIDE THAT LASTED 2-3 MINUTES ALSO. DID NOT SEEK CARE AT THE TIME, BUT SAW HER ONCOLOGIST THE NEXT DAY PT ALSO C/O BILATERAL EAR PAIN AND CAN HEAR HER NECK POPPING FOR THE LAST 1 1/2 WEEKS--NO PAIN TO NECK, NO INJURY. 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 NEXT APPOINTMENT IS ON 08/26 FOR [address] GOES TO [address] MARTINES AT [facility]. WAS DX WITH BREAST CANCER 2 YEARS AGO, BRAIN METS DX 9 MONTHS AGO. PT CURRENTLY ON NEULASTA SUB Q PT ALSO ON MORPHINE DAILY PCP: DR. MURRAY Allergies and Home Medications Allergies Coded Allergies: No Known Drug Allergies (Unverified , 09/27/14) Home Medications Morphine Sulfate 15 Mg Tablet.er, 15 MG PO BID PRN for PAIN-BREAKTHROUGH Prescribed by: ZEKE ARCHER on 07/04/17 1118 Morphine Sulfate 15 Mg Tablet.er, 15 MG PO BID Prescribed by: KARLIE ZHU on 07/09/17 1902 Mupirocin Calcium 1 Gm Oint...g., 1 GM NS BID Prescribed by: EMILY MURPHY on 08/20/17 1037 Patient Home Medication List Home Medication List Reviewed: Yes Review of Systems Constitutional: no symptoms reported; No diaphoresis, No dizziness, No fever EENTM: see HPI, epistaxis, other (NO SINUS PAIN. NO RECENT URI/ALLERGY SYMPTOMS ); No nose congestion, No nose pain Respiratory: no symptoms reported Cardiovascular: no symptoms reported Gastrointestinal: see HPI Genitourinary: no symptoms reported Musculoskeletal: see HPI Skin: no symptoms reported Psychiatric/Neurological: No Symptoms Reported Hematologic/Lymphatic: See HPI Immunological/Allergic: see HPI Past Ayivlzz-Ruqeqb-Gcsdzg Hx Patient Social History Alcohol Use: Denies Use Recreational Drug Use: No Smoking Status: Current Everyday Smoker Type Used: Cigarettes 2nd Hand Smoke Exposure: Yes Recent Foreign Travel: No Contact w/Someone Who Travel: No Recent Infectious Disease Expo: No Recent Hopitalizations: No (SEEN IN ED NUMEROUS TIMES) Physical Abuse: No Sexual Abuse: No Immunizations Up To Date Tetanus Booster (TDap): Unknown Seasonal Allergies Seasonal Allergies: No Past Medical History Surgeries: Yes (INFUSAPORT; BILATERAL MASTECTOMY) Appendectomy, Breast, Section, Gallbladder, Vascular Surgery Respiratory: Yes Asthma Cardiac: Yes High Cholesterol, Hypertension Neurological: Yes (BRAIN METS FROM BREAST CANCER) 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: No (THROUGH MENOPAUSE) Female 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 CHECK SCALER History: Menopausal Sexually Transmitted Disease: No HIV/AIDS: No Genitourinary: No Gastrointestinal: Yes Gastroesophageal Reflux Musculoskeletal: Yes Rheumatoid Arthritis, Chronic Back Pain Endocrine: No HEENT: Yes (TEETH REMOVED) Loss of Vision: Denies Hearing Impairment: Denies Cancer: Yes Skin, Breast Did You Recieve Any Treatments: Yes What Type of Treatment Did You: Chemotherapy, Radiation, Surgical Intervention Psychosocial: Yes Anxiety, Bipolar, Personality Disorder, Depression Nursing Suicide Risk Score: 0 Integumentary: No Blood Disorders: Yes (ANEMIA WITH CHEMO) Adverse Reaction/Blood Tranf: No (HAS HAD BLOOD TRANSFUSION WITH NO PROBLEM) Family Medical History Not obtainable due to adoption (ADOPTION) No Pertinent Family Hx Physical Exam Vital Signs Vital Signs - First Documented 08/20/17 09:30 Temp 97.4 Pulse 100 Resp 18 B/P (MAP) 144/97 (113) Pulse Ox 95 Capillary Refill : Less Than 3 Seconds Height, Weight, BMI Height: 5'5.00" Weight: 150lbs. 11.2oz. 68.286301cg; 31.2 BMI Method:Stated General Appearance: No Apparent Distress, Anxious, Other (CRYING/TEARFUL. VERY ANXIOUS. REEKS OF CIGARETTES) HEENT: PERRL/EOMI, TMs Normal, Pharynx Normal, Other (EDENTULOUS. LEFT NARE-- MILD TO MODERATE INFLAMMATION OF LEFT SEPTUM, WITH SUSPECTED RECENT BLEEDING SITE NOTED, BUT NO BLOOD IS PRESENT IN NARES OR POSTERIOR PHARYNX. NO SINUS TENDERNESS. ) Neck: Normal Inspection, Non Tender Respiratory: Normal Breath Sounds, No Accessory Muscle Use, No Respiratory Distress Cardiovascular: Regular Rate, Rhythm, No Edema, No Murmur Neurologic/Psychiatric: Alert, Oriented x3, No Motor/Sensory Deficits, disk sharpener II- XII Norm as Tested Skin: Normal Color, Warm/Dry Progress/Results/Core Measures Suspected Sepsis Recent Fever Within 48 Hours: No Infection Criteria Present: None New/Unexplained Altered Menta: No Sepsis Screen: No Definite Risk SIRS Temperature:97.4 Pulse: 100 Respiratory Rate: 18 Laboratory Tests 08/20/17 10:19: White Blood Count 48.8*H Blood Pressure 144 /97 Mean: 113 Laboratory Tests 08/20/17 10:19: INR Comment 1.0, Platelet Count 124L Results/Orders Lab Results Laboratory Tests Test 08/20/17 10:19 Range/Units White Blood Count 48.8 *H 4.3-11.0 10^3/uL Red Blood Count 4.72 4.35-5.85 10^6/uL Hemoglobin 14.6 11.5-16.0 G/DL Hematocrit 42 35-52 % Mean Corpuscular Volume 89 80-99 FL Mean Corpuscular Hemoglobin 31 25-34 PG Mean Corpuscular Hemoglobin Concent 35 32-36 G/DL Red Cell Distribution Width 15.3 H 10.0-14.5 % Platelet Count 124 L 130-400 10^3/uL Mean Platelet Volume 10.2 7.4-10.4 FL Neutrophils (%) (Auto) 91 H 42-75 % Lymphocytes (%) (Auto) 4 L 12-44 % Monocytes (%) (Auto) 4 0-12 % Eosinophils (%) (Auto) 1 0-10 % Basophils (%) (Auto) 1 0-10 % Neutrophils # (Auto) 44.3 H 1.8-7.8 X 10^3 Lymphocytes # (Auto) 1.9 1.0-4.0 X 10^3 Monocytes # (Auto) 2.0 H 0.0-1.0 X 10^3 Eosinophils # (Auto) 0.3 0.0-0.3 10^3/uL Basophils # (Auto) 0.3 H 0.0-0.1 10^3/uL Prothrombin Time 13.2 12.2-14.7 SEC INR Comment 1.0 0.8-1.4 Activated Partial Thromboplast Time 34 24-35 SEC My Orders Orders - EMILY MURPHY DO Cbc With Automated Diff (08/20/17 10:00) Protime With Inr (08/20/17 10:00) Partial Thromboplastin Time (08/20/17 10:00) Manual Differential (08/20/17 10:19) Vital Signs/I&O 08/20/17 09:30 Temp 97.4 Pulse 100 Resp 18 B/P (MAP) 144/97 (113) Pulse Ox 95 Capillary Refill : Less Than 3 Seconds Blood Pressure Mean: 113 Progress Note : Progress Note NO NOSEBLEED IN ER Departure Impression Primary Impression: LEFT SIDED NOSEBLEED--RESOLVED Additional Impressions: LEFT NASAL SEPTUM INFLAMMATION Breast cancer metastasized to brain CURRENT CHEMOTHERAPY TREATMENT NEULASTA TREATMENT Disposition: 01 HOME, SELF-CARE Condition: Stable Departure-Patient Inst. Referrals: ABAD MURRAY MD (PCP/Family) Primary Care Physician Patient Instructions: Brain Metastases, Nosebleeds (DC), Rinsing Out Your Nose With Salt Water Add. Discharge Instructions: DO NOT RUB OR PICK YOUR NOSE TAKE YOUR MEDICATIONS PRESCRIBED FOLLOW UP WITH YOUR DR ON TUESDAY FOR FURTHER CARE All discharge instructions reviewed with patient and/or family. Voiced understanding. Scripts Mupirocin Calcium (Bactroban Nasal) 1 Gm Oint...g. 1 GM NS BID, #1 TUBE Prov: EMILY MURPHY DO 08/20/17 EMILY MURPHY DO Aug 20, 2017 09:53
[2017-08-20 10:26] LABS: BASOPHILS # (AUTO) 0.3 10^3/uL (0.0-0.1); BASOPHILS % (AUTO) 1 % (0-10); EOSINOPHILS # (AUTO) 0.3 10^3/uL (0.0-0.3); EOSINOPHILS % (AUTO) 1 % (0-10); HEMATOCRIT 42 % (35-52); HEMOGLOBIN 14.6 G/DL (11.5-16.0); LYMPHOCYTES # (AUTO) 1.9 X 10^3 (1.0-4.0); LYMPHOCYTES % (AUTO) 4 % (12-44); MEAN CORPUSCULAR HEMOGLOBIN 31 PG (25-34); MEAN CORPUSCULAR HGB CONC 35 G/DL (32-36); MEAN CORPUSCULAR VOLUME 89 FL (80-99); MEAN PLATELET VOLUME 10.2 FL (7.4-10.4); MONOCYTES % (AUTO) 4 % (0-12); NEUTROPHILS # (AUTO) 44.3 X 10^3 (1.8-7.8); NEUTROPHILS % (AUTO) 91 % (42-75); PLATELET COUNT 124 10^3/uL (130-400); RED BLOOD COUNT 4.72 10^6/uL (4.35-5.85); RED CELL DISTRIBUTION WIDTH 15.3 % (10.0-14.5)
[2017-08-20 10:27] LABS: WHITE BLOOD COUNT 48.8 10^3/uL (4.3-11.0)
[2017-08-20] MEDS ORDERED: MUPI1OIN5 NS (10:37)
[2017-08-20 10:38] LABS: PROTHROMBIN TIME PATIENT 13.2 SEC (12.2-14.7)
[2017-08-20 10:44] VITALS: BP 144/97
[2017-08-20 10:56] LABS: EOSINOPHILS % (MANUAL) 1 %; LYMPHOCYTES % (MANUAL) 3 %; MONOCYTES % (MANUAL) 5 %; NEUTROPHILS % (MANUAL) 91 %
[2017-08-20 10:57] LABS: RBC MORPH NORMAL
--- OUTSIDE RECORDS SUMMARY | 2017-08-21 15:32 | XMS REPORT | Continuity of Care Document ---
Author Author [facility] Organization [facility] Address Unknown Phone Unavailable Allergies Active Description Code Type Severity Reaction Onset Reported/Identified Relationship to Patient Clinical Status Yes No Known Drug Allergies [id number] Drug Allergy Unknown N/A 09/27/2014 Medications There is no data. Problems Date Dx Coded Attending Type Code Diagnosis Diagnosed By 09/27/2014 KARLIE ZHU MD Ot 053.9 HERPES ZOSTER NOS 09/27/2014 KARLIE ZHU MD Ot V68.1 ISSUE REPEAT PRESCRIPT 10/11/2014 REGINALDO ANNA MD Ot 692.6 DERMATITIS DUE TO PLANT 10/11/2014 REGINALDO ANNA MD Ot 782.1 NONSPECIF SKIN ERUPT NEC 11/08/2014 DARÍO BURROWS COMMUNITY ORGANIZER Ot 784.2 11/08/2014 REGINALDO ANNA MD Ot F17.210 NICOTINE DEPENDENCE, CIGARETTES, UNCOMPL 11/08/2014 REGINALDO ANNA MD Ot J44.1 CHRONIC OBSTRUCTIVE PULMONARY DISEASE W 11/08/2014 REGINALDO ANNA MD Ot R06.02 SHORTNESS OF BREATH 11/08/2014 DARÍO BURROWS COMMUNITY ORGANIZER Ot 784.2 11/19/2014 DARÍO BURROWS COMMUNITY ORGANIZER Ot 784.2 11/21/2014 KAYLA MELENDEZ APRN Ot F17.210 NICOTINE DEPENDENCE, CIGARETTES, UNCOMPL 11/21/2014 KAYLA MELENDEZ APRN Ot F41.9 ANXIETY DISORDER, UNSPECIFIED 11/21/2014 KAYLA MELENDEZ APRN Ot J44.1 CHRONIC OBSTRUCTIVE PULMONARY DISEASE W 11/21/2014 KAYLA MELENDEZ APRN Ot R06.02 SHORTNESS OF BREATH 12/19/2014 REGINALDO ANNA MD Ot F17.210 NICOTINE DEPENDENCE, CIGARETTES, UNCOMPL 12/19/2014 REGINALDO ANNA MD Ot J06.9 ACUTE UPPER RESPIRATORY INFECTION, UNSPE 12/19/2014 WILRFIDO MURRAY, REGINALDO Pryor Ot R05 COUGH 12/19/2014 WILFRIDO MURRAY, REGINALDO Pryor Ot R50.9 FEVER, UNSPECIFIED 12/25/2014 KAYLA MELENDEZ COMMUNITY ORGANIZER Ot F17.210 NICOTINE DEPENDENCE, CIGARETTES, UNCOMPL 12/25/2014 KAYLA MELENDEZ COMMUNITY ORGANIZER Ot N64.9 DISORDER OF BREAST, UNSPECIFIED 01/09/2015 DARÍO BURROWS COMMUNITY ORGANIZER Ot N64.4 01/09/2015 DARÍO BURROWS COMMUNITY ORGANIZER Ot N64.4 01/10/2015 STORMY DARÍO You COMMUNITY ORGANIZER Ot N64.4 01/10/2015 ROB BURROWSYARELY Yuo COMMUNITY ORGANIZER Ot N63 01/10/2015 STORMY DARÍO You COMMUNITY ORGANIZER Ot R92.8 01/14/2015 STORMY DARÍO You COMMUNITY ORGANIZER Ot N64.4 01/14/2015 STORMY DARÍO You COMMUNITY ORGANIZER Ot N63 01/14/2015 STORMY DARÍO You COMMUNITY ORGANIZER Ot R92.8 01/17/2015 STORMY DARÍO You COMMUNITY ORGANIZER Ot N64.4 01/17/2015 STORMY DARÍO You COMMUNITY ORGANIZER Ot N63 01/17/2015 STORMY DARÍO You COMMUNITY ORGANIZER Ot R92.8 01/17/2015 MARIA LUZ MURRAY, CAM [...] You (DDU) Ot Z02.71 01/22/2015 DARÍO BURROWS COMMUNITY ORGANIZER Ot N64.4 01/22/2015 DARÍO BURROWS COMMUNITY ORGANIZER Ot N63 01/22/2015 DARÍO BURROWS COMMUNITY ORGANIZER Ot R92.8 01/22/2015 GAMALIEL MURRAY, CEE K [...] MD (DDU) Ot Z02.71 01/24/2015 DARÍO BURROWS COMMUNITY ORGANIZER Ot N64.4 01/24/2015 DARÍO BURROWS COMMUNITY ORGANIZER Ot N63 01/24/2015 DARÍO BURROWS COMMUNITY ORGANIZER Ot R92.8 01/24/2015 GAMALIEL MURRAY, CEE K [...] K Ot R92.8 01/24/2015 KITTY SANDRA S ASSOCIATE PROFESSOR OF CHEMISTRY Ot C50.511 01/24/2015 KITTY SANDRA S ASSOCIATE PROFESSOR OF CHEMISTRY Ot E66.9 01/24/2015 KITTY SANDRA S ASSOCIATE PROFESSOR OF CHEMISTRY Ot E78.5 01/24/2015 KARIN TANGAH S ASSOCIATE PROFESSOR OF CHEMISTRY Ot F17.210 01/24/2015 KITTY SANDRA S ASSOCIATE PROFESSOR OF CHEMISTRY Ot F31.9 01/24/2015 KARIN TANGSINGH S ASSOCIATE PROFESSOR OF CHEMISTRY Ot I10 01/24/2015 KARIN TANGSINGH S ASSOCIATE PROFESSOR OF CHEMISTRY Ot J44.9 01/24/2015 KITTY SANDRA S ASSOCIATE PROFESSOR OF CHEMISTRY Ot Z17.1 01/24/2015 KITTY SANDRA S ASSOCIATE PROFESSOR OF CHEMISTRY Ot Z68.35 01/24/2015 KITTY SANDRA S ASSOCIATE PROFESSOR OF CHEMISTRY Ot Z79.899 01/24/2015 GAMALIEL MURRAY, CEE Pryor Ot R92.8 01/24/2015 KITTY SANDRA S ASSOCIATE PROFESSOR OF CHEMISTRY Ot C50.511 01/24/2015 KARIN TANGSINGH S ASSOCIATE PROFESSOR OF CHEMISTRY Ot E66.9 01/24/2015 KARIN TANGSINGH S ASSOCIATE PROFESSOR OF CHEMISTRY Ot E78.5 01/24/2015 KITTY SANDRA S ASSOCIATE PROFESSOR OF CHEMISTRY Ot F17.210 01/24/2015 KITTY SANDRA S ASSOCIATE PROFESSOR OF CHEMISTRY Ot F31.9 01/24/2015 KITTY SANDRA S ASSOCIATE PROFESSOR OF CHEMISTRY Ot I10 01/24/2015 KARIN TANGSINGH S ASSOCIATE PROFESSOR OF CHEMISTRY Ot J44.9 01/24/2015 KARIN TANGSINGH S ASSOCIATE PROFESSOR OF CHEMISTRY Ot Z17.1 01/24/2015 KARIN TANGSINGH S ASSOCIATE PROFESSOR OF CHEMISTRY Ot Z68.35 01/24/2015 KARIN TANGSINGH S ASSOCIATE PROFESSOR OF CHEMISTRY Ot Z79.899 01/24/2015 GAMALIEL MURRAY, CEE K [...] GAMALIEL MURRAY, CEE Pryor Ot Z68.34 01/24/2015 GAMALEIL MURRAY, CEE Pryor Ot Z79.899 01/24/2015 DARÍO BURROWS COMMUNITY ORGANIZER Ot N63 01/24/2015 DARÍO BURROWS COMMUNITY ORGANIZER Ot R92.8 01/24/2015 DARÍO BURROWS COMMUNITY ORGANIZER Ot N64.4 01/24/2015 SHERRY ROGEL MD (DDU) Ot Z02.71 01/24/2015 DARÍO BURROWS COMMUNITY ORGANIZER Ot N64.4 01/24/2015 DARÍO BURROWS COMMUNITY ORGANIZER Ot N63 01/24/2015 DARÍO BURROWS COMMUNITY ORGANIZER Ot R92.8 01/24/2015 GAMALIEL MURRAY, CEE Konstantin [...] SANDRA TANG Ot C50.511 01/24/2015 SANDRA TANG ASSOCIATE PROFESSOR OF CHEMISTRY Ot E66.9 01/24/2015 SANDRA TANG ASSOCIATE PROFESSOR OF CHEMISTRY Ot E78.5 01/24/2015 SANDRA TANG ASSOCIATE PROFESSOR OF CHEMISTRY Ot F17.210 01/24/2015 SANDRA TANG ASSOCIATE PROFESSOR OF CHEMISTRY Ot F31.9 01/24/2015 SANDRA TANG ASSOCIATE PROFESSOR OF CHEMISTRY Ot I10 01/24/2015 SANDRA TANG ASSOCIATE PROFESSOR OF CHEMISTRY Ot J44.9 01/24/2015 SANDRA TANG S ASSOCIATE PROFESSOR OF CHEMISTRY Ot Z17.1 01/24/2015 SANDRA TANG S ASSOCIATE PROFESSOR OF CHEMISTRY Ot Z68.35 01/24/2015 SANDRA TANG ASSOCIATE PROFESSOR OF CHEMISTRY Ot Z79.899 02/13/2015 GAMALIEL MURRAY, CEE Proyr Ot C50.511 02/13/2015 GAMALIEL MURRAY, CEE Pryor Ot Z51.81 02/13/2015 GAMALIEL MURRAY, CEE Pryor Ot Z79.899 02/13/2015 GAMALIEL MURRAY, CEE Pryor Ot C50.511 02/13/2015 GAMALIEL MURRAY, CEE Pryor Ot Z51.81 02/13/2015 GAMALIEL MURRAY, CEE Pryor Ot Z79.899 02/17/2015 PEBBLES MURRAY, SHERRY You (DDU) Ot Z02.71 02/17/2015 DARÍO BURROWS COMMUNITY ORGANIZER Ot N64.4 02/17/2015 DARÍO BURROWS COMMUNITY ORGANIZER Ot N63 02/17/2015 DARÍO BURROWS COMMUNITY ORGANIZER Ot R92.8 02/17/2015 GAMALIEL MURRAY, CEE Pryor [...] MURRAY, CEE Pryor Ot R92.8 02/17/2015 TANGSANDRA ASSOCIATE PROFESSOR OF CHEMISTRY Ot C50.511 02/17/2015 TANG, SANDRA S ASSOCIATE PROFESSOR OF CHEMISTRY Ot E66.9 02/17/2015 TANG, HILAH S ASSOCIATE PROFESSOR OF CHEMISTRY Ot E78.5 02/17/2015 TANG, HILAH S ASSOCIATE PROFESSOR OF CHEMISTRY Ot F17.210 02/17/2015 TANG, HILAH S ASSOCIATE PROFESSOR OF CHEMISTRY Ot F31.9 02/17/2015 TANG, HILAH S ASSOCIATE PROFESSOR OF CHEMISTRY Ot I10 02/17/2015 TANG, HILAH S ASSOCIATE PROFESSOR OF CHEMISTRY Ot J44.9 02/17/2015 TANG, HILAH S ASSOCIATE PROFESSOR OF CHEMISTRY Ot Z17.1 02/17/2015 KITTY SANDRA S ASSOCIATE PROFESSOR OF CHEMISTRY Ot Z68.35 02/17/2015 KITTYSANDRA S ASSOCIATE PROFESSOR OF CHEMISTRY Ot Z79.899 02/17/2015 GAMALIEL MURRAY, CEE Pryor [...] You (DDU) Ot Z02.71 03/17/2015 DARÍO BURROWS COMMUNITY ORGANIZER Ot N64.4 03/17/2015 DARÍO BURROWS COMMUNITY ORGANIZER Ot N63 03/17/2015 DARÍO BURROWS COMMUNITY ORGANIZER Ot R92.8 03/17/2015 GAMALIEL MURRAY, CEE Pryor [...] CEE Pryor Ot R92.8 03/17/2015 SANDRA TANG ASSOCIATE PROFESSOR OF CHEMISTRY Ot C50.511 03/17/2015 SANDRA TANG S ASSOCIATE PROFESSOR OF CHEMISTRY Ot E66.9 03/17/2015 SANDRA TANG S ASSOCIATE PROFESSOR OF CHEMISTRY Ot E78.5 03/17/2015 KARIN TANGSINGH S ASSOCIATE PROFESSOR OF CHEMISTRY Ot F17.210 03/17/2015 SANDRA TANG S ASSOCIATE PROFESSOR OF CHEMISTRY Ot F31.9 03/17/2015 SANDRA TANG S ASSOCIATE PROFESSOR OF CHEMISTRY Ot I10 03/17/2015 SANDRA TANG S ASSOCIATE PROFESSOR OF CHEMISTRY Ot J44.9 03/17/2015 SANDRA TANG S ASSOCIATE PROFESSOR OF CHEMISTRY Ot Z17.1 03/17/2015 SANDRA TANG S ASSOCIATE PROFESSOR OF CHEMISTRY Ot Z68.35 03/17/2015 SANDRA TANG S ASSOCIATE PROFESSOR OF CHEMISTRY Ot Z79.899 03/17/2015 GAMALIEL MURRAY, CEE Pryor [...] You (DDU) Ot Z02.71 03/20/2015 DARÍO BURROWS COMMUNITY ORGANIZER Ot N64.4 03/20/2015 DARÍO BURROWS COMMUNITY ORGANIZER Ot N63 03/20/2015 DARÍO BURROWS COMMUNITY ORGANIZER Ot R92.8 03/20/2015 GAMALIEL MURRAY, CEE K Ot C50.411 03/20/2015 GAMALIEL MURRAY, CEE K Ot E66.9 03/20/2015 GAMALIEL MURRAY, CEE K Ot E78.5 03/20/2015 GAMALIEL MURRAY, CEE K Ot F17.210 03/20/2015 GAMALIEL MURRAY, CEE K Ot F31.9 03/20/2015 GAMALILE MURRAY, CEE K Ot I10 03/20/2015 GAMALIEL [...] CEE K Ot R92.8 03/20/2015 SANDRA TANG ASSOCIATE PROFESSOR OF CHEMISTRY Ot C50.511 03/20/2015 SANDRA TANG ASSOCIATE PROFESSOR OF CHEMISTRY Ot E66.9 03/20/2015 SANDRA TANG ASSOCIATE PROFESSOR OF CHEMISTRY Ot E78.5 03/20/2015 SANDRA TANG ASSOCIATE PROFESSOR OF CHEMISTRY Ot F17.210 03/20/2015 SANDRA TANG ASSOCIATE PROFESSOR OF CHEMISTRY Ot F31.9 03/20/2015 SANDRA TANG ASSOCIATE PROFESSOR OF CHEMISTRY Ot I10 03/20/2015 SANDRA TANG ASSOCIATE PROFESSOR OF CHEMISTRY Ot J44.9 03/20/2015 SANDRA TANG ASSOCIATE PROFESSOR OF CHEMISTRY Ot Z17.1 03/20/2015 TANG, HILAH S ASSOCIATE PROFESSOR OF CHEMISTRY Ot Z68.35 03/20/2015 KITTY KARINAH S ASSOCIATE PROFESSOR OF CHEMISTRY Ot Z79.899 03/20/2015 GAMALIEL MURRAY, CEE K Ot C50.511 03/20/2015 GAMALIEL MURRAY, CEE K Ot Z51.81 03/20/2015 GAMALIEL MURRAY, CEE Pryor Ot Z79.899 03/20/2015 GAMALIEL MURRAY, CEE K Ot C50.511 03/20/2015 MARIA LUZ MURRAY, CAM M Ot C50.911 03/20/2015 MARIA LUZ MURRAY, CAM M Ot Z01.818 03/20/2015 GAMALIEL MURRAY, CEE K Ot C50.511 03/20/2015 KITTY HILAH S ASSOCIATE PROFESSOR OF CHEMISTRY Ot C50.511 03/20/2015 KARIN TANGAH S ASSOCIATE PROFESSOR OF CHEMISTRY Ot E66.9 03/20/2015 KITTY HILAH S ASSOCIATE PROFESSOR OF CHEMISTRY Ot E78.5 03/20/2015 KARIN TANGAH S ASSOCIATE PROFESSOR OF CHEMISTRY Ot F17.210 03/20/2015 KARIN TANGAH S ASSOCIATE PROFESSOR OF CHEMISTRY Ot F31.9 03/20/2015 SANDRA TANG S ASSOCIATE PROFESSOR OF CHEMISTRY Ot I10 03/20/2015 SANDRA TANG S ASSOCIATE PROFESSOR OF CHEMISTRY Ot J44.9 03/20/2015 SANDRA TANG S ASSOCIATE PROFESSOR OF CHEMISTRY Ot Z17.1 03/20/2015 KARIN TANGAH S ASSOCIATE PROFESSOR OF CHEMISTRY Ot Z68.35 03/20/2015 KITTY KARINAH S ASSOCIATE PROFESSOR OF CHEMISTRY Ot Z79.899 03/20/2015 GAMALIEL MURRAY, CEE K Ot C50.511 03/20/2015 GAMALIEL MURRAY, CEE Proyr Ot Z51.81 03/20/2015 GAMALIEL MURRAY, CEE K Ot Z79.899 03/20/2015 KITTY SANDRA S ASSOCIATE PROFESSOR OF CHEMISTRY Ot C50.511 03/20/2015 KARIN TANGAH S ASSOCIATE PROFESSOR OF CHEMISTRY Ot E66.9 03/20/2015 SANDRA TANG S ASSOCIATE PROFESSOR OF CHEMISTRY Ot E78.5 03/20/2015 KITTY HILAH S ASSOCIATE PROFESSOR OF CHEMISTRY Ot F17.210 03/20/2015 KITTY HILAH S ASSOCIATE PROFESSOR OF CHEMISTRY Ot F31.9 03/20/2015 KARIN TANGAH S ASSOCIATE PROFESSOR OF CHEMISTRY Ot I10 03/20/2015 SANDRA TANG S ASSOCIATE PROFESSOR OF CHEMISTRY Ot J44.9 03/20/2015 SANDRA TANG S ASSOCIATE PROFESSOR OF CHEMISTRY Ot Z17.1 03/20/2015 KITTYSANDRA ASSOCIATE PROFESSOR OF CHEMISTRY Ot Z68.35 03/20/2015 KITTY SANDRA Lazar ASSOCIATE PROFESSOR OF CHEMISTRY Ot Z79.899 03/20/2015 GAMALIEL MURRAY, CEE Konstantin [...] CEE Konstantin Ot Z79.899 03/20/2015 DARÍO BURROWS COMMUNITY ORGANIZER Ot N63 03/20/2015 DARÍO BURROWS COMMUNITY ORGANIZER Ot R92.8 03/20/2015 GAMALIEL MURRAY, CEE Pryor [...] Pryor Ot Z79.899 03/20/2015 BURROWS, DARÍO You COMMUNITY ORGANIZER Ot N63 03/20/2015 BURROWS, DARÍO You COMMUNITY ORGANIZER Ot R92.8 03/20/2015 BURROWS, DARÍO You COMMUNITY ORGANIZER Ot N64.4 03/20/2015 BURROWS, DARÍO A COMMUNITY ORGANIZER Ot 784.2 03/25/2015 GAMALIEL MURRAY, CEE Konstantin Ot C50.511 03/25/2015 GAMALIEL MURRAY, CEE Konstantin Ot C50.511 03/25/2015 GAMALIEL MURRAY, CEE Pryor Ot Z51.81 03/25/2015 GAMALIEL MURRAY, CEE Konstantin Ot Z79.899 03/25/2015 GAMALIEL MURRAY, CEE Konstantin Ot C50.511 03/25/2015 GAMALIEL MURRAY, CEE Konstantin Ot C50.411 03/25/2015 GAMALIEL MURRAY, CEE Pryor Ot Z51.81 03/25/2015 GAMALIEL MURRAY, CEE Pryor Ot Z79.899 03/25/2015 BURROWS, DARÍO You COMMUNITY ORGANIZER Ot N63 03/25/2015 BURROWS, DARÍO A COMMUNITY ORGANIZER Ot R92.8 03/25/2015 BURROWS, DARÍO A COMMUNITY ORGANIZER Ot 784.2 03/31/2015 BURROWS, DARÍO A COMMUNITY ORGANIZER Ot 784.2 03/31/2015 PEBBLES MURRAY, SHERRY You (DDU) Ot Z02.71 03/31/2015 BURROWS, DARÍO A COMMUNITY ORGANIZER Ot N64.4 03/31/2015 BURROWS, DARÍO A COMMUNITY ORGANIZER Ot N63 03/31/2015 BURROWS, DARÍO A COMMUNITY ORGANIZER Ot R92.8 03/31/2015 GAMALIEL MURRAY, CEE Pryor Ot C50.411 03/31/2015 GAMALIEL MURRAY, CEE Pryor Ot E66.9 03/31/2015 GAMALIEL MURRAY, CEE Pryor Ot E78.5 03/31/2015 GAMALIEL MURRAY, CEE Pryor Ot F17.210 03/31/2015 GAMALIEL MURRAY, CEE Proyr Ot F31.9 03/31/2015 GAMALIEL MURRAY, CEE Pryor [...] Pryor Ot R92.8 03/31/2015 KITTY SANDRA S ASSOCIATE PROFESSOR OF CHEMISTRY Ot C50.511 03/31/2015 KITTY HILAH S ASSOCIATE PROFESSOR OF CHEMISTRY Ot E66.9 03/31/2015 KITTY HILAH S ASSOCIATE PROFESSOR OF CHEMISTRY Ot E78.5 03/31/2015 KITTY KARINAH S ASSOCIATE PROFESSOR OF CHEMISTRY Ot F17.210 03/31/2015 KITTY KARINAH S ASSOCIATE PROFESSOR OF CHEMISTRY Ot F31.9 03/31/2015 KITTY SANDRA S ASSOCIATE PROFESSOR OF CHEMISTRY Ot I10 03/31/2015 KITTY SANDRA S ASSOCIATE PROFESSOR OF CHEMISTRY Ot J44.9 03/31/2015 KITTY SANDRA S ASSOCIATE PROFESSOR OF CHEMISTRY Ot Z17.1 03/31/2015 KITTY SANDRA S ASSOCIATE PROFESSOR OF CHEMISTRY Ot Z68.35 03/31/2015 KITTY KARINAH S ASSOCIATE PROFESSOR OF CHEMISTRY Ot Z79.899 03/31/2015 GAMALIEL MURRAY, CEE Pryor Ot C50.511 03/31/2015 GAMALIEL MURRAY, CEE Pryor Ot Z51.81 03/31/2015 GAMALIEL MURRAY, CEE Pryor Ot Z79.899 03/31/2015 GAMALIEL MURRAY, CEE Pryor Ot C50.511 03/31/2015 MARIA LUZ MURRAY, CAM Jara Ot C50.911 03/31/2015 MARIA LUZ MURRAY, CAM M Ot Z01.818 04/04/2015 DARÍO BURROWS COMMUNITY ORGANIZER Ot 784.2 04/04/2015 DARÍO BURROWS COMMUNITY ORGANIZER Ot N64.4 04/04/2015 DARÍO BURROWS COMMUNITY ORGANIZER Ot N63 04/04/2015 DARÍO BURROWS COMMUNITY ORGANIZER Ot R92.8 04/04/2015 GAMALIEL MURRAY, CEE Pryor Ot C50.511 04/04/2015 GAMALIEL MURRAY, CEE K Ot R92.8 04/04/2015 TANGSANDRA Lazar ASSOCIATE PROFESSOR OF CHEMISTRY Ot C50.511 04/04/2015 SANDRA TANG ASSOCIATE PROFESSOR OF CHEMISTRY Ot E66.9 04/04/2015 SANDRA TANG S ASSOCIATE PROFESSOR OF CHEMISTRY Ot E78.5 04/04/2015 SANDRA TANG S ASSOCIATE PROFESSOR OF CHEMISTRY Ot F17.210 04/04/2015 SANDRA TANG S ASSOCIATE PROFESSOR OF CHEMISTRY Ot F31.9 04/04/2015 SANDRA TANG S ASSOCIATE PROFESSOR OF CHEMISTRY Ot I10 04/04/2015 SANDRA TANG S ASSOCIATE PROFESSOR OF CHEMISTRY Ot J44.9 04/04/2015 SANDRA TANG S ASSOCIATE PROFESSOR OF CHEMISTRY Ot Z17.1 04/04/2015 TANGSANDRA aLzar S ASSOCIATE PROFESSOR OF CHEMISTRY Ot Z68.35 04/04/2015 TANGSANDRA Lazar ASSOCIATE PROFESSOR OF CHEMISTRY Ot Z79.899 04/04/2015 GAMALIEL MURRAY, CEE Konstantin Ot C50.511 04/04/2015 GAMALIEL MURRAY, CEE Konstantin Ot Z51.81 04/04/2015 GAMALIEL MURRAY, CEE K Ot Z79.899 04/04/2015 GAMALIEL MURRAY, CEE Pryor Ot C50.511 04/07/2015 DARÍO BURROWS COMMUNITY ORGANIZER Ot 784.2 04/07/2015 PEBBLES MURRAY, SHERRY You (DDU) Ot Z02.71 04/07/2015 DARÍO BURROWS COMMUNITY ORGANIZER Ot N64.4 04/07/2015 DARÍO BURROWS COMMUNITY ORGANIZER Ot N63 04/07/2015 DARÍO BURROWS COMMUNITY ORGANIZER Ot R92.8 04/07/2015 GAMALIEL MURRAY, CEE Konstantin [...] Pryor Ot R92.8 04/07/2015 KITTY SANDRA S ASSOCIATE PROFESSOR OF CHEMISTRY Ot C50.511 04/07/2015 KARIN TANGSINGH S ASSOCIATE PROFESSOR OF CHEMISTRY Ot E66.9 04/07/2015 KITTY SANDRA S ASSOCIATE PROFESSOR OF CHEMISTRY Ot E78.5 04/07/2015 KITTY SANDRA S ASSOCIATE PROFESSOR OF CHEMISTRY Ot F17.210 04/07/2015 KITTY SANDRA S ASSOCIATE PROFESSOR OF CHEMISTRY Ot F31.9 04/07/2015 KITTY SANDRA S ASSOCIATE PROFESSOR OF CHEMISTRY Ot I10 04/07/2015 KITTY SANDRA S ASSOCIATE PROFESSOR OF CHEMISTRY Ot J44.9 04/07/2015 KITTY SANDRA S ASSOCIATE PROFESSOR OF CHEMISTRY Ot Z17.1 04/07/2015 KITTY SANDRA S ASSOCIATE PROFESSOR OF CHEMISTRY Ot Z68.35 04/07/2015 KITTY SANDRA S ASSOCIATE PROFESSOR OF CHEMISTRY Ot Z79.899 04/07/2015 GAMALIEL MURRAY, CEE Pryor [...] GAMALIEL MURRAY, CEE Pryor Ot Z79.899 OTHER [facility] (CURRENT) DRUG THERAPY 04/21/2015 GAMALIEL MURRAY, CEE [...] Pryor Ot F17.210 04/22/2015 GAMALIEL MURRAY, CEE Pryro Ot F31.9 04/22/2015 GAMALIEL MURRAY, CEE Pryor Ot I10 04/22/2015 GAMALIEL MURRAY, CEE Pryor Ot J44.9 04/22/2015 GAMALIEL MURRAY, CEE K Ot Z17.0 04/22/2015 GAMALIEL MURRAY, CEE Pryor Ot Z68.34 04/22/2015 GAMALIEL MURRAY, CEE Pryor Ot Z79.899 04/24/2015 GAMALIEL MURRAY, CEE Pryor Ot C50.511 04/24/2015 GAMALIEL MURRAY, CEE Pryor Ot Z51.81 04/24/2015 GAMALIEL MURRAY, CEE Pryor Ot Z79.899 04/29/2015 SANRDA TANG Ot C50.511 04/29/2015 SANDRA TANG ASSOCIATE PROFESSOR OF CHEMISTRY Ot Z79.899 04/30/2015 GAMALIEL MURRAY, CEE Pryor [...] CEE Pryor Ot Z51.81 06/17/2015 DARÍO BURROWS COMMUNITY ORGANIZER Ot 784.2 SWELLING IN HEAD NECK 06/17/2015 SHERRY ROGEL MD (DDU) Ot Z02.71 ENCOUNTER FOR DISABILITY DETERMINATION 06/17/2015 DARÍO BURROWS COMMUNITY ORGANIZER Ot N64.4 MASTODYNIA 06/17/2015 DARÍO BURROWS COMMUNITY ORGANIZER Ot N63 UNSPECIFIED LUMP IN BREAST 06/17/2015 DARÍO BURROWS APRN Ot R92.8 OTH ABN AND INCONCLUSIVE FINDINGS ON DX 06/17/2015 GAMALIEL MURRAY, CEE Pryor Ot C50.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 06/17/2015 GAMALIEL MURRAY, CEE Pryor Ot Z51.81 ENCOUNTER FOR THERAPEUTIC DRUG LEVEL MON 06/17/2015 CEE ALSTON MD Ot Z79.899 OTHER [facility] (CURRENT) DRUG THERAPY 06/17/2015 CEE ALSTON MD Ot 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 06/17/2015 CEE ALSTON MD Ot R92.8 OTH ABN AND INCONCLUSIVE FINDINGS ON DX 06/17/2015 SANDRA TANG Cady ASSOCIATE PROFESSOR OF CHEMISTRY Ot 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 06/17/2015 SANDRA TANG S ASSOCIATE PROFESSOR OF CHEMISTRY Ot E66.9 OBESITY, UNSPECIFIED 06/17/2015 SANDRA TANG S ASSOCIATE PROFESSOR OF CHEMISTRY Ot E78.5 HYPERLIPIDEMIA, UNSPECIFIED 06/17/2015 KARIN TANGSINGH S ASSOCIATE PROFESSOR OF CHEMISTRY Ot F17.210 NICOTINE DEPENDENCE, CIGARETTES, UNCOMPL 06/17/2015 SANDRA TANG S ASSOCIATE PROFESSOR OF CHEMISTRY Ot F31.9 BIPOLAR DISORDER, UNSPECIFIED 06/17/2015 KARIN TANGSINGH S ASSOCIATE PROFESSOR OF CHEMISTRY Ot I10 ESSENTIAL (PRIMARY) HYPERTENSION 06/17/2015 SANDRA TANG S ASSOCIATE PROFESSOR OF CHEMISTRY Ot J44.9 CHRONIC OBSTRUCTIVE PULMONARY DISEASE, U 06/17/2015 SANDRA TANG S ASSOCIATE PROFESSOR OF CHEMISTRY Ot Z17.1 ESTROGEN RECEPTOR NEGATIVE STATUS [ER-] 06/17/2015 SANDRA TANG S ASSOCIATE PROFESSOR OF CHEMISTRY Ot Z68.35 BODY MASS INDEX (BMI) 35.0-35.9, ADULT 06/17/2015 SANDRA TANG S ASSOCIATE PROFESSOR OF CHEMISTRY Ot Z79.899 OTHER UTILITY ENGINEER (CURRENT) DRUG THERAPY 06/17/2015 CEE ALSTON MD Ot 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 06/17/2015 CEE ALSTON MD Ot Z51.81 ENCOUNTER FOR THERAPEUTIC DRUG LEVEL MON 06/17/2015 CEE ALSTON MD Ot Z79.899 OTHER FDC (CURRENT) DRUG THERAPY 06/17/2015 CEE ALSTON MD [...] 06/17/2015 CEE ALSTON MD Ot Z79.899 OTHER UTILITY ENGINEER (CURRENT) DRUG THERAPY 06/17/2015 SANDRA TANG Ot 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 06/17/2015 SANDRA TANG Ot Z79.899 OTHER UTILITY ENGINEER (CURRENT) DRUG THERAPY 06/17/2015 CEE ALSTON MD [...] 06/17/2015 CEE ALSTON MD Ot Z79.899 OTHER FDC (CURRENT) DRUG THERAPY 06/17/2015 CEE ALSTON MD [...] 07/30/2015 CEE ALSTON MD, Ot Z79.899 OTHER UTILITY ENGINEER (CURRENT) DRUG THERAPY 07/31/2015 CEE ALSTON MD, [...] Z17.0 ESTROGEN RECEPTOR POSITIVE STATUS [ER+] 07/31/2015 ECE ALSTON MD, Ot Z51.11 ENCOUNTER FOR ANTINEOPLASTIC CHEMOTHERAP 07/31/2015 CEE ALSTON MD, Ot Z68.34 BODY MASS INDEX (BMI) 34.0-34.9, ADULT 07/31/2015 CEE ALSTON MD, Ot Z79.899 OTHER UTILITY ENGINEER (CURRENT) DRUG THERAPY 08/05/2015 CEE ALSTON MD, Ot C50.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 08/05/2015 CEE ALSTON MD Ot E66.9 OBESITY, UNSPECIFIED 08/05/2015 CEE ALSTON MD Ot E78.5 HYPERLIPIDEMIA, UNSPECIFIED 08/05/2015 CEE ALSTON MD Ot F17.210 NICOTINE DEPENDENCE, CIGARETTES, UNCOMPL 08/05/2015 CEE ALSTON MD Ot F31.9 BIPOLAR DISORDER, UNSPECIFIED 08/05/2015 CEE ASLTON MD Ot I10 ESSENTIAL (PRIMARY) HYPERTENSION 08/05/2015 CEE ALSTON MD Ot J44.9 CHRONIC OBSTRUCTIVE PULMONARY DISEASE, U 08/05/2015 CEE ALSTON MD Ot Z17.0 ESTROGEN RECEPTOR POSITIVE STATUS [ER+] 08/05/2015 CEE ALSTON MD Ot Z51.11 ENCOUNTER FOR ANTINEOPLASTIC CHEMOTHERAP 08/05/2015 CEE ALSTON MD Ot Z68.34 BODY MASS INDEX (BMI) 34.0-34.9, ADULT 08/05/2015 CEE ALSTON MD Ot Z79.899 OTHER FDC (CURRENT) DRUG THERAPY 01/01/2016 CEE ALSTON MD [...] 01/01/2016 CEE ALSTON MD Ot Z79.899 OTHER UTILITY ENGINEER (CURRENT) DRUG THERAPY 02/16/2016 DARÍO BURROWS COMMUNITY ORGANIZER Ot 784.2 SWELLING IN HEAD NECK 02/16/2016 SHERRY ROGEL MD ([facility]) Ot Z02.71 ENCOUNTER FOR DISABILITY DETERMINATION 02/16/2016 DARÍO BURROWS COMMUNITY ORGANIZER Ot N64.4 MASTODYNIA 02/16/2016 DARÍO BURROWS COMMUNITY ORGANIZER Ot N63 UNSPECIFIED LUMP IN BREAST 02/16/2016 DARÍO BURROWS APRN Ot R92.8 OTH ABN AND INCONCLUSIVE FINDINGS ON DX 02/16/2016 CEE ALSTON MD Ot C50.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 02/16/2016 CEE ALSTON MD Ot Z51.81 ENCOUNTER FOR THERAPEUTIC DRUG LEVEL MON 02/16/2016 CEE ALSTON MD Ot Z79.899 OTHER UTILITY ENGINEER (CURRENT) DRUG THERAPY 02/16/2016 CEE ALSTON MD Ot 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 02/16/2016 CEE ALSTON MD, Ot R92.8 OTH ABN AND INCONCLUSIVE FINDINGS ON DX 02/16/2016 SANDRA TANG ASSOCIATE PROFESSOR OF CHEMISTRY Ot 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 02/16/2016 SANDRA TANG ASSOCIATE PROFESSOR OF CHEMISTRY Ot E66.9 OBESITY, UNSPECIFIED 02/16/2016 SANDRA TANG S ASSOCIATE PROFESSOR OF CHEMISTRY Ot E78.5 HYPERLIPIDEMIA, UNSPECIFIED 02/16/2016 SANDRA TANG ASSOCIATE PROFESSOR OF CHEMISTRY Ot F17.210 NICOTINE DEPENDENCE, CIGARETTES, UNCOMPL 02/16/2016 SANDRA TANG ASSOCIATE PROFESSOR OF CHEMISTRY Ot F31.9 BIPOLAR DISORDER, UNSPECIFIED 02/16/2016 SANDRA TANG S ASSOCIATE PROFESSOR OF CHEMISTRY Ot I10 ESSENTIAL (PRIMARY) HYPERTENSION 02/16/2016 SANDRA TANG ASSOCIATE PROFESSOR OF CHEMISTRY Ot J44.9 CHRONIC OBSTRUCTIVE PULMONARY DISEASE, U 02/16/2016 SANDRA TANG S ASSOCIATE PROFESSOR OF CHEMISTRY Ot Z17.1 ESTROGEN RECEPTOR NEGATIVE STATUS [ER-] 02/16/2016 SANDRA TANG ASSOCIATE PROFESSOR OF CHEMISTRY Ot Z68.35 BODY MASS INDEX (BMI) 35.0-35.9, ADULT 02/16/2016 SANDRA TANG ASSOCIATE PROFESSOR OF CHEMISTRY Ot Z79.899 OTHER FDC (CURRENT) DRUG THERAPY 02/16/2016 CEE ALSTON MD Ot 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 02/16/2016 CEE ALSTON MD Ot Z51.81 ENCOUNTER FOR THERAPEUTIC DRUG LEVEL MON 02/16/2016 CEE ALSTON MD Ot Z79.899 OTHER UTILITY ENGINEER (CURRENT) DRUG THERAPY 02/16/2016 CEE ALSTON MD [...] GAMALIEL MURRAY CEE Konstantin Ot Z79.899 OTHER FDC (CURRENT) DRUG THERAPY 02/16/2016 SANDRA TANG Ot 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2 SWELLING IN HEAD NECK 02/16/2016 SHERRY ROGEL MD ([facility]) Ot Z02.71 ENCOUNTER FOR DISABILITY [...] 02/16/2016 CEE ALSTON MD Ot Z79.899 OTHER UTILITY ENGINEER (CURRENT) DRUG THERAPY 02/16/2016 CEE ALSTON MD Ot 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 02/16/2016 CEE ALSTON MD Ot R92.8 OTH ABN AND INCONCLUSIVE FINDINGS ON DX 02/16/2016 SANDRA TANG ASSOCIATE PROFESSOR OF CHEMISTRY Ot 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 02/16/2016 SANDRA TANG S ASSOCIATE PROFESSOR OF CHEMISTRY Ot E66.9 OBESITY, UNSPECIFIED 02/16/2016 SANDRA TANG S ASSOCIATE PROFESSOR OF CHEMISTRY Ot E78.5 HYPERLIPIDEMIA, UNSPECIFIED 02/16/2016 SANDRA TANG S ASSOCIATE PROFESSOR OF CHEMISTRY Ot F17.210 NICOTINE DEPENDENCE, CIGARETTES, UNCOMPL 02/16/2016 SANDRA TANG S ASSOCIATE PROFESSOR OF CHEMISTRY Ot F31.9 BIPOLAR DISORDER, UNSPECIFIED 02/16/2016 SANDRA TANG S ASSOCIATE PROFESSOR OF CHEMISTRY Ot I10 ESSENTIAL (PRIMARY) HYPERTENSION 02/16/2016 SANDRA TANG ASSOCIATE PROFESSOR OF CHEMISTRY Ot J44.9 CHRONIC OBSTRUCTIVE PULMONARY DISEASE, U 02/16/2016 SANDRA TANG S ASSOCIATE PROFESSOR OF CHEMISTRY Ot Z17.1 ESTROGEN RECEPTOR NEGATIVE STATUS [ER-] 02/16/2016 SANDRA TANG S ASSOCIATE PROFESSOR OF CHEMISTRY Ot Z68.35 BODY MASS INDEX (BMI) 35.0-35.9, ADULT 02/16/2016 SANDRA TANG S ASSOCIATE PROFESSOR OF CHEMISTRY Ot Z79.899 OTHER UTILITY ENGINEER (CURRENT) DRUG THERAPY 02/16/2016 CEE ALSTON MD Ot 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 02/16/2016 CEE ALSTON MD Ot Z51.81 ENCOUNTER FOR THERAPEUTIC DRUG LEVEL MON 02/16/2016 CEE ALSTON MD Ot Z79.899 OTHER UTILITY ENGINEER (CURRENT) DRUG THERAPY 02/16/2016 CEE ALSTON MD [...] 02/16/2016 CEE ALSTON MD Ot Z79.899 OTHER UTILITY ENGINEER (CURRENT) DRUG THERAPY 02/16/2016 SANDRA TANG Ot 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 02/16/2016 SANDRA TANG Ot Z79.899 OTHER FDC (CURRENT) DRUG THERAPY 02/16/2016 CEE ALSTON MD [...] Ot I10 ESSENTIAL (PRIMARY) HYPERTENSION 02/16/2016 EULOGIO BRGAA MD Ot J44.9 CHRONIC OBSTRUCTIVE PULMONARY DISEASE, U 02/16/2016 EULOGIO BRAGA MD Ot Z17.0 ESTROGEN RECEPTOR POSITIVE STATUS [ER+] 02/16/2016 EULOGIO BRAGA MD Ot Z68.34 BODY MASS INDEX (BMI) 34.0-34.9, ADULT 02/16/2016 EULOGIO BRAGA MD Ot Z79.899 OTHER UTILITY ENGINEER (CURRENT) DRUG THERAPY 02/16/2016 EDIL QURESHI Ot F17.210 NICOTINE DEPENDENCE, CIGARETTES, UNCOMPL 02/16/2016 EDIL QURESHI Ot F41.9 ANXIETY DISORDER, UNSPECIFIED 02/16/2016 EDIL QURESHI Ot I10 ESSENTIAL (PRIMARY) HYPERTENSION 02/16/2016 EDIL QURESHI Ot Z95.9 PRESENCE OF CARDIAC AND VASCULAR IMPLANT 02/16/2016 DARÍO BURROWS APRN Ot 784.2 SWELLING IN HEAD NECK 02/16/2016 SHERRY ROGEL MD ([facility]) Ot Z02.71 ENCOUNTER FOR DISABILITY DETERMINATION 02/16/2016 DARÍO BURROWS COMMUNITY ORGANIZER Ot N64.4 MASTODYNIA 02/16/2016 DARÍO BURROWS COMMUNITY ORGANIZER Ot N63 UNSPECIFIED LUMP IN BREAST 02/16/2016 DARÍO BURROWS APRN Ot R92.8 OTH ABN AND INCONCLUSIVE FINDINGS ON DX 02/16/2016 CEE ALSTON MD Ot C50.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 02/16/2016 CEE ALSTON MD Ot Z51.81 ENCOUNTER FOR THERAPEUTIC DRUG LEVEL MON 02/16/2016 CEE ALSTON MD Ot Z79.899 OTHER UTILITY ENGINEER (CURRENT) DRUG THERAPY 02/16/2016 CEE ALSTON MD Ot 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 02/16/2016 CEE ALSTON MD Ot R92.8 OTH ABN AND INCONCLUSIVE FINDINGS ON DX 02/16/2016 SANDRA TANG Ot 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 02/16/2016 SANDRA TANG Ot E66.9 OBESITY, UNSPECIFIED 02/16/2016 SANDRA TANGP Ot E78.5 HYPERLIPIDEMIA, UNSPECIFIED 02/16/2016 SANRDA TANG Ot F17.210 NICOTINE DEPENDENCE, CIGARETTES, UNCOMPL 02/16/2016 SANDRA TANG Ot F31.9 BIPOLAR DISORDER, UNSPECIFIED 02/16/2016 SANDRA TANGP Ot I10 ESSENTIAL (PRIMARY) HYPERTENSION 02/16/2016 SANDRA TANG Ot J44.9 CHRONIC OBSTRUCTIVE PULMONARY DISEASE, U 02/16/2016 SANDRA TANG Ot Z17.1 ESTROGEN RECEPTOR NEGATIVE STATUS [ER-] 02/16/2016 SANDRA TANG Ot Z68.35 BODY MASS INDEX (BMI) 35.0-35.9, ADULT 02/16/2016 SANDRA TANG Ot Z79.899 OTHER FDC (CURRENT) DRUG THERAPY 02/16/2016 CEE ALSTON MD Ot 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 02/16/2016 CEE ALSTON MD Ot Z51.81 ENCOUNTER FOR THERAPEUTIC DRUG LEVEL MON 02/16/2016 CEE ALSTON MD Ot Z79.899 OTHER UTILITY ENGINEER (CURRENT) DRUG THERAPY 02/16/2016 CEE ALSTON MD [...] 02/16/2016 CEE ALSTON MD Ot Z79.899 OTHER UTILITY ENGINEER (CURRENT) DRUG THERAPY 02/16/2016 SANDRA TANG Ot 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 02/16/2016 SANDRA TANG Ot Z79.899 OTHER FDC (CURRENT) DRUG THERAPY 02/16/2016 CEE ALSTON MD [...] 02/16/2016 EULOGIO BRAGA MD, Ot Z79.899 OTHER UTILITY ENGINEER (CURRENT) DRUG THERAPY 02/17/2016 EDIL QURESHI Ot [...] 03/01/2016 CEE ALSTON MD Ot Z79.899 OTHER UTILITY ENGINEER (CURRENT) DRUG THERAPY 03/01/2016 CEE ALSTON MD Ot 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 03/01/2016 CEE ALSTON MD Ot R92.8 OTH ABN AND INCONCLUSIVE FINDINGS ON DX 03/01/2016 SANDRA TANG Ot 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 03/01/2016 SANDRA TANG Ot E66.9 OBESITY, UNSPECIFIED 03/01/2016 SANDRA TANG ASSOCIATE PROFESSOR OF CHEMISTRY Ot E78.5 HYPERLIPIDEMIA, UNSPECIFIED 03/01/2016 SANDRA TANG ASSOCIATE PROFESSOR OF CHEMISTRY Ot F17.210 NICOTINE DEPENDENCE, CIGARETTES, UNCOMPL 03/01/2016 SANDRA TANG ASSOCIATE PROFESSOR OF CHEMISTRY Ot F31.9 BIPOLAR DISORDER, UNSPECIFIED 03/01/2016 SANDRA TANG ASSOCIATE PROFESSOR OF CHEMISTRY Ot I10 ESSENTIAL (PRIMARY) HYPERTENSION 03/01/2016 SANDRA TANGP Ot J44.9 CHRONIC OBSTRUCTIVE PULMONARY DISEASE, U 03/01/2016 SANDRA TANG ASSOCIATE PROFESSOR OF CHEMISTRY Ot Z17.1 ESTROGEN RECEPTOR NEGATIVE STATUS [ER-] 03/01/2016 SANDRA TANG ASSOCIATE PROFESSOR OF CHEMISTRY Ot Z68.35 BODY MASS INDEX (BMI) 35.0-35.9, ADULT 03/01/2016 SANDRA TANGP Ot Z79.899 OTHER FDC (CURRENT) DRUG THERAPY 03/01/2016 CEE ALSTON MD Ot 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 03/01/2016 CEE ALSTON MD Ot Z51.81 ENCOUNTER FOR THERAPEUTIC DRUG LEVEL MON 03/01/2016 CEE ALSTON MD Ot Z79.899 OTHER UTILITY ENGINEER (CURRENT) DRUG THERAPY 03/01/2016 CEE ALSTON MD Ot C50.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 03/01/2016 MARIA LUZ MURRAY, CMA Jara Ot C50.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 03/01/2016 MARIA LUZ MURRAY, CAM Jara Ot Z01.818 ENCOUNTER FOR OTHER PREPROCEDURAL EXAMIN 03/01/2016 CEE ALSTON MD Ot C50.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 03/01/2016 CEE ALSTON MD Ot Z51.81 ENCOUNTER FOR THERAPEUTIC DRUG LEVEL MON 03/01/2016 CEE ALSTON MD Ot Z79.899 OTHER UTILITY ENGINEER (CURRENT) DRUG THERAPY 03/01/2016 SANDRA TANG Ot C50.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 03/01/2016 SANDRA ATNG Ot Z79.899 OTHER UTILITY ENGINEER (CURRENT) DRUG THERAPY 03/01/2016 CEE ALSTON MD Ot 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 03/01/2016 CEE ALSTON MD Ot Z51.81 ENCOUNTER FOR THERAPEUTIC DRUG LEVEL MON 03/01/2016 DARÍO BURROWS COMMUNITY ORGANIZER Ot 784.2 SWELLING IN HEAD NECK 03/01/2016 SHERRY ROGEL MD ([facility]) Ot Z02.71 ENCOUNTER FOR DISABILITY DETERMINATION 03/01/2016 DARÍO BURROWS COMMUNITY ORGANIZER Ot N64.4 MASTODYNIA 03/01/2016 DARÍO BURROWS COMMUNITY ORGANIZER Ot N63 UNSPECIFIED LUMP IN BREAST 03/01/2016 DARÍO BURROWS COMMUNITY ORGANIZER Ot R92.8 OTH ABN AND INCONCLUSIVE FINDINGS ON DX 03/01/2016 CEE ALSTON MD Ot C50.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 03/01/2016 CEE ALSTON MD Ot Z51.81 ENCOUNTER FOR THERAPEUTIC DRUG LEVEL MON 03/01/2016 CEE ALSTON MD Ot Z79.899 OTHER UTILITY ENGINEER (CURRENT) DRUG THERAPY 03/01/2016 CEE ALSTON MD [...] ADULT 03/01/2016 SANDRA TANG Ot Z79.899 OTHER FDC (CURRENT) DRUG THERAPY 03/01/2016 CEE ALSTON MD Ot 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 03/01/2016 CEE ALSTON MD Ot Z51.81 ENCOUNTER FOR THERAPEUTIC DRUG LEVEL MON 03/01/2016 CEE ALSTON MD Ot Z79.899 OTHER FDC (CURRENT) DRUG THERAPY 03/01/2016 CEE ALSTON MD [...] 03/01/2016 CEE ALSTON MD Ot Z79.899 OTHER UTILITY ENGINEER (CURRENT) DRUG THERAPY 03/01/2016 SANDRA TANG Ot 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 03/01/2016 SANDRA TANG Ot Z79.899 OTHER UTILITY ENGINEER (CURRENT) DRUG THERAPY 03/01/2016 CEE ALSTON MD [...] MON 03/02/2016 ADE FOWLER Ot Z79.899 OTHER UTILITY ENGINEER (CURRENT) DRUG THERAPY 03/02/2016 ADE FOWLER Ot Z51.81 ENCOUNTER FOR THERAPEUTIC DRUG LEVEL MON 03/02/2016 ADE FOWLER Ot Z79.899 OTHER FDC (CURRENT) DRUG THERAPY 03/04/2016 ADE FOWLER Ot Z51.81 ENCOUNTER FOR THERAPEUTIC DRUG LEVEL MON 03/04/2016 ADE FOWLER Ot Z79.899 OTHER FDC (CURRENT) DRUG THERAPY 03/04/2016 KAYLA MELENDEZ APRN Ot C50.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 03/04/2016 KAYLA MELENDEZ APRN Ot F17.210 NICOTINE DEPENDENCE, CIGARETTES, UNCOMPL 03/04/2016 KAYLA MELENDEZ COMMUNITY ORGANIZER Ot I10 ESSENTIAL (PRIMARY) HYPERTENSION 03/04/2016 KAYLA MELENDEZ APRN Ot J44.9 CHRONIC OBSTRUCTIVE PULMONARY DISEASE, U 03/04/2016 KAYLA MELENDEZ APRN Ot N61.0 MASTITIS WITHOUT ABSCESS 03/04/2016 KAYLA MELENDEZ APRN Ot Z79.899 OTHER UTILITY ENGINEER (CURRENT) DRUG THERAPY 03/04/2016 KAYLA MELENDEZ APRN [...] 03/05/2016 KAYLA MELENDEZ APRN Ot Z79.899 OTHER UTILITY ENGINEER (CURRENT) DRUG THERAPY 03/05/2016 KAYLA MELENDEZ APRN Ot Z90.11 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 03/07/2016 ADE FOWLER Ot Z51.81 ENCOUNTER FOR THERAPEUTIC DRUG LEVEL MON 03/07/2016 ADE FOWLER Ot Z79.899 OTHER FDC (CURRENT) DRUG THERAPY 03/18/2016 ADE FOWLER Ot Z51.81 ENCOUNTER FOR THERAPEUTIC DRUG LEVEL MON 03/18/2016 ADE FOWLER Ot Z79.899 OTHER FDC (CURRENT) DRUG THERAPY 04/19/2016 DARÍO BURROWS COMMUNITY ORGANIZER Ot 784.2 SWELLING IN HEAD NECK 04/19/2016 SHERRY ROGEL MD ([facility]) Ot Z02.71 ENCOUNTER FOR DISABILITY DETERMINATION 04/19/2016 BURROWSDARÍO Avelino COMMUNITY ORGANIZER Ot N64.4 MASTODYNIA 04/19/2016 DARÍO BURROWS COMMUNITY ORGANIZER Ot N63 UNSPECIFIED LUMP IN BREAST 04/19/2016 ROB BURROWSFER Avelino COMMUNITY ORGANIZER Ot R92.8 OTH ABN AND INCONCLUSIVE FINDINGS ON DX 04/19/2016 CEE ALSTON MD Ot C50.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 04/19/2016 CEE ALSTON MD Ot Z51.81 ENCOUNTER FOR THERAPEUTIC DRUG LEVEL MON 04/19/2016 CEE ALSTON MD Ot Z79.899 OTHER FDC (CURRENT) DRUG THERAPY 04/19/2016 CEE ALSTON MD, Ot C50.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 04/19/2016 CEE ALSTON MD Ot R92.8 OTH ABN AND INCONCLUSIVE FINDINGS ON DX 04/19/2016 SANDRA TANGP Ot 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 04/19/2016 SANDRA TANG ASSOCIATE PROFESSOR OF CHEMISTRY Ot E66.9 OBESITY, UNSPECIFIED 04/19/2016 SANDRA TANGP Ot E78.5 HYPERLIPIDEMIA, UNSPECIFIED 04/19/2016 SANDRA TANG ASSOCIATE PROFESSOR OF CHEMISTRY Ot F17.210 NICOTINE DEPENDENCE, CIGARETTES, UNCOMPL 04/19/2016 SANDRA TANG ASSOCIATE PROFESSOR OF CHEMISTRY Ot F31.9 BIPOLAR DISORDER, UNSPECIFIED 04/19/2016 SANDRA TANGP Ot I10 ESSENTIAL (PRIMARY) HYPERTENSION 04/19/2016 SANDRA TANGP Ot J44.9 CHRONIC OBSTRUCTIVE PULMONARY DISEASE, U 04/19/2016 SANDRA TANGP Ot Z17.1 ESTROGEN RECEPTOR NEGATIVE STATUS [ER-] 04/19/2016 SANDRA TANGP Ot Z68.35 BODY MASS INDEX (BMI) 35.0-35.9, ADULT 04/19/2016 SANDRA TANG ASSOCIATE PROFESSOR OF CHEMISTRY Ot Z79.899 OTHER FDC (CURRENT) DRUG THERAPY 04/19/2016 CEE ALSTON MD Ot 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 04/19/2016 CEE ALSTON MD Ot Z51.81 ENCOUNTER FOR THERAPEUTIC DRUG LEVEL MON 04/19/2016 CEE ALSTON MD Ot Z79.899 OTHER UTILITY ENGINEER (CURRENT) DRUG THERAPY 04/19/2016 CEE ALSTON MD [...] 04/19/2016 CEE ALSTON MD Ot Z79.899 OTHER FDC (CURRENT) DRUG THERAPY 04/19/2016 SANDRA TANG Ot 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 04/19/2016 SANDRA TANG Ot Z79.899 OTHER UTILITY ENGINEER (CURRENT) DRUG THERAPY 04/19/2016 CEE ALSTON MD [...] 05/06/2016 OMI MURRAY, EULOGIO Ot Z79.899 OTHER FDC (CURRENT) DRUG THERAPY 05/06/2016 STORMY DARÍO A COMMUNITY ORGANIZER Ot 784.2 SWELLING IN HEAD NECK 05/06/2016 PEBBLES MURRAY, SHERRY You (U) Ot Z02.71 ENCOUNTER FOR DISABILITY DETERMINATION 05/06/2016 DARÍO BURROWS COMMUNITY ORGANIZER Ot N64.4 MASTODYNIA 05/06/2016 DARÍO BURROWS COMMUNITY ORGANIZER Ot N63 UNSPECIFIED LUMP IN BREAST 05/06/2016 DARÍO BURROWS COMMUNITY ORGANIZER Ot R92.8 OTH ABN AND INCONCLUSIVE FINDINGS ON DX 05/06/2016 CEE ALSTON MD Ot C50.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 05/06/2016 CEE ALSTON MD Ot Z51.81 ENCOUNTER FOR THERAPEUTIC DRUG LEVEL MON 05/06/2016 CEE ALSTON MD Ot Z79.899 OTHER UTILITY ENGINEER (CURRENT) DRUG THERAPY 05/06/2016 CEE ALSTON MD Ot 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 05/06/2016 CEE ALSTON MD Ot R92.8 OTH ABN AND INCONCLUSIVE FINDINGS ON DX 05/06/2016 SANDRA TANG Ot C50.511 MALIG NEOPLM OF LOWER-OUTER QUADRANT OF 05/06/2016 SANDRA TANG ASSOCIATE PROFESSOR OF CHEMISTRY Ot E66.9 OBESITY, UNSPECIFIED 05/06/2016 SANDRA TANG ASSOCIATE PROFESSOR OF CHEMISTRY Ot E78.5 HYPERLIPIDEMIA, UNSPECIFIED 05/06/2016 SANDRA TANG ASSOCIATE PROFESSOR OF CHEMISTRY Ot F17.210 NICOTINE DEPENDENCE, CIGARETTES, UNCOMPL 05/06/2016 SANDRA TANG ASSOCIATE PROFESSOR OF CHEMISTRY Ot F31.9 BIPOLAR DISORDER, UNSPECIFIED 05/06/2016 SANDRA TANG ASSOCIATE PROFESSOR OF CHEMISTRY Ot I10 ESSENTIAL (PRIMARY) HYPERTENSION 05/06/2016 SANDRA TANGP Ot J44.9 CHRONIC OBSTRUCTIVE PULMONARY DISEASE, U 05/06/2016 SANDRA TANG ASSOCIATE PROFESSOR OF CHEMISTRY Ot Z17.1 ESTROGEN RECEPTOR NEGATIVE STATUS [ER-] 05/06/2016 SANDRA TANG ASSOCIATE PROFESSOR OF CHEMISTRY Ot Z68.35 BODY MASS INDEX (BMI) 35.0-35.9, ADULT 05/06/2016 SANDRA TANG ASSOCIATE PROFESSOR OF CHEMISTRY Ot Z79.899 OTHER UTILITY ENGINEER (CURRENT) DRUG THERAPY 05/06/2016 CEE ALSTON MD Ot C50.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 05/06/2016 CEE ALSTON MD Ot Z51.81 ENCOUNTER FOR THERAPEUTIC DRUG LEVEL MON 05/06/2016 CEE ALSTON MD Ot Z79.899 OTHER UTILITY ENGINEER (CURRENT) DRUG THERAPY 05/06/2016 CEE ALSTON MD [...] 05/06/2016 CEE ALSTON MD Ot Z79.899 OTHER UTILITY ENGINEER (CURRENT) DRUG THERAPY 05/06/2016 SANDRA TANG ASSOCIATE PROFESSOR OF CHEMISTRY Ot 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 05/06/2016 SANDRA TANG Ot Z79.899 OTHER UTILITY ENGINEER (CURRENT) DRUG THERAPY 05/06/2016 CEE ALSTON MD [...] 05/06/2016 EULOGIO BRAGA MD, Ot Z79.899 OTHER UTILITY ENGINEER (CURRENT) DRUG THERAPY 05/24/2016 ADE FOWLER Ot Z51.81 ENCOUNTER FOR THERAPEUTIC DRUG LEVEL MON 05/24/2016 ADE FOWLER Ot Z79.899 OTHER UTILITY ENGINEER (CURRENT) DRUG THERAPY 05/25/2016 EULOGIO BRAGA MD, [...] 05/25/2016 EULOGIO BRAGA MD, Ot Z79.899 OTHER FDC (CURRENT) DRUG THERAPY 05/25/2016 ABAD MURRAY MD, [...] LEVEL MON 05/26/2016 JANETHADE Ot Z79.899 OTHER FDC (CURRENT) DRUG THERAPY 05/26/2016 KARLIE ZHU MD [...] 05/26/2016 KARLIE ZHU MD Ot Z79.899 OTHER FDC (CURRENT) DRUG THERAPY 05/26/2016 KARLIE ZHU MD [...] 05/27/2016 KARLIE ZHU MD Ot Z79.899 OTHER FDC (CURRENT) DRUG THERAPY 05/27/2016 KARLIE ZHU MD [...] 06/28/2016 YANG ELKINS MD Ot Z79.899 OTHER FDC (CURRENT) DRUG THERAPY 06/28/2016 YANG ELKINS MD [...] 07/19/2016 EULOGIO BRAGA MD, Ot Z79.899 OTHER UTILITY ENGINEER (CURRENT) DRUG THERAPY 07/21/2016 XUN MD, PIRES-DENEEN [...] 07/21/2016 EULOGIO BRAGA MD Ot Z79.899 OTHER UTILITY ENGINEER (CURRENT) DRUG THERAPY 08/23/2016 EULOGIO BRAGA MD [...] 08/23/2016 EULOGIO BRAGA MD Ot Z79.899 OTHER UTILITY ENGINEER (CURRENT) DRUG THERAPY 10/18/2016 EULOGIO BRAGA MD [...] 10/18/2016 EULOGIO BRAGA MD Ot Z79.899 OTHER FDC (CURRENT) DRUG THERAPY 12/29/2016 ADE FOWLER Ot Z51.81 ENCOUNTER FOR THERAPEUTIC DRUG LEVEL [facility] 12/29/2016 ADE FOWLER Ot Z79.899 OTHER FDC (CURRENT) DRUG THERAPY 12/29/2016 EULOGIO BRAGA MD [...] 12/29/2016 EULOGIO BRAGA MD Ot Z79.899 OTHER FDC (CURRENT) DRUG THERAPY 12/29/2016 JEFFREY BALL EMILY [...] 01/03/2017 EULOGIO BRAGA MD Ot Z79.899 OTHER UTILITY ENGINEER (CURRENT) DRUG THERAPY 01/07/2017 KAYLA MELENDEZ APRN [...] 01/21/2017 EULOGIO BRAGA MD, Ot Z79.899 OTHER FDC (CURRENT) DRUG THERAPY 03/27/2017 KARLIE ZHU MD [...] HEADACHE 03/27/2017 KARLIE ZHU MD, Ot Z79.52 FDC (CURRENT) USE OF SYSTEMIC STER 03/27/2017 KARLIE [...] 03/29/2017 EULOGIO BRAGA MD, Ot Z79.899 OTHER FDC (CURRENT) DRUG THERAPY 03/29/2017 MARKO MD, KARLIE [...] HEADACHE 03/29/2017 KARLIE ZHU MD, Ot Z79.52 FDC (CURRENT) USE OF SYSTEMIC STER 03/29/2017 KARLIE [...] BODY MASS INDEX (BMI) 34.0-34.9, ADULT 03/30/2017 EULGOIO BRAGA MD, Ot Z79.899 OTHER FDC (CURRENT) DRUG THERAPY 05/20/2017 ADE FOWLER Ot Z51.81 ENCOUNTER FOR THERAPEUTIC DRUG LEVEL MON 05/20/2017 ADE FOWLER Ot Z79.899 OTHER UTILITY ENGINEER (CURRENT) DRUG THERAPY 05/20/2017 EULOGIO BRAGA MD, [...] 05/20/2017 EULOGIO BRAGA MD, Ot Z79.899 OTHER FDC (CURRENT) DRUG THERAPY 05/20/2017 ADE FOWLER Ot Z51.81 ENCOUNTER FOR THERAPEUTIC DRUG LEVEL MON 05/20/2017 ADE FOWLER Ot Z79.899 OTHER UTILITY ENGINEER (CURRENT) DRUG THERAPY 05/20/2017 EULOGIO BRAGA MD [...] 05/20/2017 EULOGIO BRAGA MD, Ot Z79.899 OTHER FDC (CURRENT) DRUG THERAPY 05/20/2017 JEFFREY DO EMILY [...] M06.9 RHEUMATOID ARTHRITIS, UNSPECIFIED 05/20/2017 JEFFREY DO MEILY K Ot R11.2 NAUSEA WITH VOMITING, UNSPECIFIED [...] MON 05/20/2017 ADE FOWLER Ot Z79.899 OTHER UTILITY ENGINEER (CURRENT) DRUG THERAPY 05/20/2017 EULOGIO BRAGA MD, [...] 05/20/2017 EULOGIO BRAGA MD, Ot Z79.899 OTHER FDC (CURRENT) DRUG THERAPY 05/21/2017 NOELLE MAK MD [...] F60.9 PERSONALITY DISORDER, UNSPECIFIED 05/21/2017 AUBREE MURRAY, NOELEL Lazar Ot I10 ESSENTIAL (PRIMARY) HYPERTENSION 05/21/2017 [...] MON 05/21/2017 ADE FOWLER Ot Z79.899 OTHER FDC (CURRENT) DRUG THERAPY 05/21/2017 EULOGIO BRAGA MD [...] 05/21/2017 EULOGIO BRAGA MD, Ot Z79.899 OTHER UTILITY ENGINEER (CURRENT) DRUG THERAPY 05/23/2017 EMILY MURPHY DO [...] PAIN 06/03/2017 KAYLA MELENDEZ APRN Ot Z79.52 UTILITY ENGINEER (CURRENT) USE OF SYSTEMIC STER 06/03/2017 KAYLA [...] PAIN 06/06/2017 KAYLA MELENDEZ APRN Ot Z79.52 FDC (CURRENT) USE OF SYSTEMIC STER 06/06/2017 KAYLA [...] PAIN 06/09/2017 KAYLA MELENDEZ APRN Ot Z79.52 UTILITY ENGINEER (CURRENT) USE OF SYSTEMIC STER 06/09/2017 KAYLA MELENDEZ APRN Ot Z85.828 PERSONAL HISTORY OF OTHER MALIGNANT NEOP 06/09/2017 KAYLA MELENDEZ APRN Ot Z87.59 PERSONAL HISTORY OF COMP OF PREG, CHLDBR 06/09/2017 KAYLA MELENDEZ APRN Ot Z90.13 ACQUIRED ABSENCE OF BILATERAL BREASTS AN 06/29/2017 KAYLA MELENDEZ APRN Ot C50.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 06/29/2017 KAYLA MELENDEZ APRN Ot C79.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 06/29/2017 KAYLA MELENDEZ APRN Ot D72.829 ELEVATED WHITE BLOOD CELL COUNT, UNSPECI 06/29/2017 KAYLA MELENDEZ APRN Ot E78.00 PURE HYPERCHOLESTEROLEMIA, UNSPECIFIED 06/29/2017 KAYLA MELENDEZ APRN Ot F31.9 BIPOLAR DISORDER, UNSPECIFIED 06/29/2017 KAYLA MELENDEZ APRN Ot F41.9 ANXIETY DISORDER, UNSPECIFIED 06/29/2017 KAYLA MELENDEZ APRN Ot I10 ESSENTIAL (PRIMARY) HYPERTENSION 06/29/2017 KAYLA MELENDEZ APRN Ot J45.909 UNSPECIFIED ASTHMA, UNCOMPLICATED 06/29/2017 KAYLA MELENDEZ APRN Ot K21.9 GASTRO-ESOPHAGEAL REFLUX DISEASE WITHOUT 06/29/2017 KAYLA MELENDEZ APRN Ot M06.9 RHEUMATOID ARTHRITIS, UNSPECIFIED 06/29/2017 KAYLA MELENDEZ APRN Ot Z79.52 FDC (CURRENT) USE OF SYSTEMIC STER 06/29/2017 KAYLA MELENDEZ APRN Ot Z87.59 PERSONAL HISTORY OF COMP OF PREG, CHLDBR 06/29/2017 KAYLA MELENDEZ APRN Ot Z90.13 ACQUIRED ABSENCE OF BILATERAL BREASTS AN 06/29/2017 KAYLA MELENDEZ APRN Ot Z92.21 PERSONAL HISTORY OF ANTINEOPLASTIC CHEMO 06/29/2017 ADE FOWLER Ot Z51.81 ENCOUNTER FOR THERAPEUTIC DRUG LEVEL MON 06/29/2017 ADE FOWLER Ot Z79.899 OTHER FDC (CURRENT) DRUG THERAPY 06/29/2017 EULOGIO BRAGA MD Ot C50.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 06/29/2017 EULOGIO BRAGA MD Ot E66.9 OBESITY, UNSPECIFIED 06/29/2017 EULOGIO BRAGA MD, Ot E78.5 HYPERLIPIDEMIA, UNSPECIFIED 06/29/2017 EULOGIO BRAGA MD Ot F17.210 NICOTINE DEPENDENCE, CIGARETTES, UNCOMPL 06/29/2017 EULOGIO BRAGA MD Ot F31.9 BIPOLAR DISORDER, UNSPECIFIED 06/29/2017 EULOGIO BRAGA MD Ot I10 ESSENTIAL (PRIMARY) HYPERTENSION 06/29/2017 EULOGIO BRAGA MD, Ot J44.9 CHRONIC OBSTRUCTIVE PULMONARY DISEASE, U 06/29/2017 EULOGIO BRAGA MD, Ot Z17.0 ESTROGEN RECEPTOR POSITIVE STATUS [ER+] 06/29/2017 EULOGIO BRAGA MD, Ot Z51.0 ENCOUNTER FOR ANTINEOPLASTIC RADIATION T 06/29/2017 EULOGIO BRAGA MD Ot Z68.34 BODY MASS INDEX (BMI) 34.0-34.9, ADULT 06/29/2017 EULOGIO BRAGA MD, Ot Z79.899 OTHER FDC (CURRENT) DRUG THERAPY 07/01/2017 KAYLA MELENDEZ APRN [...] I10 ESSENTIAL (PRIMARY) HYPERTENSION 07/01/2017 KAYLA MELENDEZ APRN Ot J45.909 UNSPECIFIED ASTHMA, UNCOMPLICATED 07/01/2017 KAYLA MELENDEZ APRN Ot K21.9 GASTRO-ESOPHAGEAL REFLUX DISEASE WITHOUT 07/01/2017 KAYLA MELENDEZ APRN Ot M06.9 RHEUMATOID ARTHRITIS, UNSPECIFIED 07/01/2017 KAYLA MELENDEZ APRN Ot Z79.52 FDC (CURRENT) USE OF SYSTEMIC STER 07/01/2017 KAYLA MELENDEZ APRN Ot Z87.59 PERSONAL HISTORY OF COMP OF PREG, CHLDBR 07/01/2017 KAYLA MELENDEZ APRN Ot Z90.13 ACQUIRED ABSENCE OF BILATERAL BREASTS AN 07/01/2017 KAYLA MELENDEZ APRN Ot Z92.21 PERSONAL HISTORY OF ANTINEOPLASTIC CHEMO 07/04/2017 ZEKE ARCHER MD Ot D69.6 THROMBOCYTOPENIA, UNSPECIFIED 07/04/2017 ZEKE ARCHER MD Ot D72.829 ELEVATED WHITE BLOOD CELL COUNT, UNSPECI 07/04/2017 ZEKE ARCHER MD Ot E78.00 PURE HYPERCHOLESTEROLEMIA, UNSPECIFIED 07/04/2017 ZEKE ARCHER MD Ot F17.210 NICOTINE DEPENDENCE, CIGARETTES, UNCOMPL 07/04/2017 ZEKE ARCHER MD Ot F31.9 BIPOLAR DISORDER, UNSPECIFIED 07/04/2017 ZEKE ARCHER MD Ot F41.9 ANXIETY DISORDER, UNSPECIFIED 07/04/2017 ZEKE ARCHER MD Ot I10 ESSENTIAL (PRIMARY) HYPERTENSION 07/04/2017 ZEKE ARCHER MD Ot J45.909 UNSPECIFIED ASTHMA, UNCOMPLICATED 07/04/2017 ZEKE ARCHER MD Ot K21.9 GASTRO-ESOPHAGEAL REFLUX DISEASE WITHOUT 07/04/2017 ZEKE ARCHER MD Ot M06.9 RHEUMATOID ARTHRITIS, UNSPECIFIED 07/04/2017 ZEKE ARCHER MD Ot R10.31 RIGHT LOWER QUADRANT PAIN 07/04/2017 ZEKE ARCHER MD Ot R10.9 UNSPECIFIED ABDOMINAL PAIN 07/04/2017 ZEKE ARCHER MD Ot Z79.52 FDC (CURRENT) USE OF SYSTEMIC STER 07/04/2017 ZEKE ARCHER MD Ot Z85.3 PERSONAL HISTORY OF MALIGNANT NEOPLASM O 07/04/2017 ZEKE ARCHER MD Ot Z85.828 PERSONAL HISTORY OF OTHER MALIGNANT NEOP 07/04/2017 ZEKE ARCHER MD Ot Z85.841 PERSONAL HISTORY OF MALIGNANT NEOPLASM O 07/04/2017 ZEKE ARCHER MD Ot Z87.59 PERSONAL HISTORY OF COMP OF PREG, CHLDBR 07/04/2017 ZEKE ARCHER MD Ot Z90.13 ACQUIRED ABSENCE OF BILATERAL BREASTS AN 07/04/2017 ZEKE ARCHER MD Ot Z90.89 ACQUIRED ABSENCE OF OTHER ORGANS 07/04/2017 ZEKE ARCHER MD Ot Z92.21 PERSONAL HISTORY OF ANTINEOPLASTIC CHEMO 07/04/2017 ZEKE ARCHER MD Ot Z95.9 PRESENCE OF CARDIAC AND VASCULAR IMPLANT 07/06/2017 ZEKE ARCHER MD Ot D69.6 THROMBOCYTOPENIA, [...] M06.9 RHEUMATOID ARTHRITIS, UNSPECIFIED 07/06/2017 ZEKE ARCHER MD, Ot R10.31 RIGHT LOWER QUADRANT PAIN 07/06/2017 ZEKE ARCHER MD Ot R10.9 UNSPECIFIED ABDOMINAL PAIN 07/06/2017 ZEKE ARCEHR MD Ot Z79.52 FDC (CURRENT) USE OF SYSTEMIC STER 07/06/2017 ZEKE ARCHER MD Ot Z85.3 PERSONAL HISTORY OF MALIGNANT NEOPLASM O 07/06/2017 ZEKE ARCHER MD Ot Z85.828 PERSONAL HISTORY OF OTHER MALIGNANT NEOP 07/06/2017 ZEKE ARCHER MD, Ot Z85.841 PERSONAL HISTORY OF MALIGNANT NEOPLASM [...] Z95.9 PRESENCE OF CARDIAC AND VASCULAR IMPLANT 07/09/2017 KARLIE ZHU MD Ot 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 07/09/2017 KARLIE ZHU MD, Ot C79.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 07/09/2017 KARLIE ZHU MD Ot E78.00 PURE HYPERCHOLESTEROLEMIA, UNSPECIFIED 07/09/2017 KARLIE ZHU MD Ot F31.9 BIPOLAR DISORDER, UNSPECIFIED 07/09/2017 KARLIE ZHU MD, Ot F41.9 ANXIETY DISORDER, UNSPECIFIED 07/09/2017 KARLIE ZHU MD, Ot F60.9 PERSONALITY DISORDER, UNSPECIFIED 07/09/2017 KARLIE ZHU MD Ot 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) 07/09/2017 KARLIE ZHU MD Ot I10 ESSENTIAL (PRIMARY) HYPERTENSION 07/09/2017 KARLIE ZHU MD Ot J45.909 UNSPECIFIED ASTHMA, UNCOMPLICATED 07/09/2017 KARLIE ZHU MD, Ot K21.9 GASTRO-ESOPHAGEAL REFLUX DISEASE WITHOUT 07/09/2017 KARLIE ZHU MD Ot R68.84 JAW PAIN 07/09/2017 KARLIE ZHU MD Ot Z77.22 CNTCT W AND EXPSR TO ENVIRON TOBACCO SMO 07/09/2017 KARLIE ZHU MD Ot Z87.59 PERSONAL HISTORY OF COMP OF PREG, CHLDBR 07/09/2017 KARLIE ZHU MD Ot Z90.13 ACQUIRED ABSENCE OF BILATERAL BREASTS AN 07/09/2017 KARLIE ZHU MD Ot Z90.49 ACQUIRED ABSENCE OF OTHER SPECIFIED PART 07/12/2017 KAYLA MELENDEZ APRN Ot C50.919 MALIGNANT NEOPLASM OF UNSP SITE OF UNSPE 07/12/2017 KAYLA MELENDEZ APRN Ot C79.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 07/12/2017 KAYLA MELENDEZ APRN Ot E78.00 PURE HYPERCHOLESTEROLEMIA, UNSPECIFIED 07/12/2017 KAYLA MELENDEZ APRN Ot F17.210 NICOTINE DEPENDENCE, CIGARETTES, UNCOMPL 07/12/2017 KAYLA MELENDEZ APRN Ot F31.9 BIPOLAR DISORDER, UNSPECIFIED 07/12/2017 KAYLA MELENDEZ APRN Ot F41.9 ANXIETY DISORDER, UNSPECIFIED 07/12/2017 KAYLA MELENDEZ APRN Ot I10 ESSENTIAL (PRIMARY) HYPERTENSION 07/12/2017 KAYLA MELENDEZ APRN Ot J45.909 UNSPECIFIED ASTHMA, UNCOMPLICATED 07/12/2017 KAYLA MELENDEZ APRN Ot K21.9 GASTRO-ESOPHAGEAL REFLUX DISEASE WITHOUT 07/12/2017 KAYLA MELENDEZ APRN Ot M06.9 RHEUMATOID ARTHRITIS, UNSPECIFIED 07/12/2017 KAYLA MELENDEZ APRN Ot R10.84 GENERALIZED ABDOMINAL PAIN 07/12/2017 KAYLA MELENDEZ APRN Ot Z87.59 PERSONAL HISTORY OF COMP OF PREG, CHLDBR 07/12/2017 KAYLA MELENDEZ APRN Ot Z90.13 ACQUIRED ABSENCE OF BILATERAL BREASTS AN 07/12/2017 KAYLA MELENDEZ APRN Ot Z90.89 ACQUIRED ABSENCE OF OTHER ORGANS 07/12/2017 KAYLA MELENDEZ APRN Ot Z92.21 PERSONAL HISTORY OF ANTINEOPLASTIC CHEMO 07/14/2017 KAYLA MELENDEZ APRN Ot C50.919 MALIGNANT NEOPLASM OF UNSP SITE OF UNSPE 07/14/2017 KAYLA MELENDEZ APRN Ot C79.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 07/14/2017 KAYLA MELENDEZ APRN Ot E78.00 PURE HYPERCHOLESTEROLEMIA, UNSPECIFIED 07/14/2017 KAYLA MELENDEZ APRN Ot F17.210 NICOTINE DEPENDENCE, CIGARETTES, UNCOMPL 07/14/2017 KAYLA MELENDEZ APRN Ot F31.9 BIPOLAR DISORDER, UNSPECIFIED 07/14/2017 KAYLA MELENDEZ APRN Ot F41.9 ANXIETY DISORDER, UNSPECIFIED 07/14/2017 KAYLA MELENDEZ APRN Ot I10 ESSENTIAL (PRIMARY) HYPERTENSION 07/14/2017 KAYLA MELENDEZ APRN Ot J45.909 UNSPECIFIED ASTHMA, UNCOMPLICATED 07/14/2017 KAYLA MELENDEZ APRN Ot K21.9 GASTRO-ESOPHAGEAL REFLUX DISEASE WITHOUT 07/14/2017 KAYLA MELENDEZ APRN Ot M06.9 RHEUMATOID ARTHRITIS, UNSPECIFIED 07/14/2017 KAYLA MELENDEZ APRN Ot R10.84 GENERALIZED ABDOMINAL PAIN 07/14/2017 KAYLA MELENDEZ APRN Ot Z87.59 PERSONAL HISTORY OF COMP OF PREG, CHLDBR 07/14/2017 KAYLA MELENDEZ APRN Ot Z90.13 ACQUIRED ABSENCE OF BILATERAL BREASTS AN 07/14/2017 KAYLA MELENDEZ APRN Ot Z90.89 ACQUIRED ABSENCE OF OTHER ORGANS 07/14/2017 KAYLA MELENDEZ APRN Ot Z92.21 PERSONAL HISTORY OF ANTINEOPLASTIC CHEMO 07/26/2017 KAYLA MELENDEZ APRN Ot C50.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 07/26/2017 KAYLA MELENDEZ APRN Ot C79.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 07/26/2017 KAYLA MELENDEZ APRN Ot E78.00 PURE HYPERCHOLESTEROLEMIA, UNSPECIFIED 07/26/2017 KAYLA MELENDEZ APRN Ot F17.210 NICOTINE DEPENDENCE, CIGARETTES, UNCOMPL 07/26/2017 KAYLA MELENDEZ APRN Ot F31.9 BIPOLAR DISORDER, UNSPECIFIED 07/26/2017 KAYLA MELENDEZ APRN Ot F41.9 ANXIETY DISORDER, UNSPECIFIED 07/26/2017 KAYLA MELENDEZ APRN Ot G89.29 OTHER CHRONIC PAIN 07/26/2017 KAYLA MELENDEZ COMMUNITY ORGANIZER Ot I10 ESSENTIAL (PRIMARY) HYPERTENSION 07/26/2017 KAYLA MELENDEZ COMMUNITY ORGANIZER Ot K21.9 GASTRO-ESOPHAGEAL REFLUX DISEASE WITHOUT 07/26/2017 KAYLA MELENDEZ COMMUNITY ORGANIZER Ot R51 HEADACHE 07/26/2017 KAYLA MELENDEZ APRN Ot Z87.59 PERSONAL HISTORY OF COMP OF PREG, CHLDBR 07/26/2017 KAYLA MELENDEZ APRN Ot Z90.13 ACQUIRED ABSENCE OF BILATERAL BREASTS AN 07/26/2017 KAYLA MELENDEZ COMMUNITY ORGANIZER Ot Z90.49 ACQUIRED ABSENCE OF OTHER SPECIFIED PART 08/04/2017 MADELINE JONES ASSOCIATE PROFESSOR OF CHEMISTRY Ot C50.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 08/04/2017 MADELINE JONESP Ot C79.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 08/04/2017 MADELINE JONES ASSOCIATE PROFESSOR OF CHEMISTRY Ot E78.00 PURE HYPERCHOLESTEROLEMIA, UNSPECIFIED 08/04/2017 KAREN MADELINE ASSOCIATE PROFESSOR OF CHEMISTRY Ot F17.210 NICOTINE DEPENDENCE, CIGARETTES, UNCOMPL 08/04/2017 KAREN MADELINE ASSOCIATE PROFESSOR OF CHEMISTRY Ot F31.9 BIPOLAR DISORDER, UNSPECIFIED 08/04/2017 KAREN, MADELINE ASSOCIATE PROFESSOR OF CHEMISTRY Ot F41.9 ANXIETY DISORDER, UNSPECIFIED 08/04/2017 KAREN MADELINE ASSOCIATE PROFESSOR OF CHEMISTRY Ot 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) 08/04/2017 KAREN MADELINE ASSOCIATE PROFESSOR OF CHEMISTRY Ot I10 ESSENTIAL (PRIMARY) HYPERTENSION 08/04/2017 KAREN MADELINE ASSOCIATE PROFESSOR OF CHEMISTRY Ot J45.909 UNSPECIFIED ASTHMA, UNCOMPLICATED 08/04/2017 MADELINE JONES ASSOCIATE PROFESSOR OF CHEMISTRY Ot K21.9 GASTRO-ESOPHAGEAL REFLUX DISEASE WITHOUT 08/04/2017 KAREN MADELINE ASSOCIATE PROFESSOR OF CHEMISTRY Ot K62.5 HEMORRHAGE OF ANUS AND RECTUM 08/04/2017 KAREN MADELINE ASSOCIATE PROFESSOR OF CHEMISTRY Ot M06.9 RHEUMATOID ARTHRITIS, UNSPECIFIED 08/04/2017 KAREN MADELINE ASSOCIATE PROFESSOR OF CHEMISTRY Ot R19.5 OTHER FECAL ABNORMALITIES 08/04/2017 MADELINE JONSE ASSOCIATE PROFESSOR OF CHEMISTRY Ot Z87.59 PERSONAL HISTORY OF COMP OF PREG, CHLDBR 08/04/2017 MADELINE JONES ASSOCIATE PROFESSOR OF CHEMISTRY Ot Z90.13 ACQUIRED ABSENCE OF BILATERAL BREASTS AN 08/04/2017 MADELINE JONES ASSOCIATE PROFESSOR OF CHEMISTRY Ot Z90.89 ACQUIRED ABSENCE OF OTHER ORGANS 08/04/2017 MADELINE JONES ASSOCIATE PROFESSOR OF CHEMISTRY Ot Z92.21 PERSONAL HISTORY OF ANTINEOPLASTIC CHEMO Procedures There is no data. Results Test [...] INFLUENZA A AND B ANTIGENS BY IA NR Bacterial blood culture - 05/24/16 19:47 Bacterial blood culture [facility] Complete blood count (CBC) with [...] culture - 05/24/16 20:59 Bacterial urine culture [id number] NRG COLONY COUNT >100,000/ML NRG FTX;REPORTABLE PLUS, [...] Blood erythrocyte morphology finding identification NORMAL NRG Complete blood count (CBC) with automated white blood cell (WBC) differential - 07/12/17 21:01 Blood leukocytes automated count (number/volume) 5.2 10*3/uL 4.3-11.0 Blood erythrocytes automated count (number/volume) 4.36 10*6/uL 4.35-5.85 Venous blood hemoglobin measurement (mass/volume) 13.5 g/dL 11.5-16.0 Blood hematocrit (volume fraction) 40 % 35-52 Automated erythrocyte mean corpuscular volume 91 [foz_us] 80-99 Automated erythrocyte mean corpuscular hemoglobin (mass per erythrocyte) 31 pg 25-34 Automated erythrocyte mean corpuscular hemoglobin concentration measurement ( mass/volume) 34 g/dL 32-36 Automated erythrocyte distribution width ratio 15.3 % 10.0-14.5 Automated blood platelet count (count/volume) 245 10*3/uL 130-400 Automated blood platelet mean volume measurement 9.7 [foz_us] 7.4-10.4 Automated blood neutrophils/100 leukocytes 65 % 42-75 Automated blood lymphocytes/100 leukocytes 25 % 12-44 Blood monocytes/100 leukocytes 8 % 0-12 Automated blood eosinophils/100 leukocytes 2 % 0-10 Automated blood basophils/100 leukocytes 0 % 0-10 Blood neutrophils automated count (number/volume) 3.4 10*3 1.8-7.8 Blood lymphocytes automated count (number/volume) 1.3 10*3 1.0-4.0 Blood monocytes automated count (number/volume) 0.4 10*3 0.0-1.0 Automated eosinophil count 0.1 10*3/uL 0.0-0.3 Automated blood basophil count (count/volume) 0.0 10*3/uL 0.0-0.1 Comprehensive metabolic panel - 07/12/17 21:01 Serum or plasma sodium measurement (moles/volume) 139 mmol/L 135-145 Serum or plasma potassium measurement (moles/volume) 3.3 mmol/L 3.6-5.0 Serum or plasma chloride measurement (moles/volume) 104 mmol/L 98-107 Carbon dioxide 23 mmol/L 21-32 Serum or plasma anion gap determination (moles/volume) 12 mmol/L 5-14 Serum or plasma urea nitrogen measurement (mass/volume) 6 mg/dL 7-18 Serum or plasma creatinine measurement (mass/volume) 0.58 mg/dL 0.60-1.30 Serum or plasma urea nitrogen/creatinine mass ratio 10 NRG Serum or plasma creatinine measurement with calculation of estimated glomerular filtration rate > NRG Serum or plasma glucose measurement (mass/volume) 88 mg/dL 70-105 Serum or plasma calcium measurement (mass/volume) 9.0 mg/dL 8.5-10.1 Serum or plasma total bilirubin measurement (mass/volume) 0.3 mg/dL 0.1-1.0 Serum or plasma alkaline phosphatase measurement (enzymatic activity/volume) 97 U/L 40-136 Serum or plasma aspartate aminotransferase measurement (enzymatic activity/ volume) 30 U/L 5-34 Serum or plasma alanine aminotransferase measurement (enzymatic activity/volume ) 23 U/L 0-55 Serum or plasma protein measurement (mass/volume) 6.8 g/dL 6.4-8.2 Serum or plasma albumin measurement (mass/volume) 3.6 g/dL 3.2-4.5 Complete urinalysis with reflex to culture - 07/12/17 21:31 Urine color determination YELLOW NRG Urine clarity [...] NORMAL Urine leukocyte esterase detection by dipstick 1+ NEGATIVE Automated urine sediment erythrocyte count by microscopy (number/high power field) NONE NRG Automated urine sediment leukocyte count by microscopy (number/high power field ) [HPF] NRG Bacteria detection in urine sediment by light microscopy NEGATIVE NRG Squamous epithelial cells detection in urine sediment by light microscopy 5-10 NRG Crystals detection in urine sediment by light microscopy NONE NRG Casts detection in urine sediment by light microscopy NONE NRG Mucus detection in urine sediment by light microscopy NEGATIVE NRG Complete urinalysis with reflex to culture NO NRG Complete blood count (CBC) with automated white blood cell (WBC) differential - 07/26/17 17:40 Blood leukocytes automated count (number/volume) 25.2 10*3/uL 4.3-11.0 Blood erythrocytes automated count (number/volume) 4.36 10*6/uL 4.35-5.85 Venous blood hemoglobin measurement (mass/volume) 13.5 g/dL 11.5-16.0 Blood hematocrit (volume fraction) 40 % 35-52 Automated erythrocyte mean corpuscular volume 92 [foz_us] 80-99 Automated erythrocyte mean corpuscular hemoglobin (mass per erythrocyte) 31 pg 25-34 Automated erythrocyte mean corpuscular hemoglobin concentration measurement ( mass/volume) 34 g/dL 32-36 Automated erythrocyte distribution width ratio 15.0 % 10.0-14.5 Automated blood platelet count (count/volume) 260 10*3/uL 130-400 Automated blood platelet mean volume measurement 10.1 [foz_us] 7.4-10.4 Automated blood neutrophils/100 leukocytes 88 % 42-75 Automated blood lymphocytes/100 leukocytes 8 % 12-44 Blood monocytes/100 leukocytes 4 % 0-12 Automated blood eosinophils/100 leukocytes 0 % 0-10 Automated blood basophils/100 leukocytes 0 % 0-10 Blood neutrophils automated count (number/volume) 22.1 10*3 1.8-7.8 Blood lymphocytes automated count (number/volume) 2.0 10*3 1.0-4.0 Blood monocytes automated count (number/volume) 1.1 10*3 0.0-1.0 Automated eosinophil count 0.1 10*3/uL 0.0-0.3 Automated blood basophil count (count/volume) 0.0 10*3/uL 0.0-0.1 PT panel in platelet poor plasma by coagulation assay - 07/26/17 17:40 Prothrombin time (PT) in platelet poor plasma by coagulation assay 12.5 s 12.2-14.7 INR in platelet poor plasma or blood by coagulation assay 0.9 0.8-1.4 Comprehensive metabolic panel - 07/26/17 17:40 Serum or plasma sodium measurement (moles/volume) 141 mmol/L 135-145 Serum or plasma potassium measurement (moles/volume) 3.9 mmol/L 3.6-5.0 Serum or plasma chloride measurement (moles/volume) 105 mmol/L 98-107 Carbon dioxide 27 mmol/L 21-32 Serum or plasma anion gap determination (moles/volume) 9 mmol/L 5-14 Serum or plasma urea nitrogen measurement (mass/volume) 7 mg/dL 7-18 Serum or plasma creatinine measurement (mass/volume) 0.63 mg/dL 0.60-1.30 Serum or plasma urea nitrogen/creatinine mass ratio 11 NRG Serum or plasma creatinine measurement with calculation of estimated glomerular filtration rate > NRG Serum or plasma glucose measurement (mass/volume) 112 mg/dL 70-105 Serum or plasma calcium measurement (mass/volume) 10.1 mg/dL 8.5-10.1 Serum or plasma total bilirubin measurement (mass/volume) 0.2 mg/dL 0.1-1.0 Serum or plasma alkaline phosphatase measurement (enzymatic activity/volume) 64 U/L 40-136 Serum or plasma aspartate aminotransferase measurement (enzymatic activity/ volume) 23 U/L 5-34 Serum or plasma alanine aminotransferase measurement (enzymatic activity/volume ) 15 U/L 0-55 Serum or plasma protein measurement (mass/volume) 7.2 g/dL 6.4-8.2 Serum or plasma albumin measurement (mass/volume) 4.0 g/dL 3.2-4.5 Blood manual differential performed detection - 07/26/17 17:40 Blood monocytes/100 leukocytes 1 % NRG Manual blood segmented neutrophils/100 leukocytes 90 % NRG Blood band neutrophils/100 leukocytes 0 % NRG Manual blood lymphocytes/100 leukocytes 9 % NRG Manual eosinophils/100 leukocytes in nose 0 % NRG Manual blood basophils/100 leukocytes 0 % NRG Blood erythrocyte morphology finding identification NORMAL NRG Complete blood count (CBC) with automated white blood cell (WBC) differential - 08/02/17 09:49 Blood leukocytes automated count (number/volume) 29.7 10*3/uL 4.3-11.0 Blood erythrocytes automated count (number/volume) 4.64 10*6/uL 4.35-5.85 Venous blood hemoglobin measurement (mass/volume) 14.4 g/dL 11.5-16.0 Blood hematocrit (volume fraction) 42 % 35-52 Automated erythrocyte mean corpuscular volume 90 [foz_us] 80-99 Automated erythrocyte mean corpuscular hemoglobin (mass per erythrocyte) 31 pg 25-34 Automated erythrocyte mean corpuscular hemoglobin concentration measurement ( mass/volume) 34 g/dL 32-36 Automated erythrocyte distribution width ratio 15.1 % 10.0-14.5 Automated blood platelet count (count/volume) 65 10*3/uL 130-400 Automated blood platelet mean volume measurement 11.3 [foz_us] 7.4-10.4 Automated blood neutrophils/100 leukocytes 86 % 42-75 Automated blood lymphocytes/100 leukocytes 7 % 12-44 Blood monocytes/100 leukocytes 6 % 0-12 Automated blood eosinophils/100 leukocytes 1 % 0-10 Automated blood basophils/100 leukocytes 0 % 0-10 Blood neutrophils automated count (number/volume) 25.5 10*3 1.8-7.8 Blood lymphocytes automated count (number/volume) 2.1 10*3 1.0-4.0 Blood monocytes automated count (number/volume) 1.8 10*3 0.0-1.0 Automated eosinophil count 0.1 10*3/uL 0.0-0.3 Automated blood basophil count (count/volume) 0.1 10*3/uL 0.0-0.1 Comprehensive metabolic panel - 08/02/17 09:49 Serum or plasma sodium measurement (moles/volume) 137 mmol/L 135-145 Serum or plasma potassium measurement (moles/volume) 3.4 mmol/L 3.6-5.0 Serum or plasma chloride measurement (moles/volume) 101 mmol/L 98-107 Carbon dioxide 26 mmol/L 21-32 Serum or plasma anion gap determination (moles/volume) 10 mmol/L 5-14 Serum or plasma urea nitrogen measurement (mass/volume) 7 mg/dL 7-18 Serum or plasma creatinine measurement (mass/volume) 0.64 mg/dL 0.60-1.30 Serum or plasma urea nitrogen/creatinine mass ratio 11 NRG Serum or plasma creatinine measurement with calculation of estimated glomerular filtration rate > NRG Serum or plasma glucose measurement (mass/volume) 96 mg/dL 70-105 Serum or plasma calcium measurement (mass/volume) 9.5 mg/dL 8.5-10.1 Serum or plasma total bilirubin measurement (mass/volume) 0.3 mg/dL 0.1-1.0 Serum or plasma alkaline phosphatase measurement (enzymatic activity/volume) 150 U/L 40-136 Serum or plasma aspartate aminotransferase measurement (enzymatic activity/ volume) 38 U/L 5-34 Serum or plasma alanine aminotransferase measurement (enzymatic activity/volume ) 22 U/L 0-55 Serum or plasma protein measurement (mass/volume) 7.1 g/dL 6.4-8.2 Serum or plasma albumin measurement (mass/volume) 3.8 g/dL 3.2-4.5 PT panel in platelet poor plasma by coagulation assay - 08/02/17 09:49 Prothrombin time (PT) in platelet poor plasma by coagulation assay 13.4 s 12.2-14.7 INR in platelet poor plasma or blood by coagulation assay 1.0 0.8-1.4 Activated partial thromboplastin time (aPTT) in platelet poor plasma bycoagulation assay - 08/02/17 09:49 Activated partial thromboplastin time (aPTT) in platelet poor plasma bycoagulation assay 23 s 24-35 Blood manual differential performed detection - 08/02/17 09:49 Blood monocytes/100 leukocytes 6 % NRG Manual blood segmented neutrophils/100 leukocytes 70 % NRG Blood band neutrophils/100 leukocytes 18 % NRG Manual blood lymphocytes/100 leukocytes 6 % NRG Manual eosinophils/100 leukocytes in nose 0 % NRG Manual blood basophils/100 leukocytes 0 % NRG Blood anisocytosis detection by light microscopy SLIGHT NRG Complete urinalysis with reflex to culture - 08/02/17 10:33 Urine color determination YELLOW NRG Urine clarity determination CLEAR NRG Urine pH measurement by test strip 7 5-9 Specific gravity of urine by test strip 1.010 1.016- 1.022 Urine protein assay by test strip, semi-quantitative NEGATIVE NEGATIVE Urine glucose detection by automated test strip NEGATIVE NEGATIVE Erythrocytes detection in urine sediment by light microscopy 1+ NEGATIVE Urine ketones detection by automated test strip NEGATIVE NEGATIVE Urine nitrite detection by test strip NEGATIVE NEGATIVE Urine total bilirubin detection by test strip NEGATIVE NEGATIVE Urine urobilinogen measurement by automated test strip (mass/volume) NORMAL NORMAL Urine leukocyte esterase detection by dipstick 1+ NEGATIVE Automated urine sediment erythrocyte count by microscopy (number/high power field) RARE NRG Automated urine sediment leukocyte count by microscopy (number/high power field ) [HPF] NRG Bacteria detection in urine sediment by light microscopy TRACE NRG Squamous epithelial cells detection in urine sediment by light microscopy 5-10 NRG Crystals detection in urine sediment by light microscopy NONE NRG Casts detection in urine sediment by light microscopy NONE NRG Mucus detection in urine sediment by light microscopy NEGATIVE NRG Complete urinalysis with reflex to culture NO NRG Complete blood count (CBC) with automated white blood cell (WBC) differential - 08/20/17 10:19 Blood leukocytes automated count (number/volume) 48.8 10*3/uL 4.3-11.0 Blood erythrocytes automated count (number/volume) 4.72 10*6/uL 4.35-5.85 Venous blood hemoglobin measurement (mass/volume) 14.6 g/dL 11.5-16.0 Blood hematocrit (volume fraction) 42 % 35-52 Automated erythrocyte mean corpuscular volume 89 [foz_us] 80-99 Automated erythrocyte mean corpuscular hemoglobin (mass per erythrocyte) 31 pg 25-34 Automated erythrocyte mean corpuscular hemoglobin concentration measurement ( mass/volume) 35 g/dL 32-36 Automated erythrocyte distribution width ratio 15.3 % 10.0-14.5 Automated blood platelet count (count/volume) 124 10*3/uL 130-400 Automated blood platelet mean volume measurement 10.2 [foz_us] 7.4-10.4 Automated blood neutrophils/100 leukocytes 91 % 42-75 Automated blood lymphocytes/100 leukocytes 4 % 12-44 Blood monocytes/100 leukocytes 4 % 0-12 Automated blood eosinophils/100 leukocytes 1 % 0-10 Automated blood basophils/100 leukocytes 1 % 0-10 Blood neutrophils automated count (number/volume) 44.3 10*3 1.8-7.8 Blood lymphocytes automated count (number/volume) 1.9 10*3 1.0-4.0 Blood monocytes automated count (number/volume) 2.0 10*3 0.0-1.0 Automated eosinophil count 0.3 10*3/uL 0.0-0.3 Automated blood basophil count (count/volume) 0.3 10*3/uL 0.0-0.1 PT panel in platelet poor plasma by coagulation assay - 08/20/17 10:19 Prothrombin time (PT) in platelet poor plasma by coagulation assay 13.2 s 12.2-14.7 INR in platelet poor plasma or blood by coagulation assay 1.0 0.8-1.4 Activated partial thromboplastin time (aPTT) in platelet poor plasma bycoagulation assay - 08/20/17 10:19 Activated partial thromboplastin time (aPTT) in platelet poor plasma bycoagulation assay 34 s 24-35 Blood manual differential performed detection - 08/20/17 10:19 Blood monocytes/100 leukocytes 5 % NRG Manual blood segmented neutrophils/100 leukocytes 91 % NRG Manual blood lymphocytes/100 leukocytes 3 % NRG Manual eosinophils/100 leukocytes in nose 1 % NRG Blood erythrocyte morphology finding identification NORMAL NRG Encounters ACCT No. Visit Date/Time Discharge Status Pt. Type Provider Facility Loc./Unit Complaint [id number] 08/20/2017 09:31:00 08/20/2017 10:45:00 DIS Emergency JEFFREY BALL EMILY Pryor [facility] NOSE BLEED [id number] 08/02/2017 09:09:00 08/02/2017 12:06:00 DIS Outpatient MADELINE JONES [facility] BLOOD IN HER STOOL [id number] 07/26/2017 17:31:00 07/26/2017 18:51:00 DIS Emergency KAYLA MELENDEZ APRN [facility] GENERAL PAIN [id number] 07/12/2017 20:13:00 07/12/2017 22:30:00 DIS Emergency KAYLA MELENDEZ [employer]GAN[employer]ER [facility] FALL, ABD PAIN [id number] 07/09/2017 17:00:00 07/09/2017 19:23:00 DIS Emergency KARLIE ZHU MD [facility] PT HAS BRAIN TUMOR, PAIN ALL OVER,JAW PAIN [id number] 07/04/2017 09:02:00 07/04/2017 11:29:00 DIS Emergency ZEKE ARCHER MD [facility] ABD PAIN AFTER PICC LINE PLACED [id number] 06/29/2017 11:27:00 06/29/2017 13:35:00 DIS Emergency KAYLA MELENDEZ COMM[employer]GANIZER [facility] ELEVATED WBC [id number] 06/03/2017 11:53:00 06/03/2017 13:57:00 DIS Emergency KAYLA MELENDEZ COMMUNITY [employer]GANIZER [facility] JAW PAIN [id number] 05/21/2017 08:03:00 05/21/2017 11:13:00 DIS Emergency AUBREE MURRAY, NOELLE S [facility] CHEST PAIN [id number] 05/20/2017 03:45:00 05/20/2017 06:00:00 DIS Emergency EMILY MURPHY DO [facility] WOLF [id number] 03/30/2017 00:29:00 03/30/2017 23:59:59 CLS Preadmit EULOGIO BRAGA MD [facility] ONC [id number] 01/12/2017 09:52:00 03/29/2017 00:01:00 DIS Outpatient EULOGIO BRAGA MD [facility] ONC [id number] 03/27/2017 10:40:00 03/27/2017 14:16:00 DIS Emergency KARLIE ZHU MD [facility] BRAIN TUMOR/HEAD PAIN/ L SIDE PAIN [id number] 01/07/2017 14:47:00 01/07/2017 18:14:00 DIS Emergency KAYLA MELENDEZ APRN [facility] N/V [id number] 12/29/2016 09:50:00 12/29/2016 11:15:00 DIS Emergency EMILY MURPHY DO [facility] MIGRAINES,NOSEBLEEDS [id number] 07/20/2016 15:28:00 10/18/2016 00:01:00 DIS Outpatient EULOGIO BRAGA MD [facility] ONC [id number] 06/28/2016 08:24:00 06/28/2016 10:05:00 DIS Emergency YANG ELKINS MD [facility] BREAST AREA PAIN/ BLISTED/BLEEDING FROM RADIATION [id number] 06/24/2016 09:48:00 06/24/2016 23:59:59 CLS Outpatient OMI MURRAY, EULOGIO [facility] ONC [id number] 05/26/2016 12:42:00 05/26/2016 15:18:00 DIS Emergency KARLIE ZHU MD [facility] RECTAL BLEEDING/PAIN [id number] 05/24/2016 20:35:00 05/25/2016 13:15:00 DIS Inpatient TERRI MURRAY, ABAD Cifuentes [facility] 4TH FEVER,BRONCHITIS,HYPOXIA, BREAST CA-ON CHEMO AND RA [id number] 03/04/2016 10:37:00 03/04/2016 11:16:00 DIS Emergency KAYLA MELENDEZ APRN [facility] PAIN/SWELLING RIGHT BREAST AREA [id number] 03/01/2016 10:03:00 03/01/2016 23:59:59 CLS Outpatient ADE FOWLER [facility] LAB Z79.899 [id number] 02/16/2016 08:21:00 02/16/2016 12:11:00 DIS Emergency EDIL QURESHI [facility] ANXIETY, NEEDING PORT FLUSHED [id number] 05/13/2015 08:02:00 07/30/2015 00:01:00 DIS Outpatient CEE ALSTON MD [facility] ONC [id number] 05/01/2015 11:17:00 05/01/2015 23:59:59 CLS Outpatient CEE ALSTON MD [facility] CARD BREAST CANCER [id number] 04/22/2015 11:06:00 04/22/2015 23:59:59 CLS Preadmit SANDRA TANG [facility] ONC [id number] 04/07/2015 10:59:00 04/14/2015 00:01:00 DIS Outpatient CEE ALSTON MD [facility] ONC [id number] 04/07/2015 11:51:00 04/07/2015 23:59:59 CLS Outpatient SANDRA TANG [facility] ONC [id number] 04/07/2015 11:17:00 04/07/2015 23:59:59 CLS Outpatient CEE ALSTON MD [facility] CARD BREAST CANCER [id number] 03/19/2015 08:29:00 03/19/2015 13:05:00 DIS Outpatient CAM BRAGA MD [facility] RIGHT BREAST CANCER [id number] 03/17/2015 06:12:00 03/17/2015 23:59:59 CLS Outpatient CAM BRAGA MD [facility] PREOP RIGHT BREAST CANCER [id number] 02/17/2015 10:18:00 02/17/2015 23:59:59 CLS Outpatient CEE ALSTON MD [facility] 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 [id number] 01/24/2015 13:52:00 01/24/2015 23:59:59 CLS Outpatient CEE ALSTON MD [facility] CARD ENCOUNTER FOR MONITORING CARDIOTOXIC DRUGS [id number] 01/23/2015 14:18:00 01/23/2015 23:59:59 CLS Outpatient SANDRA TANG [facility] ONC [id number] 01/23/2015 09:31:00 01/23/2015 23:59:59 CLS Outpatient CEE ALSTON MD [facility] RAD BREAST CA [id number] 01/22/2015 14:57:00 01/22/2015 23:59:59 CLS Outpatient CEE ALSTON MD [facility] RAD ABN MAMMO [id number] 01/17/2015 09:42:00 01/17/2015 23:59:59 CLS Outpatient CEE ALSTON MD [facility] CARD ENCOUNTER FOR MONITOR CARDIO TOXIC DRUG THERAPY [id number] 01/17/2015 09:38:00 01/17/2015 17:00:00 DIS Outpatient CAM BRAGA MD [facility] BREAST CANCER [id number] 01/15/2015 13:52:00 01/15/2015 23:59:59 CLS Outpatient SHERRY ROGEL MD (DDU) [facility] RT DDU [id number] 01/15/2015 05:43:00 01/15/2015 23:59:59 CLS Outpatient CAM BRAGA MD [facility] PREOP [id number] 01/03/2015 07:05:00 01/03/2015 23:59:59 CLS Outpatient DARÍO BURROWS [employer] [facility] RAD ABNORMAL MAMMO, BREAST MASS [id number] 01/01/2015 14:58:00 01/01/2015 23:59:59 CLS Outpatient DARÍO BURROWS [employer] [facility] RAD BREAST PAIN RT BREAST [id number] 12/25/2014 16:08:00 12/25/2014 17:23:00 DIS Emergency KAYLA MELENDEZ [employer]GANIZER [facility] ER R BREAST SWELLING/ TENDERNESS [id number] 12/19/2014 08:51:00 12/19/2014 11:43:00 DIS Emergency REGINALDO ANNA MD [facility] COUGH/FEVER [id number] 11/21/2014 11:43:00 11/21/2014 13:07:00 DIS Emergency KAYLA MELENDEZ [employer] [facility] SOA [id number] 11/08/2014 14:38:00 11/08/2014 16:53:00 DIS Emergency REGINALDO ANNA MD [facility] SOA [id number] 10/28/2014 14:21:00 10/28/2014 23:59:59 CLS Outpatient DARÍO BURROWS [employer] [facility] RAD LOCALIZE SWELLING MASS OR HEAD 3 ABNORMAL GROWTHS [id number] 10/11/2014 09:35:00 10/11/2014 10:09:00 DIS Emergency REGINALDO ANNA MD [facility] RASH [id number] 09/27/2014 09:09:00 09/27/2014 10:19:00 DIS Emergency KARLIE ZHU MD [facility]
== END 2017-08-20 10:45 | disposition home or self-care (01) ==
LOC: EDUNIT# 09:28 → ER 09:31
DX: R04.0 Epistaxis (principal); J31.0 Chronic rhinitis; C50.919 Malignant neoplasm of unspecified site of unspecified female breast; C79.31 Secondary malignant neoplasm of brain; F17.210 Nicotine dependence, cigarettes, uncomplicated; J45.909 Unspecified asthma, uncomplicated; I10 Essential (primary) hypertension; E78.00 Pure hypercholesterolemia, unspecified; K21.9 Gastro-esophageal reflux disease without esophagitis; M06.9 Rheumatoid arthritis, unspecified; F31.9 Bipolar disorder, unspecified; F60.9 Personality disorder, unspecified; Z85.828 Personal history of other malignant neoplasm of skin; Z90.49 Acquired absence of other specified parts of digestive tract; Z87.59 Personal history of other complications of pregnancy, childbirth and the puerperium
CPT/HCPCS: 36415; 85007; 85027; 85610; 85730; 99283

== ENCOUNTER 2017-09-25 18:35 | Emergency (ER) | payer MEDICARE, MEDICAID ==
[~2017-09-25] VITALS: Ht 165.1 cm; Wt 67.6 kg
[~2017-09-25 18:35] MED LIST changes: +MUPI1OIN5 NS; +PEGF6SYR SQ
--- OUTSIDE RECORDS SUMMARY | 2017-09-25 18:51 | XMS REPORT | Continuity of Care Document ---
Author Author [facility] Organization [facility] Address Unknown Phone Unavailable Allergies Active Description Code Type Severity Reaction Onset Reported/Identified Relationship to Patient Clinical Status Yes No Known Drug Allergies [id number] Drug Allergy Unknown N/A 09/27/2014 Medications There is no data. Problems Date Dx Coded Attending Type Code Diagnosis Diagnosed By 09/27/2014 KARLIE ZHU MD Ot 053.9 HERPES ZOSTER NOS 09/27/2014 KARLIE ZHU MD Ot V68.1 ISSUE REPEAT PRESCRIPT 10/11/2014 REGINALDO ANNA MD Ot 692.6 DERMATITIS DUE TO PLANT 10/11/2014 REGINALDO ANNA MD Ot 782.1 NONSPECIF SKIN ERUPT NEC 11/08/2014 DARÍO BURROWS HARDWOOD FLOOR INSTALLER Ot 784.2 11/08/2014 REGINALDO ANNA MD Ot F17.210 NICOTINE DEPENDENCE, CIGARETTES, UNCOMPL 11/08/2014 REGINALDO ANNA MD Ot J44.1 CHRONIC OBSTRUCTIVE PULMONARY DISEASE W 11/08/2014 REGINALDO ANNA MD Ot R06.02 SHORTNESS OF BREATH 11/08/2014 DARÍO BURROWS HARDWOOD FLOOR INSTALLER Ot 784.2 11/19/2014 DARÍO BURROWS HARDWOOD FLOOR INSTALLER Ot 784.2 11/21/2014 KAYLA MELENDEZ APRN Ot [...] Ot R50.9 FEVER, UNSPECIFIED 12/25/2014 KAYLA MELENDEZ HARDWOOD FLOOR INSTALLER Ot F17.210 NICOTINE DEPENDENCE, CIGARETTES, UNCOMPL 12/25/2014 KAYLA MELENDEZ HARDWOOD FLOOR INSTALLER Ot N64.9 DISORDER OF BREAST, UNSPECIFIED 01/09/2015 DARÍO BURROWS HARDWOOD FLOOR INSTALLER Ot N64.4 01/09/2015 DARÍO BURROWS HARDWOOD FLOOR INSTALLER Ot N64.4 01/10/2015 STORMY DARÍO You HARDWOOD FLOOR INSTALLER Ot N64.4 01/10/2015 ROB BURROWSYARELY You HARDWOOD FLOOR INSTALLER Ot N63 01/10/2015 STORMY DARÍO You HARDWOOD FLOOR INSTALLER Ot R92.8 01/14/2015 STORMY DARÍO You HARDWOOD FLOOR INSTALLER Ot N64.4 01/14/2015 STORMY DARÍO You HARDWOOD FLOOR INSTALLER Ot N63 01/14/2015 STORMY DARÍO You HARDWOOD FLOOR INSTALLER Ot R92.8 01/17/2015 STORMY DARÍO You HARDWOOD FLOOR INSTALLER Ot N64.4 01/17/2015 STORMY DARÍO You HARDWOOD FLOOR INSTALLER Ot N63 01/17/2015 STORMY DARÍO You HARDWOOD FLOOR INSTALLER Ot R92.8 01/17/2015 MARIA LUZ MURRAY, CAM Jara Ot C50.919 01/17/2015 MARIA LUZ MURRAY, CAM Jara Ot Z01.818 01/17/2015 GAMALIEL MURRYA, CEE Pryor Ot C50.411 01/17/2015 GAMALIEL MURRAY, [...] You (DDU) Ot Z02.71 01/22/2015 DARÍO BURROWS HARDWO[employer] FLOOR INSTALLER Ot N64.4 01/22/2015 DARÍO BURROWS HARDWOOD FLOOR INSTALLER Ot N63 01/22/2015 DARÍO BURROWS HARDWOOD FLOOR INSTALLER Ot R92.8 01/22/2015 GAMALIEL MURRAY, CEE K [...] MD (DDU) Ot Z02.71 01/24/2015 DARÍO BURROWS HARDWOOD FLOOR INSTALLER Ot N64.4 01/24/2015 DARÍO BURROWS HARDWOOD FLOOR INSTALLER Ot N63 01/24/2015 DARÍO BURROWS HARDWOOD FLOOR INSTALLER Ot R92.8 01/24/2015 GAMALIEL MURRAY, CEE K [...] K Ot R92.8 01/24/2015 KITTY SANDRA S COMPENSATION ADMINISTRATOR Ot C50.511 01/24/2015 KITTY SANDRA S COMPENSATION ADMINISTRATOR Ot E66.9 01/24/2015 KITTY SANDRA S COMPENSATION ADMINISTRATOR Ot E78.5 01/24/2015 KARIN TANGAH S COMPENSATION ADMINISTRATOR Ot F17.210 01/24/2015 KITTY SANDRA S COMPENSATION ADMINISTRATOR Ot F31.9 01/24/2015 KARIN TANGSINGH S COMPENSATION ADMINISTRATOR Ot I10 01/24/2015 KARIN TANGSINGH S COMPENSATION ADMINISTRATOR Ot J44.9 01/24/2015 KITTY SANDRA S COMPENSATION ADMINISTRATOR Ot Z17.1 01/24/2015 KITTY SANDRA S COMPENSATION ADMINISTRATOR Ot Z68.35 01/24/2015 KITTY SANDRA S COMPENSATION ADMINISTRATOR Ot Z79.899 01/24/2015 GAMALIEL MURRAY, CEE Pryor Ot R92.8 01/24/2015 KITTY SANDRA S COMPENSATION ADMINISTRATOR Ot C50.511 01/24/2015 KARIN TANGSINGH S COMPENSATION ADMINISTRATOR Ot E66.9 01/24/2015 KARIN TANGSINGH S COMPENSATION ADMINISTRATOR Ot E78.5 01/24/2015 KITTY SANDRA S COMPENSATION ADMINISTRATOR Ot F17.210 01/24/2015 KITTY SANDRA S COMPENSATION ADMINISTRATOR Ot F31.9 01/24/2015 KITTY SANDRA S COMPENSATION ADMINISTRATOR Ot I10 01/24/2015 KARIN TANGSINGH S COMPENSATION ADMINISTRATOR Ot J44.9 01/24/2015 KARIN TANGSINGH S COMPENSATION ADMINISTRATOR Ot Z17.1 01/24/2015 KARIN TANGSINGH S COMPENSATION ADMINISTRATOR Ot Z68.35 01/24/2015 KARIN TANGSINGH S COMPENSATION ADMINISTRATOR Ot Z79.899 01/24/2015 GAMALIEL MURRAY, CEE K [...] CEE Pryor Ot Z79.899 01/24/2015 DARÍO BURROWS HARDWOOD FLOOR INSTALLER Ot N63 01/24/2015 DARÍO BURROWS HARDWOOD FLOOR INSTALLER Ot R92.8 01/24/2015 DARÍO BURROWS HARDWOOD FLOOR INSTALLER Ot N64.4 01/24/2015 SHERRY ROGEL MD (DDU) Ot Z02.71 01/24/2015 DARÍO BURROWS HARDWOOD FLOOR INSTALLER Ot N64.4 01/24/2015 DARÍO BURROWS HARDWOOD FLOOR INSTALLER Ot N63 01/24/2015 DARÍO BURROWS HARDWOOD FLOOR INSTALLER Ot R92.8 01/24/2015 GAMALIEL MURRAY, CEE Konstantin [...] SANDRA TANG Ot C50.511 01/24/2015 SANDRA TANG COMPENSATION ADMINISTRATOR Ot E66.9 01/24/2015 SANDRA TANG COMPENSATION ADMINISTRATOR Ot E78.5 01/24/2015 SANDRA TANG COMPENSATION ADMINISTRATOR Ot F17.210 01/24/2015 SANDRA TANG COMPENSATION ADMINISTRATOR Ot F31.9 01/24/2015 SANDRA TANG COMPENSATION ADMINISTRATOR Ot I10 01/24/2015 SANDRA TANG COMPENSATION ADMINISTRATOR Ot J44.9 01/24/2015 SANDRA TANG S COMPENSATION ADMINISTRATOR Ot Z17.1 01/24/2015 SANDRA TANG S COMPENSATION ADMINISTRATOR Ot Z68.35 01/24/2015 SANDRA TANG COMPENSATION ADMINISTRATOR Ot Z79.899 02/13/2015 GAMALIEL MURRAY, CEE Pryor Ot C50.511 02/13/2015 GAMALIEL MURRAY, CEE Pryor Ot Z51.81 02/13/2015 GAMALIEL MURRAY, CEE Pryor Ot Z79.899 02/13/2015 GAMALIEL MURRAY, CEE Pryor Ot C50.511 02/13/2015 GAMALIEL MURRAY, CEE Pryor Ot Z51.81 02/13/2015 GAMALIEL MURRAY, CEE Pryor Ot Z79.899 02/17/2015 PEBBLES MURRAY, SHERRY You (DDU) Ot Z02.71 02/17/2015 DARÍO BURROWS HARDWOOD FLOOR INSTALLER Ot N64.4 02/17/2015 DARÍO BURROWS HARDWOOD FLOOR INSTALLER Ot N63 02/17/2015 DARÍO BURROWS HARDWOOD FLOOR INSTALLER Ot R92.8 02/17/2015 GAMALIEL MURRAY, CEE Pryor [...] MURRAY, CEE Pryor Ot R92.8 02/17/2015 TANGSANDRA COMPENSATION ADMINISTRATOR Ot C50.511 02/17/2015 TANG, SANDRA S COMPENSATION ADMINISTRATOR Ot E66.9 02/17/2015 TANG, HILAH S COMPENSATION ADMINISTRATOR Ot E78.5 02/17/2015 TANG, HILAH S COMPENSATION ADMINISTRATOR Ot F17.210 02/17/2015 TANG, HILAH S COMPENSATION ADMINISTRATOR Ot F31.9 02/17/2015 TANG, HILAH S COMPENSATION ADMINISTRATOR Ot I10 02/17/2015 TANG, HILAH S COMPENSATION ADMINISTRATOR Ot J44.9 02/17/2015 TANG, HILAH S COMPENSATION ADMINISTRATOR Ot Z17.1 02/17/2015 KITTY SANDRA S COMPENSATION ADMINISTRATOR Ot Z68.35 02/17/2015 KITTYSANDRA S COMPENSATION ADMINISTRATOR Ot Z79.899 02/17/2015 GAMALIEL MURRAY, CEE Pryor [...] You (DDU) Ot Z02.71 03/17/2015 DARÍO BURROWS HARDWOOD FLOOR INSTALLER Ot N64.4 03/17/2015 DARÍO BURROWS HARDWOOD FLOOR INSTALLER Ot N63 03/17/2015 DARÍO BURROWS HARDWOOD FLOOR INSTALLER Ot R92.8 03/17/2015 GAMALIEL MURRAY, CEE Pryor [...] CEE Pryor Ot R92.8 03/17/2015 SANDRA TANG COMPENSATION ADMINISTRATOR Ot C50.511 03/17/2015 SANDRA TANG S COMPENSATION ADMINISTRATOR Ot E66.9 03/17/2015 SANDRA TANG S COMPENSATION ADMINISTRATOR Ot E78.5 03/17/2015 KARIN TANGSINGH S COMPENSATION ADMINISTRATOR Ot F17.210 03/17/2015 SANDRA TANG S COMPENSATION ADMINISTRATOR Ot F31.9 03/17/2015 SANDRA TANG S COMPENSATION ADMINISTRATOR Ot I10 03/17/2015 SANDRA TANG S COMPENSATION ADMINISTRATOR Ot J44.9 03/17/2015 SANDRA TANG S COMPENSATION ADMINISTRATOR Ot Z17.1 03/17/2015 SANDRA TANG S COMPENSATION ADMINISTRATOR Ot Z68.35 03/17/2015 SANDRA TANG S COMPENSATION ADMINISTRATOR Ot Z79.899 03/17/2015 GAMALIEL MURRAY, CEE Pryor [...] You (DDU) Ot Z02.71 03/20/2015 DARÍO BURROWS HARDWOOD FLOOR INSTALLER Ot N64.4 03/20/2015 DARÍO BURROWS HARDWOOD FLOOR INSTALLER Ot N63 03/20/2015 DARÍO BURROWS HARDWOOD FLOOR INSTALLER Ot R92.8 03/20/2015 GAMALIEL MURRAY, CEE K [...] CEE K Ot R92.8 03/20/2015 SANDRA TANG COMPENSATION ADMINISTRATOR Ot C50.511 03/20/2015 SANDRA TANG COMPENSATION ADMINISTRATOR Ot E66.9 03/20/2015 SANDRA TANG COMPENSATION ADMINISTRATOR Ot E78.5 03/20/2015 SANDRA TANG COMPENSATION ADMINISTRATOR Ot F17.210 03/20/2015 SANDRA TANG COMPENSATION ADMINISTRATOR Ot F31.9 03/20/2015 SANDRA TANG COMPENSATION ADMINISTRATOR Ot I10 03/20/2015 SANDRA TANG COMPENSATION ADMINISTRATOR Ot J44.9 03/20/2015 SANDRA TANG COMPENSATION ADMINISTRATOR Ot Z17.1 03/20/2015 TANG, HILAH S COMPENSATION ADMINISTRATOR Ot Z68.35 03/20/2015 KITTY KARINAH S COMPENSATION ADMINISTRATOR Ot Z79.899 03/20/2015 GAMALIEL MURRAY, CEE K Ot C50.511 03/20/2015 GAMALIEL MURRAY, CEE K Ot Z51.81 03/20/2015 GAMALIEL MURRAY, CEE Pryor Ot Z79.899 03/20/2015 GAMALIEL MURRAY, CEE K Ot C50.511 03/20/2015 MARIA LUZ MURRAY, CAM M Ot C50.911 03/20/2015 MARIA LUZ MURRAY, CAM M Ot Z01.818 03/20/2015 GAMALIEL MURRAY, CEE K Ot C50.511 03/20/2015 KITTY HILAH S COMPENSATION ADMINISTRATOR Ot C50.511 03/20/2015 KARIN TANGAH S COMPENSATION ADMINISTRATOR Ot E66.9 03/20/2015 KITTY HILAH S COMPENSATION ADMINISTRATOR Ot E78.5 03/20/2015 KARIN TANGAH S COMPENSATION ADMINISTRATOR Ot F17.210 03/20/2015 KARIN TANGAH S COMPENSATION ADMINISTRATOR Ot F31.9 03/20/2015 SANDRA TANG S COMPENSATION ADMINISTRATOR Ot I10 03/20/2015 SANDRA TANG S COMPENSATION ADMINISTRATOR Ot J44.9 03/20/2015 SANDRA TANG S COMPENSATION ADMINISTRATOR Ot Z17.1 03/20/2015 KARIN TANGAH S COMPENSATION ADMINISTRATOR Ot Z68.35 03/20/2015 KITTY KARINAH S COMPENSATION ADMINISTRATOR Ot Z79.899 03/20/2015 GAMALIEL MURRAY, CEE K Ot C50.511 03/20/2015 GAMALIEL MURRAY, CEE Pryor Ot Z51.81 03/20/2015 GAMALIEL MURRAY, CEE K Ot Z79.899 03/20/2015 KITTY SANDRA S COMPENSATION ADMINISTRATOR Ot C50.511 03/20/2015 KARIN TANGAH S COMPENSATION ADMINISTRATOR Ot E66.9 03/20/2015 SANDRA TANG S COMPENSATION ADMINISTRATOR Ot E78.5 03/20/2015 KITTY HILAH S COMPENSATION ADMINISTRATOR Ot F17.210 03/20/2015 KITTY HILAH S COMPENSATION ADMINISTRATOR Ot F31.9 03/20/2015 KARIN TANGAH S COMPENSATION ADMINISTRATOR Ot I10 03/20/2015 SANDRA TANG S COMPENSATION ADMINISTRATOR Ot J44.9 03/20/2015 SANDRA TANG S COMPENSATION ADMINISTRATOR Ot Z17.1 03/20/2015 KITTYSANDRA COMPENSATION ADMINISTRATOR Ot Z68.35 03/20/2015 KITTY SANDRA Lazar COMPENSATION ADMINISTRATOR Ot Z79.899 03/20/2015 GAMALIEL MURRAY, CEE Konstantin [...] CEE Konstantin Ot Z79.899 03/20/2015 GAMALIEL MURRAY, ECE Pryor Ot C50.411 03/20/2015 GAMALIEL MURRAY, CEE [...] CEE Konstantin Ot Z79.899 03/20/2015 DARÍO BURROWS HARDWO[employer] FLOOR INSTALLER Ot N63 03/20/2015 DARÍO BURROWS HARDWOOD FLOOR INSTALLER Ot R92.8 03/20/2015 GAMALIEL MURRAY, CEE Pryor Ot C50.411 03/20/2015 GAMALIEL MURRAY, CEE Pryor Ot E66.9 03/20/2015 GAMALIEL MURRAY, CEE Pryor Ot E78.5 03/20/2015 GAMALIEL MURRAY, CEE Pryor Ot F17.210 03/20/2015 GAMALIEL MURRAY, CEE Pryor Ot F31.9 03/20/2015 GAMALIEL MURRAY, CEE Pryor Ot I10 03/20/2015 GAMALIEL MURRAY, CEE Pryor Ot J44.9 03/20/2015 GAMALIEL MURRAY, CEE Pryro Ot Z17.0 03/20/2015 GAMALIEL MURRAY, CEE Konstantin Ot Z68.34 03/20/2015 GAMALIEL MURRAY, CEE Pryor Ot Z79.899 03/20/2015 BURROWS, DARÍO You HARDWOOD FLOOR INSTALLER Ot N63 03/20/2015 BURROWS, DARÍO You HARDWOOD FLOOR INSTALLER Ot R92.8 03/20/2015 BURROWS, DARÍO You HARDWOOD FLOOR INSTALLER Ot N64.4 03/20/2015 BURROWS, DARÍO A HARDWOOD FLOOR INSTALLER Ot 784.2 03/25/2015 GAMALIEL MURRAY, CEE Konstantin Ot C50.511 03/25/2015 GAMALIEL MURRAY, CEE Konstantin Ot C50.511 03/25/2015 GAMALIEL MURRAY, CEE Pryor Ot Z51.81 03/25/2015 GAMALIEL MURRAY, CEE Konstantin Ot Z79.899 03/25/2015 GAMALIEL MURRAY, CEE Konstantin Ot C50.511 03/25/2015 GAMALIEL MURRAY, CEE Konstantin Ot C50.411 03/25/2015 GAMALIEL MURRAY, CEE Pryor Ot Z51.81 03/25/2015 GAMALIEL MURRAY, CEE Pryor Ot Z79.899 03/25/2015 BURROWS, DARÍO You HARDWOOD FLOOR INSTALLER Ot N63 03/25/2015 BURROWS, DARÍO A HARDWOOD FLOOR INSTALLER Ot R92.8 03/25/2015 BURROWS, DARÍO A HARDWOOD FLOOR INSTALLER Ot 784.2 03/31/2015 BURROWS, DARÍO A HARDWOOD FLOOR INSTALLER Ot 784.2 03/31/2015 PEBBLES MURRAY, SHERRY You (DDU) Ot Z02.71 03/31/2015 BURROWS, DARÍO A HARDWOOD FLOOR INSTALLER Ot N64.4 03/31/2015 BURROWS, DARÍO A HARDWOOD FLOOR INSTALLER Ot N63 03/31/2015 BURROWS, DARÍO A HARDWOOD FLOOR INSTALLER Ot R92.8 03/31/2015 GAMALIEL MURRAY, CEE Pryor [...] Pryor Ot R92.8 03/31/2015 KITTY SANDRA S COMPENSATION ADMINISTRATOR Ot C50.511 03/31/2015 KITTY HILAH S COMPENSATION ADMINISTRATOR Ot E66.9 03/31/2015 KITTY HILAH S COMPENSATION ADMINISTRATOR Ot E78.5 03/31/2015 KITTY KARINAH S COMPENSATION ADMINISTRATOR Ot F17.210 03/31/2015 KITTY KARINAH S COMPENSATION ADMINISTRATOR Ot F31.9 03/31/2015 KITTY SANDRA S COMPENSATION ADMINISTRATOR Ot I10 03/31/2015 KITTY SANDRA S COMPENSATION ADMINISTRATOR Ot J44.9 03/31/2015 KITTY SANDRA S COMPENSATION ADMINISTRATOR Ot Z17.1 03/31/2015 KITTY SANDRA S COMPENSATION ADMINISTRATOR Ot Z68.35 03/31/2015 KITTY KARINAH S COMPENSATION ADMINISTRATOR Ot Z79.899 03/31/2015 GAMALIEL MURRAY, CEE Pryor Ot C50.511 03/31/2015 GAMALIEL MURRAY, CEE Pryor Ot Z51.81 03/31/2015 GAMALIEL MURRAY, CEE Pryor Ot Z79.899 03/31/2015 GAMALIEL MURRAY, CEE Pryor Ot C50.511 03/31/2015 MARIA LUZ MURRAY, CAM Jara Ot C50.911 03/31/2015 MARIA LUZ MURRAY, CAM M Ot Z01.818 04/04/2015 DARÍO BURROWS HARDWO[employer] FLOOR INSTALLER Ot 784.2 04/04/2015 DARÍO BURROWS HARDWOOD FLOOR INSTALLER Ot N64.4 04/04/2015 DARÍO BURROWS HARDWOOD FLOOR INSTALLER Ot N63 04/04/2015 DARÍO BURROWS HARDWOOD FLOOR INSTALLER Ot R92.8 04/04/2015 GAMALIEL MURRAY, CEE Pryor Ot C50.511 04/04/2015 GAMALIEL MURRAY, CEE K Ot R92.8 04/04/2015 TANGSANDRA Lazar COMPENSATION ADMINISTRATOR Ot C50.511 04/04/2015 SANDRA TANG COMPENSATION ADMINISTRATOR Ot E66.9 04/04/2015 SANDRA TANG S COMPENSATION ADMINISTRATOR Ot E78.5 04/04/2015 SANDRA TANG S COMPENSATION ADMINISTRATOR Ot F17.210 04/04/2015 SANDRA TANG S COMPENSATION ADMINISTRATOR Ot F31.9 04/04/2015 SANDRA TANG S COMPENSATION ADMINISTRATOR Ot I10 04/04/2015 SANDRA TANG S COMPENSATION ADMINISTRATOR Ot J44.9 04/04/2015 SANDRA TANG S COMPENSATION ADMINISTRATOR Ot Z17.1 04/04/2015 TANGSANDRA Lazar S COMPENSATION ADMINISTRATOR Ot Z68.35 04/04/2015 TANGSANDRA Lazar COMPENSATION ADMINISTRATOR Ot Z79.899 04/04/2015 GAMALIEL MURRAY, CEE Konstantin Ot C50.511 04/04/2015 GAMALIEL MURRAY, CEE Konstantin Ot Z51.81 04/04/2015 GAMALIEL MURRAY, CEE K Ot Z79.899 04/04/2015 GAMALIEL MURRAY, CEE Pryor Ot C50.511 04/07/2015 DARÍO BURROWS HARDWOOD FLOOR INSTALLER Ot 784.2 04/07/2015 PEBBLES MURRAY, SHERRY You (DDU) Ot Z02.71 04/07/2015 DARÍO BURROWS HARDWOOD FLOOR INSTALLER Ot N64.4 04/07/2015 DARÍO BURROWS HARDWOOD FLOOR INSTALLER Ot N63 04/07/2015 DARÍO BURROWS HARDWOOD FLOOR INSTALLER Ot R92.8 04/07/2015 GAMALIEL MURRAY, CEE Konstantin [...] Pryor Ot R92.8 04/07/2015 KITTY SANDRA S COMPENSATION ADMINISTRATOR Ot C50.511 04/07/2015 KARIN TANGSINGH S COMPENSATION ADMINISTRATOR Ot E66.9 04/07/2015 KITTY SANDRA S COMPENSATION ADMINISTRATOR Ot E78.5 04/07/2015 KITTY SANDRA S COMPENSATION ADMINISTRATOR Ot F17.210 04/07/2015 KITTY SANDRA S COMPENSATION ADMINISTRATOR Ot F31.9 04/07/2015 KITTY SANDRA S COMPENSATION ADMINISTRATOR Ot I10 04/07/2015 KITTY SANDRA S COMPENSATION ADMINISTRATOR Ot J44.9 04/07/2015 KITTY SANDRA S COMPENSATION ADMINISTRATOR Ot Z17.1 04/07/2015 KITTY SANDRA S COMPENSATION ADMINISTRATOR Ot Z68.35 04/07/2015 KITTY SANDRA S COMPENSATION ADMINISTRATOR Ot Z79.899 04/07/2015 GAMALIEL MURRAY, CEE Pryor [...] NICOTINE DEPENDENCE, CIGARETTES, UNCOMPL 04/14/2015 GAMALIEL MURRAY, ECE Pryor Ot F31.9 BIPOLAR DISORDER, UNSPECIFIED 04/14/2015 [...] GAMALIEL MURRAY, CEE Pryor Ot Z79.899 OTHER CUSTODIAL (CURRENT) DRUG THERAPY 04/21/2015 GAMALIEL MURRAY, CEE Pryor Ot C50.411 04/21/2015 GAMALIEL MURRAY, CEE Pyror Ot E66.9 04/21/2015 GAMALIEL MURRAY, CEE Pryor [...] SANDRA TANG Ot C50.511 04/29/2015 SANDRA TANG COMPENSATION ADMINISTRATOR Ot Z79.899 04/30/2015 GAMALIEL MURRAY, CEE Pryor [...] CEE Pryor Ot Z51.81 06/17/2015 DARÍO BURROWS H[employer]WO[employer] FLOOR INSTALLER Ot 784.2 SWELLING IN HEAD NECK 06/17/2015 SHERRY ROGEL MD (DDU) Ot Z02.71 ENCOUNTER FOR DISABILITY DETERMINATION 06/17/2015 DARÍO BURROWS HARDWOOD FLOOR INSTALLER Ot N64.4 MASTODYNIA 06/17/2015 DARÍO BURROWS HARDWOOD FLOOR INSTALLER Ot N63 UNSPECIFIED LUMP IN BREAST 06/17/2015 DARÍO BURROWS APRN Ot R92.8 OTH ABN AND INCONCLUSIVE FINDINGS ON DX 06/17/2015 GAMALIEL MURRAY, CEE Pryor Ot C50.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 06/17/2015 GAMALIEL MURRAY, CEE Pryor Ot Z51.81 ENCOUNTER FOR THERAPEUTIC DRUG LEVEL MON 06/17/2015 CEE ALSTON MD Ot Z79.899 OTHER CUSTODIAL (CURRENT) DRUG THERAPY 06/17/2015 CEE ALSTON MD Ot 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 06/17/2015 CEE ALSTON MD Ot R92.8 OTH ABN AND INCONCLUSIVE FINDINGS ON DX 06/17/2015 SANDRA TANG Cady COMPENSATION ADMINISTRATOR Ot 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 06/17/2015 SANDRA TANG S COMPENSATION ADMINISTRATOR Ot E66.9 OBESITY, UNSPECIFIED 06/17/2015 SANDRA TANG S COMPENSATION ADMINISTRATOR Ot E78.5 HYPERLIPIDEMIA, UNSPECIFIED 06/17/2015 KARIN TANGSINGH S COMPENSATION ADMINISTRATOR Ot F17.210 NICOTINE DEPENDENCE, CIGARETTES, UNCOMPL 06/17/2015 SANDRA TANG S COMPENSATION ADMINISTRATOR Ot F31.9 BIPOLAR DISORDER, UNSPECIFIED 06/17/2015 KARIN TANGSINGH S COMPENSATION ADMINISTRATOR Ot I10 ESSENTIAL (PRIMARY) HYPERTENSION 06/17/2015 SANDRA TANG S COMPENSATION ADMINISTRATOR Ot J44.9 CHRONIC OBSTRUCTIVE PULMONARY DISEASE, U 06/17/2015 SANDRA ATNG S COMPENSATION ADMINISTRATOR Ot Z17.1 ESTROGEN RECEPTOR NEGATIVE STATUS [ER-] 06/17/2015 SANDRA TANG S COMPENSATION ADMINISTRATOR Ot Z68.35 BODY MASS INDEX (BMI) 35.0-35.9, ADULT 06/17/2015 SANDRA TANG S COMPENSATION ADMINISTRATOR Ot Z79.899 OTHER EXTRUSION SUPERVISOR (CURRENT) DRUG THERAPY 06/17/2015 CEE ALSTON MD Ot 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 06/17/2015 CEE ALSTON MD Ot Z51.81 ENCOUNTER FOR THERAPEUTIC DRUG LEVEL MON 06/17/2015 CEE ALSTON MD Ot Z79.899 OTHER CUSTODIAL (CURRENT) DRUG THERAPY 06/17/2015 CEE ALSTON MD [...] 06/17/2015 CEE ALSTON MD Ot Z79.899 OTHER EXTRUSION SUPERVISOR (CURRENT) DRUG THERAPY 06/17/2015 SANDRA TANG Ot 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 06/17/2015 SANDRA TANG Ot Z79.899 OTHER EXTRUSION SUPERVISOR (CURRENT) DRUG THERAPY 06/17/2015 CEE ALSTON MD [...] 06/17/2015 CEE ALSTON MD Ot Z79.899 OTHER CUSTODIAL (CURRENT) DRUG THERAPY 06/17/2015 CEE ALSTON MD [...] 07/30/2015 CEE ALSTON MD, Ot Z79.899 OTHER EXTRUSION SUPERVISOR (CURRENT) DRUG THERAPY 07/31/2015 CEE ALSTON MD, [...] 07/31/2015 CEE ALSTON MD, Ot Z79.899 OTHER EXTRUSION SUPERVISOR (CURRENT) DRUG THERAPY 08/05/2015 CEE ALSTON MD, [...] 08/05/2015 CEE ALSTON MD Ot Z79.899 OTHER CUSTODIAL (CURRENT) DRUG THERAPY 01/01/2016 CEE ALSTON MD [...] 01/01/2016 CEE ALSTON MD Ot Z79.899 OTHER EXTRUSION SUPERVISOR (CURRENT) DRUG THERAPY 02/16/2016 DARÍO BURROWS HARDWOOD FLOOR INSTALLER Ot 784.2 SWELLING IN HEAD NECK 02/16/2016 SHERRY ROGEL MD (DDU) Ot Z02.71 ENCOUNTER FOR DISABILITY DETERMINATION 02/16/2016 DARÍO BURROWS HARDWOOD FLOOR INSTALLER Ot N64.4 MASTODYNIA 02/16/2016 DARÍO BURROWS HARDWOOD FLOOR INSTALLER Ot N63 UNSPECIFIED LUMP IN BREAST 02/16/2016 DARÍO BURROWS APRN Ot R92.8 OTH ABN AND INCONCLUSIVE FINDINGS ON DX 02/16/2016 CEE ALSTON MD Ot C50.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 02/16/2016 CEE ALSTON MD Ot Z51.81 ENCOUNTER FOR THERAPEUTIC DRUG LEVEL MON 02/16/2016 CEE ALSTON MD Ot Z79.899 OTHER EXTRUSION SUPERVISOR (CURRENT) DRUG THERAPY 02/16/2016 CEE ALSTON MD Ot 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 02/16/2016 CEE ALSTON MD, Ot R92.8 OTH ABN AND INCONCLUSIVE FINDINGS ON DX 02/16/2016 SANDRA TANG COMPENSATION ADMINISTRATOR Ot 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 02/16/2016 SANDRA TANG COMPENSATION ADMINISTRATOR Ot E66.9 OBESITY, UNSPECIFIED 02/16/2016 SANDRA TANG S COMPENSATION ADMINISTRATOR Ot E78.5 HYPERLIPIDEMIA, UNSPECIFIED 02/16/2016 SANDRA TANG COMPENSATION ADMINISTRATOR Ot F17.210 NICOTINE DEPENDENCE, CIGARETTES, UNCOMPL 02/16/2016 SANDRA TANG COMPENSATION ADMINISTRATOR Ot F31.9 BIPOLAR DISORDER, UNSPECIFIED 02/16/2016 SANDRA TANG S COMPENSATION ADMINISTRATOR Ot I10 ESSENTIAL (PRIMARY) HYPERTENSION 02/16/2016 SANDRA TANG COMPENSATION ADMINISTRATOR Ot J44.9 CHRONIC OBSTRUCTIVE PULMONARY DISEASE, U 02/16/2016 SANDRA TANG S COMPENSATION ADMINISTRATOR Ot Z17.1 ESTROGEN RECEPTOR NEGATIVE STATUS [ER-] 02/16/2016 SANDRA TANG COMPENSATION ADMINISTRATOR Ot Z68.35 BODY MASS INDEX (BMI) 35.0-35.9, ADULT 02/16/2016 SANDRA TANG COMPENSATION ADMINISTRATOR Ot Z79.899 OTHER CUSTODIAL (CURRENT) DRUG THERAPY 02/16/2016 CEE ALSTON MD Ot 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 02/16/2016 CEE ALSTON MD Ot Z51.81 ENCOUNTER FOR THERAPEUTIC DRUG LEVEL MON 02/16/2016 CEE ALSTON MD Ot Z79.899 OTHER EXTRUSION SUPERVISOR (CURRENT) DRUG THERAPY 02/16/2016 CEE ALSTON MD [...] GAMALIEL MURRAY CEE Konstantin Ot Z79.899 OTHER CUSTODIAL (CURRENT) DRUG THERAPY 02/16/2016 SANDRA ATNG Ot 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 02/16/2016 SANDRA TANG Ot Z79.899 OTHER EXTRUSION SUPERVISOR (CURRENT) DRUG THERAPY 02/16/2016 GAMALIEL MURRAY CEE [...] 02/16/2016 EULOGIO BRAGA MD, Ot Z79.899 OTHER EXTRUSION SUPERVISOR (CURRENT) DRUG THERAPY 02/16/2016 DARÍO BURROWS APRN Ot 784.2 SWELLING IN HEAD NECK 02/16/2016 SHERRY ROGEL MD ([facility]) Ot Z02.71 ENCOUNTER FOR DISABILITY [...] 02/16/2016 CEE ALSTON MD Ot Z79.899 OTHER EXTRUSION SUPERVISOR (CURRENT) DRUG THERAPY 02/16/2016 CEE ALSTON MD Ot 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 02/16/2016 CEE ALSTON MD Ot R92.8 OTH ABN AND INCONCLUSIVE FINDINGS ON DX 02/16/2016 SANDRA TANG COMPENSATION ADMINISTRATOR Ot 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 02/16/2016 SANDRA TANG S COMPENSATION ADMINISTRATOR Ot E66.9 OBESITY, UNSPECIFIED 02/16/2016 SANDRA TANG S COMPENSATION ADMINISTRATOR Ot E78.5 HYPERLIPIDEMIA, UNSPECIFIED 02/16/2016 SANDRA TANG S COMPENSATION ADMINISTRATOR Ot F17.210 NICOTINE DEPENDENCE, CIGARETTES, UNCOMPL 02/16/2016 SANDRA TANG S COMPENSATION ADMINISTRATOR Ot F31.9 BIPOLAR DISORDER, UNSPECIFIED 02/16/2016 SANDRA TANG S COMPENSATION ADMINISTRATOR Ot I10 ESSENTIAL (PRIMARY) HYPERTENSION 02/16/2016 SANDRA TANG COMPENSATION ADMINISTRATOR Ot J44.9 CHRONIC OBSTRUCTIVE PULMONARY DISEASE, U 02/16/2016 SANDRA TANG S COMPENSATION ADMINISTRATOR Ot Z17.1 ESTROGEN RECEPTOR NEGATIVE STATUS [ER-] 02/16/2016 SANDRA TANG S COMPENSATION ADMINISTRATOR Ot Z68.35 BODY MASS INDEX (BMI) 35.0-35.9, ADULT 02/16/2016 SANDRA TANG S COMPENSATION ADMINISTRATOR Ot Z79.899 OTHER EXTRUSION SUPERVISOR (CURRENT) DRUG THERAPY 02/16/2016 CEE ALSTON MD Ot 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 02/16/2016 CEE ALSTON MD Ot Z51.81 ENCOUNTER FOR THERAPEUTIC DRUG LEVEL MON 02/16/2016 CEE ALSTON MD Ot Z79.899 OTHER EXTRUSION SUPERVISOR (CURRENT) DRUG THERAPY 02/16/2016 CEE ALSTON MD [...] 02/16/2016 CEE ALSTON MD Ot Z79.899 OTHER EXTRUSION SUPERVISOR (CURRENT) DRUG THERAPY 02/16/2016 SANDRA TANG Ot 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 02/16/2016 SANDRA TANG Ot Z79.899 OTHER CUSTODIAL (CURRENT) DRUG THERAPY 02/16/2016 CEE ALSTON MD [...] 02/16/2016 EULOGIO BRAGA MD Ot Z79.899 OTHER EXTRUSION SUPERVISOR (CURRENT) DRUG THERAPY 02/16/2016 EDIL QURESHI Ot F17.210 NICOTINE DEPENDENCE, CIGARETTES, UNCOMPL 02/16/2016 EDIL QURESHI Ot F41.9 ANXIETY DISORDER, UNSPECIFIED 02/16/2016 EDIL QURESHI Ot I10 ESSENTIAL (PRIMARY) HYPERTENSION 02/16/2016 EDIL QURESHI Ot Z95.9 PRESENCE OF CARDIAC AND VASCULAR IMPLANT 02/16/2016 DARÍO BURROWS APRN Ot 784.2 SWELLING IN HEAD NECK 02/16/2016 SHERRY ROGEL MD ([facility]) Ot Z02.71 ENCOUNTER FOR DISABILITY DETERMINATION 02/16/2016 DARÍO BURROWS [employer] INSTALLER Ot N64.4 MASTODYNIA 02/16/2016 DARÍO BURROWS [employer] INSTALLER Ot N63 UNSPECIFIED LUMP IN BREAST 02/16/2016 DARÍO BURROWS APRN Ot R92.8 OTH ABN AND INCONCLUSIVE FINDINGS ON DX 02/16/2016 CEE ALSTON MD Ot C50.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 02/16/2016 CEE ALSTON MD Ot Z51.81 ENCOUNTER FOR THERAPEUTIC DRUG LEVEL MON 02/16/2016 CEE ALSTON MD Ot Z79.899 OTHER EXTRUSION SUPERVISOR (CURRENT) DRUG THERAPY 02/16/2016 CEE ALSTON MD [...] ADULT 02/16/2016 SANDRA TANG Ot Z79.899 OTHER CUSTODIAL (CURRENT) DRUG THERAPY 02/16/2016 CEE ALSTON MD Ot 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 02/16/2016 CEE ALSTON MD Ot Z51.81 ENCOUNTER FOR THERAPEUTIC DRUG LEVEL MON 02/16/2016 CEE ALSTON MD Ot Z79.899 OTHER EXTRUSION SUPERVISOR (CURRENT) DRUG THERAPY 02/16/2016 CEE ALSTON MD [...] 02/16/2016 CEE ALSTON MD Ot Z79.899 OTHER EXTRUSION SUPERVISOR (CURRENT) DRUG THERAPY 02/16/2016 SANDRA TANG Ot 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 02/16/2016 SANDRA TANG Ot Z79.899 OTHER CUSTODIAL (CURRENT) DRUG THERAPY 02/16/2016 CEE ALSTON MD [...] 02/16/2016 EULOGIO BRAGA MD, Ot Z79.899 OTHER EXTRUSION SUPERVISOR (CURRENT) DRUG THERAPY 02/17/2016 EDIL QURESHI Ot [...] 03/01/2016 CEE ALSTON MD Ot Z79.899 OTHER EXTRUSION SUPERVISOR (CURRENT) DRUG THERAPY 03/01/2016 CEE ALSTON MD Ot 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 03/01/2016 CEE ALSTON MD Ot R92.8 OTH ABN AND INCONCLUSIVE FINDINGS ON DX 03/01/2016 SANDRA TANG Ot 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 03/01/2016 SANDRA TANG Ot E66.9 OBESITY, UNSPECIFIED 03/01/2016 SANDRA TANG COMPENSATION ADMINISTRATOR Ot E78.5 HYPERLIPIDEMIA, UNSPECIFIED 03/01/2016 SANDRA TANG COMPENSATION ADMINISTRATOR Ot F17.210 NICOTINE DEPENDENCE, CIGARETTES, UNCOMPL 03/01/2016 SANDRA TANG COMPENSATION ADMINISTRATOR Ot F31.9 BIPOLAR DISORDER, UNSPECIFIED 03/01/2016 SANDRA TANG COMPENSATION ADMINISTRATOR Ot I10 ESSENTIAL (PRIMARY) HYPERTENSION 03/01/2016 SANDRA TANGP Ot J44.9 CHRONIC OBSTRUCTIVE PULMONARY DISEASE, U 03/01/2016 SANDRA TANG COMPENSATION ADMINISTRATOR Ot Z17.1 ESTROGEN RECEPTOR NEGATIVE STATUS [ER-] 03/01/2016 SANDRA TANG COMPENSATION ADMINISTRATOR Ot Z68.35 BODY MASS INDEX (BMI) 35.0-35.9, ADULT 03/01/2016 SANDRA TANGP Ot Z79.899 OTHER CUSTODIAL (CURRENT) DRUG THERAPY 03/01/2016 CEE ALSTON MD Ot 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 03/01/2016 CEE ALSTON MD Ot Z51.81 ENCOUNTER FOR THERAPEUTIC DRUG LEVEL MON 03/01/2016 CEE ALSTON MD Ot Z79.899 OTHER EXTRUSION SUPERVISOR (CURRENT) DRUG THERAPY 03/01/2016 CEE ALSTON MD [...] 03/01/2016 CEE ALSTON MD Ot Z79.899 OTHER EXTRUSION SUPERVISOR (CURRENT) DRUG THERAPY 03/01/2016 SANDRA TANG Ot 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 03/01/2016 SANDRA TANG Ot Z79.899 OTHER EXTRUSION SUPERVISOR (CURRENT) DRUG THERAPY 03/01/2016 CEE ALSTON MD Ot 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 03/01/2016 CEE ALSTON MD Ot Z51.81 ENCOUNTER FOR THERAPEUTIC DRUG LEVEL MON 03/01/2016 DARÍO BURROWS [employer] FLOOR INSTALLER Ot 784.2 SWELLING IN HEAD NECK 03/01/2016 SHERRY ROGEL MD ([facility]) Ot Z02.71 ENCOUNTER FOR DISABILITY DETERMINATION 03/01/2016 DARÍO BURROWS [employer] FLOOR INSTALLER Ot N64.4 MASTODYNIA 03/01/2016 DARÍO BURROWS [employer] FLOOR INSTALLER Ot N63 UNSPECIFIED LUMP IN BREAST 03/01/2016 DARÍO BURROWS [employer] FLOOR INSTALLER Ot R92.8 OTH ABN AND INCONCLUSIVE FINDINGS ON DX 03/01/2016 CEE ALSTON MD Ot C50.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 03/01/2016 CEE ALSTON MD Ot Z51.81 ENCOUNTER FOR THERAPEUTIC DRUG LEVEL MON 03/01/2016 CEE ALSTON MD Ot Z79.899 OTHER EXTRUSION SUPERVISOR (CURRENT) DRUG THERAPY 03/01/2016 CEE ALSTON MD [...] ADULT 03/01/2016 SANDRA TANG Ot Z79.899 OTHER CUSTODIAL (CURRENT) DRUG THERAPY 03/01/2016 CEE ALSTON MD Ot 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 03/01/2016 CEE ALSTON MD Ot Z51.81 ENCOUNTER FOR THERAPEUTIC DRUG LEVEL MON 03/01/2016 CEE ALSTON MD Ot Z79.899 OTHER CUSTODIAL (CURRENT) DRUG THERAPY 03/01/2016 CEE ALSTON MD [...] 03/01/2016 CEE ALSTON MD Ot Z79.899 OTHER EXTRUSION SUPERVISOR (CURRENT) DRUG THERAPY 03/01/2016 SANDRA TANG Ot 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 03/01/2016 SANDRA TANG Ot Z79.899 OTHER EXTRUSION SUPERVISOR (CURRENT) DRUG THERAPY 03/01/2016 CEE ALSTON MD [...] MON 03/02/2016 ADE FOWLER Ot Z79.899 OTHER EXTRUSION SUPERVISOR (CURRENT) DRUG THERAPY 03/02/2016 ADE FOWLER Ot Z51.81 ENCOUNTER FOR THERAPEUTIC DRUG LEVEL MON 03/02/2016 ADE FOWLER Ot Z79.899 OTHER CUSTODIAL (CURRENT) DRUG THERAPY 03/04/2016 ADE FOWLER Ot Z51.81 ENCOUNTER FOR THERAPEUTIC DRUG LEVEL MON 03/04/2016 ADE FOWLER Ot Z79.899 OTHER CUSTODIAL (CURRENT) DRUG THERAPY 03/04/2016 KAYLA MELENDEZ APRN Ot C50.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 03/04/2016 KAYLA MELENDEZ APRN Ot F17.210 NICOTINE DEPENDENCE, CIGARETTES, UNCOMPL 03/04/2016 KAYLA MELENDEZ [employer]LOOR INSTALLER Ot I10 ESSENTIAL (PRIMARY) HYPERTENSION 03/04/2016 KAYLA MELENDEZ APRN Ot J44.9 CHRONIC OBSTRUCTIVE PULMONARY DISEASE, U 03/04/2016 KAYLA MELENDEZ APRN Ot N61.0 MASTITIS WITHOUT ABSCESS 03/04/2016 KAYLA MELENDEZ APRN Ot Z79.899 OTHER EXTRUSION SUPERVISOR (CURRENT) DRUG THERAPY 03/04/2016 KAYLA MELENDEZ APRN [...] 03/05/2016 KAYLA MELENDEZ APRN Ot Z79.899 OTHER EXTRUSION SUPERVISOR (CURRENT) DRUG THERAPY 03/05/2016 KAYLA MELENDEZ APRN Ot Z90.11 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 03/07/2016 ADE FOWLER Ot Z51.81 ENCOUNTER FOR THERAPEUTIC DRUG LEVEL MON 03/07/2016 ADE FOWLER Ot Z79.899 OTHER CUSTODIAL (CURRENT) DRUG THERAPY 03/18/2016 ADE FOWLER Ot Z51.81 ENCOUNTER FOR THERAPEUTIC DRUG LEVEL MON 03/18/2016 ADE FOWLER Ot Z79.899 OTHER CUSTODIAL (CURRENT) DRUG THERAPY 04/19/2016 DARÍO BURROWS [employer]LOOR INSTALLER Ot 784.2 SWELLING IN HEAD NECK 04/19/2016 SHERRY ROGEL MD ([facility]) Ot Z02.71 ENCOUNTER FOR DISABILITY DETERMINATION 04/19/2016 BURROWSDARÍO Avelino [employer] FLOOR INSTALLER Ot N64.4 MASTODYNIA 04/19/2016 DARÍO BURROWS [employer] FLOOR INSTALLER Ot N63 UNSPECIFIED LUMP IN BREAST 04/19/2016 ROB BURROWSFER Avelino [employer] FLOOR INSTALLER Ot R92.8 OTH ABN AND INCONCLUSIVE FINDINGS ON DX 04/19/2016 CEE ALSTON MD Ot C50.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 04/19/2016 CEE ALSTON MD Ot Z51.81 ENCOUNTER FOR THERAPEUTIC DRUG LEVEL MON 04/19/2016 CEE ALTSON MD Ot Z79.899 OTHER CUSTODIAL (CURRENT) DRUG THERAPY 04/19/2016 CEE ALSTON MD, Ot 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 04/19/2016 CEE ALSTON MD Ot R92.8 OTH ABN AND INCONCLUSIVE FINDINGS ON DX 04/19/2016 SANDRA TANGP Ot 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 04/19/2016 SANDRA TANG COMPENSATION ADMINISTRATOR Ot E66.9 OBESITY, UNSPECIFIED 04/19/2016 SANDRA TANGP Ot E78.5 HYPERLIPIDEMIA, UNSPECIFIED 04/19/2016 SANDRA TANG COMPENSATION ADMINISTRATOR Ot F17.210 NICOTINE DEPENDENCE, CIGARETTES, UNCOMPL 04/19/2016 SANDRA TANG COMPENSATION ADMINISTRATOR Ot F31.9 BIPOLAR DISORDER, UNSPECIFIED 04/19/2016 SANDRA TANGP Ot I10 ESSENTIAL (PRIMARY) HYPERTENSION 04/19/2016 SANDRA TANGP Ot J44.9 CHRONIC OBSTRUCTIVE PULMONARY DISEASE, U 04/19/2016 SANDRA TANGP Ot Z17.1 ESTROGEN RECEPTOR NEGATIVE STATUS [ER-] 04/19/2016 SANDRA TANGP Ot Z68.35 BODY MASS INDEX (BMI) 35.0-35.9, ADULT 04/19/2016 SANDRA TANG COMPENSATION ADMINISTRATOR Ot Z79.899 OTHER CUSTODIAL (CURRENT) DRUG THERAPY 04/19/2016 CEE ALSTON MD Ot 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 04/19/2016 CEE ALSTON MD Ot Z51.81 ENCOUNTER FOR THERAPEUTIC DRUG LEVEL MON 04/19/2016 CEE ALSTON MD Ot Z79.899 OTHER EXTRUSION SUPERVISOR (CURRENT) DRUG THERAPY 04/19/2016 CEE ALSTON MD [...] 04/19/2016 CEE ALSTON MD Ot Z79.899 OTHER CUSTODIAL (CURRENT) DRUG THERAPY 04/19/2016 SANDRA TANG Ot C50.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 04/19/2016 SANDRA TANG Ot Z79.899 OTHER EXTRUSION SUPERVISOR (CURRENT) DRUG THERAPY 04/19/2016 CEE ALSTON MD [...] 05/06/2016 OMI MURRAY, EULOGIO Ot Z79.899 OTHER CUSTODIAL (CURRENT) DRUG THERAPY 05/06/2016 STORMY DARÍO A [employer]LOOR INSTALLER Ot 784.2 SWELLING IN HEAD NECK 05/06/2016 PEBBLES MURRAY, SHERRY You ([facility]) Ot Z02.71 ENCOUNTER FOR DISABILITY DETERMINATION 05/06/2016 DARÍO BURROWS [employer]LOOR INSTALLER Ot N64.4 MASTODYNIA 05/06/2016 DARÍO BURROWS [employer] FLOOR INSTALLER Ot N63 UNSPECIFIED LUMP IN BREAST 05/06/2016 DARÍO BURROWS [employer] FLOOR INSTALLER Ot R92.8 OTH ABN AND INCONCLUSIVE FINDINGS ON DX 05/06/2016 CEE ALSTON MD Ot C50.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 05/06/2016 CEE ALSTON MD Ot Z51.81 ENCOUNTER FOR THERAPEUTIC DRUG LEVEL MON 05/06/2016 CEE ALSTON MD Ot Z79.899 OTHER EXTRUSION SUPERVISOR (CURRENT) DRUG THERAPY 05/06/2016 CEE ALSTON MD Ot C50.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 05/06/2016 CEE ALSTON MD Ot R92.8 OTH ABN AND INCONCLUSIVE FINDINGS ON DX 05/06/2016 SANDRA TANG Ot C50.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 05/06/2016 SANDRA TANG COMPENSATION ADMINISTRATOR Ot E66.9 OBESITY, UNSPECIFIED 05/06/2016 SANDRA TANG COMPENSATION ADMINISTRATOR Ot E78.5 HYPERLIPIDEMIA, UNSPECIFIED 05/06/2016 SANDRA TANG COMPENSATION ADMINISTRATOR Ot F17.210 NICOTINE DEPENDENCE, CIGARETTES, UNCOMPL 05/06/2016 SANDRA TANG COMPENSATION ADMINISTRATOR Ot F31.9 BIPOLAR DISORDER, UNSPECIFIED 05/06/2016 SANDRA TANG COMPENSATION ADMINISTRATOR Ot I10 ESSENTIAL (PRIMARY) HYPERTENSION 05/06/2016 SANDRA TANGP Ot J44.9 CHRONIC OBSTRUCTIVE PULMONARY DISEASE, U 05/06/2016 SANDRA TANG COMPENSATION ADMINISTRATOR Ot Z17.1 ESTROGEN RECEPTOR NEGATIVE STATUS [ER-] 05/06/2016 SANDRA TANG COMPENSATION ADMINISTRATOR Ot Z68.35 BODY MASS INDEX (BMI) 35.0-35.9, ADULT 05/06/2016 SANDRA TANG COMPENSATION ADMINISTRATOR Ot Z79.899 OTHER EXTRUSION SUPERVISOR (CURRENT) DRUG THERAPY 05/06/2016 CEE ALSTON MD Ot 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 05/06/2016 CEE ALSTON MD Ot Z51.81 ENCOUNTER FOR THERAPEUTIC DRUG LEVEL MON 05/06/2016 CEE ALSTON MD Ot Z79.899 OTHER EXTRUSION SUPERVISOR (CURRENT) DRUG THERAPY 05/06/2016 CEE ALSTON MD [...] 05/06/2016 CEE ALSTON MD Ot Z79.899 OTHER EXTRUSION SUPERVISOR (CURRENT) DRUG THERAPY 05/06/2016 SANDRA TANG COMPENSATION ADMINISTRATOR Ot 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 05/06/2016 SANDRA TANG Ot Z79.899 OTHER EXTRUSION SUPERVISOR (CURRENT) DRUG THERAPY 05/06/2016 CEE ALSTON MD [...] 05/06/2016 EULOGIO BRAGA MD, Ot Z79.899 OTHER EXTRUSION SUPERVISOR (CURRENT) DRUG THERAPY 05/24/2016 ADE FOWLER Ot Z51.81 ENCOUNTER FOR THERAPEUTIC DRUG LEVEL MON 05/24/2016 ADE FOWLER Ot Z79.899 OTHER EXTRUSION SUPERVISOR (CURRENT) DRUG THERAPY 05/25/2016 EULOGIO BRAGA MD, [...] 05/25/2016 EULOGIO BRAGA MD, Ot Z79.899 OTHER CUSTODIAL (CURRENT) DRUG THERAPY 05/25/2016 ABAD MURRAY MD, [...] LEVEL MON 05/26/2016 JANETHADE Ot Z79.899 OTHER CUSTODIAL (CURRENT) DRUG THERAPY 05/26/2016 KARLIE ZHU MD [...] 05/26/2016 KARLIE ZHU MD Ot Z79.899 OTHER CUSTODIAL (CURRENT) DRUG THERAPY 05/26/2016 KARLIE ZHU MD [...] 05/27/2016 KARLIE ZHU MD Ot Z79.899 OTHER CUSTODIAL (CURRENT) DRUG THERAPY 05/27/2016 KARLIE ZHU MD [...] 06/28/2016 YANG ELKINS MD Ot Z79.899 OTHER CUSTODIAL (CURRENT) DRUG THERAPY 06/28/2016 YANG ELKINS MD [...] 07/19/2016 EULOGIO BRAGA MD, Ot Z79.899 OTHER EXTRUSION SUPERVISOR (CURRENT) DRUG THERAPY 07/21/2016 XUN MD, PIRES-DENEEN Ot C50.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 07/21/2016 EULOGIO BRAGA MD Ot E66.9 OBESITY, UNSPECIFIED 07/21/2016 EULOGIO BRAGA MD Ot E78.5 HYPERLIPIDEMIA, UNSPECIFIED 07/21/2016 EULOGIO BRAGA MD Ot F17.210 NICOTINE DEPENDENCE, CIGARETTES, UNCOMPL 07/21/2016 EULOGIO BRAGA MD Ot F31.9 BIPOLAR DISORDER, UNSPECIFIED 07/21/2016 EULOGIO BRGAA MD Ot I10 ESSENTIAL (PRIMARY) HYPERTENSION 07/21/2016 EULOGIO BRAGA MD Ot J44.9 CHRONIC OBSTRUCTIVE PULMONARY DISEASE, U 07/21/2016 EULOGIO BRAGA MD Ot Z17.0 ESTROGEN RECEPTOR POSITIVE STATUS [ER+] 07/21/2016 EULOGIO BRAGA MD Ot Z68.34 BODY MASS INDEX (BMI) 34.0-34.9, ADULT 07/21/2016 EULOGIO BRAGA MD Ot Z79.899 OTHER EXTRUSION SUPERVISOR (CURRENT) DRUG THERAPY 08/23/2016 EULOGIO RBAGA MD Ot C50.411 MALIG NEOPLM OF UPPER-OUTER [...] 08/23/2016 EULOGIO BRAGA MD Ot Z79.899 OTHER EXTRUSION SUPERVISOR (CURRENT) DRUG THERAPY 10/18/2016 EULOGIO BRAGA MD [...] 10/18/2016 EULOGIO BRAGA MD Ot Z79.899 OTHER CUSTODIAL (CURRENT) DRUG THERAPY 12/29/2016 ADE FOWLER Ot Z51.81 ENCOUNTER FOR THERAPEUTIC DRUG LEVEL [facility] 12/29/2016 ADE FOWLER Ot Z79.899 OTHER CUSTODIAL (CURRENT) DRUG THERAPY 12/29/2016 EULOGIO BRAGA MD [...] 12/29/2016 EULOGIO BRAGA MD Ot Z79.899 OTHER CUSTODIAL (CURRENT) DRUG THERAPY 12/29/2016 JEFFREY BALL EMILY [...] 01/03/2017 EULOGIO BRAGA MD Ot Z79.899 OTHER EXTRUSION SUPERVISOR (CURRENT) DRUG THERAPY 01/07/2017 KAYLA MELENDEZ APRN [...] Ot R11.2 NAUSEA WITH VOMITING, UNSPECIFIED 01/07/2017 KALYA MELENDEZ APRN Ot Z87.59 PERSONAL HISTORY OF [...] 01/21/2017 EULOGIO BRAGA MD, Ot Z79.899 OTHER CUSTODIAL (CURRENT) DRUG THERAPY 03/27/2017 KARLIE ZHU MD [...] HEADACHE 03/27/2017 KARLIE ZHU MD, Ot Z79.52 CUSTODIAL (CURRENT) USE OF SYSTEMIC STER 03/27/2017 KARLIE [...] 03/29/2017 EULOGIO BRAGA MD, Ot Z79.899 OTHER CUSTODIAL (CURRENT) DRUG THERAPY 03/29/2017 MARKO MD, KARLIE [...] HEADACHE 03/29/2017 KARLIE ZHU MD, Ot Z79.52 CUSTODIAL (CURRENT) USE OF SYSTEMIC STER 03/29/2017 KARLIE [...] 03/30/2017 EULOGIO BRAGA MD, Ot Z79.899 OTHER CUSTODIAL (CURRENT) DRUG THERAPY 05/20/2017 ADE FOWLER Ot Z51.81 ENCOUNTER FOR THERAPEUTIC DRUG LEVEL MON 05/20/2017 ADE FOWLER Ot Z79.899 OTHER EXTRUSION SUPERVISOR (CURRENT) DRUG THERAPY 05/20/2017 EULOGIO BRAGA MD, [...] 05/20/2017 EULOGIO BRAGA MD, Ot Z79.899 OTHER CUSTODIAL (CURRENT) DRUG THERAPY 05/20/2017 ADE FOWLER Ot Z51.81 ENCOUNTER FOR THERAPEUTIC DRUG LEVEL MON 05/20/2017 ADE FOWLER Ot Z79.899 OTHER EXTRUSION SUPERVISOR (CURRENT) DRUG THERAPY 05/20/2017 EULOGIO BRAGA MD [...] 05/20/2017 EULOGIO BRAGA MD, Ot Z79.899 OTHER CUSTODIAL (CURRENT) DRUG THERAPY 05/20/2017 JEFFREY DO EMILY [...] MON 05/20/2017 ADE FOWLER Ot Z79.899 OTHER EXTRUSION SUPERVISOR (CURRENT) DRUG THERAPY 05/20/2017 EULOGIO BRAGA MD, [...] 05/20/2017 EULOGIO BRAGA MD, Ot Z79.899 OTHER CUSTODIAL (CURRENT) DRUG THERAPY 05/21/2017 NOELLE MAK MD [...] MON 05/21/2017 ADE FOWLER Ot Z79.899 OTHER CUSTODIAL (CURRENT) DRUG THERAPY 05/21/2017 EULOGIO BRAGA MD [...] 05/21/2017 EULOGIO BRAGA MD, Ot Z79.899 OTHER EXTRUSION SUPERVISOR (CURRENT) DRUG THERAPY 05/23/2017 EMILY MURPHY DO [...] PAIN 06/03/2017 KAYLA MELENDEZ APRN Ot Z79.52 EXTRUSION SUPERVISOR (CURRENT) USE OF SYSTEMIC STER 06/03/2017 KAYLA [...] Ot R07.89 OTHER CHEST PAIN 06/06/2017 KAYLA MEELNDEZ APRN Ot Z79.52 CUSTODIAL (CURRENT) USE OF SYSTEMIC STER 06/06/2017 KAYLA [...] PAIN 06/09/2017 KAYLA MELENDEZ APRN Ot Z79.52 EXTRUSION SUPERVISOR (CURRENT) USE OF SYSTEMIC STER 06/09/2017 KAYLA [...] UNSPECIFIED 06/29/2017 KAYLA MELENDEZ APRN Ot Z79.52 CUSTODIAL (CURRENT) USE OF SYSTEMIC STER 06/29/2017 KAYLA MELENDEZ APRN Ot Z87.59 PERSONAL HISTORY OF COMP OF PREG, CHLDBR 06/29/2017 KAYLA MELENDEZ APRN Ot Z90.13 ACQUIRED ABSENCE OF BILATERAL BREASTS AN 06/29/2017 KAYLA MELENDEZ APRN Ot Z92.21 PERSONAL HISTORY OF ANTINEOPLASTIC CHEMO 06/29/2017 ADE FOWLER Ot Z51.81 ENCOUNTER FOR THERAPEUTIC DRUG LEVEL MON 06/29/2017 ADE FOWLER Ot Z79.899 OTHER CUSTODIAL (CURRENT) DRUG THERAPY 06/29/2017 EULOGIO BRAGA MD [...] 06/29/2017 EULOGIO BRAGA MD, Ot Z79.899 OTHER CUSTODIAL (CURRENT) DRUG THERAPY 07/01/2017 KAYLA MELENDEZ APRN [...] UNSPECIFIED 07/01/2017 KAYLA MELENDEZ APRN Ot Z79.52 CUSTODIAL (CURRENT) USE OF SYSTEMIC STER 07/01/2017 KAYLA [...] PAIN 07/04/2017 ZEKE ARCHER MD Ot Z79.52 CUSTODIAL (CURRENT) USE OF SYSTEMIC STER 07/04/2017 ZEKE [...] PAIN 07/06/2017 ZEKE ARCHER MD Ot Z79.52 CUSTODIAL (CURRENT) USE OF SYSTEMIC STER 07/06/2017 ZEKE [...] ZHU MD Ot R68.84 JAW PAIN 07/09/2017 KARLEI ZHU MD Ot Z77.22 CNTCT W AND [...] G89.29 OTHER CHRONIC PAIN 07/26/2017 KAYLA MELENDEZ [employer] FLOOR INSTALLER Ot I10 ESSENTIAL (PRIMARY) HYPERTENSION 07/26/2017 KAYLA MELENDEZ [employer] FLOOR INSTALLER Ot K21.9 GASTRO-ESOPHAGEAL REFLUX DISEASE WITHOUT 07/26/2017 KAYLA MELENDEZ [employer] FLOOR INSTALLER Ot R51 HEADACHE 07/26/2017 KAYLA MELENDEZ APRN Ot Z87.59 PERSONAL HISTORY OF COMP OF PREG, CHLDBR 07/26/2017 KAYLA MELENDEZ APRN Ot Z90.13 ACQUIRED ABSENCE OF BILATERAL BREASTS AN 07/26/2017 KAYLA MELENDEZ [employer]LO[employer] INSTALLER Ot Z90.49 ACQUIRED ABSENCE OF OTHER SPECIFIED PART 08/02/2017 MADELINE JONES COMPENSATION ADMINISTRATOR Ot C50.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 08/02/2017 MADELINE JONESP Ot C79.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 08/02/2017 MADELINE JONES COMPENSATION ADMINISTRATOR Ot E78.00 PURE HYPERCHOLESTEROLEMIA, UNSPECIFIED 08/02/2017 KAREN MADELINE COMPENSATION ADMINISTRATOR Ot F17.210 NICOTINE DEPENDENCE, CIGARETTES, UNCOMPL 08/02/2017 KAREN MADELINE COMPENSATION ADMINISTRATOR Ot F31.9 BIPOLAR DISORDER, UNSPECIFIED 08/02/2017 KAREN, MADELINE COMPENSATION ADMINISTRATOR Ot F41.9 ANXIETY DISORDER, UNSPECIFIED 08/02/2017 KAREN MADELINE COMPENSATION ADMINISTRATOR Ot 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) 08/02/2017 KAREN MADELINE COMPENSATION ADMINISTRATOR Ot I10 ESSENTIAL (PRIMARY) HYPERTENSION 08/02/2017 KAREN MADELINE COMPENSATION ADMINISTRATOR Ot J45.909 UNSPECIFIED ASTHMA, UNCOMPLICATED 08/02/2017 MADELINE JONES COMPENSATION ADMINISTRATOR Ot K21.9 GASTRO-ESOPHAGEAL REFLUX DISEASE WITHOUT 08/02/2017 KAREN MADELINE COMPENSATION ADMINISTRATOR Ot K62.5 HEMORRHAGE OF ANUS AND RECTUM 08/02/2017 KAREN MADELINE COMPENSATION ADMINISTRATOR Ot M06.9 RHEUMATOID ARTHRITIS, UNSPECIFIED 08/02/2017 KAREN MADELINE COMPENSATION ADMINISTRATOR Ot R19.5 OTHER FECAL ABNORMALITIES 08/02/2017 MADELINE JONES COMPENSATION ADMINISTRATOR Ot Z87.59 PERSONAL HISTORY OF COMP OF PREG, CHLDBR 08/02/2017 KAREN MADELINE COMPENSATION ADMINISTRATOR Ot Z90.13 ACQUIRED ABSENCE OF BILATERAL BREASTS AN 08/02/2017 MADELINE JONES COMPENSATION ADMINISTRATOR Ot Z90.89 ACQUIRED ABSENCE OF OTHER ORGANS 08/02/2017 MADELINE JONES COMPENSATION ADMINISTRATOR Ot Z92.21 PERSONAL HISTORY OF ANTINEOPLASTIC CHEMO 08/04/2017 KARENMADELINE Harding COMPENSATION ADMINISTRATOR Ot C50.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 08/04/2017 KARENMADELINE Harding Ot C79.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 08/04/2017 KARENMADELINE Harding COMPENSATION ADMINISTRATOR Ot E78.00 PURE HYPERCHOLESTEROLEMIA, UNSPECIFIED 08/04/2017 KARENMADELINE HardingP Ot F17.210 NICOTINE DEPENDENCE, CIGARETTES, UNCOMPL 08/04/2017 KARENMADELINE HardingP Ot F31.9 BIPOLAR DISORDER, UNSPECIFIED 08/04/2017 KARENMADELINE Harding COMPENSATION ADMINISTRATOR Ot F41.9 ANXIETY DISORDER, UNSPECIFIED 08/04/2017 KARENMADELINE Harding COMPENSATION ADMINISTRATOR Ot 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) 08/04/2017 KARENMADELINE HardingP Ot I10 ESSENTIAL (PRIMARY) HYPERTENSION 08/04/2017 KARENMADELINE Harding COMPENSATION ADMINISTRATOR Ot J45.909 UNSPECIFIED ASTHMA, UNCOMPLICATED 08/04/2017 KARENMADELINE HardingP Ot K21.9 GASTRO-ESOPHAGEAL REFLUX DISEASE WITHOUT 08/04/2017 KARENMADELINE Harding COMPENSATION ADMINISTRATOR Ot K62.5 HEMORRHAGE OF ANUS AND RECTUM 08/04/2017 KARENMADELINE Harding COMPENSATION ADMINISTRATOR Ot M06.9 RHEUMATOID ARTHRITIS, UNSPECIFIED 08/04/2017 KARENMADELINE Harding COMPENSATION ADMINISTRATOR Ot R19.5 OTHER FECAL ABNORMALITIES 08/04/2017 KARENMADELINE Harding COMPENSATION ADMINISTRATOR Ot Z87.59 PERSONAL HISTORY OF COMP OF PREG, CHLDBR 08/04/2017 KARENMADELINE Harding COMPENSATION ADMINISTRATOR Ot Z90.13 ACQUIRED ABSENCE OF BILATERAL BREASTS AN 08/04/2017 KARENMADELINE Harding COMPENSATION ADMINISTRATOR Ot Z90.89 ACQUIRED ABSENCE OF OTHER ORGANS 08/04/2017 KARENMADELINE Harding COMPENSATION ADMINISTRATOR Ot Z92.21 PERSONAL HISTORY OF ANTINEOPLASTIC CHEMO 08/20/2017 EMILY MURPHY DO Ot C50.919 MALIGNANT NEOPLASM OF UNSP SITE OF UNSPE 08/20/2017 EMILY MURPHY DO Ot C79.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 08/20/2017 EMILY MURPHY DO Ot E78.00 PURE HYPERCHOLESTEROLEMIA, UNSPECIFIED 08/20/2017 EMILY MURPHY DO Ot F17.210 NICOTINE DEPENDENCE, CIGARETTES, UNCOMPL 08/20/2017 EMILY MURPHY DO Ot F31.9 BIPOLAR DISORDER, UNSPECIFIED 08/20/2017 EMILY MURPHY DO Ot F60.9 PERSONALITY DISORDER, UNSPECIFIED 08/20/2017 EMILY MURPHY DO Ot I10 ESSENTIAL (PRIMARY) HYPERTENSION 08/20/2017 JEFFREY EMILY BALL Ot J31.0 CHRONIC RHINITIS 08/20/2017 EMILY MURPHY DO Ot J45.909 UNSPECIFIED ASTHMA, UNCOMPLICATED 08/20/2017 EMILY MURPHY DO Ot K21.9 GASTRO-ESOPHAGEAL REFLUX DISEASE WITHOUT 08/20/2017 EMILY MURPHY DO Ot M06.9 RHEUMATOID ARTHRITIS, UNSPECIFIED 08/20/2017 EMILY MURPHY DO Ot R04.0 EPISTAXIS 08/20/2017 EMILY MURPHY DO Ot Z85.828 PERSONAL HISTORY OF OTHER MALIGNANT NEOP 08/20/2017 EMILY MURPHY DO Ot Z87.59 PERSONAL HISTORY OF COMP OF PREG, CHLDBR 08/20/2017 EMILY MURPHY DO Ot Z90.49 ACQUIRED ABSENCE OF OTHER SPECIFIED PART Procedures There is no data. Results Test [...] INFLUENZA A AND B ANTIGENS BY [facility] Bacterial blood culture - 05/24/16 19:47 Bacterial blood culture [facility] Complete blood count (CBC) with [...] culture - 05/24/16 20:59 Bacterial urine culture [id number] NRG COLONY COUNT >100,000/ML NRG FTX;REPORTABLE PLUS, [...] NRG Blood erythrocyte morphology finding identification NORMAL [facility] Comprehensive metabolic panel - 05/26/16 13:34 Serum [...] Blood erythrocyte morphology finding identification NORMAL NR Complete blood count (CBC) with automated white [...] Status Pt. Type Provider Facility Loc./Unit Complaint [id number] 08/20/2017 09:31:00 08/20/2017 10:45:00 DIS Emergency EMILY MURPHY DO [facility] ER NOSE BLEED [id number] 08/02/2017 09:09:00 08/02/2017 12:06:00 DIS Emergency KAREN, MADELINE COMPENSATION ADMINISTRATOR [facility] ER BLOOD IN HER STOOL [id number] 07/26/2017 17:31:00 07/26/2017 18:51:00 DIS Emergency KAYLA MELENDEZ APRN [facility] ER GENERAL PAIN [id number] 07/12/2017 20:13:00 07/12/2017 22:30:00 DIS Emergency KAYLA MELENDEZ APRN [facility] ER FALL, ABD PAIN [id number] 07/09/2017 17:00:00 07/09/2017 19:23:00 DIS Emergency MARKO MURRAY, KARLIE Owens [facility] ER PT HAS BRAIN TUMOR, PAIN ALL OVER,JAW PAIN [id number] 07/04/2017 09:02:00 07/04/2017 11:29:00 DIS Emergency ZEKE ARCHER MD [facility] ER ABD PAIN AFTER PICC LINE PLACED [id number] 06/29/2017 11:27:00 06/29/2017 13:35:00 DIS Emergency KAYLA MELENDEZ APRN [facility] ER ELEVATED WBC [id number] 06/03/2017 11:53:00 06/03/2017 13:57:00 DIS Emergency KAYLA MELENDEZ APRN [facility] ER JAW PAIN [id number] 05/21/2017 08:03:00 05/21/2017 11:13:00 DIS Emergency AUBREE MURRAY, NOELLE Lazar [facility] ER CHEST PAIN [id number] 05/20/2017 03:45:00 05/20/2017 06:00:00 DIS Emergency EMILY MURPHY DO K [facility] ER WOLF [id number] 03/30/2017 00:29:00 03/30/2017 23:59:59 CLS Preadmit EULOGIO BRAGA MD [facility] ONC [id number] 01/12/2017 09:52:00 03/29/2017 00:01:00 DIS Outpatient EULOGIO BRAGA MD [facility] ONC [id number] 03/27/2017 10:40:00 03/27/2017 14:16:00 DIS Emergency MARKO MURRAY, KARLIE Owens [facility] ER BRAIN TUMOR/HEAD PAIN/ L SIDE PAIN [id number] 01/07/2017 14:47:00 01/07/2017 18:14:00 DIS Emergency KAYLA MELENDEZ [employer] [facility] ER N/V [id number] 12/29/2016 09:50:00 12/29/2016 11:15:00 DIS Emergency JEFFREY EIMLY K [facility] ER MIGRAINES,NOSEBLEEDS [id number] 07/20/2016 15:28:00 10/18/2016 00:01:00 DIS Outpatient EULOGIO BRAGA MD [facility] ONC [id number] 06/28/2016 08:24:00 06/28/2016 10:05:00 DIS Emergency SEVERO MURRAY, YANG Nassar [facility] ER BREAST AREA PAIN/ BLISTED/BLEEDING FROM RADIATION [id number] 06/24/2016 09:48:00 06/24/2016 23:59:59 CLS Outpatient EULOGIO BRAGA MD [facility] ONC [id number] 05/26/2016 12:42:00 05/26/2016 15:18:00 DIS Emergency MARKO MURRAY, KARLIE Owens [facility] ER RECTAL BLEEDING/PAIN [id number] 05/24/2016 20:35:00 05/25/2016 13:15:00 DIS Inpatient TERRI MURRAY, ABAD Cifuentes [facility] 4TH FEVER,BRONCHITIS,HYPOXIA, BREAST CA-ON CHEMO AND RA [id number] 03/04/2016 10:37:00 03/04/2016 11:16:00 DIS Emergency KAYLA MELENDEZ [employer] [facility] ER PAIN/SWELLING RIGHT BREAST AREA [id number] 03/01/2016 10:03:00 03/01/2016 23:59:59 CLS Outpatient ADE FOWLER [facility] LAB Z79.899 [id number] 02/16/2016 08:21:00 02/16/2016 12:11:00 DIS Emergency EDIL QURESHI [facility] ER ANXIETY, NEEDING PORT FLUSHED [id number] 05/13/2015 08:02:00 07/30/2015 00:01:00 DIS Outpatient CEE ALSOTN MD [facility] ONC [id number] 05/01/2015 11:17:00 05/01/2015 23:59:59 CLS Outpatient CEE ALSTON MD Via [facility] CARD BREAST CANCER [id number] 04/22/2015 11:06:00 04/22/2015 23:59:59 CLS Preadmit SANDRA TANG Via [facility] ONC [id number] 04/07/2015 10:59:00 04/14/2015 00:01:00 DIS Outpatient CEE ALSTON MD Via [facility] ONC [id number] 04/07/2015 11:51:00 04/07/2015 23:59:59 CLS Outpatient SANDRA TANG Via [facility] ONC [id number] 04/07/2015 11:17:00 04/07/2015 23:59:59 CLS Outpatient CEE ALSTON MD Via [facility] CARD BREAST CANCER [id number] 03/19/2015 08:29:00 03/19/2015 13:05:00 DIS [facility] [id number] 03/17/2015 06:12:00 03/17/2015 23:59:59 CLS Outpatient CAM BRAGA MD Via [facility] PREOP RIGHT BREAST CANCER [id number] 02/17/2015 10:18:00 02/17/2015 23:59:59 CLS Outpatient CEE ALSTON MD Via [facility] 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 [id number] 01/24/2015 13:52:00 01/24/2015 23:59:59 CLS Outpatient CEE ALSTON MD Via [facility] CARD ENCOUNTER FOR MONITORING CARDIOTOXIC DRUGS [id number] 01/23/2015 14:18:00 01/23/2015 23:59:59 CLS Outpatient SANDRA TANG Via [facility] ONC [id number] 01/23/2015 09:31:00 01/23/2015 23:59:59 CLS Outpatient CEE ALSTON MD Via [facility] RAD BREAST CA [id number] 01/22/2015 14:57:00 01/22/2015 23:59:59 CLS Outpatient CEE ALSTON MD Via [facility] RAD ABN MAMMO [id number] 01/17/2015 09:42:00 01/17/2015 23:59:59 CLS Outpatient CEE ALSTON MD Via [facility] CARD ENCOUNTER FOR MONITOR CARDIO TOXIC DRUG THERAPY [id number] 01/17/2015 09:38:00 01/17/2015 17:00:00 DIS Outpatient CAM BRAGA MD Via [facility] SDC BREAST CANCER [id number] 01/15/2015 13:52:00 01/15/2015 23:59:59 CLS Outpatient SHERRY ROGEL MD (DDU) Via [facility] RT DDU [id number] 01/15/2015 05:43:00 01/15/2015 23:59:59 CLS Outpatient CAM BRAGA MD Via [facility] PREOP [id number] 01/03/2015 07:05:00 01/03/2015 23:59:59 CLS Outpatient DARÍO BURROWS APRN Via [facility] RAD ABNORMAL MAMMO, BREAST MASS [id number] 01/01/2015 14:58:00 01/01/2015 23:59:59 CLS Outpatient DARÍO BURROWS [employer] [facility] RAD BREAST PAIN RT BREAST [id number] 12/25/2014 16:08:00 12/25/2014 17:23:00 DIS Emergency KAYLA MELENDEZ APRN Via [facility] ER R BREAST SWELLING/ TENDERNESS [id number] 12/19/2014 08:51:00 12/19/2014 11:43:00 DIS Emergency REGINALDO ANNA MD [facility] ER COUGH/FEVER [id number] 11/21/2014 11:43:00 11/21/2014 13:07:00 DIS Emergency KAYLA MELENDEZ [employer] Via [facility] ER SOA [id number] 11/08/2014 14:38:00 11/08/2014 16:53:00 DIS Emergency WILFRIDO MURRAY, REGINALDO Pryor Via [facility] ER SOA [id number] 10/28/2014 14:21:00 10/28/2014 23:59:59 [facility] Outpatient DARÍO BURROWS APRN Via [facility] RAD LOCALIZE SWELLING MASS OR HEAD 3 ABNORMAL GROWTHS [id number] 10/11/2014 09:35:00 10/11/2014 10:09:00 DIS Emergency WILFRIDO MURRAY, REGINALDO Pryor Via [facility] ER RASH [id number] 09/27/2014 09:09:00 09/27/2014 10:19:00 DIS Emergency MARKO MURRAY, KARLIE Owens Via [facility] ER
[2017-09-25 19:05] LABS: BASOPHILS % (AUTO) 0 % (0-10); EOSINOPHILS % (AUTO) 0 % (0-10); HEMATOCRIT 41 % (35-52); HEMOGLOBIN 13.9 G/DL (11.5-16.0); LYMPHOCYTES # (AUTO) 0.7 X 10^3 (1.0-4.0); LYMPHOCYTES % (AUTO) 7 % (12-44); MEAN CORPUSCULAR HEMOGLOBIN 29 PG (25-34); MEAN CORPUSCULAR HGB CONC 34 G/DL (32-36); MEAN CORPUSCULAR VOLUME 85 FL (80-99); MEAN PLATELET VOLUME 10.1 FL (7.4-10.4); MONOCYTES # (AUTO) 0.5 X 10^3 (0.0-1.0); MONOCYTES % (AUTO) 5 % (0-12); NEUTROPHILS # (AUTO) 8.9 X 10^3 (1.8-7.8); NEUTROPHILS % (AUTO) 88 % (42-75); PLATELET COUNT 233 10^3/uL (130-400); RED BLOOD COUNT 4.82 10^6/uL (4.35-5.85); RED CELL DISTRIBUTION WIDTH 15.3 % (10.0-14.5); WHITE BLOOD COUNT 10.1 10^3/uL (4.3-11.0)
[2017-09-25 19:20] LABS: PROTHROMBIN TIME PATIENT 12.8 SEC (12.2-14.7)
[2017-09-25 19:24] LABS: BAND NEUTROPHILS 0 %; BASOPHILS % (MANUAL) 0 %; EOSINOPHILS % (MANUAL) 0 %; LYMPHOCYTES % (MANUAL) 5 %; MONOCYTES % (MANUAL) 1 %; NEUTROPHILS % (MANUAL) 94 %
[2017-09-25 19:25] LABS: RBC MORPH NORMAL
[2017-09-25 19:27] LABS: ALANINE AMINOTRANSFERASE 28 U/L (0-55); ALBUMIN 4.2 GM/DL (3.2-4.5); ALKALINE PHOSPHATASE 85 U/L (40-136); BILIRUBIN,TOTAL 0.4 MG/DL (0.1-1.0); BUN/CREATININE RATIO 10; CALCIUM 9.6 MG/DL (8.5-10.1); CARBON DIOXIDE 24 MMOL/L (21-32); CHLORIDE 103 MMOL/L (98-107); CREATININE SERUM 0.58 MG/DL (0.60-1.30); GFR ESTIMATED > 60; GLUCOSE 111 MG/DL (70-105); MAGNESIUM 1.8 MG/DL (1.8-2.4); POTASSIUM 3.3 MMOL/L (3.6-5.0); SODIUM 138 MMOL/L (135-145); TOTAL PROTEIN 7.5 GM/DL (6.4-8.2)
--- NOTE | 2017-09-25 19:36 | Diagnostic Imaging Report ---
INDICATION: Bronchitis. COMPARISON: Prior examination from 06/29/2017. EXAMINATION: Two views of the chest were obtained. FINDINGS: The heart size is normal. Mediastinum is unremarkable. There is no pleural effusion or pneumothorax. There is an Znttxq-l-Sbbi catheter overlying the left hemithorax. There is a patchy infiltrate in the right lung base. IMPRESSION: 1. Patchy left basilar infiltrate. 2. No other acute cardiopulmonary abnormality. Dictated by: Dictated on workstation # [id number]
[2017-09-25] MEDS ORDERED: morphine INJ 10 MG/ML 1ML (SYR OR VIAL) IVP STA ×2 (19:45→23:17)
[2017-09-25] MEDS ORDERED: cefTRIAXone FOR IV USE 1,000 MG in NS (IVPB) 50 ML IV ONE (19:45)
--- NOTE | 2017-09-25 19:45 | ED General ---
General Chief Complaint: General Problems/Pain Stated Complaint: CHILLS/HOT Nursing Triage Note: pt to er per ems with c/o chills et hot flashes today since 1100. she is currently being treated for metastatic breast ca. she ran out of her morphine. last dose at 0500 this morning. Nursing Sepsis Screen: No Definite Risk Source of Information: Patient Exam Limitations: No Limitations History of Present Illness Date Seen by Provider: Sep 25, 2017 Time Seen by Provider: 18:50 Initial Comments PT ARRIVES VIA EMS FROM HOME C/O "FEELING HOT AND COLD" SINCE 1100 AM TODAY STATES SHE RAN OUT OF HER MORPHINE LAST NIGHT AND CANNOT GET ANYMORE UNTIL TOMORROW MORNING--ADMITS TO TAKING EXTRA PILLS PT IS CURRENTLY BEING TREATED FOR METASTATIC BREAST CANCER TO BRAIN--IS ON CHEMOTHERAPY, AND IS DUE TO HAVE NEXT TREATMENT IN THE MORNING. LAST TREATMENT WAS 2-[address] MARTINES AT [facility] HAS NOT CHECKED HER TEMPERATURE AT ANY TIME DENIES SWEATS NO CHEST PAIN NO SHORTNESS OF BREATH DENIES COUGH ON ARRIVAL NO HEADACHE NO URINARY SYMPTOMS NO NAUSEA/VOMITING/DIARRHEA OR ABDOMINAL PAIN PT STATES SHE HAS BEEN EATING AND DRINKING WELL. PT STATES SHE WAS TREATED FOR BRONCHITIS > 1 WEEK AGO. TOOK 5 DAYS OF UNKNOWN ANTIBIOTIC, FINISHED 5 DAYS AGO. WAS ON LEVAQUIN 750 MG X 4 DAYS PER MED RECONCILIATION 12 VISITS IN ER IN 2018. PCP: DR MURRAY AT [facility] Allergies and Home Medications Allergies Coded Allergies: No Known Drug Allergies (Unverified , 09/27/14) Home Medications Morphine Sulfate 15 Mg Tablet.er, 15 MG PO BID PRN for PAIN-BREAKTHROUGH Prescribed by: ZEKE ARCHER on 07/04/17 1118 Morphine Sulfate 15 Mg Tablet.er, 15 MG PO BID Prescribed by: KARLIE ZHU on 07/09/17 1902 Mupirocin Calcium 1 Gm Oint...g., 1 GM NS BID Prescribed by: EMILY MURPHY on 08/20/17 1037 Patient Home Medication List Home Medication List Reviewed: Yes Review of Systems Constitutional: see HPI, chills; No diaphoresis; fever EENTM: no symptoms reported Respiratory: cough, other (HURTS TO BREATHE) Cardiovascular: no symptoms reported Gastrointestinal: no symptoms reported Genitourinary: no symptoms reported Musculoskeletal: see HPI (GENERALIZED PAIN ) Skin: no symptoms reported Psychiatric/Neurological: No Symptoms Reported; Denies Headache Past Qwftazf-Gureir-Qeybft Hx Patient Social History Alcohol Use: Denies Use Recreational Drug Use: No Smoking Status: Current Everyday Smoker Type Used: Cigarettes 2nd Hand Smoke Exposure: Yes Recent Foreign Travel: No Contact w/Someone Who Travel: No Recent Infectious Disease Expo: No Recent Hopitalizations: No (SEEN IN ED NUMEROUS TIMES) Immunizations Up To Date Tetanus Booster (TDap): Unknown Seasonal Allergies Seasonal Allergies: No Past Medical History Surgeries: Yes (INFUSAPORT; BILATERAL MASTECTOMY) Appendectomy, Breast, Section, Gallbladder, Vascular Surgery Respiratory: Yes Asthma Cardiac: Yes High Cholesterol, Hypertension Neurological: Yes (BRAIN METS FROM BREAST CANCER) 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: No (THROUGH MENOPAUSE) Female 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 Sexually Transmitted Disease: No HIV/AIDS: No Genitourinary: No Gastrointestinal: Yes Gastroesophageal Reflux Musculoskeletal: Yes Rheumatoid Arthritis, Chronic Back Pain Endocrine: No HEENT: Yes (TEETH REMOVED) Loss of Vision: Denies Hearing Impairment: Denies Cancer: Yes Skin, Breast Did You Recieve Any Treatments: Yes What Type of Treatment Did You: Chemotherapy, Radiation, Surgical Intervention Psychosocial: Yes Anxiety, Bipolar, Personality Disorder, Depression Integumentary: No Blood Disorders: Yes (ANEMIA WITH CHEMO) Adverse Reaction/Blood Tranf: No (HAS HAD BLOOD TRANSFUSION WITH NO PROBLEM) Family Medical History Not obtainable due to adoption (ADOPTION) No Pertinent Family Hx Physical Exam Vital Signs Vital Signs - First Documented 09/25/17 18:35 Temp 98.7 Pulse 93 Resp 18 B/P (MAP) 144/76 (98) Pulse Ox 96 O2 Delivery Room Air Capillary Refill : Less Than 3 Seconds Height, Weight, BMI Height: 5'5.00" Weight: 149lbs. 11.2oz. [id number]; 31.2 BMI Method:Stated General Appearance: No Apparent Distress, WD/WN HEENT: PERRL/EOMI, Other (EDENTULOUS) Neck: Full Range of Motion, Normal Inspection, Non Tender, Supple Respiratory: No Accessory Muscle Use, No Respiratory Distress, Decreased Breath Sounds (IN BASES), Other (OCCASIONAL NON-PRODUCTIVE COUGH) Cardiovascular: Regular Rate, Rhythm, No Edema, No JVD, No Murmur, Normal Peripheral Pulses Gastrointestinal: Non Tender, Soft Back: No CVA Tenderness Extremity: Normal Capillary Refill, Normal Inspection, No Pedal Edema Neurologic/Psychiatric: Alert, Oriented x3, No Motor/Sensory Deficits, Normal Mood/Affect, seconds grader II-XII Norm as Tested Skin: Normal Color, Warm/Dry Focused Exam Lactate Level 09/25/17 18:45: Lactic Acid Level 0.77 Lactic Acid Level Progress/Results/Core Measures Suspected Sepsis Recent Fever Within 48 Hours: No Infection Criteria Present: None New/Unexplained Altered Menta: No Sepsis Screen: No Definite Risk SIRS Temperature:98.7 Pulse: 93 Respiratory Rate: 18 Laboratory Tests 09/25/17 18:45: White Blood Count 10.1 Blood Pressure 144 /76 Mean: 98 09/25/17 18:45: Lactic Acid Level 0.77 Laboratory Tests 09/25/17 18:45: Creatinine 0.58L, INR Comment 1.0, Platelet Count 233, Total Bilirubin 0.4 Results/Orders Lab Results Laboratory Tests Test 09/25/17 18:45 09/25/17 23:20 Range/Units White Blood Count 10.1 4.3-11.0 10^3/uL Red Blood Count 4.82 4.35-5.85 10^6/uL Hemoglobin 13.9 11.5-16.0 G/DL Hematocrit 41 35-52 % Mean Corpuscular Volume 85 80-99 FL Mean Corpuscular Hemoglobin 29 25-34 PG Mean Corpuscular Hemoglobin Concent 34 32-36 G/DL Red Cell Distribution Width 15.3 H 10.0-14.5 % Platelet Count 233 130-400 10^3/uL Mean Platelet Volume 10.1 7.4-10.4 FL Neutrophils (%) (Auto) 88 H 42-75 % Lymphocytes (%) (Auto) 7 L 12-44 % Monocytes (%) (Auto) 5 0-12 % Eosinophils (%) (Auto) 0 0-10 % Basophils (%) (Auto) 0 0-10 % Neutrophils # (Auto) 8.9 H 1.8-7.8 X 10^3 Lymphocytes # (Auto) 0.7 L 1.0-4.0 X 10^3 Monocytes # (Auto) 0.5 0.0-1.0 X 10^3 Eosinophils # (Auto) 0.0 0.0-0.3 10^3/uL Basophils # (Auto) 0.0 0.0-0.1 10^3/uL Neutrophils % (Manual) 94 % Lymphocytes % (Manual) 5 % Monocytes % (Manual) 1 % Eosinophils % (Manual) 0 % Basophils % (Manual) 0 % Band Neutrophils 0 % Blood Morphology Comment NORMAL Prothrombin Time 12.8 12.2-14.7 SEC INR Comment 1.0 0.8-1.4 Activated Partial Thromboplast Time 32 24-35 SEC Sodium Level 138 135-145 MMOL/L Potassium Level 3.3 L 3.6-5.0 MMOL/L Chloride Level 103 98-107 MMOL/L Carbon Dioxide Level 24 21-32 MMOL/L Anion Gap 11 5-14 MMOL/L Blood Urea Nitrogen 6 L 7-18 MG/DL Creatinine 0.58 L 0.60-1.30 MG/DL Estimat Glomerular Filtration Rate > 60 BUN/Creatinine Ratio 10 Glucose Level 111 H 70-105 MG/DL Lactic Acid Level 0.77 0.50-2.00 MMOL/L Calcium Level 9.6 8.5-10.1 MG/DL Corrected Calcium 9.4 8.5-10.1 MG/DL Magnesium Level 1.8 1.8-2.4 MG/DL Total Bilirubin 0.4 0.1-1.0 MG/DL Aspartate Amino Transf (AST/SGOT) 26 5-34 U/L Alanine Aminotransferase (ALT/SGPT) 28 0-55 U/L Alkaline Phosphatase 85 40-136 U/L Total Protein 7.5 6.4-8.2 GM/DL Albumin 4.2 3.2-4.5 GM/DL Urine Color YELLOW Urine Clarity SLIGHTLY CLOUDY Urine pH 7 5-9 Urine Specific [place] 1.015 L 1.016-1.022 Urine Protein 1+ H NEGATIVE Urine Glucose (UA) NEGATIVE NEGATIVE Urine Ketones NEGATIVE NEGATIVE Urine Nitrite NEGATIVE NEGATIVE Urine Bilirubin NEGATIVE NEGATIVE Urine Urobilinogen NORMAL NORMAL MG/DL Urine Leukocyte Esterase 1+ H NEGATIVE Urine RBC (Auto) 1+ H NEGATIVE Urine RBC 0-2 /HPF Urine WBC 0-2 /HPF Urine Squamous Epithelial Cells 0-2 /HPF Urine Crystals NONE /LPF Urine Bacteria FEW H /HPF Urine Casts NONE /LPF Urine Mucus NEGATIVE /LPF Urine Culture Indicated NO My Orders Orders - EMILY MURPHY DO Saline Lock/Iv-Start (09/25/17 18:58) Monitor-Rhythm Ecg Trace Only (09/25/17 18:58) Cbc With Automated Diff (09/25/17 18:58) Comprehensive Metabolic Panel (09/25/17 18:58) Lactic Acid Analyzer (09/25/17 18:58) Magnesium (09/25/17 18:58) Protime With Inr (09/25/17 18:58) Partial Thromboplastin Time (09/25/17 18:58) Ua Culture If Indicated (09/25/17 18:58) Blood Culture (09/25/17 18:58) Chest Pa/Lat (2 View) (09/25/17 18:58) Manual Differential (09/25/17 18:45) Ceftriaxone Injection (Rocephin Injectio (09/25/17 19:45) Morphine Injection (Morphine Injection (09/25/17 19:45) Ceftriaxone Injection (Rocephin Injectio (09/25/17 19:56) Ns (Ivpb) (Sodium Chloride 0.9% Ivpb Bag (09/25/17 19:56) Levofloxacin 750 Mg/150 Ml Iv (Levaquin (09/25/17 20:15) D5 1/2 Ns W/Kcl 20 Meq/L (Dextrose 5%/0. (09/25/17 20:15) Morphine Injection (Morphine Injection (09/25/17 23:17) Morphine Injection (Morphine Injection (09/26/17 02:00) Morphine Injection (Morphine Injection (09/26/17 04:56) Cefepime Injection (Maxipime Injection) (09/26/17 06:45) General/Regular (09/26/17 Breakfast) Medications Given in ED Current Medications Medications Dose Ordered Sig/Nilda Route Start Time Stop Time Status Last Admin Dose Admin Ceftriaxone Sodium 1000 mg/ Sodium Chloride 50 ml @ 100 mls/hr ONCE ONCE IV 09/25/17 19:45 09/25/17 21:20 DC 09/25/17 20:04 100 MLS/HR Levofloxacin/ Dextrose 150 ml @ 100 mls/hr ONCE ONCE IV 09/25/17 20:15 09/25/17 21:44 DC 09/25/17 22:52 100 MLS/HR Vital Signs/I&O 09/26/17 00:00 Intake Total 50 ml Balance 50 ml Capillary Refill : Less Than 3 Seconds Blood Pressure Mean: 98 Progress Note : Progress Note ON INFORMING HER OF PNEUMONIA, PT NOW ADMITS TO NON-PRODUCTIVE COUGH AND CHEST HURTING WHEN SHE BREATHES NO DETERIORATION IN PT'S CONDITION DURING ER STAY Diagnostic Imaging Comments CXR--LLL PNEUMONIA, PER RADIOLOGIST REPORT @ 1939 Reviewed: Reviewed by Me Departure Communication (Admissions) 1942--ATTEMPTING TO CONTACT DR. GOODMAN ON CELL PHONE--NO ANSWER, MESSAGES LEFT. ATTEMPTED MULTIPLE TIMES TO CONTACT DR. GOODMAN. NO ANSWER. THIS FACILITY IS ON DIVERSION AT THIS DAGMAR. 1957--CONTACTED [facility], THEY ARE ON DIVERSION AT THIS TIME WILL HOLD PT IN ER AND ATTEMPT TO ADMIT HERE OR [facility] IN THE MORNING. 636--SPOKE WITH DR. PAN, COMING SNOWMAKER FOR [facility]. WE WILL BE OFF DIVERSION AT 0700 TODAY. SHE ADVISES TO CONTINUE TO TRY TO TRANSFER TO [facility] AT THIS TIME, AND DECLINES ADMIT HERE AT THIS TIME,AND ADVISES TRANSFER TO [facility]. 637--CALLED [facility], THEY ARE STILL ON DIVERSION AND CURRENTLY ARE BOARDING 4 PATIENTS IN THEIR ER TO BE ADMITTED. 643--THEY WILL TAKE PT'S INFORMATION AND CALL US IF/WHEN BED BECOMES AVAILABLE. ANTICIPATE THAT BED WILL BECOME AVAILABLE THIS MORNING. INFORMATION GIVEN AND FACE SHEET FAXED. 716--SPOKE WITH HOSPITALIST SNOWMAKER AT [facility], DR. ELIZABETH, AND SHE WILL NOT ACCEPT PT FOR ADMIT/TRANSFER. ADVISES THAT PT DOES NOT MEET ADMIT CRITERIA, DESPITE FAILED OUTPATIENT TREATMENT, AND NOW WITH PNEUMONIA. Impression Primary Impression: LLL pneumonia Additional Impressions: Breast cancer metastasized to brain CURRENTLY ON CHEMOTHERAPY Chronic generalized pain Failure of outpatient treatment Disposition: HOME, SELF-CARE Condition: Stable Departure-Patient Inst. Referrals: ABAD MURRAY MD (PCP/Family) Primary Care Physician Patient Instructions: Breast Cancer, Chronic Pain (DC), Community-Acquired Pneumonia, Adult (DC) Add. Discharge Instructions: LOTS OF CLEAR LIQUIDS ALTERNATE TYLENOL AND MOTRIN EVERY 2-3 HOURS NEEDED FOR PAIN OR FEVER GET YOUR PRESCRIPTION FILLED FOR MORPHINE TODAY FOLLOW UP WITH DR. MURRAY AND YOUR ONCOLOGIST IN 1-2 DAYS FOR FURTHER CARE All discharge instructions reviewed with patient and/or family. Voiced understanding. Scripts Azithromycin (Zithromax) 500 Mg Tablet 500 MG PO DAILY, #5 TAB FOR INFECTION Prov: EMILY MURPHY DO 09/26/17 Cefdinir (Cefdinir) 300 Mg Capsule 300 MG PO BID for FOR INFECTION, #20 CAP Prov: EMILY MURPHY DO 09/26/17 EMILY MURPHY DO Sep 25, 2017 19:45
[2017-09-25] MEDS ORDERED: cefTRIAXone 1 GM/10 ML for IV (ROCEPHIN) ONE (19:56)
[2017-09-25] MEDS ORDERED: NS (IVPB) 50 ML ONE (19:56)
[2017-09-25] MEDS ORDERED: LEVOFLOXACIN 750 MG/150 ML IV 150 ML IV ONE (20:15)
[2017-09-25] MEDS ORDERED: D5 1/2 NS W/KCL 20 MEQ/L 1,000 ML IV SCH (20:15)
[2017-09-25 23:32] LABS: BILIRUBIN,URINE NEGATIVE (NEGATIVE); CLARITY,URINE SLIGHTLY CLOUDY; COLOR,URINE YELLOW; GLUCOSE, URINE (UA) NEGATIVE (NEGATIVE); KETONES,URINE NEGATIVE (NEGATIVE); LEUKOCYTE ESTERASE ,URINE 1+ (NEGATIVE); NITRITE,URINE NEGATIVE (NEGATIVE); PH,URINE 7 (5-9); PROTEIN,URINE 1+ (NEGATIVE); UROBILINOGEN,URINE NORMAL (NORMAL)
[2017-09-25 23:42] LABS: BACTERIA,URINE FEW /HPF; RBC,URINE 0-2 /HPF; SQUAMOUS EPITHELIAL CELL,UR 0-2 /HPF; WBC,URINE 0-2 /HPF
[2017-09-26] MEDS ORDERED: morphine INJ 10 MG/ML 1ML (SYR OR VIAL) IVP STA ×3 (02:00→07:36)
[2017-09-26] MEDS ORDERED: CEFEPIME INJECTION 2,000 MG in NS (IVPB) 50 ML IV ONE (06:45)
[2017-09-26] MEDS ORDERED: AZIT500T PO ×2 (07:28→07:32)
[2017-09-26] MEDS ORDERED: CEFD300C3 PO ×2 (07:28→07:32)
[2017-09-26 08:31] VITALS: BP 110/72
== END 2017-09-26 08:30 | disposition home or self-care (01) ==
LOC: EDUNIT# 18:35 → ER 18:35
DX: J18.1 Lobar pneumonia, unspecified organism (principal); C80.1 Malignant (primary) neoplasm, unspecified; C79.31 Secondary malignant neoplasm of brain; C44.90 Unspecified malignant neoplasm of skin, unspecified; I10 Essential (primary) hypertension; E78.00 Pure hypercholesterolemia, unspecified; K21.9 Gastro-esophageal reflux disease without esophagitis; M06.9 Rheumatoid arthritis, unspecified; F41.9 Anxiety disorder, unspecified; F31.9 Bipolar disorder, unspecified; F60.9 Personality disorder, unspecified; D64.81 Anemia due to antineoplastic chemotherapy; F17.210 Nicotine dependence, cigarettes, uncomplicated; Z91.14 Patient's other noncompliance with medication regimen; Z90.49 Acquired absence of other specified parts of digestive tract; Z98.890 Other specified postprocedural states
CPT/HCPCS: 36415; 71046; 80053; 81000; 83605; 83735; 85007; 85027; 85610; 85730; 87040; 93041

== ENCOUNTER 2018-03-18 12:42 | Emergency (ER) | payer MEDICAID ==
[~2018-03-18] VITALS: Ht 165.1 cm; Wt 67.9 kg
[~2018-03-18 12:42] MED LIST changes: +AZIT500T PO; +HYDR-4226 PO; -HYDR-757 PO; -OXYC-197 PO; +OXYC1TAB87 PO; +POTA-51 PO
[2018-03-18] MEDS ORDERED: RT-ALBUTEROL/IPRATROPIUM 3 ML (DUONEB) VIAL INH ONE (12:45)
[2018-03-18] MEDS ORDERED: methylPREDNISolone 125 MG (Solu-MEDROL) VIAL IVP ONE (12:45)
--- NOTE | 2018-03-18 12:49 | ED Respiratory ---
General Stated Complaint: SOB Source: patient Exam Limitations: no limitations History of Present Illness Date Seen by Provider: Mar 18, 2018 Time Seen by Provider: 12:46 Initial Comments This 52-year-old white female presents with a complaint of shortness of breath is been persistent for last several days. Patient saw her primary care physician Dr. Murray received an injection for an apparent upper respiratory infection 2 days ago. Patient has not been taking subsequent oral antibiotics. Past medical history includes COPD and cancer of the breast metastatic to the brain. Allergies and Home Medications Allergies Coded Allergies: No Known Drug Allergies (Unverified , 09/27/14) Home Medications Azithromycin 500 Mg Tablet, 500 MG PO DAILY FOR INFECTION Prescribed by: EMILY MURPHY on 09/26/17 0732 Cefdinir 300 Mg Capsule, 300 MG PO BID Prescribed by: EMILY MURPHY on 09/26/17 0732 Morphine Sulfate 15 Mg Tablet.er, 15 MG PO BID PRN for PAIN-BREAKTHROUGH Prescribed by: ZEKE ARCHER on 07/04/17 1118 Morphine Sulfate 15 Mg Tablet.er, 15 MG PO BID Prescribed by: KARLIE ZHU on 07/09/17 1902 Mupirocin Calcium 1 Gm Oint...g., 1 GM NS BID Prescribed by: EMILY MURPHY on 08/20/17 1037 Potassium Chloride 20 Meq Tablet.er, 40 MEQ PO DAILY Prescribed by: KAYLA MELENDEZ on 10/03/17 1700 Patient Home Medication List Home Medication List Reviewed: Yes Review of Systems Review of Systems Constitutional: No chills; fever EENTM: No ear pain, No throat pain Respiratory: see HPI, cough, short of breath Cardiovascular: No chest pain, No palpitations Gastrointestinal: No abdominal pain, No diarrhea, No nausea, No vomiting Genitourinary: No dysuria, No frequency : No Musculoskeletal: No back pain Skin: No rash Psychiatric/Neurological: No Symptoms Reported Hematologic/Lymphatic: No Symptoms Reported Immunological/Allergic: no symptoms reported Past Zshugwt-Udzfma-Owhgya Hx Past Med/Social Hx: Reviewed Nursing Past Med/Soc Hx Patient Social History Type Used: Cigarettes 2nd Hand Smoke Exposure: Yes Recent Hopitalizations: No (SEEN IN ED NUMEROUS TIMES) Immunizations Up To Date Tetanus Booster (TDap): Unknown Seasonal Allergies Seasonal Allergies: No Past Medical History Surgeries: Yes (INFUSAPORT; BILATERAL MASTECTOMY) Appendectomy, Breast, Section, Gallbladder, Vascular Surgery Respiratory: Yes Asthma Cardiac: Yes High Cholesterol, Hypertension Neurological: Yes (BRAIN METS FROM BREAST CANCER) 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: No (THROUGH MENOPAUSE) Female 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 Sexually Transmitted Disease: No HIV/AIDS: No Genitourinary: No Gastrointestinal: Yes Gastroesophageal Reflux Musculoskeletal: Yes Rheumatoid Arthritis, Chronic Back Pain Endocrine: No HEENT: Yes (TEETH REMOVED) Loss of Vision: Denies Hearing Impairment: Denies Cancer: Yes Brain, Skin, Breast Did You Recieve Any Treatments: Yes What Type of Treatment Did You: Chemotherapy, Radiation, Surgical Intervention Psychosocial: Yes Anxiety, Bipolar, Personality Disorder, Depression Integumentary: No Blood Disorders: Yes (ANEMIA WITH CHEMO) Adverse Reaction/Blood Tranf: No (HAS HAD BLOOD TRANSFUSION WITH NO PROBLEM) Family Medical History Not obtainable due to adoption (ADOPTION) No Pertinent Family Hx Physical Exam Vital Signs - First Documented 03/18/18 13:57 Pulse Ox 95 O2 Delivery Nasal Cannula O2 Flow Rate 2.00 Capillary Refill : Height: 5'5.00" Weight: 149lbs. 11.2oz. 67.318061tv; 31.2 BMI Method:Stated General Appearance: WD/WN, no apparent distress Eyes: Bilateral Eye Normal Inspection HEENT: normal ENT inspection Neck: normal inspection Respiratory: decreased breath sounds Cardiovascular: regular rate, rhythm Gastrointestinal: normal bowel sounds, non tender, soft Extremities: normal range of motion, non-tender Neurologic/Psychiatric: no motor/sensory deficits, alert, normal mood/affect Skin: normal color, warm/dry Progress/Results/Core Measures Suspected Sepsis SIRS Temperature: Pulse: Respiratory Rate: Laboratory Tests 03/18/18 12:57: White Blood Count 8.7 Blood Pressure / Mean: Laboratory Tests 03/18/18 12:57: Creatinine 0.64, Platelet Count 207, Total Bilirubin 0.4 Results/Orders Lab Results Laboratory Tests Test 03/18/18 12:57 Range/Units White Blood Count 8.7 4.3-11.0 10^3/uL Red Blood Count 4.98 4.35-5.85 10^6/uL Hemoglobin 15.1 11.5-16.0 G/DL Hematocrit 45 35-52 % Mean Corpuscular Volume 90 80-99 FL Mean Corpuscular Hemoglobin 30 25-34 PG Mean Corpuscular Hemoglobin Concent 34 32-36 G/DL Red Cell Distribution Width 14.7 H 10.0-14.5 % Platelet Count 207 130-400 10^3/uL Mean Platelet Volume 9.3 7.4-10.4 FL Neutrophils (%) (Auto) 81 H 42-75 % Lymphocytes (%) (Auto) 12 12-44 % Monocytes (%) (Auto) 5 0-12 % Eosinophils (%) (Auto) 1 0-10 % Basophils (%) (Auto) 0 0-10 % Neutrophils # (Auto) 7.1 1.8-7.8 X 10^3 Lymphocytes # (Auto) 1.1 1.0-4.0 X 10^3 Monocytes # (Auto) 0.4 0.0-1.0 X 10^3 Eosinophils # (Auto) 0.1 0.0-0.3 10^3/uL Basophils # (Auto) 0.0 0.0-0.1 10^3/uL D-Dimer 0.24 0.00-0.49 UG/ML Sodium Level 139 135-145 MMOL/L Potassium Level 3.9 3.6-5.0 MMOL/L Chloride Level 107 98-107 MMOL/L Carbon Dioxide Level 20 L 21-32 MMOL/L Anion Gap 12 5-14 MMOL/L Blood Urea Nitrogen 16 7-18 MG/DL Creatinine 0.64 0.60-1.30 MG/DL Estimat Glomerular Filtration Rate > 60 BUN/Creatinine Ratio 25 Glucose Level 114 H 70-105 MG/DL Calcium Level 9.3 8.5-10.1 MG/DL Corrected Calcium 9.2 8.5-10.1 MG/DL Total Bilirubin 0.4 0.1-1.0 MG/DL Aspartate Amino Transf (AST/SGOT) 18 5-34 U/L Alanine Aminotransferase (ALT/SGPT) 19 0-55 U/L Alkaline Phosphatase 71 40-136 U/L Total Protein 7.2 6.4-8.2 GM/DL Albumin 4.1 3.2-4.5 GM/DL My Orders Orders - NOELLE MAK MD Chest 1 View, Ap/Pa Only (03/18/18 12:44) Cbc With Automated Diff (03/18/18 12:44) Comprehensive Metabolic Panel (03/18/18 12:44) Fibrin Degradation Products (03/18/18 12:44) Albuterol/Ipra Inhalation Soln (Duoneb I (03/18/18 12:45) Methylprednisolone Sod Succ (Solu-Medrol (03/18/18 12:45) Svn Small Volume Nebulizer (03/18/18 12:44) Medications Given in ED Current Medications Medications Dose Ordered Sig/Nilda Route Start Time Stop Time Status Last Admin Dose Admin Albuterol/ Ipratropium 3 ml ONCE ONCE INH 03/18/18 12:45 03/18/18 12:46 DC 03/18/18 13:56 3 ML Vital Signs/I&O 03/18/18 13:57 Pulse Ox 95 O2 Delivery Nasal Cannula O2 Flow Rate 2.00 Capillary Refill : Progress Note : Time: 14:03 Progress Note The patient's radiographic and laboratory evaluation were unremarkable. I discussed findings with patient who will follow closely with her doctor on Tuesday. She asked for a few tramadol for pain at home. Departure Impression Primary Impression: Shortness of breath Disposition: 01 HOME, SELF-CARE Condition: Improved Departure-Patient Inst. Decision time for Depature: 14:05 Referrals: ABAD MURRAY MD (PCP/Family) Primary Care Physician Patient Instructions: Shortness of Breath (Dyspnea) (DC) Add. Discharge Instructions: Follow-up with your doctor on Tuesday. Tramadol for pain. Return with any problems or questions. NOELLE MAK MD Mar 18, 2018 12:49
--- NOTE | 2018-03-18 13:08 | Diagnostic Imaging Report ---
Indication: Chest pain and shortness of air. Time of exam: 12:59 PM Correlation is made with prior study 10/03/2017. Left-sided line has tip overlying the SVC. The lungs are clear. Vascularity is normal. No infiltrate, effusion or pneumothorax is identified. Impression: No acute cardiopulmonary processes detected. Dictated by: Dictated on workstation # [id number]
[2018-03-18 13:10] LABS: BASOPHILS % (AUTO) 0 % (0-10); EOSINOPHILS # (AUTO) 0.1 10^3/uL (0.0-0.3); EOSINOPHILS % (AUTO) 1 % (0-10); HEMATOCRIT 45 % (35-52); HEMOGLOBIN 15.1 G/DL (11.5-16.0); LYMPHOCYTES # (AUTO) 1.1 X 10^3 (1.0-4.0); LYMPHOCYTES % (AUTO) 12 % (12-44); MEAN CORPUSCULAR HEMOGLOBIN 30 PG (25-34); MEAN CORPUSCULAR HGB CONC 34 G/DL (32-36); MEAN CORPUSCULAR VOLUME 90 FL (80-99); MEAN PLATELET VOLUME 9.3 FL (7.4-10.4); MONOCYTES # (AUTO) 0.4 X 10^3 (0.0-1.0); MONOCYTES % (AUTO) 5 % (0-12); NEUTROPHILS # (AUTO) 7.1 X 10^3 (1.8-7.8); NEUTROPHILS % (AUTO) 81 % (42-75); PLATELET COUNT 207 10^3/uL (130-400); RED CELL DISTRIBUTION WIDTH 14.7 % (10.0-14.5); WHITE BLOOD COUNT 8.7 10^3/uL (4.3-11.0)
[2018-03-18 13:31] LABS: ALANINE AMINOTRANSFERASE 19 U/L (0-55); ALBUMIN 4.1 GM/DL (3.2-4.5); ALKALINE PHOSPHATASE 71 U/L (40-136); BILIRUBIN,TOTAL 0.4 MG/DL (0.1-1.0); BUN/CREATININE RATIO 25; CALCIUM 9.3 MG/DL (8.5-10.1); CARBON DIOXIDE 20 MMOL/L (21-32); CHLORIDE 107 MMOL/L (98-107); CREATININE SERUM 0.64 MG/DL (0.60-1.30); GFR ESTIMATED > 60; GLUCOSE 114 MG/DL (70-105); POTASSIUM 3.9 MMOL/L (3.6-5.0); SODIUM 139 MMOL/L (135-145); TOTAL PROTEIN 7.2 GM/DL (6.4-8.2)
[2018-03-18 14:24] VITALS: BP 132/69
--- OUTSIDE RECORDS SUMMARY | 2018-03-18 21:24 | XMS REPORT | Clinical Summary ---
Author Author [facility] Organization [facility] Address Unknown Phone Unavailable Care Team Providers Care Electrical Contractor Name Role Phone Porfirio Spence MD PCP Agustina Vines DO Unavailable Source Comments Some departments are not documenting in the electronic medical record. If you do not see the information that you expected, contact Release of Information in the Health Information Management department at [phone] for further assistance in locating additional records.[facility] Allergies Comments Active Allergy Reactions Severity Noted Date Diphenhydramine-Zinc AGITATION Low 01/11/2018 Acetate Ciprofloxacin HIVES Medium 11/28/2017 Makes her temp rise. Haloperidol Lactate SEE COMMENTS Low 01/11/2018 Medications End Date Status Medication Sig Dispensed Refills Start Date Active ibuprofen (MOTRIN) 600 mg Take 600 mg 0 tablet by mouth every 8 hours as needed for Pain. Take with food. Active diazePAM (VALIUM) 2 mg Take 1 tablet 6 tablet 0 tablet by mouth 30 8 mins before MRI and PET scan for anxiety, Can repeat as needed. Active omeprazole DR(+) Take 40 mg by 0 (PRILOSEC) 40 mg capsule mouth daily before breakfast. Active gabapentin (NEURONTIN) Take 300 mg 0 300 mg capsule by mouth twice daily. Active loratadine (CLARITIN) 10 Take 10 mg by 0 mg tabletIndications: mouth as Every 3 weeks directed. Active prochlorperazine maleate Take 10 mg by 0 (COMPAZINE) 10 mg tablet mouth every 6 hours as needed for Nausea or Vomiting. Active albuterol (PROAIR HFA, Inhale 2 0 VENTOLIN HFA, OR puffs by PROVENTIL HFA) 90 mouth into mcg/actuation inhaler the lungs every 4 hours as needed for Wheezing or Shortness of Breath. Shake well before use. 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 Overview: 01/03/2015 left breast needle biopsy, [facility] [place] [place] diagnosis: Infiltrating carcinoma, lobular type, [place] 0, [place] 0, HER-2 positive, Ki-67 15%, stage T4 N2 M0 01/27/2015 neoadjuvant Adriamycin and Cytoxan 4 cycles followed by Taxotere/Herceptin/Perjeta Tums 4 cycles, AC begun this date 03/19/2015 wedge biopsy right breast [facility] diagnosis inflammatory carcinoma of breast 03/31/2015 fourth AC 05/01/2015--07/10/2015 completed 4 cycles THP 08/05/2015 bilateral breast mastectomies at [facility] diagnosis: Left breast no evidence of malignancy, right breast no evidence of malignancy, lymph nodes negative for malignancy 08/31/2015 resumed Herceptin with note made that patient was somewhat noncompliant with treatment and lead to late radiation 06/04/2016 completed Herceptin 06/2016 completed radiation therapy 12/09/2016 CT head [facility]: 2 masses suggestive of metastasis right frontal left cerebellar 12/30/2016--01/12/2017 whole brain radiation therapy 10 fractions [facility] 01/17/2017 [facility] nuclear medicine bone scan impression metastatic disease suspected in the right parasagittal calvarium, lesser degree/lesser uptake left parasagittal calvarium, and the left occipital skull base region. CT scan pending for correlation. 01/21/2017 plain film x-rays skull suspicion for metastatic disease remains in the parietal regions worse on the right and the left skull base. No abnormality on x-ray to match the bone scan findings which are suspicious. 02/07/2017 began Xeloda about this date, probably also lapatinib 05/20/2017 CT head [facility] stable or mildly decreased masses 05/21/2017 [facility], CT abdomen pelvis from ER without acute findings 2017 transfer of care to Agustina vines at [facility] 06/21/[address] had neck chest abdomen at [facility]: Changes of bilateral mastectomy. No recurrent chest wall masses identified. No evidence of regional or distant metastatic disease. Small amount of radiopharmaceutical uptake surrounding the tip of the chest port. 06/21/2017 [facility] MRI head: Heterogeneously enhancing right frontal lobe mass, 1.7 cm concerning for metastatic disease or less likely primary malignancy. Mild surrounding edema without hemorrhage or significant mass-effect. 2. Tiny linear 1 x 0.3 similar left cerebellar lesion posteriorly which could represent a small metastasis or benign venous angioma. Motion artifact makes characteristic and suboptimal. Concerning for metastatic disease,,,, mention made that no calvarial lesion seen 07/12/2017 [facility] emergency room CT abdomen pelvis no acute intra-abdominal findings are demonstrated. No mention of changes worrisome for metastatic disease. 06/27/2017 [facility] Agustina Vines comment made the patient will return for second dose of Kadcyla 07/26/2017 [facility] CT head, overall stable noncontrast CT the brain when compared to 05/20/2017. Right frontal lobe and left cerebellar abnormalities are stable. No new abnormality is detected. 08/30/2017 [facility] CT chest and 0 no pulmonary emboli or acute pulmonary abnormality, no mention of adenopathy or masses 10/15/2017 [facility] CT chest Angio no mention of PEs or cancer 10/17/2017 seen by Agustina Vines that [facility] on Kadcyla, mention relapse to osseous metastasis calvarium and brain. Note that on the MRI dated 06/21/2017 nice they specifically said no calvarial lesions. The CT head done on 07/26/2017 does not mention bony disease. Mentioned ordering PET CT and MRI head 11/28/2017 first [facility] clinic visit, talked about checking PET/CT and also MRI head. Patient unsure whether Kadcyla was working or not. We will get back together after these results are available. 12/22/2017 [facility] PET scan, intracranial metastasis better demonstrated on current day MRI brain. Normal-sized mildly hypermetabolic left level 2 cervical lymph node which is indeterminate though likely reactive. Otherwise no CT/PET evidence of extracranial disease 12/27/2017 MRI head addendum compared to external brain MRI dated 06/21/2017. The number of clustered small enhancing masses of the right frontal and left cerebellar cortex is increased compared to the old MRI from June/2017. 12/27/2017 tried calling patient to discuss results. Would consider clarifying did she show up for her Kadcyla treatments on time or where she perhaps undertreated. Would also consider radiation therapy consult to see if stereotactic radiation therapy can be done. Chart prep note: are PET scan and MRI had available? Was MRI head on ever compared to prior films? do we3 know If she progressed on kadcyla? 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 Relation Name Status Comments Daughter Alive Son Alive Social History Date Tobacco Use Types Packs/Day Years Used Current Every Day Smoker 1 Smokeless Tobacco: Never Used Tobacco Cessation: Ready to Quit: Yes Alcohol Use Drinks/Week oz/Week Comments No Sex Assigned at Date Recorded Not on file Industry Job Start Date Occupation Not on file Not on file Not on file Travel End Travel History Travel Start No recent travel history available. Last Filed Vital Signs Time Taken Vital Sign Reading 01/24/2018 8:43 AM PANEL SEWER Blood Pressure 151/99 01/24/2018 8:43 AM PANEL SEWER Pulse 84 01/24/2018 8:43 AM PANEL SEWER Temperature 36.7 C (98 F) 01/24/2018 8:43 AM PANEL SEWER Respiratory Rate 18 01/24/2018 8:43 AM PANEL SEWER Oxygen Saturation 97% - Inhaled Oxygen - Concentration 01/24/2018 8:43 AM PANEL SEWER Weight 69 kg (152 lb 3.2 oz) 01/24/2018 8:43 AM PANEL SEWER Height 165.1 cm (5' 5") 01/24/2018 8:43 AM PANEL SEWER Body Mass Index 25.33 Plan of Treatment Health Maintenance Due Date Last Done Comments HEPATITIS C SCREENING 1965 PHYSICAL (COMPREHENSIVE) 11/07/1971 EXAM HIV SCREENING 11/07/1979 DTAP/TDAP VACCINES (1 - 1982 Tdap) CERVICAL CANCER SCREENING 1994 BREAST CANCER SCREENING 2004 COLORECTAL CANCER 2014 SCREENING SHINGLES RECOMBINANT 2014 VACCINE (1 of 2) INFLUENZA VACCINE 09/07/2017 Procedures Comments Procedure Name Priority Date/Time Associated Diagnosis MRI HEAD WO/W CONTRAST Routine 12/22/2017 Inflammatory carcinoma of 4:10 PM PANEL SEWER right breast (HCC) Malignant neoplasm of breast metastatic to brain, unspecified laterality (HCC) NM PET SCAN TORSO Routine 12/22/2017 Inflammatory carcinoma of (SKULL-THIGHS) 2:51 PM PANEL SEWER right breast (HCC) Malignant neoplasm of breast metastatic to brain, unspecified laterality (HCC) POC GLUCOSE 12/22/2017 1:19 PM PANEL SEWER from Last 3 Months Results * MRI HEAD WO/W CONTRAST (12/22/2017 4:10 PM PANEL SEWER) Addenda Addendum by Giovanni Valera MD on 12/27/2017 10:30 AM Finalized by Giovanni Valera M.D. on 12/22/2017 5:39 PM. Dictated by Yosef Hwang DO on 12/22/2017 4:38 PM.Addendum: Reason for addendum: Comparison images were clouded for review after the initial interpretation and tile fitter on 12/22/2017. Comparison: External brain MRI dated June 21, 2017. The number of clustered small enhancing masses at the right frontal and left cerebellar cortex is increased compared to the submitted old June 2017 MRI. This MRI demonstrates more confluent single irregular lesions at that time The left cerebellopontine angle extra-axial nodule is unchanged and most likely a meningioma. The right occipital cortical T2 hyperintense cystic focus is unchanged and favored to be benign. Additional confluent regions of FLAIR hyperintensity throughout the supratentorial white matter have increased from the comparison examination and are likely post therapeutic. Approved by Yosef Hwang DO on 12/26/2017 4:27 By my electronic signature, I attest that I have personally reviewed the images for this examination and formulated the interpretations and opinions expressed in this report Finalized by Giovanni Valera M.D. on 12/27/2017 10:27 AM. Dictated by Yosef Hwang DO on 12/26/2017 4:13 PM. Impressions Performed At 1.Development of multiple clustered metastases along the right frontal [facility] cortex and left cerebellum, probably from leptomeningeal metastases. 2.Small homogeneously enhancing extra-axial nodule at the left cerebellopontine angle, favored for a small meningioma a dural metastasis is thought somewhat less likely.. 3.Tiny right occipital cortical T2 hyperintense cystic focus with marginal FLAIR hyperintensity and a small enhancing adjacent vessel is indeterminate and could reflect sequela of prior insult or small cystic metastatic lesion. Attention on follow-up is suggested. 4.Confluent areas of FLAIR hyperintensity throughout the supratentorial white matter, at least in part related to postradiotherapy changes. By my electronic signature, I attest that I have personally reviewed the images for this examination and formulated the interpretations and opinions expressed in this report Narrative Performed At EXAM: MRI BRAIN [facility] HISTORY: Monitor breast cancer response to chemotherapy, status post whole brain radiation TECHNIQUE: Multiplanar and multisequence MR imaging of the head was performed. This was done both before and after the administration of MultiHancecontrast. COMPARISON: The referenced external examination is unavailable for review. FINDINGS: Dr. Giovanni Valera M.D. has personally reviewed these images and formulated the interpretations and opinions expressed in this report. There is a grouping of enhancing sulcal or cortical nodular metastases along the right superior frontal gyrus, the largest of which measures up to 8 mm in greatest axial dimensions with minimal underlying cerebral vasogenic edema. A second grouping of enhancing nodular posterior inferior left cerebellar metastases is visualizedthe largest of which measures up to 10 mm in greatest axial dimensions. There is mild associated left cerebellar edema. There is an 8-9 mm homogeneously enhancing extra-axial nodule at the left cerebellopontine angle (series 14, image 53) which is not specific though favored for a small meningioma. A tiny cortical T2 hyperintense cystic focus with marginal FLAIR hyperintensity and a small adjacent enhancing vessel is identified in the right occipital lobe on series 14, image 83). There are confluent areas of FLAIR hyperintensity throughout the supratentorial white matter, which are at least in part related to post-radiotherapy changes. There is no midline shift or herniation. No hydrocephalus. The vascular flow-voids are unremarkable. Diffusion weighted imaging is not indicative of acute or recent infarct. There are bilateral mastoid effusions, right larger than the left. Procedure Note Interface, Radiant Results - 12/27/2017 10:30 AM PANEL SEWER EXAM: MRI BRAIN HISTORY: Monitor breast cancer response to chemotherapy, status post whole brain radiation TECHNIQUE: Multiplanar and multisequence MR imaging of the head was performed. This was done both before and after the administration of MultiHancecontrast. COMPARISON: The referenced external examination is unavailable for review. FINDINGS: Dr. Giovanni Valera M.D. has personally reviewed these images and formulated the interpretations and opinions expressed in this report. There is a grouping of enhancing sulcal or cortical nodular metastases along the right superior frontal gyrus, the largest of which measures up to 8 mm in greatest axial dimensions with minimal underlying cerebral vasogenic edema. A second grouping of enhancing nodular posterior inferior left cerebellar metastases is visualized the largest of which measures up to 10 mm in greatest axial dimensions. There is mild associated left cerebellar edema. There is an 8-9 mm homogeneously enhancing extra-axial nodule at the left cerebellopontine angle (series 14, image 53) which is not specific though favored for a small meningioma. A tiny cortical T2 hyperintense cystic focus with marginal FLAIR hyperintensity and a small adjacent enhancing vessel is identified in the right occipital lobe on series 14, image 83). There are confluent areas of FLAIR hyperintensity throughout the supratentorial white matter, which are at least in part related to post-radiotherapy changes. There is no midline shift or herniation. No hydrocephalus. The vascular flow- voids are unremarkable. Diffusion weighted imaging is not indicative of acute or recent infarct. There are bilateral mastoid effusions, right larger than the left. IMPRESSION 1. 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 2. Small homogeneously enhancing extra-axial nodule at the left cerebellopontine angle, favored for a small meningioma a dural metastasis is thought somewhat less likely.. 3. Tiny right occipital cortical T2 hyperintense cystic focus with marginal FLAIR hyperintensity and a small enhancing adjacent vessel is indeterminate and could reflect sequela of prior insult or small cystic metastatic lesion. Attention on follow-up is suggested. 4. Confluent areas of FLAIR hyperintensity throughout the supratentorial white matter, at least in part related to postradiotherapy changes. By my electronic signature, I attest that I have personally reviewed the images for this examination and formulated the interpretations and opinions expressed in this report Performing Organization Address City/State/Zipcode Phone Number [facility] RESULTS * [place] PET SCAN TORSO (SKULL-THIGHS) (12/22/2017 2:51 PM PANEL SEWER) Impressions Performed At 1. Intracranial metastatic disease better demonstrated on current day MRI brain. [facility] 2. Normal sized mildly hypermetabolic left level 2 cervical lymph node which is indeterminate, though likely reactive. Continued attention on follow-up recommended. 3. Otherwise, no PET/CT evidence of extracranial metastatic disease. By my electronic signature, I attest that I have personally reviewed the images for this examination and formulated the interpretations and opinions expressed in this report Finalized by Keshawn Anderson M.D. on 12/22/2017 4:03 PM. Dictated by Juan Perry M.D. on 12/22/2017 3:04 PM. Narrative Performed At [place] PET SCAN TORSO (SKULL-THIGHS) [facility] Radiopharmaceutical:11.8 mCi F-18 Fluorodeoxyglucose (FDG) IV. Clinical Indication:52-year-old female. 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 Secondary malignant neoplasm of bone. Technique: Beginning approximately 66 minutes after tracer administration, routine whole body PET/CT imaging was performed from the skull to proximal thighs. PET images were reviewed in standard orthogonal projections. Low dose non-contrast CT imaging was performed for attenuation correction and localization purposes. The current mean hepatic SUV (reported for quality rep purposes) is 1.8. Blood glucose level (at the time of radiopharmaceutical administration): 85 mg/dL Comparison: MRI head same day. PET/CT June 21, 2017. FINDINGS: Head/Neck: Focal photopenia along the right frontal lobe which is incompletely characterized. Partially calcified mild hypermetabolic posterior left cerebellar lesion. Increased conspicuity of normal sized mildly hypermetabolic left level 2 cervical lymph node with a maximum SUV of 3.1 (image 62, index 208). Chest: No suspicious hypermetabolic lesion(s). Abdomen/Pelvis: No suspicious hypermetabolic lesion(s). Osseous Structures: Mild diffuse heterogeneous marrow hypermetabolism, likely secondary to reactive marrow hyperplasia, without focal hypermetabolic or suspicious sclerotic osseous lesion. Additional CT findings: See same-day MRI head for additional findings. Left-sided IJ chest port with tip in the low SVC. Minimal thymic tissue. Mild right basilar atelectasis. Mild low-attenuation thickening of the left adrenal gland without significant increased FDG uptake, likely benign adenomatous hyperplasia. Prior cholecystectomy. Distal colonic diverticulosis. Prior bilateral mastectomies and right axillary lymph node dissection. Grade 1 anterolisthesis of L4 on L5. Procedure Note Interface, Radiant Results - 12/22/2017 4:06 PM PANEL SEWER NM PET SCAN TORSO (SKULL-THIGHS) Radiopharmaceutical: 11.8 mCi F-18 Fluorodeoxyglucose (FDG) IV. Clinical Indication: 52-year-old female. 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 Secondary malignant neoplasm of bone. Technique: Beginning approximately 66 minutes after tracer administration, routine whole body PET/CT imaging was performed from the skull to proximal thighs. PET images were reviewed in standard orthogonal projections. Low dose non-contrast CT imaging was performed for attenuation correction and localization purposes. The current mean hepatic SUV (reported for quality rep purposes) is 1.8. Blood glucose level (at the time of radiopharmaceutical administration): 85 mg/ dL Comparison: MRI head same day. PET/CT June 21, 2017. FINDINGS: Head/Neck: Focal photopenia along the right frontal lobe which is incompletely characterized. Partially calcified mild hypermetabolic posterior left cerebellar lesion. Increased conspicuity of normal sized mildly hypermetabolic left level 2 cervical lymph node with a maximum SUV of 3.1 (image 62, index 208) . Chest: No suspicious hypermetabolic lesion(s). Abdomen/Pelvis: No suspicious hypermetabolic lesion(s). Osseous Structures: Mild diffuse heterogeneous marrow hypermetabolism, likely secondary to reactive marrow hyperplasia, without focal hypermetabolic or suspicious sclerotic osseous lesion. Additional CT findings: See same-day MRI head for additional findings. Left- sided IJ chest port with tip in the low SVC. Minimal thymic tissue. Mild right basilar atelectasis. Mild low-attenuation thickening of the left adrenal gland without significant increased FDG uptake, likely benign adenomatous hyperplasia. Prior cholecystectomy. Distal colonic diverticulosis. Prior bilateral mastectomies and right axillary lymph node dissection. Grade 1 anterolisthesis of L4 on L5. IMPRESSION 1. Intracranial metastatic disease better demonstrated on current day MRI brain. 2. Normal sized mildly hypermetabolic left level 2 cervical lymph node which is indeterminate, though likely reactive. Continued attention on follow-up recommended. 3. Otherwise, no PET/CT evidence of extracranial metastatic disease. By my electronic signature, I attest that I have personally reviewed the images for this examination and formulated the interpretations and opinions expressed in this report Finalized by Keshawn Anderson M.D. on 12/22/2017 4:03 PM. Dictated by Juan Perry M.D. on 12/22/2017 3:04 PM. Performing Organization Address City/State/Zipcode Phone Number [facility] RESULTS * POC GLUCOSE (12/22/2017 1:19 PM PANEL SEWER) Glucose, POC 85 70 - 100 MG/DL [facility] Performing Organization Address City/State/Zipcode Phone Number [facility] [address] [place] [address] from Last 3 Months Insurance Payer Benefit Subscriber ID Type Phone Address Plan / Group MEDICARE MEDICARE xxxxxxxxxxx Medicare PART A AND B [facility] MEDICAID [place] [facility] xxxxxxxxxxx Medicaid [employer] [place] [facility] xxxxxxxxxx [place] [facility] Advance Directives Patient has advance care planning documents on file. For more information, please contact: [facility] [address] [place] [address]
--- OUTSIDE RECORDS SUMMARY | 2018-03-18 21:24 | XMS REPORT | Encounter Summary ---
Author Author [facility] Organization [facility] Address Unknown Phone Unavailable Care Team Providers Care Tying In Machine Operator Name Role Phone Porfirio Spence MD PCP Agustina Vines DO Unavailable Reason for Visit * Reason Comments Care Coordination patient wanted plan of care Encounter Details Care Team Description Date [place] [address] [address] [phone] Care Coordination (patient wanted plan of care) 01/27/2018 Telephone [facility] - OP Exam [address] [address] Social History Date Tobacco Use Types Packs/Day Years Used Current Every Day Smoker 1 Smokeless Tobacco: Never Used Alcohol Use Drinks/Week oz/Week Comments No Sex Assigned at Date Recorded Not on file Industry Job Start Date Occupation Not on file Not on file Not on file Travel End Travel History Travel Start No recent travel history available. as of this encounter Functional Status Date of Assessment Functional Status Response 01/24/2018 Does the patient have a hearing impairment: No 01/24/2018 Does the patient have a visual impairment: Yes 01/24/2018 Does the patient have impaired ambulation: No 01/24/2018 Does the patient have an activity of daily living No (ADL) impairment: 01/24/2018 Does the patient have an instrumental activity of No daily living (IADL) impairment: Date of Assessment Cognitive Status Response 01/24/2018 Does the patient have a cognitive impairment: No as of this encounter Miscellaneous Notes * Telephone Encounter - Liliana Monroy RN - 01/27/2018 1:16 PM AUTO FINANCE SALES REP F/u with patient about upcoming appt. Patient stated she does not have anyone that can come with her. She does not want to come to be told how she is going to . Discussed with Dr. Lopez and unfortunately there are not many options at this time for this patient. Informed patient. At this time the patient would like to thank Dr. Lopez for his care, she will think about getting a second opinion, and she would like to cancel the appt with Dr. Lopez at this time. Will send to schedulers. No further questions at this time. FINANCE SALES REP in this encounter Plan of Treatment Not on fileas of this encounter Visit Diagnoses Not on filein this encounter
--- OUTSIDE RECORDS SUMMARY | 2018-03-18 21:25 | XMS REPORT | Encounter Summary ---
Author Author [facility] Organization [facility] Address Unknown Phone Unavailable Care Team Providers Care Field Crop Technical Officer Name Role Phone Porfirio Spence MD PCP Reason for Visit * Reason Comments Medication Request Encounter Details Care Team Description Date [place] [address] [phone] Medication Request 12/20/2017 Telephone [facility] - OP Exam [address] [address] Social History Date Tobacco Use [...] Status Date of Assessment Functional Status Response 11/28/2017 Does the patient have a hearing impairment: No 11/28/2017 Does the patient have a visual impairment: Yes 11/28/2017 Does the patient have impaired ambulation: No 11/28/2017 Does the patient have an activity of daily living No (ADL) impairment: 11/28/2017 Does the patient have an instrumental activity of No daily living (IADL) impairment: Date of Assessment Cognitive Status Response 11/28/2017 Does the patient have a cognitive impairment: No as of this encounter Miscellaneous Notes * Telephone Encounter - Gabe Alexis RN - 12/20/2017 10:13 AM SOIL SCIENTIST Pt. request Valium 2 mg called to retail pharmacy for her to take before her Pet scan and MRI today at . Discuss pt request with Dr McKittrick and approved med for pt. [facility] [id number]. Pt. notified. SCIENTIST in this encounter Plan of Treatment Not on fileas of this encounter Visit Diagnoses Not on filein this encounter
--- OUTSIDE RECORDS SUMMARY | 2018-03-18 21:25 | XMS REPORT | Encounter Summary ---
Author Author [facility] Organization [facility] Address Unknown Phone Unavailable Care Team Providers Care Professional Fighter Name Role Phone Porfirio Spence MD PCP Agustina Vines DO Unavailable Reason for Visit * Reason Comments Care Coordination patient called to discuss upcoming appt Encounter Details Care Team Description Date [place] [address] [address] [phone] Care Coordination (patient called to discuss upcoming appt ) 01/27/2018 Telephone [facility] - OP Exam [address] [address] Social History Date Tobacco Use [...] Encounter - Liliana Monroy RN - 01/27/2018 10:45 AM HAND FILER BALANCE WHEEL Patient called to inquire what her upcoming appt was about. She stated "If Dr. Lopez has options for me then that is fine but if he does not and only wants to talk to me about dying I am not interested." Patient also informed this RN that she already has a hospice agency lined up and stated that it is with [facility]. She also stated that her friend who is an MERRY GO ROUND ATTENDANT can take good care of her and she will live with her. Informed patient that this RN would confer with Dr. Lopez and get back to her. No further questions at this time. FILER BALANCE WHEEL in this encounter Plan of Treatment Not on fileas of this encounter Visit Diagnoses Not on filein this encounter
--- OUTSIDE RECORDS SUMMARY | 2018-03-18 21:25 | XMS REPORT | Encounter Summary ---
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, unspecified laterality (HCC) P rocedures MRI HEAD WO/W CONTRAST * Radiology Services (Routine) Referred By Contact Referred To Contact Status Reason Specialty Diagnoses / [place] [address] [place] [address] Mri 1st fl [address] [place] [address] Closed Radiology Diagnoses 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, unspecified laterality (HCC) P rocedures MRI HEAD WO/W CONTRAST Reason for Visit * Radiology Services (Routine) Referred By Contact Referred To Contact Status Reason Specialty Diagnoses / [place] [address] [place] [address] Mri 1st fl [address] [place] [address] Closed Radiology Diagnoses 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, unspecified laterality (HCC) P rocedures MRI HEAD WO/W CONTRAST Encounter Details Care Team Description Date [place] [address] [place] [address] [phone] 12/22/2017 [facility] Encounter [facility] 1[address] [place] [address] Social History Date Tobacco Use Types Packs/Day [...] cognitive impairment: No as of this encounter Medications at Time of Discharge Start Date End Date Medication Sig Dispensed Refills 12/20/2017 diazePAM (VALIUM) 2 mg Take 1 tablet 6 tablet 0 tablet by mouth 30 mins before MRI and PET scan for anxiety, Can repeat as needed. ibuprofen (MOTRIN) 600 mg Take 600 mg 0 tablet by mouth every 8 hours as needed for Pain. Take with food. 01/11/2018 GABAPENTIN ENACARBIL PO Take by 0 mouth. 01/11/2018 OMEPRAZOLE PO Take 300 mg 0 by mouth daily. 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 on 12/22/2017 5:39 PM. Dictated by Yosef Hwang DO on 12/22/2017 4:38 PM.Addendum: Reason for addendum: Comparison images were clouded for review after the initial interpretation and boilermaker mechanic on 12/22/2017. 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
--- OUTSIDE RECORDS SUMMARY | 2018-03-18 21:25 | XMS REPORT | Encounter Summary ---
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 as of this encounter Last Filed Vital Signs Time Taken Vital Sign Reading 01/24/2018 8:43 AM TELETYPE CLERK Blood Pressure 151/99 01/24/2018 8:43 AM TELETYPE CLERK Pulse 84 01/24/2018 8:43 AM TELETYPE CLERK Temperature 36.7 C (98 F) 01/24/2018 8:43 AM TELETYPE CLERK Respiratory Rate 18 01/24/2018 8:43 AM TELETYPE CLERK Oxygen Saturation 97% - Inhaled Oxygen - Concentration 01/24/2018 8:43 AM TELETYPE CLERK Weight 69 kg (152 lb 3.2 oz) 01/24/2018 8:43 AM TELETYPE CLERK Height 165.1 cm (5' 5") 01/24/2018 8:43 AM TELETYPE CLERK Body Mass Index 25.33 in this encounter Functional Status Date of Assessment [...] cognitive impairment: No as of this encounter Progress Notes * Tonja Aguilera MD - 01/24/2018 9:00 AM TELETYPE CLERK Radiation Oncology Consultation Date: 01/24/2018 Jeanette Ovalle is a 52 y.o. female. [facility] The primary encounter diagnosis was Secondary malignant neoplasm of bone (HCC). Diagnoses of Inflammatory carcinoma of right breast (HCC), History of cancer metastatic to brain, and Leptomeningeal metastases (HCC) were also pertinent to this visit. Staging: metastatic History of Present Illness: Jeanette Ovalle is a 52 y.o. female who was seen for consultation and evaluation today for progressive brain metastasis after receiving whole brain treatment a year ago. In reviewing her outside records the patient was originally diagnosed as having breast carcinoma December 2014. There was involvement of the skin and the patient began neoadjuvant Adriamycin Cytoxan January 2015. She completed Taxotere Herceptin per Margi and on 07/28/2015 she underwent bilateral mastectomies at [facility] in [facility]. There was no evidence of disease reported and she continued on Herceptin. She received postmastectomy radiation therapy at that time, and treatment was delivered at [facility] in [facility]. Her radiation therapy was complete June 2016. 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 She completed treatment to the whole brain 01/12/2017. A total dose of 3000 cGy was delivered in 10 fractions. Following treatment to the whole brain she started Xeloda and lapatinib. She ultimately transferred her care to Dr. Agustina Vines at [facility] and most recently she had a PET/CT and MRI performed in June with an enhancing right frontal lobe mass measuring 1.7 cm in size. The patient began Kadcyla treatment and she ultimately sought another opinion with Dr. Lopez.. An MRI of the patient's brain performed 12/22/2017 demonstrates a grouping of enhancing nodular metastasis along the right superior frontal gyrus measuring up to 8 mm in greatest dimension with a second grouping of enhancing nodular posterior inferior left cerebellar metastasis present the largest measures a centimeter in greatest dimension with associated left cerebellar edema. A tiny cortical hyperintense cystic focus is noted in the region of the right occipital area. The area of clustered metastasis in the right frontal cortex and left cerebellum are felt to be from leptomeningeal metastasis. I discussed this with the patient, and in fact I even showed her the films. She did have a PET scan performed also on 12/22/2017 and this demonstrated an indeterminate level 2 cervical node but otherwise there was no evidence of extracranial metastatic disease. In meeting with the patient she frequently was very emotional and then immediately would be very calm she periodically would cry and say she was going to and then say that Ken would save her. She comes to clinic alone today. Past Medical History: Patient Active Problem List Diagnosis Date Noted Secondary malignant neoplasm of bone (HCC) 01/21/2017 Inflammatory carcinoma of right breast (HCC) 05/23/2015 Personality disorder (HCC) 09/10/2014 Depressive disorder, not elsewhere classified 09/10/2014 Past Medical History: Diagnosis Date Acute chest pain 08/30/2017 CTA negative. Anxiety and depression 1989' personality disorder. Has taken Depakote and Abilify in the past. (? bipolar) Arm fracture, left Arthritis Asthma Breast cancer metastasized to bone (HCC) 01/17/2017 calvarial bone met per bone scan and xray 4 days later +. Breast cancer metastasized to brain (HCC) 12/29/[address] head. (R frontal and L cerebellar mass lesions). 06/2017 progression of brain mets (1.7cm R frontal lobe). 12/22/2017 further progression of brain mets with possible leptomeningeal mets. Breast cancer, left (HCC) 01/03/2015 infiltrating lobular carcinoma ER/UT 0, HER-2 + and Ki-67=15%. [facility] in [place] Cancer of cervix (HCC) 1984 COPD (chronic obstructive pulmonary disease) (HCC) Genetic testing 04/2015 negative per patient.(done in [place]) GERD (gastroesophageal reflux disease) History of chemotherapy 01/27/2015-07/10/2015 AC x4 cycles 01/27/2015-03/31/2015 and THP x4 cycles 05/01/2015-07/10/2015. Resumed Herceptin 08/31/2015-06/04/2016.. Dr Nano Bauman. History of chemotherapy 02/07/2017-06/27/2017 Xeloda and Tykerb started with Dr Ricci Patel and then the patient tranferred care to Dr Agustina Vines. History of chemotherapy 07/[address] Vines d/t progression of brain mets. History of hepatitis B HLD (hyperlipidemia) Hx of radiation therapy 04/29/2016-06/24/2016 started XRT late d/t noncompliant with treatment. Dr Robert Shaffer in [place], [place] Hx of radiation therapy 12/30/2016-01/12/2017 Whole brain treated with [address] Robert Shaffer in [place], [place] Hypertension Inflammatory breast carcinoma, right (HCC) 03/19/2015 [facility] in [place] 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 C/o WOLF. CT + brain mets. Ulcer (traumatic) of oral mucosa Vision decreased Past Surgical History: Procedure Laterality Date CERVIX LESION DESTRUCTION 1983 BREAST BIOPSY Left 01/03/2015 + infiltrating lobular carcinoma. BREAST BIOPSY Right 03/19/2015 inflammatory breast ca. LYMPH NODE BIOPSY Right 08/05/2015 0/9 axillary SLN. MASTECTOMY Bilateral 08/05/2015 L skin sparing mastectomy and R MRM negative path. Dr Rosario at [facility] in [place], [place] TUNNELED VENOUS PORT REMOVAL 07/2016 SECTION HX APPENDECTOMY HX CHOLECYSTECTOMY PORTACATH PLACEMENT 01/2015 & 07/19/2017 Prior Radiation History:yes Medications albuterol (PROAIR HFA, VENTOLIN HFA, OR PROVENTIL HFA) 90 mcg/actuation inhaler Inhale 2 puffs by mouth into the lungs every 4 hours as needed for Wheezing or Shortness of Breath. Shake well before use. diazePAM (VALIUM) 2 mg tablet Take 1 tablet by mouth 30 mins before MRI and PET scan for anxiety, Can repeat as needed. gabapentin (NEURONTIN) 300 mg capsule Take 300 mg by mouth twice daily. ibuprofen (MOTRIN) 600 mg tablet Take 600 mg by mouth every 8 hours as needed for Pain. Take with food. loratadine (CLARITIN) 10 mg tablet Take 10 mg by mouth as directed. omeprazole DR(+) (PRILOSEC) 40 mg capsule Take 40 mg by mouth daily before breakfast. oxyCODONE-acetaminophen(+) (PERCOCET; ENDOCET) 7.5-325 mg tablet Take 1-2 tablets by mouth every 6 hours as needed prochlorperazine maleate (COMPAZINE) 10 mg tablet Take 10 mg by mouth every 6 hours as needed for Nausea or Vomiting. Allergies: Allergies Allergen Reactions Ciprofloxacin HIVES Benadryl [Diphenhydramine-Zinc Acetate] AGITATION Haldol [Haloperidol Lactate] SEE COMMENTS Makes her temp rise. Social History: Social History Socioeconomic History Marital status: Spouse name: Not on file Number of children: 2 Years of education: Not on file Highest education level: Not on file Social Needs Financial resource strain: Not on file Food insecurity - worry: Not on file Food insecurity - inability: Not on file Transportation needs - medical: Not on file Transportation needs - non-medical: Not on file Occupational History Occupation: [employer] Tobacco Use Smoking status: Current Every Day Smoker Packs/day: 1.00 Smokeless tobacco: Never Used Substance and Sexual Activity Alcohol use: No Drug use: No Sexual activity: Not on file Other Topics Concern Not on file Social History Narrative Not on file The patient is lived in a number of states over the years. 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 She lives in [facility]. She is and lives alone. Her daughter recently moved to [facility] and her son does have some mental health problems. She reports that she has 4 grandchildren from her daughter and her son had one child but they do not know the location of that child. The patient has smoked a pack of cigarettes a day for at least 30 years. She denies alcohol use. Family History: Family History Adopted: Yes Problem Relation Age of Onset Mental Illness Son lives in [place] with his father. Review of Systems Constitutional: Positive for diaphoresis and fatigue. HENT: Positive for ear discharge, hearing loss, nosebleeds, rhinorrhea and tinnitus. Eyes: Positive for photophobia and visual disturbance. Respiratory: Positive for cough and stridor. Cardiovascular: Positive for palpitations. Gastrointestinal: Positive for nausea. Neurological: Positive for dizziness, speech difficulty, weakness, light- headedness and numbness. Psychiatric/Behavioral: Positive for confusion and decreased concentration. The patient is nervous/anxious. The patient completed a paper copy of a 14 system review. I reviewed this with the patient and it is as listed. It is the institution policy to destroy these paper copies. Patient Evaluated for a Clinical Trial: No treatment clinical trial available for this patient. KARNOFSKY PERFORMANCE SCORE: 80% Normal activity with effort; some symptoms of disease Physical Exam demonstrates a middle-aged female in no acute distress cranial nerves are intact by confrontation. She does not have any palpable cervical nor supraclavicular adenopathy present. She has had bilateral mastectomies performed. Lungs are clear to auscultation. Her mood and affect are labile today. She does not have any peripheral cyanosis clubbing or edema. IMAGING: This is been summarized above PATHOLOGY: The patient's initial pathology demonstrated that the tumor was ER 0 UT 0 HER-2 positive Ki-67 15%. ASSESSMENT: RECOMMENDATIONS: Jeanette Ovalle is a 52-year-old female originally diagnosed as having inflammatory carcinoma of the breast, completing chemotherapy with Herceptin and per Jotte, and then developing metastatic disease to the brain. Patient has completed whole brain treatment and now has evidence of multiple sites of recurrent disease as well as leptomeningeal involvement. I reviewed the actual films with the patient as well as the report. The scans were performed in December, and she states that she was not told the results of these, however there is documentation indicating contrary to this. The patient frequently was crying loudly in the clinic, alternating with being very calm and seeing things were in Ken hands. I do not recommend stereotactic radiation due to the extensive nature of her disease, and I do not recommend repeating whole brain radiation therapy because of the risk of complications of necrosis. I reviewed this information with the patient multiple times, and she seemed to have some understanding of the risk and why I do not recommend this. I have also discussed this with Dr. Lopez, and he agrees. The patient has my contact information should she have any future questions or concerns. 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
--- OUTSIDE RECORDS SUMMARY | 2018-03-18 21:25 | XMS REPORT ---
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 Active 81308700 Problem Malignant neoplasm of unspecified site of right female breast C50.911 Active 369903193 Problem COPD (chronic obstructive pulmonary disease) J44.9 Active 11912416 Problem Arthritis of both hips M12.9 Active 23413995 Problem Cancer related pain G89.3 Active 334953625 Problem Moderate episode of recurrent major depressive disorder F33.1 Active 646221810 Problem Seasonal allergic rhinitis, unspecified allergic rhinitis trigger J30.2 Active 450764649 Problem Malignant neoplasm of right female breast, unspecified site of breast C50.911 Active 589492024 Problem Neuropathy of right foot G57.91 Active 575771845 Problem Tobacco abuse Z72.0 Active 666940580 ALLERGIES Substance Reaction Event Type Date Status Lyrica Unknown Drug Allergy Jan, Active Haldol fever Drug Allergy Jan, Active Cipro diarrhea Drug Allergy Jan, Active zyprexa elevated blood sugar Non Drug Allergy Jan, Active ENCOUNTERS Encounter Location Date Diagnosis [facility] [address] [facility] [id number] [address] Feb, [facility] [address] [id number] [address] Jan, Malignant neoplasm of unspecified site of right female breast C50.911 [facility]ARE [address] [facility] [id number] [place] [address]707 Jan, Vaginal yeast infection B37.3 and Acute nasopharyngitis J00 [place] [address] [place] [id number] [place] [address] 91277- 2140 Dec, COPD (chronic obstructive pulmonary disease) J44.9 [place] [address] [address] [id number] [place] [address] 81994- 1761 Dec, COPD (chronic obstructive pulmonary disease) J44.9 [place] [address] [id number] [place] [address] 32137- 0893 Dec, COPD (chronic obstructive pulmonary disease) J44.9 ; Malignant neoplasm of unspecified site of right female breast C50.911 ; Tobacco abuse Z72.0 and Cancer related pain G89.3 [place] [address] [address] Dec, [place] [address] [address] Dec, Malignant neoplasm of unspecified site of right female breast C50.911 [place] [address] [address]- [address] Nov, Malignant neoplasm of unspecified site of right female breast C50.911 ; 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 ; Moderate episode of recurrent major depressive disorder F33.1 and Encounter for immunization Z23 [place] [address] [id number] [place] [address] 28680- 3816 Nov, [place] [address] [address] [id number] [place] [address] 94830- 5734 Nov, [place] [address] 76640- 1124 Nov, [place] [address] [id number] [place] [address] 67910- 8739 Nov, [place] [address] [address] [id number] [place] [address] 78432- 1117 Oct, COPD (chronic obstructive pulmonary disease) J44.9 ; 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 [id number] [place] [address] 10883- 0509 Oct, [facility] [id number] [place] [address]41- 8933 Oct, [facility] [id number] [place] [address] 15740- 7483 Oct, [facility] [id number] [place] [address] 03579- 5838 Sep, Pneumonia of left lower lobe due to infectious organism J18.1 [facility] [id number] [place] [address] 98930- 6229 Sep, [facility] [id number] [place] [address] 27342- 6067 Sep, [facility] [id number] [place] [address] 59553- 2642 Sep, [facility] [id number] [place] [address] 34167- 0116 Sep, [facility] [address] [place] [address] 51909- 2752 Sep, [facility] [id number] [place] [address] 71116- 8074 Sep, Chest congestion R09.89 [facility] [id number] [place] [address] 93102- 8174 Sep, [facility] [id number] [place] [address] 98214- 1628 Sep, Chest congestion R09.89 [facility] [id number] [place] [address] 24738- 8264 Aug, 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 ; Malignant neoplasm of unspecified site of right female breast C50.911 ; Jaw pain R68.84 and Moderate episode of recurrent major depressive disorder F33.1 [facility] WALK IN [place] [address] [address]1407 Jan, Rash R21 and Hordeolum externum of right lower eyelid H00.[address] 98[address]- [address]3 Jan, [facility] IN [place] [address] 72123 -9811 Nov, Acute non-recurrent frontal sinusitis J01.10 [place] [address] 87804- 5852 Jul, [place] [address] 75750- 1388 Jul, [place] [address] 39124- 8786 Jul, Neuropathy of right foot G57.91 ; Tobacco abuse Z72.0 and Breast cancer, right C50.911 [place] [address] [id number] May, [facility] [place] [address] [id number] [place] [address] 04736 -4695 May, Seasonal allergic rhinitis, unspecified allergic rhinitis trigger J30.2 [facility] IN [address] 8[address] Apr, Acute bacterial conjunctivitis of right eye H10.31 [place] [address] [id number] [place] [address] 99843- 7129 Mar, Malignant neoplasm of right female breast, unspecified site of breast C50.911 ; Acute nasopharyngitis J00 and Bipolar 1 disorder, depressed F31.9 [facility] W[facility] IN [facility]ARE [id number] [place] [address] 02206 -0465 21 Mar, 2016 Subacute frontal sinusitis J01.10 and Cough R05 [facility] WALK IN [facility] [id number] [place] [address] 43830 -2363 14 Mar, 2016 Acute non-recurrent maxillary sinusitis J01.00 [facility] WALK IN CARE [address] 90674 -3378 10 Mar, 2016 Seasonal allergic rhinitis, unspecified allergic rhinitis trigger J30.[address] 50762- 6595 03 Mar, 2016 [place] [address] 75602- 4236 Feb, Bipolar disorder, unspecified F31.9 [place] [address] [id number] [place] [address] 82578- 2596 Feb, [facility] [place] [id number] [place] [address] [phone] Jan, [facility] [place] [id number] [place] [address] [id number] Oct, [facility] [place] [address] [id number] [id number] Oct, [facility] [address] [id number] [place] [address] [id number] Feb, [facility] [place] [id number] [place] [address] [phone] Feb, Bipolar 1 disorder F31.9 ; COPD (chronic obstructive pulmonary disease) J44.9 ; Breast cancer, right C50.911 ; Tachycardia R00.0 and Benign essential hypertension I10 [place] [id number] [place] [address] 69635- 0930 Jan, Sebaceous cyst L72.3 [place] [address] [place] [address] 72474- 2635 Jan, [place] [address] [id number] [place] [address] 81462- 8412 Jan, Malignant neoplasm of right female breast, unspecified site of breast C50.911 [place] [address] [id number] [place] [address] 98898- 5588 Jan, [place] [address] [address] [id number] [place] [address] 26861- 6191 Jan, [place] [address] [address] [id number] [place] [address] 30177- 7362 Jan, Sebaceous cyst L72.3 [place] [address] [address] [id number] [place] [address] 46099- 1545 Dec, [place] [address] [address] [id number] [place] [address] 35211- 8515 Dec, Abnormal mammogram R92.8 and Breast mass N63 [place] [address] [id number] [place] [address] 74266- 7681 Dec, Breast pain, right N64.4 [place] [address] [address] [id number] [place] [address] 77720- 2032 Dec, COPD (chronic obstructive pulmonary disease) J44.9 ; Weight gain R63.5 and Encounter for weight loss counseling Z71.3 [place] [address] [place] [address] 38722- 5644 Dec, [place] [address] [place] [id number] [place] [address] 00832- 5122 Nov, Sebaceous cyst L72.3 [place] [address] [id number] [place] [address] 49468- 4022 Oct, Skin lesion of right arm 709.9 and Localized swelling, mass , and lump of head 784.2 [place] [address] [address] 4092 Oct, [place] [address] [place] [address] 01878- 9457 Oct, [place] [address] [place] [id number] [place] [address] 05692- 6451 Oct, Routine adult health maintenance V70.0 and Fatigue 780.79 [place] [address] [place] [id number] [place] [address] 25573- 6195 16 Oct, 2014 Routine adult health maintenance V70.0 ; COPD (chronic obstructive pulmonary disease) 496 ; Arthritis of both hips 716.95 ; Fatigue 780.79 and Localized swelling, mass, and lump of head 784.2 [place] [address] [place] [address] 13097- 1504 Oct, [place] [address] [place] [id number] [place] [address] 43616- 1246 Sep, COPD (chronic obstructive pulmonary disease) 496 and Bipolar disorder 296.80 IMMUNIZATIONS No Known Immunizations SOCIAL HISTORY Never Assessed REASON FOR VISIT Ear pain and cough JStrasserRN, Yeast infection x2 days PLAN OF CARE Activity Details Follow Up prn Reason: VITAL SIGNS Height 65.5 in 2018-01-12 Weight 151.2 lbs 2018-01-12 Temperature 97.8 degrees Fahrenheit 2018-01-12 Heart Rate 100 bpm 2018-01-12 Respiratory Rate 22 2018-01-12 BMI 24.78 kg/m2 2018-01-12 Blood pressure systolic 130 mmHg 2018-01-12 Blood pressure diastolic 98 mmHg 2018-01-12 MEDICATIONS Medication Instructions Dosage Frequency Start Date End Date Duration Status Omeprazole 20 mg Orally Once a day 1 capsule 24h Active Ibuprofen 600 MG Orally Three times a day 1 tablet with food or milk as needed 8h Nov, 30 days Active Vistaril 25 MG Orally every 8 hrs 1 capsule as needed 8h Nov, Active ProAir HFA 108 (90 base) mcg/act Inhalation 4 times a day 2 puffs as needed 6h Sep, Active Percocet 7.5-325 MG Orally 2 times a day 1 tablet as needed 12h 14 Dec, 2017 28 days Active DM-Guaifenesin ER 60-1200 MG Orally every 12 hrs 1 tablet as needed 12h Jan, 5 days Active Fluconazole 150 MG Orally one time may reapeat in 3 days if needed 1 tablet Jan, 2 doses Active Ipratropium-Albuterol 0.5-2.5 (3) MG/3ML Inhalation every 6 hrs 3 ml 6h Sep, Active Gabapentin 300 mg Orally Three times a day 1 capsule 8h Nov, Active RESULTS No Results PROCEDURES Procedure Date Ordered Result Body Site [facility] VISIT ESTABLISHED PATIENT Jan 12, 2018 INSTRUCTIONS MEDICATIONS ADMINISTERED No Known Medications MEDICAL (GENERAL) HISTORY Type Description Date Medical History bipolar Medical History COPD- PFT 01/2015 Medical History breast cancer- Right - remission since 2014 Medical History Depakote level 01/2015- 93 Medical History pneumonia Surgical History section 1993 Surgical History cholecystectomy Surgical History appendectomy 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
--- OUTSIDE RECORDS SUMMARY | 2018-03-18 21:25 | XMS REPORT | Encounter Summary ---
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, unspecified laterality (HCC) P rocedures NM PET SCAN TORSO (SKULL-THIGHS) * Radiology Services (Routine) Referred By Contact Referred To Contact Status Reason Specialty Diagnoses / [place] [address] [place] [address] [facility] [address] [place] [address] 1100 2650 [place] [address] Closed Radiology Diagnoses 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, unspecified laterality (HCC) P rocedures NM PET SCAN TORSO (SKULL-THIGHS) Reason for Visit * Radiology Services (Routine) Referred By Contact Referred To Contact Status Reason Specialty Diagnoses / [place] [address] [place] [address] [facility] [address] [place] [address] 1100 2650 [place] [address] Closed Radiology Diagnoses 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, unspecified laterality (HCC) P rocedures NM PET SCAN TORSO (SKULL-THIGHS) Encounter Details Care Team Description [place] [address] [place] [address] [phone] 12/22/2017 [facility] Encounter [facility] [address]st [address] [place] [address] [place] [address] Social History Date Tobacco Use Types Packs/Day [...] Comments Procedure Name Priority Date/Time Associated Diagnosis NM PET SCAN TORSO Routine 12/22/2017 Inflammatory carcinoma of (SKULL-THIGHS) 2:51 PM MOLD TOOLING TECHNICIAN right breast (HCC) Malignant neoplasm of breast metastatic to brain, unspecified laterality (HCC) in this encounter Results * NM PET SCAN TORSO (SKULL-THIGHS) (12/22/2017 2:51 PM MOLD TOOLING TECHNICIAN) Impressions Performed At 1. Intracranial metastatic disease [...] on 12/22/2017 3:04 PM. Narrative Performed At [place] PET SCAN TORSO (SKULL-THIGHS) [facility] RESULTS [...] current mean hepatic SUV (reported for quality system manager purposes) is 1.8. Blood glucose level (at [...] Interface, Radiant Results - 12/22/2017 4:06 PM MOLD TOOLING TECHNICIAN NM PET SCAN TORSO (SKULL-THIGHS) [facility]: 11.8 [...] current mean hepatic SUV (reported for quality system manager purposes) is 1.8. Blood glucose level (at [...] PM. 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
--- OUTSIDE RECORDS SUMMARY | 2018-03-18 21:25 | XMS REPORT ---
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 Active 53939535 Problem Malignant neoplasm of unspecified site of right female breast C50.911 Active 481095517 Problem COPD (chronic obstructive pulmonary disease) J44.9 Active 98195056 Problem Arthritis of both hips M12.9 Active 58460151 Problem Cancer related pain G89.3 Active 283815076 Problem Moderate episode of recurrent major depressive disorder F33.1 Active 954771520 Problem Seasonal allergic rhinitis, unspecified allergic rhinitis trigger J30.2 Active 786952760 Problem Malignant neoplasm of right female breast, unspecified site of breast C50.911 Active 739347189 Problem Neuropathy of right foot G57.91 Active 201021390 Problem Tobacco abuse Z72.0 Active 926241840 ALLERGIES No Information ENCOUNTERS Encounter Location Date Diagnosis [facility] [address] [address] Feb, [facility] [address] [place] [address] Jan, Malignant neoplasm of unspecified site of right female breast C50.911 [facility] [id number] [place] [address] 06 Jan, 2018 Vaginal yeast infection B37.3 and Acute nasopharyngitis J00 [facility] [id number] [place] [address] 92707- 1156 Dec, COPD (chronic obstructive pulmonary disease) J44.9 [place] [id number] [place] [address] 06646- 9228 Dec, COPD (chronic obstructive pulmonary disease) J44.9 [place] [id number] [place] [address] 81053- 5238 Dec, COPD (chronic obstructive pulmonary disease) J44.9 ; Malignant neoplasm of unspecified site of right female breast C50.911 ; Tobacco abuse Z72.0 and Cancer related pain G89.3 [place] [id number] [place] [address]35[address] 6291 Dec, [place] [id number] [place] [address] 4793 Dec, Malignant neoplasm of unspecified site of right female breast C50.911 [place] [id number] [place] [address] 39177- 7847 Nov, Malignant neoplasm of unspecified site of right female breast C50.911 ; 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 ; Moderate episode of recurrent major depressive disorder F33.1 and Encounter for immunization Z23 [place] [id number] [place] [address]14- 8252 Nov, [place] [id number] [place] [address] 95897- 6254 Nov, [place] [id number] [place] [address] 58653- 6734 Nov, [place] [id number] [place] [address] 97445- 7625 Nov, [place] [id number] [place] [address] 68877- 0623 Oct, COPD (chronic obstructive pulmonary disease) J44.9 ; 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 and Malignant neoplasm of unspecified site of right female breast C50.911 [place] [address] [address] Oct, [facility] [address] [address] Oct, [facility] [address] [address] Oct, [facility] [address] [address] Sep, Pneumonia of left lower lobe due to infectious organism J18.1 [facility] [id number] [address] Sep, [facility] [address] [address] Sep, [facility] [address] [address] Sep, [facility] [address] [place] [address] 23705- 8823 Sep, [facility] [address] [address] Sep, [facility] [address] [address] Sep, Chest congestion R09.89 [facility] [address] [address] Sep, [facility] [address] [address] 2549 Sep, Chest congestion R09.89 [facility] [address] [address] 2546 Aug, [facility] [address] [address] Jul, [facility] [id number] [address] Jul, 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 ; Malignant neoplasm of unspecified site of right female breast C50.911 ; Jaw pain R68.84 and Moderate episode of recurrent major depressive disorder F33.1 [facility] [address] [address] Jan, Rash R21 and Hordeolum externum of right lower eyelid H00.[address] [address] Jan, [facility] [place] [address] [address] Nov, Acute non-recurrent frontal sinusitis J01.[address] [address] Jul, [address] [address] Jul, [address] [address]- [address] Jul, Neuropathy of right foot G57.91 ; Tobacco abuse Z72.0 and Breast cancer, right C50.[address] [id number] May, [facility] [place] [address] [address] May, Seasonal allergic rhinitis, unspecified allergic rhinitis trigger J30.2 [facility] [place] [address] [address] Apr, Acute bacterial conjunctivitis of right eye H10.[address] [address] Mar, Malignant neoplasm of right female breast, unspecified site of breast C50.911 ; Acute nasopharyngitis J00 and Bipolar 1 disorder, depressed F31.9 [facility] [place] [address] [address] 21 Mar, 2016 Subacute frontal sinusitis J01.10 and Cough R05 [facility] [id number] [place] [address] 33578 -6476 14 Mar, 2016 Acute non-recurrent maxillary sinusitis J01.00 [facility] [id number] [place] [address] 62816 -0844 10 Mar, 2016 Seasonal allergic rhinitis, unspecified allergic rhinitis trigger J30.2 [facility] [address] [address] 03 Mar, 2016 [facility] [address] [address] Feb, Bipolar disorder, unspecified F31.9 [place] [id number] [place] [address] 97055- 9659 Feb, [facility] [id number] [place] [address] [id number] Jan, [facility] [id number] [place] [address] [id number] Oct, [facility] [id number] [place] [id number] Oct, [facility] [id number] [place] [address] [id number] Feb, [facility] [id number] [place] [address] [id number] Feb, Bipolar 1 disorder F31.9 ; COPD (chronic obstructive pulmonary disease) J44.9 ; Breast cancer, right C50.911 ; Tachycardia R00.0 and Benign essential hypertension I10 [facility] [address] [address]- [address] 16 Jan, 2015 Sebaceous cyst L72.3 [place] [id number] [place] [address] 71190- 5[address] 08 Jan, 2015 [facility] [address] [address]- [address] Jan, Malignant neoplasm of right female breast, unspecified site of breast C50.911 [place] [id number] [place] [address] 25720- 7451 Jan, [facility] [id number] [place] [address] 02531- 4124 Jan, [place] [address] [address]- 6792 Jan, Sebaceous cyst L72.3 [place] [address] 14039- 8496 Dec, [place] [address] 6[address]- 9120 Dec, Abnormal mammogram R92.8 and Breast mass N63 [place] [address] [address]- [address] Dec, Breast pain, right N64.4 [place] [id number] [place] [address] 82996- 8574 Dec, COPD (chronic obstructive pulmonary disease) J44.9 ; Weight gain R63.5 and Encounter for weight loss counseling Z71.3 [place] [id number] [place] [address] 51732- 3214 Dec, [place] [id number] [place] [address] 90082- 0064 Nov, Sebaceous cyst L72.3 [place] [id number] [place] [address] 18747- 9411 Oct, Skin lesion of right arm 709.9 and Localized swelling, mass , and lump of head 784.2 [place] [id number] [place] [address] 41491- 1336 Oct, [place] [id number] [place] [address] 44083- 4108 Oct, [facility] [address] [facility] [id number] [address] 18 Oct, 2014 Routine adult health maintenance V70.0 and Fatigue 780.79 [facility] [id number] [address] 16 Oct, 2014 Routine adult health maintenance V70.0 ; COPD (chronic obstructive pulmonary disease) 496 ; Arthritis of both hips 716.95 ; Fatigue 780.79 and Localized swelling, mass, and lump of head 784.2 [facility] [address] [facility] [id number] [address] Oct, [facility] [id number] [address] Sep, COPD (chronic obstructive pulmonary disease) 496 and Bipolar disorder 296.80 IMMUNIZATIONS No Known Immunizations SOCIAL HISTORY Never Assessed REASON FOR VISIT Controlled Med Refill-Due 01/18 PLAN OF CARE VITAL SIGNS MEDICATIONS Medication Instructions Dosage Frequency Start Date End Date Duration Status Percocet 7.5-325 MG Orally 2 times a day 1 tablet as needed 12h 11 Jan, 2018 28 days Active RESULTS No Results PROCEDURES No Known [...] History surgeries Hospitalization History Fever of unknown origin-[facility] 05/24/16
--- OUTSIDE RECORDS SUMMARY | 2018-03-18 21:25 | XMS REPORT | Encounter Summary ---
Author Author [facility] Organization [facility] Address Unknown Phone Unavailable Care Team Providers Care Geological Survey Field Assistant Name Role Phone Porfirio Spence MD PCP Agustina Vines DO Unavailable Reason for Visit * Reason Comments Follow-up Phone Call Encounter Details Care Team Description [place] [address] [id number] Follow-up Phone Call 01/12/2018 Telephone [facility] - OP Exam [address] [address] Social History Date Tobacco Use [...] Telephone Encounter - Gabe Alexis RN - 01/12/2018 11:15 AM FILM SOUND COORDINATOR Pt called to find out if her appointment with Dr Aguilera rad/onc can be moved up from 01/24/18. Checked with the rad/onc project controls scheduler and Dr Aguilera's nurse and there are no availability before 01/24/18. Pt notified and request to see her previous rad/onc Dr Robert Shaffer at [facility] in [place]. Discussed pt request with Dr Lopez and agreed with request. Contact Dr Shaffer nurse Alethea. Request the records including recent MRI report fax to [phone] and she will discuss report with Dr Shaffer and call the pt to schedule follow up appointment. Records fax and pt notified. SOUND COORDINATOR in this encounter Plan of Treatment Not on fileas of this encounter Visit Diagnoses Not on filein this encounter
--- OUTSIDE RECORDS SUMMARY | 2018-03-18 21:25 | XMS REPORT | Encounter Summary ---
Author Author [facility] Organization [facility] Address Unknown Phone Unavailable Care Team Providers Care Print Operator Name Role Phone Porfirio Spence MD PCP Reason for Referral * Consult, Test & Treat (Routine) Referred By Contact Referred To Contact Status Reason Specialty Diagnoses / [place] [address] [place] [address] [facility] [place] [address] [place] [address] Closed Specialty Services Radiation Diagnoses Required Therapy Inflammatory carcinoma of right breast (HCC) Abnormal MRI of the head Scheduling Instructions This referral requires a phone call to schedule with Radiation Oncology. See locations below: CC RADIATION THERAPY: [facility] RAD THER: [facility] RAD THER: [facility] RAD THER: Reason for Visit * Reason Comments Follow-up Phone Call Encounter Details Care Team Description [place] [address] [place] [address] [phone] Follow-up Phone Call 12/28/2017 Telephone [facility] - OP Exam [address] [place] [phone] Social History Date Tobacco Use Types Packs/Day [...] Telephone Encounter - Gabe Alexis RN - 12/28/2017 1:09 PM TYPE ROLLING MACHINE OPERATOR Talked with the pt and she confirmed keeping all her Kadcyla treatment appointment at [facility]. Pt would like to see radiation oncologist at OP location. Referral order sent to scheduling. Pt is aware the office is closed until next week. ----- Message from Seth Lopez MD sent at 12/27/2017 5:54 PM TYPE ROLLING MACHINE OPERATOR ---- - 12/27/2017 tried calling patient to discuss results. Please call the patient and let her know that her MRI of the head looks slightly worse than in June. Please try to find out whether she needed to most of her Kadcyla appointments at [facility] on time or whether she had missed many doses over they were delayed. One consideration would be to restart the Kadcyla and make sure that she comes in on a scheduled basis. If on the other hand she was able to make it to most of his appointments then another consideration would be stereotactic radiation therapy. We could consult radiation oncology to see if they can offer more radiation therapy. I tried calling the patient but no one answered and I was not able to leave a message. Let me know if you find out please ROLLING MACHINE OPERATOR in this encounter Plan of Treatment Order Schedule Name Priority Associated Diagnoses Ordered: 12/28/2017 AMB REFERRAL TO RADIATION ONCOLOGY Routine Inflammatory carcinoma of right breast (HCC) Abnormal MRI of the head as of this encounter Visit Diagnoses Diagnosis Inflammatory carcinoma of right breast (HCC) - Primary Abnormal MRI of the head Nonspecific (abnormal) findings on radiological and other examination of skull and head in this encounter
--- OUTSIDE RECORDS SUMMARY | 2018-03-18 21:25 | XMS REPORT | Encounter Summary ---
Author Author [facility] Organization [facility] Address Unknown Phone Unavailable Care Team Providers Care Health Evaluator Name Role Phone Porfirio Spence MD PCP Agustina Vinse DO Unavailable Encounter Details Care Team Description Date [place] [address] [address] [phone] 01/24/2018 Orders Only [facility] - OP Exam [address] [address] Social History Date Tobacco Use [...] as of this encounter Progress Notes * Angelika Crawford - 01/24/2018 10:13 AM STUDENT FINANCIAL SERVICES COUNSELOR LEFT MSG REG APPT. MUST BRING SOMEONE TO APT PER ENT FINANCIAL SERVICES COUNSELOR * Gabe Alexis, BARRY - 01/24/2018 10:13 AM STUDENT FINANCIAL SERVICES COUNSELOR Verbal order received from Dr Lopez for follow up visit with her family to discuss her care. Scheduling notified. and pt. instructed she should have someone come in with her for this appointment. Pt verbalized understanding. ENT FINANCIAL SERVICES COUNSELOR in this encounter Plan of Treatment Not on fileas of this encounter Visit Diagnoses Not on filein this encounter
--- OUTSIDE RECORDS SUMMARY | 2018-03-18 21:26 | XMS REPORT ---
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 Active 70726488 Problem Malignant neoplasm of unspecified site of right female breast C50.911 Active 379136641 Problem COPD (chronic obstructive pulmonary disease) J44.9 Active 45634662 Problem Arthritis of both hips M12.9 Active 51885637 Problem Cancer related pain G89.3 Active 467474725 Problem Moderate episode of recurrent major depressive disorder F33.1 Active 977946898 Problem Seasonal allergic rhinitis, unspecified allergic rhinitis trigger J30.2 Active 663547842 Problem Malignant neoplasm of right female breast, unspecified site of breast C50.911 Active 755588203 Problem Neuropathy of right foot G57.91 Active 706156384 Problem Tobacco abuse Z72.0 Active 435423809 ALLERGIES No Information ENCOUNTERS Encounter Location Date Diagnosis [facility] [id number] [address] Dec, COPD (chronic obstructive pulmonary disease) J44.9 [facility] [address] [facility] [id number] [address] Dec, COPD (chronic obstructive pulmonary disease) J44.9 [facility] [id number] [address] Dec, COPD (chronic obstructive pulmonary disease) J44.9 ; Malignant neoplasm of unspecified site of right female breast C50.911 ; Tobacco abuse Z72.0 and Cancer related pain G89.3 [facility] [id number] [place] [address] 45770- 8990 Dec, [facility] [id number] [place] [address] 99423- 7275 Dec, Malignant neoplasm of unspecified site of right female breast C50.911 [place] [id number] [place] [address] 21971- 7068 Nov, Malignant neoplasm of unspecified site of right female breast C50.911 ; 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 ; Moderate episode of recurrent major depressive disorder F33.1 and Encounter for immunization Z23 [place] [id number] [place] [address] 32456- 4746 Nov, [place] [id number] [place] [address] 53044- 7618 Nov, [place] [id number] [place] [address] 25785- 3786 Nov, [facility] [id number] [place] [address] 32567- 0214 Nov, [place] [id number] [place] [address] 42820- 5231 Oct, COPD (chronic obstructive pulmonary disease) J44.9 ; 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 and Malignant neoplasm of unspecified site of right female breast C50.911 [facility] [address] [place] [address] 36272- 5798 Oct, [facility] [id number] [place] [address] 86579- 4152 Oct, [facility] [id number] [place] [address] 89441- 6453 Oct, [facility] [address] [place] [address] 48647- 4079 Sep, Pneumonia of left lower lobe due to infectious organism J18.1 [facility] [address] [address] Sep, [facility] [id number] [place] [address] 11454- 0019 Sep, [facility] [id number] [place] [address] 33806- 6197 Sep, [facility] [id number] [place] [address] 28437- 4894 Sep, [facility] [id number] [place] [address] 16324- 2187 Sep, [facility] [id number] [place] [address] 00983- 1135 Sep, Chest congestion R09.89 [facility] [id number] [place] [address] 77692- 1896 Sep, [facility] [id number] [place] [address] 80886- 5520 Sep, Chest congestion R09.89 [facility] [id number] [place] [address] 15424- 4216 Aug, [facility] [id number] [place] [address] 11062- 5833 Jul, [facility] [address] [place] [address] 66964- 2829 Jul, 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 [id number] [place] [address] 71280 -6758 Jan, Rash R21 and Hordeolum externum of right lower eyelid H00.012 [facility] [address] [place] [address] 99189- 5603 Jan, [facility] [id number] [place] [address] 00546 -5944 Nov, Acute non-recurrent frontal sinusitis J01.10 [place] [address] 17792- 0657 Jul, [place] [address] 29122- 2803 Jul, [place] [address] 91507- 7552 Jul, Neuropathy of right foot G57.91 ; Tobacco abuse Z72.0 and Breast cancer, right C50.911 [place] [address] [id number] May, [facility] [address] [address] -[address]12 May, Seasonal allergic rhinitis, unspecified allergic rhinitis trigger J30.2 [facility] [address] 73[address] -0633 Apr, Acute bacterial conjunctivitis of right eye H10.[address] 17717- 2216 Mar, Malignant neoplasm of right female breast, unspecified site of breast C50.911 ; Acute nasopharyngitis J00 and Bipolar 1 disorder, depressed F31.9 [facility] [address] 59027 -4852 Mar, Subacute frontal sinusitis J01.10 and Cough R05 [facility] [address] 06144 -1285 14 Mar, 2016 Acute non-recurrent maxillary sinusitis J01.00 [facility] [address] 55081 -4939 10 Mar, 2016 Seasonal allergic rhinitis, unspecified allergic rhinitis trigger J30.[address] 24590- 1439 Mar, [facility] [address] [place] [address] 46721- 3434 Feb, Bipolar disorder, unspecified F31.9 [facility] [id number] [place] [address] 24013- 6275 Feb, [facility] [address] [id number] [id number] Jan, [facility] [address] [id number] [place] [id number] Oct, [facility] [address] [id number] [place] [id number] Oct, [facility] [address] [id number] [place] [id number] Feb, [facility] [address] [id number] [place] [id number] Feb, Bipolar 1 disorder F31.9 ; COPD (chronic obstructive pulmonary disease) J44.9 ; Breast cancer, right C50.911 ; Tachycardia R00.0 and Benign essential hypertension I10 [place] [id number] [place] [address] 83001- 4401 Jan, Sebaceous cyst L72.3 [place] [id number] [place] [address] 98766- 7889 Jan, [facility] [id number] [place] [address] 36623- 1921 Jan, Malignant neoplasm of right female breast, unspecified site of breast C50.911 [place] [id number] [place] [address] 00284- 0517 Jan, [facility] [id number] [place] [address] 93415- 0795 Jan, [facility] [id number] [place] [address] 05115- 3089 Jan, Sebaceous cyst L72.3 [place] [id number] [place] [address] 23530- 8523 Dec, [place] [id number] [place] [address] 06405- 2681 Dec, Abnormal mammogram R92.8 and Breast mass N63 [place] [address] 61411- 1136 Dec, Breast pain, right N64.4 [place] [id number] [place] [address] 34767- 6778 Dec, COPD (chronic obstructive pulmonary disease) J44.9 ; Weight gain R63.5 and Encounter for weight loss counseling Z71.3 [place] [id number] [place] [address] 51473- 3114 Dec, [place] [id number] [place] [address] 94910- 0197 Nov, Sebaceous cyst L72.3 [place] [id number] [place] [address] 58464- 4221 Oct, Skin lesion of right arm 709.9 and Localized swelling, mass , and lump of head 784.2 [place] [id number] [place] [address] 25056- 4944 Oct, [place] [id number] [place] [address] 66020- 0104 Oct, [place] [id number] [place] [address] 21856- 4638 18 Oct, 2014 Routine adult health maintenance V70.0 and Fatigue 780.79 [place] [id number] [place] [address] 60592- 6979 16 Oct, 2014 Routine adult health maintenance V70.0 ; COPD (chronic obstructive pulmonary disease) 496 ; Arthritis of both hips 716.95 ; Fatigue 780.79 and Localized swelling, mass, and lump of head 784.2 [facility] [address] [facility] [id number] [place] [id number] Oct, [facility] [address] [facility] [id number] [place] [address] Sep, COPD (chronic obstructive pulmonary disease) 496 and Bipolar disorder 296.80 IMMUNIZATIONS No Known Immunizations SOCIAL HISTORY Never Assessed REASON FOR VISIT PLAN OF CARE VITAL SIGNS MEDICATIONS Medication Instructions Dosage Frequency Start Date End Date Duration Status Ipratropium-Albuterol 0.5-2.5 (3) MG/3ML Inhalation every 6 hrs 3 ml 6h Sep, Active RESULTS No Results PROCEDURES No Known [...] History surgeries Hospitalization History Fever of unknown origin-[facility] 05/24/16
--- OUTSIDE RECORDS SUMMARY | 2018-03-18 21:26 | XMS REPORT ---
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 Active 77136174 Problem Malignant neoplasm of unspecified site of right female breast C50.911 Active 044582660 Problem COPD (chronic obstructive pulmonary disease) J44.9 Active 67942947 Problem Moderate episode of recurrent major depressive disorder F33.1 Active 187487302 Problem Neuropathy of right foot G57.91 Active 862368400 Problem Malignant neoplasm of right female breast, unspecified site of breast C50.911 Active 929717635 Problem Bipolar 1 disorder, depressed F31.9 Active 08372343 Problem Tobacco abuse Z72.0 Active 602696840 Problem Seasonal allergic rhinitis, unspecified allergic rhinitis trigger J30.2 Active 527243044 ALLERGIES No Information ENCOUNTERS Encounter Location Date Diagnosis [place] [address] [place] [address] 54667- 6431 28 Dec, 2017 [facility] [place] [address] [place] [address] 36066- 9537 Dec, [facility] [place] [id number] [place] [address] 35197- 2770 13 Dec, 2017 Malignant neoplasm of unspecified site of right female breast C50.911 [facility] [place] [address] [place] [address] 46587- 1497 Nov, Malignant neoplasm of unspecified site of right female breast C50.911 ; 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 ; Moderate episode of recurrent major depressive disorder F33.1 and Encounter for immunization Z23 [facility] [place] [id number] [place] [address] 77442- 9091 Nov, [facility] [place] [id number] [place] [address] 85967- 5159 Nov, [facility] [place] [id number] [place] [address] 12601- 2776 Nov, [facility] [place] [id number] [place] [address] 36994- 4626 Nov, [facility] [place] [id number] [place] [address] 20259- 6943 Oct, COPD (chronic obstructive pulmonary disease) J44.9 ; 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 and Malignant neoplasm of unspecified site of right female breast C50.911 [facility] [place] [id number] [place] [address] 68855- 2216 Oct, [facility] [place] [id number] [place] [address] 38797- 1851 Oct, [facility] [place] [id number] [place] [address] 41296- 9719 Oct, [facility] [place] [id number] [place] [address] 86103- 2794 Sep, Pneumonia of left lower lobe due to infectious organism J18.1 [facility] [place] [id number] [place] [address] 88200- 3571 Sep, [facility] [place] [id number] [place] [address] 21971- 1663 Sep, [facility] [place] [id number] [place] [address] 74505- 1940 Sep, [facility] [place] [id number] [place] [address] 32057- 4994 Sep, [facility] [place] [address] [place]1823[place] [address]- 6367 Sep, [facility] [place] [id number] [place] [address] 36081- 9510 Sep, Chest congestion R09.89 [facility] [place] [id number] [place] [address] 36620- 7089 Sep, [facility] [place] [id number] [place] [address] 58012- 5928 Sep, Chest congestion R09.89 [facility] [place] [id number] [place] [address] 59493- 9927 Aug, [place] [id number] [place] [address] 79851- 9519 Jul, [facility] [place] [id number] [place] [address] 42210- 8214 Jul, 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 ; Malignant neoplasm of unspecified site of right female breast C50.911 ; Jaw pain R68.84 and Moderate episode of recurrent major depressive disorder F33.1 [facility] [id number] [place] [address] 34233 -6940 Jan, Rash R21 and Hordeolum externum of right lower eyelid H00.012 [facility] [place] [id number] [place] [address] 42151- 8865 Jan, [facility] [id number] [place] [address] 44021 -2630 Nov, Acute non-recurrent frontal sinusitis J01.10 [place] [id number] [place] [address] 85906- 6267 Jul, [place] [id number] [place] [address] 77273- 4082 Jul, [facility] [place] [id number] [place] [address] 76880- 5562 Jul, Neuropathy of right foot G57.91 ; Tobacco abuse Z72.0 and Breast cancer, right C50.911 [facility] [id number] [place] [address] [id number] May, [facility] [id number] [place] [address] 15579 -2019 May, Seasonal allergic rhinitis, unspecified allergic rhinitis trigger J30.2 [facility] [id number] [place] [address] 74833 -3517 Apr, Acute bacterial conjunctivitis of right eye H10.31 [facility] [place] [id number] [place] [address] 55208- 3893 22 Mar, 2016 Malignant neoplasm of right female breast, unspecified site of breast C50.911 ; Acute nasopharyngitis J00 and Bipolar 1 disorder, depressed F31.9 [facility] [id number] [place] [address] 27194 -7818 Mar, Subacute frontal sinusitis J01.10 and Cough R05 [facility] [id number] [place] [address] 66409 -7066 14 Mar, 2016 Acute non-recurrent maxillary sinusitis J01.00 [facility] [id number] [place] [address] 29875 -1018 10 Mar, 2016 Seasonal allergic rhinitis, unspecified allergic rhinitis trigger J30.2 [facility] [place] [id number] [place] [address] 46370- 4715 03 Mar, 2016 [facility] [place] [id number] [place] [address] 66984- 1849 Feb, Bipolar disorder, unspecified F31.9 [facility] [place] [id number] [place] [address] 72668- 6026 09 Feb, 2016 [facility] [address] [id number] [id number] Jan, [facility] [address] [id number][place] [id number] Oct, [facility] [address] [address] [id number][place] [id number] Oct, [facility] [address] [address] [id number][place] [id number] Feb, [facility] [address] [facility] [address] [id number][place] [id number] Feb, Bipolar 1 disorder F31.9 ; COPD (chronic obstructive pulmonary disease) J44.9 ; Breast cancer, right C50.911 ; Tachycardia R00.0 and Benign essential hypertension I10 [facility] [place] [id number] [place] [address] 49483- 1705 Jan, Sebaceous cyst L72.3 [facility] [place] [id number] [place] [address] 51224- 7245 Jan, [facility] [place] [address] 82691- 4834 Jan, Malignant neoplasm of right female breast, unspecified site of breast C50.911 [facility] [place] [id number] [place] [address] 53875- 8566 Jan, [facility] [place] [id number] [place] [address] 90033- 8044 Jan, [facility] [place] [id number] [place] [address] 06923- 0293 Jan, Sebaceous cyst L72.3 [facility] [place] [id number] [place] [address] 73385- 3659 Dec, [facility] [place] [address] 38703- 0218 Dec, Abnormal mammogram R92.8 and Breast mass N63 [facility] [place] [id number] [place] [address] 98532- 3124 Dec, Breast pain, right N64.4 [facility] [place] [address] 65782- 5896 Dec, COPD (chronic obstructive pulmonary disease) J44.9 ; Weight gain R63.5 and Encounter for weight loss counseling Z71.3 [place] [id number] [place] [address] 20527- 7881 Dec, [place] [id number] [place] [address] 72668- 3816 Nov, Sebaceous cyst L72.3 [place] [id number] [place] [address] 04686- 3790 28 Oct, 2014 Skin lesion of right arm 709.9 and Localized swelling, mass , and lump of head 784.2 [place] [id number] [place] [address] 15721- 3959 Oct, [place] [id number] [place] [address] 16333- 6388 Oct, [place] [id number] [place] [address] 65245- 6174 Oct, Routine adult health maintenance V70.0 and Fatigue 780.79 [place] [id number] [place] [address] 44101- 7792 16 Oct, 2014 Routine adult health maintenance V70.0 ; COPD (chronic obstructive pulmonary disease) 496 ; Arthritis of both hips 716.95 ; Fatigue 780.79 and Localized swelling, mass, and lump of head 784.2 [place] [address] [place] [address] 06294- 7012 Oct, [place] [id number] [place] [address] 36843- 7122 Sep, COPD (chronic obstructive pulmonary disease) 496 and Bipolar disorder 296.80 IMMUNIZATIONS No Known Immunizations SOCIAL HISTORY Never Assessed REASON FOR VISIT Requests return call PLAN OF CARE VITAL SIGNS MEDICATIONS Unknown Medications RESULTS No Results PROCEDURES No Known procedures INSTRUCTIONS MEDICATIONS ADMINISTERED No Known Medications MEDICAL (GENERAL) HISTORY Type Description Date Medical History bipolar Medical History COPD- PFT 01/2015 Medical History breast cancer- Right - remission since 2014 Medical History Depakote level 01/2015- Medical History pneumonia Surgical History section 1993 Surgical History cholecystectomy Surgical History appendectomy 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
--- OUTSIDE RECORDS SUMMARY | 2018-03-18 21:26 | XMS REPORT ---
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 Active 38075421 Problem Malignant neoplasm of unspecified site of right female breast C50.911 Active 496818557 Problem COPD (chronic obstructive pulmonary disease) J44.9 Active 66606708 Problem Arthritis of both hips M12.9 Active 62374112 Problem Cancer related pain G89.3 Active 681946512 Problem Moderate episode of recurrent major depressive disorder F33.1 Active 850847328 Problem Seasonal allergic rhinitis, unspecified allergic rhinitis trigger J30.2 Active 120712337 Problem Malignant neoplasm of right female breast, unspecified site of breast C50.911 Active 699382424 Problem Neuropathy of right foot G57.91 Active 933601913 Problem Tobacco abuse Z72.0 Active 570226703 ALLERGIES Substance Reaction Event Type Date Status Lyrica Unknown Drug Allergy Dec, Active Haldol fever Drug Allergy Dec, Active Cipro diarrhea Drug Allergy Dec, Active zyprexa elevated blood sugar Non Drug Allergy Dec, Active ENCOUNTERS Encounter Location Date Diagnosis [facility] [address] [facility] [id number] [address] Dec, [facility] [address] [facility] [id number] [place] [address] Dec, COPD (chronic obstructive pulmonary disease) J44.9 ; Malignant neoplasm of unspecified site of right female breast C50.911 ; Tobacco abuse Z72.0 and Cancer related pain G89.3 [facility] [address] [place] [address] 15087- 5447 Dec, [facility] [id number] [place] [address] 66390- 5027 Dec, Malignant neoplasm of unspecified site of right female breast C50.911 [facility] [id number] [place] [address] 90373- 8436 Nov, Malignant neoplasm of unspecified site of right female breast C50.911 ; 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 ; Moderate episode of recurrent major depressive disorder F33.1 and Encounter for immunization Z23 [facility] [id number] [place] [address] 12635- 4191 Nov, [facility] [id number] [place] [address] 62168- 9037 Nov, [facility] [id number] [place] [address] 12234- 8419 Nov, [facility] [id number] [place] [address] 60065- 5635 Nov, [facility] [id number] [place] [address] 00115- 0523 Oct, COPD (chronic obstructive pulmonary disease) J44.9 ; 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 and Malignant neoplasm of unspecified site of right female breast C50.911 [facility] [address] [place] [address] 18699- 4187 Oct, [facility] [address] [place] [address] 29113- 4464 Oct, [facility] [id number] [place] [address] 04871- 7587 Oct, [facility] [address] [place] [address] 40839- 6034 Sep, Pneumonia of left lower lobe due to infectious organism J18.1 [facility] [address] [address] 1117 Sep, [facility] [id number] [place] [address] 73795- 6594 Sep, [facility] [address] [place] [address] 27641- 8483 Sep, [facility] [id number] [place] [address] 68910- 0215 Sep, [facility] [id number] [place] [address] 30071- 1406 Sep, [facility] [id number] [place] [address] 02016- 5407 Sep, Chest congestion R09.89 [facility] [address] [place] [address] 09939- 8345 Sep, [facility] [id number] [place] [address] 71339- 9746 Sep, Chest congestion R09.89 [facility] [id number] [place] [address] 11046- 1187 Aug, [facility] [address] [place] [address] 37998- 8278 Jul, [facility] [address] [place] [address] 10549- 9030 Jul, 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 ; Malignant neoplasm of unspecified site of right female breast C50.911 ; Jaw pain R68.84 and Moderate episode of recurrent major depressive disorder F33.1 [facility] [id number] [place] [address] 51151 -7144 Jan, Rash R21 and Hordeolum externum of right lower eyelid H00.012 [facility] [address] [address] 9099 Jan, [facility] [id number] [place] [address] 05581 -3030 Nov, Acute non-recurrent frontal sinusitis J01.10 [place] [address] 34406- 9419 23 Jul, 2016 [place] [address] 33864- 8011 Jul, [place] [address] 78257- 8425 Jul, Neuropathy of right foot G57.91 ; Tobacco abuse Z72.0 and Breast cancer, right C50.911 [place] [address] [id number] May, [facility] [address] 79169 -8806 May, Seasonal allergic rhinitis, unspecified allergic rhinitis trigger J30.2 [facility] [address] 58564 -8855 Apr, Acute bacterial conjunctivitis of right eye H10.[address] 75422- 6148 Mar, Malignant neoplasm of right female breast, unspecified site of breast C50.911 ; Acute nasopharyngitis J00 and Bipolar 1 disorder, depressed F31.9 [facility] [address] 38595 -7489 Mar, Subacute frontal sinusitis J01.10 and Cough R05 [facility] [address] 94224 -9075 14 Mar, 2016 Acute non-recurrent maxillary sinusitis J01.00 [facility] [address] 21484 -0859 10 Mar, 2016 Seasonal allergic rhinitis, unspecified allergic rhinitis trigger J30.[address] 58508- 2879 Mar, [facility] [address] [address] 4713 Feb, Bipolar disorder, unspecified F31.9 [facility] [address] [address]35 Feb, [facility] [address] [id number] [place] [id number] Jan, [facility] [address] [id number] [place] [id number] Oct, [facility] [address] [id number] [place] [id number] Oct, [facility] [address] [id number] [place] [id number] Feb, [facility] [address] [id number] [place] [id number] Feb, Bipolar 1 disorder F31.9 ; COPD (chronic obstructive pulmonary disease) J44.9 ; Breast cancer, right C50.911 ; Tachycardia R00.0 and Benign essential hypertension I10 [facility] [address] [place] [address] 92994- 5318 Jan, Sebaceous cyst L72.3 [facility] [address] [id number] [address] 4795 Jan, [facility] [id number] [place] [address] 89126- 7107 Jan, Malignant neoplasm of right female breast, unspecified site of breast C50.911 [facility] [id number] [place] [address] 39249- 2742 Jan, [facility] [address] [place] [address] 65380- 0086 Jan, [facility] [address] [place] [address] 88819- 4939 Jan, Sebaceous cyst L72.3 [place] [id number] [place] [address] 67790- 0378 Dec, [place] [address] [address] [id number] [place] [address] 94095- 9689 Dec, Abnormal mammogram R92.8 and Breast mass N63 [place] [id number] [place] [address] 68348- 6724 Dec, Breast pain, right N64.4 [place] [address] [address] [id number] [place] [address] 43257- 9164 Dec, COPD (chronic obstructive pulmonary disease) J44.9 ; Weight gain R63.5 and Encounter for weight loss counseling Z71.3 [place] [id number] [place] [address] 42274- 1850 Dec, [place] [id number] [place] [address] 84319- 4375 Nov, Sebaceous cyst L72.3 [place] [id number] [place] [address] 31311- 9974 28 Oct, 2014 Skin lesion of right arm 709.9 and Localized swelling, mass , and lump of head 784.2 [place] [address] [place] [address] 65431- 1225 24 Oct, 2014 [place] [id number] [place] [address] 51254- 5443 Oct, [place] [address] [address] [id number] [place] [address] 69287- 0132 18 Oct, 2014 Routine adult health maintenance V70.0 and Fatigue 780.79 [place] [id number] [place] [address] 40273- 7471 16 Oct, 2014 Routine adult health maintenance V70.0 ; COPD (chronic obstructive pulmonary disease) 496 ; Arthritis of both hips 716.95 ; Fatigue 780.79 and Localized swelling, mass, and lump of head 784.2 [place] [address] [facility] [id number] [place] [address] 0834 Oct, [facility] [address] [facility] [id number] [place] [address]- 5954 Sep, COPD (chronic obstructive pulmonary disease) 496 and Bipolar disorder 296.80 IMMUNIZATIONS No Known Immunizations SOCIAL HISTORY Never Assessed REASON FOR VISIT Oncology f/u, pt states she wants to quit smoking, wants to talk about her COPD , would like to talk about meds. [place] SAUCEDO PLAN OF CARE Activity Details Follow Up 2 Months with Bry long pain Reason: VITAL SIGNS Height 65.5 in 2018-01-04 Weight 154.8 lbs 2018-01-04 Temperature 98.1 degrees Fahrenheit 2018-01-04 Heart Rate 90 bpm 2018-01-04 Respiratory Rate 20 2018-01-04 Oximetry 99 % 2018-01-04 BMI 25.37 kg/m2 2018-01-04 Blood pressure systolic 130 mmHg 2018-01-04 Blood pressure diastolic 90 mmHg 2018-01-04 MEDICATIONS Medication Instructions Dosage Frequency Start Date End Date Duration Status Gabapentin 300 MG Orally Three times a day 1 capsule once daily x 2 days, 1 capsule twice daily x 2 days then one capsule three times daily 8h Nov, Active Percocet 7.5-325 MG Orally 2 times a day 1 tablet as needed 12h Dec, 28 days Active Omeprazole 20 mg Orally Once a day 1 capsule 24h Active Ipratropium-Albuterol 0.5-2.5 (3) MG/3ML Inhalation every 6 hrs 3 ml 6h Sep, Active Ibuprofen 600 MG Orally Three times a day 1 tablet with food or milk as needed 8h Nov, 30 days Active Vistaril 25 MG Orally every 8 hrs 1 capsule as needed 8h Nov, Active RESULTS No Results PROCEDURES Procedure Date Ordered Result Body Site [facility] VISIT ESTABLISHED PATIENT Jan 04, 2018 INSTRUCTIONS MEDICATIONS ADMINISTERED No Known Medications MEDICAL (GENERAL) HISTORY Type Description Date Medical History bipolar Medical History COPD- PFT 01/2015 Medical History breast cancer- Right - remission since 2014 Medical History Depakote level 01/2015- Medical History pneumonia Surgical History section 1993 Surgical History cholecystectomy Surgical History appendectomy 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
--- OUTSIDE RECORDS SUMMARY | 2018-03-18 21:26 | XMS REPORT ---
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 Active 16133443 Problem Malignant neoplasm of unspecified site of right female breast C50.911 Active 693162651 Problem COPD (chronic obstructive pulmonary disease) J44.9 Active 51729157 Problem Arthritis of both hips M12.9 Active 67177861 Problem Cancer related pain G89.3 Active 843564626 Problem Moderate episode of recurrent major depressive disorder F33.1 Active 310849723 Problem Seasonal allergic rhinitis, unspecified allergic rhinitis trigger J30.2 Active 239559021 Problem Malignant neoplasm of right female breast, unspecified site of breast C50.911 Active 980811483 Problem Neuropathy of right foot G57.91 Active 739820295 Problem Tobacco abuse Z72.0 Active 971745432 ALLERGIES No Information ENCOUNTERS Encounter Location Date Diagnosis [facility] [address] [id number] [address] Dec, COPD (chronic obstructive pulmonary disease) J44.9 [facility] [address] [facility] [id number] [address] 8[address] Dec, COPD (chronic obstructive pulmonary disease) J44.9 [facility] [id number] [address] 7418 Dec, COPD (chronic obstructive pulmonary disease) J44.9 ; Malignant neoplasm of unspecified site of right female breast C50.911 ; Tobacco abuse Z72.0 and Cancer related pain G89.3 [facility] [address] [place] [id number] [place] [address] 38584- 9655 Dec, [facility] [address] [place] [id number] [place] [address] 33509- 7051 Dec, Malignant neoplasm of unspecified site of right female breast C50.911 [place] [address] [place] [id number] [place] [address] 52814- 3075 Nov, Malignant neoplasm of unspecified site of right female breast C50.911 ; 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 ; Moderate episode of recurrent major depressive disorder F33.1 and Encounter for immunization Z23 [place] [address] [place] [id number] [place] [address] 48580- 4022 Nov, [place] [address] [place] [id number] [place] [address] 19058- 7781 Nov, [place] [address] [place] [id number] [place] [address] 12447- 4928 Nov, [facility] [address] [place] [id number] [place] [address] 65326- 0965 Nov, [place] [address] [place] [id number] [place] [address] 97095- 9421 Oct, COPD (chronic obstructive pulmonary disease) J44.9 ; 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 and Malignant neoplasm of unspecified site of right female breast C50.911 [facility] [address] [place] [address] 62757- 5416 Oct, [facility] [address] [place] [id number] [place] [address] 05029- 3067 Oct, [facility] [address] [place] [id number] [place] [address] 38489- 3665 Oct, [facility] [address] [place] [address] 01150- 0426 Sep, Pneumonia of left lower lobe due to infectious organism J18.1 [facility] [address] [address]- 8779 Sep, [facility] [id number] [place] [address] 50510- 9905 Sep, [facility] [id number] [place] [address] 18572- 5219 Sep, [facility] [id number] [place] [address] 18612- 0573 Sep, [facility] [address] [id number] [place] [address] 19108- 0999 Sep, [facility] [address] [place] [id number] [place] [address] 62086- 8854 Sep, Chest congestion R09.89 [facility] [address] [place] [id number] [place] [address] 21699- 7682 Sep, [facility] [id number] [place] [address] 11453- 9249 Sep, Chest congestion R09.89 [facility] [address] [place] [id number] [place] [address] 32388- 8042 Aug, [facility] [id number] [place] [address] 22096- 3842 Jul, [facility] [address] [place] [address] 58239- 9108 Jul, 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 ; Malignant neoplasm of unspecified site of right female breast C50.911 ; Jaw pain R68.84 and Moderate episode of recurrent major depressive disorder F33.1 [facility] [id number] [place] [address] 58875 -3152 Jan, Rash R21 and Hordeolum externum of right lower eyelid H00.012 [facility] [address] [place] [address] 87179- 3629 Jan, [facility] [id number] [place] [address] 41440 -9323 Nov, Acute non-recurrent frontal sinusitis J01.10 [place] [address] 22053- 4110 Jul, [place] [address] 33711- 0931 Jul, [place] [address] 94615- 2813 Jul, Neuropathy of right foot G57.91 ; Tobacco abuse Z72.0 and Breast cancer, right C50.911 [place] [address] [id number] May, [facility] WALK IN [address] 36155 -2895 May, Seasonal allergic rhinitis, unspecified allergic rhinitis trigger J30.2 [facility] [address] 32777 -9737 Apr, Acute bacterial conjunctivitis of right eye H10.[address] 46897- 5771 Mar, Malignant neoplasm of right female breast, unspecified site of breast C50.911 ; Acute nasopharyngitis J00 and Bipolar 1 disorder, depressed F31.9 [facility] IN [address] 64832 -2398 Mar, Subacute frontal sinusitis J01.10 and Cough R05 [facility] [address] 50228 -3068 14 Mar, 2016 Acute non-recurrent maxillary sinusitis J01.00 [facility] [address] 78689 -8070 10 Mar, 2016 Seasonal allergic rhinitis, unspecified allergic rhinitis trigger J30.[address] 42681- 6040 Mar, [facility] [address] [place] [address] 28269- 8744 Feb, Bipolar disorder, unspecified F31.9 [facility] [address] [id number] [place] [address] 52382- 8277 Feb, [facility] [address] [id number] [id number] Jan, [facility] [address] [id number] [place] [id number] Oct, [facility] [address] [id number] [place] [id number] Oct, [facility] [address] [id number] [place] [id number] Feb, [facility] [address] [id number] [place] [id number] Feb, Bipolar 1 disorder F31.9 ; COPD (chronic obstructive pulmonary disease) J44.9 ; Breast cancer, right C50.911 ; Tachycardia R00.0 and Benign essential hypertension I10 [place] [address] [place] [id number] [place] [address] 35476- 9740 Jan, Sebaceous cyst L72.3 [place] [address] [place] [id number] [place] [address] 94263- 4106 Jan, [facility] [id number] [place] [address] 99018- 6080 Jan, Malignant neoplasm of right female breast, unspecified site of breast C50.911 [place] [address] [place] [id number] [place] [address] 58335- 8490 Jan, [facility] [address] [id number] [place] [address] 22718- 9530 Jan, [facility] [address] [id number] [place] [address] 46106- 9075 Jan, Sebaceous cyst L72.3 [place] [address] [place] [id number] [place] [address] 46866- 3131 Dec, [place] [address] [place] [id number] [place] [address] 64856- 5156 Dec, Abnormal mammogram R92.8 and Breast mass N63 [place] [address] 44651- 5457 Dec, Breast pain, right N64.4 [place] [address] [place] [id number] [place] [address] 64903- 2723 Dec, COPD (chronic obstructive pulmonary disease) J44.9 ; Weight gain R63.5 and Encounter for weight loss counseling Z71.3 [place] [address] [place] [id number] [place] [address] 85541- 9711 Dec, [place] [address] [place] [id number] [place] [address] 54633- 0734 Nov, Sebaceous cyst L72.3 [place] [address] [place] [id number] [place] [address] 80365- 7100 Oct, Skin lesion of right arm 709.9 and Localized swelling, mass , and lump of head 784.2 [place] [address] [place] [id number] [place] [address] 50188- 8482 Oct, [place] [address] [place] [id number] [place] [address] 53672- 2651 Oct, [place] [address] [place] [id number] [place] [address] 38788- 5206 18 Oct, 2014 Routine adult health maintenance V70.0 and Fatigue 780.79 [place] [address] [place] [id number] [place] [address] 01834- 4261 16 Oct, 2014 Routine adult health maintenance V70.0 ; COPD (chronic obstructive pulmonary disease) 496 ; Arthritis of both hips 716.95 ; Fatigue 780.79 and Localized swelling, mass, and lump of head 784.2 [facility] [address] [facility] [id number] [place] [address] Oct, [facility] [address] [facility] [id number] 2164 Sep, COPD (chronic obstructive pulmonary disease) 496 and Bipolar disorder 296.80 IMMUNIZATIONS No Known Immunizations SOCIAL HISTORY Never Assessed REASON FOR VISIT Refill request PLAN OF CARE VITAL SIGNS MEDICATIONS Medication Instructions Dosage Frequency Start Date End Date Duration Status Ibuprofen 600 MG Orally Three times a day 1 tablet with food or milk as needed 8h Nov, 30 days Active Omeprazole 20 mg Orally Once a day 1 capsule 24h Active ProAir HFA 108 (90 base) mcg/act Inhalation 4 times a day 2 puffs as needed 6h Sep, Active Ipratropium-Albuterol 0.5-2.5 (3) MG/3ML Inhalation every 6 hrs 3 ml 6h Sep, Active Vistaril 25 MG Orally every 8 hrs 1 capsule as needed 8h Nov, Active Percocet 7.5-325 MG Orally 2 times a day 1 tablet as needed 12h Dec, 28 days Active Gabapentin 300 mg Orally Three times a day 1 capsule 8h Nov, Active RESULTS No Results PROCEDURES No Known [...] History surgeries Hospitalization History Fever of unknown origin-[facility] 05/24/16
--- OUTSIDE RECORDS SUMMARY | 2018-03-18 21:27 | XMS REPORT ---
Author Author ABAD MURRAY [facility] Address [address] [place] [address] Care Team Providers Care Supervisor [employer] Name Role Phone ABAD MURRAY Unavailable PROBLEMS Type Condition ICD9-CM Code [id number] Code Onset Dates Condition Status SNOMED Code Problem Arthritis of both hips M12.9 Active 65340981 Problem Bipolar disorder, unspecified F31.9 Active 34711214 Problem Benign essential hypertension I10 Active 1854446 Problem 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 Active 40249804 Problem Malignant neoplasm of unspecified site of right female breast C50.911 Active 057015357 Problem COPD (chronic obstructive pulmonary disease) J44.9 Active 55096643 Problem Moderate episode of recurrent major depressive disorder F33.1 Active 506478740 Problem Neuropathy of right foot G57.91 Active 167801262 Problem Malignant neoplasm of right female breast, unspecified site of breast C50.911 Active 163005501 Problem Bipolar 1 disorder, depressed F31.9 Active 76902610 Problem Tobacco abuse Z72.0 Active 075601352 Problem Seasonal allergic rhinitis, unspecified allergic rhinitis trigger J30.2 Active 707301117 ALLERGIES Substance Reaction Event Type Date Status Lyrica Unknown Drug Allergy Nov, Active Haldol fever Drug Allergy Nov, Active Gabapentin Unknown Drug Allergy Nov, Active Cipro diarrhea Drug Allergy Nov, Active ENCOUNTERS Encounter Location Date Diagnosis [facility] [address] [facility] [id number] [address] Dec, [facility] [address] [id number] [address] Nov, Malignant neoplasm of unspecified site of right female breast C50.911 ; 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 ; Moderate episode of recurrent major depressive disorder F33.1 and Encounter for immunization Z23 [facility] [address], [place] [address] Nov, [facility] [address], [place] [address] Nov, [facility] [address], [place] [address] Nov, [facility] [id number] [place] [address] 42335- 9420 Nov, [facility] [address] [place] [id number] [place] [address] 97288- 4405 Oct, COPD (chronic obstructive pulmonary disease) J44.9 and 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 [facility] [address] [place] [address] 55184- 7859 Oct, [facility] [address] [place] [address] 71110- 6537 Oct, [facility] [address], [place] [address] Oct, [facility] [address] [place] [address] 23361- 6324 Sep, Pneumonia of left lower lobe due to infectious organism J18.1 [facility] [address], [place] [address] Sep, [facility] [address], [place] [address] Sep, [facility] [address], [place] [address] Sep, [facility] [address] [place] [address] 55444- 0739 Sep, [facility] [address], [place] [address] Sep, [facility] [address], [place] [address] Sep, Chest congestion R09.89 [facility] [address] [place] [id number] [place] [address] 88481- 2906 Sep, [place] [address] [address] Sep, Chest congestion R09.89 [place] [address] 43092- 4865 Aug, [place] [address] 58902- 8805 Jul, [place] [address] 13499- 0498 Jul, 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 ; Malignant neoplasm of unspecified site of right female breast C50.911 ; Jaw pain R68.84 and Moderate episode of recurrent major depressive disorder F33.1 [facility] [address] [address] Jan, Rash R21 and Hordeolum externum of right lower eyelid H00.012 [place] [address] 65965- 6622 Jan, [facility] [place] [address] [place] [id number] [place] [address] 05783 -7436 Nov, Acute non-recurrent frontal sinusitis J01.10 [place] [address] 60130- 8745 Jul, [place] [address] [place] [id number] [place] [address] 66174- 8490 Jul, [place] [address] 50887- 3572 Jul, Neuropathy of right foot G57.91 ; Tobacco abuse Z72.0 and Breast cancer, right C50.911 [facility] [address] [id number] May, [facility] [address], [place] [address] May, Seasonal allergic rhinitis, unspecified allergic rhinitis trigger J30.2 [facility] [address] [place] [id number] [place] [address] 14465 -4068 Apr, Acute bacterial conjunctivitis of right eye H10.[address] 14676- 8186 22 Mar, 2016 Malignant neoplasm of right female breast, unspecified site of breast C50.911 ; Acute nasopharyngitis J00 and Bipolar 1 disorder, depressed F31.9 [facility] [address] [place] [id number] [place] [address] 62608 -2952 21 Mar, 2016 Subacute frontal sinusitis J01.10 and Cough R05 [facility] [place] [id number] [place] [address] 39522 -8442 14 Mar, 2016 Acute non-recurrent maxillary sinusitis J01.00 [facility] [address] [place] [id number] [place] [address] 94828 -7510 10 Mar, 2016 Seasonal allergic rhinitis, unspecified allergic rhinitis trigger J30.2 [place] [address] [place] [id number] [place] [address] 10029- 0458 03 Mar, 2016 [place] [address] [place] [id number] [place] [address] 57088- 6579 Feb, Bipolar disorder, unspecified F31.9 [place] [address] [place] [id number] [place] [address] 63171- 9534 09 Feb, [address] [facility] [address] [id number] [id number] Jan, [facility] [address] [id number] [id number] Oct, [facility] [address] [id number] [id number] Oct, [facility] [address] [id number] [id number] Feb, [facility] [address] [id number] [id number] Feb, Bipolar 1 disorder F31.9 ; COPD (chronic obstructive pulmonary disease) J44.9 ; Breast cancer, right C50.911 ; Tachycardia R00.0 and Benign essential hypertension I10 [place] [address] 9[address]39- 6312 Jan, Sebaceous cyst L72.3 [place] [address] [place] [id number] [place] [address] 27577- 2722 Jan, [place] [address] 724352- 5817 Jan, Malignant neoplasm of right female breast, unspecified site of breast C50.911 [place] [address] [place] [id number] [place] [address] 55337- 6311 Jan, [place] [address] [place] [id number] [place] [address] 09465- 1951 Jan, [place] [address] [place] [id number] [place] [address] 02634- 0774 Jan, Sebaceous cyst L72.3 [place] [address] [place] [id number] [place] [address] 91626- 1612 Dec, [place] [address] [place] [id number] [place] [address] 60228- 0348 Dec, Abnormal mammogram R92.8 and Breast mass N63 [place] [address] [place] [id number] [place] [address] 94320- 0835 Dec, Breast pain, right N64.4 [place] [address] [place] [id number] [place] [address] 51128- 1234 Dec, COPD (chronic obstructive pulmonary disease) J44.9 ; Weight gain R63.5 and Encounter for weight loss counseling Z71.3 [place] [address], [place] [address] Dec, [place] [address] [place] [id number] [place] [address] 33594- 0960 Nov, Sebaceous cyst L72.3 [place] [address] [place] [id number] [place] [address] 75205- 6347 Oct, Skin lesion of right arm 709.9 and Localized swelling, mass , and lump of head 784.2 [place] [address] [place] [id number] [place] [address] 97986- 6101 Oct, [place] [address] [place] [id number] [place] [address] 04822- 2622 Oct, [place] [address] [place] [id number] [place] [address] 02425- 5498 Oct, Routine adult health maintenance V70.0 and Fatigue 780.[address] [place] [id number] [place] [address] 57223- 7002 16 Oct, 2014 Routine adult health maintenance V70.0 ; COPD (chronic obstructive pulmonary disease) 496 ; Arthritis of both hips 716.95 ; Fatigue 780.79 and Localized swelling, mass, and lump of head 784.2 [place] [address] [place] [address] 46255- 7632 Oct, [place] [id number] [place] [address] 53914- 3019 Sep, COPD (chronic obstructive pulmonary disease) 496 and Bipolar disorder 296.80 IMMUNIZATIONS Vaccine Route Administration Date Status PCV 13 IM Intramuscular Nov 29, 2017 Administered SOCIAL HISTORY Never Assessed REASON FOR VISIT Oncology f/u -- ney esparza, patient is requesting Tdap and pneumonia vaccine PLAN OF CARE Activity Details Follow Up 4 Weeks with Bry f.jack PET scan Reason: VITAL SIGNS Height 65.5 in 2017-11-29 Weight 151.0 lbs 2017-11-29 Temperature 98.7 degrees Fahrenheit 2017-11-29 Heart Rate 92 bpm 2017-11-29 Respiratory Rate 20 2017-11-29 BMI 24.74 kg/m2 2017-11-29 Blood pressure systolic 166 mmHg 2017-11-29 Blood pressure diastolic 86 mmHg 2017-11-29 MEDICATIONS Medication Instructions Dosage Frequency Start Date End Date Duration Status Gabapentin 300 MG Orally Three times a day 1 capsule once daily x 2 days, 1 capsule twice daily x 2 days then one capsule three times daily 8h Nov, Active Percocet 5-325 MG Orally 2 times a day 1 tablet as needed 12h 23 Nov, 2017 Dec, 28 days Active Omeprazole 20 mg Orally Once a day 1 capsule 24h Active Ipratropium-Albuterol 0.5-2.5 (3) MG/3ML Inhalation every 6 hrs 3 ml 6h Sep, Active Vistaril 25 MG Orally every 8 hrs 1 capsule as needed 8h Nov, Active Ibuprofen 600 MG Orally Three times a day 1 tablet with food or milk as needed 8h Nov, 30 days Active RESULTS No Results PROCEDURES Procedure Date Ordered Result Body Site PCV 13 Nov 29, 2017 SINGLE IMMUNIZATION ADMIN Nov 29, 2017 [facility] VISIT ESTABLISHED PATIENT Nov 29, 2017 INSTRUCTIONS MEDICATIONS ADMINISTERED No Known Medications MEDICAL [...]
--- OUTSIDE RECORDS SUMMARY | 2018-03-18 21:27 | XMS REPORT ---
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 Active 86573312 Problem Malignant neoplasm of unspecified site of right female breast C50.911 Active 006895118 Problem COPD (chronic obstructive pulmonary disease) J44.9 Active 94964724 Problem Moderate episode of recurrent major depressive disorder F33.1 Active 595228266 Problem Neuropathy of right foot G57.91 Active 414576475 Problem Malignant neoplasm of right female breast, unspecified site of breast C50.911 Active 851958808 Problem Bipolar 1 disorder, depressed F31.9 Active 78014535 Problem Tobacco abuse Z72.0 Active 800332034 Problem Seasonal allergic rhinitis, unspecified allergic rhinitis trigger J30.2 Active 015328576 ALLERGIES No Information ENCOUNTERS Encounter Location Date Diagnosis [place] [id number] [place] [address] 51913- 9233 Dec, [facility] [address] [place] [address] 49517- 0313 Dec, Malignant neoplasm of unspecified site of right female breast C50.911 [place] [address] [place] [address] 94433- 6026 Nov, Malignant neoplasm of unspecified site of right female breast C50.911 ; 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 ; Moderate episode of recurrent major depressive disorder F33.1 and Encounter for immunization Z23 [place] [address] [id number], [place] [address] Nov, [facility] [address], [place] [address] 8929 Nov, [facility] [address] [place] [address]- 5953 Nov, [facility] [address], [place] [address]- 3752 Nov, [facility] [address] [id number], [place] [address] 4489 Oct, COPD (chronic obstructive pulmonary disease) J44.9 ; 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 and Malignant neoplasm of unspecified site of right female breast C50.911 [facility] [address], [place] [address]- 2053 Oct, [facility] [address], [place] [address]- 7791 Oct, [facility] [address], [place] [address] Oct, [facility] [address], [place] [address]- 5614 Sep, Pneumonia of left lower lobe due to infectious organism J18.1 [facility] [address], [place] [address]- 7281 Sep, [facility] [address], [place] [address]- 4209 Sep, [facility] [address], [place] [address]- 9401 Sep, [facility] [address], [place] [address]- 5337 Sep, [facility] [address], [place] [address]- 8965 Sep, [facility] [address] [place] [id number] [place] [address] 37324- 0358 Sep, Chest congestion R09.89 [place] [address] 82427- 5272 Sep, [place] [address] 91680- 0038 Sep, Chest congestion R09.89 [place] [address] 23839- 3205 Aug, [place] [address] 12191- 8802 Jul, [place] [address] 18186- 5775 Jul, 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 ; Malignant neoplasm of unspecified site of right female breast C50.911 ; Jaw pain R68.84 and Moderate episode of recurrent major depressive disorder F33.1 [facility] [place] [address] 62516 -3729 Jan, Rash R21 and Hordeolum externum of right lower eyelid H00.012 [place] [address] 10242- 5644 Jan, [facility] [place] [address] 24796 -2647 Nov, Acute non-recurrent frontal sinusitis J01.10 [place] [address] [place] [id number] [place] [address] 47389- 6803 Jul, [place] [address] 38087- 2702 Jul, [place] [address] 71534- 3872 Jul, Neuropathy of right foot G57.91 ; Tobacco abuse Z72.0 and Breast cancer, right C50.911 [place] [address] [id number] May, [facility] N [place] [id number] [place] [address] 91437 -3948 May, Seasonal allergic rhinitis, unspecified allergic rhinitis trigger J30.2 [facility] N [place] [id number] [place] [address] 57053 -4517 Apr, Acute bacterial conjunctivitis of right eye H10.[address] 93488- 6548 Mar, Malignant neoplasm of right female breast, unspecified site of breast C50.911 ; Acute nasopharyngitis J00 and Bipolar 1 disorder, depressed F31.9 [facility] [place] [id number] [place] [address] 81173 -2122 Mar, Subacute frontal sinusitis J01.10 and Cough R05 [facility] [place] [id number] [place] [address] 78314 -4376 14 Mar, 2016 Acute non-recurrent maxillary sinusitis J01.00 [facility] [place] [id number] [place] [address] 93873 -9623 10 Mar, 2016 Seasonal allergic rhinitis, unspecified allergic rhinitis trigger J30.2 [place] [id number] [place] [address] 45059- 7888 03 Mar, 2016 [place] [id number] [place] [address] 53013- 5047 Feb, Bipolar disorder, unspecified F31.9 [place] [id number] [place] [address] 87605- 3566 09 Feb, [address] [facility] [address] [id number] [id number] Jan, [facility] [address] [id number] [id number] Oct, [facility] [address] [id number] [id number] Oct, [facility] [address] [facility] [address] [id number] [id number] Feb, [facility] [address] [facility] [address] [id number] [id number] Feb, Bipolar 1 disorder F31.9 ; COPD (chronic obstructive pulmonary disease) J44.9 ; Breast cancer, right C50.911 ; Tachycardia R00.0 and Benign essential hypertension I10 [place] [address] [place] [id number] [place] [address] 18896- 8224 Jan, Sebaceous cyst L72.3 [place] [address] 69571- 4004 Jan, [place] [address] [place] [id number] [place] [address] 73453- 1924 Jan, Malignant neoplasm of right female breast, unspecified site of breast C50.911 [place] [address] [place] [id number] [place] [address] 30243- 0543 Jan, [place] [address] [place] [id number] [place] [address] 03395- 8430 Jan, [place] [address] [place] [id number] [place] [address] 97257- 2863 Jan, Sebaceous cyst L72.3 [place] [address] [place] [id number] [place] [address] 64336- 1389 Dec, [place] [address] [place] [id number] [place] [address] 81779- 7412 Dec, Abnormal mammogram R92.8 and Breast mass N63 [place] [address] 96124- 7077 Dec, Breast pain, right N64.4 [place] [address] [place] [id number] [place] [address] 28900- 5991 Dec, COPD (chronic obstructive pulmonary disease) J44.9 ; Weight gain R63.5 and Encounter for weight loss counseling Z71.3 [place] [address], [place] [address]- 9654 Dec, [place] [address] [place] [address] 09421- 9097 Nov, Sebaceous cyst L72.3 [place] [address] [place] [id number] [place] [address] 41357- 5837 Oct, Skin lesion of right arm 709.9 and Localized swelling, mass , and lump of head 784.2 [place] [address] [place] [id number] [place] [address] 93561- 7950 Oct, [place] [address] [place] [id number] [place] [address] 03275- 3500 Oct, [place] [address] [place] [id number] [place] [address] 31450- 8979 Oct, Routine adult health maintenance V70.0 and Fatigue 780.79 [place] [address] [place] [address] 52513- 7490 16 Oct, 2014 Routine adult health maintenance V70.0 ; COPD (chronic obstructive pulmonary disease) 496 ; Arthritis of both hips 716.95 ; Fatigue 780.79 and Localized swelling, mass, and lump of head 784.2 [place] [address] [place] [address] 31074- 9494 Oct, [place] [address] [place] [address] 76945- 3891 Sep, COPD (chronic obstructive pulmonary disease) 496 and Bipolar disorder 296.80 IMMUNIZATIONS No Known Immunizations SOCIAL HISTORY Never Assessed REASON FOR VISIT controlled med PLAN OF CARE VITAL SIGNS MEDICATIONS Medication Instructions Dosage Frequency Start Date End Date Duration Status Percocet 7.5-325 MG Orally 2 times a day 1 tablet as needed 12h 14 Dec, 2017 28 days Active RESULTS No Results PROCEDURES [...] History surgeries Hospitalization History F[facility] of unknown origin-[facility] 05/24/16
--- OUTSIDE RECORDS SUMMARY | 2018-03-18 21:27 | XMS REPORT ---
Author Author ABAD MURRAY [facility] Address [address] [place] [address] Care Team Providers Care Huc Name Role Phone ABAD MURRAY Unavailable PROBLEMS Type Condition ICD9-CM Code BOR54-ID Code Onset Dates Condition Status SNOMED Code Problem Arthritis of both hips M12.9 Active 96842686 Problem Bipolar disorder, unspecified F31.9 Active 20612915 Problem Benign essential hypertension I10 Active 3082414 Problem 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 Active 80160223 Problem Malignant neoplasm of unspecified site of right female breast C50.911 Active 345538240 Problem COPD (chronic obstructive pulmonary disease) J44.9 Active 77189398 Problem Moderate episode of recurrent major depressive disorder F33.1 Active 558705997 Problem Neuropathy of right foot G57.91 Active 876925279 Problem Malignant neoplasm of right female breast, unspecified site of breast C50.911 Active 922951873 Problem Bipolar 1 disorder, depressed F31.9 Active 64367694 Problem Tobacco abuse Z72.0 Active 062727578 Problem Seasonal allergic rhinitis, unspecified allergic rhinitis trigger J30.2 Active 840153441 ALLERGIES No Information ENCOUNTERS Encounter Location Date Diagnosis [facility] [address] [address] Nov, [facility] [address] [place] [address]36- 7783 Nov, [facility] [address] [place] [id number] [place] [address] 62624- 0560 Nov, [facility] [address] [id number] [place] [address] 78458- 9460 Oct, COPD (chronic obstructive pulmonary disease) J44.9 and 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 [facility] [id number] [address] Oct, [facility] [address] [address] Oct, [facility] [address] [address] Oct, [facility] [address] [address] Sep, Pneumonia of left lower lobe due to infectious organism J18.1 [facility] [address] [address] 9[address] Sep, [facility] [id number] [place] [address] 17707- 5008 Sep, [facility] [address] [address] 16[address] Sep, [facility] [id number] [address] 04101- 0892 Sep, [facility] [address] [address] Sep, [facility] [address] [address] Sep, Chest congestion R09.89 [facility] [address] [address] Sep, [facility] [address] [address] 82[address] Sep, Chest congestion R09.89 [facility] [address] [address] Aug, [facility] [address] [address] [address] Jul, [facility] [address] [address] Jul, 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 ; Malignant neoplasm of unspecified site of right female breast C50.911 ; Jaw pain R68.84 and Moderate episode of recurrent major depressive disorder F33.1 [facility] [address] [address] Jan, Rash R21 and Hordeolum externum of right lower eyelid H00.[address] [address]- [address] Jan, [facility] [address] [address] Nov, Acute non-recurrent frontal sinusitis J01.[address] [address]- 3736 Jul, [address] [address]- [address]1 Jul, [address] [address]- 6867 Jul, Neuropathy of right foot G57.91 ; Tobacco abuse Z72.0 and Breast cancer, right C50.[address] [id number] May, [facility] [place] [address] [address] May, Seasonal allergic rhinitis, unspecified allergic rhinitis trigger J30.2 [facility] [place] [address] [address] Apr, Acute bacterial conjunctivitis of right eye H10.[address] [address]46- 68[address] Mar, Malignant neoplasm of right female breast, unspecified site of breast C50.911 ; Acute nasopharyngitis J00 and Bipolar 1 disorder, depressed F31.9 [facility] [place] [address] [address] Mar, Subacute frontal sinusitis J01.10 and Cough R05 [facility] [id number] [address]326 [address]6169 14 Mar, 2016 Acute non-recurrent maxillary sinusitis J01.00 [facility] [id number] [address] 75512 -5733 10 Mar, 2016 Seasonal allergic rhinitis, unspecified allergic rhinitis trigger J30.2 [facility] [id number] [address] 63770- 5638 03 Mar, 2016 [place] [id number] [place] [address] 80823- 8300 Feb, Bipolar disorder, unspecified F31.9 [place] [id number] [place] [address] 32608- 6372 Feb, [facility] [id number] [place] [address] [id number] Jan, [facility] [id number] [place] [address] [id number] Oct, [facility] [id number] [place] [address] [id number] Oct, [facility] [id number] [place] [address] [id number] Feb, [facility] [id number] [place] [address] [id number] Feb, Bipolar 1 disorder F31.9 ; COPD (chronic obstructive pulmonary disease) J44.9 ; Breast cancer, right C50.911 ; Tachycardia R00.0 and Benign essential hypertension I10 [place] [id number] [place] [address] 60627- 1113 16 Jan, 2015 Sebaceous cyst L72.3 [place] [id number] [place] [address] 51466- 1735 08 Jan, 2015 [place] [address] [id number] [address] 88351- 2529 Jan, Malignant neoplasm of right female breast, unspecified site of breast C50.911 [place] [id number] [place] [address] 55791- 9050 Jan, [facility] [id number] [place] [address] 94614- 9394 Jan, [place] [id number] [address] 75911- 6951 Jan, Sebaceous cyst L72.3 [place] [address] [id number] [place] [address] 01923- 1220 Dec, [place] [id number] [address] 98265- 0131 Dec, Abnormal mammogram R92.8 and Breast mass N63 [place] [address] [address]- 89[address] Dec, Breast pain, right N64.4 [place] [address] [id number] [place] [address] 26530- 5059 Dec, COPD (chronic obstructive pulmonary disease) J44.9 ; Weight gain R63.5 and Encounter for weight loss counseling Z71.3 [place] [address] [id number] [place] [address] 40458- 9569 Dec, [place] [id number] [address] 26061- 4727 Nov, Sebaceous cyst L72.3 [place] [id number] [place] [address] 63228- 2176 Oct, Skin lesion of right arm 709.9 and Localized swelling, mass , and lump of head 784.2 [place] [address] [place] [address] 24985- 4931 Oct, [place] [id number] [place] [address] 42881- 6435 Oct, [facility] [address] [facility] [id number] [address] 18 Oct, 2014 Routine adult health maintenance V70.0 and Fatigue 780.79 [facility] [id number] [address] 16 Oct, 2014 Routine adult health maintenance V70.0 ; COPD (chronic obstructive pulmonary disease) 496 ; Arthritis of both hips 716.95 ; Fatigue 780.79 and Localized swelling, mass, and lump of head 784.2 [facility] [id number] [address]- 9101 Oct, [facility] [id number] [address]- 8107 Sep, COPD (chronic obstructive pulmonary disease) 496 [...] History surgeries Hospitalization History Fever of unknown origin-[facility] 05/24/16
--- OUTSIDE RECORDS SUMMARY | 2018-03-18 21:27 | XMS REPORT ---
Author Author ABAD MURRAY Organization [facility] Address [address] [place] [address] Care Team Providers Care Insurance Business Analyst Name Role Phone ABAD MURRAY Unavailable PROBLEMS Type Condition ICD9-CM Code UXZ25-VZ Code Onset Dates Condition Status SNOMED Code Problem Arthritis of both hips M12.9 Active 36885141 Problem Bipolar disorder, unspecified F31.9 Active 93368829 Problem Benign essential hypertension I10 Active 2956906 Problem 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 Active 55546377 Problem Malignant neoplasm of unspecified site of right female breast C50.911 Active 379734918 Problem COPD (chronic obstructive pulmonary disease) J44.9 Active 41911215 Problem Moderate episode of recurrent major depressive disorder F33.1 Active 354237003 Problem Neuropathy of right foot G57.91 Active 879630528 Problem Malignant neoplasm of right female breast, unspecified site of breast C50.911 Active 271753336 Problem Bipolar 1 disorder, depressed F31.9 Active 15740812 Problem Tobacco abuse Z72.0 Active 801600704 Problem Seasonal allergic rhinitis, unspecified allergic rhinitis trigger J30.2 Active 046711047 ALLERGIES Substance Reaction Event Type Date Status Lyrica Unknown Drug Allergy Oct, Active Haldol fever Drug Allergy Oct, Active Gabapentin Unknown Drug Allergy Oct, Active Cipro diarrhea Drug Allergy Oct, Active ENCOUNTERS Encounter Location Date Diagnosis [facility] [address] 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 ; Moderate episode of recurrent major depressive disorder F33.1 and Encounter for immunization Z23 [facility] [address], [place] [address] 76[address] Nov, [facility] [address] [place] [address]- 2541 Nov, [facility] [address] [place] [address]- 7256 Nov, [facility] [address], [place] [address]- 2176 Nov, [facility] [address], [place] [address]- 3933 Oct, COPD (chronic obstructive pulmonary disease) J44.9 ; 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 and Malignant neoplasm of unspecified site of right female breast C50.911 [facility] [address], [place] [address]- 3981 Oct, [facility] [address], [place] [address]- 9054 Oct, [facility] [address], [place] [address]- 4650 Oct, [facility] [address], [place] [address]- 9639 Sep, Pneumonia of left lower lobe due to infectious organism J18.1 [facility] [address], [place] [address]- 5274 Sep, [facility] [address], [place] [address]- 6288 Sep, [facility] [id number] [place] [address]- 8361 Sep, [facility] [address], [place] [address]- 5124 Sep, [facility] [address] [place] [address]- 1081 Sep, [facility] [address] [address]69- 4090 Sep, Chest congestion R09.89 [place] [address] [address]13- 8309 Sep, [place] [address] 48876- 1063 Sep, Chest congestion R09.89 [place] [address] 96510- 8356 Aug, [place] [address] 57001- 6149 Jul, [place] [address] 52359- 2388 Jul, 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 ; Malignant neoplasm of unspecified site of right female breast C50.911 ; Jaw pain R68.84 and Moderate episode of recurrent major depressive disorder F33.1 [facility] [place] [address] [address]281 Jan, Rash R21 and Hordeolum externum of right lower eyelid H00.012 [place] [address] 85651- 5377 Jan, [facility] IN [place] [address] 41657 -2449 Nov, Acute non-recurrent frontal sinusitis J01.10 [place] [address] 89284- 7343 Jul, [place] [address] 00253- 3143 Jul, [place] [address] 04852- 0256 Jul, Neuropathy of right foot G57.91 ; Tobacco abuse Z72.0 and Breast cancer, right C50.911 [place] [address] [id number] May, [facility] [address] [place] [id number] [place] [address] 85846 -6621 May, Seasonal allergic rhinitis, unspecified allergic rhinitis trigger J30.2 [facility] [address] [place] [id number] [place] [address] 75722 -6525 Apr, Acute bacterial conjunctivitis of right eye H10.31 [place] [id number] [place] [address] 44796- 5202 Mar, Malignant neoplasm of right female breast, unspecified site of breast C50.911 ; Acute nasopharyngitis J00 and Bipolar 1 disorder, depressed F31.9 [facility] [place] [id number] [place] [address] 49046 -9563 Mar, Subacute frontal sinusitis J01.10 and Cough R05 [facility] [place] [id number] [place] [address] 08014 -4346 14 Mar, 2016 Acute non-recurrent maxillary sinusitis J01.00 [facility] [place] [id number] [place] [address] 06654 -0847 10 Mar, 2016 Seasonal allergic rhinitis, unspecified allergic rhinitis trigger J30.[address] [place] [address] 23552- 5468 03 Mar, 2016 [place] [address] [place] [address] [id number] [place] [address] 20242- 8350 Feb, Bipolar disorder, unspecified F31.9 [place] [address] [place] [address] [id number] [place] [address] 50971- 6597 09 Feb, [address] [facility] [address] [id number] [id number] Jan, [facility] [address] [id number] [id number] Oct, [facility] [address] [id number] [id number] Oct, [facility] [address] [facility] [id number] [id number] Feb, [facility] [address] [facility] [address] [id number] [id number] Feb, Bipolar 1 disorder F31.9 ; COPD (chronic obstructive pulmonary disease) J44.9 ; Breast cancer, right C50.911 ; Tachycardia R00.0 and Benign essential hypertension I10 [place] [address] 85928- 8887 Jan, Sebaceous cyst L72.3 [place] [address] 18122- 6403 Jan, [place] [address] 61896- 6521 Jan, Malignant neoplasm of right female breast, unspecified site of breast C50.911 [place] [address] [id number] [place] [address] 44171- 1317 Jan, [place] [address] [place] [id number] [place] [address] 18976- 6570 Jan, [place] [address] 19896- 9213 Jan, Sebaceous cyst L72.3 [place] [address] [id number] [place] [address] 84824- 3701 Dec, [place] [address] [place] [id number] [place] [address] 38408- 0330 Dec, Abnormal mammogram R92.8 and Breast mass N63 [place] [address] 11740- 6944 Dec, Breast pain, right N64.4 [place] [address] [place] [id number] [place] [address] 21978- 9326 Dec, COPD (chronic obstructive pulmonary disease) J44.9 ; Weight gain R63.5 and Encounter for weight loss counseling Z71.3 [place] [address] [place] [address] 05081- 9758 Dec, [place] [address] [place] [id number] [place] [address] 61635- 7339 Nov, Sebaceous cyst L72.3 [place] [address] [place] [id number] [place] [address] 39529- 8878 Oct, Skin lesion of right arm 709.9 and Localized swelling, mass , and lump of head 784.2 [place] [address] [place] [id number] [place] [address] 41710- 3180 Oct, [place] [address] [place] [id number] [place] [address] 01813- 8227 Oct, [place] [address] [place] [id number] [place] [address] 76363- 5784 Oct, Routine adult health maintenance V70.0 and Fatigue 780.79 [place] [address] [place] [id number] [place] [address] 64707- 1768 16 Oct, 2014 Routine adult health maintenance V70.0 ; COPD (chronic obstructive pulmonary disease) 496 ; Arthritis of both hips 716.95 ; Fatigue 780.79 and Localized swelling, mass, and lump of head 784.2 [place] [address] [place] [address] 60471- 2695 Oct, [place] [address] [place] [id number] [place] [address] 58477- 5329 Sep, COPD (chronic obstructive pulmonary disease) 496 and Bipolar disorder 296.80 IMMUNIZATIONS No Known Immunizations SOCIAL HISTORY Never Assessed REASON FOR VISIT COPD--[place]uppettRN PLAN OF CARE Activity Details Follow Up transitioning care to out of state Reason: VITAL SIGNS Height 65.5 in 2017-11-03 Weight 142.2 lbs 2017-11-03 Temperature 99.7 degrees Fahrenheit 2017-11-03 Heart Rate 80 bpm 2017-11-03 Respiratory Rate 16 2017-11-03 BMI 23.30 kg/m2 2017-11-03 Blood pressure systolic 158 mmHg 2017-11-03 Blood pressure diastolic 100 mmHg 2017-11-03 MEDICATIONS Medication Instructions Dosage Frequency Start Date End Date Duration Status Tramadol HCl 50 mg Orally every 6 hrs 1 tablet as needed 6h Oct, Nov, 28 days Active Omeprazole 20 mg Orally Once a day 1 capsule 24h Active Ipratropium-Albuterol 0.5-2.5 (3) MG/3ML Inhalation every 6 hrs 3 ml 6h Sep, Active Ibuprofen 200 mg Orally 4 times a day 3 tablet with food or milk as needed 6h Active RESULTS No Results PROCEDURES Procedure Date Ordered Result Body Site [facility] VISIT ESTABLISHED PATIENT Nov 03, 2017 INSTRUCTIONS MEDICATIONS ADMINISTERED No Known Medications [...] History surgeries Hospitalization History F[facility] of unknown origin-[facility] 05/24/16
--- OUTSIDE RECORDS SUMMARY | 2018-03-18 21:27 | XMS REPORT ---
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 Active 29525110 Problem Malignant neoplasm of unspecified site of right female breast C50.911 Active 192277825 Problem COPD (chronic obstructive pulmonary disease) J44.9 Active 04644633 Problem Moderate episode of recurrent major depressive disorder F33.1 Active 203473642 Problem Neuropathy of right foot G57.91 Active 908246224 Problem Malignant neoplasm of right female breast, unspecified site of breast C50.911 Active 249378657 Problem Bipolar 1 disorder, depressed F31.9 Active 59228996 Problem Tobacco abuse Z72.0 Active 841497141 Problem Seasonal allergic rhinitis, unspecified allergic rhinitis trigger J30.2 Active 763432553 ALLERGIES No Information ENCOUNTERS Encounter Location Date Diagnosis [place] [id number] [place] [address] 72803- 5089 Dec, [facility] [address] [place] [address] 59043- 1036 Nov, Malignant neoplasm of unspecified site of right female breast C50.911 ; 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 ; Moderate episode of recurrent major depressive disorder F33.1 and Encounter for immunization Z23 [facility] [address] [place] [address] 77968- 3321 Nov, [place] [address] [place] [address] 36066- 0664 Nov, [facility] [address] [address] 0907 Nov, [facility] [address] [place] [id number] [place] [address] 13184- 3328 Nov, [facility] [address] [place] [id number] [place] [address] 80975- 3382 Oct, COPD (chronic obstructive pulmonary disease) J44.9 and 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 [facility] [address] [place] [id number] [place] [address] 50168- 2146 Oct, [facility] [address] [place] [id number] [place] [address] 79880- 9633 Oct, [facility] [address] [place] [id number] [place] [address] 78441- 9361 Oct, [facility] [address] [place] [id number] [place] [address] 46865- 2606 Sep, Pneumonia of left lower lobe due to infectious organism J18.1 [facility] [address] [address] 2697 Sep, [facility] [address] [place] [id number] [address] 9762 Sep, [facility] [address] [place] [address] 64918- 5802 Sep, [facility] [address] [place] [address] 25162- 6883 Sep, [facility] [address] [address] 0870 Sep, [facility] [address] [place] [id number] [place] [address] 78656- 9398 Sep, Chest congestion R09.89 [facility] [address] [place] [id number] [address] 3719 Sep, [place] [address] [place] [id number] [place] [address] 62023- 7850 Sep, Chest congestion R09.89 [place] [address] 43112- 9254 Aug, [place] [address] [place] [id number] [place] [address] 56303- 2255 Jul, [place] [address] 41345- 0177 Jul, 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 ; Malignant neoplasm of unspecified site of right female breast C50.911 ; Jaw pain R68.84 and Moderate episode of recurrent major depressive disorder F33.1 [facility] [place] [address] [place] [id number] [place] [address] 34244 -0062 Jan, Rash R21 and Hordeolum externum of right lower eyelid H00.012 [place] [address] 79396- 4431 Jan, [facility] [place] [address] [place] [id number] [place] [address] 92398 -0571 Nov, Acute non-recurrent frontal sinusitis J01.10 [place] [address] [place] [id number] [place] [address] 93338- 6252 Jul, [place] [address] [place] [id number] [place] [address] 76135- 0525 Jul, [place] [address] [place] [id number] [place] [address] 26340- 7962 Jul, Neuropathy of right foot G57.91 ; Tobacco abuse Z72.0 and Breast cancer, right C50.911 [place] [address] [place] [id number] [place] [address] [id number] May, [facility] [place] [address] [place] [id number] [place] [address] 39351 -0265 May, Seasonal allergic rhinitis, unspecified allergic rhinitis trigger J30.2 [facility] [id number] [place] [address] 31544 -7896 Apr, Acute bacterial conjunctivitis of right eye H10.31 [place] [address] [place] [id number] [place] [address] 66251- 0376 22 Mar, 2016 Malignant neoplasm of right female breast, unspecified site of breast C50.911 ; Acute nasopharyngitis J00 and Bipolar 1 disorder, depressed F31.9 [facility] [address] [place] [id number] [place] [address] 56865 -7843 Mar, Subacute frontal sinusitis J01.10 and Cough R05 [facility] [address] [address]32 -1488 14 Mar, 2016 Acute non-recurrent maxillary sinusitis J01.00 [facility] [place] [id number] [place] [address] 52971 -6265 10 Mar, 2016 Seasonal allergic rhinitis, unspecified allergic rhinitis trigger J30.2 [place] [address] [place] [id number] [place] [address] 09398- 8537 Mar, [place] [address] [place] [id number] [place] [address] 73570- 8709 Feb, Bipolar disorder, unspecified F31.9 [place] [address] [place] [id number] [place] [address] 41227- 7395 Feb, [facility] [address] [id number] [id number] Jan, [facility] [address] [id number] [place] [id number] Oct, [facility] [address] [id number] [place] [id number] Oct, [facility] [address] [id number] [place] [id number] Feb, [facility] [address] [id number] [place] [id number] Feb, Bipolar 1 disorder F31.9 ; COPD (chronic obstructive pulmonary disease) J44.9 ; Breast cancer, right C50.911 ; Tachycardia R00.0 and Benign essential hypertension I10 [place] [address] [place] [id number] [place] [address] 56323- 6837 Jan, Sebaceous cyst L72.3 [place] [address] 12642- 3325 Jan, [place] [address] 04931- 0703 Jan, Malignant neoplasm of right female breast, unspecified site of breast C50.911 [place] [address] 26327- 6888 Jan, [place] [address] 87638- 4241 Jan, [place] [address] 49562- 4340 Jan, Sebaceous cyst L72.3 [place] [address] 17324- 6055 Dec, [place] [address] [place] [id number] [place] [address] 27666- 5431 Dec, Abnormal mammogram R92.8 and Breast mass N63 [place] [address] [place] [id number] [place] [address] 22593- 1056 Dec, Breast pain, right N64.4 [place] [address] 22959- 5875 Dec, COPD (chronic obstructive pulmonary disease) J44.9 ; Weight gain R63.5 and Encounter for weight loss counseling Z71.3 [place] [address] 20103- 0128 Dec, [place] [address] 41891- 6068 Nov, Sebaceous cyst L72.3 [place] [address] [address]- 2239 Oct, Skin lesion of right arm 709.9 and Localized swelling, mass , and lump of head 784.2 [place] [address] [address]- 5842 Oct, [place] [address] [place] [address] 67542- 2595 Oct, [place] [address] [place] [address] 13034- 2306 Oct, Routine adult health maintenance V70.0 and Fatigue 780.79 [place] [address] [place] [address] 44137- 4816 16 Oct, 2014 Routine adult health maintenance V70.0 ; COPD (chronic obstructive pulmonary disease) 496 ; Arthritis of both hips 716.95 ; Fatigue 780.79 and Localized swelling, mass, and lump of head 784.2 [place] [address] [place] [address] 70266- 7461 Oct, [place] [address] [place] [address] 45767- 2156 Sep, COPD (chronic obstructive pulmonary disease) 496 and Bipolar disorder 296.80 IMMUNIZATIONS No Known Immunizations SOCIAL HISTORY Never Assessed REASON FOR VISIT eye exam PLAN OF CARE VITAL SIGNS MEDICATIONS Unknown [...] History surgeries Hospitalization History Fever of unknown origin-[facility] 05/24/16
--- OUTSIDE RECORDS SUMMARY | 2018-03-18 21:28 | XMS REPORT ---
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 Active 66662623 Problem Malignant neoplasm of unspecified site of right female breast C50.911 Active 385962123 Problem COPD (chronic obstructive pulmonary disease) J44.9 Active 93755607 Problem Moderate episode of recurrent major depressive disorder F33.1 Active 550641027 Problem Neuropathy of right foot G57.91 Active 423177543 Problem Malignant neoplasm of right female breast, unspecified site of breast C50.911 Active 464222558 Problem Bipolar 1 disorder, depressed F31.9 Active 34317895 Problem Tobacco abuse Z72.0 Active 978434050 Problem Seasonal allergic rhinitis, unspecified allergic rhinitis trigger J30.2 Active 318468607 ALLERGIES Substance Reaction Event Type Date Status Lyrica Unknown Drug Allergy Jul, Active Haldol fever Drug Allergy Jul, Active Gabapentin Unknown Drug Allergy Jul, Active ENCOUNTERS Encounter Location Date Diagnosis [facility] [address] [address]- 4060 Oct, COPD (chronic obstructive pulmonary disease) J44.9 and 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 [facility] [address] [address]- 6919 Oct, [facility] [address] [place] [id number] [address]- 0647 Oct, [facility] [address] [address]- 2371 Oct, [facility] [address] [place] [address] 32199- 5927 Sep, Pneumonia of left lower lobe due to infectious organism J18.1 [facility] [address] [address]- 2438 Sep, [facility] [address] [place] [id number] [place] [address] 04218- 0521 Sep, [facility] [address] [place] [id number] [place] [address] 11438- 7124 Sep, [facility] [address] [place] [id number] [place] [address] 88655- 8370 Sep, [facility] [address] [place] [id number] [place] [address] 45624- 3545 Sep, [facility] [address] [place] [id number] [place] [address] 84738- 3412 Sep, Chest congestion R09.89 [facility] [address] [place] [id number] [place] [address] 10797- 6961 Sep, [facility] [address] [place] [id number] [place] [address] 28916- 6773 Sep, Chest congestion R09.89 [facility] [address] [place] [address] 67919- 3055 Aug, [facility] [address] [address]- 5243 Jul, [facility] [address] [place] [address] 82476- 2236 Jul, 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 ; Malignant neoplasm of unspecified site of right female breast C50.911 ; Jaw pain R68.84 and Moderate episode of recurrent major depressive disorder F33.1 [facility] [address] [address] Jan, Rash R21 and Hordeolum externum of right lower eyelid H00.012 [place] [address] 57222- 9025 Jan, [facility] [place] [address] 71247 -6110 Nov, Acute non-recurrent frontal sinusitis J01.10 [place] [address] 00547- 6897 Jul, [place] [address] 62248- 8563 Jul, [place] [address] 89639- 1065 Jul, Neuropathy of right foot G57.91 ; Tobacco abuse Z72.0 and Breast cancer, right C50.911 [place] [address] [id number] May, [facility] IN [address] 12559 -5629 May, Seasonal allergic rhinitis, unspecified allergic rhinitis trigger J30.2 [facility] IN [address] 81583 -1906 Apr, Acute bacterial conjunctivitis of right eye H10.[address] 61766- 1435 Mar, Malignant neoplasm of right female breast, unspecified site of breast C50.911 ; Acute nasopharyngitis J00 and Bipolar 1 disorder, depressed F31.9 [facility] W[facility] IN [address] 41435 -1703 Mar, Subacute frontal sinusitis J01.10 and Cough R05 [facility] [address] 96933 -1283 14 Mar, 2016 Acute non-recurrent maxillary sinusitis J01.00 [facility] [address] [address] -9322 10 Mar, 2016 Seasonal allergic rhinitis, unspecified allergic rhinitis trigger J30.2 [facility] [address] [place] [address] 06445- 7847 03 Mar, 2016 [facility] [address] [place] [id number] [place] [address] 92330- 5596 Feb, Bipolar disorder, unspecified F31.9 [facility] [address] [place] [id number] [place] [address] 13030- 0279 Feb, [facility] [id number] [place] [address] [id number] Jan, [facility] [id number] [place] [address] [id number] Oct, [facility] [id number] [place] [address] [id number] Oct, [facility] [id number] [place] [address] [id number] Feb, [facility] [place] [id number] [place] [address] [id number] Feb, Bipolar 1 disorder F31.9 ; COPD (chronic obstructive pulmonary disease) J44.9 ; Breast cancer, right C50.911 ; Tachycardia R00.0 and Benign essential hypertension I10 [place] [address] [place] [address] 22512- 9485 Jan, Sebaceous cyst L72.3 [place] [address] [place] [id number] [place] [address] 60395- 2437 Jan, [place] [address] [place] [id number] [place] [address] 33961- 9756 Jan, Malignant neoplasm of right female breast, unspecified site of breast C50.911 [place] [address] [place] [id number] [place] [address] 80518- 1449 Jan, [place] [address] [place] [id number] [place] [address] 90892- 7607 Jan, [facility] [address] 64459- 2815 Jan, Sebaceous cyst L72.3 [place] [address] 98911- 9818 Dec, [place] [address] 74519- 0370 Dec, Abnormal mammogram R92.8 and Breast mass N63 [place] [address] 69362- 6770 Dec, Breast pain, right N64.4 [place] [address] 06829- 9483 Dec, COPD (chronic obstructive pulmonary disease) J44.9 ; Weight gain R63.5 and Encounter for weight loss counseling Z71.3 [place] [address] [place] [id number] [place] [address] 24220- 6266 Dec, [place] [address] 36724- 3939 Nov, Sebaceous cyst L72.3 [place] [address] 44683- 4611 Oct, Skin lesion of right arm 709.9 and Localized swelling, mass , and lump of head 784.2 [place] [address] [place] [id number] [place] [address] 00079- 2455 Oct, [place] [address] 35479- 9380 Oct, [place] [address] [place] [id number] [place] [address] 29190- 3901 18 Oct, 2014 Routine adult health maintenance V70.0 and Fatigue 780.79 [place] [address] [place] [address]- 7152 Oct, Routine adult health maintenance V70.0 ; COPD (chronic obstructive pulmonary disease) 496 ; Arthritis of both hips 716.95 ; Fatigue 780.79 and Localized swelling, mass, and lump of head 784.2 [facility] [address] [facility] [id number] [address]- 8987 Oct, [facility] [address] [facility] [id number] [address]- 2256 Sep, COPD (chronic obstructive pulmonary disease) 496 and Bipolar disorder 296.80 IMMUNIZATIONS No Known Immunizations SOCIAL HISTORY Never Assessed REASON FOR VISIT Via [facility]- States she was passing bright red blood so she went to ER, states she has been out of all meds, states her provider cut her off-- Laura Adames RN PLAN OF CARE Activity Details Follow Up 4 Weeks with Bry ramsey pain medication Reason: VITAL SIGNS Height 65.5 in 2017-08-03 Weight 145 lbs 2017-08-03 Temperature 98.9 degrees Fahrenheit 2017-08-03 Heart Rate 80 bpm 2017-08-03 Respiratory Rate 16 2017-08-03 BMI 23.76 kg/m2 2017-08-03 Blood pressure systolic 120 mmHg 2017-08-03 Blood pressure diastolic 70 mmHg 2017-08-03 MEDICATIONS Medication Instructions Dosage Frequency Start Date End Date Duration Status Tramadol HCl 50 MG Orally every 6 hrs 1 tablet as needed 6h Not- Taking Abilify 15 MG Orally Once a day 1 tablet 24h Oct, Not-Taking Depakote 500 MG Orally at bedtime 4 tablet Not-Taking PredniSONE 10 mg Orally Once a day 6tabs first day and decrease by 1 tab daily 24h Not-Taking Omeprazole 20 MG Orally Once a day 1 capsule 24h Active Prochlorperazine 10 mg Orally at bedtime 1 tablet Active Hydrocortisone 1 % Externally Twice a day 1 application to affected area 12h Not-Taking Zofran ODT 8 MG Orally 3 times a day sravani needed 1 tablet on the tongue and allow to dissolve Not-Taking Hydrocodone-Acetaminophen 10-325 MG Orally every 6 hrs 1 tablet as needed 6h Active Morphine Sulfate 15 mg Orally 2 times a day 1 tablet as needed 12h 27 Jul, 2017 Aug, 14 days Active Lyrica 50 mg Orally 2 times a day 1 capsule 12h 12 Jul, 2016 28 days Not-Taking RESULTS No Results PROCEDURES No Known procedures [...] surgeries Hospitalization History Fever of unknown origin-[facility] 05/24/16
--- OUTSIDE RECORDS SUMMARY | 2018-03-18 21:28 | XMS REPORT ---
Author Author ABAD MURRAY [facility] Address [address] [place] [address] Care Team Providers Care Automatic Print Developer Name Role Phone ABAD MURRAY Unavailable PROBLEMS Type Condition ICD9-CM Code IQQ79-YJ Code Onset Dates Condition Status SNOMED Code Problem Arthritis of both hips M12.9 Active 33330489 Problem Bipolar disorder, unspecified F31.9 Active 89986620 Problem Benign essential hypertension I10 Active 4968307 Problem 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 Active 05924896 Problem Malignant neoplasm of unspecified site of right female breast C50.911 Active 193074335 Problem COPD (chronic obstructive pulmonary disease) J44.9 Active 53026537 Problem Moderate episode of recurrent major depressive disorder F33.1 Active 610515248 Problem Neuropathy of right foot G57.91 Active 867267509 Problem Malignant neoplasm of right female breast, unspecified site of breast C50.911 Active 542909866 Problem Bipolar 1 disorder, depressed F31.9 Active 22800874 Problem Tobacco abuse Z72.0 Active 838935571 Problem Seasonal allergic rhinitis, unspecified allergic rhinitis trigger J30.2 Active [id number] ALLERGIES No Information ENCOUNTERS Encounter Location Date Diagnosis [facility] [id number] [place] [address] 22324- 5013 Nov, [facility] [address] [place] [id number] [place] [address] 10806- 9815 Oct, COPD (chronic obstructive pulmonary disease) J44.9 and 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 [facility] [address] [place] [address] 36522- 2673 Oct, [facility] [address] [place] [address] 57275- 4683 Oct, [facility] [address] [id number] [address] Oct, [facility] [id number] [place] [address] 48562- 7041 Sep, Pneumonia of left lower lobe due to infectious organism J18.1 [facility] [id number] [place] [address] 45595- 9133 Sep, [facility] [id number] [place] [address] 83215- 2451 Sep, [facility] [id number] [place] [address] 79315- 8490 Sep, [facility] [id number] [place] [address] 60834- 6063 Sep, [facility] [id number] [place] [address] 96782- 7026 Sep, [facility] [id number] [place] [address] 20056- 7473 Sep, Chest congestion R09.89 [facility] [id number] [place] [address] 96831- 2084 Sep, [facility] [id number] [place] [address] 67537- 2182 Sep, Chest congestion R09.89 [facility] [id number] [place] [address] 72434- 1039 Aug, [facility] [id number] [place] [address] 80675- 1007 Jul, [facility] [address] [place] [address] 47010- 5319 Jul, 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 ; Malignant neoplasm of unspecified site of right female breast C50.911 ; Jaw pain R68.84 and Moderate episode of recurrent major depressive disorder F33.1 [facility] [address] [place] [address] 60772 -7026 Jan, Rash R21 and Hordeolum externum of right lower eyelid H00.012 [place] [address] [id number] [place] [address] 56366- 2222 Jan, [facility] [place] [address] 00[address] -[address]4 Nov, Acute non-recurrent frontal sinusitis J01.10 [place] [address] 22967- 8512 Jul, [place] [address] 15525- 6844 Jul, [place] [address] 49448- 7524 Jul, Neuropathy of right foot G57.91 ; Tobacco abuse Z72.0 and Breast cancer, right C50.911 [facility] [address] [id number] May, [facility] [address] 17881 -5317 May, Seasonal allergic rhinitis, unspecified allergic rhinitis trigger J30.2 [facility] [address] 10036 -3964 Apr, Acute bacterial conjunctivitis of right eye H10.[address] 22260- 6102 Mar, Malignant neoplasm of right female breast, unspecified site of breast C50.911 ; Acute nasopharyngitis J00 and Bipolar 1 disorder, depressed F31.9 [facility] [address] 32754 -3864 Mar, Subacute frontal sinusitis J01.10 and Cough R05 [facility] [address] 16582 -1193 14 Mar, 2016 Acute non-recurrent maxillary sinusitis J01.00 [facility] IN [facility] [address] [address] 10 Mar, 2016 Seasonal allergic rhinitis, unspecified allergic rhinitis trigger J30.2 [facility] [address] [address] 2174 03 Mar, 2016 [facility] [address] [address] 2954 Feb, Bipolar disorder, unspecified F31.9 [facility] [address] [address] 2874 Feb, [facility] [address] [id number] [id number] Jan, [facility] [id number] [place] [address] [id number] Oct, [facility] [address] [id number] [id number] Oct, [facility] [id number] [place] [address] [id number] Feb, [facility] [id number] [place] [address] [id number] Feb, Bipolar 1 disorder F31.9 ; COPD (chronic obstructive pulmonary disease) J44.9 ; Breast cancer, right C50.911 ; Tachycardia R00.0 and Benign essential hypertension I10 [facility] [address] [address] 2109 Jan, Sebaceous cyst L72.3 [facility] [address] [address]- 2521 Jan, [place] [id number] [place] [address] 71707- 1090 Jan, Malignant neoplasm of right female breast, unspecified site of breast C50.911 [facility] [id number] [place] [address] 51631- 8620 Jan, [place] [address] [place] [address] 47058- 5147 Jan, [place] [address] 41044- 6006 Jan, Sebaceous cyst L72.3 [place] [address] [place] [id number] [place] [address] 47304- 4527 Dec, [place] [address] 76343- 7909 Dec, Abnormal mammogram R92.8 and Breast mass N63 [place] [address] 87396- 2323 Dec, Breast pain, right N64.4 [place] [address] [place] [id number] [place] [address] 91251- 1228 Dec, COPD (chronic obstructive pulmonary disease) J44.9 ; Weight gain R63.5 and Encounter for weight loss counseling Z71.3 [place] [address] [id number] [place] [address] 70369- 1851 Dec, [place] [address] 83234- 2486 Nov, Sebaceous cyst L72.3 [place] [address] [address] [id number] [place] [address] 67597- 8998 Oct, Skin lesion of right arm 709.9 and Localized swelling, mass , and lump of head 784.2 [place] [address] [address] [id number] [place] [address] 29902- 7517 24 Oct, 2014 [place] [address] 72878- 8566 Oct, [place] [address] [place] [id number] [place] [address] 25520- 2540 18 Oct, 2014 Routine adult health maintenance V70.0 and Fatigue 780.79 [place] [address] 72681- 2546 Oct, Routine adult health maintenance V70.0 ; COPD (chronic obstructive pulmonary disease) 496 ; Arthritis of both hips 716.95 ; Fatigue 780.79 and Localized swelling, mass, and lump of head 784.2 [facility] [address] [facility] [id number] [address] 2546 Oct, [facility] [address] [facility] [id number] [address]- 8026 Sep, COPD (chronic obstructive pulmonary disease) 496 and Bipolar disorder 296.80 IMMUNIZATIONS No Known Immunizations SOCIAL HISTORY Never Assessed REASON FOR VISIT Rx request PLAN OF CARE VITAL SIGNS MEDICATIONS Unknown [...] History surgeries Hospitalization History Fever of unknown origin-[facility] 05/24/16
--- OUTSIDE RECORDS SUMMARY | 2018-03-18 21:28 | XMS REPORT ---
Author Author ABAD MURRAY [facility] Address [address] [place] [address] Care Team Providers Care Shop Firer/Fireman Name Role Phone ABAD MURRAY Unavailable PROBLEMS Type Condition ICD9-CM Code DMA69-HH Code Onset Dates Condition Status SNOMED Code Problem Arthritis of both hips M12.9 Active 43551710 Problem Bipolar disorder, unspecified F31.9 Active 48091910 Problem Benign essential hypertension I10 Active 5282857 Problem 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 Active 65117362 Problem Malignant neoplasm of unspecified site of right female breast C50.911 Active 101408511 Problem COPD (chronic obstructive pulmonary disease) J44.9 Active 13871441 Problem Moderate episode of recurrent major depressive disorder F33.1 Active 664734183 Problem Neuropathy of right foot G57.91 Active 213013325 Problem Malignant neoplasm of right female breast, unspecified site of breast C50.911 Active 600499469 Problem Bipolar 1 disorder, depressed F31.9 Active 28860168 Problem Tobacco abuse Z72.0 Active 535530450 Problem Seasonal allergic rhinitis, unspecified allergic rhinitis trigger J30.2 Active 564019762 ALLERGIES No Information ENCOUNTERS Encounter Location Date Diagnosis [facility] [id number] [place] [address] 53759- 4030 Oct, [facility] [address] [place] [address] 69883- 1435 Oct, [facility] [address] [place] [id number] [place] [address] 17917- 4432 Oct, [facility] [address] [address] [id number] [place] [address] 73333- 2931 Sep, Pneumonia of left lower lobe due to infectious organism J18.1 [facility] [address] [place] [address] [id number] [place] [address] 40675- 3423 Sep, [facility] [address] [address]- 5436 Sep, [facility] [address] [id number] [place] [address] 91128- 0597 Sep, [facility] [address] [id number] [place] [address] 95134- 0223 Sep, [facility] [address] [id number] [place] [address] 11386- 9083 Sep, [facility] [address] [address] [id number] [place] [address] 46508- 7004 Sep, Chest congestion R09.89 [facility] [address] [address] [id number] [place] [address] 99120- 1605 Sep, [facility] [address] [id number] [place] [address] 60173- 5910 Sep, Chest congestion R09.89 [facility] [address] [id number] [place] [address] 03251- 0943 Aug, [facility] [address] [address] [id number] [place] [address] 10392- 4447 Jul, [facility] [address] [place] [address] 46659- 0494 Jul, 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 ; Malignant neoplasm of unspecified site of right female breast C50.911 ; Jaw pain R68.84 and Moderate episode of recurrent major depressive disorder F33.1 [facility] [address] [place] [address] 78689 -5113 Jan, Rash R21 and Hordeolum externum of right lower eyelid H00.012 [facility] [address] [address]- 7596 Jan, [facility] [address] [id number] [place] [address] 56956 -6320 Nov, Acute non-recurrent frontal sinusitis J01.10 [facility] [address] [id number] [place] [address] 08213- 3154 Jul, [place] [address] [place] [id number] [place] [address] 60851- 7999 Jul, [place] [address] [place] [id number] [place] [address] 38804- 6475 Jul, Neuropathy of right foot G57.91 ; Tobacco abuse Z72.0 and Breast cancer, right C50.911 [facility] [address] [address] [id number] [place] [address] [id number] May, [facility] WALK IN [address] 266[address] May, Seasonal allergic rhinitis, unspecified allergic rhinitis trigger J30.2 [facility] IN [address] 90119 -0555 Apr, Acute bacterial conjunctivitis of right eye H10.31 [place] [address] [place] [id number] [place] [address] 67827- 2677 Mar, Malignant neoplasm of right female breast, unspecified site of breast C50.911 ; Acute nasopharyngitis J00 and Bipolar 1 disorder, depressed F31.9 [facility] [place] [id number] [place] [address] 61634 -9518 Mar, Subacute frontal sinusitis J01.10 and Cough R05 [facility] [place] [id number] [place] [address] 88123 -3016 14 Mar, 2016 Acute non-recurrent maxillary sinusitis J01.00 [facility] [place] [id number] [place] [address] 40455 -0194 10 Mar, 2016 Seasonal allergic rhinitis, unspecified allergic rhinitis trigger J30.2 [place] [address] [place] [id number] [place] [address] 24628- 8604 03 Mar, 2016 [place] [address] [address]- 7786 Feb, Bipolar disorder, unspecified F31.9 [facility] [address] [place] [id number] [place] [address] 85112- 9981 Feb, [facility] [address] [id number] [id number] Jan, [facility] [address] [id number][place] [id number] Oct, [facility] [address] [id number] [id number] Oct, [facility] [address] [id number] [id number] Feb, [facility] [address] [id number][place] [id number] Feb, Bipolar 1 disorder F31.9 ; COPD (chronic obstructive pulmonary disease) J44.9 ; Breast cancer, right C50.911 ; Tachycardia R00.0 and Benign essential hypertension I10 [facility] [address] [id number] [place] [address] 28135- 0908 Jan, Sebaceous cyst L72.3 [facility] [address] [place] [id number] [place] [address] 42252- 2658 Jan, [facility] [address] [place] [id number] [place] [address] 81470- 1721 Jan, Malignant neoplasm of right female breast, unspecified site of breast C50.911 [facility] [address] [place] [id number] [place] [address] 17051- 0558 Jan, [facility] [address] [place] [id number] [place] [address] 64342- 9250 Jan, [facility] [address] [place] [address] [id number] [place] [address] 53332- 8696 Jan, Sebaceous cyst L72.3 [facility] [address] [place] [address] 8[address]80- 0285 Dec, [place] [address] 91205- 3041 Dec, Abnormal mammogram R92.8 and Breast mass N63 [place] [address] 60444- 9119 Dec, Breast pain, right N64.[address] 99249- 3193 Dec, COPD (chronic obstructive pulmonary disease) J44.9 ; Weight gain R63.5 and Encounter for weight loss counseling Z71.[address] 88019- 8628 Dec, [address] 94489- 2669 Nov, Sebaceous cyst L72.[address] 21469- 1250 Oct, Skin lesion of right arm 709.9 and Localized swelling, mass , and lump of head 784.[address] 69898- 0073 Oct, [place] [address] 60389- 4746 Oct, [address] 03655- 0755 18 Oct, 2014 Routine adult health maintenance V70.0 and Fatigue 780.[address] 28492- 6261 16 Oct, 2014 Routine adult health maintenance V70.0 ; COPD (chronic obstructive pulmonary disease) 496 ; Arthritis of both hips 716.95 ; Fatigue 780.79 and Localized swelling, mass, and lump of head 784.[address] 38144- 7722 Oct, [facility] [address] [facility] [id number] [place] [address]- 7511 Sep, COPD (chronic obstructive pulmonary disease) 496 and Bipolar disorder 296.80 IMMUNIZATIONS No Known Immunizations SOCIAL HISTORY Never Assessed REASON FOR VISIT PLAN OF CARE VITAL SIGNS MEDICATIONS Unknown [...] History surgeries Hospitalization History Fever of unknown origin-[facility] 05/24/16
--- OUTSIDE RECORDS SUMMARY | 2018-03-18 21:28 | XMS REPORT ---
Author Author ABAD MURRAY [facility] Address [address] [place] [address] Care Team Providers Care Obstetric Anaesthetist Name Role Phone ABAD MURRAY Unavailable PROBLEMS Type Condition ICD9-CM Code CDW83-LH Code Onset Dates Condition Status SNOMED Code Problem Arthritis of both hips M12.9 Active 10117696 Problem Bipolar disorder, unspecified F31.9 Active 49977439 Problem Benign essential hypertension I10 Active 6035261 Problem 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 Active 38167538 Problem Malignant neoplasm of unspecified site of right female breast C50.911 Active 671815083 Problem COPD (chronic obstructive pulmonary disease) J44.9 Active 31257324 Problem Moderate episode of recurrent major depressive disorder F33.1 Active 695736048 Problem Neuropathy of right foot G57.91 Active 182107861 Problem Malignant neoplasm of right female breast, unspecified site of breast C50.911 Active 363999310 Problem Bipolar 1 disorder, depressed F31.9 Active 37278594 Problem Tobacco abuse Z72.0 Active 499789517 Problem Seasonal allergic rhinitis, unspecified allergic rhinitis trigger J30.2 Active [id number] ALLERGIES No Information ENCOUNTERS Encounter Location Date Diagnosis [facility] [id number] [place] [address] 25515- 5839 Oct, [facility] [address] [place] [address] 97634- 6448 Oct, [facility] [id number] [place] [address] 36945- 5894 Oct, [facility] [id number] [place] [address] 43743- 6148 Sep, Pneumonia of left lower lobe due to infectious organism J18.1 [facility] [id number] [place] [address] 62863- 1696 Sep, [facility] [address] [address] 6411 Sep, [facility] [id number] [place] [address] 35265- 2340 Sep, [facility] [id number] [place] [address] 43346- 6121 Sep, [facility] [id number] [place] [address] 37038- 9040 Sep, [facility] [id number] [place] [address] 63995- 9493 Sep, Chest congestion R09.89 [facility] [id number] [place] [address] 23957- 7410 Sep, [facility] [id number] [place] [address] 05004- 1869 Sep, Chest congestion R09.89 [facility] [id number] [place] [address] 61842- 7654 Aug, [facility] [id number] [place] [address] 51460- 9257 Jul, [facility] [address] [place] [address] 14518- 8177 Jul, 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 ; Malignant neoplasm of unspecified site of right female breast C50.911 ; Jaw pain R68.84 and Moderate episode of recurrent major depressive disorder F33.1 [facility] [address] [place] [address] 05299 -1852 Jan, Rash R21 and Hordeolum externum of right lower eyelid H00.012 [facility] [address] [address] 7238 Jan, [facility] [id number] [place] [address] 88941 -1668 Nov, Acute non-recurrent frontal sinusitis J01.10 [facility] [id number] [place] [address] 62299- 4320 Jul, [place] [id number] [place] [address] 34579- 4912 Jul, [place] [id number] [place] [address] 52988- 1863 Jul, Neuropathy of right foot G57.91 ; Tobacco abuse Z72.0 and Breast cancer, right C50.911 [facility] [place] [id number] [place] [address] [id number] May, [facility] WALK IN [address] 95542 -6541 May, Seasonal allergic rhinitis, unspecified allergic rhinitis trigger J30.2 [facility] WALK IN [address] 44436 -6647 Apr, Acute bacterial conjunctivitis of right eye H10.31 [place] [id number] [place] [address] 76828- 5070 Mar, Malignant neoplasm of right female breast, unspecified site of breast C50.911 ; Acute nasopharyngitis J00 and Bipolar 1 disorder, depressed F31.9 [facility] WALK IN [place] [id number] [place] [address] 77082 -5928 Mar, Subacute frontal sinusitis J01.10 and Cough R05 [facility] WALK IN [place] [id number] [place] [address] 25212 -9837 14 Mar, 2016 Acute non-recurrent maxillary sinusitis J01.00 [facility] WALK IN [place] [id number] [place] [address] 73385 -9042 10 Mar, 2016 Seasonal allergic rhinitis, unspecified allergic rhinitis trigger J30.2 [place] [id number] [place] [address] 24291- 7037 03 Mar, 2016 [place] [address] [address] 5900 Feb, Bipolar disorder, unspecified F31.9 [facility] [id number] [place] [address] 56998- 5964 Feb, [facility] [address] [id number] [id number] Jan, [facility] [address] [id number] [id number] Oct, [facility] [address] [id number] [id number] Oct, [facility] [address] [id number] [id number] Feb, [facility] [address] [id number] [id number] Feb, Bipolar 1 disorder F31.9 ; COPD (chronic obstructive pulmonary disease) J44.9 ; Breast cancer, right C50.911 ; Tachycardia R00.0 and Benign essential hypertension I10 [facility] [id number] [place] [address] 78057- 2205 Jan, Sebaceous cyst L72.3 [facility] [id number] [place] [address] 33368- 9232 Jan, [facility] [id number] [place] [address] 56609- 4559 Jan, Malignant neoplasm of right female breast, unspecified site of breast C50.911 [facility] [id number] [place] [address] 51173- 1290 Jan, [facility] [id number] [place] [address] 92374- 3555 Jan, [facility] [id number] [place] [address] 72270- 3169 Jan, Sebaceous cyst L72.3 [facility] [address] [place] [address] 14333- 0657 Dec, [place] [address] 21117- 4532 Dec, Abnormal mammogram R92.8 and Breast mass N63 [place] [address] 95372- 4805 Dec, Breast pain, right N64.[address] 83047- 7177 Dec, COPD (chronic obstructive pulmonary disease) J44.9 ; Weight gain R63.5 and Encounter for weight loss counseling Z71.[address] 59770- 2361 Dec, [address] 91658- 3456 Nov, Sebaceous cyst L72.[address] 83232- 7424 Oct, Skin lesion of right arm 709.9 and Localized swelling, mass , and lump of head 784.[address] 31398- 8815 Oct, [place] [address] 85041- 8292 Oct, [address] 00937- 5978 18 Oct, 2014 Routine adult health maintenance V70.0 and Fatigue 780.[address] 12508- 8399 16 Oct, 2014 Routine adult health maintenance V70.0 ; COPD (chronic obstructive pulmonary disease) 496 ; Arthritis of both hips 716.95 ; Fatigue 780.79 and Localized swelling, mass, and lump of head 784.[address] 17599- 7838 Oct, [facility] [address] [facility] [id number] [place] [address] 6395 Sep, COPD (chronic obstructive pulmonary disease) 496 and Bipolar disorder 296.80 IMMUNIZATIONS No Known Immunizations SOCIAL HISTORY Never Assessed REASON FOR VISIT Requests return call PLAN OF CARE VITAL SIGNS MEDICATIONS Medication Instructions Dosage Frequency Start Date End Date Duration Status Ensure Nutrition Shake - Orally 2 times a day 1 bottle 12h Sep, 30 days Active RESULTS No Results PROCEDURES No [...] surgeries Hospitalization History Fever of unknown origin-[facility] 05/24/16
--- OUTSIDE RECORDS SUMMARY | 2018-03-18 21:28 | XMS REPORT ---
Author Author ABAD MURRAY [facility] Address [address] [place] [address] Care Team Providers Care Spool Carrier Name Role Phone ABAD MURRAY Unavailable PROBLEMS Type Condition ICD9-CM Code UKX41-TF Code Onset Dates Condition Status SNOMED Code Problem Arthritis of both hips M12.9 Active 57596116 Problem Bipolar disorder, unspecified F31.9 Active 50002569 Problem Benign essential hypertension I10 Active 8663954 Problem 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 Active 20725588 Problem Malignant neoplasm of unspecified site of right female breast C50.911 Active 954776639 Problem COPD (chronic obstructive pulmonary disease) J44.9 Active 93282523 Problem Moderate episode of recurrent major depressive disorder F33.1 Active 558779553 Problem Neuropathy of right foot G57.91 Active 443136272 Problem Malignant neoplasm of right female breast, unspecified site of breast C50.911 Active 441903621 Problem Bipolar 1 disorder, depressed F31.9 Active 38502046 Problem Tobacco abuse Z72.0 Active 096439633 Problem Seasonal allergic rhinitis, unspecified allergic rhinitis trigger J30.2 Active 953306636 ALLERGIES No Information ENCOUNTERS Encounter Location Date Diagnosis [facility] [place] [address] [place] [address] 02287- 6762 Nov, [facility] [place] [id number] [place] [address] 37663- 6261 Oct, COPD (chronic obstructive pulmonary disease) J44.9 and 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 [facility] [place] [address] [place] [address] 03184- 7038 Oct, [facility] [place] [address] [place] [address] 04639- 3873 Oct, [facility] [place] [address] [id number] [address]- 0068 Oct, [facility] [place] [id number] [place] [address] 82444- 6588 Sep, Pneumonia of left lower lobe due to infectious organism J18.1 [facility] [place] [id number] [place] [address] 88977- 4392 Sep, [facility] [place] [id number] [place] [address] 72301- 0047 Sep, [facility] [place] [id number] [place] [address] 39126- 7097 Sep, [facility] [place] [id number] [place] [address] 49249- 7584 Sep, [facility] [place] [id number] [place] [address] 67707- 5046 Sep, [facility] [place] [id number] [place] [address] 21853- 9621 Sep, Chest congestion R09.89 [facility] [place] [id number] [place] [address] 38067- 8660 Sep, [facility] [place] [id number] [place] [address] 13689- 9300 Sep, Chest congestion R09.89 [facility] [place] [id number] [place] [address] 55735- 3043 Aug, [facility] [place] [id number] [place] [address] 85873- 0976 Jul, [facility] [place] [address] [place] [address] 93391- 5911 Jul, 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 ; Malignant neoplasm of unspecified site of right female breast C50.911 ; Jaw pain R68.84 and Moderate episode of recurrent major depressive disorder F33.1 [facility] [address] [place] [address] 32028 -5665 Jan, Rash R21 and Hordeolum externum of right lower eyelid H00.012 [place] [id number] [place] [address] 88043- 0949 Jan, [facility] WALK IN [place] [address] 53855 -5302 Nov, Acute non-recurrent frontal sinusitis J01.10 [place] [address] 11203- 7748 Jul, [place] [address] 48671- 0241 Jul, [place] [address] 25007- 8982 Jul, Neuropathy of right foot G57.91 ; Tobacco abuse Z72.0 and Breast cancer, right C50.911 [facility] [address] [id number] May, [facility] W[facility] IN [address] 06348 -2410 May, Seasonal allergic rhinitis, unspecified allergic rhinitis trigger J30.2 [facility] [address] 92912 -0286 Apr, Acute bacterial conjunctivitis of right eye H10.[address] 67344- 0833 Mar, Malignant neoplasm of right female breast, unspecified site of breast C50.911 ; Acute nasopharyngitis J00 and Bipolar 1 disorder, depressed F31.9 [facility] [address] 12995 -5987 Mar, Subacute frontal sinusitis J01.10 and Cough R05 [facility] [address] 22979 -3423 14 Mar, 2016 Acute non-recurrent maxillary sinusitis J01.00 [facility] WALK IN [facility] [address] [address] -[address] 10 Mar, 2016 Seasonal allergic rhinitis, unspecified allergic rhinitis trigger J30.2 [facility] [place] [address] [address]- 5189 03 Mar, 2016 [facility] [place] [address] [address]- 9306 Feb, Bipolar disorder, unspecified F31.9 [facility] [place] [address] [address]- 0270 Feb, [facility] [address] [id number] [id number] Jan, [facility] [id number] [place] [address] [id number] Oct, [facility] [address] [id number] [id number] Oct, [facility] [id number] [place] [address] [id number] Feb, [facility] [id number] [place] [address] [id number] Feb, Bipolar 1 disorder F31.9 ; COPD (chronic obstructive pulmonary disease) J44.9 ; Breast cancer, right C50.911 ; Tachycardia R00.0 and Benign essential hypertension I10 [facility] [place] [address] [address]- 9903 Jan, Sebaceous cyst L72.3 [facility] [place] [address] [address]- 2391 Jan, [place] [id number] [place] [address] 55704- 7375 Jan, Malignant neoplasm of right female breast, unspecified site of breast C50.911 [facility] [place] [id number] [place] [address] 65527- 5605 Jan, [place] [address] [place] [address] 65170- 6065 Jan, [place] [address] 46524- 9212 Jan, Sebaceous cyst L72.3 [place] [id number] [place] [address] 60559- 3495 Dec, [place] [address] 77129- 6724 Dec, Abnormal mammogram R92.8 and Breast mass N63 [place] [address] 08671- 3366 Dec, Breast pain, right N64.4 [place] [id number] [place] [address] 18833- 5785 Dec, COPD (chronic obstructive pulmonary disease) J44.9 ; Weight gain R63.5 and Encounter for weight loss counseling Z71.3 [place] [id number] [place] [address] 54668- 3061 Dec, [place] [address] 22113- 2127 Nov, Sebaceous cyst L72.3 [place] [address] [address] [id number] [place] [address] 62593- 5908 Oct, Skin lesion of right arm 709.9 and Localized swelling, mass , and lump of head 784.2 [place] [address] [place] [id number] [place] [address] 95738- 3287 24 Oct, 2014 [place] [address] 60603- 7009 Oct, [place] [address] [place] [id number] [place] [address] 66413- 3894 18 Oct, 2014 Routine adult health maintenance V70.0 and Fatigue 780.79 [place] [address] 98092- 2546 Oct, Routine adult health maintenance V70.0 ; COPD (chronic obstructive pulmonary disease) 496 ; Arthritis of both hips 716.95 ; Fatigue 780.79 and Localized swelling, mass, and lump of head 784.2 [facility] [place] [address] [facility] [id number] [address] 2546 Oct, [facility] [place] [address] [facility] [id number] [address]- 2666 Sep, COPD (chronic obstructive pulmonary disease) 496 and Bipolar disorder 296.80 IMMUNIZATIONS No Known Immunizations SOCIAL HISTORY Never Assessed REASON FOR VISIT Pain Medication Request PLAN OF CARE VITAL SIGNS MEDICATIONS Unknown [...] History surgeries Hospitalization History Fever of unknown origin-[facility] 05/24/16
--- OUTSIDE RECORDS SUMMARY | 2018-03-18 21:28 | XMS REPORT ---
Author Author ABAD MURRAY [facility] Address [address] [place] [address] Care Team Providers Care Boat Canvas Maker And Installer Name Role Phone ABAD MURRAY Unavailable PROBLEMS ALLERGIES No Information ENCOUNTERS IMMUNIZATIONS No Known Immunizations SOCIAL HISTORY No smoking Hx information available REASON FOR VISIT PLAN OF CARE VITAL SIGNS MEDICATIONS No Known Medications RESULTS No Results PROCEDURES No Known procedures INSTRUCTIONS MEDICATIONS ADMINISTERED No Known Medications MEDICAL (GENERAL) HISTORY
--- OUTSIDE RECORDS SUMMARY | 2018-03-18 21:29 | XMS REPORT ---
Author Author ABAD MURRAY [facility] Address [address] [place] [address] Care Team Providers Care Railroad Brakeman Name Role Phone ABAD MURRAY Unavailable PROBLEMS Type Condition ICD9-CM Code FLP71-RV Code Onset Dates Condition Status SNOMED Code Problem Arthritis of both hips M12.9 Active 50562917 Problem Bipolar disorder, unspecified F31.9 Active 13085766 Problem Benign essential hypertension I10 Active 2578213 Problem 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 Active 00892075 Problem Malignant neoplasm of unspecified site of right female breast C50.911 Active 826516712 Problem COPD (chronic obstructive pulmonary disease) J44.9 Active 65944553 Problem Moderate episode of recurrent major depressive disorder F33.1 Active 535772612 Problem Neuropathy of right foot G57.91 Active 462421926 Problem Malignant neoplasm of right female breast, unspecified site of breast C50.911 Active 585977490 Problem Bipolar 1 disorder, depressed F31.9 Active 65993660 Problem Tobacco abuse Z72.0 Active 613128645 Problem Seasonal allergic rhinitis, unspecified allergic rhinitis trigger J30.2 Active 662492229 ALLERGIES No Information ENCOUNTERS Encounter Location Date Diagnosis [facility] [id number] [place] [address] 73255- 1134 Oct, [facility] [address] [place] [id number] [place] [address] 53927- 6535 Oct, [facility] [id number] [place] [address] 69680- 9345 Sep, Pneumonia of left lower lobe due to infectious organism J18.1 [facility] [address] [place] [address] 55548- 1187 Sep, [facility] [id number] [place] [address] 34421- 5541 Sep, [facility] [id number] [place] [address] 38961- 1698 Sep, [facility] [id number] [place] [address] 45100- 6741 Sep, [facility] [id number] [place] [address] 79043- 6780 Sep, [facility] [id number] [place] [address] 05784- 8038 Sep, Chest congestion R09.89 [facility] [id number] [place] [address] 93719- 6241 Sep, [facility] [id number] [place] [address] 52212- 6535 Sep, Chest congestion R09.89 [facility] [id number] [place] [address] 82902- 4901 Aug, [facility] [id number] [place] [address] 38547- 2743 Jul, [facility] [id number] [place] [address] 82471- 8023 Jul, 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 ; Malignant neoplasm of unspecified site of right female breast C50.911 ; Jaw pain R68.84 and Moderate episode of recurrent major depressive disorder F33.1 [facility] [id number] [place] [address] 68512 -1844 Jan, Rash R21 and Hordeolum externum of right lower eyelid H00.012 [facility] [id number] [place] [address] 75607- 9007 Jan, [facility] [id number] [place] [address] 22814 -2465 Nov, Acute non-recurrent frontal sinusitis J01.10 [facility] [id number] [place] [address] 93267- 1661 Jul, [place] [id number] [place] [address] 04493- 3056 Jul, [place] [id number] [place] [address] 60891- 1797 Jul, Neuropathy of right foot G57.91 ; Tobacco abuse Z72.0 and Breast cancer, right C50.911 [facility] [place] [address] [id number] May, [facility] [place] [id number] [place] [address] 26049 -7285 May, Seasonal allergic rhinitis, unspecified allergic rhinitis trigger J30.2 [facility] [place] [id number] [place] [address] 30725 -0983 Apr, Acute bacterial conjunctivitis of right eye H10.31 [place] [address] 09297- 7962 Mar, Malignant neoplasm of right female breast, unspecified site of breast C50.911 ; Acute nasopharyngitis J00 and Bipolar 1 disorder, depressed F31.9 [facility] [place] [id number] [place] [address] 06000 -1372 Mar, Subacute frontal sinusitis J01.10 and Cough R05 [facility] IN [place] [id number] [place] [address] 51893 -2378 14 Mar, 2016 Acute non-recurrent maxillary sinusitis J01.00 [facility] [address] [place] [id number] [place] [address] 52549 -7773 Mar, Seasonal allergic rhinitis, unspecified allergic rhinitis trigger J30.2 [place] [id number] [place] [address] 71620- 9141 03 Mar, 2016 [place] [id number] [place] [address] 11266- 9128 Feb, Bipolar disorder, unspecified F31.9 [facility] [address] [address] Feb, [facility] [address] [id number] [id number] Jan, [facility] [address] [id number] [id number] Oct, [facility] [address] [id number] [id number] Oct, [facility] [address] [id number][place] [id number] Feb, [facility] [address] [id number] [id number] Feb, Bipolar 1 disorder F31.9 ; COPD (chronic obstructive pulmonary disease) J44.9 ; Breast cancer, right C50.911 ; Tachycardia R00.0 and Benign essential hypertension I10 [facility] [id number] [place] [address] 85446- 9832 Jan, Sebaceous cyst L72.3 [facility] [id number] [place] [address] 10912- 0847 Jan, [facility] [id number] [place] [address] 00313- 6247 Jan, Malignant neoplasm of right female breast, unspecified site of breast C50.911 [facility] [id number] [place] [address] 91335- 7396 Jan, [facility] [id number] [place] [address] 83477- 5511 Jan, [facility] [id number] [place] [address] 69361- 4175 Jan, Sebaceous cyst L72.3 [facility] [id number] [place] [address] 69317- 2447 Dec, [facility] [id number] [place] [address] 52772- 3716 Dec, Abnormal mammogram R92.8 and Breast mass N63 [place] [id number] [place] [address] 61701- 8287 Dec, Breast pain, right N64.4 [facility] [id number] [place] [address] 47221- 1886 Dec, COPD (chronic obstructive pulmonary disease) J44.9 ; Weight gain R63.5 and Encounter for weight loss counseling Z71.3 [place] [address] 74131- 8747 Dec, [place] [address] 24067- 7653 Nov, Sebaceous cyst L72.3 [place] [id number] [place] [address] 04181- 5697 Oct, Skin lesion of right arm 709.9 and Localized swelling, mass , and lump of head 784.2 [place] [id number] [place] [address] 27264- 4796 Oct, [place] [address] 66172- 6526 Oct, [place] [id number] [place] [address] 60602- 8899 Oct, Routine adult health maintenance V70.0 and Fatigue 780.79 [place] [id number] [place] [address] 82788- 0812 16 Oct, 2014 Routine adult health maintenance V70.0 ; COPD (chronic obstructive pulmonary disease) 496 ; Arthritis of both hips 716.95 ; Fatigue 780.79 and Localized swelling, mass, and lump of head 784.2 [place] [id number] [place] [address] 83939- 3514 Oct, [place] [address] 93001- 8702 Sep, COPD (chronic obstructive pulmonary disease) 496 and Bipolar disorder 296.80 IMMUNIZATIONS No Known Immunizations SOCIAL HISTORY Never Assessed REASON FOR VISIT Vision appt PLAN OF CARE VITAL SIGNS MEDICATIONS Unknown [...] History surgeries Hospitalization History Fever of unknown origin-[facility] 05/24/16
--- OUTSIDE RECORDS SUMMARY | 2018-03-18 21:29 | XMS REPORT ---
Author Author ABAD MURRAY [facility] Address [address] [place] [address] Care Team Providers Care Supervisor Grinding Name Role Phone ABAD MURRAY Unavailable PROBLEMS Type Condition ICD9-CM Code WYM40-RM Code Onset Dates Condition Status SNOMED Code Problem Arthritis of both hips M12.9 Active 35762020 Problem Bipolar disorder, unspecified F31.9 Active 40676535 Problem Benign essential hypertension I10 Active 8603462 Problem 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 Active 06116853 Problem Malignant neoplasm of unspecified site of right female breast C50.911 Active 451372304 Problem COPD (chronic obstructive pulmonary disease) J44.9 Active 77773127 Problem Moderate episode of recurrent major depressive disorder F33.1 Active 442571886 Problem Neuropathy of right foot G57.91 Active 406522100 Problem Malignant neoplasm of right female breast, unspecified site of breast C50.911 Active 244947458 Problem Bipolar 1 disorder, depressed F31.9 Active 56325483 Problem Tobacco abuse Z72.0 Active 486508253 Problem Seasonal allergic rhinitis, unspecified allergic rhinitis trigger J30.2 Active 047285288 ALLERGIES No Information ENCOUNTERS Encounter Location Date Diagnosis [facility] [address] [place] [address] 89299- 2460 Oct, [facility] [address] [place] [address] 58035- 9922 Oct, [facility] [id number] [place] [address] 39015- 4857 Oct, [facility] [id number] [place] [address] 80352- 4899 Sep, Pneumonia of left lower lobe due to infectious organism J18.1 [facility] [id number] [place] [address] 76609- 1556 Sep, [facility] [address] [address]- 7162 Sep, [facility] [id number] [place] [address] 03385- 6132 Sep, [facility] [id number] [place] [address] 25332- 4311 Sep, [facility] [id number] [place] [address] 04225- 3494 Sep, [facility] [id number] [place] [address] 52560- 2202 Sep, Chest congestion R09.89 [facility] [id number] [place] [address] 00939- 8099 Sep, [facility] [id number] [place] [address] 91907- 6776 Sep, Chest congestion R09.89 [facility] [id number] [place] [address] 53112- 1691 Aug, [facility] [id number] [place] [address] 52700- 4290 Jul, [facility] [address] [place] [address] 41150- 9891 Jul, 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 ; Malignant neoplasm of unspecified site of right female breast C50.911 ; Jaw pain R68.84 and Moderate episode of recurrent major depressive disorder F33.1 [facility] [address] [place] [address] 98968 -7012 Jan, Rash R21 and Hordeolum externum of right lower eyelid H00.012 [facility] [address] [address]- 9708 Jan, [facility] [id number] [place] [address] 17397 -2417 Nov, Acute non-recurrent frontal sinusitis J01.10 [facility] [id number] [place] [address] 39420- 2339 Jul, [place] [id number] [place] [address] 23395- 5633 Jul, [place] [id number] [place] [address] 76698- 3385 Jul, Neuropathy of right foot G57.91 ; Tobacco abuse Z72.0 and Breast cancer, right C50.911 [facility] [id number] [place] [address] [id number] May, [facility] IN [address] 70352 -5278 May, Seasonal allergic rhinitis, unspecified allergic rhinitis trigger J30.2 [facility] IN [address] 38165 -3302 Apr, Acute bacterial conjunctivitis of right eye H10.31 [place] [id number] [place] [address] 00217- 7549 Mar, Malignant neoplasm of right female breast, unspecified site of breast C50.911 ; Acute nasopharyngitis J00 and Bipolar 1 disorder, depressed F31.9 [facility] IN [place] [id number] [place] [address] 24873 -8335 Mar, Subacute frontal sinusitis J01.10 and Cough R05 [facility] [place] [id number] [place] [address] 85466 -1633 14 Mar, 2016 Acute non-recurrent maxillary sinusitis J01.00 [facility] [place] [id number] [place] [address] 60689 -8663 10 Mar, 2016 Seasonal allergic rhinitis, unspecified allergic rhinitis trigger J30.2 [place] [id number] [place] [address] 73451- 8917 03 Mar, 2016 [place] [address] [address]- 5684 Feb, Bipolar disorder, unspecified F31.9 [facility] [id number] [place] [address] 68201- 2319 Feb, [facility] [address] [id number] [id number] Jan, [facility] [address] [id number][place] [id number] Oct, [facility] [address] [id number][place] [id number] Oct, [facility] [address] [id number] [id number] Feb, [facility] [address] [id number][place] [id number] Feb, Bipolar 1 disorder F31.9 ; COPD (chronic obstructive pulmonary disease) J44.9 ; Breast cancer, right C50.911 ; Tachycardia R00.0 and Benign essential hypertension I10 [facility] [id number] [place] [address] 00468- 5995 Jan, Sebaceous cyst L72.3 [facility] [id number] [place] [address] 75582- 1512 Jan, [facility] [id number] [place] [address] 06824- 0199 Jan, Malignant neoplasm of right female breast, unspecified site of breast C50.911 [facility] [id number] [place] [address] 64499- 4219 Jan, [facility] [id number] [place] [address] 55455- 7134 Jan, [facility] [id number] [place] [address] 57634- 9557 Jan, Sebaceous cyst L72.3 [facility] [address] [place] [address] 0[address]- 5982 Dec, [place] [address] 46685- 9290 Dec, Abnormal mammogram R92.8 and Breast mass N63 [place] [address] 01139- 0433 Dec, Breast pain, right N64.[address] 67913- 5850 Dec, COPD (chronic obstructive pulmonary disease) J44.9 ; Weight gain R63.5 and Encounter for weight loss counseling Z71.[address] 58717- 3735 Dec, [address] 52675- 2103 Nov, Sebaceous cyst L72.[address] 91613- 3240 Oct, Skin lesion of right arm 709.9 and Localized swelling, mass , and lump of head 784.[address] 32455- 0178 Oct, [place] [address] 60726- 4303 Oct, [address] 11216- 1837 18 Oct, 2014 Routine adult health maintenance V70.0 and Fatigue 780.[address] 01797- 2824 16 Oct, 2014 Routine adult health maintenance V70.0 ; COPD (chronic obstructive pulmonary disease) 496 ; Arthritis of both hips 716.95 ; Fatigue 780.79 and Localized swelling, mass, and lump of head 784.[address] 52009- 3983 Oct, [facility] [address] [facility] [id number] [place] [address]- 3366 Sep, COPD (chronic obstructive pulmonary disease) 496 and Bipolar disorder 296.80 IMMUNIZATIONS No Known Immunizations SOCIAL HISTORY Never Assessed REASON FOR VISIT Medication refill request PLAN OF CARE VITAL SIGNS MEDICATIONS [...] History surgeries Hospitalization History Fever of unknown origin-[facility] 05/24/16
--- OUTSIDE RECORDS SUMMARY | 2018-03-18 21:29 | XMS REPORT ---
Author Author ABAD MURRAY [facility] Address [address] [place] [address] Care Team Providers Care Senior Technologist Name Role Phone ABAD MURRAY Unavailable PROBLEMS Type Condition ICD9-CM Code BHP02-YB Code Onset Dates Condition Status SNOMED Code Problem Arthritis of both hips M12.9 Active 46358861 Problem Bipolar disorder, unspecified F31.9 Active 85227241 Problem Benign essential hypertension I10 Active 2383402 Problem 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 Active 14919769 Problem Malignant neoplasm of unspecified site of right female breast C50.911 Active 896519803 Problem COPD (chronic obstructive pulmonary disease) J44.9 Active 30854695 Problem Moderate episode of recurrent major depressive disorder F33.1 Active 380565103 Problem Neuropathy of right foot G57.91 Active 294234687 Problem Malignant neoplasm of right female breast, unspecified site of breast C50.911 Active 976781151 Problem Bipolar 1 disorder, depressed F31.9 Active 74817428 Problem Tobacco abuse Z72.0 Active 681987489 Problem Seasonal allergic rhinitis, unspecified allergic rhinitis trigger J30.2 Active 936370343 ALLERGIES No Information ENCOUNTERS Encounter Location Date Diagnosis [facility] [id number] [place] [address] 49921- 7479 Oct, [facility] [address] [place] [id number] [place] [address] 84254- 6550 Oct, [facility] [id number] [place] [address] 70140- 8076 Oct, [facility] [id number] [place] [address] 73403- 8460 Oct, [facility] [id number] [place] [address] 16736- 9604 Sep, Pneumonia of left lower lobe due to infectious organism J18.1 [facility] [address] [address] 77[address] Sep, [facility] [id number] [place] [address] 80608- 6387 Sep, [facility] [id number] [place] [address] 15228- 3663 Sep, [facility] [id number] [place] [address] 71210- 7697 Sep, [facility] [id number] [place] [address] 93862- 1926 Sep, [facility] [id number] [place] [address] 84219- 7705 Sep, Chest congestion R09.89 [facility] [id number] [place] [address] 12328- 1134 Sep, [facility] [id number] [place] [address] 53639- 3320 Sep, Chest congestion R09.89 [facility] [id number] [place] [address] 54051- 6554 Aug, [facility] [id number] [place] [address] 16312- 6495 Jul, [facility] [address] [place] [address] 56382- 8743 Jul, 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 ; Malignant neoplasm of unspecified site of right female breast C50.911 ; Jaw pain R68.84 and Moderate episode of recurrent major depressive disorder F33.1 [facility] [id number] [place] [address] 91651 -8316 Jan, Rash R21 and Hordeolum externum of right lower eyelid H00.012 [facility] [id number] [place] [address] 18750- 6891 Jan, [facility] [id number] [place] [address] 20852 -7017 Nov, Acute non-recurrent frontal sinusitis J01.10 [place] [address] [id number] [place] [address] 81191- 2673 Jul, [place] [address] 07697- 8023 Jul, [place] [address] 99702- 1571 Jul, Neuropathy of right foot G57.91 ; Tobacco abuse Z72.0 and Breast cancer, right C50.911 [place] [address] [id number] May, [facility] [place] [address] 50578 -4806 May, Seasonal allergic rhinitis, unspecified allergic rhinitis trigger J30.2 [facility] [place] [id number] [place] [address] 27650 -8826 Apr, Acute bacterial conjunctivitis of right eye H10.31 [place] [address] 63691- 6112 Mar, Malignant neoplasm of right female breast, unspecified site of breast C50.911 ; Acute nasopharyngitis J00 and Bipolar 1 disorder, depressed F31.9 [facility] [place] [address] 07799 -0418 Mar, Subacute frontal sinusitis J01.10 and Cough R05 [facility] [address] 36140 -9537 14 Mar, 2016 Acute non-recurrent maxillary sinusitis J01.00 [facility] [place] [id number] [place] [address] 31672 -8219 10 Mar, 2016 Seasonal allergic rhinitis, unspecified allergic rhinitis trigger J30.2 [place] [id number] [place] [address] 95956- 9760 Mar, [facility] [id number] [place] [address] 81270- 6362 Feb, Bipolar disorder, unspecified F31.9 [facility] [id number] [place] [address] 34160- 2256 Feb, [facility] [address] [id number] [id number] Jan, [facility] [address] [id number] [id number] Oct, [facility] [id number] [place] [id number] Oct, [facility] [id number] [place] [address] [id number] Feb, [facility] [id number] [place] [address] [id number] Feb, Bipolar 1 disorder F31.9 ; COPD (chronic obstructive pulmonary disease) J44.9 ; Breast cancer, right C50.911 ; Tachycardia R00.0 and Benign essential hypertension I10 [place] [address] [id number] [place] [address] 64480- 8579 Jan, Sebaceous cyst L72.3 [place] [address] [address] [id number] [place] [address] 91273- 3692 Jan, [facility] [id number] [place] [address] 85737- 5562 Jan, Malignant neoplasm of right female breast, unspecified site of breast C50.911 [place] [address] [id number] [place] [address] 73337- 1564 Jan, [facility] [id number] [place] [address] 80742- 6082 Jan, [facility] [address] 50061- 8630 Jan, Sebaceous cyst L72.3 [place] [address] [address] [id number] [place] [address] 68140- 2678 Dec, [place] [address] 00269- 3546 Dec, Abnormal mammogram R92.8 and Breast mass N63 [place] [address] 84336- 1452 Dec, Breast pain, right N64.4 [place] [address] [id number] [place] [address] 16830- 5853 Dec, COPD (chronic obstructive pulmonary disease) J44.9 ; Weight gain R63.5 and Encounter for weight loss counseling Z71.3 [place] [address] 80771- 5607 Dec, [place] [address] 59806- 0336 Nov, Sebaceous cyst L72.3 [place] [address] [id number] [place] [address] 90092- 2212 Oct, Skin lesion of right arm 709.9 and Localized swelling, mass , and lump of head 784.2 [place] [address] [id number] [place] [address] 66528- 8659 Oct, [place] [address] [id number] [place] [address] 56078- 1412 Oct, [place] [address] [place] [id number] [place] [address] 26526- 9052 18 Oct, 2014 Routine adult health maintenance V70.0 and Fatigue 780.79 [place] [address] [id number] [place] [address] 59317- 5957 16 Oct, 2014 Routine adult health maintenance V70.0 ; COPD (chronic obstructive pulmonary disease) 496 ; Arthritis of both hips 716.95 ; Fatigue 780.79 and Localized swelling, mass, and lump of head 784.2 [facility] [address] [facility] [id number] [place] [address]- 3734 Oct, [facility] [address] [facility] [id number] [address] Sep, COPD (chronic obstructive pulmonary disease) 496 and Bipolar disorder 296.80 IMMUNIZATIONS No Known Immunizations SOCIAL HISTORY Never Assessed REASON FOR VISIT Xray (walk-in) PLAN OF CARE VITAL SIGNS Height 65.5 in 2017-09-14 Oximetry 98 % 2017-09-14 MEDICATIONS Unknown Medications RESULTS Name Result Date Reference Range Xray : Chest 2 View (IN HOUSE) 2017-09-14 PROCEDURES Procedure Date Ordered Result Body Site X-RAY EXAM CHEST 2 VIEWS Sep 14, 2017 INSTRUCTIONS MEDICATIONS ADMINISTERED No Known Medications [...] surgeries Hospitalization History Fever of unknown origin-[facility] 05/24/16
--- OUTSIDE RECORDS SUMMARY | 2018-03-18 21:29 | XMS REPORT ---
Author Author ABAD MURRAY [facility] Address [address] [place] [address] Care Team Providers Care Energy Management Specialist Name Role Phone ABAD MURRAY Unavailable PROBLEMS Type Condition ICD9-CM Code STD49-QX Code Onset Dates Condition Status SNOMED Code Problem Arthritis of both hips M12.9 Active 48201877 Problem Bipolar disorder, unspecified F31.9 Active 20585040 Problem Benign essential hypertension I10 Active 6097252 Problem 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 Active 85933366 Problem Malignant neoplasm of unspecified site of right female breast C50.911 Active 125239810 Problem COPD (chronic obstructive pulmonary disease) J44.9 Active 98225858 Problem Moderate episode of recurrent major depressive disorder F33.1 Active 709581870 Problem Neuropathy of right foot G57.91 Active 743873869 Problem Malignant neoplasm of right female breast, unspecified site of breast C50.911 Active 950959093 Problem Bipolar 1 disorder, depressed F31.9 Active 78284078 Problem Tobacco abuse Z72.0 Active 579616597 Problem Seasonal allergic rhinitis, unspecified allergic rhinitis trigger J30.2 Active 413553326 ALLERGIES No Information ENCOUNTERS Encounter Location Date Diagnosis [facility] [id number] [place] [address] 15231- 7828 Oct, [facility] [address] [place] [id number] [place] [address] 76908- 9611 Oct, [facility] [id number] [place] [address] 80862- 0462 Sep, Pneumonia of left lower lobe due to infectious organism J18.1 [facility] [address] [place] [address] 71333- 5770 Sep, [facility] [id number] [place] [address] 34270- 2588 Sep, [facility] [id number] [place] [address] 16006- 6356 Sep, [facility] [id number] [place] [address] 77486- 0033 Sep, [facility] [id number] [place] [address] 09570- 5537 Sep, [facility] [address] [place] [address] [id number] [place] [address] 28435- 2462 Sep, Chest congestion R09.89 [facility] [address] [place] [address] [id number] [place] [address] 00356- 5111 Sep, [facility] [address] [address] [id number] [place] [address] 55734- 1152 Sep, Chest congestion R09.89 [facility] [address] [id number] [place] [address] 30516- 0335 Aug, [facility] [id number] [place] [address] 92716- 6771 Jul, [facility] [address] [place] [address] [id number] [place] [address] 87341- 4260 Jul, 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 ; Malignant neoplasm of unspecified site of right female breast C50.911 ; Jaw pain R68.84 and Moderate episode of recurrent major depressive disorder F33.1 [facility] [id number] [place] [address] 14121 -9980 Jan, Rash R21 and Hordeolum externum of right lower eyelid H00.012 [facility] [address] [place] [id number] [place] [address] 57201- 1646 Jan, [facility] [id number] [place] [address] 12249 -9017 Nov, Acute non-recurrent frontal sinusitis J01.10 [facility] [address] [place] [id number] [place] [address] 39789- 1761 Jul, [place] [address] [place] [id number] [place] [address] 85897- 6970 Jul, [place] [address] [place] [id number] [place] [address] 53472- 8630 Jul, Neuropathy of right foot G57.91 ; Tobacco abuse Z72.0 and Breast cancer, right C50.911 [facility] [address] [id number] May, [facility] [place] [address] [id number] [place] [address] 13911 -7526 May, Seasonal allergic rhinitis, unspecified allergic rhinitis trigger J30.2 [facility] [place] [id number] [place] [address] 18686 -9293 Apr, Acute bacterial conjunctivitis of right eye H10.31 [place] [address] 27167- 7514 Mar, Malignant neoplasm of right female breast, unspecified site of breast C50.911 ; Acute nasopharyngitis J00 and Bipolar 1 disorder, depressed F31.9 [facility] [place] [id number] [place] [address] 20895 -1242 Mar, Subacute frontal sinusitis J01.10 and Cough R05 [facility] [place] [id number] [place] [address] 44441 -0649 14 Mar, 2016 Acute non-recurrent maxillary sinusitis J01.00 [facility] [address] [place] [id number] [place] [address] 09181 -2088 Mar, Seasonal allergic rhinitis, unspecified allergic rhinitis trigger J30.2 [place] [address] [place] [id number] [place] [address] 25304- 5145 03 Mar, 2016 [place] [address] [place] [id number] [place] [address] 22744- 1593 Feb, Bipolar disorder, unspecified F31.9 [facility] [address] [address] 0944 Feb, [facility] [address] [id number] [id number] Jan, [facility] [address] [id number] [id number] Oct, [facility] [address] [id number] [id number] Oct, [facility] [address] [id number] [id number] Feb, [facility] [address] [id number] [id number] Feb, Bipolar 1 disorder F31.9 ; COPD (chronic obstructive pulmonary disease) J44.9 ; Breast cancer, right C50.911 ; Tachycardia R00.0 and Benign essential hypertension I10 [facility] [address] [place] [id number] [place] [address] 51650- 9674 Jan, Sebaceous cyst L72.3 [facility] [address] [id number] [place] [address] 28378- 7705 Jan, [facility] [address] [id number] [place] [address] 99181- 2968 Jan, Malignant neoplasm of right female breast, unspecified site of breast C50.911 [facility] [address] [id number] [place] [address] 32861- 4857 Jan, [facility] [address] [id number] [place] [address] 59027- 0024 Jan, [facility] [address] [id number] [place] [address] 59698- 5150 Jan, Sebaceous cyst L72.3 [facility] [address] [id number] [place] [address] 23096- 2531 Dec, [facility] [address] [place] [id number] [place] [address] 37380- 2222 Dec, Abnormal mammogram R92.8 and Breast mass N63 [place] [address] [place] [id number] [place] [address] 41241- 1218 Dec, Breast pain, right N64.4 [place] [address] [place] [id number] [place] [address] 29259- 1822 Dec, COPD (chronic obstructive pulmonary disease) J44.9 ; Weight gain R63.5 and Encounter for weight loss counseling Z71.3 [place] [address] 74682- 4104 Dec, [place] [address] 19987- 2325 Nov, Sebaceous cyst L72.3 [place] [address] [place] [id number] [place] [address] 22745- 5430 Oct, Skin lesion of right arm 709.9 and Localized swelling, mass , and lump of head 784.2 [place] [address] [place] [id number] [place] [address] 66126- 5881 Oct, [place] [address] 00504- 7330 Oct, [place] [address] [place] [id number] [place] [address] 09349- 8270 Oct, Routine adult health maintenance V70.0 and Fatigue 780.79 [place] [address] [place] [id number] [place] [address] 91640- 6221 16 Oct, 2014 Routine adult health maintenance V70.0 ; COPD (chronic obstructive pulmonary disease) 496 ; Arthritis of both hips 716.95 ; Fatigue 780.79 and Localized swelling, mass, and lump of head 784.2 [place] [address] [place] [id number] [place] [address] 08741- 6411 Oct, [place] [address] 46014- 5079 Sep, COPD (chronic obstructive pulmonary disease) 496 and Bipolar disorder 296.80 IMMUNIZATIONS No Known Immunizations SOCIAL HISTORY Never Assessed REASON FOR VISIT Requests return call PLAN OF CARE VITAL SIGNS MEDICATIONS Medication Instructions Dosage Frequency Start Date End Date Duration Status Ipratropium-Albuterol 0.5-2.5 (3) MG/3ML Inhalation every 6 hrs 3 ml 6h Sep, 30 days Active RESULTS No Results [...] History surgeries Hospitalization History Fever of unknown origin-[facility] 05/24/16
--- OUTSIDE RECORDS SUMMARY | 2018-03-18 21:29 | XMS REPORT ---
Author Author MENDEL TIAN [facility] Address [address] [place] [address] Care Team Providers Care Leasing Machine Tender Name Role Phone IAN TIANTA Unavailable PROBLEMS Type Condition ICD9-CM Code [id number] Code Onset Dates Condition Status SNOMED Code Problem Arthritis of both hips M12.9 Active 26257876 Problem Bipolar disorder, unspecified F31.9 Active 26610834 Problem Benign essential hypertension I10 Active 9544982 Problem 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 Active 03684279 Problem Malignant neoplasm of unspecified site of right female breast C50.911 Active 199260979 Problem COPD (chronic obstructive pulmonary disease) J44.9 Active 00239670 Problem Moderate episode of recurrent major depressive disorder F33.1 Active 805094119 Problem Neuropathy of right foot G57.91 Active 179929387 Problem Malignant neoplasm of right female breast, unspecified site of breast C50.911 Active 557499700 Problem Bipolar 1 disorder, depressed F31.9 Active 07814119 Problem Tobacco abuse Z72.0 Active 324391284 Problem Seasonal allergic rhinitis, unspecified allergic rhinitis trigger J30.2 Active 117888838 ALLERGIES Substance Reaction Event Type Date Status Lyrica Unknown Drug Allergy Sep, Active Haldol fever Drug Allergy Sep, Active Gabapentin Unknown Drug Allergy Sep, Active Cipro diarrhea Drug Allergy Sep, Active ENCOUNTERS Encounter Location Date Diagnosis [facility] [address] [facility] [id number] [address] Oct, [facility] [address], [place] [address] Oct, [facility] [address], [place] [address] Oct, [facility] [address], [place] [address] Sep, Pneumonia of left lower lobe due to infectious organism J18.1 [facility] [address] [place] [id number] [place] [address] 14874- 4225 Sep, [facility] [address] [place] [id number] [place] [address] 43584- 3319 Sep, [facility] [address] [id number] [place] [address] 84584- 3749 Sep, [facility] [address] [place] [id number] [place] [address] 58933- 0769 Sep, [facility] [address] [place] [id number] [place] [address] 03500- 9939 Sep, [facility] [address] [place] [id number] [place] [address] 36370- 2871 Sep, Chest congestion R09.89 [facility] [address] [id number] [place] [address] 07851- 2788 Sep, [facility] [address] [place] [id number] [place] [address] 08186- 9121 Sep, Chest congestion R09.89 [facility] [address] [place] [id number] [place] [address] 21619- 7155 Aug, [facility] [address] [place] [id number] [place] [address] 47673- 5205 Jul, [facility] [address] [id number] [place] [address] 96824- 5525 Jul, 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 ; Malignant neoplasm of unspecified site of right female breast C50.911 ; Jaw pain R68.84 and Moderate episode of recurrent major depressive disorder F33.1 [facility] [id number] [place] [address] 03398 -9700 Jan, Rash R21 and Hordeolum externum of right lower eyelid H00.012 [facility] [id number] [place] [address] 78154- 7952 Jan, [facility] WALK [facility] [place] [address] [place] [id number] [place] [address] 27579 -3510 Nov, Acute non-recurrent frontal sinusitis J01.10 [facility] [address] [place] [id number] [place] [address] 19160- 1534 Jul, [place] [address] 7[address]12- 6860 Jul, [place] [address] [place] [id number] [place] [address] 95645- 7281 Jul, Neuropathy of right foot G57.91 ; Tobacco abuse Z72.0 and Breast cancer, right C50.911 [place] [address] [place] [id number] [place] [address] [id number] May, [facility] WALK IN [address] [address]57 May, Seasonal allergic rhinitis, unspecified allergic rhinitis trigger J30.2 [facility] WALK IN [place] [id number] [place] [address] 58321 -9930 Apr, Acute bacterial conjunctivitis of right eye H10.31 [place] [address] [place] [id number] [place] [address] 86670- 2289 22 Mar, 2016 Malignant neoplasm of right female breast, unspecified site of breast C50.911 ; Acute nasopharyngitis J00 and Bipolar 1 disorder, depressed F31.9 [facility] WALK [place] [id number] [place] [address] 88782 -2208 Mar, Subacute frontal sinusitis J01.10 and Cough R05 [facility] WALK IN [place] [id number] [place] [address] 03147 -9565 14 Mar, 2016 Acute non-recurrent maxillary sinusitis J01.00 [facility]ARE [address] [place] [id number] [place] [address] 34791 -5346 10 Mar, 2016 Seasonal allergic rhinitis, unspecified allergic rhinitis trigger J30.2 [facility] [address], [place] [address] 125[address] Mar, [facility] [address] [place] [id number] [place] [address] 27703- 2312 Feb, Bipolar disorder, unspecified F31.9 [facility] [id number] [place] [address] 69182- 8623 Feb, [facility] [address] [id number] [id number] Jan, [facility] [address] [id number] [id number] Oct, [facility] [address] [id number] [id number] Oct, [facility] [address] [id number] [id number] Feb, [facility] [address] [id number] [id number] Feb, Bipolar 1 disorder F31.9 ; COPD (chronic obstructive pulmonary disease) J44.9 ; Breast cancer, right C50.911 ; Tachycardia R00.0 and Benign essential hypertension I10 [facility] [address], [place] [address] Jan, Sebaceous cyst L72.3 [place] [address] [place] [id number] [place] [address] 03673- 4517 Jan, [facility] [address] [place] [id number] [place] [address] 74942- 2606 Jan, Malignant neoplasm of right female breast, unspecified site of breast C50.911 [facility] [address] [place] [id number] [place] [address] 18154- 7463 Jan, [facility] [address], [place] [address] 5007 Jan, [facility] [address] [place] [id number] [place] [address] 46057- 9152 Jan, Sebaceous cyst L72.3 [place] [address] 25068- 4972 Dec, [place] [address] [place] [id number] [place] [address] 56093- 3737 Dec, Abnormal mammogram R92.8 and Breast mass N63 [place] [address] 78730- 2394 Dec, Breast pain, right N64.[address] 06921- 1793 Dec, COPD (chronic obstructive pulmonary disease) J44.9 ; Weight gain R63.5 and Encounter for weight loss counseling Z71.[address] 34696- 2916 Dec, [place] [address] 14665- 9589 Nov, Sebaceous cyst L72.[address] 71308- 8652 Oct, Skin lesion of right arm 709.9 and Localized swelling, mass , and lump of head 784.2 [place] [id number] [place] [address] 87381- 9878 Oct, [place] [address] 43752- 7207 Oct, [place] [id number] [place] [address] 54477- 6975 18 Oct, 2014 Routine adult health maintenance V70.0 and Fatigue 780.79 [place] [id number] [place] [address] 15959- 6892 16 Oct, 2014 Routine adult health maintenance V70.0 ; COPD (chronic obstructive pulmonary disease) 496 ; Arthritis of both hips 716.95 ; Fatigue 780.79 and Localized swelling, mass, and lump of head 784.2 [facility] [address] [facility] [id number] [place] [address] 6[address] Oct, [facility] [address] [facility] [id number] [place] [address] Sep, COPD (chronic obstructive pulmonary disease) 496 and Bipolar disorder 296.80 IMMUNIZATIONS No Known Immunizations SOCIAL HISTORY Never Assessed REASON FOR VISIT Via [facility] ER visit for pneumonia (09/25/2017), SHERYL [employer] PLAN OF CARE Activity Details Follow Up prn Reason: VITAL SIGNS Height 65.5 in 2017-09-29 Weight 151.2 lbs 2017-09-29 Temperature 98.3 degrees Fahrenheit 2017-09-29 Heart Rate 84 bpm 2017-09-29 Respiratory Rate 18 2017-09-29 BMI 24.78 kg/m2 2017-09-29 Blood pressure systolic 148 mmHg 2017-09-29 Blood pressure diastolic 96 mmHg 2017-09-29 MEDICATIONS Medication Instructions Dosage Frequency Start Date End Date Duration Status Ipratropium-Albuterol 0.5-2.5 (3) MG/3ML Inhalation every 6 hrs 3 ml 6h Sep, Active Cefdinir 300 MG Orally Once a day 1 capsule 24h Active Azithromycin 500 MG Orally Once a day for 5 days 1 tablet Sep, Sep, Active Omeprazole 20 MG Orally Once a day 1 capsule 24h Active Morphine Sulfate 15 MG Orally every 4-6 hours as needed 1-2 tablet as needed Active RESULTS No Results PROCEDURES No Known [...] History surgeries Hospitalization History Fever of unknown origin-[facility] 05/24/16
--- OUTSIDE RECORDS SUMMARY | 2018-03-18 21:30 | XMS REPORT ---
Author Author ABAD MURRAY [facility] Address [address] [place] [address] Care Team Providers Care Testing And Regulating Technician Name Role Phone ABAD MURRAY Unavailable PROBLEMS Type Condition ICD9-CM Code JVA22-BP Code Onset Dates Condition Status SNOMED Code Problem COPD (chronic obstructive pulmonary disease) J44.9 Active 61266132 Problem Benign essential hypertension I10 Active 2000147 Problem Arthritis of both hips M12.9 Active 16927504 Problem 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 Active 93307307 Problem Malignant neoplasm of unspecified site of right female breast C50.911 Active 132237925 Problem Tobacco abuse Z72.0 Active 118465324 Problem Neuropathy of right foot G57.91 Active 756578803 Problem Bipolar 1 disorder, depressed F31.9 Active 82707001 Problem Bipolar disorder, unspecified F31.9 Active 59515280 Problem Seasonal allergic rhinitis, unspecified allergic rhinitis trigger J30.2 Active 979639545 Problem Malignant neoplasm of right female breast, unspecified site of breast C50.911 Active 067481914 ALLERGIES No Information ENCOUNTERS Encounter Location Date Diagnosis [place] [address], [place] [address] Oct, [facility] [id number] [place] [address] 49264- 0982 Oct, [facility] [address], [place] [address] 8[address] Sep, Pneumonia of left lower lobe due to infectious organism J18.1 [facility] [address] [place] [address] 00006- 8445 Sep, [facility] [address], [place] [address]- 1287 Sep, [facility] [address], [place] [address]- 5708 Sep, [facility] [address] [place] [id number] [place] [address] 52935- 0465 Sep, [facility] [address] [place] [id number] [place] [address] 96048- 3925 Sep, [facility] [address] [place] [id number] [place] [address] 81863- 5085 Sep, Chest congestion R09.89 [facility] [address] [place] [id number] [place] [address] 21073- 9370 Sep, [facility] [address] [place] [id number] [place] [address] 76546- 3754 Sep, Chest congestion R09.89 [facility] [address] [place] [id number] [place] [address] 04011- 0906 Aug, [facility] [address] [place] [id number] [place] [address] 56852- 3269 Jul, [facility] [address] [place] [id number] [place] [address] 58085- 6282 Jul, 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 and Malignant neoplasm of unspecified site of right female breast C50.911 [facility] [address] [place] [id number] [place] [address] 19692 -3494 Jan, Rash R21 and Hordeolum externum of right lower eyelid H00.012 [facility] [address] [place] [address] 43295- 8727 Jan, [facility] [address] [place] [id number] [place] [address] 29506 -5092 Nov, Acute non-recurrent frontal sinusitis J01.10 [facility] [address] [place] [id number] [place] [address] 04208- 4222 Jul, [facility] [address] [place] [id number] [place] [address] 66181- 3818 Jul, [facility] [address] [place] [id number] [place] [address] 22851- 8464 Jul, Neuropathy of right foot G57.91 ; Tobacco abuse Z72.0 and Breast cancer, right C50.911 [facility] [address] [place] [id number] [place] [address] [id number] May, [facility] WALK IN [address] 81515 -[address]75 May, Seasonal allergic rhinitis, unspecified allergic rhinitis trigger J30.2 [facility] W[facility] IN [address] 99504 -5825 Apr, Acute bacterial conjunctivitis of right eye H10.[address] 62619- 5078 22 Mar, 2016 Malignant neoplasm of right female breast, unspecified site of breast C50.911 ; Acute nasopharyngitis J00 and Bipolar 1 disorder, depressed F31.9 [facility] W[facility] IN [address] 56912 -6033 Mar, Subacute frontal sinusitis J01.10 and Cough R05 [facility]ALK IN [place] [id number] [place] [address] 42810 -2070 14 Mar, 2016 Acute non-recurrent maxillary sinusitis J01.00 [facility] [place] [id number] [place] [address] 22693 -0968 10 Mar, 2016 Seasonal allergic rhinitis, unspecified allergic rhinitis trigger J30.2 [facility] [address] [place] [id number] [place] [address] 09816- 1861 Mar, [address] 34073- 5624 Feb, Bipolar disorder, unspecified F31.9 [place] [id number] [place] [address] 01832- 3119 Feb, [facility] [address] [id number] [id number] Jan, [facility] [id number] [id number] Oct, [facility] [id number][place] [id number] Oct, [facility] [address] [id number][place] [id number] Feb, [facility] [address] [id number] [id number] Feb, Bipolar 1 disorder F31.9 ; COPD (chronic obstructive pulmonary disease) J44.9 ; Breast cancer, right C50.911 ; Tachycardia R00.0 and Benign essential hypertension I10 [facility] [address] [place] [id number] [place] [address] 19718- 8112 Jan, Sebaceous cyst L72.3 [facility] [address] [place] [id number] [place] [address] 13407- 3543 Jan, [facility] [address] [place] [id number] [place] [address] 66554- 5345 Jan, Malignant neoplasm of right female breast, unspecified site of breast C50.911 [facility] [address] [place] [id number] [place] [address] 02109- 0995 Jan, [facility] [address] [place] [id number] [place] [address] 89483- 0125 Jan, [facility] [address] [place] [id number] [place] [address] 89649- 3590 Jan, Sebaceous cyst L72.3 [facility] [address] [place] [id number] [place] [address] 97198- 1717 Dec, [facility] [address] [place] [id number] [place] [address] 84225- 2617 Dec, Abnormal mammogram R92.8 and Breast mass N63 [facility] [address] [place] [id number] [place] [address] 27626- 9751 Dec, Breast pain, right N64.[address] 83980- 1377 Dec, COPD (chronic obstructive pulmonary disease) J44.9 ; Weight gain R63.5 and Encounter for weight loss counseling Z71.[address] 99633- 4870 Dec, [place] [address] 88305- 8344 Nov, Sebaceous cyst L72.[address] 33010- 2318 Oct, Skin lesion of right arm 709.9 and Localized swelling, mass , and lump of head 784.[address] 10274- 7639 Oct, [place] [address] [place] [id number] [place] [address] 53947- 8155 Oct, [place] [id number] [place] [address] 55668- 3841 Oct, Routine adult health maintenance V70.0 and Fatigue 780.79 [place] [id number] [place] [address] 94760- 3024 16 Oct, 2014 Routine adult health maintenance V70.0 ; COPD (chronic obstructive pulmonary disease) 496 ; Arthritis of both hips 716.95 ; Fatigue 780.79 and Localized swelling, mass, and lump of head 784.[address] 94800- 9425 Oct, [place] [id number] [place] [address] 82573- 3829 Sep, COPD (chronic obstructive pulmonary disease) 496 [...] Hospitalization History Fever of unknown origin-[facility] 05/24/16
--- OUTSIDE RECORDS SUMMARY | 2018-03-18 21:30 | XMS REPORT ---
Author Author ABAD MURRAY [facility] Address [address] [place] [address] Care Team Providers Care Lunchroom Mother Name Role Phone ABAD MURRAY Unavailable PROBLEMS Type Condition ICD9-CM Code UVC75-QL Code Onset Dates Condition Status SNOMED Code Problem Arthritis of both hips M12.9 Active 81103806 Problem Bipolar disorder, unspecified F31.9 Active 58675608 Problem Benign essential hypertension I10 Active 9800152 Problem 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 Active 33445382 Problem Malignant neoplasm of unspecified site of right female breast C50.911 Active 694784591 Problem COPD (chronic obstructive pulmonary disease) J44.9 Active 55563792 Problem Moderate episode of recurrent major depressive disorder F33.1 Active 784243571 Problem Neuropathy of right foot G57.91 Active 919467170 Problem Malignant neoplasm of right female breast, unspecified site of breast C50.911 Active 960621786 Problem Bipolar 1 disorder, depressed F31.9 Active 42306021 Problem Tobacco abuse Z72.0 Active 029196333 Problem Seasonal allergic rhinitis, unspecified allergic rhinitis trigger J30.2 Active 706328931 ALLERGIES No Information ENCOUNTERS Encounter Location Date Diagnosis [facility] [id number] [place] [address] 40934- 5900 Oct, [facility] [id number] [place] [address] 48917- 6340 Oct, [facility] [id number] [place] [address] 04628- 7878 Sep, Pneumonia of left lower lobe due to infectious organism J18.1 [facility] [address] [place] [address] 99627- 1287 Sep, [facility] [id number] [place] [address] 71955- 4718 Sep, [facility] [id number] [place] [address] 11331- 9929 Sep, [facility] [id number] [place] [address] 49197- 4445 Sep, [facility] [id number] [place] [address] 72691- 4967 Sep, [facility] [id number] [place] [address] 89661- 0151 Sep, Chest congestion R09.89 [facility] [id number] [place] [address] 00561- 1814 Sep, [facility] [id number] [place] [address] 94975- 2703 Sep, Chest congestion R09.89 [facility] [id number] [place] [address] 39958- 1015 Aug, [facility] [id number] [place] [address] 37789- 3088 Jul, [facility] [id number] [place] [address] 70272- 1726 Jul, 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 ; Malignant neoplasm of unspecified site of right female breast C50.911 ; Jaw pain R68.84 and Moderate episode of recurrent major depressive disorder F33.1 [facility] [id number] [place] [address] 83806 -1804 Jan, Rash R21 and Hordeolum externum of right lower eyelid H00.012 [facility] [id number] [place] [address] 58335- 0745 Jan, [facility] [id number] [place] [address] 68244 -5994 Nov, Acute non-recurrent frontal sinusitis J01.10 [facility] [id number] [place] [address] 09283- 8293 Jul, [place] [id number] [place] [address] 30890- 1013 Jul, [place] [place] [id number] [place] [address] 53750- 1347 Jul, Neuropathy of right foot G57.91 ; Tobacco abuse Z72.0 and Breast cancer, right C50.911 [facility] [address] [id number] May, [facility] [place] [id number] [place] [address] 03427 -6928 May, Seasonal allergic rhinitis, unspecified allergic rhinitis trigger J30.2 [facility] [place] [id number] [place] [address] 46594 -4062 Apr, Acute bacterial conjunctivitis of right eye H10.31 [place] [address] 78398- 2859 Mar, Malignant neoplasm of right female breast, unspecified site of breast C50.911 ; Acute nasopharyngitis J00 and Bipolar 1 disorder, depressed F31.9 [facility] [place] [id number] [place] [address] 42122 -2262 Mar, Subacute frontal sinusitis J01.10 and Cough R05 [facility] [place] [id number] [place] [address] 00829 -2041 14 Mar, 2016 Acute non-recurrent maxillary sinusitis J01.00 [facility] [address] [place] [id number] [place] [address] 88431 -4168 Mar, Seasonal allergic rhinitis, unspecified allergic rhinitis trigger J30.2 [place] [id number] [place] [address] 97950- 2810 03 Mar, 2016 [place] [id number] [place] [address] 43495- 9796 Feb, Bipolar disorder, unspecified F31.9 [facility] [address] [address] 1396 Feb, [facility] [address] [id number] [id number] Jan, [facility] [address] [id number] [id number] Oct, [facility] [address] [id number] [id number] Oct, [facility] [address] [id number] [id number] Feb, [facility] [id number] [id number] Feb, Bipolar 1 disorder F31.9 ; COPD (chronic obstructive pulmonary disease) J44.9 ; Breast cancer, right C50.911 ; Tachycardia R00.0 and Benign essential hypertension I10 [facility] [id number] [place] [address] 93661- 1603 Jan, Sebaceous cyst L72.3 [facility] [id number] [place] [address] 18467- 0492 Jan, [facility] [id number] [place] [address] 27395- 3943 Jan, Malignant neoplasm of right female breast, unspecified site of breast C50.911 [facility] [id number] [place] [address] 73658- 0997 Jan, [facility] [id number] [place] [address] 67882- 4753 Jan, [facility] [id number] [place] [address] 93154- 0413 Jan, Sebaceous cyst L72.3 [facility] [id number] [place] [address] 97623- 5719 Dec, [facility] [id number] [place] [address] 75414- 4388 Dec, Abnormal mammogram R92.8 and Breast mass N63 [place] [id number] [place] [address] 36109- 2138 Dec, Breast pain, right N64.4 [place] [id number] [place] [address] 13997- 3713 Dec, COPD (chronic obstructive pulmonary disease) J44.9 ; Weight gain R63.5 and Encounter for weight loss counseling Z71.3 [place] [address] 37544- 2909 Dec, [place] [address] 87015- 9835 Nov, Sebaceous cyst L72.3 [place] [id number] [place] [address] 21787- 4748 Oct, Skin lesion of right arm 709.9 and Localized swelling, mass , and lump of head 784.2 [place] [facility] [id number] [place] [address] 70066- 9861 Oct, [place] [address] 71811- 6746 Oct, [facility] [id number] [place] [address] 67786- 9460 Oct, Routine adult health maintenance V70.0 and Fatigue 780.79 [place] [facility] [id number] [place] [address] 01294- 9314 16 Oct, 2014 Routine adult health maintenance V70.0 ; COPD (chronic obstructive pulmonary disease) 496 ; Arthritis of both hips 716.95 ; Fatigue 780.79 and Localized swelling, mass, and lump of head 784.2 [place] [id number] [place] [address] 69697- 0618 Oct, [place] [address] 20325- 7733 Sep, COPD (chronic obstructive pulmonary disease) 496 and Bipolar disorder 296.80 IMMUNIZATIONS No Known Immunizations SOCIAL HISTORY Never Assessed REASON FOR VISIT Xray ordered PLAN OF CARE VITAL SIGNS MEDICATIONS Unknown [...] History surgeries Hospitalization History Fever of unknown origin-[facility] 05/24/16
--- OUTSIDE RECORDS SUMMARY | 2018-03-18 21:30 | XMS REPORT ---
Author Author ABAD MURRAY [facility] Address [address] [place] [address] Care Team Providers Care Filter Press Supervisor Name Role Phone ABAD MURRAY Unavailable PROBLEMS Type Condition ICD9-CM Code FKB17-KI Code Onset Dates Condition Status SNOMED Code Problem COPD (chronic obstructive pulmonary disease) J44.9 Active 11001984 Problem Benign essential hypertension I10 Active 4817855 Problem Arthritis of both hips M12.9 Active 19671819 Problem 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 Active 02262888 Problem Malignant neoplasm of unspecified site of right female breast C50.911 Active 059640138 Problem Tobacco abuse Z72.0 Active 713277811 Problem Neuropathy of right foot G57.91 Active 381211201 Problem Bipolar 1 disorder, depressed F31.9 Active 31331153 Problem Bipolar disorder, unspecified F31.9 Active 18107328 Problem Seasonal allergic rhinitis, unspecified allergic rhinitis trigger J30.2 Active 596234736 Problem Malignant neoplasm of right female breast, unspecified site of breast C50.911 Active 466583243 ALLERGIES No Information ENCOUNTERS Encounter Location Date Diagnosis [place] [address] [address]2 Oct, [facility] [address] [place] [address] 79189- 2956 Oct, [facility] [address] [address] 4908 Sep, Pneumonia of left lower lobe due to infectious organism J18.1 [facility] [address] [place] [address] 30904- 0613 Sep, [facility] [address] [address]- 6053 Sep, [facility] [address] [address]- 2887 Sep, [facility] [address] [place] [id number] [place] [address] 70185- 9325 Sep, [facility] [id number] [place] [address] 05761- 5245 Sep, [facility] [id number] [place] [address] 42175- 9745 Sep, Chest congestion R09.89 [facility] [id number] [place] [address] 91901- 7943 Sep, [facility] [id number] [place] [address] 40008- 8734 Sep, Chest congestion R09.89 [facility] [id number] [place] [address] 34634- 2509 Aug, [facility] [id number] [place] [address] 50121- 2087 Jul, [facility] [id number] [place] [address] 76290- 8289 Jul, 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 and Malignant neoplasm of unspecified site of right female breast C50.911 [facility] [id number] [place] [address] 64710 -6129 Jan, Rash R21 and Hordeolum externum of right lower eyelid H00.012 [facility] [address] [place] [address] 90881- 3824 Jan, [facility] [id number] [place] [address] 96512 -0511 Nov, Acute non-recurrent frontal sinusitis J01.10 [facility] [id number] [place] [address] 17228- 8527 Jul, [facility] [id number] [place] [address] 86339- 2976 Jul, [facility] [id number] [place] [address] 96975- 9298 Jul, Neuropathy of right foot G57.91 ; Tobacco abuse Z72.0 and Breast cancer, right C50.911 [facility] [address] [id number] [place] [address] [id number] May, [facility] [address] 43754 -7398 May, Seasonal allergic rhinitis, unspecified allergic rhinitis trigger J30.2 [facility] [address] 40941 -8603 Apr, Acute bacterial conjunctivitis of right eye H10.[address] 86589- 7256 22 Mar, 2016 Malignant neoplasm of right female breast, unspecified site of breast C50.911 ; Acute nasopharyngitis J00 and Bipolar 1 disorder, depressed F31.9 [facility] [address] 69856 -3284 Mar, Subacute frontal sinusitis J01.10 and Cough R05 [facility] [place] [id number] [place] [address] 51475 -2917 14 Mar, 2016 Acute non-recurrent maxillary sinusitis J01.00 [facility] [place] [id number] [place] [address] 19697 -4958 10 Mar, 2016 Seasonal allergic rhinitis, unspecified allergic rhinitis trigger J30.2 [facility] [id number] [place] [address] 42413- 6552 Mar, [address] 56283- 3310 Feb, Bipolar disorder, unspecified F31.9 [place] [id number] [place] [address] 61506- 0695 Feb, [facility] [address] [id number] [id number] Jan, [facility] [address] [id number] [id number] Oct, [facility] [id number][place] [id number] Oct, [facility] [id number][place] [id number] Feb, [facility] [address] [id number][place] [id number] Feb, Bipolar 1 disorder F31.9 ; COPD (chronic obstructive pulmonary disease) J44.9 ; Breast cancer, right C50.911 ; Tachycardia R00.0 and Benign essential hypertension I10 [facility] [id number] [place] [address] 24147- 5368 Jan, Sebaceous cyst L72.3 [facility] [id number] [place] [address] 98771- 1239 Jan, [facility] [id number] [place] [address] 09085- 2213 Jan, Malignant neoplasm of right female breast, unspecified site of breast C50.911 [facility] [id number] [place] [address] 70329- 0593 Jan, [facility] [id number] [place] [address] 43549- 2721 Jan, [facility] [id number] [place] [address] 10316- 6740 Jan, Sebaceous cyst L72.3 [facility] [id number] [place] [address] 52673- 1881 Dec, [facility] [id number] [place] [address] 92178- 6387 Dec, Abnormal mammogram R92.8 and Breast mass N63 [facility] [id number] [place] [address] 56041- 0356 Dec, Breast pain, right N64.[address] 69688- 9378 Dec, COPD (chronic obstructive pulmonary disease) J44.9 ; Weight gain R63.5 and Encounter for weight loss counseling Z71.[address] 94436- 2433 Dec, [place] [address] 57261- 8998 Nov, Sebaceous cyst L72.[address] 00056- 9243 Oct, Skin lesion of right arm 709.9 and Localized swelling, mass , and lump of head 784.[address] 59306- 7300 Oct, [place] [address] [address] [id number] [place] [address] 73897- 6409 Oct, [place] [id number] [place] [address] 75044- 0643 Oct, Routine adult health maintenance V70.0 and Fatigue 780.79 [place] [id number] [place] [address] 69736- 1396 16 Oct, 2014 Routine adult health maintenance V70.0 ; COPD (chronic obstructive pulmonary disease) 496 ; Arthritis of both hips 716.95 ; Fatigue 780.79 and Localized swelling, mass, and lump of head 784.[address] 22979- 4026 Oct, [place] [id number] [place] [address] 48946- 1544 Sep, COPD (chronic obstructive pulmonary disease) 496 [...] History surgeries Hospitalization History Fever of unknown origin-[facility] 05/24/16
--- OUTSIDE RECORDS SUMMARY | 2018-03-18 21:30 | XMS REPORT ---
Author Author ABAD MURRAY [facility] Address [address] [place] [address] Care Team Providers Care Avionics Technician Name Role Phone ABAD MURRAY Unavailable PROBLEMS Type Condition ICD9-CM Code [id number]-GF Code Onset Dates Condition Status SNOMED Code Problem Arthritis of both hips M12.9 Active 02082812 Problem Bipolar disorder, unspecified F31.9 Active 44992462 Problem Benign essential hypertension I10 Active 6064332 Problem 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 Active 68235804 Problem Malignant neoplasm of unspecified site of right female breast C50.911 Active 542443078 Problem COPD (chronic obstructive pulmonary disease) J44.9 Active 32339219 Problem Moderate episode of recurrent major depressive disorder F33.1 Active 586684452 Problem Neuropathy of right foot G57.91 Active 735134508 Problem Malignant neoplasm of right female breast, unspecified site of breast C50.911 Active 787204861 Problem Bipolar 1 disorder, depressed F31.9 Active 89650832 Problem Tobacco abuse Z72.0 Active 198548865 Problem Seasonal allergic rhinitis, unspecified allergic rhinitis trigger J30.2 Active 448436272 ALLERGIES No Information ENCOUNTERS Encounter Location Date Diagnosis [facility], [place] [id number] [place] [address] 04713- 0833 Oct, [facility], [place] [id number] [place] [address] 47247- 2550 Oct, [facility], [place] [id number] [place] [address] 22194- 6155 Sep, Pneumonia of left lower lobe due to infectious organism J18.1 [facility], [place] [id number] [place] [address] 77911- 6746 Sep, [facility], [place] [id number] [place] [address] 84243- 6774 Sep, [facility], [place] [id number] [place] [address] 97464- 4771 Sep, [facility], [place] [id number] [place] [address] 03633- 3303 Sep, [facility], [place] [id number] [place] [address] 74164- 6311 Sep, [facility], [place] [id number] [place] [address] 94520- 4708 Sep, Chest congestion R09.89 [facility], [place] [id number] [place] [address] 43448- 7765 Sep, [facility], [place] [id number] [place] [address] 16123- 9820 Sep, Chest congestion R09.89 [facility], [place] [id number] [place] [address] 38784- 2133 Aug, [facility], [place] [id number] [place] [address] 40949- 3443 Jul, [facility], [place] [id number] [place] [address] 65643- 1330 Jul, 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 ; Malignant neoplasm of unspecified site of right female breast C50.911 ; Jaw pain R68.84 and Moderate episode of recurrent major depressive disorder F33.1 [facility] [id number] [place] [address] 48185 -4976 Jan, Rash R21 and Hordeolum externum of right lower eyelid H00.012 [facility], [place] [id number] [place] [address] 73665- 7276 Jan, [facility] [id number] [place] [address] 96017 -4244 Nov, Acute non-recurrent frontal sinusitis J01.10 [facility], [place] [id number] [place] [address] 21035- 0069 Jul, [place] [id number] [place] [address] 22247- 4703 Jul, [place] [id number] [place] [address] 14282- 7355 Jul, Neuropathy of right foot G57.91 ; Tobacco abuse Z72.0 and Breast cancer, right C50.911 [facility] [address] [id number] May, [facility] [place] [id number] [place] [address] 15920 -1077 May, Seasonal allergic rhinitis, unspecified allergic rhinitis trigger J30.2 [facility] [place] [id number] [place] [address] 29094 -7690 Apr, Acute bacterial conjunctivitis of right eye H10.31 [place] [address] 87248- 6021 Mar, Malignant neoplasm of right female breast, unspecified site of breast C50.911 ; Acute nasopharyngitis J00 and Bipolar 1 disorder, depressed F31.9 [facility] [place] [id number] [place] [address] 44997 -0920 Mar, Subacute frontal sinusitis J01.10 and Cough R05 [facility] [place] [id number] [place] [address] 90807 -8731 14 Mar, 2016 Acute non-recurrent maxillary sinusitis J01.00 [facility] [address] [place] [id number] [place] [address] 15405 -8937 Mar, Seasonal allergic rhinitis, unspecified allergic rhinitis trigger J30.2 [place] [id number] [place] [address] 73515- 7806 03 Mar, 2016 [place] [id number] [place] [address] 71653- 2639 Feb, Bipolar disorder, unspecified F31.9 [facility], [place] [address] [address] Feb, [facility] [address] [id number] [place] [id number] Jan, [facility] [address] [id number] [place] [id number] Oct, [facility] [address] [id number] [place] [id number] Oct, [facility] [address] [id number] [place] [id number] Feb, [facility] [address] [id number] [place] [id number] Feb, Bipolar 1 disorder F31.9 ; COPD (chronic obstructive pulmonary disease) J44.9 ; Breast cancer, right C50.911 ; Tachycardia R00.0 and Benign essential hypertension I10 [facility] [place] [id number] [place] [address] 07891- 8422 Jan, Sebaceous cyst L72.3 [facility], [place] [id number] [place] [address] 12389- 5107 Jan, [facility] [place] [id number] [place] [address] 47985- 2597 Jan, Malignant neoplasm of right female breast, unspecified site of breast C50.911 [facility] [place] [id number] [place] [address] 23871- 0373 Jan, [facility] [place] [id number] [place] [address] 85376- 6928 Jan, [facility] [place] [id number] [place] [address] 77388- 4870 Jan, Sebaceous cyst L72.3 [facility] [place] [id number] [place] [address] 34027- 4495 Dec, [facility] [place] [id number] [place] [address] 51777- 1026 Dec, Abnormal mammogram R92.8 and Breast mass N63 [place] [id number] [place] [address] 59219- 9256 Dec, Breast pain, right N64.4 [place] [id number] [place] [address] 30119- 7428 Dec, COPD (chronic obstructive pulmonary disease) J44.9 ; Weight gain R63.5 and Encounter for weight loss counseling Z71.3 [place] [address] 89242- 1033 Dec, [place] [address] 41509- 5886 Nov, Sebaceous cyst L72.3 [place] [id number] [place] [address] 04069- 0129 Oct, Skin lesion of right arm 709.9 and Localized swelling, mass , and lump of head 784.2 [place] [id number] [place] [address] 57665- 6086 Oct, [place] [address] 17176- 4614 Oct, [place] [id number] [place] [address] 25525- 4554 Oct, Routine adult health maintenance V70.0 and Fatigue 780.79 [place] [id number] [place] [address] 19605- 2325 16 Oct, 2014 Routine adult health maintenance V70.0 ; COPD (chronic obstructive pulmonary disease) 496 ; Arthritis of both hips 716.95 ; Fatigue 780.79 and Localized swelling, mass, and lump of head 784.2 [place] [id number] [place] [address] 64007- 3892 Oct, [place] [address] 10094- 0048 Sep, COPD (chronic obstructive pulmonary disease) 496 and Bipolar disorder 296.80 IMMUNIZATIONS No Known Immunizations SOCIAL HISTORY Never Assessed REASON FOR VISIT FYI only PLAN OF CARE VITAL SIGNS MEDICATIONS Medication [...] History surgeries Hospitalization History F[facility] of unknown origin[facility] 05/24/16
--- OUTSIDE RECORDS SUMMARY | 2018-03-18 21:39 | XMS REPORT | Continuity of Care Document ---
Author Author [facility] Organization [facility] Address Unknown Phone Unavailable Allergies Active Description Code Type Severity Reaction Onset Reported/Identified Relationship to Patient Clinical Status Yes No Known Drug Allergies [id number] Drug Allergy Unknown N/A 09/27/2014 Medications There is no data. Problems Date Dx Coded Attending Type Code Diagnosis Diagnosed By 09/27/2014 KARLIE ZHU MD Ot 053.9 HERPES ZOSTER NOS 09/27/2014 KARLIE ZHU MD Ot V68.1 ISSUE REPEAT PRESCRIPT 10/11/2014 REGINALDO ANNA MD Ot 692.6 DERMATITIS DUE TO PLANT 10/11/2014 REGINALDO ANNA MD Ot 782.1 NONSPECIF SKIN ERUPT NEC 11/08/2014 DARÍO BURROWS HANDKERCHIEF CUTTER Ot 784.2 11/08/2014 REGINALDO ANNA MD Ot F17.210 NICOTINE DEPENDENCE, CIGARETTES, UNCOMPL 11/08/2014 REGINALDO ANNA MD Ot J44.1 CHRONIC OBSTRUCTIVE PULMONARY DISEASE W 11/08/2014 REGINALDO ANNA MD Ot R06.02 SHORTNESS OF BREATH 11/08/2014 DARÍO BURROWS HANDKERCHIEF CUTTER Ot 784.2 11/19/2014 DARÍO BURROWS HANDKERCHIEF CUTTER Ot 784.2 11/21/2014 KAYLA MELENDEZ APRN Ot [...] Ot R50.9 FEVER, UNSPECIFIED 12/25/2014 KAYLA MELENDEZ HANDKERCHIEF CUTTER Ot F17.210 NICOTINE DEPENDENCE, CIGARETTES, UNCOMPL 12/25/2014 KAYLA MELENDEZ HANDKERCHIEF CUTTER Ot N64.9 DISORDER OF BREAST, UNSPECIFIED 01/09/2015 DARÍO BURROWS HANDKERCHIEF CUTTER Ot N64.4 01/09/2015 DARÍO BURROWS HANDKERCHIEF CUTTER Ot N64.4 01/10/2015 STORMY DARÍO You HANDKERCHIEF CUTTER Ot N64.4 01/10/2015 ROB BURROWSYARELY You HANDKERCHIEF CUTTER Ot N63 01/10/2015 STORMY DARÍO You HANDKERCHIEF CUTTER Ot R92.8 01/14/2015 STORMY DARÍO You HANDKERCHIEF CUTTER Ot N64.4 01/14/2015 STORMY DARÍO You HANDKERCHIEF CUTTER Ot N63 01/14/2015 STORMY DARÍO You HANDKERCHIEF CUTTER Ot R92.8 01/17/2015 STORMY DAÍRO You HANDKERCHIEF CUTTER Ot N64.4 01/17/2015 STORMY DARÍO You HANDKERCHIEF CUTTER Ot N63 01/17/2015 STORMY DARÍO You HANDKERCHIEF CUTTER Ot R92.8 01/17/2015 MARIA LUZ MURRAY, CAM [...] You (DDU) Ot Z02.71 01/22/2015 DARÍO BURROWS HANDKERCHIEF CUTTER Ot N64.4 01/22/2015 DARÍO BURROWS HANDKERCHIEF CUTTER Ot N63 01/22/2015 DARÍO BURROWS HANDKERCHIEF CUTTER Ot R92.8 01/22/2015 GAMALIEL MURRAY, CEE K [...] MD (DDU) Ot Z02.71 01/24/2015 DARÍO BURROWS HANDKERCHIEF CUTTER Ot N64.4 01/24/2015 DARÍO BURROWS HANDKERCHIEF CUTTER Ot N63 01/24/2015 DARÍO BURROWS HANDKERCHIEF CUTTER Ot R92.8 01/24/2015 GAMALIEL MURRAY, CEE K [...] K Ot R92.8 01/24/2015 KITTY SANDRA S COOK FRUIT Ot C50.511 01/24/2015 KITTY SANDRA S COOK FRUIT Ot E66.9 01/24/2015 KITTY SANDRA S COOK FRUIT Ot E78.5 01/24/2015 KARIN TANGAH S COOK FRUIT Ot F17.210 01/24/2015 KITTY SANDRA S COOK FRUIT Ot F31.9 01/24/2015 KARIN TANGSINGH S COOK FRUIT Ot I10 01/24/2015 KARIN TANGSINGH S COOK FRUIT Ot J44.9 01/24/2015 KITTY SANDRA S COOK FRUIT Ot Z17.1 01/24/2015 KITTY SANDRA S COOK FRUIT Ot Z68.35 01/24/2015 KITTY SANDRA S COOK FRUIT Ot Z79.899 01/24/2015 GAMALIEL MURRAY, CEE Pryor Ot R92.8 01/24/2015 KITTY SANDRA S COOK FRUIT Ot C50.511 01/24/2015 KARIN TANGSINGH S COOK FRUIT Ot E66.9 01/24/2015 KARIN TANGSINGH S COOK FRUIT Ot E78.5 01/24/2015 KITTY SANDRA S COOK FRUIT Ot F17.210 01/24/2015 KITTY SANDRA S COOK FRUIT Ot F31.9 01/24/2015 KITTY SANDRA S COOK FRUIT Ot I10 01/24/2015 KARIN TANGSINGH S COOK FRUIT Ot J44.9 01/24/2015 KARIN TANGSINGH S COOK FRUIT Ot Z17.1 01/24/2015 KARIN TANGSINGH S COOK FRUIT Ot Z68.35 01/24/2015 KARIN TANGSINGH S COOK FRUIT Ot Z79.899 01/24/2015 GAMALIEL MURRAY, CEE K [...] CEE Pryor Ot Z79.899 01/24/2015 DARÍO BURROWS HANDKERCHIEF CUTTER Ot N63 01/24/2015 DARÍO BURROWS HANDKERCHIEF CUTTER Ot R92.8 01/24/2015 DARÍO BURROWS HANDKERCHIEF CUTTER Ot N64.4 01/24/2015 SHERRY ROGEL MD (DDU) Ot Z02.71 01/24/2015 DARÍO BURROWS HANDKERCHIEF CUTTER Ot N64.4 01/24/2015 DARÍO BURROWS HANDKERCHIEF CUTTER Ot N63 01/24/2015 DARÍO BURROWS HANDKERCHIEF CUTTER Ot R92.8 01/24/2015 GAMALIEL MURRAY, CEE Konstantin [...] SANDRA TANG Ot C50.511 01/24/2015 SANDRA TANG COOK FRUIT Ot E66.9 01/24/2015 SANDRA TANG COOK FRUIT Ot E78.5 01/24/2015 SANDRA TANG COOK FRUIT Ot F17.210 01/24/2015 SANDRA TANG COOK FRUIT Ot F31.9 01/24/2015 SANDRA TANG COOK FRUIT Ot I10 01/24/2015 SANDRA TANG COOK FRUIT Ot J44.9 01/24/2015 SANDRA TANG S COOK FRUIT Ot Z17.1 01/24/2015 SANDRA TANG S COOK FRUIT Ot Z68.35 01/24/2015 SANDRA TANG COOK FRUIT Ot Z79.899 02/13/2015 GAMALIEL MURRAY, CEE Pryor Ot C50.511 02/13/2015 GAMALIEL MURRAY, CEE Pryor Ot Z51.81 02/13/2015 GAMALIEL MURRAY, CEE Pryor Ot Z79.899 02/13/2015 GAMALIEL MURRAY, CEE Pryor Ot C50.511 02/13/2015 GAMALIEL MURRAY, CEE Pryor Ot Z51.81 02/13/2015 GAMALIEL MURRAY, CEE Pryor Ot Z79.899 02/17/2015 PEBBLES MURRAY, SHERRY You (DDU) Ot Z02.71 02/17/2015 DARÍO BURROWS HANDKERCHIEF CUTTER Ot N64.4 02/17/2015 DARÍO BURROWS HANDKERCHIEF CUTTER Ot N63 02/17/2015 DARÍO BURROWS HANDKERCHIEF CUTTER Ot R92.8 02/17/2015 GAMALIEL MURRAY, CEE Pryor [...] MURRAY, CEE Pryor Ot R92.8 02/17/2015 TANGSANDRA COOK FRUIT Ot C50.511 02/17/2015 TANG, SANDRA S COOK FRUIT Ot E66.9 02/17/2015 TANG, HILAH S COOK FRUIT Ot E78.5 02/17/2015 TANG, HILAH S COOK FRUIT Ot F17.210 02/17/2015 TANG, HILAH S COOK FRUIT Ot F31.9 02/17/2015 TANG, HILAH S COOK FRUIT Ot I10 02/17/2015 TANG, HILAH S COOK FRUIT Ot J44.9 02/17/2015 TANG, HILAH S COOK FRUIT Ot Z17.1 02/17/2015 KITTY SANDRA S COOK FRUIT Ot Z68.35 02/17/2015 KITTYSANDRA S COOK FRUIT Ot Z79.899 02/17/2015 GAMALIEL MURRAY, CEE Pryor [...] You (DDU) Ot Z02.71 03/17/2015 DARÍO BURROWS HANDKERCHIEF CUTTER Ot N64.4 03/17/2015 DARÍO BURROWS HANDKERCHIEF CUTTER Ot N63 03/17/2015 DARÍO BURROWS HANDKERCHIEF CUTTER Ot R92.8 03/17/2015 GAMALIEL MURRAY, CEE Pryor [...] CEE Pryor Ot R92.8 03/17/2015 SANDRA TANG COOK FRUIT Ot C50.511 03/17/2015 SANDRA TANG S COOK FRUIT Ot E66.9 03/17/2015 SANDRA TANG S COOK FRUIT Ot E78.5 03/17/2015 KARIN TANGSINGH S COOK FRUIT Ot F17.210 03/17/2015 SANDRA TANG S COOK FRUIT Ot F31.9 03/17/2015 SANDRA TANG S COOK FRUIT Ot I10 03/17/2015 SANDRA TANG S COOK FRUIT Ot J44.9 03/17/2015 SANDRA TANG S COOK FRUIT Ot Z17.1 03/17/2015 SANDRA TANG S COOK FRUIT Ot Z68.35 03/17/2015 SANDRA TANG S COOK FRUIT Ot Z79.899 03/17/2015 GAMALIEL MURRAY, CEE Pryor [...] You (DDU) Ot Z02.71 03/20/2015 DARÍO BURROWS HANDKERCHIEF CUTTER Ot N64.4 03/20/2015 DARÍO BURROWS HANDKERCHIEF CUTTER Ot N63 03/20/2015 DARÍO BURROWS HANDKERCHIEF CUTTER Ot R92.8 03/20/2015 GAMALIEL MURRAY, CEE K [...] CEE K Ot R92.8 03/20/2015 SANDRA TANG COOK FRUIT Ot C50.511 03/20/2015 SANDRA TANG COOK FRUIT Ot E66.9 03/20/2015 SANDRA TANG COOK FRUIT Ot E78.5 03/20/2015 SANDRA TANG COOK FRUIT Ot F17.210 03/20/2015 SANDRA TANG COOK FRUIT Ot F31.9 03/20/2015 SANDRA TANG COOK FRUIT Ot I10 03/20/2015 SANDRA TANG COOK FRUIT Ot J44.9 03/20/2015 SANDRA TANG COOK FRUIT Ot Z17.1 03/20/2015 TANG, HILAH S COOK FRUIT Ot Z68.35 03/20/2015 KITTY KARINAH S COOK FRUIT Ot Z79.899 03/20/2015 GAMALIEL MURRAY, CEE K Ot C50.511 03/20/2015 GAMALIEL MURRAY, CEE K Ot Z51.81 03/20/2015 GAMALIEL MURRAY, CEE Pryor Ot Z79.899 03/20/2015 GAMALIEL MURRAY, CEE K Ot C50.511 03/20/2015 MARIA LUZ MURRAY, CAM M Ot C50.911 03/20/2015 MARIA LUZ MURRAY, CAM M Ot Z01.818 03/20/2015 GAMALIEL MURRAY, CEE K Ot C50.511 03/20/2015 KITTY HILAH S COOK FRUIT Ot C50.511 03/20/2015 KARIN TANGAH S COOK FRUIT Ot E66.9 03/20/2015 KITTY HILAH S COOK FRUIT Ot E78.5 03/20/2015 KARIN TANGAH S COOK FRUIT Ot F17.210 03/20/2015 KARIN TANGAH S COOK FRUIT Ot F31.9 03/20/2015 SANDRA TANG S COOK FRUIT Ot I10 03/20/2015 SANDRA TANG S COOK FRUIT Ot J44.9 03/20/2015 SANDRA TANG S COOK FRUIT Ot Z17.1 03/20/2015 KARIN TANGAH S COOK FRUIT Ot Z68.35 03/20/2015 KITTY KARINAH S COOK FRUIT Ot Z79.899 03/20/2015 GAMALIEL MURRAY, CEE K Ot C50.511 03/20/2015 GAMALIEL MURRAY, CEE Pryor Ot Z51.81 03/20/2015 GAMALIEL MURRAY, CEE K Ot Z79.899 03/20/2015 KITTY SANDRA S COOK FRUIT Ot C50.511 03/20/2015 KARIN TANGAH S COOK FRUIT Ot E66.9 03/20/2015 SANDRA TANG S COOK FRUIT Ot E78.5 03/20/2015 KITTY HILAH S COOK FRUIT Ot F17.210 03/20/2015 KITTY HILAH S COOK FRUIT Ot F31.9 03/20/2015 KARIN TANGAH S COOK FRUIT Ot I10 03/20/2015 SANDRA TANG S COOK FRUIT Ot J44.9 03/20/2015 SANDRA TANG S COOK FRUIT Ot Z17.1 03/20/2015 KITTYSANDRA COOK FRUIT Ot Z68.35 03/20/2015 KITTY SANDRA Lazar COOK FRUIT Ot Z79.899 03/20/2015 GAMALIEL MURRAY, CEE Konstantin [...] CEE Konstantin Ot Z79.899 03/20/2015 DARÍO BURROWS HANDKERCHIEF CUTTER Ot N63 03/20/2015 DARÍO BURROWS HANDKERCHIEF CUTTER Ot R92.8 03/20/2015 GAMALIEL MURRAY, CEE Pryor [...] Pryor Ot Z79.899 03/20/2015 BURROWS, DARÍO You HANDKERCHIEF CUTTER Ot N63 03/20/2015 BURROWS, DARÍO You HANDKERCHIEF CUTTER Ot R92.8 03/20/2015 BURROWS, DARÍO You HANDKERCHIEF CUTTER Ot N64.4 03/20/2015 BURROWS, DARÍO A HANDKERCHIEF CUTTER Ot 784.2 03/25/2015 GAMALIEL MURRAY, CEE Konstantin Ot C50.511 03/25/2015 GAMALIEL MURRAY, CEE Konstantin Ot C50.511 03/25/2015 GAMALIEL MURRAY, CEE Pryor Ot Z51.81 03/25/2015 GAMALIEL MURRAY, CEE Konstantin Ot Z79.899 03/25/2015 GAMALIEL MURRAY, CEE Konstantin Ot C50.511 03/25/2015 GAMALIEL MURRAY, CEE Konstantin Ot C50.411 03/25/2015 GAMALIEL MURRAY, CEE Pryor Ot Z51.81 03/25/2015 GAMALIEL MURRAY, CEE Pryor Ot Z79.899 03/25/2015 BURROWS, DARÍO You HANDKERCHIEF CUTTER Ot N63 03/25/2015 BURROWS, DARÍO A HANDKERCHIEF CUTTER Ot R92.8 03/25/2015 BURROWS, DARÍO A HANDKERCHIEF CUTTER Ot 784.2 03/31/2015 BURROWS, DARÍO A HANDKERCHIEF CUTTER Ot 784.2 03/31/2015 PEBBLES MURRAY, SHERRY You (DDU) Ot Z02.71 03/31/2015 BURROWS, DARÍO A HANDKERCHIEF CUTTER Ot N64.4 03/31/2015 BURROWS, DARÍO A HANDKERCHIEF CUTTER Ot N63 03/31/2015 BURROWS, DARÍO A HANDKERCHIEF CUTTER Ot R92.8 03/31/2015 GAMALIEL MURRAY, CEE Pryor [...] Pryor Ot R92.8 03/31/2015 KITTY SANDRA S COOK FRUIT Ot C50.511 03/31/2015 KITTY HILAH S COOK FRUIT Ot E66.9 03/31/2015 KITTY HILAH S COOK FRUIT Ot E78.5 03/31/2015 KITTY KARINAH S COOK FRUIT Ot F17.210 03/31/2015 KITTY KARINAH S COOK FRUIT Ot F31.9 03/31/2015 KITTY SANDRA S COOK FRUIT Ot I10 03/31/2015 KITTY SANDRA S COOK FRUIT Ot J44.9 03/31/2015 KITTY SANDRA S COOK FRUIT Ot Z17.1 03/31/2015 KITTY SANDRA S COOK FRUIT Ot Z68.35 03/31/2015 KITTY KARINAH S COOK FRUIT Ot Z79.899 03/31/2015 GAMALIEL MURRAY, CEE Pryor Ot C50.511 03/31/2015 GAMALIEL MURRAY, CEE Pryor Ot Z51.81 03/31/2015 GAMALIEL MURRAY, CEE Pryor Ot Z79.899 03/31/2015 GAMALIEL MURRAY, CEE Pryor Ot C50.511 03/31/2015 MARIA LUZ MURRAY, CAM Jara Ot C50.911 03/31/2015 MARIA LUZ MURRAY, CAM M Ot Z01.818 04/04/2015 DARÍO BURROWS HANDKERCHIEF CUTTER Ot 784.2 04/04/2015 DARÍO BURROWS HANDKERCHIEF CUTTER Ot N64.4 04/04/2015 DARÍO BURROWS HANDKERCHIEF CUTTER Ot N63 04/04/2015 DARÍO BURROWS HANDKERCHIEF CUTTER Ot R92.8 04/04/2015 GAMALIEL MURRAY, CEE Pryor Ot C50.511 04/04/2015 GAMALIEL MURRAY, CEE K Ot R92.8 04/04/2015 TANGSANDRA Lazar COOK FRUIT Ot C50.511 04/04/2015 SANDRA TANG COOK FRUIT Ot E66.9 04/04/2015 SANDRA TANG S COOK FRUIT Ot E78.5 04/04/2015 SANDRA TANG S COOK FRUIT Ot F17.210 04/04/2015 SANDRA TANG S COOK FRUIT Ot F31.9 04/04/2015 SANDRA TANG S COOK FRUIT Ot I10 04/04/2015 SANDRA TANG S COOK FRUIT Ot J44.9 04/04/2015 SANRDA TANG S COOK FRUIT Ot Z17.1 04/04/2015 TANGSANDRA Lazar S COOK FRUIT Ot Z68.35 04/04/2015 TANGSANDRA Lazar COOK FRUIT Ot Z79.899 04/04/2015 GAMALIEL MURRAY, CEE Konstantin Ot C50.511 04/04/2015 GAMALIEL MURRAY, CEE Konstantin Ot Z51.81 04/04/2015 GAMALIEL MURRAY, CEE K Ot Z79.899 04/04/2015 GAMALIEL MURRAY, CEE Pryor Ot C50.511 04/07/2015 DARÍO BURROWS HANDKERCHIEF CUTTER Ot 784.2 04/07/2015 PEBBLES MURRAY, SHERRY You (DDU) Ot Z02.71 04/07/2015 DARÍO BURROWS HANDKERCHIEF CUTTER Ot N64.4 04/07/2015 DARÍO BURROWS HANDKERCHIEF CUTTER Ot N63 04/07/2015 DARÍO BURROWS HANDKERCHIEF CUTTER Ot R92.8 04/07/2015 GAMALIEL MURRAY, CEE Konstantin [...] Pryor Ot R92.8 04/07/2015 KITTY SANDRA S COOK FRUIT Ot C50.511 04/07/2015 KARIN TANGSINGH S COOK FRUIT Ot E66.9 04/07/2015 KITTY SANDRA S COOK FRUIT Ot E78.5 04/07/2015 KITTY SANDRA S COOK FRUIT Ot F17.210 04/07/2015 KITTY SANDRA S COOK FRUIT Ot F31.9 04/07/2015 KITTY SANDRA S COOK FRUIT Ot I10 04/07/2015 KITTY SANDRA S COOK FRUIT Ot J44.9 04/07/2015 KITTY SANDRA S COOK FRUIT Ot Z17.1 04/07/2015 KITTY SANDRA S COOK FRUIT Ot Z68.35 04/07/2015 KITTY SANDRA S COOK FRUIT Ot Z79.899 04/07/2015 GAMALIEL MURRAY, CEE Pryor [...] Pryor Ot Z68.34 04/21/2015 GAMALIEL MURRAY, CEE Proyr Ot Z79.899 04/22/2015 GAMALIEL MURRAY, CEE Pryor [...] SANDRA TANG Ot C50.511 04/29/2015 SANDRA TANG COOK FRUIT Ot Z79.899 04/30/2015 GAMALIEL MURRAY, CEE Pryor [...] CEE Pryor Ot Z51.81 06/17/2015 DARÍO BURROWS HANDKERCHIEF CUTTER Ot 784.2 SWELLING IN HEAD NECK 06/17/2015 SHERRY ROGEL MD (DDU) Ot Z02.71 ENCOUNTER FOR DISABILITY DETERMINATION 06/17/2015 DARÍO BURROWS HANDKERCHIEF CUTTER Ot N64.4 MASTODYNIA 06/17/2015 DARÍO BURROWS HANDKERCHIEF CUTTER Ot N63 UNSPECIFIED LUMP IN BREAST 06/17/2015 [...] FINDINGS ON DX 06/17/2015 SANDRA TANG Cady COOK FRUIT Ot 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 06/17/2015 SANDRA TANG S COOK FRUIT Ot E66.9 OBESITY, UNSPECIFIED 06/17/2015 SANDRA TANG S COOK FRUIT Ot E78.5 HYPERLIPIDEMIA, UNSPECIFIED 06/17/2015 KARIN TANGSINGH S COOK FRUIT Ot F17.210 NICOTINE DEPENDENCE, CIGARETTES, UNCOMPL 06/17/2015 SANDRA TANG S COOK FRUIT Ot F31.9 BIPOLAR DISORDER, UNSPECIFIED 06/17/2015 KARIN TANGSINGH S COOK FRUIT Ot I10 ESSENTIAL (PRIMARY) HYPERTENSION 06/17/2015 SANDRA TANG S COOK FRUIT Ot J44.9 CHRONIC OBSTRUCTIVE PULMONARY DISEASE, U 06/17/2015 SANDRA TANG S COOK FRUIT Ot Z17.1 ESTROGEN RECEPTOR NEGATIVE STATUS [ER-] 06/17/2015 SANDRA TANG S COOK FRUIT Ot Z68.35 BODY MASS INDEX (BMI) 35.0-35.9, ADULT 06/17/2015 SANDRA TANG S COOK FRUIT Ot Z79.899 OTHER CLEAT BLANKER (CURRENT) DRUG THERAPY 06/17/2015 CEE ALSTON MD [...] 06/17/2015 CEE ALSTON MD Ot Z79.899 OTHER CLEAT BLANKER (CURRENT) DRUG THERAPY 06/17/2015 SANDRA TANG Ot 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 06/17/2015 SANDRA TANG Ot Z79.899 OTHER CLEAT BLANKER (CURRENT) DRUG THERAPY 06/17/2015 CEE ALSTON MD [...] 07/30/2015 CEE ALSTON MD, Ot Z79.899 OTHER CLEAT BLANKER (CURRENT) DRUG THERAPY 07/31/2015 CEE ALSTON MD, [...] 07/31/2015 CEE ALSTON MD, Ot Z79.899 OTHER CLEAT BLANKER (CURRENT) DRUG THERAPY 08/05/2015 CEE ALSTON MD, [...] 01/01/2016 CEE ALSTON MD Ot Z79.899 OTHER CLEAT BLANKER (CURRENT) DRUG THERAPY 02/16/2016 DARÍO BURROWS HANDKERCHIEF CUTTER Ot 784.2 SWELLING IN HEAD NECK 02/16/2016 SHERRY ROGEL MD (DDU) Ot Z02.71 ENCOUNTER FOR DISABILITY DETERMINATION 02/16/2016 DARÍO BURROWS HANDKERCHIEF CUTTER Ot N64.4 MASTODYNIA 02/16/2016 DARÍO BURROWS HANDKERCHIEF CUTTER Ot N63 UNSPECIFIED LUMP IN BREAST 02/16/2016 DARÍO BURROWS APRN Ot R92.8 OTH ABN AND INCONCLUSIVE FINDINGS ON DX 02/16/2016 CEE ALSTON MD Ot C50.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 02/16/2016 CEE ALSTON MD Ot Z51.81 ENCOUNTER FOR THERAPEUTIC DRUG LEVEL MON 02/16/2016 CEE ALSTON MD Ot Z79.899 OTHER CLEAT BLANKER (CURRENT) DRUG THERAPY 02/16/2016 CEE ALSTON MD Ot 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 02/16/2016 CEE ALSTON MD, Ot R92.8 OTH ABN AND INCONCLUSIVE FINDINGS ON DX 02/16/2016 SANDRA TANG COOK FRUIT Ot 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 02/16/2016 SANDRA TANG COOK FRUIT Ot E66.9 OBESITY, UNSPECIFIED 02/16/2016 SANDRA TANG S COOK FRUIT Ot E78.5 HYPERLIPIDEMIA, UNSPECIFIED 02/16/2016 SANDRA TANG COOK FRUIT Ot F17.210 NICOTINE DEPENDENCE, CIGARETTES, UNCOMPL 02/16/2016 SANDRA TANG COOK FRUIT Ot F31.9 BIPOLAR DISORDER, UNSPECIFIED 02/16/2016 SANDRA TANG S COOK FRUIT Ot I10 ESSENTIAL (PRIMARY) HYPERTENSION 02/16/2016 SANDRA TANG COOK FRUIT Ot J44.9 CHRONIC OBSTRUCTIVE PULMONARY DISEASE, U 02/16/2016 SANDRA TANG S COOK FRUIT Ot Z17.1 ESTROGEN RECEPTOR NEGATIVE STATUS [ER-] 02/16/2016 SANDRA TANG COOK FRUIT Ot Z68.35 BODY MASS INDEX (BMI) 35.0-35.9, ADULT 02/16/2016 SANDRA TANG COOK FRUIT Ot Z79.899 OTHER CUSTODIAL (CURRENT) DRUG THERAPY 02/16/2016 CEE ALSTON MD Ot 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 02/16/2016 CEE ALSTON MD Ot Z51.81 ENCOUNTER FOR THERAPEUTIC DRUG LEVEL MON 02/16/2016 CEE ALSTON MD Ot Z79.899 OTHER CLEAT BLANKER (CURRENT) DRUG THERAPY 02/16/2016 CEE ALSTON MD [...] OTHER CUSTODIAL (CURRENT) DRUG THERAPY 02/16/2016 SANDRA TANG Ot 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 02/16/2016 SANDRA TANG Ot Z79.899 OTHER CLEAT BLANKER (CURRENT) DRUG THERAPY 02/16/2016 GAMALIEL MURRAY CEE [...] I10 ESSENTIAL (PRIMARY) HYPERTENSION 02/16/2016 EULOGIO BRGAA MD, Ot J44.9 CHRONIC OBSTRUCTIVE PULMONARY DISEASE, U 02/16/2016 EULOGIO BRAGA MD Ot Z17.0 ESTROGEN RECEPTOR POSITIVE STATUS [ER+] 02/16/2016 EULOGIO BRAGA MD Ot Z68.34 BODY MASS INDEX (BMI) 34.0-34.9, ADULT 02/16/2016 EULOGIO BRAGA MD, Ot Z79.899 OTHER CLEAT BLANKER (CURRENT) DRUG THERAPY 02/16/2016 DARÍO BURROWS APRN [...] 02/16/2016 CEE ALSTON MD Ot Z79.899 OTHER CLEAT BLANKER (CURRENT) DRUG THERAPY 02/16/2016 CEE ALSTON MD Ot 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 02/16/2016 CEE ALSTON MD Ot R92.8 OTH ABN AND INCONCLUSIVE FINDINGS ON DX 02/16/2016 SANDRA TANG COOK FRUIT Ot 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 02/16/2016 SANDRA TANG S COOK FRUIT Ot E66.9 OBESITY, UNSPECIFIED 02/16/2016 SANDRA TANG S COOK FRUIT Ot E78.5 HYPERLIPIDEMIA, UNSPECIFIED 02/16/2016 SANDRA TANG S COOK FRUIT Ot F17.210 NICOTINE DEPENDENCE, CIGARETTES, UNCOMPL 02/16/2016 SANDRA TANG S COOK FRUIT Ot F31.9 BIPOLAR DISORDER, UNSPECIFIED 02/16/2016 SANDRA TANG S COOK FRUIT Ot I10 ESSENTIAL (PRIMARY) HYPERTENSION 02/16/2016 SANDRA TNAG COOK FRUIT Ot J44.9 CHRONIC OBSTRUCTIVE PULMONARY DISEASE, U 02/16/2016 SANDRA TANG S COOK FRUIT Ot Z17.1 ESTROGEN RECEPTOR NEGATIVE STATUS [ER-] 02/16/2016 SANDRA TANG S COOK FRUIT Ot Z68.35 BODY MASS INDEX (BMI) 35.0-35.9, ADULT 02/16/2016 SANDRA TANG S COOK FRUIT Ot Z79.899 OTHER CLEAT BLANKER (CURRENT) DRUG THERAPY 02/16/2016 CEE ALSTON MD Ot 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 02/16/2016 CEE ALSTON MD Ot Z51.81 ENCOUNTER FOR THERAPEUTIC DRUG LEVEL MON 02/16/2016 CEE ALSTON MD Ot Z79.899 OTHER CLEAT BLANKER (CURRENT) DRUG THERAPY 02/16/2016 CEE ALSTON MD [...] 02/16/2016 CEE ALSTON MD Ot Z79.899 OTHER CLEAT BLANKER (CURRENT) DRUG THERAPY 02/16/2016 SANDRA TANG Ot [...] 02/16/2016 EULOGIO BRAGA MD Ot Z79.899 OTHER CLEAT BLANKER (CURRENT) DRUG THERAPY 02/16/2016 EDIL QURESHI Ot F17.210 NICOTINE DEPENDENCE, CIGARETTES, UNCOMPL 02/16/2016 EDIL QURESHI Ot F41.9 ANXIETY DISORDER, UNSPECIFIED 02/16/2016 EDIL QURESHI Ot I10 ESSENTIAL (PRIMARY) HYPERTENSION 02/16/2016 EDIL QURESHI Ot Z95.9 PRESENCE OF CARDIAC AND VASCULAR IMPLANT 02/16/2016 DARÍO BURROWS APRN Ot 784.2 SWELLING IN HEAD NECK 02/16/2016 SHERRY ROGEL MD ([facility]) Ot Z02.71 ENCOUNTER FOR DISABILITY DETERMINATION 02/16/2016 DARÍO BURROWS HANDKERCHIEF CUTTER Ot N64.4 MASTODYNIA 02/16/2016 DARÍO BURROWS HANDKERCHIEF CUTTER Ot N63 UNSPECIFIED LUMP IN BREAST 02/16/2016 ADRÍO BURROWS APRN Ot R92.8 OTH ABN AND INCONCLUSIVE FINDINGS ON DX 02/16/2016 CEE ALSTON MD Ot C50.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 02/16/2016 CEE ALSTON MD Ot Z51.81 ENCOUNTER FOR THERAPEUTIC DRUG LEVEL MON 02/16/2016 CEE ALSTON MD Ot Z79.899 OTHER CLEAT BLANKER (CURRENT) DRUG THERAPY 02/16/2016 CEE ALSTON MD [...] 02/16/2016 CEE ALSTON MD Ot Z79.899 OTHER CLEAT BLANKER (CURRENT) DRUG THERAPY 02/16/2016 CEE ALSTON MD [...] 02/16/2016 CEE ALSTON MD Ot Z79.899 OTHER CLEAT BLANKER (CURRENT) DRUG THERAPY 02/16/2016 SANDRA TANG Ot [...] 02/16/2016 EULOGIO BRAGA MD, Ot Z79.899 OTHER CLEAT BLANKER (CURRENT) DRUG THERAPY 02/17/2016 EDIL QURESHI Ot [...] 03/01/2016 CEE ALSTON MD Ot Z79.899 OTHER CLEAT BLANKER (CURRENT) DRUG THERAPY 03/01/2016 CEE ALSTON MD Ot 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 03/01/2016 CEE ALSTON MD Ot R92.8 OTH ABN AND INCONCLUSIVE FINDINGS ON DX 03/01/2016 SANDRA TANG Ot 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 03/01/2016 SANDRA TANG Ot E66.9 OBESITY, UNSPECIFIED 03/01/2016 SANDRA TANG COOK FRUIT Ot E78.5 HYPERLIPIDEMIA, UNSPECIFIED 03/01/2016 SANDRA TANG COOK FRUIT Ot F17.210 NICOTINE DEPENDENCE, CIGARETTES, UNCOMPL 03/01/2016 SANDRA TANG COOK FRUIT Ot F31.9 BIPOLAR DISORDER, UNSPECIFIED 03/01/2016 SANDRA TANG COOK FRUIT Ot I10 ESSENTIAL (PRIMARY) HYPERTENSION 03/01/2016 SANDRA TANGP Ot J44.9 CHRONIC OBSTRUCTIVE PULMONARY DISEASE, U 03/01/2016 SANDRA TANG COOK FRUIT Ot Z17.1 ESTROGEN RECEPTOR NEGATIVE STATUS [ER-] 03/01/2016 SANDRA TANG COOK FRUIT Ot Z68.35 BODY MASS INDEX (BMI) 35.0-35.9, ADULT 03/01/2016 SANDRA TANGP Ot Z79.899 OTHER CUSTODIAL (CURRENT) DRUG THERAPY 03/01/2016 CEE ALSTON MD Ot 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 03/01/2016 CEE ALSTON MD Ot Z51.81 ENCOUNTER FOR THERAPEUTIC DRUG LEVEL MON 03/01/2016 CEE ALSTON MD Ot Z79.899 OTHER CLEAT BLANKER (CURRENT) DRUG THERAPY 03/01/2016 CEE ALSTON MD [...] 03/01/2016 CEE ALSTON MD Ot Z79.899 OTHER CLEAT BLANKER (CURRENT) DRUG THERAPY 03/01/2016 SANDRA TANG Ot 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) Ot Z02.71 ENCOUNTER FOR DISABILITY DETERMINATION 03/01/2016 DARÍO BURROWS HANDKERCHIEF CUTTER Ot N64.4 MASTODYNIA 03/01/2016 DARÍO BURROWS HANDKERCHIEF CUTTER Ot N63 UNSPECIFIED LUMP IN BREAST 03/01/2016 DARÍO BURROWS HANDKERCHIEF CUTTER Ot R92.8 OTH ABN AND INCONCLUSIVE FINDINGS ON DX 03/01/2016 CEE ALSTON MD Ot C50.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 03/01/2016 CEE ALSTON MD Ot Z51.81 ENCOUNTER FOR THERAPEUTIC DRUG LEVEL MON 03/01/2016 CEE ALSTON MD Ot Z79.899 OTHER CLEAT BLANKER (CURRENT) DRUG THERAPY 03/01/2016 CEE ALSTON MD [...] 03/01/2016 CEE ALSTON MD Ot Z79.899 OTHER CLEAT BLANKER (CURRENT) DRUG THERAPY 03/01/2016 SANDRA TANG Ot 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 03/01/2016 SANDRA TANG Ot Z79.899 OTHER CLEAT BLANKER (CURRENT) DRUG THERAPY 03/01/2016 CEE ALSTON MD [...] MON 03/02/2016 ADE FOWLER Ot Z79.899 OTHER CLEAT BLANKER (CURRENT) DRUG THERAPY 03/02/2016 ADE FOWLER Ot [...] NICOTINE DEPENDENCE, CIGARETTES, UNCOMPL 03/04/2016 KAYLA MELENDEZ HANDKERCHIEF CUTTER Ot I10 ESSENTIAL (PRIMARY) HYPERTENSION 03/04/2016 KAYLA MELENDEZ APRN Ot J44.9 CHRONIC OBSTRUCTIVE PULMONARY DISEASE, U 03/04/2016 KAYLA MELENDEZ APRN Ot N61.0 MASTITIS WITHOUT ABSCESS 03/04/2016 KAYLA MELENDEZ APRN Ot Z79.899 OTHER CLEAT BLANKER (CURRENT) DRUG THERAPY 03/04/2016 KAYLA MELENDEZ APRN [...] 03/05/2016 KAYLA MELENDEZ APRN Ot Z79.899 OTHER CLEAT BLANKER (CURRENT) DRUG THERAPY 03/05/2016 KAYLA MELENDEZ APRN Ot Z90.11 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 03/07/2016 ADE FOWLER Ot Z51.81 ENCOUNTER FOR THERAPEUTIC DRUG LEVEL MON 03/07/2016 ADE FOWLER Ot Z79.899 OTHER CUSTODIAL (CURRENT) DRUG THERAPY 03/18/2016 ADE FOWLER Ot Z51.81 ENCOUNTER FOR THERAPEUTIC DRUG LEVEL MON 03/18/2016 ADE FOWLER Ot Z79.899 OTHER CUSTODIAL (CURRENT) DRUG THERAPY 04/19/2016 DARÍO BURROWS HANDKERCHIEF CUTTER Ot 784.2 SWELLING IN HEAD NECK 04/19/2016 SHERRY ROGEL MD ([facility]) Ot Z02.71 ENCOUNTER FOR DISABILITY DETERMINATION 04/19/2016 BURROWSDARÍO Avelino HANDKERCHIEF CUTTER Ot N64.4 MASTODYNIA 04/19/2016 DARÍO BURROWS HANDKERCHIEF CUTTER Ot N63 UNSPECIFIED LUMP IN BREAST 04/19/2016 ROB BURROWSFER Avelino HANDKERCHIEF CUTTER Ot R92.8 OTH ABN AND INCONCLUSIVE FINDINGS [...] OF LOWER-OUTER QUADRANT OF 04/19/2016 SANDRA TANG COOK FRUIT Ot E66.9 OBESITY, UNSPECIFIED 04/19/2016 SANDRA TANGP Ot E78.5 HYPERLIPIDEMIA, UNSPECIFIED 04/19/2016 SANDRA TANG COOK FRUIT Ot F17.210 NICOTINE DEPENDENCE, CIGARETTES, UNCOMPL 04/19/2016 SANDRA TANG COOK FRUIT Ot F31.9 BIPOLAR DISORDER, UNSPECIFIED 04/19/2016 SANDRA TANGP Ot I10 ESSENTIAL (PRIMARY) HYPERTENSION 04/19/2016 SANDRA TANGP Ot J44.9 CHRONIC OBSTRUCTIVE PULMONARY DISEASE, U 04/19/2016 SANDRA TANGP Ot Z17.1 ESTROGEN RECEPTOR NEGATIVE STATUS [ER-] 04/19/2016 SANDRA TANGP Ot Z68.35 BODY MASS INDEX (BMI) 35.0-35.9, ADULT 04/19/2016 SANDRA TANG COOK FRUIT Ot Z79.899 OTHER CUSTODIAL (CURRENT) DRUG THERAPY 04/19/2016 CEE ALSTON MD Ot C50.511 MALIG NEOPLM OF LOWER-OUTER QUADRANT OF 04/19/2016 CEE ALSTON MD Ot Z51.81 ENCOUNTER FOR THERAPEUTIC DRUG LEVEL MON 04/19/2016 CEE ALSTON MD Ot Z79.899 OTHER CLEAT BLANKER (CURRENT) DRUG THERAPY 04/19/2016 CEE ALSTON MD [...] OF 04/19/2016 SANDRA TANG Ot Z79.899 OTHER CLEAT BLANKER (CURRENT) DRUG THERAPY 04/19/2016 CEE ALSTON MD [...] (CURRENT) DRUG THERAPY 05/06/2016 STORMY DARÍO A HANDKERCHIEF CUTTER Ot 784.2 SWELLING IN HEAD NECK 05/06/2016 PEBBLES MURRAY, SHERRY You (U) Ot Z02.71 ENCOUNTER FOR DISABILITY DETERMINATION 05/06/2016 DARÍO BURROWS HANDKERCHIEF CUTTER Ot N64.4 MASTODYNIA 05/06/2016 DARÍO BURROWS HANDKERCHIEF CUTTER Ot N63 UNSPECIFIED LUMP IN BREAST 05/06/2016 DARÍO BURROWS HANDKERCHIEF CUTTER Ot R92.8 OTH ABN AND INCONCLUSIVE FINDINGS ON DX 05/06/2016 CEE ALSTON MD Ot C50.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 05/06/2016 CEE ALSTON MD Ot Z51.81 ENCOUNTER FOR THERAPEUTIC DRUG LEVEL MON 05/06/2016 CEE ALSTON MD Ot Z79.899 OTHER CLEAT BLANKER (CURRENT) DRUG THERAPY 05/06/2016 CEE ALSTON MD Ot C50.511 MALIG NEOPLM OF LOWER-OUTER QUADRANT OF 05/06/2016 CEE ALSTON MD Ot R92.8 OTH ABN AND INCONCLUSIVE FINDINGS ON DX 05/06/2016 SANDRA TANG Ot C50.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9, ADULT 05/06/2016 SANDRA TANG COOK FRUIT Ot Z79.899 OTHER CLEAT BLANKER (CURRENT) DRUG THERAPY 05/06/2016 CEE ALSTON MD Ot 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 05/06/2016 CEE ALSTON MD Ot Z51.81 ENCOUNTER FOR THERAPEUTIC DRUG LEVEL MON 05/06/2016 CEE ALSTON MD Ot Z79.899 OTHER CLEAT BLANKER (CURRENT) DRUG THERAPY 05/06/2016 CEE ALSTON MD [...] 05/06/2016 CEE ALSTON MD Ot Z79.899 OTHER CLEAT BLANKER (CURRENT) DRUG THERAPY 05/06/2016 SANDRA TANG COOK FRUIT Ot C50.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 05/06/2016 SANDRA TANG Ot Z79.899 OTHER CLEAT BLANKER (CURRENT) DRUG THERAPY 05/06/2016 CEE ALSTON MD [...] F17.210 NICOTINE DEPENDENCE, CIGARETTES, UNCOMPL 05/06/2016 EULOGIO BRAAG MD Ot F31.9 BIPOLAR DISORDER, UNSPECIFIED 05/06/2016 EULOGIO BRAGA MD Ot I10 ESSENTIAL (PRIMARY) HYPERTENSION 05/06/2016 EULOGIO BRAGA MD Ot J44.9 CHRONIC OBSTRUCTIVE PULMONARY DISEASE, U 05/06/2016 EULOGIO BRAGA MD, Ot Z17.0 ESTROGEN RECEPTOR POSITIVE STATUS [ER+] 05/06/2016 EULOGIO BRAGA MD, Ot Z68.34 BODY MASS INDEX (BMI) 34.0-34.9, ADULT 05/06/2016 EULOGIO BRAGA MD, Ot Z79.899 OTHER CLEAT BLANKER (CURRENT) DRUG THERAPY 05/24/2016 ADE FOWLER Ot Z51.81 ENCOUNTER FOR THERAPEUTIC DRUG LEVEL MON 05/24/2016 ADE FOWLER Ot Z79.899 OTHER CLEAT BLANKER (CURRENT) DRUG THERAPY 05/25/2016 EULOGIO BRAGA MD, [...] ESTROGEN RECEPTOR POSITIVE STATUS [ER+] 05/25/2016 EULOGIO BRGAA MD, Ot Z68.34 BODY MASS INDEX (BMI) [...] 07/19/2016 EULOGIO BRAGA MD, Ot Z79.899 OTHER CLEAT BLANKER (CURRENT) DRUG THERAPY 07/21/2016 XUN MD, PIRES-DENEEN [...] 07/21/2016 EULOGIO BRAGA MD Ot Z79.899 OTHER CLEAT BLANKER (CURRENT) DRUG THERAPY 08/23/2016 EULOGIO BRAGA MD Ot C50.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 08/23/2016 EULOGIO BRAGA MD Ot E66.9 OBESITY, UNSPECIFIED 08/23/2016 EULOGIO BRAGA MD Ot E78.5 HYPERLIPIDEMIA, UNSPECIFIED 08/23/2016 EULOGIO BARGA MD Ot F17.210 NICOTINE DEPENDENCE, CIGARETTES, UNCOMPL [...] 08/23/2016 EULOGIO BRAGA MD Ot Z79.899 OTHER CLEAT BLANKER (CURRENT) DRUG THERAPY 10/18/2016 EULOGIO BRAGA MD [...] Z51.81 ENCOUNTER FOR THERAPEUTIC DRUG LEVEL [facility] 12/29/2016 ADE FOWLER Ot Z79.899 OTHER CUSTODIAL [...] 01/03/2017 EULOGIO BRAGA MD Ot Z79.899 OTHER CLEAT BLANKER (CURRENT) DRUG THERAPY 01/07/2017 KAYLA MELENDEZ APRN [...] APRN Ot M06.9 RHEUMATOID ARTHRITIS, UNSPECIFIED 01/14/2017 KAYAL MELENDEZ APRN Ot R11.2 NAUSEA WITH VOMITING, [...] OBSTRUCTIVE PULMONARY DISEASE, U 03/30/2017 EULOGIO BRAGA MD Ot Z17.0 ESTROGEN RECEPTOR POSITIVE STATUS [ER+] 03/30/2017 EULOGIO BRAGA MD Ot Z51.0 ENCOUNTER FOR ANTINEOPLASTIC RADIATION T 03/30/2017 EULOGIO BRAGA MD Ot Z68.34 BODY MASS INDEX (BMI) 34.0-34.9, ADULT 03/30/2017 EULOGIO BRAGA MD Ot Z79.899 OTHER CUSTODIAL (CURRENT) DRUG THERAPY 05/20/2017 ADE FOWLER Ot Z51.81 ENCOUNTER FOR THERAPEUTIC DRUG LEVEL MON 05/20/2017 ADE FOWLER Ot Z79.899 OTHER CLEAT BLANKER (CURRENT) DRUG THERAPY 05/20/2017 ANAIS MEREDITH MD Ot C50.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 05/20/2017 ANAIS MEREDITH MD Ot E66.9 OBESITY, UNSPECIFIED 05/20/2017 ANAIS MEREDITH MD Ot E78.5 HYPERLIPIDEMIA, UNSPECIFIED 05/20/2017 ANAIS MEREDITH MD Ot F17.210 NICOTINE DEPENDENCE, CIGARETTES, UNCOMPL 05/20/2017 ANAIS MEREDITH MD Ot F31.9 BIPOLAR DISORDER, UNSPECIFIED 05/20/2017 ANAIS MEREDITH MD Ot I10 ESSENTIAL (PRIMARY) HYPERTENSION 05/20/2017 ANAIS MEREDITH MD Ot J44.9 CHRONIC OBSTRUCTIVE PULMONARY DISEASE, U 05/20/2017 ANAIS MEREDITH MD Ot Z17.0 ESTROGEN RECEPTOR POSITIVE STATUS [ER+] 05/20/2017 ANAIS MEREDITH MD Ot Z51.0 ENCOUNTER FOR ANTINEOPLASTIC RADIATION T 05/20/2017 ANAIS MEREDITH MD Ot Z68.34 BODY MASS INDEX (BMI) 34.0-34.9, ADULT 05/20/2017 ANAIS MEREDITH MD Ot Z79.899 OTHER CLEAT BLANKER (CURRENT) DRUG THERAPY 05/20/2017 ADE FOWLER Ot Z51.81 ENCOUNTER FOR THERAPEUTIC DRUG LEVEL MON 05/20/2017 ADE FOWLER Ot Z79.899 OTHER CLEAT BLANKER (CURRENT) DRUG THERAPY 05/20/2017 ANAIS MEREDITH MD Ot C50.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 05/20/2017 ANAIS MEREDITH MD Ot E66.9 OBESITY, UNSPECIFIED 05/20/2017 ANAIS MEREDITH MD Ot E78.5 HYPERLIPIDEMIA, UNSPECIFIED 05/20/2017 ANAIS MEREDITH MD Ot F17.210 NICOTINE DEPENDENCE, CIGARETTES, UNCOMPL 05/20/2017 ANAIS MEREDITH MD Ot F31.9 BIPOLAR DISORDER, UNSPECIFIED 05/20/2017 ANAIS MEREDITH MD Ot I10 ESSENTIAL (PRIMARY) HYPERTENSION 05/20/2017 ANAIS MEREDITH MD Ot J44.9 CHRONIC OBSTRUCTIVE PULMONARY DISEASE, U 05/20/2017 ANAIS MEREDITH MD Ot Z17.0 ESTROGEN RECEPTOR POSITIVE STATUS [ER+] 05/20/2017 ANAIS MEREDITH MD, Ot Z51.0 ENCOUNTER FOR ANTINEOPLASTIC RADIATION T 05/20/2017 ANAIS MEREDITH MD Ot Z68.34 BODY MASS INDEX (BMI) 34.0-34.9, ADULT 05/20/2017 ANAIS MEREDITH MD Ot Z79.899 OTHER CLEAT BLANKER (CURRENT) DRUG THERAPY 05/20/2017 JEFFREY DO EMILY [...] R11.2 NAUSEA WITH VOMITING, UNSPECIFIED 05/20/2017 JEFFREY DO EMILY K Ot R51 HEADACHE 05/20/2017 JEFFREY DO, EMILY K Ot Z85.3 PERSONAL HISTORY OF MALIGNANT NEOPLASM O 05/20/2017 EMILY MURPHY DO Ot Z85.828 PERSONAL HISTORY OF OTHER MALIGNANT NEOP 05/20/2017 EMILY MURPHY DO Ot Z87.59 PERSONAL HISTORY OF COMP OF PREG, CHLDBR 05/20/2017 EMILY MURPHY DO Ot Z90.13 ACQUIRED ABSENCE OF BILATERAL BREASTS AN 05/20/2017 EMILY MURPHY DO Ot Z92.21 PERSONAL HISTORY OF ANTINEOPLASTIC CHEMO 05/20/2017 ADE FOWLER Ot Z51.81 ENCOUNTER FOR THERAPEUTIC DRUG LEVEL MON 05/20/2017 ADE FOWLER Ot Z79.899 OTHER CLEAT BLANKER (CURRENT) DRUG THERAPY 05/20/2017 ANAIS MEREDITH MD Ot C50.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 05/20/2017 ANAIS MEREDITH MD Ot E66.9 OBESITY, UNSPECIFIED 05/20/2017 ANAIS MEREDITH MD Ot E78.5 HYPERLIPIDEMIA, UNSPECIFIED 05/20/2017 ANAIS MEREDITH MD Ot F17.210 NICOTINE DEPENDENCE, CIGARETTES, UNCOMPL 05/20/2017 ANAIS MEREDITH MD Ot F31.9 BIPOLAR DISORDER, UNSPECIFIED 05/20/2017 ANAIS MEREDITH MD Ot I10 ESSENTIAL (PRIMARY) HYPERTENSION 05/20/2017 ANAIS MEREDITH MD Ot J44.9 CHRONIC OBSTRUCTIVE PULMONARY DISEASE, U 05/20/2017 ANAIS MEREDITH MD Ot Z17.0 ESTROGEN RECEPTOR POSITIVE STATUS [ER+] 05/20/2017 ANAIS MEREDITH MD Ot Z51.0 ENCOUNTER FOR ANTINEOPLASTIC RADIATION T 05/20/2017 ANAIS MEREDITH MD Ot Z68.34 BODY MASS INDEX (BMI) 34.0-34.9, ADULT 05/20/2017 ANAIS MEREDITH MD Ot Z79.899 OTHER CUSTODIAL (CURRENT) DRUG THERAPY 05/21/2017 NOELLE MAK MD Ot C50.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 05/21/2017 NOELLE MAK MD Ot C79.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 05/21/2017 NOELLE MAK MD Ot E78.00 PURE HYPERCHOLESTEROLEMIA, UNSPECIFIED 05/21/2017 NOELLE MAK MD Ot F31.9 BIPOLAR DISORDER, UNSPECIFIED 05/21/2017 NOELLE MAK MD Ot F41.9 ANXIETY DISORDER, UNSPECIFIED 05/21/2017 NOELLE MAK MD Ot F60.9 PERSONALITY DISORDER, UNSPECIFIED 05/21/2017 NOELLE MAK MD Ot I10 ESSENTIAL (PRIMARY) HYPERTENSION 05/21/2017 NOELLE MAK MD Ot J45.909 UNSPECIFIED ASTHMA, UNCOMPLICATED 05/21/2017 NOELLE MAK MD Ot K21.9 GASTRO-ESOPHAGEAL REFLUX DISEASE WITHOUT 05/21/2017 NOELLE MAK MD Ot M06.9 RHEUMATOID ARTHRITIS, UNSPECIFIED 05/21/2017 NOELLE MAK MD Ot R10.13 EPIGASTRIC PAIN 05/21/2017 NOELLE MAK MD Ot Z77.22 CNTCT W AND EXPSR TO ENVIRON TOBACCO SMO 05/21/2017 NOELLE MAK MD Ot Z87.59 PERSONAL HISTORY OF COMP OF PREG, CHLDBR 05/21/2017 NOELLE MAK MD Ot Z90.13 ACQUIRED ABSENCE OF BILATERAL BREASTS AN 05/21/2017 NOELLE MAK MD Ot Z92.21 PERSONAL HISTORY OF ANTINEOPLASTIC CHEMO 05/21/2017 NOELLE MAK MD Ot Z92.3 PERSONAL HISTORY OF IRRADIATION 05/21/2017 ADE FOWLER Ot Z51.81 ENCOUNTER FOR THERAPEUTIC DRUG LEVEL MON 05/21/2017 ADE FOWLER Ot Z79.899 OTHER CLEAT BLANKER (CURRENT) DRUG THERAPY 05/21/2017 ANAIS MEREDITH MD Ot C50.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 05/21/2017 ANAIS MEREDITH MD Ot E66.9 OBESITY, UNSPECIFIED 05/21/2017 ANAIS MEREDITH MD Ot E78.5 HYPERLIPIDEMIA, UNSPECIFIED 05/21/2017 ANAIS MEREDITH MD Ot F17.210 NICOTINE DEPENDENCE, CIGARETTES, UNCOMPL 05/21/2017 ANAIS MEREDITH MD Ot F31.9 BIPOLAR DISORDER, UNSPECIFIED 05/21/2017 ANAIS MEREDITH MD Ot I10 ESSENTIAL (PRIMARY) HYPERTENSION 05/21/2017 ANAIS MEREDITH MD Ot J44.9 CHRONIC OBSTRUCTIVE PULMONARY DISEASE, U 05/21/2017 ANAIS MEREDITH MD, Ot Z17.0 ESTROGEN RECEPTOR POSITIVE STATUS [ER+] 05/21/2017 MEREDITH MD, ANAIS E Ot Z51.0 ENCOUNTER FOR ANTINEOPLASTIC RADIATION T 05/21/2017 ANAIS MEREDITH MD Ot Z68.34 BODY MASS INDEX (BMI) 34.0-34.9, ADULT 05/21/2017 ANAIS MEREDITH MD Ot Z79.899 OTHER CLEAT BLANKER (CURRENT) DRUG THERAPY 05/23/2017 RAH MURPHY DOA Konstantin Ot C50.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 05/23/2017 RAH MURPHY DOA Konstantin Ot C50.912 MALIGNANT NEOPLASM OF UNSPECIFIED SITE O 05/23/2017 RAH MURPHY DOA K Ot C79.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 05/23/2017 RAH MURPHY DOA Konstantin Ot E78.00 PURE HYPERCHOLESTEROLEMIA, UNSPECIFIED 05/23/2017 JEFFREY BALL EMILY K Ot F17.210 NICOTINE DEPENDENCE, CIGARETTES, UNCOMPL 05/23/2017 JEFFREY BALL EMILY K Ot F31.9 BIPOLAR DISORDER, UNSPECIFIED 05/23/2017 JEFFREY DO EMILY K Ot F41.9 ANXIETY DISORDER, UNSPECIFIED 05/23/2017 JEFFREY DO EMILY K Ot I10 ESSENTIAL (PRIMARY) HYPERTENSION 05/23/2017 JEFFREY BALL EMILY K Ot J45.909 UNSPECIFIED ASTHMA, UNCOMPLICATED 05/23/2017 JEFFREY BALL EMILY K Ot K21.9 GASTRO-ESOPHAGEAL REFLUX DISEASE WITHOUT 05/23/2017 JEFFREY BALL EMILY K Ot M06.9 RHEUMATOID ARTHRITIS, UNSPECIFIED 05/23/2017 JEFFREY BALL EMILY K Ot R11.2 NAUSEA WITH VOMITING, UNSPECIFIED 05/23/2017 RAH MURPHY DOA Konstantin Ot R51 HEADACHE 05/23/2017 JEFFREY DO EMILY K Ot Z85.3 PERSONAL HISTORY OF MALIGNANT NEOPLASM O 05/23/2017 JEFFREY BALL EMILY K Ot Z85.828 PERSONAL HISTORY OF OTHER MALIGNANT NEOP 05/23/2017 EMLIY MURPHY DO Ot Z87.59 PERSONAL HISTORY OF COMP OF PREG, CHLDBR 05/23/2017 RAH MURPHY DOA Konstantin Ot Z90.13 ACQUIRED ABSENCE OF BILATERAL BREASTS AN 05/23/2017 RAH MURPHY DOA K Ot Z92.21 PERSONAL HISTORY OF ANTINEOPLASTIC CHEMO [...] Lazar Ot M06.9 RHEUMATOID ARTHRITIS, UNSPECIFIED 05/23/2017 NOELLE MAK MD Ot R10.13 EPIGASTRIC PAIN 05/23/2017 AUBREE MURRAY, NOELLE Cady Ot Z77.22 CNTCT W AND EXPSR TO ENVIRON TOBACCO SMO 05/23/2017 AUBREE MURRAY NOELLE Cady Ot Z87.59 PERSONAL HISTORY OF COMP OF PREG, CHLDBR 05/23/2017 NOELLE MAK MD Ot Z90.13 ACQUIRED ABSENCE OF BILATERAL BREASTS AN 05/23/2017 AUBREE MURRAY, NOELLE Cady Ot Z92.21 PERSONAL HISTORY OF ANTINEOPLASTIC CHEMO 05/23/2017 NOELLE MAK MD Ot Z92.3 PERSONAL HISTORY OF IRRADIATION 06/03/2017 KAYLA MELENDEZ APRN Ot C50.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 06/03/2017 KALYA MELENDEZ APRN Ot C79.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 06/03/2017 KAYLA MELENDEZ APRN Ot E78.00 PURE HYPERCHOLESTEROLEMIA, UNSPECIFIED 06/03/2017 KAYLA MELENDEZ APRN Ot F31.9 BIPOLAR DISORDER, UNSPECIFIED 06/03/2017 KAYLA MELENDEZ APRN Ot F41.9 ANXIETY DISORDER, UNSPECIFIED 06/03/2017 KAYLA MELENDEZ HANDKERCHIEF CUTTER Ot I10 ESSENTIAL (PRIMARY) HYPERTENSION 06/03/2017 KAYLA MELENDEZ APRN Ot J45.909 UNSPECIFIED ASTHMA, UNCOMPLICATED 06/03/2017 KAYLA MELENDEZ APRN Ot K21.9 GASTRO-ESOPHAGEAL REFLUX DISEASE WITHOUT 06/03/2017 KAYLA MELENDEZ APRN Ot M06.9 RHEUMATOID ARTHRITIS, UNSPECIFIED 06/03/2017 KAYLA MELENDEZ APRN Ot R07.89 OTHER CHEST PAIN 06/03/2017 KAYLA MELENDEZ APRN Ot Z79.52 CLEAT BLANKER (CURRENT) USE OF SYSTEMIC STER 06/03/2017 KAYLA [...] PAIN 06/06/2017 KAYLA MELENDEZ APRN Ot Z79.52 CLEAT BLANKER (CURRENT) USE OF SYSTEMIC STER 06/06/2017 KAYLA [...] PAIN 06/09/2017 KAYLA MELENDEZ APRN Ot Z79.52 CUSTODIAL (CURRENT) USE OF SYSTEMIC STER 06/09/2017 KAYLA [...] MON 06/29/2017 ADE FOWLER Ot Z79.899 OTHER CLEAT BLANKER (CURRENT) DRUG THERAPY 06/29/2017 ANAIS MEREDITH MD Ot C50.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 06/29/2017 ANAIS MEREDITH MD Ot E66.9 OBESITY, UNSPECIFIED 06/29/2017 ANAIS MEREDITH MD Ot E78.5 HYPERLIPIDEMIA, UNSPECIFIED 06/29/2017 ANAIS MEREDITH MD Ot F17.210 NICOTINE DEPENDENCE, CIGARETTES, UNCOMPL 06/29/2017 ANAIS MEREDITH MD Ot F31.9 BIPOLAR DISORDER, UNSPECIFIED 06/29/2017 ANAIS MEREDITH MD Ot I10 ESSENTIAL (PRIMARY) HYPERTENSION 06/29/2017 ANAIS MEREDITH MD Ot J44.9 CHRONIC OBSTRUCTIVE PULMONARY DISEASE, U 06/29/2017 ANAIS MEREDITH MD Ot Z17.0 ESTROGEN RECEPTOR POSITIVE STATUS [ER+] 06/29/2017 ANAIS MEREDITH MD Ot Z51.0 ENCOUNTER FOR ANTINEOPLASTIC RADIATION T 06/29/2017 ANAIS MEREDITH MD Ot Z68.34 BODY MASS INDEX (BMI) 34.0-34.9, ADULT 06/29/2017 ANAIS MEREDITH MD Ot Z79.899 OTHER CUSTODIAL (CURRENT) DRUG [...] UNSPECIFIED 07/01/2017 KAYLA MELENDEZ APRN Ot Z79.52 CLEAT BLANKER (CURRENT) USE OF SYSTEMIC STER 07/01/2017 KAYLA MELENDEZ APRN Ot Z87.59 PERSONAL HISTORY OF COMP OF PREG, CHLDBR 07/01/2017 KAYLA MELENDEZ APRN Ot Z90.13 ACQUIRED ABSENCE OF BILATERAL BREASTS AN 07/01/2017 KAYLA MELENDEZ APRN Ot Z92.21 PERSONAL HISTORY OF ANTINEOPLASTIC CHEMO 07/04/2017 ZEKE ARCHER MD Ot D69.6 THROMBOCYTOPENIA, UNSPECIFIED 07/04/2017 ZEKE ARCHER MD Ot D72.829 ELEVATED WHITE BLOOD CELL COUNT, UNSPECI 07/04/2017 EZKE ARCHER MD Ot E78.00 PURE HYPERCHOLESTEROLEMIA, UNSPECIFIED [...] PAIN 07/04/2017 ZEKE ARCHER MD Ot Z79.52 CLEAT BLANKER (CURRENT) USE OF SYSTEMIC STER 07/04/2017 ZEKE [...] PAIN 07/06/2017 ZEKE ARCHER MD Ot Z79.52 CLEAT BLANKER (CURRENT) USE OF SYSTEMIC STER 07/06/2017 ZEKE ARCHER MD Ot Z85.3 PERSONAL HISTORY OF MALIGNANT NEOPLASM O 07/06/2017 ZEKE ARCHER MD Ot Z85.828 PERSONAL HISTORY OF OTHER MALIGNANT NEOP 07/06/2017 ZEKE ARCHER MD, Ot Z85.841 PERSONAL HISTORY OF MALIGNANT NEOPLASM O 07/06/2017 ZEKE ARCHER MD Ot Z87.59 PERSONAL HISTORY OF COMP OF PREG, CHLDBR 07/06/2017 ZEKE ARCHER MD, Ot Z90.13 ACQUIRED ABSENCE OF BILATERAL BREASTS AN 07/06/2017 ZEKE ARCHER MD Ot Z90.89 ACQUIRED ABSENCE OF OTHER ORGANS 07/06/2017 ZEKE ARCHER MD, Ot Z92.21 PERSONAL HISTORY OF ANTINEOPLASTIC CHEMO 07/06/2017 ZEKE ARCHER MD Ot Z95.9 PRESENCE OF CARDIAC AND VASCULAR IMPLANT 07/09/2017 KARLIE ZHU MD Ot 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 07/09/2017 KARLIE ZHU MD Ot C79.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 07/09/2017 KARLIE ZHU MD Ot E78.00 PURE HYPERCHOLESTEROLEMIA, UNSPECIFIED 07/09/2017 KARLIE ZHU MD Ot F31.9 BIPOLAR DISORDER, UNSPECIFIED 07/09/2017 KARLIE ZHU MD Ot F41.9 ANXIETY DISORDER, UNSPECIFIED 07/09/2017 KARLIE ZHU MD Ot F60.9 PERSONALITY DISORDER, UNSPECIFIED 07/09/2017 KARLIE ZHU MD Ot 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) 07/09/2017 KARLIE ZHU MD Ot I10 ESSENTIAL (PRIMARY) HYPERTENSION 07/09/2017 KARLIE ZHU MD Ot J45.909 UNSPECIFIED ASTHMA, UNCOMPLICATED 07/09/2017 KARLIE ZHU MD Ot K21.9 GASTRO-ESOPHAGEAL REFLUX DISEASE WITHOUT 07/09/2017 KARLIE ZHU MD Ot R68.84 JAW PAIN 07/09/2017 KARLIE ZHU MD Ot Z77.22 CNTCT W AND EXPSR TO ENVIRON TOBACCO SMO 07/09/2017 KARLIE ZHU MD, Ot Z87.59 PERSONAL HISTORY OF COMP OF PREG, CHLDBR 07/09/2017 KARLIE ZHU MD, Ot Z90.13 ACQUIRED ABSENCE [...] APRN Ot R10.84 GENERALIZED ABDOMINAL PAIN 07/14/2017 AKYLA MELENDEZ APRN Ot Z87.59 PERSONAL HISTORY OF [...] G89.29 OTHER CHRONIC PAIN 07/26/2017 KAYLA MELENDEZ APRN Ot I10 ESSENTIAL (PRIMARY) HYPERTENSION 07/26/2017 KAYLA MELENDEZ APRN Ot K21.9 GASTRO-ESOPHAGEAL REFLUX DISEASE WITHOUT 07/26/2017 MELENDEZ, PETER J HANDKERCHIEF CUTTER Ot R51 HEADACHE 07/26/2017 KAYLA MELENDEZ HANDKERCHIEF CUTTER Ot Z87.59 PERSONAL HISTORY OF COMP OF PREG, CHLDBR 07/26/2017 KAYLA MELENDEZ HANDKERCHIEF CUTTER Ot Z90.13 ACQUIRED ABSENCE OF BILATERAL BREASTS AN 07/26/2017 KAYLA MELENDEZ HANDKERCHIEF CUTTER Ot Z90.49 ACQUIRED ABSENCE OF OTHER SPECIFIED PART 08/02/2017 KARENMADELINE Harding COOK FRUIT Ot C50.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 08/02/2017 KAREN, MADELINE COOK FRUIT Ot C79.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 08/02/2017 KAREN, MADELINE COOK FRUIT Ot E78.00 PURE HYPERCHOLESTEROLEMIA, UNSPECIFIED 08/02/2017 KAREN, MADELINE COOK FRUIT Ot F17.210 NICOTINE DEPENDENCE, CIGARETTES, UNCOMPL 08/02/2017 KAREN, MADELINE COOK FRUIT Ot F31.9 BIPOLAR DISORDER, UNSPECIFIED 08/02/2017 KAREN MADELINE COOK FRUIT Ot F41.9 ANXIETY DISORDER, UNSPECIFIED 08/02/2017 KAREN, MADELINE COOK FRUIT Ot 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) 08/02/2017 KAREN, MADELINE COOK FRUIT Ot I10 ESSENTIAL (PRIMARY) HYPERTENSION 08/02/2017 KAREN, MADELINE COOK FRUIT Ot J45.909 UNSPECIFIED ASTHMA, UNCOMPLICATED 08/02/2017 KAREN, MADELINE COOK FRUIT Ot K21.9 GASTRO-ESOPHAGEAL REFLUX DISEASE WITHOUT 08/02/2017 KAREN, MADELINE COOK FRUIT Ot K62.5 HEMORRHAGE OF ANUS AND RECTUM 08/02/2017 KAREN, MADELINE COOK FRUIT Ot M06.9 RHEUMATOID ARTHRITIS, UNSPECIFIED 08/02/2017 KAREN, MADELINE COOK FRUIT Ot R19.5 OTHER FECAL ABNORMALITIES 08/02/2017 KAREN, MADELINE COOK FRUIT Ot Z87.59 PERSONAL HISTORY OF COMP OF PREG, CHLDBR 08/02/2017 KAREN, MADELINE COOK FRUIT Ot Z90.13 ACQUIRED ABSENCE OF BILATERAL BREASTS AN 08/02/2017 KAREN MADELINE COOK FRUIT Ot Z90.89 ACQUIRED ABSENCE OF OTHER ORGANS 08/02/2017 KAREN, MADELINE COOK FRUIT Ot Z92.21 PERSONAL HISTORY OF ANTINEOPLASTIC CHEMO 08/04/2017 KAREN MADELINE COOK FRUIT Ot C50.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 08/04/2017 KAREN MADELINE COOK FRUIT Ot C79.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 08/04/2017 KARENMADELINE Harding COOK FRUIT Ot E78.00 PURE HYPERCHOLESTEROLEMIA, UNSPECIFIED 08/04/2017 KARENMADELINE HardingP Ot F17.210 NICOTINE DEPENDENCE, CIGARETTES, UNCOMPL 08/04/2017 KARENMADELINE HardingP Ot F31.9 BIPOLAR DISORDER, UNSPECIFIED 08/04/2017 KARENMADELINE Harding COOK FRUIT Ot F41.9 ANXIETY DISORDER, UNSPECIFIED 08/04/2017 KARENMADELINE HardingP Ot 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) 08/04/2017 KARENMADELINE HardingP Ot I10 ESSENTIAL (PRIMARY) HYPERTENSION 08/04/2017 KARENMADELINE HardingP Ot J45.909 UNSPECIFIED ASTHMA, UNCOMPLICATED 08/04/2017 KARENMADELINE HardingP Ot K21.9 GASTRO-ESOPHAGEAL REFLUX DISEASE WITHOUT 08/04/2017 KARENMADELINE HardingP Ot K62.5 HEMORRHAGE OF ANUS AND RECTUM 08/04/2017 KARENMADELINE HardingP Ot M06.9 RHEUMATOID ARTHRITIS, UNSPECIFIED 08/04/2017 KARENMADELINE HardingP Ot R19.5 OTHER FECAL ABNORMALITIES 08/04/2017 KARENMADELINE Harding COOK FRUIT Ot Z87.59 PERSONAL HISTORY OF COMP OF PREG, CHLDBR 08/04/2017 MADELINE JONESP Ot Z90.13 ACQUIRED ABSENCE OF BILATERAL BREASTS AN 08/04/2017 MADELINE JONESP Ot Z90.89 ACQUIRED ABSENCE OF OTHER ORGANS 08/04/2017 KARENMADELINE Harding COOK FRUIT Ot Z92.21 PERSONAL HISTORY OF ANTINEOPLASTIC CHEMO [...] DO Ot I10 ESSENTIAL (PRIMARY) HYPERTENSION 08/20/2017 EMILY MURPHY DO Ot J31.0 CHRONIC RHINITIS 08/20/2017 JEFFREY EMILY BALL Ot J45.909 UNSPECIFIED ASTHMA, UNCOMPLICATED 08/20/2017 EMILY MURPHY DO Ot K21.9 GASTRO-ESOPHAGEAL REFLUX DISEASE WITHOUT 08/20/2017 JEFFREY EMILY BALL Ot M06.9 RHEUMATOID ARTHRITIS, UNSPECIFIED 08/20/2017 JEFFREY EMILY BALL Ot R04.0 EPISTAXIS 08/20/2017 JEFFREY EMILY BALL Ot Z85.828 PERSONAL HISTORY OF OTHER MALIGNANT NEOP 08/20/2017 JEFFREY EMILY BALL Ot Z87.59 PERSONAL HISTORY OF COMP OF PREG, CHLDBR 08/20/2017 JEFFREY EMILY BALL Ot Z90.49 ACQUIRED ABSENCE OF OTHER SPECIFIED PART 09/26/2017 JEFFREY EMILY BALL Ot C44.90 UNSPECIFIED MALIGNANT NEOPLASM OF SKIN, 09/26/2017 EMILY MURPHY DO Ot C50.919 MALIGNANT NEOPLASM OF UNSP SITE OF UNSPE 09/26/2017 JEFFREY EMILY BALL Ot C79.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 09/26/2017 JEFFREY EMILY BALL Ot D64.81 ANEMIA DUE TO ANTINEOPLASTIC CHEMOTHERAP 09/26/2017 EMILY MURHPY DO Ot E78.00 PURE HYPERCHOLESTEROLEMIA, UNSPECIFIED 09/26/2017 JEFFREY EMILY BALL Ot F17.210 NICOTINE DEPENDENCE, CIGARETTES, UNCOMPL 09/26/2017 EMILY MURPHY DO Ot F31.9 BIPOLAR DISORDER, UNSPECIFIED 09/26/2017 JEFFREY EMILY BALL Ot F41.9 ANXIETY DISORDER, UNSPECIFIED 09/26/2017 JEFFREY EMILY BALL Ot F60.9 PERSONALITY DISORDER, UNSPECIFIED 09/26/2017 JEFFREY EMILY BALL Ot G89.29 OTHER CHRONIC PAIN 09/26/2017 EMILY MURPHY DO Ot I10 ESSENTIAL (PRIMARY) HYPERTENSION 09/26/2017 EMILY MURPHY DO Ot J00 ACUTE NASOPHARYNGITIS [COMMON COLD] 09/26/2017 EMILY MURPHY DO Ot J18.1 LOBAR PNEUMONIA, UNSPECIFIED ORGANISM 09/26/2017 EMILY MURPHY DO Ot K21.9 GASTRO-ESOPHAGEAL REFLUX DISEASE WITHOUT 09/26/2017 JEFFREY EMILY BALL Ot M06.9 RHEUMATOID ARTHRITIS, UNSPECIFIED 09/26/2017 JEFFREY EMILY K Ot M79.1 MYALGIA 09/26/2017 JEFFREY EMILY K Ot Z90.49 ACQUIRED ABSENCE OF OTHER SPECIFIED PART 09/26/2017 JEFFREY RAH BALLA K Ot Z91.14 PATIENT'S OTHER NONCOMPLIANCE WITH MEDIC 09/26/2017 JEFFREY RAH BALLA K Ot Z98.890 OTHER SPECIFIED POSTPROCEDURAL STATES 09/27/2017 JEFFREY EMILY K Ot C44.90 UNSPECIFIED MALIGNANT NEOPLASM OF SKIN, 09/27/2017 JEFFREY , EMILY K Ot C79.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 09/27/2017 JEFFREY EMILY K Ot C80.1 MALIGNANT (PRIMARY) NEOPLASM, UNSPECIFIE 09/27/2017 JEFFREY EMILY K Ot D64.81 ANEMIA DUE TO ANTINEOPLASTIC CHEMOTHERAP 09/27/2017 JEFFREY EMILY K Ot E78.00 PURE HYPERCHOLESTEROLEMIA, UNSPECIFIED 09/27/2017 JEFFREY EMILY K Ot F17.210 NICOTINE DEPENDENCE, CIGARETTES, UNCOMPL 09/27/2017 JEFFREY EMILY K Ot F31.9 BIPOLAR DISORDER, UNSPECIFIED 09/27/2017 JEFFREY EMILY K Ot F41.9 ANXIETY DISORDER, UNSPECIFIED 09/27/2017 JEFFREY EMILY K Ot F60.9 PERSONALITY DISORDER, UNSPECIFIED 09/27/2017 JEFFREY EMILY K Ot I10 ESSENTIAL (PRIMARY) HYPERTENSION 09/27/2017 JEFFREY EMILY K Ot J00 ACUTE NASOPHARYNGITIS [COMMON COLD] 09/27/2017 JEFFREY EMILY K Ot J18.1 LOBAR PNEUMONIA, UNSPECIFIED ORGANISM 09/27/2017 JEFFREY EMILY K Ot K21.9 GASTRO-ESOPHAGEAL REFLUX DISEASE WITHOUT 09/27/2017 JEFFREY EMILY K Ot M06.9 RHEUMATOID ARTHRITIS, UNSPECIFIED 09/27/2017 JEFFREY EMILY K Ot Z90.49 ACQUIRED ABSENCE OF OTHER SPECIFIED PART 09/27/2017 JEFFREY EMILY K Ot Z91.14 PATIENT'S OTHER NONCOMPLIANCE WITH MEDIC 09/27/2017 JEFFREY EMILY K Ot Z98.890 OTHER SPECIFIED POSTPROCEDURAL STATES 10/03/2017 KAYLA MELENDEZ APRN Ot C50.919 MALIGNANT NEOPLASM OF UNSP SITE OF UNSPE 10/03/2017 KAYLA MELENDEZ APRN Ot C79.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 10/03/2017 KAYLA MELENDEZ APRN Ot D64.9 ANEMIA, UNSPECIFIED 10/03/2017 KAYLA MELENDEZ APRN Ot E78.00 PURE HYPERCHOLESTEROLEMIA, UNSPECIFIED 10/03/2017 KAYLA MELENDEZ APRN Ot F31.9 BIPOLAR DISORDER, UNSPECIFIED 10/03/2017 KAYLA MELENDEZ APRN Ot F41.9 ANXIETY DISORDER, UNSPECIFIED 10/03/2017 KAYLA MELENDEZ APRN Ot I10 ESSENTIAL (PRIMARY) HYPERTENSION 10/03/2017 KAYLA MELENDEZ APRN Ot J45.909 UNSPECIFIED ASTHMA, UNCOMPLICATED 10/03/2017 KAYLA MELENDEZ APRN Ot K21.9 GASTRO-ESOPHAGEAL REFLUX DISEASE WITHOUT 10/03/2017 KAYLA MELENDEZ APRN Ot M06.9 RHEUMATOID ARTHRITIS, UNSPECIFIED 10/03/2017 KAYLA MELENDEZ APRN Ot R06.02 SHORTNESS OF BREATH 10/03/2017 KAYLA MELENDEZ APRN Ot Z77.22 CNTCT W AND EXPSR TO ENVIRON TOBACCO SMO 10/03/2017 KAYLA MELENDEZ APRN Ot Z87.01 PERSONAL HISTORY OF PNEUMONIA (RECURRENT 10/03/2017 KAYLA MELENDEZ APRN Ot Z90.13 ACQUIRED ABSENCE OF BILATERAL BREASTS AN 10/03/2017 KAYLA MELENDEZ APRN Ot Z90.89 ACQUIRED ABSENCE OF OTHER ORGANS 10/03/2017 KAYLA MELENDEZ APRN Ot Z92.21 PERSONAL HISTORY OF ANTINEOPLASTIC CHEMO 10/05/2017 KAYLA MELENDEZ APRN Ot C50.919 MALIGNANT NEOPLASM OF UNSP SITE OF UNSPE 10/05/2017 KAYLA MELENDEZ APRN Ot C79.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 10/05/2017 KAYLA MELENDEZ APRN Ot D64.9 ANEMIA, UNSPECIFIED 10/05/2017 KAYLA MELENDEZ APRN Ot E78.00 PURE HYPERCHOLESTEROLEMIA, UNSPECIFIED 10/05/2017 KAYLA MELENDEZ APRN Ot F31.9 BIPOLAR DISORDER, UNSPECIFIED 10/05/2017 KAYLA MELENDEZ APRN Ot F41.9 ANXIETY DISORDER, UNSPECIFIED 10/05/2017 KAYLA MELENDEZ HANDKERCHIEF CUTTER Ot I10 ESSENTIAL (PRIMARY) HYPERTENSION 10/05/2017 KAYLA MELENDEZ APRN Ot J45.909 UNSPECIFIED ASTHMA, UNCOMPLICATED 10/05/2017 KAYLA MELENDEZ APRN Ot K21.9 GASTRO-ESOPHAGEAL REFLUX DISEASE WITHOUT 10/05/2017 KAYLA MELENDEZ APRN Ot M06.9 RHEUMATOID ARTHRITIS, UNSPECIFIED 10/05/2017 KAYLA MELENDEZ APRN Ot R06.02 SHORTNESS OF BREATH 10/05/2017 KAYLA MELENDEZ APRN Ot Z77.22 CNTCT W AND EXPSR TO ENVIRON TOBACCO SMO 10/05/2017 KAYLA MELENDEZ APRN Ot Z87.01 PERSONAL HISTORY OF PNEUMONIA (RECURRENT 10/05/2017 KAYLA MELENDEZ APRN Ot Z90.13 ACQUIRED ABSENCE OF BILATERAL BREASTS AN 10/05/2017 KAYLA MELENDEZ APRN Ot Z90.89 ACQUIRED ABSENCE OF OTHER ORGANS 10/05/2017 KAYLA MELENDEZ APRN Ot Z92.21 PERSONAL HISTORY OF ANTINEOPLASTIC CHEMO 01/12/2018 ANAIS MEREDITH MD Ot C50.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 01/12/2018 ANAIS MEREDITH MD Ot E66.9 OBESITY, UNSPECIFIED 01/12/2018 ANAIS MEREDITH MD Ot E78.5 HYPERLIPIDEMIA, UNSPECIFIED 01/12/2018 ANAIS MEREDITH MD Ot F17.210 NICOTINE DEPENDENCE, CIGARETTES, UNCOMPL 01/12/2018 ANAIS MEREDITH MD Ot F31.9 BIPOLAR DISORDER, UNSPECIFIED 01/12/2018 ANAIS MEREDITH MD Ot I10 ESSENTIAL (PRIMARY) HYPERTENSION 01/12/2018 ANAIS MEREDITH MD Ot J44.9 CHRONIC OBSTRUCTIVE PULMONARY DISEASE, U 01/12/2018 ANAIS MEREDITH MD Ot Z17.0 ESTROGEN RECEPTOR POSITIVE STATUS [ER+] 01/12/2018 ANAIS MEREDITH MD Ot Z51.0 ENCOUNTER FOR ANTINEOPLASTIC RADIATION T 01/12/2018 ANAIS MEREDITH MD Ot Z68.34 BODY MASS INDEX (BMI) 34.0-34.9, ADULT 01/12/2018 ANAIS MEREDITH MD Ot Z79.899 OTHER CLEAT BLANKER (CURRENT) DRUG THERAPY 01/12/2018 ADE FOWLER Ot Z51.81 ENCOUNTER FOR THERAPEUTIC DRUG LEVEL MON 01/12/2018 ADE FOWLER Ot Z79.899 OTHER CLEAT BLANKER (CURRENT) DRUG THERAPY 03/18/2018 ADE FOWLER Ot Z51.81 ENCOUNTER FOR THERAPEUTIC DRUG LEVEL MON 03/18/2018 ADE FOWLER Ot Z79.899 OTHER CLEAT BLANKER (CURRENT) DRUG THERAPY 03/18/2018 ADE FOWLER Ot Z51.81 ENCOUNTER FOR THERAPEUTIC DRUG LEVEL MON 03/18/2018 ADE FOWLER Ot Z79.899 OTHER CUSTODIAL (CURRENT) DRUG THERAPY Procedures There is no [...] INFLUENZA A AND B ANTIGENS BY IA [facility] Bacterial blood culture - 05/24/16 19:47 Bacterial blood culture [facility] Complete blood count (CBC) with automated white [...] culture - 05/24/16 20:59 Bacterial urine culture [id number] NRG COLONY COUNT >100,000/ML NRG FTX;REPORTABLE PLUS, [...] NRG Blood erythrocyte morphology finding identification NORMAL [facility] Comprehensive metabolic panel - 05/26/16 13:34 [...] 0.0-0.1 Whole blood basic metabolic panel - 05/22/17 09:14 Serum or plasma sodium measurement (moles/volume) [...] identification NORMAL NRG Bacterial blood culture - 09/25/17 18:45 Bacterial blood culture NG NRG Bacterial blood culture - 09/25/17 19:11 Bacterial blood culture NG NRG Complete blood count (CBC) with automated white blood cell (WBC) differential - 10/03/17 14:01 Blood leukocytes automated count (number/volume) 5.5 10*3/uL 4.3-11.0 Blood erythrocytes automated count (number/volume) 4.51 10*6/uL 4.35-5.85 Venous blood hemoglobin measurement (mass/volume) 13.2 g/dL 11.5-16.0 Blood hematocrit (volume fraction) 39 % 35-52 Automated erythrocyte mean corpuscular volume 86 [foz_us] 80-99 Automated erythrocyte mean corpuscular hemoglobin (mass per erythrocyte) 29 pg 25-34 Automated erythrocyte mean corpuscular hemoglobin concentration measurement ( mass/volume) 34 g/dL 32-36 Automated erythrocyte distribution width ratio 15.5 % 10.0-14.5 Automated blood platelet count (count/volume) 200 10*3/uL 130-400 Automated blood platelet mean volume measurement 9.8 [foz_us] 7.4-10.4 Automated blood neutrophils/100 leukocytes 66 % 42-75 Automated blood lymphocytes/100 leukocytes 22 % 12-44 Blood monocytes/100 leukocytes 8 % 0-12 Automated blood eosinophils/100 leukocytes 4 % 0-10 Automated blood basophils/100 leukocytes 1 % 0-10 Blood neutrophils automated count (number/volume) 3.6 10*3 1.8-7.8 Blood lymphocytes automated count (number/volume) 1.2 10*3 1.0-4.0 Blood monocytes automated count (number/volume) 0.4 10*3 0.0-1.0 Automated eosinophil count 0.2 10*3/uL 0.0-0.3 Automated blood basophil count (count/volume) 0.1 10*3/uL 0.0-0.1 Blood lactic acid measurement (moles/volume) - 10/03/17 14:01 Blood lactic acid measurement (moles/volume) 0.65 mmol/L 0.50-2.00 Comprehensive metabolic panel - 10/03/17 14:01 Serum or plasma sodium measurement (moles/volume) 141 mmol/L 135-145 Serum or plasma potassium measurement (moles/volume) 2.7 mmol/L 3.6-5.0 Serum or plasma chloride measurement (moles/volume) 117 mmol/L 98-107 Carbon dioxide 19 mmol/L 21-32 Serum or plasma anion gap determination (moles/volume) 5 mmol/L 5-14 Serum or plasma urea nitrogen measurement (mass/volume) 3 mg/dL 7-18 Serum or plasma creatinine measurement (mass/volume) 0.41 mg/dL 0.60-1.30 Serum or plasma urea nitrogen/creatinine mass ratio 7 NRG Serum or plasma creatinine measurement with calculation of estimated glomerular filtration rate > NRG Serum or plasma glucose measurement (mass/volume) 72 mg/dL 70-105 Serum or plasma calcium measurement (mass/volume) 6.2 mg/dL 8.5-10.1 Serum or plasma total bilirubin measurement (mass/volume) 0.3 mg/dL 0.1-1.0 Serum or plasma alkaline phosphatase measurement (enzymatic activity/volume) 43 U/L 40-136 Serum or plasma aspartate aminotransferase measurement (enzymatic activity/ volume) 16 U/L 5-34 Serum or plasma alanine aminotransferase measurement (enzymatic activity/volume ) 11 U/L 0-55 Serum or plasma protein measurement (mass/volume) 4.4 g/dL 6.4-8.2 Serum or plasma albumin measurement (mass/volume) 2.5 g/dL 3.2-4.5 CALCIUM CORRECTED 7.4 mg/dL 8.5-10.1 Magnesium - 10/03/17 14:01 Magnesium 1.2 mg/dL 1.8-2.4 Bacterial blood culture - 10/03/17 14:01 Bacterial blood culture NG NRG Bacterial blood culture - 10/03/17 14:31 Bacterial blood culture NG NRG Encounters ACCT No. Visit Date/Time Discharge Status Pt. Type Provider Facility Loc./Unit Complaint [id number] 03/18/2018 12:43:00 03/18/2018 14:23:00 DIS Emergency NOELLE MAK MD [facility] ER SOB [id number] 10/03/2017 13:46:00 10/03/2017 17:30:00 DIS Emergency KAYLA MELENDEZ APRN [facility] ER RESPI. DISTRESS [id number] 09/25/2017 18:35:00 09/26/2017 08:30:00 DIS Emergency EMILY MURPHY DO [facility] ER CHILLS/HOT [id number] 08/20/2017 09:31:00 08/20/2017 10:45:00 DIS Emergency EMILY MURPHY DO [facility] ER NOSE BLEED [id number] 08/02/2017 09:09:00 08/02/2017 12:06:00 DIS Emergency MADELINE JONES [facility] ER BLOOD IN HER STOOL [id number] 07/26/2017 17:31:00 07/26/2017 18:51:00 DIS Emergency KAYLA MELENDEZ APRN [facility] ER GENERAL PAIN [id number] 07/12/2017 20:13:00 07/12/2017 22:30:00 DIS Emergency KAYLA MELENDEZ APRN [facility] ER FALL, ABD PAIN [id number] 07/09/2017 17:00:00 07/09/2017 19:23:00 DIS Emergency MARKO MURRAY, KARLIE Owens [facility] ER PT HAS BRAIN TUMOR, PAIN ALL OVER,JAW PAIN [id number] 07/04/2017 09:02:00 07/04/2017 11:29:00 DIS Emergency ZEKE ARCHER MD [facility] ER ABD PAIN AFTER PICC LINE PLACED [id number] 06/29/2017 11:27:00 06/29/2017 13:35:00 DIS Emergency KAYLA MELENDEZ HANDKERCHIEF CUTTER [facility] ER ELEVATED WBC [id number] 06/03/2017 11:53:00 06/03/2017 13:57:00 DIS Emergency KAYLA MELENDEZ APRN [facility] ER JAW PAIN [id number] 05/21/2017 08:03:00 05/21/2017 11:13:00 DIS Emergency AUBREE MURRAY, NOELLE Lazar [facility] ER CHEST PAIN [id number] 05/20/2017 03:45:00 05/20/2017 06:00:00 DIS Emergency EMILY MURPHY DO [facility] ER WOLF [id number] 03/30/2017 00:29:00 03/30/2017 23:59:59 CLS Ana MEREDITH MD, ANAIS Harding [facility] ONC [id number] 01/12/2017 09:52:00 03/29/2017 00:01:00 DIS Outpatient OMI MURRAY, EULOGIO [facility] ONC [id number] 03/27/2017 10:40:00 03/27/2017 14:16:00 DIS Emergency MARKO MURRAY, KARLIE Owens [facility] ER BRAIN TUMOR/HEAD PAIN/ L SIDE PAIN [id number] 01/07/2017 14:47:00 01/07/2017 18:14:00 DIS Emergency KAYLA MELENDEZ HANDKERCHIEF CUTTER [facility] ER N/V [id number] 12/29/2016 09:50:00 12/29/2016 11:15:00 DIS Emergency JEFFREY DO, EMILY K [facility] ER MIGRAINES,NOSEBLEEDS [id number] 07/20/2016 15:28:00 10/18/2016 00:01:00 DIS Outpatient OMI MURRAY, EULOGIO [facility] ONC [id number] 06/28/2016 08:24:00 06/28/2016 10:05:00 DIS Emergency SEVERO MURRAY, YANG Nassar [facility] ER BREAST AREA PAIN/ BLISTED/BLEEDING FROM RADIATION [id number] 06/24/2016 09:48:00 06/24/2016 23:59:59 CLS Outpatient EULOGIO BRAGA MD [facility] ONC [id number] 05/26/2016 12:42:00 05/26/2016 15:18:00 DIS Emergency MARKO MURRAY, KARLIE Owens [facility] ER RECTAL BLEEDING/PAIN [id number] 05/24/2016 20:35:00 05/25/2016 13:15:00 DIS Inpatient TERRI MURRAY, ABAD Cifuentes [facility] 4TH FEVER,BRONCHITIS,HYPOXIA, BREAST CA-ON CHEMO AND RA [id number] 03/04/2016 10:37:00 03/04/2016 11:16:00 DIS Emergency KAYLA MELENDEZ APRN [facility] ER PAIN/SWELLING RIGHT BREAST AREA [id number] 03/01/2016 10:03:00 03/01/2016 23:59:59 CLS Outpatient ADE FOWLER [facility] LAB Z79.899 [id number] 02/16/2016 08:21:00 02/16/2016 12:11:00 DIS Emergency EDIL QURESHI [facility] ER ANXIETY, NEEDING PORT FLUSHED [id number] 05/13/2015 08:02:00 07/30/2015 00:01:00 DIS Outpatient CEE ALSTON MD [facility] ONC [id number] 05/01/2015 11:17:00 05/01/2015 23:59:59 CLS Outpatient CEE ALSTON MD [facility] CARD BREAST CANCER [id number] 04/22/2015 11:06:00 04/22/2015 23:59:59 CLS Preadmit SANDRA TANG [facility] ONC [id number] 04/07/2015 10:59:00 04/14/2015 00:01:00 DIS Outpatient CEE ALSTON MD [facility] ONC [id number] 04/07/2015 11:51:00 04/07/2015 23:59:59 CLS Outpatient SANDRA TANG [facility] ONC [id number] 04/07/2015 11:17:00 04/07/2015 23:59:59 CLS Outpatient CEE ALSTON MD [facility] CARD BREAST CANCER [id number] 03/19/2015 08:29:00 03/19/2015 13:05:00 DIS Outpatient CAM BRAGA MD [facility] SDC RIGHT BREAST CANCER [id number] 03/17/2015 06:12:00 03/17/2015 23:59:59 CLS Outpatient CAM BRAGA MD [facility] PREOP RIGHT BREAST CANCER [id number] 02/17/2015 10:18:00 02/17/2015 23:59:59 CLS Outpatient CEE ALSTON MD [facility] 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 [id number] 01/24/2015 13:52:00 01/24/2015 23:59:59 CLS Outpatient CEE ALSTON MD [facility] CARD ENCOUNTER FOR MONITORING CARDIOTOXIC DRUGS [id number] 01/23/2015 14:18:00 01/23/2015 23:59:59 CLS Outpatient SANDRA TANG [facility] ONC [id number] 01/23/2015 09:31:00 01/23/2015 23:59:59 CLS Outpatient CEE ALSTON MD [facility] RAD BREAST CA [id number] 01/22/2015 14:57:00 01/22/2015 23:59:59 CLS Outpatient CEE ALSTON MD [facility] RAD ABN MAMMO [id number] 01/17/2015 09:42:00 01/17/2015 23:59:59 CLS Outpatient CEE ALSTON MD [facility] CARD ENCOUNTER FOR MONITOR CARDIO TOXIC DRUG THERAPY [id number] 01/17/2015 09:38:00 01/17/2015 17:00:00 DIS [facility] [id number] 01/15/2015 13:52:00 01/15/2015 23:59:59 CLS Outpatient SHERRY ROGEL MD (DDU) [facility] RT DDU [id number] 01/15/2015 05:43:00 01/15/2015 23:59:59 CLS Outpatient CAM BRAGA MD [facility] PREOP [id number] 01/03/2015 07:05:00 01/03/2015 23:59:59 CLS Outpatient DARÍO BURROWS HANDKERCHIEF CUTTER [facility] RAD ABNORMAL MAMMO, BREAST MASS [id number] 01/01/2015 14:58:00 01/01/2015 23:59:59 CLS Outpatient DARÍO BURROWS HANDKERCHIEF CUTTER [facility] RAD BREAST PAIN RT BREAST [id number] 12/25/2014 16:08:00 12/25/2014 17:23:00 DIS Emergency KAYLA MELENDEZ HANDKERCHIEF CUTTER [facility] ER R BREAST SWELLING/ TENDERNESS [id number] 12/19/2014 08:51:00 12/19/2014 11:43:00 DIS Emergency REGINALDO ANNA MD [facility] ER COUGH/FEVER [id number] 11/21/2014 11:43:00 11/21/2014 13:07:00 DIS Emergency KAYLA MELENDEZ HANDKERCHIEF CUTTER [facility] ER SOA [id number] 11/08/2014 14:38:00 11/08/2014 16:53:00 DIS Emergency REGINALDO ANNA MD [facility] ER SOA [id number] 10/28/2014 14:21:00 10/28/2014 23:59:59 CLS Outpatient DARÍO BURROWS HANDKERCHIEF CUTTER [facility] RAD LOCALIZE SWELLING MASS OR HEAD 3 ABNORMAL GROWTHS [id number] 10/11/2014 09:35:00 10/11/2014 10:09:00 DIS Emergency WILFRIDO MURRAY, REGINALDO Pryor [facility] ER RASH [id number] 09/27/2014 09:09:00 09/27/2014 10:19:00 DIS Emergency MARKO MURRAY, KARLIE Owens [facility] ER
== END 2018-03-18 14:23 | disposition home or self-care (01) ==
LOC: EDUNIT# 12:42 → ER 12:43
DX: R06.02 Shortness of breath (principal); J44.9 Chronic obstructive pulmonary disease, unspecified; E78.00 Pure hypercholesterolemia, unspecified; I10 Essential (primary) hypertension; K21.9 Gastro-esophageal reflux disease without esophagitis; M06.9 Rheumatoid arthritis, unspecified; C50.919 Malignant neoplasm of unspecified site of unspecified female breast; C79.31 Secondary malignant neoplasm of brain; F31.9 Bipolar disorder, unspecified; F41.9 Anxiety disorder, unspecified; F60.9 Personality disorder, unspecified; D64.9 Anemia, unspecified; Z77.22 Contact with and (suspected) exposure to environmental tobacco smoke (acute) (chronic); Z90.49 Acquired absence of other specified parts of digestive tract; Z85.828 Personal history of other malignant neoplasm of skin; Z92.21 Personal history of antineoplastic chemotherapy; Z98.890 Other specified postprocedural states; Z90.13 Acquired absence of bilateral breasts and nipples
CPT/HCPCS: 36415; 71045; 80053; 85025; 85379; 94640

== ENCOUNTER 2018-03-22 17:22 | Emergency (ER) | payer MEDICAID ==
[~2018-03-22] VITALS: Ht 165.1 cm; Wt 71.7 kg
--- OUTSIDE RECORDS SUMMARY | 2018-03-22 17:28 | XMS REPORT | Encounter Summary ---
Author Author [facility] Organization [facility] Address Unknown Phone Unavailable Care Team Providers Care Ophthalmic Lens Inspector Name Role Phone Porfirio Spence MD PCP Reason for Referral * Consult, Test & Treat (Routine) Referred By Contact Referred To Contact Status Reason Specialty Diagnoses / [place] [address] [place] [id number] [facility] [place] [address] [address] Closed Specialty Services Radiation Diagnoses Required Therapy Inflammatory carcinoma of right breast (HCC) Abnormal MRI of the head Scheduling Instructions This referral requires a phone call to schedule with Radiation Oncology. See locations below: CC RADIATION THERAPY: [facility] RAD THER: [facility] RAD THER: [facility] RAD THER: Reason for Visit * Reason Comments Follow-up Phone Call Encounter Details Care Team Description [place] [address] [place] [address] [phone] Follow-up Phone Call 12/28/2017 Telephone [facility] - OP Exam [id number] [place] [phone] Social History Date Tobacco Use Types Packs/Day [...] Gabe Alexis RN - 12/28/2017 1:09 PM PROCESS PUMPER Talked with the pt and she confirmed keeping all her Kadcyla treatment appointment at [facility]. Pt would like to see radiation oncologist at OP location. Referral order sent to scheduling. Pt is aware the office is closed until next week. ----- Message from Seth Lopez MD sent at 12/27/2017 5:54 PM PROCESS PUMPER ---- - 12/27/2017 tried calling patient to discuss results. Please call the patient and let her know that her MRI of the head looks slightly worse than in June. Please try to find out whether she needed to most of her Kadcyla appointments at [facility] on time or whether she had missed [...] me know if you find out please ESS PUMPER in this encounter Plan of Treatment Order [...]
--- OUTSIDE RECORDS SUMMARY | 2018-03-22 17:28 | XMS REPORT | Encounter Summary ---
Author Author [facility] Organization [facility] Address Unknown Phone Unavailable Care Team Providers Care Flame Degreaser Name Role Phone Porfirio Spence MD PCP Agustina Vines DO Unavailable Encounter Details Care Team Description Date [place] [address] [address] [phone] 01/24/2018 Orders Only [facility] - OP Exam [address] [id number] Social History Date Tobacco Use [...] * Angelika Crawford - 01/24/2018 10:13 AM CLAIMS ATTORNEY LEFT [facility] APPT. MUST BRING SOMEONE TO APT PER MS ATTORNEY * Gabe Alexis, BARRY - 01/24/2018 10:13 AM CLAIMS ATTORNEY Verbal order received from Dr Lopez for follow up visit with her family to discuss her care. Scheduling notified. and pt. instructed she should have someone come in with her for this appointment. Pt verbalized understanding. MS ATTORNEY in this encounter Plan of Treatment Not on fileas of this encounter Visit Diagnoses Not on filein this encounter
--- OUTSIDE RECORDS SUMMARY | 2018-03-22 17:28 | XMS REPORT | Clinical Summary ---
Author Author [facility] Organization [facility] Address Unknown Phone Unavailable Care Team Providers Care Alum Plant Operator Name Role Phone Porfirio Spence MD PCP Agustina Vines DO Unavailable Source Comments Some departments are not documenting in the electronic medical record. 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%, stage T4 N2 M0 01/27/2015 neoadjuvant Adriamycin and Cytoxan 4 cycles followed by Taxotere/Herceptin/Perjeta Tums 4 cycles, AC begun this date 03/19/2015 wedge biopsy right breast [facility] diagnosis inflammatory carcinoma of breast 03/31/2015 fourth AC 05/01/2015--07/10/2015 completed 4 cycles THP 08/05/2015 bilateral breast mastectomies at [facility] diagnosis: Left breast no evidence of malignancy, [...] 12/30/2016--01/12/2017 whole brain radiation therapy 10 fractions [facility] 01/17/2017 [facility] nuclear medicine bone scan impression metastatic [...] transfer of care to Agustina vines at [facility] 06/21/[address] had neck chest abdomen at [facility]: Changes of bilateral mastectomy. No recurrent chest wall masses identified. No evidence of regional or distant metastatic disease. Small amount of radiopharmaceutical uptake surrounding the tip of the chest port. 06/21/2017 [facility] MRI head: Heterogeneously enhancing right frontal lobe [...] that no calvarial lesion seen 07/12/2017 [facility] emergency room CT abdomen pelvis no acute intra-abdominal findings are demonstrated. No mention of changes worrisome for metastatic disease. 06/27/2017 [facility] Agustina Vines comment made the patient will return for second dose of Kadcyla 07/26/2017 [facility] CT head, overall stable noncontrast CT the brain when compared to 05/20/2017. Right frontal lobe and left cerebellar abnormalities are stable. No new abnormality is detected. 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 Note that on the MRI dated 06/21/2017 nice they specifically said no calvarial lesions. The CT head done on 07/26/2017 does not mention bony disease. Mentioned ordering PET CT and MRI head 11/28/2017 first [facility] clinic visit, talked about checking PET/CT and [...] doxil, trial tamox or arimidex, hormonal if clutch assembler Personality disorder 09/10/2014 Depressive disorder, not elsewhere [...] Name Comments Mental Illness Son lives in [place] with his father. Relation Name Status Comments [...] Taken Vital Sign Reading 01/24/2018 8:43 AM REFERRAL COORDINATOR Blood Pressure 151/99 01/24/2018 8:43 AM REFERRAL COORDINATOR Pulse 84 01/24/2018 8:43 AM REFERRAL COORDINATOR Temperature 36.7 C (98 F) 01/24/2018 8:43 AM REFERRAL COORDINATOR Respiratory Rate 18 01/24/2018 8:43 AM REFERRAL COORDINATOR Oxygen Saturation 97% - Inhaled Oxygen - Concentration 01/24/2018 8:43 AM REFERRAL COORDINATOR Weight 69 kg (152 lb 3.2 oz) 01/24/2018 8:43 AM REFERRAL COORDINATOR Height 165.1 cm (5' 5") 01/24/2018 8:43 AM REFERRAL COORDINATOR Body Mass Index 25.33 Plan of Treatment [...] Routine 12/22/2017 Inflammatory carcinoma of 4:10 PM REFERRAL COORDINATOR right breast (HCC) 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 on 12/22/2017 5:39 PM. Dictated by Yosef Hwang DO on 12/22/2017 4:38 PM.Addendum: Reason for addendum: Comparison images were clouded for review after the initial interpretation and occupational health and safety manager on 12/22/2017. Comparison: External brain MRI dated [...] Interface, Radiant Results - 12/27/2017 10:30 AM REFERRAL COORDINATOR EXAM: MRI BRAIN HISTORY: Monitor breast cancer [...] City/State/Zipcode Phone Number [facility] RESULTS * OR PET SCAN [place] (SKULL-THIGHS) (12/22/2017 2:51 PM REFERRAL COORDINATOR) Impressions Performed At 1. Intracranial metastatic disease [...] on 12/22/2017 3:04 PM. Narrative Performed At OR PET SCAN [place] (SKULL-THIGHS) [facility] RESULTS [...] The current mean hepatic SUV (reported for supplier quality engineering manager purposes) is 1.8. Blood glucose level [...] Interface, Radiant Results - 12/22/2017 4:06 PM REFERRAL COORDINATOR NM PET SCAN [place] (SKULL-THIGHS) Radiopharmaceutical: 11.8 [...] The current mean hepatic SUV (reported for supplier quality engineering manager purposes) is 1.8. Blood glucose level [...] PM. Performing Organization Address City/State/Zipcode Phone Number [facility] RAD RESULTS * POC GLUCOSE (12/22/2017 1:19 PM REFERRAL COORDINATOR) Glucose, POC 85 70 - 100 MG/DL [facility] Performing Organization Address City/State/Zipcode Phone Number MAIN LAB [address] [place] [address] from Last 3 Months Insurance Payer Benefit Subscriber ID Type Phone Address Plan / Group MEDICARE MEDICARE xxxxxxxxxxx Medicare PART A AND B [facility] MEDICAID [place] [facility] xxxxxxxxxxx Medicaid [employer] [place] [facility] xxxxxxxxxx [facility]ALF Advance Directives Patient has advance care planning documents on file. For more information, please contact: [facility] [address] [place] [address]
--- OUTSIDE RECORDS SUMMARY | 2018-03-22 17:28 | XMS REPORT | Encounter Summary ---
Author Author [facility] Organization [facility] Address Unknown Phone Unavailable Care Team Providers Care Associate Principal Name Role Phone Porfirio Spence MD PCP Agustina Vines DO Unavailable Reason for Visit * Reason Comments Care Coordination patient called to discuss upcoming appt Encounter Details Care Team Description Date [place] [address] [address] [phone] Care Coordination (patient called to discuss upcoming appt ) 01/27/2018 Telephone [facility] - OP Exam [address] [address] Social History Date Tobacco Use [...] Liliana Monroy RN - 01/27/2018 10:45 AM ASPHALT PLANT OPERATOR Patient called to inquire what her upcoming [...] stated that her friend who is an COMPENSATOR can take good care of her and she will live with her. Informed patient that this RN would confer with Dr. Lopez and get back to her. No further questions at this time. ALT PLANT OPERATOR in this encounter Plan of Treatment Not on fileas of this encounter Visit Diagnoses Not on filein this encounter
--- OUTSIDE RECORDS SUMMARY | 2018-03-22 17:28 | XMS REPORT | Encounter Summary ---
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 Office Visit Cancer Center - OP Radiation Therapy [address] [address] Social History Date Tobacco Use Types Packs/Day [...] Taken Vital Sign Reading 01/24/2018 8:43 AM AMBULANCE PARAMEDIC Blood Pressure 151/99 01/24/2018 8:43 AM AMBULANCE PARAMEDIC Pulse 84 01/24/2018 8:43 AM AMBULANCE PARAMEDIC Temperature 36.7 C (98 F) 01/24/2018 8:43 AM AMBULANCE PARAMEDIC Respiratory Rate 18 01/24/2018 8:43 AM AMBULANCE PARAMEDIC Oxygen Saturation 97% - Inhaled Oxygen - Concentration 01/24/2018 8:43 AM AMBULANCE PARAMEDIC Weight 69 kg (152 lb 3.2 oz) 01/24/2018 8:43 AM AMBULANCE PARAMEDIC Height 165.1 cm (5' 5") 01/24/2018 8:43 AM AMBULANCE PARAMEDIC Body Mass Index 25.33 in this encounter [...] Tonja Aguilera MD - 01/24/2018 9:00 AM AMBULANCE PARAMEDIC Radiation Oncology Consultation Date: 01/24/2018 Jeanette Ovalle is a 52 y.o. female. [facility]ing [facility] The primary encounter diagnosis was [...] on 07/28/2015 she underwent bilateral mastectomies at [facility] in [facility]. There was no evidence of disease reported and she continued on Herceptin. She received postmastectomy radiation therapy at that time, and treatment was delivered at [facility] in [facility]. Her radiation therapy was complete June 2016. A CT scan of the head was performed [facility] in December 2016 and the patient was found to have [employer] metastasis. She completed treatment to the whole brain 01/12/2017. A total dose of 3000 cGy was delivered in 10 fractions. Following treatment to the whole brain she started Xeloda and lapatinib. She ultimately transferred her care to Dr. Agustina Vines at [facility] and most recently she had a PET/CT [...] cancer, left (HCC) 01/03/2015 infiltrating lobular carcinoma ER/ND 0, HER-2 + and Ki-67=15%. [facility] in [place] Cancer of cervix (HCC) 1984 COPD (chronic obstructive pulmonary disease) (HCC) Genetic testing 04/2015 negative per patient.(done in [place] GERD (gastroesophageal reflux disease) History of [...] noncompliant with treatment. Dr Robert Shaffer in [place], [place] Hx of radiation therapy 12/30/2016-01/12/2017 Whole brain treated with [address] Robert Shaffer in [place], [place] 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 Dr Rosario at [facility] in [place], [place] TUNNELED VENOUS PORT REMOVAL 07/2016 SECTION [...] due to her malignancy. She lives in [facility]. She is and lives alone. Her daughter recently moved to [facility] and her son does have some [...] of Onset Mental Illness Son lives in [place] with his father. Review of Systems Constitutional: [...] demonstrated that the tumor was ER 0 ND 0 HER-2 positive Ki-67 15%. ASSESSMENT: RECOMMENDATIONS: [...] of my time was spent in counseling LANCE PARAMEDIC in this encounter Plan of Treatment Not [...]
--- OUTSIDE RECORDS SUMMARY | 2018-03-22 17:28 | XMS REPORT | Encounter Summary ---
Author Author [facility] Organization [facility] Address Unknown Phone Unavailable Care Team Providers Care Incendiaries Supervisor Name Role Phone Porfirio Spence MD PCP Agustina Vines DO Unavailable Reason for Visit * Reason Comments Follow-up Phone Call Encounter Details Care Team Description Date [place] [address] [id number] Follow-up Phone Call 01/12/2018 Telephone [facility] - OP Exam [address] [address] Social History Date Tobacco Use [...] Gabe Alexis RN - 01/12/2018 11:15 AM ENAMEL APPLIER Pt called to find out if her appointment with Dr Aguilera rad/onc can be moved up from 01/24/18. Checked with the rad/onc clinic scheduler and Dr Aguilera's nurse and there are no availability before 01/24/18. Pt notified and request to see her previous rad/onc Dr Robert Shaffer at [facility] in [place]. Discussed pt request with Dr Lopez and agreed with request. Contact Dr Shaffer nurse Alethea. Request the records including recent MRI report fax to [phone] and she will discuss report with Dr Shaffer and call the pt to schedule follow up appointment. Records fax and pt notified. EL APPLIER in this encounter Plan of Treatment Not on fileas of this encounter Visit Diagnoses Not on filein this encounter
--- OUTSIDE RECORDS SUMMARY | 2018-03-22 17:28 | XMS REPORT | Encounter Summary ---
Author Author [facility] Organization [facility] Address Unknown Phone Unavailable Care Team Providers Care Hot Top Liner Helper Name Role Phone Porfirio Spence MD PCP Agustina Vines DO Unavailable Reason for Visit * Reason Comments Care Coordination patient wanted plan of care Encounter Details Care Team Description Date [place] [address] [address] [phone] Care Coordination (patient wanted plan of care) 01/27/[address] [facility] - OP Exam [address] [address] Social History Date Tobacco Use [...] Liliana Monroy RN - 01/27/2018 1:16 PM INSTRUMENT AND ELECTRICAL TECHNICIAN F/u with patient about upcoming appt. Patient [...] schedulers. No further questions at this time. RUMENT AND ELECTRICAL TECHNICIAN in this encounter Plan of Treatment Not on fileas of this encounter Visit Diagnoses Not on filein this encounter
--- OUTSIDE RECORDS SUMMARY | 2018-03-22 17:29 | XMS REPORT | Encounter Summary ---
Author Author [facility] Organization [facility] Address Unknown Phone Unavailable Care Team Providers Care Director Of Enterprise Applications Name Role Phone Porfirio Spence MD PCP Reason for Referral * Radiology Services (Routine) Referred By Contact Referred To Contact Status Reason Specialty Diagnoses / [place] [address] [place] [address] Mri 1st fl [place] [address] [place] [address] Closed Radiology Diagnoses 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, unspecified laterality (HCC) P rocedures MRI HEAD WO/W CONTRAST * Radiology Services (Routine) Referred By Contact Referred To Contact Status Reason Specialty Diagnoses / [place] [address] [place] [address] Mri 1st fl [place] [address] [place] [address] Closed Radiology Diagnoses 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, unspecified laterality (HCC) P rocedures MRI HEAD WO/W CONTRAST Reason for Visit * Radiology Services (Routine) Referred By Contact Referred To Contact Status Reason Specialty Diagnoses / [place] [address] [place] [address] Mri 1st fl [place] [address] [place] [address] Closed Radiology Diagnoses 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, unspecified laterality (HCC) P rocedures MRI HEAD WO/W CONTRAST Encounter Details Care Team Description Date [place] [address] [place] [address] [phone] 12/22/2017 [facility] Encounter [facility] 1st fl [place] [address] [facility] [place] [address] Social History Date Tobacco Use Types Packs/Day [...] Routine 12/22/2017 Inflammatory carcinoma of 4:10 PM HOTBED TRANSFER OPERATOR right breast (HCC) Malignant neoplasm of breast metastatic to brain, unspecified laterality (HCC) POC GLUCOSE 12/22/2017 1:19 PM HOTBED TRANSFER OPERATOR in this encounter Results * MRI HEAD WO/W CONTRAST (12/22/2017 4:10 PM HOTBED TRANSFER OPERATOR) Addenda Addendum by Giovanni Valera MD on 12/27/2017 10:30 AM Finalized by Giovanni Valera M.D. on 12/22/2017 5:39 PM. Dictated by Yosef Hwang DO on 12/22/2017 4:38 PM.Addendum: Reason for addendum: Comparison images were clouded for review after the initial interpretation and reliability specialist on 12/22/2017. Comparison: External brain MRI dated [...] Interface, Radiant Results - 12/27/2017 10:30 AM HOTBED TRANSFER OPERATOR EXAM: MRI BRAIN HISTORY: Monitor breast cancer [...] RESULTS * POC GLUCOSE (12/22/2017 1:19 PM HOTBED TRANSFER OPERATOR) Glucose, POC 85 70 - 100 MG/DL [facility] Performing Organization Address City/State/Zipcode Phone Number MAIN LAB [address] [place] [address] in this encounter Visit Diagnoses Diagnosis 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, unspecified laterality (HCC) in this encounter Administered Medications Action Date Dose Rate Site Medication Order MAR Action 12/22/2017 4:03 PM HOTBED TRANSFER OPERATOR 14 mL gadobenate dimeglumine (MULTIHANCE) Given injection 14 mL 14 mL, Intravenous, ONCE, 1 dose, Susanna 12/22/17 at 1400, Hand injection, flushed with 10 mL saline s/p injection NOTE: This is a HIGH ALERT Medication., in this encounter
--- OUTSIDE RECORDS SUMMARY | 2018-03-22 17:29 | XMS REPORT | Encounter Summary ---
Author Author [facility] Organization [facility] Address Unknown Phone Unavailable Care Team Providers Care Word Processor Technician Name Role Phone Porfirio Spence MD PCP Reason for Visit * Reason Comments Medication Request Encounter Details Care Team Description Date [place] [address] [id number] Medication Request 12/20/2017 Telephone [facility] - OP Exam [address] [address] Social History Date Tobacco Use [...] Gabe Alexis RN - 12/20/2017 10:13 AM JOURNEY LINEMAN Pt. request Valium 2 mg called to retail pharmacy for her to take before her Pet scan and MRI today at . Discuss pt request with Dr McKittrick and approved med for pt. [facility] [id number]. Pt. notified. NEY LINEMAN in this encounter Plan of Treatment Not on fileas of this encounter Visit Diagnoses Not on filein this encounter
--- OUTSIDE RECORDS SUMMARY | 2018-03-22 17:29 | XMS REPORT | Encounter Summary ---
Author Author [facility] Organization [facility] Address Unknown Phone Unavailable Care Team Providers Care Valve Mechanic Name Role Phone Porfirio Spence MD PCP Reason for Referral * Radiology Services (Routine) Referred By Contact Referred To Contact Status Reason Specialty Diagnoses / [place] [address] [place] [address] [facility] [address] [place] [address] [address] [place] [address] Closed Radiology Diagnoses 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, unspecified laterality (HCC) P rocedures NM PET SCAN TORSO (SKULL-THIGHS) * Radiology Services (Routine) Referred By Contact Referred To Contact Status Reason Specialty Diagnoses / [place] [address] [place] [address] [facility] [address] [place] [address] [address] [place] [address] Closed Radiology Diagnoses 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, unspecified laterality (HCC) P rocedures NM PET SCAN TORSO (SKULL-THIGHS) Reason for Visit * Radiology Services (Routine) Referred By Contact Referred To Contact Status Reason Specialty Diagnoses / [place] [address] [place] [address] [facility] [address] [place] [address] [address] [place] [address] Closed Radiology Diagnoses 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, unspecified laterality (HCC) P rocedures NM PET SCAN TORSO (SKULL-THIGHS) Encounter Details Care Team Description [place] [address] [place] [address] [phone] 12/22/2017 [facility] Encounter [place] [facility] 1st fl [address] [place] [address] Social History Date Tobacco Use [...] 12/22/2017 Inflammatory carcinoma of (SKULL-THIGHS) 2:51 PM REPLENISHMENT SPECIALIST right breast (HCC) Malignant neoplasm of breast metastatic to brain, unspecified laterality (HCC) in this encounter Results * NM PET SCAN TORSO (SKULL-THIGHS) (12/22/2017 2:51 PM REPLENISHMENT SPECIALIST) Impressions Performed At 1. Intracranial metastatic disease [...] on 12/22/2017 3:04 PM. Narrative Performed At [facility] PET SCAN [place] (SKULL-THIGHS) [facility] RESULTS [...] current mean hepatic SUV (reported for quality control checker purposes) is 1.8. Blood glucose level (at [...] Interface, Radiant Results - 12/22/2017 4:06 PM REPLENISHMENT SPECIALIST NM PET SCAN TORSO (SKULL-THIGHS) Radiopharmaceutical: 11.8 [...] current mean hepatic SUV (reported for quality control checker purposes) is 1.8. Blood glucose level (at [...] Medication Order MAR Action 12/22/2017 1:31 PM REPLENISHMENT SPECIALIST 11.8 millicuries RP DX F-18 FDG injection 10 millicurie Given 10 millicurie, Intravenous, ONCE, 1 dose, Susanna 12/22/17 at 1345 in this encounter
--- OUTSIDE RECORDS SUMMARY | 2018-03-22 17:40 | XMS REPORT | Continuity of Care Document ---
Author Author [facility] Organization [facility] Address Unknown Phone Unavailable Allergies Active Description Code Type Severity Reaction Onset Reported/Identified Relationship to Patient Clinical Status Yes No Known Drug Allergies [id number] Drug Allergy Unknown N/A 09/27/2014 Medications There is no data. Problems Date Dx Coded Attending Type Code Diagnosis Diagnosed By 09/27/2014 KARLIE ZHU MD Ot 053.9 HERPES ZOSTER NOS 09/27/2014 KARLIE ZHU MD Ot V68.1 ISSUE REPEAT PRESCRIPT 10/11/2014 REGINALDO ANNA MD Ot 692.6 DERMATITIS DUE TO PLANT 10/11/2014 REGINALDO ANNA MD Ot 782.1 NONSPECIF SKIN ERUPT NEC 11/08/2014 DARÍO BURROWS OYSTER SHUCKER Ot 784.2 11/08/2014 REGINALDO ANNA MD Ot F17.210 NICOTINE DEPENDENCE, CIGARETTES, UNCOMPL 11/08/2014 REGINALDO ANNA MD Ot J44.1 CHRONIC OBSTRUCTIVE PULMONARY DISEASE W 11/08/2014 REGINALDO ANNA MD Ot R06.02 SHORTNESS OF BREATH 11/08/2014 DARÍO BURROWS OYSTER SHUCKER Ot 784.2 11/19/2014 DARÍO BURROWS OYSTER SHUCKER Ot 784.2 11/21/2014 KAYLA MELENDEZ APRN Ot [...] Ot R50.9 FEVER, UNSPECIFIED 12/25/2014 KAYLA MELENDEZ OYSTER SHUCKER Ot F17.210 NICOTINE DEPENDENCE, CIGARETTES, UNCOMPL 12/25/2014 KAYLA MELENDEZ OYSTER SHUCKER Ot N64.9 DISORDER OF BREAST, UNSPECIFIED 01/09/2015 DARÍO BURROWS OYSTER SHUCKER Ot N64.4 01/09/2015 DARÍO BURROWS OYSTER SHUCKER Ot N64.4 01/10/2015 STORMY DARÍO You OYSTER SHUCKER Ot N64.4 01/10/2015 ROB BURROWSYARELY You OYSTER SHUCKER Ot N63 01/10/2015 STORMY DARÍO You OYSTER SHUCKER Ot R92.8 01/14/2015 STORMY DARÍO You OYSTER SHUCKER Ot N64.4 01/14/2015 SOTRMY DARÍO You OYSTER SHUCKER Ot N63 01/14/2015 STORMY DARÍO You OYSTER SHUCKER Ot R92.8 01/17/2015 STORMY DARÍO You OYSTER SHUCKER Ot N64.4 01/17/2015 STORMY DARÍO You OYSTER SHUCKER Ot N63 01/17/2015 STORMY DARÍO You OYSTER SHUCKER Ot R92.8 01/17/2015 MARIA LUZ MURRAY, CAM [...] You (DDU) Ot Z02.71 01/22/2015 DARÍO BURROWS OYSTER SHUCKER Ot N64.4 01/22/2015 DARÍO BURROWS OYSTER SHUCKER Ot N63 01/22/2015 DARÍO BURROWS OYSTER SHUCKER Ot R92.8 01/22/2015 GAMALIEL MURRAY, CEE K [...] MD (DDU) Ot Z02.71 01/24/2015 DARÍO BURROWS OYSTER SHUCKER Ot N64.4 01/24/2015 DARÍO BURROWS OYSTER SHUCKER Ot N63 01/24/2015 DARÍO BURROWS OYSTER SHUCKER Ot R92.8 01/24/2015 GAMALIEL MURRAY, CEE K [...] MURRAY, CEE K Ot Z79.899 01/24/2015 GAMALIEL MRURAY, CEE K Ot C50.411 01/24/2015 GAMALIEL MURRAY, CEE Pryor Ot Z51.81 01/24/2015 GAMALIEL MURRAY, CEE K Ot Z79.899 01/24/2015 GAMALIEL MURRAY, CEE K Ot R92.8 01/24/2015 KITTY SANDRA S BRANDS EDITOR Ot C50.511 01/24/2015 KITTY SANDRA S BRANDS EDITOR Ot E66.9 01/24/2015 KITTY SANDRA S BRANDS EDITOR Ot E78.5 01/24/2015 KARIN TANGAH S BRANDS EDITOR Ot F17.210 01/24/2015 KITTY SANDRA S BRANDS EDITOR Ot F31.9 01/24/2015 KARIN TANGSINGH S BRANDS EDITOR Ot I10 01/24/2015 KARIN TANGSINGH S BRANDS EDITOR Ot J44.9 01/24/2015 KITTY SANDRA S BRANDS EDITOR Ot Z17.1 01/24/2015 KITTY SANDRA S BRANDS EDITOR Ot Z68.35 01/24/2015 KITTY SANDRA S BRANDS EDITOR Ot Z79.899 01/24/2015 GAMALIEL MURRAY, CEE Pryor Ot R92.8 01/24/2015 KITTY SANDRA S BRANDS EDITOR Ot C50.511 01/24/2015 KARIN TANGSINGH S BRANDS EDITOR Ot E66.9 01/24/2015 KARIN TANGSINGH S BRANDS EDITOR Ot E78.5 01/24/2015 KITTY SANDRA S BRANDS EDITOR Ot F17.210 01/24/2015 KITTY SANDRA S BRANDS EDITOR Ot F31.9 01/24/2015 KITTY SANDRA S BRANDS EDITOR Ot I10 01/24/2015 KARIN TANGSINGH S BRANDS EDITOR Ot J44.9 01/24/2015 KARIN TANGSINGH S BRANDS EDITOR Ot Z17.1 01/24/2015 KARIN TANGSINGH S BRANDS EDITOR Ot Z68.35 01/24/2015 KARIN TANGSINGH S BRANDS EDITOR Ot Z79.899 01/24/2015 GAMALIEL MURRAY, CEE K [...] CEE Pryor Ot Z79.899 01/24/2015 DARÍO BURROWS OYSTER SHUCKER Ot N63 01/24/2015 DARÍO BURROWS OYSTER SHUCKER Ot R92.8 01/24/2015 DARÍO BURROWS OYSTER SHUCKER Ot N64.4 01/24/2015 SHERRY ROGEL MD (DDU) Ot Z02.71 01/24/2015 DARÍO BURROWS OYSTER SHUCKER Ot N64.4 01/24/2015 DARÍO BURROWS OYSTER SHUCKER Ot N63 01/24/2015 DARÍO BURROWS OYSTER SHUCKER Ot R92.8 01/24/2015 GAMALIEL MURRAY, CEE Konstantin [...] SANDRA TANG Ot C50.511 01/24/2015 SANDRA TANG BRANDS EDITOR Ot E66.9 01/24/2015 SANDRA TANG BRANDS EDITOR Ot E78.5 01/24/2015 SANDRA TANG BRANDS EDITOR Ot F17.210 01/24/2015 SANDRA TANG BRANDS EDITOR Ot F31.9 01/24/2015 SANDRA TANG BRANDS EDITOR Ot I10 01/24/2015 SANDRA TANG BRANDS EDITOR Ot J44.9 01/24/2015 SANDRA TANG S BRANDS EDITOR Ot Z17.1 01/24/2015 SADNRA TANG S BRANDS EDITOR Ot Z68.35 01/24/2015 SANDRA TANG BRANDS EDITOR Ot Z79.899 02/13/2015 GAMALIEL MURRAY, CEE Pryor Ot C50.511 02/13/2015 GAMALIEL MURRAY, CEE Pryor Ot Z51.81 02/13/2015 GAMALIEL MURRAY, CEE Pryor Ot Z79.899 02/13/2015 GAMALIEL MURRAY, CEE Pryor Ot C50.511 02/13/2015 GAMALIEL MURRAY, CEE Pryor Ot Z51.81 02/13/2015 GAMALIEL MURRAY, CEE Pryor Ot Z79.899 02/17/2015 PEBBLES MURRAY, SHERRY You (DDU) Ot Z02.71 02/17/2015 DARÍO BURROWS OYSTER SHUCKER Ot N64.4 02/17/2015 DARÍO BURROWS OYSTER SHUCKER Ot N63 02/17/2015 DARÍO BURROWS OYSTER SHUCKER Ot R92.8 02/17/2015 GAMALIEL MURRAY, CEE Pryor [...] MURRAY, CEE Pryor Ot R92.8 02/17/2015 TANGSANDRA BRANDS EDITOR Ot C50.511 02/17/2015 TANG, SANDRA S BRANDS EDITOR Ot E66.9 02/17/2015 TANG, HILAH S BRANDS EDITOR Ot E78.5 02/17/2015 TANG, HILAH S BRANDS EDITOR Ot F17.210 02/17/2015 TANG, HILAH S BRANDS EDITOR Ot F31.9 02/17/2015 TANG, HILAH S BRANDS EDITOR Ot I10 02/17/2015 TANG, HILAH S BRANDS EDITOR Ot J44.9 02/17/2015 TANG, HILAH S BRANDS EDITOR Ot Z17.1 02/17/2015 KITTY SANDRA S BRANDS EDITOR Ot Z68.35 02/17/2015 KITTYSANDRA S BRANDS EDITOR Ot Z79.899 02/17/2015 GAMALIEL MURRAY, CEE Pryor [...] You (DDU) Ot Z02.71 03/17/2015 DARÍO BURROWS OYSTER SHUCKER Ot N64.4 03/17/2015 DARÍO BURROWS OYSTER SHUCKER Ot N63 03/17/2015 DARÍO BURROWS OYSTER SHUCKER Ot R92.8 03/17/2015 GAMALIEL MURRAY, CEE Pryor [...] CEE Pryor Ot R92.8 03/17/2015 SANDRA TANG BRANDS EDITOR Ot C50.511 03/17/2015 SANDRA TANG S BRANDS EDITOR Ot E66.9 03/17/2015 SANDRA TANG S BRANDS EDITOR Ot E78.5 03/17/2015 KARIN TANGSINGH S BRANDS EDITOR Ot F17.210 03/17/2015 SANDRA TANG S BRANDS EDITOR Ot F31.9 03/17/2015 SANDRA TANG S BRANDS EDITOR Ot I10 03/17/2015 SANDRA TANG S BRANDS EDITOR Ot J44.9 03/17/2015 SANDRA TANG S BRANDS EDITOR Ot Z17.1 03/17/2015 SANDRA TANG S BRANDS EDITOR Ot Z68.35 03/17/2015 SANDRA TANG S BRANDS EDITOR Ot Z79.899 03/17/2015 GAMALIEL MURRAY, CEE Pryor [...] You (DDU) Ot Z02.71 03/20/2015 DARÍO BURROWS OYSTER SHUCKER Ot N64.4 03/20/2015 DARÍO BURROWS OYSTER SHUCKER Ot N63 03/20/2015 DARÍO BURROWS OYSTER SHUCKER Ot R92.8 03/20/2015 GAMALIEL MURRAY, CEE K [...] CEE K Ot R92.8 03/20/2015 SANDRA TANG BRANDS EDITOR Ot C50.511 03/20/2015 SANDRA TANG BRANDS EDITOR Ot E66.9 03/20/2015 SANDRA TANG BRANDS EDITOR Ot E78.5 03/20/2015 SANDRA TANG BRANDS EDITOR Ot F17.210 03/20/2015 SANDRA TANG BRANDS EDITOR Ot F31.9 03/20/2015 SANDRA TANG BRANDS EDITOR Ot I10 03/20/2015 SANDRA TANG BRANDS EDITOR Ot J44.9 03/20/2015 SANDRA TANG BRANDS EDITOR Ot Z17.1 03/20/2015 TANG, HILAH S BRANDS EDITOR Ot Z68.35 03/20/2015 KITTY KARINAH S BRANDS EDITOR Ot Z79.899 03/20/2015 GAMALIEL MURRAY, CEE K Ot C50.511 03/20/2015 GAMALIEL MURRAY, CEE K Ot Z51.81 03/20/2015 GAMALIEL MURRAY, CEE Pryor Ot Z79.899 03/20/2015 GAMALIEL MURRAY, CEE K Ot C50.511 03/20/2015 MARIA LUZ MURRAY, CAM M Ot C50.911 03/20/2015 MARIA LUZ MURRAY, CAM M Ot Z01.818 03/20/2015 GAMALIEL MURRAY, CEE K Ot C50.511 03/20/2015 KITTY HILAH S BRANDS EDITOR Ot C50.511 03/20/2015 KARIN TANGAH S BRANDS EDITOR Ot E66.9 03/20/2015 KITTY HILAH S BRANDS EDITOR Ot E78.5 03/20/2015 KARIN TANGAH S BRANDS EDITOR Ot F17.210 03/20/2015 KARIN TANGAH S BRANDS EDITOR Ot F31.9 03/20/2015 SANDRA TANG S BRANDS EDITOR Ot I10 03/20/2015 SANDRA TANG S BRANDS EDITOR Ot J44.9 03/20/2015 SANDRA TANG S BRANDS EDITOR Ot Z17.1 03/20/2015 KARIN TANGAH S BRANDS EDITOR Ot Z68.35 03/20/2015 KITTY KARINAH S BRANDS EDITOR Ot Z79.899 03/20/2015 GAMALIEL MURRAY, CEE K Ot C50.511 03/20/2015 GAMALIEL MURRAY, CEE Pryor Ot Z51.81 03/20/2015 GAMALIEL MURRAY, CEE K Ot Z79.899 03/20/2015 KITTY SANDRA S BRANDS EDITOR Ot C50.511 03/20/2015 KARIN TANGAH S BRANDS EDITOR Ot E66.9 03/20/2015 SANDRA TANG S BRANDS EDITOR Ot E78.5 03/20/2015 KITTY HILAH S BRANDS EDITOR Ot F17.210 03/20/2015 KITTY HILAH S BRANDS EDITOR Ot F31.9 03/20/2015 KARIN TANGAH S BRANDS EDITOR Ot I10 03/20/2015 SANDRA TANG S BRANDS EDITOR Ot J44.9 03/20/2015 SANDRA TANG S BRANDS EDITOR Ot Z17.1 03/20/2015 KITTYSANDRA BRANDS EDITOR Ot Z68.35 03/20/2015 KITTY SANDRA Lazar BRANDS EDITOR Ot Z79.899 03/20/2015 GAMALIEL MURRAY, CEE Konstantin [...] CEE Konstantin Ot Z79.899 03/20/2015 DARÍO BURROWS OYSTER SHUCKER Ot N63 03/20/2015 DARÍO BURROWS OYSTER SHUCKER Ot R92.8 03/20/2015 GAMALIEL MURRAY, CEE Pryor [...] Pryor Ot Z79.899 03/20/2015 BURROWS, DARÍO You OYSTER SHUCKER Ot N63 03/20/2015 BURROWS, DARÍO You OYSTER SHUCKER Ot R92.8 03/20/2015 BURROWS, DARÍO You OYSTER SHUCKER Ot N64.4 03/20/2015 BURROWS, DARÍO A OYSTER SHUCKER Ot 784.2 03/25/2015 GAMALIEL MURRAY, CEE Konstantin Ot C50.511 03/25/2015 GAMALIEL MURRAY, CEE Konstantin Ot C50.511 03/25/2015 GAMALIEL MURRAY, CEE Pryor Ot Z51.81 03/25/2015 GAMALIEL MURRAY, CEE Konstantin Ot Z79.899 03/25/2015 GAMALIEL MURRAY, CEE Konstantin Ot C50.511 03/25/2015 GAMALIEL MURRAY, CEE Konstantin Ot C50.411 03/25/2015 GAMALIEL MURRAY, CEE Pryor Ot Z51.81 03/25/2015 GAMALIEL MURRAY, CEE Pryor Ot Z79.899 03/25/2015 BURROWS, DARÍO You OYSTER SHUCKER Ot N63 03/25/2015 BURROWS, DARÍO A OYSTER SHUCKER Ot R92.8 03/25/2015 BURROWS, DARÍO A OYSTER SHUCKER Ot 784.2 03/31/2015 BURROWS, DARÍO A OYSTER SHUCKER Ot 784.2 03/31/2015 PEBBLES MURRAY, SHERRY You (DDU) Ot Z02.71 03/31/2015 BURROWS, DARÍO A OYSTER SHUCKER Ot N64.4 03/31/2015 BURROWS, DARÍO A OYSTER SHUCKER Ot N63 03/31/2015 BURROWS, DARÍO A OYSTER SHUCKER Ot R92.8 03/31/2015 GAMALIEL MURRAY, CEE Pryor [...] Pryor Ot R92.8 03/31/2015 KITTY SANDRA S BRANDS EDITOR Ot C50.511 03/31/2015 KITTY HILAH S BRANDS EDITOR Ot E66.9 03/31/2015 KITTY HILAH S BRANDS EDITOR Ot E78.5 03/31/2015 KITTY KARINAH S BRANDS EDITOR Ot F17.210 03/31/2015 KITTY KARINAH S BRANDS EDITOR Ot F31.9 03/31/2015 KITTY SANDRA S BRANDS EDITOR Ot I10 03/31/2015 KITTY SANDRA S BRANDS EDITOR Ot J44.9 03/31/2015 KITTY SANDRA S BRANDS EDITOR Ot Z17.1 03/31/2015 KITTY SANDRA S BRANDS EDITOR Ot Z68.35 03/31/2015 KITTY KARINAH S BRANDS EDITOR Ot Z79.899 03/31/2015 GAMALIEL MURRAY, CEE Pryor Ot C50.511 03/31/2015 GAMALIEL MURRAY, CEE Pryor Ot Z51.81 03/31/2015 GAMALIEL MURRAY, CEE Pryor Ot Z79.899 03/31/2015 GAMALIEL MURRAY, CEE Pryor Ot C50.511 03/31/2015 MARIA LUZ MURRAY, CAM Jara Ot C50.911 03/31/2015 MARIA LUZ MURRAY, CAM M Ot Z01.818 04/04/2015 DARÍO BURROWS OYSTER SHUCKER Ot 784.2 04/04/2015 DARÍO BURROWS OYSTER SHUCKER Ot N64.4 04/04/2015 DARÍO BURROWS OYSTER SHUCKER Ot N63 04/04/2015 DARÍO BURROWS OYSTER SHUCKER Ot R92.8 04/04/2015 GAMALIEL MURRAY, CEE Pryor Ot C50.511 04/04/2015 GAMALIEL MURRAY, CEE K Ot R92.8 04/04/2015 TANGSANDRA Lazar BRANDS EDITOR Ot C50.511 04/04/2015 SANDRA TANG BRANDS EDITOR Ot E66.9 04/04/2015 SANDRA TANG S BRANDS EDITOR Ot E78.5 04/04/2015 SANDRA TANG S BRANDS EDITOR Ot F17.210 04/04/2015 SANDRA TANG S BRANDS EDITOR Ot F31.9 04/04/2015 SANDRA TANG S BRANDS EDITOR Ot I10 04/04/2015 SANDRA TANG S BRANDS EDITOR Ot J44.9 04/04/2015 SANDRA TANG S BRANDS EDITOR Ot Z17.1 04/04/2015 TANGSANDRA Lazar S BRANDS EDITOR Ot Z68.35 04/04/2015 TANGSANDRA Lazar BRANDS EDITOR Ot Z79.899 04/04/2015 GAMALIEL MURRAY, CEE Konstantin Ot C50.511 04/04/2015 GAMALIEL MURRAY, CEE Konstantin Ot Z51.81 04/04/2015 GAMALIEL MURRAY, CEE K Ot Z79.899 04/04/2015 GAMALIEL MURRAY, CEE Pryor Ot C50.511 04/07/2015 DARÍO BURROWS OYSTER SHUCKER Ot 784.2 04/07/2015 PEBBLES MURRAY, SHERRY You (DDU) Ot Z02.71 04/07/2015 DARÍO BURROWS OYSTER SHUCKER Ot N64.4 04/07/2015 DARÍO BURROWS OYSTER SHUCKER Ot N63 04/07/2015 DARÍO BURROWS OYSTER SHUCKER Ot R92.8 04/07/2015 GAMALIEL MURRAY, CEE Konstantin Ot C50.411 04/07/2015 GAMALIEL MURRAY, CEE Konstantin Ot E66.9 04/07/2015 GAMALIEL MURRAY, CEE Konstantin Ot E78.5 04/07/2015 GAMALIEL MURRAY, CEE Konstantin Ot F17.210 04/07/2015 GAMALIEL MURRAY, CEE Konstantin Ot F31.9 04/07/2015 GAMALEIL MURRAY, CEE K Ot I10 04/07/2015 GAMALIEL [...] Pryor Ot R92.8 04/07/2015 KITTY SANDRA S BRANDS EDITOR Ot C50.511 04/07/2015 KARIN TANGSINGH S BRANDS EDITOR Ot E66.9 04/07/2015 KITTY SANDRA S BRANDS EDITOR Ot E78.5 04/07/2015 KITTY SANDRA S BRANDS EDITOR Ot F17.210 04/07/2015 KITTY SANDRA S BRANDS EDITOR Ot F31.9 04/07/2015 KITTY SANDRA S BRANDS EDITOR Ot I10 04/07/2015 KITTY SANDRA S BRANDS EDITOR Ot J44.9 04/07/2015 KITTY SANDRA S BRANDS EDITOR Ot Z17.1 04/07/2015 KITTY SANDRA S BRANDS EDITOR Ot Z68.35 04/07/2015 KITTY SANDRA S BRANDS EDITOR Ot Z79.899 04/07/2015 GAMALIEL MURRAY, CEE Pryor [...] GAMALIEL MURRAY, CEE Pryor Ot Z79.899 OTHER NURSING HOME (CURRENT) DRUG THERAPY 04/21/2015 GAMALIEL MURRAY, CEE Pryor Ot C50.411 04/21/2015 GAMALIEL MURRAY, CEE Pryor Ot E66.9 04/21/2015 GAMALIEL MURRAY, CEE Pryor Ot E78.5 04/21/2015 GAMALIEL MURRAY, CEE Pyror Ot F17.210 04/21/2015 GAMALIEL MURRAY, CEE Pryor [...] SANDRA TANG Ot C50.511 04/29/2015 SANDRA TANG BRANDS EDITOR Ot Z79.899 04/30/2015 GAMALIEL MURRAY, CEE Pryor [...] CEE Pryor Ot Z51.81 06/17/2015 DARÍO BURROWS OYSTER SHUCKER Ot 784.2 SWELLING IN HEAD NECK 06/17/2015 SHERRY ROGEL MD (DDU) Ot Z02.71 ENCOUNTER FOR DISABILITY DETERMINATION 06/17/2015 DARÍO BURROWS OYSTER SHUCKER Ot N64.4 MASTODYNIA 06/17/2015 DARÍO BURROWS OYSTER SHUCKER Ot N63 UNSPECIFIED LUMP IN BREAST 06/17/2015 DARÍO BURROWS APRN Ot R92.8 OTH ABN AND INCONCLUSIVE FINDINGS ON DX 06/17/2015 GAMALIEL MURRAY, CEE Pryor Ot C50.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 06/17/2015 GAMALIEL MURRAY, CEE Pryor Ot Z51.81 ENCOUNTER FOR THERAPEUTIC DRUG LEVEL MON 06/17/2015 CEE ALSTON MD Ot Z79.899 OTHER NURSING HOME (CURRENT) DRUG THERAPY 06/17/2015 CEE ALSTON MD Ot 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 06/17/2015 CEE ALSTON MD Ot R92.8 OTH ABN AND INCONCLUSIVE FINDINGS ON DX 06/17/2015 SANDRA TANG Cady BRANDS EDITOR Ot 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 06/17/2015 SANDRA TANG S BRANDS EDITOR Ot E66.9 OBESITY, UNSPECIFIED 06/17/2015 SANDRA TANG S BRANDS EDITOR Ot E78.5 HYPERLIPIDEMIA, UNSPECIFIED 06/17/2015 KARIN TANGSINGH S BRANDS EDITOR Ot F17.210 NICOTINE DEPENDENCE, CIGARETTES, UNCOMPL 06/17/2015 SANDRA TANG S BRANDS EDITOR Ot F31.9 BIPOLAR DISORDER, UNSPECIFIED 06/17/2015 KARIN TANGSINGH S BRANDS EDITOR Ot I10 ESSENTIAL (PRIMARY) HYPERTENSION 06/17/2015 SANDRA TANG S BRANDS EDITOR Ot J44.9 CHRONIC OBSTRUCTIVE PULMONARY DISEASE, U 06/17/2015 SANDRA TANG S BRANDS EDITOR Ot Z17.1 ESTROGEN RECEPTOR NEGATIVE STATUS [ER-] 06/17/2015 SANDRA TANG S BRANDS EDITOR Ot Z68.35 BODY MASS INDEX (BMI) 35.0-35.9, ADULT 06/17/2015 SANDRA TANG S BRANDS EDITOR Ot Z79.899 OTHER PERSONALIZED LIVING MANAGER NURSE (CURRENT) DRUG THERAPY 06/17/2015 CEE ALSTON MD Ot 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 06/17/2015 CEE ALSTON MD Ot Z51.81 ENCOUNTER FOR THERAPEUTIC DRUG LEVEL MON 06/17/2015 CEE ALSTON MD Ot Z79.899 OTHER NURSING HOME (CURRENT) DRUG THERAPY 06/17/2015 CEE ALSTON MD [...] 06/17/2015 CEE ALSTON MD Ot Z79.899 OTHER PERSONALIZED LIVING MANAGER NURSE (CURRENT) DRUG THERAPY 06/17/2015 SANDRA TANG Ot 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 06/17/2015 SANDRA TANG Ot Z79.899 OTHER PERSONALIZED LIVING MANAGER NURSE (CURRENT) DRUG THERAPY 06/17/2015 CEE ALSTON MD [...] 06/17/2015 CEE ALSTON MD Ot Z79.899 OTHER NURSING HOME (CURRENT) DRUG THERAPY 06/17/2015 CEE ALSTON MD [...] 07/30/2015 CEE ALSTON MD, Ot Z79.899 OTHER PERSONALIZED LIVING MANAGER NURSE (CURRENT) DRUG THERAPY 07/31/2015 CEE ALSTON MD, [...] 07/31/2015 CEE ALSTON MD, Ot Z79.899 OTHER PERSONALIZED LIVING MANAGER NURSE (CURRENT) DRUG THERAPY 08/05/2015 CEE ALSTON MD, [...] 08/05/2015 CEE ALSTON MD Ot Z79.899 OTHER NURSING HOME (CURRENT) DRUG THERAPY 01/01/2016 CEE ALSTON MD [...] 01/01/2016 CEE ALSTON MD Ot Z79.899 OTHER PERSONALIZED LIVING MANAGER NURSE (CURRENT) DRUG THERAPY 02/16/2016 DARÍO BURROWS OYSTER SHUCKER Ot 784.2 SWELLING IN HEAD NECK 02/16/2016 SHERRY ROGEL MD (DDU) Ot Z02.71 ENCOUNTER FOR DISABILITY DETERMINATION 02/16/2016 DARÍO BURROWS OYSTER SHUCKER Ot N64.4 MASTODYNIA 02/16/2016 DARÍO BURROWS OYSTER SHUCKER Ot N63 UNSPECIFIED LUMP IN BREAST 02/16/2016 DARÍO BURROWS APRN Ot R92.8 OTH ABN AND INCONCLUSIVE FINDINGS ON DX 02/16/2016 CEE ALSTON MD Ot C50.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 02/16/2016 CEE ALSTON MD Ot Z51.81 ENCOUNTER FOR THERAPEUTIC DRUG LEVEL MON 02/16/2016 CEE ALSTON MD Ot Z79.899 OTHER PERSONALIZED LIVING MANAGER NURSE (CURRENT) DRUG THERAPY 02/16/2016 CEE ALSTON MD Ot 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 02/16/2016 CEE ALSTON MD, Ot R92.8 OTH ABN AND INCONCLUSIVE FINDINGS ON DX 02/16/2016 SANDRA TANG BRANDS EDITOR Ot 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 02/16/2016 SANDRA TANG BRANDS EDITOR Ot E66.9 OBESITY, UNSPECIFIED 02/16/2016 SANDRA TANG S BRANDS EDITOR Ot E78.5 HYPERLIPIDEMIA, UNSPECIFIED 02/16/2016 SANDRA TANG BRANDS EDITOR Ot F17.210 NICOTINE DEPENDENCE, CIGARETTES, UNCOMPL 02/16/2016 SANDRA TANG BRANDS EDITOR Ot F31.9 BIPOLAR DISORDER, UNSPECIFIED 02/16/2016 SANDRA TANG S BRANDS EDITOR Ot I10 ESSENTIAL (PRIMARY) HYPERTENSION 02/16/2016 SANDRA TANG BRANDS EDITOR Ot J44.9 CHRONIC OBSTRUCTIVE PULMONARY DISEASE, U 02/16/2016 SANDRA TANG S BRANDS EDITOR Ot Z17.1 ESTROGEN RECEPTOR NEGATIVE STATUS [ER-] 02/16/2016 SANDRA TANG BRANDS EDITOR Ot Z68.35 BODY MASS INDEX (BMI) 35.0-35.9, ADULT 02/16/2016 SANDRA TANG BRANDS EDITOR Ot Z79.899 OTHER NURSING HOME (CURRENT) DRUG THERAPY 02/16/2016 CEE ALSTON MD Ot 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 02/16/2016 CEE ALSTON MD Ot Z51.81 ENCOUNTER FOR THERAPEUTIC DRUG LEVEL MON 02/16/2016 CEE ALSTON MD Ot Z79.899 OTHER PERSONALIZED LIVING MANAGER NURSE (CURRENT) DRUG THERAPY 02/16/2016 CEE ALSTON MD [...] GAMALIEL MURRAY CEE Konstantin Ot Z79.899 OTHER NURSING HOME (CURRENT) DRUG THERAPY 02/16/2016 SANDRA TANG Ot 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 02/16/2016 SANDRA TANG Ot Z79.899 OTHER PERSONALIZED LIVING MANAGER NURSE (CURRENT) DRUG THERAPY 02/16/2016 GAMALIEL MURRAY CEE [...] 02/16/2016 EULOGIO BRAGA MD, Ot Z79.899 OTHER PERSONALIZED LIVING MANAGER NURSE (CURRENT) DRUG THERAPY 02/16/2016 DARÍO BURROWS APRN Ot 784.2 SWELLING IN HEAD NECK 02/16/2016 SHERRY ROGEL MD ([facility]) Ot Z02.71 ENCOUNTER FOR DISABILITY [...] 02/16/2016 CEE ALSTON MD Ot Z79.899 OTHER PERSONALIZED LIVING MANAGER NURSE (CURRENT) DRUG THERAPY 02/16/2016 CEE ALSTON MD Ot 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9 CHRONIC OBSTRUCTIVE PULMONARY DISEASE, U 02/16/2016 SANDRA TANG S BRANDS EDITOR Ot Z17.1 ESTROGEN RECEPTOR NEGATIVE STATUS [ER-] 02/16/2016 SANDRA TANG S BRANDS EDITOR Ot Z68.35 BODY MASS INDEX (BMI) 35.0-35.9, ADULT 02/16/2016 SANDRA TANG S BRANDS EDITOR Ot Z79.899 OTHER PERSONALIZED LIVING MANAGER NURSE (CURRENT) DRUG THERAPY 02/16/2016 CEE ALSTON MD Ot 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 02/16/2016 CEE ALSTON MD Ot Z51.81 ENCOUNTER FOR THERAPEUTIC DRUG LEVEL MON 02/16/2016 CEE ALSTON MD Ot Z79.899 OTHER PERSONALIZED LIVING MANAGER NURSE (CURRENT) DRUG THERAPY 02/16/2016 CEE ALSTON MD Ot 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 02/16/2016 CAM BRAGA MD Ot C50.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 02/16/2016 CAM BRAGA MD Ot Z01.818 ENCOUNTER FOR OTHER PREPROCEDURAL EXAMIN 02/16/2016 ECE ALSTON MD Ot 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 02/16/2016 CEE ALSTON MD Ot Z51.81 ENCOUNTER FOR THERAPEUTIC DRUG LEVEL MON 02/16/2016 CEE ALSTON MD Ot Z79.899 OTHER PERSONALIZED LIVING MANAGER NURSE (CURRENT) DRUG THERAPY 02/16/2016 SANDRA TANG Ot 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 02/16/2016 SANDRA TANG Ot Z79.899 OTHER NURSING HOME (CURRENT) DRUG THERAPY 02/16/2016 CEE ALSTON MD [...] 02/16/2016 EULOGIO BRAGA MD Ot Z79.899 OTHER PERSONALIZED LIVING MANAGER NURSE (CURRENT) DRUG THERAPY 02/16/2016 EDIL QURESHI Ot F17.210 NICOTINE DEPENDENCE, CIGARETTES, UNCOMPL 02/16/2016 EDIL QURESHI Ot F41.9 ANXIETY DISORDER, UNSPECIFIED 02/16/2016 EDIL QURESHI Ot I10 ESSENTIAL (PRIMARY) HYPERTENSION 02/16/2016 EDIL QURESHI Ot Z95.9 PRESENCE OF CARDIAC AND VASCULAR IMPLANT 02/16/2016 DARÍO BURROWS APRN Ot 784.2 SWELLING IN HEAD NECK 02/16/2016 SHERRY ROGEL MD ([facility]) Ot Z02.71 ENCOUNTER FOR DISABILITY DETERMINATION 02/16/2016 DARÍO BURROWS OYSTER SHUCKER Ot N64.4 MASTODYNIA 02/16/2016 DARÍO BURROWS OYSTER SHUCKER Ot N63 UNSPECIFIED LUMP IN BREAST 02/16/2016 DARÍO BURROWS APRN Ot R92.8 OTH ABN AND INCONCLUSIVE FINDINGS ON DX 02/16/2016 CEE ALSTON MD Ot C50.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 02/16/2016 CEE ALSTON MD Ot Z51.81 ENCOUNTER FOR THERAPEUTIC DRUG LEVEL MON 02/16/2016 CEE ALSTON MD Ot Z79.899 OTHER PERSONALIZED LIVING MANAGER NURSE (CURRENT) DRUG THERAPY 02/16/2016 CEE ALSTON MD [...] ADULT 02/16/2016 SANDRA TANG Ot Z79.899 OTHER NURSING HOME (CURRENT) DRUG THERAPY 02/16/2016 CEE ALSTON MD Ot 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 02/16/2016 CEE ALSTON MD Ot Z51.81 ENCOUNTER FOR THERAPEUTIC DRUG LEVEL MON 02/16/2016 CEE ALSTON MD Ot Z79.899 OTHER PERSONALIZED LIVING MANAGER NURSE (CURRENT) DRUG THERAPY 02/16/2016 CEE ALSTON MD [...] 02/16/2016 CEE ALSTON MD Ot Z79.899 OTHER PERSONALIZED LIVING MANAGER NURSE (CURRENT) DRUG THERAPY 02/16/2016 SANDRA TANG Ot 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 02/16/2016 SANDRA TANG Ot Z79.899 OTHER NURSING HOME (CURRENT) DRUG THERAPY 02/16/2016 CEE ALSTON MD [...] 02/16/2016 EULOGIO BRAGA MD, Ot Z79.899 OTHER PERSONALIZED LIVING MANAGER NURSE (CURRENT) DRUG THERAPY 02/17/2016 EDIL QURESHI Ot [...] 03/01/2016 CEE ALSTON MD Ot Z79.899 OTHER PERSONALIZED LIVING MANAGER NURSE (CURRENT) DRUG THERAPY 03/01/2016 CEE ALSTON MD Ot 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 03/01/2016 CEE ALSTON MD Ot R92.8 OTH ABN AND INCONCLUSIVE FINDINGS ON DX 03/01/2016 SANDRA TANG Ot 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 03/01/2016 SANDRA TANG Ot E66.9 OBESITY, UNSPECIFIED 03/01/2016 SANDRA TANG BRANDS EDITOR Ot E78.5 HYPERLIPIDEMIA, UNSPECIFIED 03/01/2016 SANDRA TANG BRANDS EDITOR Ot F17.210 NICOTINE DEPENDENCE, CIGARETTES, UNCOMPL 03/01/2016 SANDRA TANG BRANDS EDITOR Ot F31.9 BIPOLAR DISORDER, UNSPECIFIED 03/01/2016 SANDRA TANG BRANDS EDITOR Ot I10 ESSENTIAL (PRIMARY) HYPERTENSION 03/01/2016 SANDRA TANGP Ot J44.9 CHRONIC OBSTRUCTIVE PULMONARY DISEASE, U 03/01/2016 SANDRA TANG BRANDS EDITOR Ot Z17.1 ESTROGEN RECEPTOR NEGATIVE STATUS [ER-] 03/01/2016 SANDRA TANG BRANDS EDITOR Ot Z68.35 BODY MASS INDEX (BMI) 35.0-35.9, ADULT 03/01/2016 SANDRA TANGP Ot Z79.899 OTHER NURSING HOME (CURRENT) DRUG THERAPY 03/01/2016 CEE ALSTON MD Ot 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 03/01/2016 CEE ALSTON MD Ot Z51.81 ENCOUNTER FOR THERAPEUTIC DRUG LEVEL MON 03/01/2016 CEE ALSTON MD Ot Z79.899 OTHER PERSONALIZED LIVING MANAGER NURSE (CURRENT) DRUG THERAPY 03/01/2016 CEE ALSTON MD [...] 03/01/2016 CEE ALSTON MD Ot Z79.899 OTHER PERSONALIZED LIVING MANAGER NURSE (CURRENT) DRUG THERAPY 03/01/2016 SANDRA TANG Ot 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 03/01/2016 SANDRA TANG Ot Z79.899 OTHER PERSONALIZED LIVING MANAGER NURSE (CURRENT) DRUG THERAPY 03/01/2016 CEE ALSTON MD Ot 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 03/01/2016 CEE ALSTON MD Ot Z51.81 ENCOUNTER FOR THERAPEUTIC DRUG LEVEL MON 03/01/2016 DARÍO BURROWS OYSTER SHUCKER Ot 784.2 SWELLING IN HEAD NECK 03/01/2016 SHERRY ROGEL MD ([facility]) Ot Z02.71 ENCOUNTER FOR DISABILITY DETERMINATION 03/01/2016 DARÍO BURROWS OYSTER SHUCKER Ot N64.4 MASTODYNIA 03/01/2016 DARÍO BURROWS OYSTER SHUCKER Ot N63 UNSPECIFIED LUMP IN BREAST 03/01/2016 DARÍO BURROWS OYSTER SHUCKER Ot R92.8 OTH ABN AND INCONCLUSIVE FINDINGS ON DX 03/01/2016 CEE ALSTON MD Ot C50.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 03/01/2016 CEE ALSTON MD Ot Z51.81 ENCOUNTER FOR THERAPEUTIC DRUG LEVEL MON 03/01/2016 CEE ALSTON MD Ot Z79.899 OTHER PERSONALIZED LIVING MANAGER NURSE (CURRENT) DRUG THERAPY 03/01/2016 CEE ALSTON MD [...] ADULT 03/01/2016 SANDRA TANG Ot Z79.899 OTHER NURSING HOME (CURRENT) DRUG THERAPY 03/01/2016 CEE ALSTON MD Ot 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 03/01/2016 CEE ALSTON MD Ot Z51.81 ENCOUNTER FOR THERAPEUTIC DRUG LEVEL MON 03/01/2016 CEE ALSTON MD Ot Z79.899 OTHER NURSING HOME (CURRENT) DRUG THERAPY 03/01/2016 CEE ALSTON MD Ot 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 03/01/2016 CAM BRAGA MD Ot C50.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 03/01/2016 CAM RBAGA MD Ot Z01.818 ENCOUNTER FOR OTHER PREPROCEDURAL EXAMIN 03/01/2016 CEE ALSTON MD Ot 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 03/01/2016 CEE ALSTON MD Ot Z51.81 ENCOUNTER FOR THERAPEUTIC DRUG LEVEL MON 03/01/2016 CEE ALSTON MD Ot Z79.899 OTHER PERSONALIZED LIVING MANAGER NURSE (CURRENT) DRUG THERAPY 03/01/2016 SANDRA TANG Ot 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 03/01/2016 SANDRA TANG Ot Z79.899 OTHER PERSONALIZED LIVING MANAGER NURSE (CURRENT) DRUG THERAPY 03/01/2016 CEE ALSTON MD [...] MON 03/02/2016 ADE FOWLER Ot Z79.899 OTHER PERSONALIZED LIVING MANAGER NURSE (CURRENT) DRUG THERAPY 03/02/2016 ADE FOWLER Ot Z51.81 ENCOUNTER FOR THERAPEUTIC DRUG LEVEL MON 03/02/2016 ADE FOWLER Ot Z79.899 OTHER NURSING HOME (CURRENT) DRUG THERAPY 03/04/2016 ADE FOWLER Ot Z51.81 ENCOUNTER FOR THERAPEUTIC DRUG LEVEL MON 03/04/2016 ADE FOWLER Ot Z79.899 OTHER NURSING HOME (CURRENT) DRUG THERAPY 03/04/2016 KAYLA MELENDEZ APRN Ot C50.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 03/04/2016 KAYLA MELENDEZ APRN Ot F17.210 NICOTINE DEPENDENCE, CIGARETTES, UNCOMPL 03/04/2016 KAYLA MELENDEZ OYSTER SHUCKER Ot I10 ESSENTIAL (PRIMARY) HYPERTENSION 03/04/2016 KAYLA MELENDEZ APRN Ot J44.9 CHRONIC OBSTRUCTIVE PULMONARY DISEASE, U 03/04/2016 KAYLA MELENDEZ APRN Ot N61.0 MASTITIS WITHOUT ABSCESS 03/04/2016 KAYLA MELENDEZ APRN Ot Z79.899 OTHER PERSONALIZED LIVING MANAGER NURSE (CURRENT) DRUG THERAPY 03/04/2016 KAYLA MELENDEZ APRN [...] 03/05/2016 KAYLA MELENDEZ APRN Ot Z79.899 OTHER PERSONALIZED LIVING MANAGER NURSE (CURRENT) DRUG THERAPY 03/05/2016 KAYLA MELENDEZ APRN Ot Z90.11 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 03/07/2016 ADE FOWLER Ot Z51.81 ENCOUNTER FOR THERAPEUTIC DRUG LEVEL MON 03/07/2016 ADE FOWLER Ot Z79.899 OTHER NURSING HOME (CURRENT) DRUG THERAPY 03/18/2016 ADE FOWLER Ot Z51.81 ENCOUNTER FOR THERAPEUTIC DRUG LEVEL MON 03/18/2016 ADE FOWLER Ot Z79.899 OTHER NURSING HOME (CURRENT) DRUG THERAPY 04/19/2016 DARÍO BURROWS OYSTER SHUCKER Ot 784.2 SWELLING IN HEAD NECK 04/19/2016 SHERRY ROGEL MD ([facility]) Ot Z02.71 ENCOUNTER FOR DISABILITY DETERMINATION 04/19/2016 BURROWSDARÍO Avelino OYSTER SHUCKER Ot N64.4 MASTODYNIA 04/19/2016 DARÍO BURROWS OYSTER SHUCKER Ot N63 UNSPECIFIED LUMP IN BREAST 04/19/2016 ROB BURROWSFER Avelino OYSTER SHUCKER Ot R92.8 OTH ABN AND INCONCLUSIVE FINDINGS ON DX 04/19/2016 CEE ALSTON MD Ot C50.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 04/19/2016 CEE ALSTON MD Ot Z51.81 ENCOUNTER FOR THERAPEUTIC DRUG LEVEL MON 04/19/2016 CEE ALSTON MD Ot Z79.899 OTHER NURSING HOME (CURRENT) DRUG THERAPY 04/19/2016 CEE ALSTON MD, Ot 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 04/19/2016 CEE ALSTON MD Ot R92.8 OTH ABN AND INCONCLUSIVE FINDINGS ON DX 04/19/2016 SANDRA TANGP Ot 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 04/19/2016 SANDRA TANG BRANDS EDITOR Ot E66.9 OBESITY, UNSPECIFIED 04/19/2016 SANDRA TANGP Ot E78.5 HYPERLIPIDEMIA, UNSPECIFIED 04/19/2016 SANDRA TANG BRANDS EDITOR Ot F17.210 NICOTINE DEPENDENCE, CIGARETTES, UNCOMPL 04/19/2016 SANDRA TANG BRANDS EDITOR Ot F31.9 BIPOLAR DISORDER, UNSPECIFIED 04/19/2016 SANDRA TANGP Ot I10 ESSENTIAL (PRIMARY) HYPERTENSION 04/19/2016 SANDRA TANGP Ot J44.9 CHRONIC OBSTRUCTIVE PULMONARY DISEASE, U 04/19/2016 SANDRA TANGP Ot Z17.1 ESTROGEN RECEPTOR NEGATIVE STATUS [ER-] 04/19/2016 SANDRA TANGP Ot Z68.35 BODY MASS INDEX (BMI) 35.0-35.9, ADULT 04/19/2016 SANDRA TANG BRANDS EDITOR Ot Z79.899 OTHER NURSING HOME (CURRENT) DRUG THERAPY 04/19/2016 CEE ALSTON MD Ot 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 04/19/2016 CEE ALSTON MD Ot Z51.81 ENCOUNTER FOR THERAPEUTIC DRUG LEVEL MON 04/19/2016 CEE ALSTON MD Ot Z79.899 OTHER PERSONALIZED LIVING MANAGER NURSE (CURRENT) DRUG THERAPY 04/19/2016 CEE ALSTON MD [...] 04/19/2016 CEE ALSTON MD Ot Z79.899 OTHER NURSING HOME (CURRENT) DRUG THERAPY 04/19/2016 SANDRA TANG Ot 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 04/19/2016 SANDRA TANG Ot Z79.899 OTHER PERSONALIZED LIVING MANAGER NURSE (CURRENT) DRUG THERAPY 04/19/2016 CEE ALSTON MD [...] 05/06/2016 OMI MURRAY, EULOGIO Ot Z79.899 OTHER NURSING HOME (CURRENT) DRUG THERAPY 05/06/2016 STORMY DARÍO A OYSTER SHUCKER Ot 784.2 SWELLING IN HEAD NECK 05/06/2016 PEBBLES MURRAY, SHERRY You ([facility]) Ot Z02.71 ENCOUNTER FOR DISABILITY DETERMINATION 05/06/2016 DARÍO BURROWS OYSTER SHUCKER Ot N64.4 MASTODYNIA 05/06/2016 DARÍO BURROWS OYSTER SHUCKER Ot N63 UNSPECIFIED LUMP IN BREAST 05/06/2016 DARÍO BURROWS OYSTER SHUCKER Ot R92.8 OTH ABN AND INCONCLUSIVE FINDINGS ON DX 05/06/2016 CEE ALSTON MD Ot C50.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 05/06/2016 CEE ALSTON MD Ot Z51.81 ENCOUNTER FOR THERAPEUTIC DRUG LEVEL MON 05/06/2016 CEE ALSTON MD Ot Z79.899 OTHER PERSONALIZED LIVING MANAGER NURSE (CURRENT) DRUG THERAPY 05/06/2016 CEE ALSTON MD Ot 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 05/06/2016 CEE ALSTON MD Ot R92.8 OTH ABN AND INCONCLUSIVE FINDINGS ON DX 05/06/2016 SANDRA TANG Ot 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 05/06/2016 SANDRA TANG BRANDS EDITOR Ot E66.9 OBESITY, UNSPECIFIED 05/06/2016 SANDRA TANG BRANDS EDITOR Ot E78.5 HYPERLIPIDEMIA, UNSPECIFIED 05/06/2016 SANDRA TANG BRANDS EDITOR Ot F17.210 NICOTINE DEPENDENCE, CIGARETTES, UNCOMPL 05/06/2016 SANDRA TANG BRANDS EDITOR Ot F31.9 BIPOLAR DISORDER, UNSPECIFIED 05/06/2016 SANDRA TANG BRANDS EDITOR Ot I10 ESSENTIAL (PRIMARY) HYPERTENSION 05/06/2016 SANDRA TANGP Ot J44.9 CHRONIC OBSTRUCTIVE PULMONARY DISEASE, U 05/06/2016 SANDRA TANG BRANDS EDITOR Ot Z17.1 ESTROGEN RECEPTOR NEGATIVE STATUS [ER-] 05/06/2016 SANDRA TANG BRANDS EDITOR Ot Z68.35 BODY MASS INDEX (BMI) 35.0-35.9, ADULT 05/06/2016 SANDRA TANG BRANDS EDITOR Ot Z79.899 OTHER PERSONALIZED LIVING MANAGER NURSE (CURRENT) DRUG THERAPY 05/06/2016 CEE ALSTON MD Ot 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 05/06/2016 CEE ALSTON MD Ot Z51.81 ENCOUNTER FOR THERAPEUTIC DRUG LEVEL MON 05/06/2016 CEE ALSTON MD Ot Z79.899 OTHER PERSONALIZED LIVING MANAGER NURSE (CURRENT) DRUG THERAPY 05/06/2016 CEE ALSTON MD [...] 05/06/2016 CEE ALSTON MD Ot Z79.899 OTHER PERSONALIZED LIVING MANAGER NURSE (CURRENT) DRUG THERAPY 05/06/2016 SANDRA TANG BRANDS EDITOR Ot 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 05/06/2016 SANDRA TANG Ot Z79.899 OTHER PERSONALIZED LIVING MANAGER NURSE (CURRENT) DRUG THERAPY 05/06/2016 CEE ALSTON MD [...] 05/06/2016 EULOGIO BRAGA MD, Ot Z79.899 OTHER PERSONALIZED LIVING MANAGER NURSE (CURRENT) DRUG THERAPY 05/24/2016 ADE FOWLER Ot Z51.81 ENCOUNTER FOR THERAPEUTIC DRUG LEVEL MON 05/24/2016 ADE FOWLER Ot Z79.899 OTHER PERSONALIZED LIVING MANAGER NURSE (CURRENT) DRUG THERAPY 05/25/2016 EULOGIO BRAGA MD, [...] 05/25/2016 EULOGIO BRAGA MD, Ot Z79.899 OTHER NURSING HOME (CURRENT) DRUG THERAPY 05/25/2016 ABAD MURRAY MD, [...] LEVEL MON 05/26/2016 JANETHADE Ot Z79.899 OTHER NURSING HOME (CURRENT) DRUG THERAPY 05/26/2016 KARLIE ZHU MD [...] 05/26/2016 KARLIE ZHU MD Ot Z79.899 OTHER NURSING HOME (CURRENT) DRUG THERAPY 05/26/2016 KARLIE ZHU MD [...] 05/27/2016 KARLIE ZHU MD Ot Z79.899 OTHER NURSING HOME (CURRENT) DRUG THERAPY 05/27/2016 KARLIE ZHU MD [...] 06/28/2016 YANG ELKINS MD Ot Z79.899 OTHER NURSING HOME (CURRENT) DRUG THERAPY 06/28/2016 YANG ELKINS MD [...] 07/19/2016 EULOGIO BRAGA MD, Ot Z79.899 OTHER PERSONALIZED LIVING MANAGER NURSE (CURRENT) DRUG THERAPY 07/21/2016 XUN MD, PIRES-DENEEN [...] 07/21/2016 EULOGIO BRAGA MD Ot Z79.899 OTHER PERSONALIZED LIVING MANAGER NURSE (CURRENT) DRUG THERAPY 08/23/2016 EULOGIO BRAGA MD [...] 08/23/2016 EULOGIO BRAGA MD Ot Z79.899 OTHER PERSONALIZED LIVING MANAGER NURSE (CURRENT) DRUG THERAPY 10/18/2016 EULOGIO BRAGA MD [...] 10/18/2016 EULOGIO BRAGA MD Ot Z79.899 OTHER NURSING HOME (CURRENT) DRUG THERAPY 12/29/2016 ADE FOWLER Ot Z51.81 ENCOUNTER FOR THERAPEUTIC DRUG LEVEL [facility] 12/29/2016 ADE FOWLER Ot Z79.899 OTHER NURSING HOME (CURRENT) DRUG THERAPY 12/29/2016 EULOGIO BRAGA MD [...] 12/29/2016 EULOGIO BRAGA MD Ot Z79.899 OTHER NURSING HOME (CURRENT) DRUG THERAPY 12/29/2016 JEFFREY BALL EMILY [...] UNSPECIFIED ASTHMA, UNCOMPLICATED 12/29/2016 JEFFREY BALL EMILY rPyor Ot K21.9 GASTRO-ESOPHAGEAL REFLUX DISEASE WITHOUT 12/29/2016 JEFFREY BALL EMILY Konstantin Ot M06.9 RHEUMATOID ARTHRITIS, UNSPECIFIED 12/29/2016 JEFFREY BALL EMILY Pryor Ot R51 HEADACHE 12/29/2016 JEFFREY BALL EMILY Proyr Ot Z85.828 PERSONAL HISTORY OF OTHER MALIGNANT [...] 01/03/2017 EULOGIO BRAGA MD Ot Z79.899 OTHER PERSONALIZED LIVING MANAGER NURSE (CURRENT) DRUG THERAPY 01/07/2017 KAYLA MELENDEZ APRN [...] 01/21/2017 EULOGIO BRAGA MD, Ot Z79.899 OTHER NURSING HOME (CURRENT) DRUG THERAPY 03/27/2017 KARLIE ZHU MD [...] HEADACHE 03/27/2017 KARLIE ZHU MD, Ot Z79.52 NURSING HOME (CURRENT) USE OF SYSTEMIC STER 03/27/2017 KARLIE [...] 03/29/2017 EULOGIO BRAGA MD, Ot Z79.899 OTHER NURSING HOME (CURRENT) DRUG THERAPY 03/29/2017 MARKO MD, KARLIE [...] HEADACHE 03/29/2017 KARLIE ZHU MD, Ot Z79.52 NURSING HOME (CURRENT) USE OF SYSTEMIC STER 03/29/2017 KARLIE [...] 03/30/2017 EULOGIO BRAGA MD Ot Z79.899 OTHER NURSING HOME (CURRENT) DRUG THERAPY 05/20/2017 ADE FOWLER Ot Z51.81 ENCOUNTER FOR THERAPEUTIC DRUG LEVEL MON 05/20/2017 ADE FOWLER Ot Z79.899 OTHER PERSONALIZED LIVING MANAGER NURSE (CURRENT) DRUG THERAPY 05/20/2017 ANAIS MEREDITH MD [...] 05/20/2017 ANAIS MEREDITH MD Ot Z79.899 OTHER PERSONALIZED LIVING MANAGER NURSE (CURRENT) DRUG THERAPY 05/20/2017 ADE FOWLER Ot Z51.81 ENCOUNTER FOR THERAPEUTIC DRUG LEVEL MON 05/20/2017 ADE FOWLER Ot Z79.899 OTHER PERSONALIZED LIVING MANAGER NURSE (CURRENT) DRUG THERAPY 05/20/2017 ANAIS MEREDITH MD [...] 05/20/2017 ANAIS MEREDITH MD Ot Z79.899 OTHER PERSONALIZED LIVING MANAGER NURSE (CURRENT) DRUG THERAPY 05/20/2017 JEFFREY DO EMILY [...] MON 05/20/2017 ADE FOWLER Ot Z79.899 OTHER PERSONALIZED LIVING MANAGER NURSE (CURRENT) DRUG THERAPY 05/20/2017 ANAIS MEREDITH MD [...] 05/20/2017 ANAIS MEREDITH MD Ot Z79.899 OTHER NURSING HOME (CURRENT) DRUG THERAPY 05/21/2017 NOELLE MAK MD [...] MON 05/21/2017 ADE FOWLER Ot Z79.899 OTHER PERSONALIZED LIVING MANAGER NURSE (CURRENT) DRUG THERAPY 05/21/2017 ANAIS MEREDITH MD [...] 05/21/2017 ANAIS MEREDITH MD Ot Z79.899 OTHER PERSONALIZED LIVING MANAGER NURSE (CURRENT) DRUG THERAPY 05/23/2017 RAH MURPHY DOA [...] E78.00 PURE HYPERCHOLESTEROLEMIA, UNSPECIFIED 05/23/2017 AUBREE MURRAY, NOLELE Lazar Ot F31.9 BIPOLAR DISORDER, UNSPECIFIED 05/23/2017 AUBREE MURRAY, NOELLE Lazar Ot F41.9 ANXIETY DISORDER, UNSPECIFIED 05/23/2017 AUBREE MRURAY, NOELLE Lazar Ot F60.9 PERSONALITY DISORDER, UNSPECIFIED [...] OF COMP OF PREG, CHLDBR 05/23/2017 NOELLE AMK MD Ot Z90.13 ACQUIRED ABSENCE OF BILATERAL [...] F41.9 ANXIETY DISORDER, UNSPECIFIED 06/03/2017 KAYLA MELENDEZ OYSTER SHUCKER Ot I10 ESSENTIAL (PRIMARY) HYPERTENSION 06/03/2017 KAYLA MELENDEZ APRN Ot J45.909 UNSPECIFIED ASTHMA, UNCOMPLICATED 06/03/2017 KAYLA MELENDEZ APRN Ot K21.9 GASTRO-ESOPHAGEAL REFLUX DISEASE WITHOUT 06/03/2017 KAYLA MELENDEZ APRN Ot M06.9 RHEUMATOID ARTHRITIS, UNSPECIFIED 06/03/2017 KAYLA MELENDEZ APRN Ot R07.89 OTHER CHEST PAIN 06/03/2017 KAYLA MELENDEZ APRN Ot Z79.52 PERSONALIZED LIVING MANAGER NURSE (CURRENT) USE OF SYSTEMIC STER 06/03/2017 KAYLA [...] PAIN 06/06/2017 KAYLA MELENDEZ APRN Ot Z79.52 PERSONALIZED LIVING MANAGER NURSE (CURRENT) USE OF SYSTEMIC STER 06/06/2017 KAYLA [...] PAIN 06/09/2017 KAYLA MELENDEZ APRN Ot Z79.52 NURSING HOME (CURRENT) USE OF SYSTEMIC STER 06/09/2017 KAYLA [...] UNSPECIFIED 06/29/2017 KAYLA MELENDEZ APRN Ot Z79.52 NURSING HOME (CURRENT) USE OF SYSTEMIC STER 06/29/2017 KAYLA MELENDEZ APRN Ot Z87.59 PERSONAL HISTORY OF COMP OF PREG, CHLDBR 06/29/2017 KAYLA MELENDEZ APRN Ot Z90.13 ACQUIRED ABSENCE OF BILATERAL BREASTS AN 06/29/2017 KAYLA MELENDEZ APRN Ot Z92.21 PERSONAL HISTORY OF ANTINEOPLASTIC CHEMO 06/29/2017 DAE FOWLER Ot Z51.81 ENCOUNTER FOR THERAPEUTIC DRUG LEVEL MON 06/29/2017 ADE FOWLER Ot Z79.899 OTHER PERSONALIZED LIVING MANAGER NURSE (CURRENT) DRUG THERAPY 06/29/2017 ANAIS MEREDITH MD [...] 06/29/2017 ANAIS MEREDITH MD Ot Z79.899 OTHER NURSING HOME (CURRENT) DRUG THERAPY 07/01/2017 KAYLA MELENDEZ APRN [...] UNSPECIFIED 07/01/2017 KAYLA MELENDEZ APRN Ot Z79.52 PERSONALIZED LIVING MANAGER NURSE (CURRENT) USE OF SYSTEMIC STER 07/01/2017 KAYLA [...] PAIN 07/04/2017 ZEKE ARCHER MD Ot Z79.52 PERSONALIZED LIVING MANAGER NURSE (CURRENT) USE OF SYSTEMIC STER 07/04/2017 ZEKE [...] PAIN 07/06/2017 ZEKE ARCHER MD Ot Z79.52 PERSONALIZED LIVING MANAGER NURSE (CURRENT) USE OF SYSTEMIC STER 07/06/2017 ZEKE [...] Ot I10 ESSENTIAL (PRIMARY) HYPERTENSION 07/09/2017 KARLIE HZU MD Ot J45.909 UNSPECIFIED ASTHMA, UNCOMPLICATED 07/09/2017 [...] REFLUX DISEASE WITHOUT 07/26/2017 MELENDEZ, PETER J OYSTER SHUCKER Ot R51 HEADACHE 07/26/2017 KAYLA MELENDEZ OYSTER SHUCKER Ot Z87.59 PERSONAL HISTORY OF COMP OF PREG, CHLDBR 07/26/2017 KAYLA MELENDEZ OYSTER SHUCKER Ot Z90.13 ACQUIRED ABSENCE OF BILATERAL BREASTS AN 07/26/2017 KAYLA MELENDEZ OYSTER SHUCKER Ot Z90.49 ACQUIRED ABSENCE OF OTHER SPECIFIED PART 08/02/2017 KARENMADELINE Harding BRANDS EDITOR Ot C50.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 08/02/2017 KAREN, MADELINE BRANDS EDITOR Ot C79.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 08/02/2017 KAREN, MADELINE BRANDS EDITOR Ot E78.00 PURE HYPERCHOLESTEROLEMIA, UNSPECIFIED 08/02/2017 KAREN, MADELINE BRANDS EDITOR Ot F17.210 NICOTINE DEPENDENCE, CIGARETTES, UNCOMPL 08/02/2017 KAREN, MADELINE BRANDS EDITOR Ot F31.9 BIPOLAR DISORDER, UNSPECIFIED 08/02/2017 KAREN MADELINE BRANDS EDITOR Ot F41.9 ANXIETY DISORDER, UNSPECIFIED 08/02/2017 KAREN, MADELINE BRANDS EDITOR Ot 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) 08/02/2017 KAREN, MADELINE BRANDS EDITOR Ot I10 ESSENTIAL (PRIMARY) HYPERTENSION 08/02/2017 KAREN, MADELINE BRANDS EDITOR Ot J45.909 UNSPECIFIED ASTHMA, UNCOMPLICATED 08/02/2017 KAREN, MADELINE BRANDS EDITOR Ot K21.9 GASTRO-ESOPHAGEAL REFLUX DISEASE WITHOUT 08/02/2017 KAREN, MADELINE BRANDS EDITOR Ot K62.5 HEMORRHAGE OF ANUS AND RECTUM 08/02/2017 KAREN, MADELINE BRANDS EDITOR Ot M06.9 RHEUMATOID ARTHRITIS, UNSPECIFIED 08/02/2017 KAREN, MADELINE BRANDS EDITOR Ot R19.5 OTHER FECAL ABNORMALITIES 08/02/2017 KAREN, MADELINE BRANDS EDITOR Ot Z87.59 PERSONAL HISTORY OF COMP OF PREG, CHLDBR 08/02/2017 KAREN, MADELINE BRANDS EDITOR Ot Z90.13 ACQUIRED ABSENCE OF BILATERAL BREASTS AN 08/02/2017 KAREN MADELINE BRANDS EDITOR Ot Z90.89 ACQUIRED ABSENCE OF OTHER ORGANS 08/02/2017 KAREN, MADELINE BRANDS EDITOR Ot Z92.21 PERSONAL HISTORY OF ANTINEOPLASTIC CHEMO 08/04/2017 KAREN MADELINE BRANDS EDITOR Ot C50.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 08/04/2017 KAREN MADELINE BRANDS EDITOR Ot C79.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 08/04/2017 KARENMADELINE Harding BRANDS EDITOR Ot E78.00 PURE HYPERCHOLESTEROLEMIA, UNSPECIFIED 08/04/2017 KARENMADELINE HardingP Ot F17.210 NICOTINE DEPENDENCE, CIGARETTES, UNCOMPL 08/04/2017 KARENMADELINE HardingP Ot F31.9 BIPOLAR DISORDER, UNSPECIFIED 08/04/2017 KARENMADELINE Harding BRANDS EDITOR Ot F41.9 ANXIETY DISORDER, UNSPECIFIED 08/04/2017 KARENMADELINE [...] R19.5 OTHER FECAL ABNORMALITIES 08/04/2017 KARENMADELINE Harding BRANDS EDITOR Ot Z87.59 PERSONAL HISTORY OF COMP OF PREG, CHLDBR 08/04/2017 MADELINE JONESP Ot Z90.13 ACQUIRED ABSENCE OF BILATERAL BREASTS AN 08/04/2017 MADELINE JONESP Ot Z90.89 ACQUIRED ABSENCE OF OTHER ORGANS 08/04/2017 KARENMADELINE Harding BRANDS EDITOR Ot Z92.21 PERSONAL HISTORY OF ANTINEOPLASTIC CHEMO [...] ANEMIA DUE TO ANTINEOPLASTIC CHEMOTHERAP 09/26/2017 EMILY MURPHY DO Ot E78.00 PURE HYPERCHOLESTEROLEMIA, UNSPECIFIED 09/26/2017 [...] ABSENCE OF BILATERAL BREASTS AN 10/03/2017 KAYLA EMLENDEZ APRN Ot Z90.89 ACQUIRED ABSENCE OF OTHER [...] F41.9 ANXIETY DISORDER, UNSPECIFIED 10/05/2017 KAYLA MELENDEZ OYSTER SHUCKER Ot I10 ESSENTIAL (PRIMARY) HYPERTENSION 10/05/2017 KAYLA [...] 01/12/2018 ANAIS MEREDITH MD Ot Z79.899 OTHER PERSONALIZED LIVING MANAGER NURSE (CURRENT) DRUG THERAPY 01/12/2018 ADE FOWLER Ot Z51.81 ENCOUNTER FOR THERAPEUTIC DRUG LEVEL MON 01/12/2018 ADE FOWLER Ot Z79.899 OTHER PERSONALIZED LIVING MANAGER NURSE (CURRENT) DRUG THERAPY 03/18/2018 ADE FOWLER Ot Z51.81 ENCOUNTER FOR THERAPEUTIC DRUG LEVEL MON 03/18/2018 ADE FOWLER Ot Z79.899 OTHER PERSONALIZED LIVING MANAGER NURSE (CURRENT) DRUG THERAPY 03/18/2018 ADE FOWLER Ot Z51.81 ENCOUNTER FOR THERAPEUTIC DRUG LEVEL MON 03/18/2018 ADE FOWLER Ot Z79.899 OTHER NURSING HOME (CURRENT) DRUG THERAPY Procedures There is no [...] INFLUENZA A AND B ANTIGENS BY IA [facility] Bacterial blood culture - 05/24/16 19:47 Bacterial blood culture [facility] Complete blood count (CBC) with automated [...] culture - 05/24/16 20:59 Bacterial urine culture [id number] NRG COLONY COUNT >100,000/ML NRG FTX;REPORTABLE PLUS, [...] NRG Blood erythrocyte morphology finding identification NORMAL [facility] Comprehensive metabolic panel - 05/26/16 13:34 Serum [...] 10/03/17 14:31 Bacterial blood culture NG NRG Complete blood count (CBC) with automated white blood cell (WBC) differential - 03/18/18 12:57 Blood leukocytes automated count (number/volume) 8.7 10*3/uL 4.3-11.0 Blood erythrocytes automated count (number/volume) 4.98 10*6/uL 4.35-5.85 Venous blood hemoglobin measurement (mass/volume) 15.1 g/dL 11.5-16.0 Blood hematocrit (volume fraction) 45 % 35-52 Automated erythrocyte mean corpuscular volume 90 [foz_us] 80-99 Automated erythrocyte mean corpuscular hemoglobin (mass per erythrocyte) 30 pg 25-34 Automated erythrocyte mean corpuscular hemoglobin concentration measurement ( mass/volume) 34 g/dL 32-36 Automated erythrocyte distribution width ratio 14.7 % 10.0-14.5 Automated blood platelet count (count/volume) 207 10*3/uL 130-400 Automated blood platelet mean volume measurement 9.3 [foz_us] 7.4-10.4 Automated blood neutrophils/100 leukocytes 81 % 42-75 Automated blood lymphocytes/100 leukocytes 12 % 12-44 Blood monocytes/100 leukocytes 5 % 0-12 Automated blood eosinophils/100 leukocytes 1 % 0-10 Automated blood basophils/100 leukocytes 0 % 0-10 Blood neutrophils automated count (number/volume) 7.1 10*3 1.8-7.8 Blood lymphocytes automated count (number/volume) 1.1 10*3 1.0-4.0 Blood monocytes automated count (number/volume) 0.4 10*3 0.0-1.0 Automated eosinophil count 0.1 10*3/uL 0.0-0.3 Automated blood basophil count (count/volume) 0.0 10*3/uL 0.0-0.1 Comprehensive metabolic panel - 03/18/18 12:57 Serum or plasma sodium measurement (moles/volume) 139 mmol/L 135-145 Serum or plasma potassium measurement (moles/volume) 3.9 mmol/L 3.6-5.0 Serum or plasma chloride measurement (moles/volume) 107 mmol/L 98-107 Carbon dioxide 20 mmol/L 21-32 Serum or plasma anion gap determination (moles/volume) 12 mmol/L 5-14 Serum or plasma urea nitrogen measurement (mass/volume) 16 mg/dL 7-18 Serum or plasma creatinine measurement (mass/volume) 0.64 mg/dL 0.60-1.30 Serum or plasma urea nitrogen/creatinine mass ratio 25 NRG Serum or plasma creatinine measurement with calculation of estimated glomerular filtration rate > NRG Serum or plasma glucose measurement (mass/volume) 114 mg/dL 70-105 Serum or plasma calcium measurement (mass/volume) 9.3 mg/dL 8.5-10.1 Serum or plasma total bilirubin measurement (mass/volume) 0.4 mg/dL 0.1-1.0 Serum or plasma alkaline phosphatase measurement (enzymatic activity/volume) 71 U/L 40-136 Serum or plasma aspartate aminotransferase measurement (enzymatic activity/ volume) 18 U/L 5-34 Serum or plasma alanine aminotransferase measurement (enzymatic activity/volume ) 19 U/L 0-55 Serum or plasma protein measurement (mass/volume) 7.2 g/dL 6.4-8.2 Serum or plasma albumin measurement (mass/volume) 4.1 g/dL 3.2-4.5 CALCIUM CORRECTED 9.2 mg/dL 8.5-10.1 Fibrin D-dimer FEU measurement in platelet poor plasma (mass/volume) - 12:57 Fibrin D-dimer FEU measurement in platelet poor plasma (mass/volume) 0.24 ug/mL 0.00-0.49 Encounters ACCT No. Visit Date/Time Discharge Status Pt. Type Provider Facility Loc./Unit Complaint [id number] 03/18/2018 12:43:00 03/18/2018 14:23:00 DIS Emergency AUBREE MURRAY, NOELLE Lazar [facility] ER SOB [id number] 10/03/2017 13:46:00 10/03/2017 17:30:00 DIS Emergency KAYLA MELENDEZ APRN [facility] ER RESPI. DISTRESS [id number] 09/25/2017 18:35:00 09/26/2017 08:30:00 DIS Emergency JEFFREY DOEMILY [facility] ER CHILLS/HOT [id number] 08/20/2017 09:31:00 08/20/2017 10:45:00 DIS Emergency JEFFREY DOEMILY [facility] ER NOSE BLEED [id number] 08/02/2017 09:09:00 08/02/2017 12:06:00 DIS Emergency MADELINE JONES [facility] ER BLOOD IN HER STOOL [id number] 07/26/2017 17:31:00 07/26/2017 18:51:00 DIS Emergency KAYLA MELENDEZ APRN [facility] ER GENERAL PAIN [id number] 07/12/2017 20:13:00 07/12/2017 22:30:00 DIS Emergency KAYLA MELENDEZ APRN [facility] ER FALL, ABD PAIN [id number] 07/09/2017 17:00:00 07/09/2017 19:23:00 DIS Emergency KARLIE ZHU MD [facility] ER PT HAS BRAIN TUMOR, PAIN ALL OVER,JAW PAIN [id number] 07/04/2017 09:02:00 07/04/2017 11:29:00 DIS Emergency ZEKE ARCHER MD [facility] ER ABD PAIN AFTER PICC LINE PLACED [id number] 06/29/2017 11:27:00 06/29/2017 13:35:00 DIS Emergency KAYLA MELENDEZ APRN [facility] ER ELEVATED WBC [id number] 06/03/2017 11:53:00 06/03/2017 13:57:00 DIS Emergency KAYLA MELENDEZ APRN [facility] ER JAW PAIN [id number] 05/21/2017 08:03:00 05/21/2017 11:13:00 DIS Emergency AUBREE MURRAY, NOELLE S [facility] ER CHEST PAIN [id number] 05/20/2017 03:45:00 05/20/2017 06:00:00 DIS Emergency EMILY MURPHY DO [facility] ER WOLF [id number] 03/30/2017 00:29:00 03/30/2017 23:59:59 CLS Preadmit MASOUD MURRAY, ANAIS Harding [facility] ONC [id number] 01/12/2017 09:52:00 03/29/2017 00:01:00 DIS Outpatient EULOGIO BRAGA MD [facility] ONC [id number] 03/27/2017 10:40:00 03/27/2017 14:16:00 DIS Emergency MARKO MURRAY, KARLIE Owens [facility] ER BRAIN TUMOR/HEAD PAIN/ L SIDE PAIN [id number] 01/07/2017 14:47:00 01/07/2017 18:14:00 DIS Emergency KAYLA MELENDEZ APRN [facility] ER N/V [id number] 12/29/2016 09:50:00 12/29/2016 11:15:00 DIS Emergency JEFFREY BALL EMILY Konstantin [facility] ER MIGRAINES,NOSEBLEEDS [id number] 07/20/2016 15:28:00 10/18/2016 00:01:00 DIS Outpatient EULOGIO BRAGA MD [facility] ONC [id number] 06/28/2016 08:24:00 06/28/2016 10:05:00 DIS Emergency SEVERO MURRAY, YANG Nassar [facility] ER BREAST AREA PAIN/ BLISTED/BLEEDING FROM RADIATION [id number] 06/24/2016 09:48:00 06/24/2016 23:59:59 CLS Outpatient EULOGIO BRAGA MD [facility] ONC [id number] 05/26/2016 12:42:00 05/26/2016 15:18:00 DIS Emergency MARKO MURRAY, KARLIE Owens [facility] [facility] ER RECTAL BLEEDING/PAIN [id number] 05/24/2016 20:35:00 05/25/2016 13:15:00 DIS Inpatient TERRI MURRAY, ABAD Cifuentes [facility] 4TH FEVER,BRONCHITIS,HYPOXIA, BREAST CA-ON CHEMO AND RA [id number] 03/04/2016 10:37:00 03/04/2016 11:16:00 DIS Emergency MELENDEZKAYLA IGLESIAS Jamarcus GARNER [facility] ER PAIN/SWELLING RIGHT BREAST AREA [id number] 03/01/2016 10:03:00 03/01/2016 23:59:59 CLS Outpatient ADE FOWLER [facility] LAB [id number] 02/16/2016 08:21:00 02/16/2016 12:11:00 DIS Emergency EDIL QURESHI [facility] ER ANXIETY, NEEDING PORT FLUSHED [id number] 05/13/2015 08:02:00 07/30/2015 00:01:00 DIS Outpatient CEE ALSTON MD [facility] ONC [id number] 05/01/2015 11:17:00 05/01/2015 23:59:59 CLS Outpatient CEE ALSTON MD [facility] CARD BREAST CANCER [id number] 04/22/2015 11:06:00 04/22/2015 23:59:59 CLS Preadmit SANDRA TANG [facility] ONC [id number] 04/07/2015 10:59:00 04/14/2015 00:01:00 DIS Outpatient CEE ALSTON MD [facility] ONC [id number] 04/07/2015 11:51:00 04/07/2015 23:59:59 CLS Outpatient SANDRA TANG [facility] ONC [id number] 04/07/2015 11:17:00 04/07/2015 23:59:59 CLS Outpatient CEE ALSTON MD [facility] CARD BREAST CANCER [id number] 03/19/2015 08:29:00 03/19/2015 13:05:00 DIS [facility] [id number] 03/17/2015 06:12:00 03/17/2015 23:59:59 CLS Outpatient CAM BRAGA MD [facility] PREOP RIGHT BREAST CANCER [id number] 02/17/2015 10:18:00 02/17/2015 23:59:59 CLS Outpatient CEE ALSTON MD [facility] 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 [id number] 01/24/2015 13:52:00 01/24/2015 23:59:59 CLS Outpatient CEE ALSTON MD [facility] CARD ENCOUNTER FOR MONITORING CARDIOTOXIC DRUGS [id number] 01/23/2015 14:18:00 01/23/2015 23:59:59 CLS Outpatient SANDRA TANG [facility] ONC [id number] 01/23/2015 09:31:00 01/23/2015 23:59:59 CLS Outpatient CEE ALSTON MD [facility] RAD BREAST CA [id number] 01/22/2015 14:57:00 01/22/2015 23:59:59 CLS Outpatient CEE ALSTON MD [facility] RAD ABN MAMMO [id number] 01/17/2015 09:42:00 01/17/2015 23:59:59 CLS Outpatient CEE ALSTON MD [facility] CARD ENCOUNTER FOR MONITOR CARDIO TOXIC DRUG THERAPY [id number] 01/17/2015 09:38:00 01/17/2015 17:00:00 DIS Outpatient CAM BRAGA MD [facility] SDC BREAST CANCER [id number] 01/15/2015 13:52:00 01/15/2015 23:59:59 CLS Outpatient SHERRY ROGEL MD (DDU) [facility] RT DDU [id number] 01/15/2015 05:43:00 01/15/2015 23:59:59 CLS Outpatient CAM BRAGA MD [facility] PREOP [id number] 01/03/2015 07:05:00 01/03/2015 23:59:59 CLS Outpatient DARÍO BURROWS APRN [facility] RAD ABNORMAL MAMMO, BREAST MASS [id number] 01/01/2015 14:58:00 01/01/2015 23:59:59 CLS Outpatient DARÍO BURROWS APRN [facility] RAD BREAST PAIN RT BREAST [id number] 12/25/2014 16:08:00 12/25/2014 17:23:00 DIS Emergency KAYLA MELENDEZ OYSTER SHUCKER [facility] ER R BREAST SWELLING/ TENDERNESS [id number] 12/19/2014 08:51:00 12/19/2014 11:43:00 DIS Emergency REGINALDO ANNA MD [facility] ER COUGH/FEVER [id number] 11/21/2014 11:43:00 11/21/2014 13:07:00 DIS Emergency KAYLA MELENDEZ OYSTER SHUCKER [facility] ER SOA [id number] 11/08/2014 14:38:00 11/08/2014 16:53:00 DIS Emergency REGINALDO ANNA MD [facility] ER SOA [id number] 10/28/2014 14:21:00 10/28/2014 23:59:59 CLS Outpatient DARÍO BURROWS APRN [facility] RAD LOCALIZE SWELLING MASS OR HEAD 3 ABNORMAL GROWTHS [id number] 10/11/2014 09:35:00 10/11/2014 10:09:00 DIS Emergency REGINALDO ANNA MD [facility] ER RASH [id number] 09/27/2014 09:09:00 09/27/2014 10:19:00 DIS Emergency KARLIE ZHU MD [facility] ER [id number] 03/22/2018 17:23:00 ACT Emergency KAYLA MELENDEZ OYSTER SHUCKER [facility] ER RT SIDED TINGLING
[2018-03-22] MEDS ORDERED: morphine INJ 10 MG/ML 1ML (SYR OR VIAL) IVP ONE (17:45)
--- NOTE | 2018-03-22 17:46 | ED General ---
General Chief Complaint: General Problems/Pain Stated Complaint: RT SIDED TINGLING Nursing Triage Note: pt reports r sided arm tingling x 4 days. pt states she can also feel it in the r side of her neck and down her leg. Nursing Sepsis Screen: No Definite Risk Source of Information: Patient Exam Limitations: No Limitations History of Present Illness Date Seen by Provider: Mar 22, 2018 Time Seen by Provider: 17:44 Initial Comments To ER per EMS from home with reports of a 4-5 day history of right-sided tingling in the arm and leg. She also has headaches. 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 Timing/Duration: 1-2 Days Severity: Moderate Associated Systoms: Headaches Allergies and Home Medications Allergies Coded Allergies: ciprofloxacin (Verified Allergy, Unknown, 03/22/18) Home Medications Azithromycin 500 Mg Tablet, 500 MG PO DAILY FOR INFECTION Prescribed by: EMILY MURPHY on 09/26/17 0732 Cefdinir 300 Mg Capsule, 300 MG PO BID Prescribed by: EMILY MURPHY on 09/26/17 0732 Morphine Sulfate 15 Mg Tablet.er, 15 MG PO BID PRN for PAIN-BREAKTHROUGH Prescribed by: ZEKE ARCHER on 07/04/17 1118 Morphine Sulfate 15 Mg Tablet.er, 15 MG PO BID Prescribed by: KARLIE ZHU on 07/09/17 1902 Mupirocin Calcium 1 Gm Oint...g., 1 GM NS BID Prescribed by: EMILY MURPHY on 08/20/17 1037 Potassium Chloride 20 Meq Tablet.er, 40 MEQ PO DAILY Prescribed by: KAYLA WADSWORTH on 10/03/17 1700 Patient Home Medication List Home Medication List Reviewed: Yes Review of Systems Review of Systems Constitutional: see HPI EENTM: see HPI Respiratory: no symptoms reported Cardiovascular: no symptoms reported Musculoskeletal: no symptoms reported Skin: no symptoms reported Psychiatric/Neurological: See HPI, Headache, Paresthesia Hematologic/Lymphatic: No Symptoms Reported Past Lsweasu-Gnxziq-Lanlwo Hx Patient Social History Alcohol Use: Denies Use Recreational Drug Use: No Smoking Status: Current Everyday Smoker Type Used: Cigarettes 2nd Hand Smoke Exposure: Yes Recent Foreign Travel: No Contact w/Someone Who Travel: No Recent Infectious Disease Expo: No Recent Hopitalizations: No (SEEN IN ED NUMEROUS TIMES) Physical Abuse: No Sexual Abuse: No Mistreated: No Fear: No Immunizations Up To Date Tetanus Booster (TDap): Unknown Seasonal Allergies Seasonal Allergies: No Past Medical History Surgeries: Yes (INFUSAPORT; BILATERAL MASTECTOMY) Appendectomy, Breast, Section, Gallbladder, Vascular Surgery Respiratory: Yes Asthma Cardiac: Yes High Cholesterol, Hypertension Neurological: Yes (BRAIN METS FROM BREAST CANCER) 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: No (THROUGH MENOPAUSE) Female 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 Sexually Transmitted Disease: No HIV/AIDS: No Genitourinary: No Gastrointestinal: Yes Gastroesophageal Reflux Musculoskeletal: Yes Rheumatoid Arthritis, Chronic Back Pain Endocrine: No HEENT: Yes (TEETH REMOVED) Loss of Vision: Denies Hearing Impairment: Denies Cancer: Yes Brain, Skin, Breast Did You Recieve Any Treatments: Yes What Type of Treatment Did You: Chemotherapy, Radiation, Surgical Intervention Psychosocial: Yes Anxiety, Bipolar, Personality Disorder, Depression Integumentary: No Blood Disorders: Yes (ANEMIA WITH CHEMO) Adverse Reaction/Blood Tranf: No (HAS HAD BLOOD TRANSFUSION WITH NO PROBLEM) Family Medical History Not obtainable due to adoption (ADOPTION) No Pertinent Family Hx Physical Exam Vital Signs Vital Signs - First Documented 03/22/18 17:26 Temp 98.1 Pulse 83 Resp 20 B/P (MAP) 133/97 (109) Pulse Ox 96 Capillary Refill : Less Than 3 Seconds Height, Weight, BMI Height: 5'5.00" Weight: 158lbs. 11.2oz. 71.857943rv; 31.2 BMI Method:Stated General Appearance: No Apparent Distress, WD/WN, Other (alert and oriented GCS 15.) Eyes: Bilateral Eye Normal Inspection, Bilateral Eye PERRL, Bilateral Eye EOMI HEENT: PERRL/EOMI, TMs Normal Neck: Full Range of Motion, Normal Inspection Respiratory: No Accessory Muscle Use, No Respiratory Distress Cardiovascular: Regular Rate, Rhythm, Normal Peripheral Pulses Gastrointestinal: Normal Bowel Sounds, Non Tender, Soft Extremity: Normal Capillary Refill, Normal Inspection Neurologic/Psychiatric: Alert, Oriented x3 Skin: Normal Color, Warm/Dry Progress/Results/Core Measures Suspected Sepsis Recent Fever Within 48 Hours: No Infection Criteria Present: None New/Unexplained Altered Menta: No Sepsis Screen: No Definite Risk SIRS Temperature:98.1 Pulse: 83 Respiratory Rate: 20 Laboratory Tests 03/22/18 17:45: White Blood Count 8.6 Blood Pressure 133 /97 Mean: 109 Laboratory Tests 03/22/18 17:45: Creatinine 0.73, Platelet Count 263 Results/Orders Lab Results Laboratory Tests Test 03/22/18 17:45 Range/Units White Blood Count 8.6 4.3-11.0 10^3/uL Red Blood Count 5.02 4.35-5.85 10^6/uL Hemoglobin 15.2 11.5-16.0 G/DL Hematocrit 44 35-52 % Mean Corpuscular Volume 88 80-99 FL Mean Corpuscular Hemoglobin 30 25-34 PG Mean Corpuscular Hemoglobin Concent 34 32-36 G/DL Red Cell Distribution Width 14.0 10.0-14.5 % Platelet Count 263 130-400 10^3/uL Mean Platelet Volume 9.3 7.4-10.4 FL Neutrophils (%) (Auto) 79 H 42-75 % Lymphocytes (%) (Auto) 15 12-44 % Monocytes (%) (Auto) 5 0-12 % Eosinophils (%) (Auto) 1 0-10 % Basophils (%) (Auto) 0 0-10 % Neutrophils # (Auto) 6.8 1.8-7.8 X 10^3 Lymphocytes # (Auto) 1.3 1.0-4.0 X 10^3 Monocytes # (Auto) 0.4 0.0-1.0 X 10^3 Eosinophils # (Auto) 0.1 0.0-0.3 10^3/uL Basophils # (Auto) 0.0 0.0-0.1 10^3/uL Sodium Level 138 135-145 MMOL/L Potassium Level 4.1 3.6-5.0 MMOL/L Chloride Level 106 98-107 MMOL/L Carbon Dioxide Level 19 L 21-32 MMOL/L Anion Gap 13 5-14 MMOL/L Blood Urea Nitrogen 16 7-18 MG/DL Creatinine 0.73 0.60-1.30 MG/DL Estimat Glomerular Filtration Rate > 60 BUN/Creatinine Ratio 22 Glucose Level 95 70-105 MG/DL Calcium Level 9.5 8.5-10.1 MG/DL My Orders Orders - KAYLA WADSWORTH APRN Cbc With Automated Diff (03/22/18 17:36) Basic Metabolic Panel (03/22/18 17:36) Iv Heplock-Insert (Order) (03/22/18 17:36) Morphine Injection (Morphine Injection (03/22/18 17:45) Ct Head Wo (03/22/18 17:37) Medications Given in ED Current Medications Medications Dose Ordered Sig/Nilda Route Start Time Stop Time Status Last Admin Dose Admin Morphine Sulfate 5 mg ONCE ONCE IVP 03/22/18 17:45 03/22/18 17:46 DC 03/22/18 18:20 5 MG Vital Signs/I&O 03/22/18 17:26 Temp 98.1 Pulse 83 Resp 20 B/P (MAP) 133/97 (109) Pulse Ox 96 Capillary Refill : Less Than 3 Seconds Blood Pressure Mean: 109 Diagnostic Imaging Diagonstic Imaging: CT Comments NAME: CLARITA RODRIGUEZ [facility] REC#: [id number] PT STATUS: REG ER : 1965 PHYSICIAN: KAYLA WADSWORTH APRN ADMIT DATE: 03/22/18/ER Draft Date of Exam:03/22/18 CT HEAD WO PROCEDURE: CT head without contrast. TECHNIQUE: Multiple contiguous axial images were obtained through the brain without the use of intravenous contrast. INDICATION: Brain tumor. FINDINGS: The previous CT head exam of 07/26/2017 noted a 1.7 x 1.9 cm area of low density in the right frontal lobe periphery. This finding seems stable when compared to the prior exam of 05/20/2017. This area now measures 1.1 x 1.4 cm. The prior study also identified an area of mixed density along the left cerebellar convexity. That finding seems unchanged as well. There is no new mass, shift of the midline, or hemorrhage. There is a new small area of diminished density in the left basal ganglia. This may be related to encephalomalacia from an infarct which has occurred in the interval since the prior exam. It would be less likely that this is due to brain edema from a subacute infarct. The ventricles are not abnormally dilated and stable in size when compared to the prior study. The cortical atrophy noted on the prior exam has not progressed. The bone windows show no sign of a fracture or of a destructive lesion. The sinuses and orbits were not visualized in their entirety. There is mucosal thickening of the ethmoid sinuses, particularly on the right. IMPRESSION: 1. There is no evidence for an acute intracranial abnormality. The area of diminished density along the right frontal lobe periphery seen previously actually measures somewhat smaller than on the prior exam. The area of mixed density in the left cerebellar convexity is unchanged. 2. The area of diminished density in the left basal ganglia is of uncertain etiology but may be due to an infarct which has occurred in the interval since the prior study. 3. If clinical concern regarding an underlying abnormality persists, then MRI would be recommended for further evaluation. 4. These results will be discussed with Kayla Wadsworth APRN in the ER. Dictated on workstation # [id number] Dict: 03/22/18 1804 Trans: 03/22/18 1817 [id number] Interpreted by: ANGIE FELDMAN MD Electronically signed by: Departure Communication (Admissions) I discussed the case with Dr. Webster. Since the patient's symptoms have been ongoing for at least 4 days, she is not on aspirin we will start her on aspirin and ensure close follow-up with [facility]. I also discussed the case with Dr. Warren paper cone maker for [facility]. If the patient calls tomorrow morning she will arrange close follow-up. Impression Primary Impression: Anxiety Additional Impression: Abnormal CT of brain Disposition: HOME, SELF-CARE Condition: Stable Departure-Patient Inst. Decision time for Depature: 19:03 Referrals: ABAD MURRAY MD (PCP/Family) Primary Care Physician Patient Instructions: General (DC) Add. Discharge Instructions: 1. Return to ER for any concerns 2. Follow-up with your doctor next week. Call tomorrow morning to make an appointment to be seen. 3. All discharge instructions reviewed with patient and/or family. Voiced understanding. Scripts Oxycodone HCl/Acetaminophen (Percocet 10-325 mg Tablet) 1 Each Tablet 1 TAB PO Q6H PRN for PAIN-MODERATE MDD 3, #14 TAB Prov: KAYLA WADSWORTH APRN 03/22/18 Copy Copies To 1: ABAD MURRAY MD, PETER J APRN Mar 22, 2018 17:46
[2018-03-22 18:00] LABS: BASOPHILS % (AUTO) 0 % (0-10); EOSINOPHILS # (AUTO) 0.1 10^3/uL (0.0-0.3); EOSINOPHILS % (AUTO) 1 % (0-10); HEMATOCRIT 44 % (35-52); HEMOGLOBIN 15.2 G/DL (11.5-16.0); LYMPHOCYTES # (AUTO) 1.3 X 10^3 (1.0-4.0); LYMPHOCYTES % (AUTO) 15 % (12-44); MEAN CORPUSCULAR HEMOGLOBIN 30 PG (25-34); MEAN CORPUSCULAR HGB CONC 34 G/DL (32-36); MEAN CORPUSCULAR VOLUME 88 FL (80-99); MEAN PLATELET VOLUME 9.3 FL (7.4-10.4); MONOCYTES # (AUTO) 0.4 X 10^3 (0.0-1.0); MONOCYTES % (AUTO) 5 % (0-12); NEUTROPHILS # (AUTO) 6.8 X 10^3 (1.8-7.8); NEUTROPHILS % (AUTO) 79 % (42-75); PLATELET COUNT 263 10^3/uL (130-400); WHITE BLOOD COUNT 8.6 10^3/uL (4.3-11.0)
--- NOTE | 2018-03-22 18:18 | Diagnostic Imaging Report ---
PROCEDURE: CT head without contrast. TECHNIQUE: Multiple contiguous axial images were obtained through the brain without the use of intravenous contrast. INDICATION: Brain tumor. FINDINGS: The previous CT head exam of 07/26/2017 noted a 1.7 x 1.9 cm area of low density in the right frontal lobe periphery. This finding seems stable when compared to the prior exam of 05/20/2017. This area now measures 1.1 x 1.4 cm. The prior study also identified an area of mixed density along the left cerebellar convexity. That finding seems unchanged as well. There is no new mass, shift of the midline, or hemorrhage. There is a new small area of diminished density in the left basal ganglia. This may be related to encephalomalacia from an infarct which has occurred in the interval since the prior exam. It would be less likely that this is due to brain edema from a subacute infarct. The ventricles are not abnormally dilated and stable in size when compared to the prior study. The cortical atrophy noted on the prior exam has not progressed. The bone windows show no sign of a fracture or of a destructive lesion. The sinuses and orbits were not visualized in their entirety. There is mucosal thickening of the ethmoid sinuses, particularly on the right. IMPRESSION: 1. There is no evidence for an acute intracranial abnormality. The area of diminished density along the right frontal lobe periphery seen previously actually measures somewhat smaller than on the prior exam. The area of mixed density in the left cerebellar convexity is unchanged. 2. The area of diminished density in the left basal ganglia is of uncertain etiology but may be due to an infarct which has occurred in the interval since the prior study. 3. If clinical concern regarding an underlying abnormality persists, then MRI would be recommended for further evaluation. 4. These results will be discussed with Fabio Wadsworth APRN in the ER. Dictated by: Dictated on workstation # [id number]
[2018-03-22 18:19] LABS: BUN/CREATININE RATIO 22; CALCIUM 9.5 MG/DL (8.5-10.1); CARBON DIOXIDE 19 MMOL/L (21-32); CHLORIDE 106 MMOL/L (98-107); CREATININE SERUM 0.73 MG/DL (0.60-1.30); GFR ESTIMATED > 60; GLUCOSE 95 MG/DL (70-105); POTASSIUM 4.1 MMOL/L (3.6-5.0); SODIUM 138 MMOL/L (135-145)
[2018-03-22] MEDS ORDERED: OXYC1TAB12 PO (19:12)
[2018-03-22] MEDS ORDERED: RX-OXYCODONE/APAP 5-325 MG #4 TAB PK PO PRN (19:15)
[2018-03-22 19:19] VITALS: BP 125/83
== END 2018-03-22 19:19 | disposition home or self-care (01) ==
LOC: EDUNIT# 17:22 → ER 17:23
DX: F41.9 Anxiety disorder, unspecified (principal); R93.0 Abnormal findings on diagnostic imaging of skull and head, not elsewhere classified; J45.909 Unspecified asthma, uncomplicated; E78.00 Pure hypercholesterolemia, unspecified; I10 Essential (primary) hypertension; K21.9 Gastro-esophageal reflux disease without esophagitis; M06.9 Rheumatoid arthritis, unspecified; F31.9 Bipolar disorder, unspecified; D64.9 Anemia, unspecified; Z92.21 Personal history of antineoplastic chemotherapy; Z85.828 Personal history of other malignant neoplasm of skin; Z90.13 Acquired absence of bilateral breasts and nipples; Z90.49 Acquired absence of other specified parts of digestive tract; Z98.890 Other specified postprocedural states; Z88.1 Allergy status to other antibiotic agents; Z85.3 Personal history of malignant neoplasm of breast; Z85.841 Personal history of malignant neoplasm of brain
CPT/HCPCS: 36415; 70450; 80048; 85025

== ENCOUNTER 2018-03-31 22:20 | Emergency (ER) | payer MEDICAID ==
[~2018-03-31] VITALS: Ht 165.1 cm; Wt 70.3 kg
[~2018-03-31 22:20] MED LIST changes: +OXYC1TAB12 PO
--- OUTSIDE RECORDS SUMMARY | 2018-03-31 22:25 | XMS REPORT | Encounter Summary ---
Author Author [facility] Organization [facility] Address Unknown Phone Unavailable Care Team Providers Care Fire And Safety Helper Name Role Phone Porfirio Spence MD PCP Agustina Vines DO Unavailable Encounter Details Care Team Description Date [place] [address] [id number] [phone] 01/24/2018 Orders Only [facility] - OP Exam [address] [id number] Social History Date Tobacco Use [...] * Angelika Crawford - 01/24/2018 10:13 AM TELEPHONE STATION INSTALLER LEFT MSG REG APPT. MUST BRING SOMEONE TO APT PER PHONE STATION INSTALLER * Gabe Alexis, BARRY - 01/24/2018 10:13 AM TELEPHONE STATION INSTALLER Verbal order received from Dr Lopez for follow up visit with her family to discuss her care. Scheduling notified. and pt. instructed she should have someone come in with her for this appointment. Pt verbalized understanding. PHONE STATION INSTALLER in this encounter Plan of Treatment Not on fileas of this encounter Visit Diagnoses Not on filein this encounter
--- OUTSIDE RECORDS SUMMARY | 2018-03-31 22:25 | XMS REPORT | Clinical Summary ---
Author Author [facility] Organization [facility] Address Unknown Phone Unavailable Care Team Providers Care Automobile Parker Name Role Phone Porfirio Spence MD PCP Agustina Vines DO Unavailable Source Comments Some departments are not documenting in the electronic medical record. 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 diagnosis: Left breast no evidence of [...] 12/30/2016--01/12/2017 whole brain radiation therapy 10 fractions [facility] 01/17/2017 [facility] nuclear medicine bone scan impression metastatic [...] [facility] 06/21/[address] had neck chest abdomen at [facility]: Changes of bilateral mastectomy. No recurrent chest wall masses identified. No evidence of regional or distant metastatic disease. Small amount of radiopharmaceutical uptake surrounding the tip of the chest port. 06/21/2017 [facility] MRI head: Heterogeneously enhancing right frontal lobe [...] no calvarial lesion seen 07/12/2017 [facility] emergency room CT abdomen pelvis no acute intra-abdominal findings are demonstrated. No mention of changes worrisome for metastatic disease. 06/27/2017 [facility] Agustina Vines comment made the patient will return for second dose of Kadcyla 07/26/[address] [facility] CT head, overall stable noncontrast CT the brain when compared to 05/20/2017. Right frontal lobe and left cerebellar abnormalities are stable. No new abnormality is detected. 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 Note that on the MRI dated 06/21/2017 nice they specifically said no calvarial lesions. The CT head done on 07/26/2017 does not mention bony disease. Mentioned ordering PET CT and MRI head 11/28/2017 first [facility] clinic visit, talked about checking PET/CT and [...] doxil, trial tamox or arimidex, hormonal if science job titles Personality disorder 09/10/2014 Depressive disorder, not elsewhere [...] MD Follow-up Phone Call 01/12/2018 Telephone Oncology from Last 3 Months Family History * Patient is adopted Medical History Relation Name Comments Mental Illness Son lives in [place] with his father. Relation Name Status Comments [...] Taken Vital Sign Reading 01/24/2018 8:43 AM RESEARCH DEVELOPMENT DIRECTOR Blood Pressure 151/99 01/24/2018 8:43 AM RESEARCH DEVELOPMENT DIRECTOR Pulse 84 01/24/2018 8:43 AM RESEARCH DEVELOPMENT DIRECTOR Temperature 36.7 C (98 F) 01/24/2018 8:43 AM RESEARCH DEVELOPMENT DIRECTOR Respiratory Rate 18 01/24/2018 8:43 AM RESEARCH DEVELOPMENT DIRECTOR Oxygen Saturation 97% - Inhaled Oxygen - Concentration 01/24/2018 8:43 AM RESEARCH DEVELOPMENT DIRECTOR Weight 69 kg (152 lb 3.2 oz) 01/24/2018 8:43 AM RESEARCH DEVELOPMENT DIRECTOR Height 165.1 cm (5' 5") 01/24/2018 8:43 AM RESEARCH DEVELOPMENT DIRECTOR Body Mass Index 25.33 Plan of Treatment Health Maintenance Due Date Last Done Comments HEPATITIS C SCREENING 1965 PHYSICAL (COMPREHENSIVE) 11/07/1971 EXAM HIV SCREENING 11/07/1979 DTAP/TDAP VACCINES (1 - 1982 Tdap) CERVICAL CANCER SCREENING 1994 BREAST CANCER SCREENING 2004 COLORECTAL CANCER 2014 SCREENING SHINGLES RECOMBINANT 2014 VACCINE (1 of 2) INFLUENZA VACCINE 09/07/2017 Results Not on filefrom Last 3 Months Insurance Payer Benefit Subscriber ID Type Phone Address Plan / Group MEDICARE MEDICARE xxxxxxxxxxx Medicare PART A AND B [facility] MEDICAID [facility] xxxxxxxxxxx Medicaid [employer] [place] [facility] xxxxxxxxxx [place] [facility] Advance Directives Patient has advance care planning documents on file. For more information, please contact: [facility] [address] [place] [address]
--- OUTSIDE RECORDS SUMMARY | 2018-03-31 22:25 | XMS REPORT | Encounter Summary ---
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 Office Visit [facility] - OP Radiation Therapy [address] [address] Social History Date Tobacco Use Types Packs/Day [...] Taken Vital Sign Reading 01/24/2018 8:43 AM RAILROAD CONSTRUCTION DIRECTOR Blood Pressure 151/99 01/24/2018 8:43 AM RAILROAD CONSTRUCTION DIRECTOR Pulse 84 01/24/2018 8:43 AM RAILROAD CONSTRUCTION DIRECTOR Temperature 36.7 C (98 F) 01/24/2018 8:43 AM RAILROAD CONSTRUCTION DIRECTOR Respiratory Rate 18 01/24/2018 8:43 AM RAILROAD CONSTRUCTION DIRECTOR Oxygen Saturation 97% - Inhaled Oxygen - Concentration 01/24/2018 8:43 AM RAILROAD CONSTRUCTION DIRECTOR Weight 69 kg (152 lb 3.2 oz) 01/24/2018 8:43 AM RAILROAD CONSTRUCTION DIRECTOR Height 165.1 cm (5' 5") 01/24/2018 8:43 AM RAILROAD CONSTRUCTION DIRECTOR Body Mass Index 25.33 in this encounter [...] Tonja Aguilera MD - 01/24/2018 9:00 AM RAILROAD CONSTRUCTION DIRECTOR Radiation Oncology Consultation Date: 01/24/2018 Jeanette Ovalle is a 52 y.o. female. [facility] The primary encounter diagnosis was Secondary malignant [...] on 07/28/2015 she underwent bilateral mastectomies at [facility] in [facility]. There was no evidence of disease reported and she continued on Herceptin. She received postmastectomy radiation therapy at that time, and treatment was delivered at [facility] in [facility]. Her radiation therapy was complete June 2016. A CT scan of the head was performed [facility] in December 2016 and the patient was found to have NURSE COLLEGE metastasis. She completed treatment to the whole brain 01/12/2017. A total dose of 3000 cGy was delivered in 10 fractions. Following treatment to the whole brain she started Xeloda and lapatinib. She ultimately transferred her care to Dr. Agustina Vines at [facility] and most recently she had a PET/CT [...] cancer, left (HCC) 01/03/2015 infiltrating lobular carcinoma ER/VT 0, HER-2 + and Ki-67=15%. [facility] in [place] Cancer of cervix (HCC) 1984 COPD (chronic obstructive pulmonary disease) (HCC) Genetic testing 04/2015 negative per patient.(done in [place], [place]) GERD (gastroesophageal reflux disease) History of [...] noncompliant with treatment. Dr Robert Shaffer in [place], [place]. Hx of radiation therapy 12/30/2016-01/12/2017 Whole brain treated with [address] Robert Shaffer in [place], [place] 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 Dr Rosario at [facility] in [place], [place] TUNNELED VENOUS PORT REMOVAL 07/2016 SECTION [...] due to her malignancy. She lives in [facility]. She is and lives alone. Her daughter recently moved to [facility] and her son does have some [...] of Onset Mental Illness Son lives in [place] with his father. Review of Systems Constitutional: [...] demonstrated that the tumor was ER 0 VT 0 HER-2 positive Ki-67 15%. ASSESSMENT: RECOMMENDATIONS: [...] of my time was spent in counseling ROAD CONSTRUCTION DIRECTOR in this encounter Plan of Treatment Not [...]
--- OUTSIDE RECORDS SUMMARY | 2018-03-31 22:25 | XMS REPORT | Encounter Summary ---
Author Author [facility] Organization [facility] Address Unknown Phone Unavailable Care Team Providers Care Senior Genetic Counselor Name Role Phone Porfirio Spence MD PCP Agustina Vines DO Unavailable Reason for Visit * Reason Comments Care Coordination patient called to discuss upcoming appt Encounter Details Care Team Description Date [place] [address] [address] [phone] Care Coordination (patient called to discuss upcoming appt ) 01/27/[address] [facility] - OP Exam [address] [address] Social History Date Tobacco Use [...] Liliana Monroy RN - 01/27/2018 10:45 AM PANEL COVERER Patient called to inquire what her upcoming [...] stated that her friend who is an VALUE STREAM LEADER can take good care of her and she will live with her. Informed patient that this RN would confer with Dr. Lopez and get back to her. No further questions at this time. L COVERER in this encounter Plan of Treatment Not on fileas of this encounter Visit Diagnoses Not on filein this encounter
--- OUTSIDE RECORDS SUMMARY | 2018-03-31 22:25 | XMS REPORT | Encounter Summary ---
Author Author [facility] Organization [facility] Address Unknown Phone Unavailable Care Team Providers Care Hematology Oncology Consultant Name Role Phone Porfirio Spence MD PCP Agustina Vines DO Unavailable Reason for Visit * Reason Comments Follow-up Phone Call Encounter Details Care Team Description Date [place] [address] [id number] Follow-up Phone Call 01/12/2018 Telephone [facility] - OP Exam [address] [address] Social History Date Tobacco Use [...] Gabe Alexis RN - 01/12/2018 11:15 AM TELEMARKETING REPRESENTATIVE Pt called to find out if her appointment with Dr Aguilera rad/onc can be moved up from 01/24/18. Checked with the rad/onc notary public and Dr Aguilera's nurse and there are no availability before 01/24/18. Pt notified and request to see her previous rad/onc Dr [facility]affer [facility] in [place]. Discussed pt request with Dr Lopez and agreed with request. Contact Dr Shaffer nurse Alethea. Request the records including recent MRI report fax to [phone] and she will discuss report with Dr Shaffer and call the pt to schedule follow up appointment. Records fax and pt notified. MARKETING REPRESENTATIVE in this encounter Plan of Treatment Not on fileas of this encounter Visit Diagnoses Not on filein this encounter
--- OUTSIDE RECORDS SUMMARY | 2018-03-31 22:25 | XMS REPORT | Encounter Summary ---
Author Author [facility] Organization [facility] Address Unknown Phone Unavailable Care Team Providers Care Genetics Teacher Name Role Phone Porfirio Spence MD PCP Agustina Vines DO Unavailable Reason for Visit * Reason Comments Care Coordination patient wanted plan of care Encounter Details Care Team Description Date [place] [address] [address] [phone] Care Coordination (patient wanted plan of care) 01/27/2018 Telephone [facility] - OP Exam [address] [address] Social History Date Tobacco Use [...] Liliana Monroy RN - 01/27/2018 1:16 PM DELINQUENT TAX COLLECTOR ASSISTANT F/u with patient about upcoming appt. Patient [...] schedulers. No further questions at this time. NQUENT TAX COLLECTOR ASSISTANT in this encounter Plan of Treatment Not on fileas of this encounter Visit Diagnoses Not on filein this encounter
[2018-03-31] MEDS ORDERED: GABA-488 (22:27)
[2018-03-31] MEDS ORDERED: KETOROLAC 30 MG/ML VIAL IVP ONE (22:30)
[2018-03-31] MEDS ORDERED: NS IV 1000 ML 1,000 ML IV SCH (22:30)
[2018-03-31] MEDS ORDERED: oxyCODONE/APAP 10/325MG (PERCOCET 10) TABLET PO ONE (22:30)
[2018-03-31] MEDS ORDERED: NS IV 500 ML 500 ML IV ONE (22:30)
[2018-03-31] MEDS ORDERED: ONDANSETRON 4 MG/2 ML (SDV) Z0FRAN IV PRN (22:30)
[2018-03-31] MEDS ORDERED: CEFEPIME INJECTION 1,000 MG in NS (IVPB) 50 ML IV ONE (22:30)
--- OUTSIDE RECORDS SUMMARY | 2018-03-31 22:36 | XMS REPORT | Continuity of Care Document ---
Author Author [facility] Organization [facility] Address Unknown Phone Unavailable Allergies Active Description Code Type Severity Reaction Onset Reported/Identified Relationship to Patient Clinical Status Yes No Known Drug Allergies [id number] Drug Allergy Unknown N/A 09/27/2014 Yes ciprofloxacin [id number] Drug Allergy Unknown N/A 03/22/2018 Medications There is no data. Problems Date [...] R06.02 SHORTNESS OF BREATH 11/08/2014 DARÍO BURROWS SANDBLASTING SUPERVISOR Ot 784.2 11/19/2014 DARÍO BURROWS SANDBLASTING SUPERVISOR Ot 784.2 11/21/2014 KAYLA MELENDEZ APRN Ot [...] Ot R50.9 FEVER, UNSPECIFIED 12/25/2014 KAYLA MELENDEZ SANDBLASTING SUPERVISOR Ot F17.210 NICOTINE DEPENDENCE, CIGARETTES, UNCOMPL 12/25/2014 KAYLA MELENDEZ SANDBLASTING SUPERVISOR Ot N64.9 DISORDER OF BREAST, UNSPECIFIED 01/09/2015 DARÍO BURROWS SANDBLASTING SUPERVISOR Ot N64.4 01/09/2015 DARÍO BURROWS SANDBLASTING SUPERVISOR Ot N64.4 01/10/2015 DARÍO BURROWS SANDBLASTING SUPERVISOR Ot N64.4 01/10/2015 DARÍO BURROWS SANDBLASTING SUPERVISOR Ot N63 01/10/2015 KITA BURROWSSTEPHEN You SANDBLASTING SUPERVISOR Ot R92.8 01/14/2015 BURROWSDARÍO HERBERT SANDBLASTING SUPERVISOR Ot N64.4 01/14/2015 BURROWSROB HERBERTFER Avelino SANDBLASTING SUPERVISOR Ot N63 01/14/2015 BURROWSKITA HERBERTSTEPHEN You SANDBLASTING SUPERVISOR Ot R92.8 01/17/2015 BURROWSKITA HERBERTSTEPHEN You SANDBLASTING SUPERVISOR Ot N64.4 01/17/2015 BURROWSROB HERBERTFER Avelino SANDBLASTING SUPERVISOR Ot N63 01/17/2015 ROB BURROWSFER Avelino SANDBLASTING SUPERVISOR Ot R92.8 01/17/2015 MARIA LUZ MURRAY, CAM Jara Ot C50.919 01/17/2015 MARIA LUZ MURRAY, CAM M Ot Z01.818 01/17/2015 GAMALIEL MURRAY, CEE Pryor Ot C50.411 01/17/2015 GAMALIEL MURRAY, CEE Pryor Ot E66.9 01/17/2015 GAMALIEL MURRAY, CEE Pryor Ot E78.5 01/17/2015 GAMALIEL MURRAY, CEE Pryor Ot F17.210 01/17/2015 GAMALIEL MURRAY, CEE Pryor Ot F31.9 01/17/2015 GAMALIEL MURRAY, CEE Pryor Ot I10 01/17/2015 GAMALIEL MURRAY, CEE Pryor Ot J44.9 01/17/2015 GAMALIEL MURRAY, CEE Pryro Ot Z17.0 01/17/2015 GAMALIEL MURRAY, CEE Pryor Ot Z68.34 01/17/2015 GAMALIEL MURRAY, CEE Pryor Ot Z79.899 01/17/2015 MARIA LUZ MURRAY, CAM Jara Ot C50.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 01/21/2015 MARIA LUZ MURRAY, CAM Jara Ot C50.919 01/21/2015 MARIA LUZ MURRAY, CAM Jara Ot Z01.818 01/22/2015 PEBBLES MURRAY, SHERRY You (DDU) Ot Z02.71 01/22/2015 DARÍO BURROWS SANDBLASTING SUPERVISOR Ot N64.4 01/22/2015 DARÍO BURROWS SANDBLASTING SUPERVISOR Ot N63 01/22/2015 DARÍO BURROWS SANDBLASTING SUPERVISOR Ot R92.8 01/22/2015 GAMALIEL MURRAY, CEE K [...] MD (DDU) Ot Z02.71 01/24/2015 DARÍO BURROWS SANDBLASTING SUPERVISOR Ot N64.4 01/24/2015 DARÍO BURROWS SANDBLASTING SUPERVISOR Ot N63 01/24/2015 DARÍO BURROWS SANDBLASTING SUPERVISOR Ot R92.8 01/24/2015 GAMALIEL MURRAY, CEE Konstantin Ot C50.411 01/24/2015 GAMALIEL MURRAY, CEE Konstantin Ot E66.9 01/24/2015 GAMALIEL MURRAY, CEE K Ot E78.5 01/24/2015 GAMALIEL MURRAY, CEE K Ot F17.210 01/24/2015 GAMALIEL MURRAY, CEE K Ot F31.9 01/24/2015 GAMALIEL MURRAY, CEE K Ot I10 01/24/2015 GAMALIEL MURRAY, CEE Pryor Ot J44.9 01/24/2015 GAMALIEL MURRAY, CEE Pryor Ot Z17.0 01/24/2015 GAMALIEL MURRYA, CEE Pryor Ot Z68.34 01/24/2015 GAMALIEL MURRAY, CEE Pryor Ot Z79.899 01/24/2015 GAMALIEL MURRAY, CEE Pryor Ot C50.411 01/24/2015 GAMALIEL MURRAY, CEE Pryor Ot Z51.81 01/24/2015 GAMALIEL MURRAY, CEE Pryor Ot Z79.899 01/24/2015 GAMALIEL MURRAY, CEE Pryor Ot R92.8 01/24/2015 KITTY SANDRA S SERGEANT MISSILE CREWMAN Ot C50.511 01/24/2015 KARIN TANGSINGH S SERGEANT MISSILE CREWMAN Ot E66.9 01/24/2015 KARIN TANGSINGH S SERGEANT MISSILE CREWMAN Ot E78.5 01/24/2015 KARIN TANGSINGH S SERGEANT MISSILE CREWMAN Ot F17.210 01/24/2015 SANDRA TANG S SERGEANT MISSILE CREWMAN Ot F31.9 01/24/2015 SANDRA TANG S SERGEANT MISSILE CREWMAN Ot I10 01/24/2015 KARIN TANGSINGH S SERGEANT MISSILE CREWMAN Ot J44.9 01/24/2015 KARIN TANGSINGH S SERGEANT MISSILE CREWMAN Ot Z17.1 01/24/2015 SANDRA TANG S SERGEANT MISSILE CREWMAN Ot Z68.35 01/24/2015 SANDRA TANG S SERGEANT MISSILE CREWMAN Ot Z79.899 01/24/2015 GAMALIEL MURRAY, CEE Pryor Ot R92.8 01/24/2015 SANDRA TANG S SERGEANT MISSILE CREWMAN Ot C50.511 01/24/2015 SANDRA TANG S SERGEANT MISSILE CREWMAN Ot E66.9 01/24/2015 SADNRA TANG S SERGEANT MISSILE CREWMAN Ot E78.5 01/24/2015 SANDRA TANG S SERGEANT MISSILE CREWMAN Ot F17.210 01/24/2015 KARIN TANGSINGH S SERGEANT MISSILE CREWMAN Ot F31.9 01/24/2015 SANDRA TANG S SERGEANT MISSILE CREWMAN Ot I10 01/24/2015 SANDRA TANG S SERGEANT MISSILE CREWMAN Ot J44.9 01/24/2015 SANDRA TANG S SERGEANT MISSILE CREWMAN Ot Z17.1 01/24/2015 SANDRA TANG S SERGEANT MISSILE CREWMAN Ot Z68.35 01/24/2015 SANDRA TANG S SERGEANT MISSILE CREWMAN Ot Z79.899 01/24/2015 GAMALIEL MURRAY, CEE Pryor [...] CEE Pryor Ot Z79.899 01/24/2015 DARÍO BURROWS SANDBLASTING SUPERVISOR Ot N63 01/24/2015 DARÍO BURROWS SANDBLASTING SUPERVISOR Ot R92.8 01/24/2015 DARÍO BURROWS SANDBLASTING SUPERVISOR Ot N64.4 01/24/2015 SHERRY ROGEL MD (DDU) Ot Z02.71 01/24/2015 DARÍO BURROWS SANDBLASTING SUPERVISOR Ot N64.4 01/24/2015 DARÍO BURROWS SANDBLASTING SUPERVISOR Ot N63 01/24/2015 DARÍO BURROWS SANDBLASTING SUPERVISOR Ot R92.8 01/24/2015 GAMALIEL MURRAY, CEE Pryor [...] Pryor Ot Z79.899 01/24/2015 GAMALIEL MURRAY, CEE rPyor Ot C50.411 01/24/2015 GAMALIEL MURRAY, CEE Pryor Ot Z51.81 01/24/2015 GAMALIEL MURRAY, CEE Pryor Ot Z79.899 01/24/2015 GAMALIEL MURRAY, CEE K Ot R92.8 01/24/2015 SANDRA TANG Ot C50.511 01/24/2015 SANDRA TANG SERGEANT MISSILE CREWMAN Ot E66.9 01/24/2015 SANDRA TANG SERGEANT MISSILE CREWMAN Ot E78.5 01/24/2015 SANDRA TANG SERGEANT MISSILE CREWMAN Ot F17.210 01/24/2015 SANDRA TANG SERGEANT MISSILE CREWMAN Ot F31.9 01/24/2015 SANDRA TANG SERGEANT MISSILE CREWMAN Ot I10 01/24/2015 SANDRA TANG S SERGEANT MISSILE CREWMAN Ot J44.9 01/24/2015 SANDRA TANG S SERGEANT MISSILE CREWMAN Ot Z17.1 01/24/2015 SANDRA TANG SERGEANT MISSILE CREWMAN Ot Z68.35 01/24/2015 SANDRA TANG SERGEANT MISSILE CREWMAN Ot Z79.899 02/13/2015 GAMALIEL MURRAY, CEE K Ot C50.511 02/13/2015 GAMALIEL MURRAY, CEE K Ot Z51.81 02/13/2015 GAMALIEL MURRAY, CEE K Ot Z79.899 02/13/2015 GAMALIEL MURRAY, CEE K Ot C50.511 02/13/2015 GAMALIEL MURRAY, CEE K Ot Z51.81 02/13/2015 GAMALIEL MURRAY, CEE K Ot Z79.899 02/17/2015 PEBBLES MURRAY, SHERRY You (DDU) Ot Z02.71 02/17/2015 DARÍO BURROWS SANDBLASTING SUPERVISOR Ot N64.4 02/17/2015 DARÍO BURROWS SANDBLASTING SUPERVISOR Ot N63 02/17/2015 DARÍO BURROWS SANDBLASTING SUPERVISOR Ot R92.8 02/17/2015 GAMALIEL MURRAY, CEE K Ot C50.411 [...] GAMALIEL MURRAY, CEE K Ot R92.8 02/17/2015 KITTY SANDRA S SERGEANT MISSILE CREWMAN Ot C50.511 02/17/2015 TANG, HILAH S SERGEANT MISSILE CREWMAN Ot E66.9 02/17/2015 TANG, HILAH S SERGEANT MISSILE CREWMAN Ot E78.5 02/17/2015 TANG, HILAH S SERGEANT MISSILE CREWMAN Ot F17.210 02/17/2015 TANG, HILAH S SERGEANT MISSILE CREWMAN Ot F31.9 02/17/2015 TANG, HILAH S SERGEANT MISSILE CREWMAN Ot I10 02/17/2015 TANG, HILAH S SERGEANT MISSILE CREWMAN Ot J44.9 02/17/2015 TANG HILAH S SERGEANT MISSILE CREWMAN Ot Z17.1 02/17/2015 KITTY KARINAH S SERGEANT MISSILE CREWMAN Ot Z68.35 02/17/2015 KITTY HILAH S SERGEANT MISSILE CREWMAN Ot Z79.899 02/17/2015 GAMALIEL MURRAY, CEE Pryor Ot C50.511 02/17/2015 GAMALIEL MURRAY, CEE K Ot Z51.81 02/17/2015 GAMALIEL MURRAY, CEE K Ot Z79.899 02/17/2015 GAMALIEL MURRAY, ECE Pryor Ot C50.411 02/17/2015 GAMALIEL MURRAY, CEE [...] You (DDU) Ot Z02.71 03/17/2015 DARÍO BURROWS APRN Ot N64.4 03/17/2015 ROB BURROWSFER A SANDBLASTING SUPERVISOR Ot N63 03/17/2015 STORMY DARÍO You SANDBLASTING SUPERVISOR Ot R92.8 03/17/2015 GAMALIEL MURRAY, CEE Pryor Ot C50.411 03/17/2015 GAMALIEL MURRAY, CEE K Ot E66.9 03/17/2015 GAMALIEL MURRAY, CEE K Ot E78.5 03/17/2015 GAMALIEL MURRAY, CEE K Ot F17.210 03/17/2015 GAMALIEL MURRAY, CEE K Ot F31.9 03/17/2015 GAMALIEL MURRAY, CEE K Ot I10 03/17/2015 GAMALIEL MURRAY, CEE K Ot J44.9 03/17/2015 GAMALIEL MURRAY, CEE Pryor Ot Z17.0 03/17/2015 GAMALIEL MURRAY, CEE K Ot Z68.34 03/17/2015 GAMALIEL MURRAY, CEE Pryor Ot Z79.899 03/17/2015 GAMALIEL MURRAY, CEE Pryor Ot C50.411 03/17/2015 GAMALIEL MURRAY, CEE Konstantin Ot Z51.81 03/17/2015 GAMALIEL MURRAY, CEE Konstantin Ot Z79.899 03/17/2015 GAMALIEL MURRAY, CEE Pryor Ot C50.511 03/17/2015 GAMALILE MURRAY, CEE Pryor Ot R92.8 03/17/2015 SANDRA TANG SERGEANT MISSILE CREWMAN Ot C50.511 03/17/2015 SANDRA TANG SERGEANT MISSILE CREWMAN Ot E66.9 03/17/2015 SANDRA TANG SERGEANT MISSILE CREWMAN Ot E78.5 03/17/2015 SANDRA TANG SERGEANT MISSILE CREWMAN Ot F17.210 03/17/2015 SANDRA TANG SERGEANT MISSILE CREWMAN Ot F31.9 03/17/2015 SANDRA TANG SERGEANT MISSILE CREWMAN Ot I10 03/17/2015 SANDRA TANG S SERGEANT MISSILE CREWMAN Ot J44.9 03/17/2015 SANDRA TANG S SERGEANT MISSILE CREWMAN Ot Z17.1 03/17/2015 SANDRA TANG SERGEANT MISSILE CREWMAN Ot Z68.35 03/17/2015 SANDRA TANG S SERGEANT MISSILE CREWMAN Ot Z79.899 03/17/2015 GAMALIEL MURRAY, CEE K Ot C50.511 03/17/2015 GAMALIEL MURRAY, CEE Konstantin Ot Z51.81 03/17/2015 GAMALIEL MURRAY, CEE Pryor Ot Z79.899 03/17/2015 GAMALIEL MURRAY, CEE K Ot C50.511 03/19/2015 MARIA LUZ MURRAY, CAM Jara Ot C50.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 03/19/2015 MARIA LUZ MURRAY, CAM Jara Ot Z11.2 ENCOUNTER FOR SCREENING FOR OTHER BACTER 03/20/2015 GAMALIEL MURRAY, CEE K Ot C50.511 03/20/2015 PEBBLES MURRAY, SHERRY You (DDU) Ot Z02.71 03/20/2015 DARÍO BURROWS SANDBLASTING SUPERVISOR Ot N64.4 03/20/2015 DARÍO BURROWS SANDBLASTING SUPERVISOR Ot N63 03/20/2015 DARÍO BURROWS SANDBLASTING SUPERVISOR Ot R92.8 03/20/2015 GAMALIEL MURRAY, CEE K [...] CEE K Ot R92.8 03/20/2015 SANDRA TANG SERGEANT MISSILE CREWMAN Ot C50.511 03/20/2015 SANDRA TANG SERGEANT MISSILE CREWMAN Ot E66.9 03/20/2015 SANDRA TANG SERGEANT MISSILE CREWMAN Ot E78.5 03/20/2015 SANDRA TANG SERGEANT MISSILE CREWMAN Ot F17.210 03/20/2015 SANDRA TANG SERGEANT MISSILE CREWMAN Ot F31.9 03/20/2015 SANDRA TANG SERGEANT MISSILE CREWMAN Ot I10 03/20/2015 SANDRA TANG SERGEANT MISSILE CREWMAN Ot J44.9 03/20/2015 SANDRA TANG SERGEANT MISSILE CREWMAN Ot Z17.1 03/20/2015 KITTY SANDRA S SERGEANT MISSILE CREWMAN Ot Z68.35 03/20/2015 KITTY SANDRA S SERGEANT MISSILE CREWMAN Ot Z79.899 03/20/2015 GAMALIEL MURRAY, CEE K Ot C50.511 03/20/2015 GAMALIEL MURRAY, CEE K Ot Z51.81 03/20/2015 GAMALIEL MURRAY, CEE K Ot Z79.899 03/20/2015 GAMALIEL MURRAY, ECE Pryor Ot C50.511 03/20/2015 MARIA LUZ MURRAY, CAM M Ot C50.911 03/20/2015 MARIA LUZ MURRAY, CAM M Ot Z01.818 03/20/2015 GAMALIEL MURRAY, CEE K Ot C50.511 03/20/2015 KARIN TANGSINGH S SERGEANT MISSILE CREWMAN Ot C50.511 03/20/2015 KARIN TANGSINGH S SERGEANT MISSILE CREWMAN Ot E66.9 03/20/2015 SANDRA TANG S SERGEANT MISSILE CREWMAN Ot E78.5 03/20/2015 KARIN TANGSINGH S SERGEANT MISSILE CREWMAN Ot F17.210 03/20/2015 KARIN TANGSINGH S SERGEANT MISSILE CREWMAN Ot F31.9 03/20/2015 KARIN TANGSINGH S SERGEANT MISSILE CREWMAN Ot I10 03/20/2015 SANDRA TANG S SERGEANT MISSILE CREWMAN Ot J44.9 03/20/2015 KARIN TANGSINGH S SERGEANT MISSILE CREWMAN Ot Z17.1 03/20/2015 KITTY SANDRA S SERGEANT MISSILE CREWMAN Ot Z68.35 03/20/2015 KARIN TANGSINGH S SERGEANT MISSILE CREWMAN Ot Z79.899 03/20/2015 GAMALIEL MURRAY, CEE Pryor Ot C50.511 03/20/2015 GAMALIEL MURRAY, CEE Konstantin Ot Z51.81 03/20/2015 GAMALIEL MURRAY, CEE K Ot Z79.899 03/20/2015 KARIN TANGSINGH S SERGEANT MISSILE CREWMAN Ot C50.511 03/20/2015 SANDRA TANG S SERGEANT MISSILE CREWMAN Ot E66.9 03/20/2015 SANDRA TANG S SERGEANT MISSILE CREWMAN Ot E78.5 03/20/2015 SANDRA TANG S SERGEANT MISSILE CREWMAN Ot F17.210 03/20/2015 SANDRA TANG S SERGEANT MISSILE CREWMAN Ot F31.9 03/20/2015 SANDRA TANG S SERGEANT MISSILE CREWMAN Ot I10 03/20/2015 SANDRA TANG S SERGEANT MISSILE CREWMAN Ot J44.9 03/20/2015 KITTYSANDRA SERGEANT MISSILE CREWMAN Ot Z17.1 03/20/2015 KITTYSANDRA SERGEANT MISSILE CREWMAN Ot Z68.35 03/20/2015 KITTYSANDRA SERGEANT MISSILE CREWMAN Ot Z79.899 03/20/2015 GAMALIEL MURRAY, CEE Pryor Ot R92.8 03/20/2015 GAMALIEL MURRAY, CEE Konstantin Ot C50.411 03/20/2015 GAMALIEL MURRAY, CEE Pryor Ot E66.9 03/20/2015 GAMALIEL MURRAY, CEE Pryor Ot E78.5 03/20/2015 GAMALIEL MURRAY, CEE Konstantin Ot F17.210 03/20/2015 GAMALIEL MURRAY, CEE Pryor Ot F31.9 03/20/2015 GAMALIEL MURRAY, CEE Pryor Ot I10 03/20/2015 GAMALIEL MURRAY, CEE Pryor Ot J44.9 03/20/2015 GAMALIEL MURRAY, CEE Pryor Ot Z17.0 03/20/2015 GAMALIEL MURRAY, CEE Pryor Ot Z68.34 03/20/2015 GAMALIEL MURRAY, CEE Pryor Ot Z79.899 03/20/2015 GAMALIEL MURRAY, CEE Pryor Ot C50.411 03/20/2015 GAMALIEL MURRAY, CEE Konstantin Ot E66.9 03/20/2015 GAMALIEL MURRAY, CEE Konstantin Ot E78.5 03/20/2015 GAMALIEL MURRAY, CEE Pryor Ot F17.210 03/20/2015 GAMALIEL MURRAY, CEE Pryor Ot F31.9 03/20/2015 GAMALIEL MURRAY, CEE Pryor Ot I10 03/20/2015 GAMALIEL MURRAY, CEE Pryor Ot J44.9 03/20/2015 GAMALIEL MURRAY, CEE Konstantin Ot Z17.0 03/20/2015 GAMALIEL MURRAY, CEE Konstantin Ot Z68.34 03/20/2015 GAMALIEL MURRAY, CEE Konstantin Ot Z79.899 03/20/2015 DARÍO BURROWS SANDBLASTING SUPERVISOR Ot N63 03/20/2015 DARÍO BURROWS SANDBLASTING SUPERVISOR Ot R92.8 03/20/2015 GAMALIEL MURRAY, CEE Pryor [...] Pryor Ot Z79.899 03/20/2015 BURROWS, DARÍO You SANDBLASTING SUPERVISOR Ot N63 03/20/2015 BURROWS, DARÍO A SANDBLASTING SUPERVISOR Ot R92.8 03/20/2015 BURROWS, DARÍO A SANDBLASTING SUPERVISOR Ot N64.4 03/20/2015 BURROWS, DARÍO A SANDBLASTING SUPERVISOR Ot 784.2 03/25/2015 GAMALIEL MURRAY, CEE Pryor Ot C50.511 03/25/2015 GAMALIEL MURRAY, CEE Pryor Ot C50.511 03/25/2015 GAMALIEL MURRAY, CEE Pryor Ot Z51.81 03/25/2015 GAMALIEL MURRAY, CEE Konstantin Ot Z79.899 03/25/2015 GAMALIEL MURRAY, CEE Pryor Ot C50.511 03/25/2015 GAMALIEL MURRAY, CEE Konstantin Ot C50.411 03/25/2015 GAMALIEL MURRAY, CEE Konstantin Ot Z51.81 03/25/2015 GAMALIEL MURRAY, CEE Pryor Ot Z79.899 03/25/2015 BURROWS, DARÍO A SANDBLASTING SUPERVISOR Ot N63 03/25/2015 BURROWS, DARÍO A SANDBLASTING SUPERVISOR Ot R92.8 03/25/2015 BURROWS, DARÍO A SANDBLASTING SUPERVISOR Ot 784.2 03/31/2015 BURROWS, DARÍO A SANDBLASTING SUPERVISOR Ot 784.2 03/31/2015 PEBBLES MURRAY, SHERRY You (U) Ot Z02.71 03/31/2015 BURROWS, DARÍO A SANDBLASTING SUPERVISOR Ot N64.4 03/31/2015 BURROWS, DARÍO A SANDBLASTING SUPERVISOR Ot N63 03/31/2015 BURROWS, DARÍO A SANDBLASTING SUPERVISOR Ot R92.8 03/31/2015 GAMALIEL MURRAY, CEE Pryor Ot C50.411 03/31/2015 GAMALIEL MURRAY, CEE Pryor Ot E66.9 03/31/2015 GAMALIEL MURRAY, CEE Pryor Ot E78.5 03/31/2015 GAMALIEL MURRAY, CEE Pryor Ot F17.210 03/31/2015 GAMALIEL MURRAY, CEE Konstantin Ot F31.9 03/31/2015 GAMALIEL MURRAY, CEE K Ot I10 03/31/2015 GAMALIEL MURRAY, CEE Pryor Ot J44.9 03/31/2015 GAMALIEL MURRAY, CEE Pryor Ot Z17.0 03/31/2015 GAMALIEL MURRAY, CEE K Ot Z68.34 03/31/2015 GAMALIEL MURRAY, CEE Pryor Ot Z79.899 03/31/2015 GAMALIEL MURRAY, CEE Pryor Ot C50.411 03/31/2015 GAMALIEL MURRAY, CEE Pryor Ot Z51.81 03/31/2015 GAMALIEL MURRAY, CEE Pryor Ot Z79.899 03/31/2015 GAMALIEL MURRAY, CEE Pryor Ot C50.511 03/31/2015 GAMALIEL MURRAY, CEE Pryor Ot R92.8 03/31/2015 KITTY HILSINGH S SERGEANT MISSILE CREWMAN Ot C50.511 03/31/2015 KARIN TANGSINGH S SERGEANT MISSILE CREWMAN Ot E66.9 03/31/2015 KITTY SANDRA S SERGEANT MISSILE CREWMAN Ot E78.5 03/31/2015 KARIN TANGSINGH S SERGEANT MISSILE CREWMAN Ot F17.210 03/31/2015 KARIN TANGSINGH S SERGEANT MISSILE CREWMAN Ot F31.9 03/31/2015 KITTY SANDRA S SERGEANT MISSILE CREWMAN Ot I10 03/31/2015 KITTY SANDRA S SERGEANT MISSILE CREWMAN Ot J44.9 03/31/2015 KITTY SANDRA S SERGEANT MISSILE CREWMAN Ot Z17.1 03/31/2015 KITTY SANDRA S SERGEANT MISSILE CREWMAN Ot Z68.35 03/31/2015 KITTY SANDRA S SERGEANT MISSILE CREWMAN Ot Z79.899 03/31/2015 GAMALIEL MURRAY, CEE Pryor Ot C50.511 03/31/2015 GAMALIEL MURRAY, CEE Pryor Ot Z51.81 03/31/2015 GAMALIEL MURRAY, CEE Pryor Ot Z79.899 03/31/2015 GAMALIEL MURRAY, CEE Pryor Ot C50.511 03/31/2015 MARIA LUZ MURRAY, CAM Jara Ot C50.911 03/31/2015 MARIA LUZ MURRAY, CAM Jara Ot Z01.818 04/04/2015 DARÍO BURROWS SANDBLASTING SUPERVISOR Ot 784.2 04/04/2015 DARÍO BURROWS SANDBLASTING SUPERVISOR Ot N64.4 04/04/2015 DARÍO BURROWS SANDBLASTING SUPERVISOR Ot N63 04/04/2015 DARÍO BURROWS SANDBLASTING SUPERVISOR Ot R92.8 04/04/2015 GAMALIEL MURRAY, CEE K Ot C50.511 04/04/2015 GAMALIEL MURRAY, CEE K Ot R92.8 04/04/2015 TANGSANDRA Lazar SERGEANT MISSILE CREWMAN Ot C50.511 04/04/2015 SANDRA TANG SERGEANT MISSILE CREWMAN Ot E66.9 04/04/2015 SANDRA TANG S SERGEANT MISSILE CREWMAN Ot E78.5 04/04/2015 SANDRA TANG S SERGEANT MISSILE CREWMAN Ot F17.210 04/04/2015 SANDRA TANG S SERGEANT MISSILE CREWMAN Ot F31.9 04/04/2015 SANDRA TANG S SERGEANT MISSILE CREWMAN Ot I10 04/04/2015 SANDRA TANG S SERGEANT MISSILE CREWMAN Ot J44.9 04/04/2015 TANGSANDRA Lazar S SERGEANT MISSILE CREWMAN Ot Z17.1 04/04/2015 TANGSANDRA Lazar S SERGEANT MISSILE CREWMAN Ot Z68.35 04/04/2015 KITTYSANDRA SERGEANT MISSILE CREWMAN Ot Z79.899 04/04/2015 GAMALIEL MURRAY, CEE Konstantin Ot C50.511 04/04/2015 GAMALIEL MURRAY, CEE K Ot Z51.81 04/04/2015 GAMALIEL MURRAY, CEE K Ot Z79.899 04/04/2015 GAMALIEL MURRAY, CEE Pryor Ot C50.511 04/07/2015 DARÍO BURROWS SANDBLASTING SUPERVISOR Ot 784.2 04/07/2015 PEBBLES MURRAY, SHERRY You (DDU) Ot Z02.71 04/07/2015 DARÍO BURROWS SANDBLASTING SUPERVISOR Ot N64.4 04/07/2015 DARÍO BURROWS SANDBLASTING SUPERVISOR Ot N63 04/07/2015 DARÍO BURROWS SANDBLASTING SUPERVISOR Ot R92.8 04/07/2015 GAMALIEL MURRAY, CEE Pryor Ot C50.411 04/07/2015 GAMALIEL MURRAY, CEE Konstantin Ot E66.9 04/07/2015 GAMALIEL MURRAY, CEE Konstantin Ot E78.5 04/07/2015 GAMALIEL MURRAY, CEE Konstantin Ot F17.210 04/07/2015 GAMALIEL MURRAY, CEE Konstantin Ot F31.9 04/07/2015 GAMALIEL MURRAY, CEE K Ot I10 04/07/2015 GAMALIEL MURRAY, CEE Konstantin Ot J44.9 04/07/2015 GAMALIEL MURRAY, CEE Konstantin Ot Z17.0 04/07/2015 GAMALIEL MURRAY, CEE K Ot Z68.34 04/07/2015 GAMALIEL MURRAY, CEE Pryor Ot Z79.899 04/07/2015 GAMALIEL MURRAY, CEE Pryor Ot C50.411 04/07/2015 GAMAILEL MURRAY, CEE Pryor Ot Z51.81 04/07/2015 GAMALIEL MURRAY, CEE Pryor Ot Z79.899 04/07/2015 GAMALIEL MURRAY, CEE Pryor Ot C50.511 04/07/2015 GAMALIEL MURRAY, CEE Pryor Ot R92.8 04/07/2015 KARIN TANGSINGH S SERGEANT MISSILE CREWMAN Ot C50.511 04/07/2015 KARIN TANGSINGH S SERGEANT MISSILE CREWMAN Ot E66.9 04/07/2015 KARIN TANGSINGH S SERGEANT MISSILE CREWMAN Ot E78.5 04/07/2015 KITTY HILAH S SERGEANT MISSILE CREWMAN Ot F17.210 04/07/2015 KITTY SANDRA S SERGEANT MISSILE CREWMAN Ot F31.9 04/07/2015 KITTY SANDRA S SERGEANT MISSILE CREWMAN Ot I10 04/07/2015 KITTY SANDRA S SERGEANT MISSILE CREWMAN Ot J44.9 04/07/2015 KITTY SANDRA S SERGEANT MISSILE CREWMAN Ot Z17.1 04/07/2015 KITTY SANDRA S SERGEANT MISSILE CREWMAN Ot Z68.35 04/07/2015 KARIN TANGSINGH S SERGEANT MISSILE CREWMAN Ot Z79.899 04/07/2015 GAMALIEL MURRAY, CEE Pryor [...] PULMONARY DISEASE, U 04/14/2015 GAMALIEL MURRAY, CEE Konstantin Ot Z17.0 ESTROGEN RECEPTOR POSITIVE STATUS [ER+] [...] Pryor Ot J44.9 04/21/2015 GAMALIEL MURRAY, CEE Konstantin Ot Z17.0 04/21/2015 GAMALIEL MURRAY, CEE Pryor [...] CEE Pryor Ot Z79.899 04/29/2015 SANDRA TANG SERGEANT MISSILE CREWMAN Ot C50.511 04/29/2015 SANDRA TANG SERGEANT MISSILE CREWMAN Ot Z79.899 04/30/2015 GAMALIEL MURRAY, CEE Pyror Ot C50.411 04/30/2015 GAMALIEL MURRAY, CEE Pryor [...] Pryor Ot Z79.899 05/15/2015 GAMALIEL MURRAY, CEE Konstantin Ot C50.511 05/15/2015 GAMALIEL MURRAY, CEE Pryor Ot Z51.81 06/17/2015 DARÍO BURROWS SANDBLASTING SUPERVISOR Ot 784.2 SWELLING IN HEAD NECK 06/17/2015 SHERRY ROGEL MD (DDU) Ot Z02.71 ENCOUNTER FOR DISABILITY DETERMINATION 06/17/2015 DARÍO BURROWS SANDBLASTING SUPERVISOR Ot N64.4 MASTODYNIA 06/17/2015 DARÍO BURROWS SANDBLASTING SUPERVISOR Ot N63 UNSPECIFIED LUMP IN BREAST 06/17/2015 [...] INCONCLUSIVE FINDINGS ON DX 06/17/2015 SANDRA TANG SERGEANT MISSILE CREWMAN Ot C50.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 06/17/2015 SANDRA TANG S SERGEANT MISSILE CREWMAN Ot E66.9 OBESITY, UNSPECIFIED 06/17/2015 SANDRA TANG S SERGEANT MISSILE CREWMAN Ot E78.5 HYPERLIPIDEMIA, UNSPECIFIED 06/17/2015 SANDRA TANG S SERGEANT MISSILE CREWMAN Ot F17.210 NICOTINE DEPENDENCE, CIGARETTES, UNCOMPL 06/17/2015 SANDRA TANG S SERGEANT MISSILE CREWMAN Ot F31.9 BIPOLAR DISORDER, UNSPECIFIED 06/17/2015 SANDRA TANG S SERGEANT MISSILE CREWMAN Ot I10 ESSENTIAL (PRIMARY) HYPERTENSION 06/17/2015 SANDRA TANG S SERGEANT MISSILE CREWMAN Ot J44.9 CHRONIC OBSTRUCTIVE PULMONARY DISEASE, U 06/17/2015 SANDRA TANG S SERGEANT MISSILE CREWMAN Ot Z17.1 ESTROGEN RECEPTOR NEGATIVE STATUS [ER-] 06/17/2015 SANDRA TANG S SERGEANT MISSILE CREWMAN Ot Z68.35 BODY MASS INDEX (BMI) 35.0-35.9, ADULT 06/17/2015 SANDRA TANG S SERGEANT MISSILE CREWMAN Ot Z79.899 OTHER [facility]DC (CURRENT) DRUG THERAPY 06/17/2015 CEE ALSTON MD Ot 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 06/17/2015 CEE ALSTON MD Ot Z51.81 ENCOUNTER FOR THERAPEUTIC DRUG LEVEL MON 06/17/2015 CEE ALSTON MD Ot Z79.899 OTHER 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 (CURRENT) DRUG THERAPY 06/17/2015 CEE ALSTON [...] 06/17/2015 CEE ALSTON MD Ot Z79.899 OTHER 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 (CURRENT) DRUG THERAPY 06/17/2015 SANDRA TANG Ot 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 06/17/2015 SANDRA TANGP Ot Z79.899 OTHER 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 (CURRENT) DRUG THERAPY 06/17/2015 CEE ALSTON MD Ot C50.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 06/17/2015 CEE ALSTNO MD Ot E66.9 OBESITY, UNSPECIFIED 06/17/2015 CEE ALSTON MD Ot E78.5 HYPERLIPIDEMIA, UNSPECIFIED 06/17/2015 CEE ALSTON MD Ot F17.210 NICOTINE DEPENDENCE, CIGARETTES, UNCOMPL 06/17/2015 CEE ALSTON MD, Ot F31.9 BIPOLAR DISORDER, UNSPECIFIED 06/17/2015 CEE [...] Ot E66.9 OBESITY, UNSPECIFIED 07/30/2015 CEE ALSTON MD Ot E78.5 HYPERLIPIDEMIA, UNSPECIFIED 07/30/2015 CEE ALSTON MD Ot F17.210 NICOTINE DEPENDENCE, CIGARETTES, UNCOMPL 07/30/2015 CEE ALSTON MD Ot F31.9 BIPOLAR DISORDER, UNSPECIFIED 07/30/2015 CEE ALSTON MD Ot I10 ESSENTIAL (PRIMARY) HYPERTENSION 07/30/2015 CEE ALSTON MD Ot J44.9 CHRONIC OBSTRUCTIVE PULMONARY DISEASE, U 07/30/2015 CEE ALSTON MD Ot Z17.0 ESTROGEN RECEPTOR POSITIVE STATUS [ER+] 07/30/2015 CEE ALSTON MD Ot Z51.11 ENCOUNTER FOR ANTINEOPLASTIC CHEMOTHERAP 07/30/2015 CEE ALSTON MD Ot Z68.34 BODY MASS INDEX (BMI) 34.0-34.9, ADULT 07/30/2015 CEE ALSTON MD Ot Z79.899 OTHER [facility] (CURRENT) DRUG THERAPY 07/31/2015 CEE ALSTON MD Ot C50.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 07/31/2015 CEE ALSTON MD, Ot E66.9 OBESITY, UNSPECIFIED 07/31/2015 CEE ALSTON MD Ot E78.5 HYPERLIPIDEMIA, UNSPECIFIED 07/31/2015 CEE ALSTON MD Ot F17.210 NICOTINE DEPENDENCE, CIGARETTES, UNCOMPL 07/31/2015 CEE ALSTON MD Ot F31.9 BIPOLAR DISORDER, UNSPECIFIED 07/31/2015 CEE ALSTON MD Ot I10 ESSENTIAL (PRIMARY) HYPERTENSION 07/31/2015 CEE ALSTON MD Ot J44.9 CHRONIC OBSTRUCTIVE PULMONARY DISEASE, U 07/31/2015 CEE ALSTON MD, Ot Z17.0 ESTROGEN RECEPTOR POSITIVE STATUS [ER+] 07/31/2015 CEE ALSTON MD Ot Z51.11 ENCOUNTER FOR ANTINEOPLASTIC CHEMOTHERAP 07/31/2015 CEE ALSTON MD, Ot Z68.34 BODY MASS INDEX (BMI) 34.0-34.9, ADULT 07/31/2015 CEE ALSTON MD Ot Z79.899 OTHER 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 (CURRENT) DRUG THERAPY 08/05/2015 CEE ALSTON MD Ot C50.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 08/05/2015 CEE ALSTON MD Ot E66.9 OBESITY, UNSPECIFIED 08/05/2015 CEE ALSTON MD Ot E78.5 HYPERLIPIDEMIA, UNSPECIFIED 08/05/2015 CEE ALSTON MD Ot F17.210 NICOTINE DEPENDENCE, CIGARETTES, UNCOMPL 08/05/2015 CEE ALSTON MD Ot F31.9 BIPOLAR DISORDER, UNSPECIFIED 08/05/2015 CEE ALSTON MD Ot I10 ESSENTIAL (PRIMARY) HYPERTENSION 08/05/2015 CEE ALSTON MD, Ot J44.9 CHRONIC OBSTRUCTIVE PULMONARY DISEASE, U 08/05/2015 CEE ALSTON MD Ot Z17.0 ESTROGEN RECEPTOR POSITIVE STATUS [ER+] 08/05/2015 CEE ALSTON MD Ot Z51.11 ENCOUNTER FOR ANTINEOPLASTIC CHEMOTHERAP 08/05/2015 CEE ALSTON MD Ot Z68.34 BODY MASS INDEX (BMI) 34.0-34.9, ADULT 08/05/2015 CEE ALSTON MD, Ot Z79.899 OTHER 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 (CURRENT) DRUG THERAPY 01/01/2016 CEE ALSTON MD, Ot C50.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 01/01/2016 CEE ALSTON MD, Ot E66.9 OBESITY, UNSPECIFIED 01/01/2016 CEE ALSTON MD Ot E78.5 HYPERLIPIDEMIA, UNSPECIFIED 01/01/2016 CEE ALSTON MD, Ot F17.210 NICOTINE DEPENDENCE, CIGARETTES, UNCOMPL 01/01/2016 CEE ALSTON MD, Ot F31.9 BIPOLAR DISORDER, UNSPECIFIED 01/01/2016 CEE ALSTON MD Ot I10 ESSENTIAL (PRIMARY) HYPERTENSION 01/01/2016 CEE ALSTON MD, Ot J44.9 CHRONIC OBSTRUCTIVE PULMONARY DISEASE, U 01/01/2016 CEE ALSTON MD Ot Z17.0 ESTROGEN RECEPTOR POSITIVE STATUS [ER+] 01/01/2016 CEE ALSTON MD Ot Z51.11 ENCOUNTER FOR ANTINEOPLASTIC CHEMOTHERAP 01/01/2016 CEE ALSTON MD, Ot Z68.34 BODY MASS INDEX (BMI) 34.0-34.9, ADULT 01/01/2016 CEE ALSTON MD, Ot Z79.899 OTHER 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 (CURRENT) DRUG THERAPY 02/16/2016 DARÍO BURROWS SANDBLASTING SUPERVISOR Ot 784.2 SWELLING IN HEAD NECK 02/16/2016 SHERRY ROGEL MD ([facility]) Ot Z02.71 ENCOUNTER FOR DISABILITY DETERMINATION 02/16/2016 DARÍO BURROWS SANDBLASTING SUPERVISOR Ot N64.4 MASTODYNIA 02/16/2016 DARÍO BURROWS SANDBLASTING SUPERVISOR Ot N63 UNSPECIFIED LUMP IN BREAST 02/16/2016 DARÍO BURROWS SANDBLASTING SUPERVISOR Ot R92.8 OTH ABN AND INCONCLUSIVE FINDINGS ON DX 02/16/2016 CEE ALSTON MD Ot C50.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 02/16/2016 CEE ALSTON MD Ot Z51.81 ENCOUNTER FOR THERAPEUTIC DRUG LEVEL MON 02/16/2016 CEE ALSTON MD Ot Z79.899 OTHER FDC (CURRENT) DRUG THERAPY 02/16/2016 CEE ALSTON MD Ot C50.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 02/16/2016 CEE ALSTON MD Ot R92.8 OTH ABN AND INCONCLUSIVE FINDINGS ON DX 02/16/2016 SANDRA TANG SERGEANT MISSILE CREWMAN Ot C50.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 02/16/2016 SANDRA TANG SERGEANT MISSILE CREWMAN Ot E66.9 OBESITY, UNSPECIFIED 02/16/2016 SANDRA TANG SERGEANT MISSILE CREWMAN Ot E78.5 HYPERLIPIDEMIA, UNSPECIFIED 02/16/2016 SANDRA TANG S SERGEANT MISSILE CREWMAN Ot F17.210 NICOTINE DEPENDENCE, CIGARETTES, UNCOMPL 02/16/2016 SANDRA TANG SERGEANT MISSILE CREWMAN Ot F31.9 BIPOLAR DISORDER, UNSPECIFIED 02/16/2016 SANDRA TANG SERGEANT MISSILE CREWMAN Ot I10 ESSENTIAL (PRIMARY) HYPERTENSION 02/16/2016 SANDRA TANG SERGEANT MISSILE CREWMAN Ot J44.9 CHRONIC OBSTRUCTIVE PULMONARY DISEASE, U 02/16/2016 SANDRA TANG SERGEANT MISSILE CREWMAN Ot Z17.1 ESTROGEN RECEPTOR NEGATIVE STATUS [ER-] 02/16/2016 SANDRA TANG S SERGEANT MISSILE CREWMAN Ot Z68.35 BODY MASS INDEX (BMI) 35.0-35.9, ADULT 02/16/2016 SANDRA TANG SERGEANT MISSILE CREWMAN Ot Z79.899 OTHER FDC (CURRENT) DRUG THERAPY 02/16/2016 CEE ALSTON MD Ot C50.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 02/16/2016 CEE ALSTON MD Ot Z51.81 ENCOUNTER FOR THERAPEUTIC DRUG LEVEL MON 02/16/2016 CEE ALSTON MD Ot Z79.899 OTHER 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 (CURRENT) DRUG THERAPY 02/16/2016 CEE ALSTON [...] 02/16/2016 CEE ALSTON MD Ot Z79.899 OTHER FDC [...] 02/16/2016 EULOGIO BRAGA MD, Ot Z79.899 OTHER FDC (CURRENT) DRUG THERAPY 02/16/2016 DAÍRO BURROWS APRN Ot 784.2 SWELLING IN HEAD NECK 02/16/2016 SHERRY ROGEL MD ([facility]) Ot Z02.71 ENCOUNTER FOR DISABILITY DETERMINATION 02/16/2016 DARÍO BURROWS APRN Ot N64.4 MASTODYNIA 02/16/2016 DARÍO BURROWS SANDBLASTING SUPERVISOR Ot N63 UNSPECIFIED LUMP IN BREAST 02/16/2016 BURROWSDARÍO SANDBLASTING SUPERVISOR Ot R92.8 OTH ABN AND INCONCLUSIVE FINDINGS ON DX 02/16/2016 CEE ALSTON MD Ot C50.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 02/16/2016 CEE ALSTON MD Ot Z51.81 ENCOUNTER FOR THERAPEUTIC DRUG LEVEL MON 02/16/2016 CEE ALSTON MD, Ot Z79.899 OTHER FDC (CURRENT) DRUG THERAPY 02/16/2016 CEE ALSTON MD, Ot C50.511 MALIG NEOPLM OF LOWER-OUTER QUADRANT OF 02/16/2016 CEE ALSTON MD Ot R92.8 OTH ABN AND INCONCLUSIVE FINDINGS ON DX 02/16/2016 SANDRA TANGP Ot C50.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 02/16/2016 SANDRA TANG SERGEANT MISSILE CREWMAN Ot E66.9 OBESITY, UNSPECIFIED 02/16/2016 SANDRA TANG SERGEANT MISSILE CREWMAN Ot E78.5 HYPERLIPIDEMIA, UNSPECIFIED 02/16/2016 SANDRA TANG SERGEANT MISSILE CREWMAN Ot F17.210 NICOTINE DEPENDENCE, CIGARETTES, UNCOMPL 02/16/2016 SANDRA TANG SERGEANT MISSILE CREWMAN Ot F31.9 BIPOLAR DISORDER, UNSPECIFIED 02/16/2016 SANDRA TANG SERGEANT MISSILE CREWMAN Ot I10 ESSENTIAL (PRIMARY) HYPERTENSION 02/16/2016 SANDRA TANG SERGEANT MISSILE CREWMAN Ot J44.9 CHRONIC OBSTRUCTIVE PULMONARY DISEASE, U 02/16/2016 SANDRA TANG SERGEANT MISSILE CREWMAN Ot Z17.1 ESTROGEN RECEPTOR NEGATIVE STATUS [ER-] 02/16/2016 SANDRA TANG SERGEANT MISSILE CREWMAN Ot Z68.35 BODY MASS INDEX (BMI) 35.0-35.9, ADULT 02/16/2016 SANDRA TANG SERGEANT MISSILE CREWMAN Ot Z79.899 OTHER 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 (CURRENT) DRUG THERAPY 02/16/2016 CEE ALSTON MD Ot C50.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 02/16/2016 CEE ALSTON MD Ot Z51.81 ENCOUNTER FOR THERAPEUTIC DRUG LEVEL MON 02/16/2016 CEE ALSTON MD, Ot Z79.899 OTHER 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 (CURRENT) DRUG THERAPY 02/16/2016 CEE ALSTON MD Ot C50.511 MALIG NEOPLM OF LOWER-OUTER QUADRANT OF 02/16/2016 MARIA LUZ MURRAY, CAM Jara Ot C50.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 02/16/2016 MARIA LUZ MURARY, CAM Jara Ot Z01.818 ENCOUNTER FOR OTHER PREPROCEDURAL EXAMIN 02/16/2016 CEE ALSTON MD Ot C50.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 02/16/2016 CEE ALSTON MD Ot Z51.81 ENCOUNTER FOR THERAPEUTIC DRUG LEVEL MON 02/16/2016 GAMALIEL MURRAY CEE Konstantin Ot Z79.899 OTHER [facility]DC (CURRENT) DRUG THERAPY 02/16/2016 SANDRA TANG Ot C50.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 02/16/2016 SANDRA TANG Ot Z79.899 OTHER 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 (CURRENT) DRUG THERAPY 02/16/2016 CEE ALSTON [...] 02/16/2016 EULOGIO BRAGA MD, Ot Z79.899 OTHER [facility]DC (CURRENT) DRUG THERAPY 02/16/2016 EDIL QURESHI Ot F17.210 NICOTINE DEPENDENCE, CIGARETTES, UNCOMPL 02/16/2016 EDIL QURESHI Ot F41.9 ANXIETY DISORDER, UNSPECIFIED 02/16/2016 EDIL QURESHI Ot I10 ESSENTIAL (PRIMARY) HYPERTENSION 02/16/2016 EDIL QURESHI Ot Z95.9 PRESENCE OF CARDIAC AND VASCULAR IMPLANT 02/16/2016 DARÍO BURROWS APRN Ot 784.2 SWELLING IN HEAD NECK 02/16/2016 SHERRY ROGEL MD ([facility]) Ot Z02.71 ENCOUNTER FOR DISABILITY DETERMINATION 02/16/2016 DAÍRO BURROWS SANDBLASTING SUPERVISOR Ot N64.4 MASTODYNIA 02/16/2016 DARÍO BURROWS SANDBLASTING SUPERVISOR Ot N63 UNSPECIFIED LUMP IN BREAST 02/16/2016 DARÍO BURROWS APRN Ot R92.8 OTH ABN AND INCONCLUSIVE FINDINGS ON DX 02/16/2016 CEE ALSTON MD Ot C50.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 02/16/2016 CEE ALSTON MD Ot Z51.81 ENCOUNTER FOR THERAPEUTIC DRUG LEVEL MON 02/16/2016 CEE ALSTON MD Ot Z79.899 OTHER FDC (CURRENT) DRUG THERAPY 02/16/2016 CEE ALSTON MD Ot C50.511 MALIG NEOPLM OF LOWER-OUTER QUADRANT OF 02/16/2016 CEE ALSTON MD Ot R92.8 OTH ABN AND INCONCLUSIVE FINDINGS ON DX 02/16/2016 SANDRA TANG Ot C50.511 MALIG NEOPLM OF LOWER-OUTER QUADRANT OF 02/16/2016 SANDRA TANGP Ot E66.9 OBESITY, UNSPECIFIED 02/16/2016 SANDRA TANG SERGEANT MISSILE CREWMAN Ot E78.5 HYPERLIPIDEMIA, UNSPECIFIED 02/16/2016 SANDRA TANGP Ot F17.210 NICOTINE DEPENDENCE, CIGARETTES, UNCOMPL 02/16/2016 SANDRA TANGP Ot F31.9 BIPOLAR DISORDER, UNSPECIFIED 02/16/2016 SANDRA TANG SERGEANT MISSILE CREWMAN Ot I10 ESSENTIAL (PRIMARY) HYPERTENSION 02/16/2016 SANDRA TANG SERGEANT MISSILE CREWMAN Ot J44.9 CHRONIC OBSTRUCTIVE PULMONARY DISEASE, U 02/16/2016 SANDRA TANGP Ot Z17.1 ESTROGEN RECEPTOR NEGATIVE STATUS [ER-] 02/16/2016 SANDRA TANG SERGEANT MISSILE CREWMAN Ot Z68.35 BODY MASS INDEX (BMI) 35.0-35.9, ADULT 02/16/2016 SANDRA TANG Ot Z79.899 OTHER FDC (CURRENT) DRUG THERAPY 02/16/2016 CEE ALSTON MD Ot C50.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 02/16/2016 CEE ALSTON MD Ot Z51.81 ENCOUNTER FOR THERAPEUTIC DRUG LEVEL MON 02/16/2016 CEE ALSTON MD Ot Z79.899 OTHER 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 (CURRENT) DRUG THERAPY 02/16/2016 CEE ALSTON [...] 02/16/2016 CEE ALSTON MD Ot Z79.899 OTHER FDC [...] 02/16/2016 EULOGIO BRAGA MD, Ot Z79.899 OTHER 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 (CURRENT) DRUG THERAPY 02/17/2016 EDIL QURESHI [...] 03/01/2016 CEE ALSTON MD Ot Z79.899 OTHER 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 (CURRENT) DRUG THERAPY 03/01/2016 CEE ALSTON MD Ot C50.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 03/01/2016 CEE ALSTON MD Ot R92.8 OTH ABN AND INCONCLUSIVE FINDINGS ON DX 03/01/2016 SANDRA TANG Ot 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 03/01/2016 TANG, HILAH S SERGEANT MISSILE CREWMAN Ot E66.9 OBESITY, UNSPECIFIED 03/01/2016 KITTY SANDRA Lazar SERGEANT MISSILE CREWMAN Ot E78.5 HYPERLIPIDEMIA, UNSPECIFIED 03/01/2016 SANDRA TANG SERGEANT MISSILE CREWMAN Ot F17.210 NICOTINE DEPENDENCE, CIGARETTES, UNCOMPL 03/01/2016 KARIN TANGSINGH Cady SERGEANT MISSILE CREWMAN Ot F31.9 BIPOLAR DISORDER, UNSPECIFIED 03/01/2016 SANDRA TANGP Ot I10 ESSENTIAL (PRIMARY) HYPERTENSION 03/01/2016 SANDRA TANGP Ot J44.9 CHRONIC OBSTRUCTIVE PULMONARY DISEASE, U 03/01/2016 SANDRA TANGP Ot Z17.1 ESTROGEN RECEPTOR NEGATIVE STATUS [ER-] 03/01/2016 SANDRA TANGP Ot Z68.35 BODY MASS INDEX (BMI) 35.0-35.9, ADULT 03/01/2016 SANDRA TANGP Ot Z79.899 OTHER 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 (CURRENT) DRUG THERAPY 03/01/2016 CEE ALSTON [...] UNSP SITE OF RIGHT 03/01/2016 MARIA LUZ MURRYA, CAM Jara Ot Z01.818 ENCOUNTER FOR OTHER PREPROCEDURAL EXAMIN 03/01/2016 CEE ALSTON MD Ot C50.511 MALIG NEOPLM OF LOWER-OUTER QUADRANT OF 03/01/2016 CEE ALSTON MD Ot Z51.81 ENCOUNTER FOR THERAPEUTIC DRUG LEVEL MON 03/01/2016 CEE ALSTON MD Ot Z79.899 OTHER FDC (CURRENT) DRUG THERAPY 03/01/2016 SANDRA TANG Ot C50.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 03/01/2016 SANDRA TANG Ot Z79.899 OTHER 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 (CURRENT) DRUG THERAPY 03/01/2016 CEE ALSTON MD Ot C50.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 03/01/2016 CEE ALSTON MD Ot Z51.81 ENCOUNTER FOR THERAPEUTIC DRUG LEVEL MON 03/01/2016 DARÍO BURROWS SANDBLASTING SUPERVISOR Ot 784.2 SWELLING IN HEAD NECK 03/01/2016 SHERRY ROGEL MD ([facility]) Ot Z02.71 ENCOUNTER FOR DISABILITY DETERMINATION 03/01/2016 DARÍO BURROWS SANDBLASTING SUPERVISOR Ot N64.4 MASTODYNIA 03/01/2016 DARÍO BURROWS SANDBLASTING SUPERVISOR Ot N63 UNSPECIFIED LUMP IN BREAST 03/01/2016 DARÍO BURROWS SANDBLASTING SUPERVISOR Ot R92.8 OTH ABN AND INCONCLUSIVE FINDINGS [...] NICOTINE DEPENDENCE, CIGARETTES, UNCOMPL 03/01/2016 SANDRA TANG Ot F31.9 BIPOLAR DISORDER, UNSPECIFIED 03/01/2016 SANDRA TANG Ot I10 ESSENTIAL (PRIMARY) HYPERTENSION 03/01/2016 SANDRA TANG Ot J44.9 CHRONIC OBSTRUCTIVE PULMONARY DISEASE, U 03/01/2016 SANDRA TANG Ot Z17.1 ESTROGEN RECEPTOR NEGATIVE STATUS [ER-] 03/01/2016 SANDRA TANG Ot Z68.35 BODY MASS INDEX (BMI) 35.0-35.9, ADULT 03/01/2016 SANDRA TANG SERGEANT MISSILE CREWMAN Ot Z79.899 OTHER FDC (CURRENT) DRUG THERAPY [...] Z79.899 OTHER FDC (CURRENT) DRUG THERAPY 03/01/2016 SANDRA TANG SERGEANT MISSILE CREWMAN Ot C50.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 03/01/2016 SANDRA TANG Ot Z79.899 OTHER 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 (CURRENT) DRUG THERAPY 03/01/2016 CEE ALSTON [...] Ot Z79.899 OTHER FDC (CURRENT) DRUG THERAPY 03/02/2016 ADE FOWLER Ot Z51.81 ENCOUNTER FOR THERAPEUTIC DRUG LEVEL MON 03/02/2016 ADE FOWLER Ot Z79.899 OTHER 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 (CURRENT) DRUG THERAPY 03/04/2016 ADE FOWLER Ot [...] 03/04/2016 KAYLA MELENDEZ APRN Ot Z79.899 OTHER FDC (CURRENT) DRUG THERAPY [...] 03/05/2016 KAYLA MELENDEZ APRN Ot Z79.899 OTHER 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 (CURRENT) DRUG THERAPY 03/05/2016 KAYLA MELENDEZ APRN Ot Z90.11 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 03/07/2016 ADE FOWLER Ot Z51.81 ENCOUNTER FOR THERAPEUTIC DRUG LEVEL MON 03/07/2016 ADE FOWLER Ot Z79.899 OTHER 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 (CURRENT) DRUG THERAPY 03/18/2016 ADE FOWLER Ot Z51.81 ENCOUNTER FOR THERAPEUTIC DRUG LEVEL MON 03/18/2016 ADE FOWLER Ot Z79.899 OTHER 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 (CURRENT) DRUG THERAPY 04/19/2016 BURROWS, DARÍO A SANDBLASTING SUPERVISOR Ot 784.2 SWELLING IN HEAD NECK 04/19/2016 PEBBLES MURRAY, SHERRY You (U) Ot Z02.71 ENCOUNTER FOR DISABILITY DETERMINATION 04/19/2016 DARÍO BURROWS SANDBLASTING SUPERVISOR Ot N64.4 MASTODYNIA 04/19/2016 DARÍO BURROWS SANDBLASTING SUPERVISOR Ot N63 UNSPECIFIED LUMP IN BREAST 04/19/2016 DARÍO BURROWS SANDBLASTING SUPERVISOR Ot R92.8 OTH ABN AND INCONCLUSIVE FINDINGS [...] OF LOWER-OUTER QUADRANT OF 04/19/2016 SANDRA TANG SERGEANT MISSILE CREWMAN Ot E66.9 OBESITY, UNSPECIFIED 04/19/2016 SANDRA TANG SERGEANT MISSILE CREWMAN Ot E78.5 HYPERLIPIDEMIA, UNSPECIFIED 04/19/2016 SANDRA TANG SERGEANT MISSILE CREWMAN Ot F17.210 NICOTINE DEPENDENCE, CIGARETTES, UNCOMPL 04/19/2016 SANDRA TANGP Ot F31.9 BIPOLAR DISORDER, UNSPECIFIED 04/19/2016 SANDRA TANGP Ot I10 ESSENTIAL (PRIMARY) HYPERTENSION 04/19/2016 SANDRA TANGP Ot J44.9 CHRONIC OBSTRUCTIVE PULMONARY DISEASE, U 04/19/2016 SANDRA TANGP Ot Z17.1 ESTROGEN RECEPTOR NEGATIVE STATUS [ER-] 04/19/2016 SANDRA TANGP Ot Z68.35 BODY MASS INDEX (BMI) 35.0-35.9, ADULT 04/19/2016 SANDRA TANG SERGEANT MISSILE CREWMAN Ot Z79.899 OTHER 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 (CURRENT) DRUG THERAPY 04/19/2016 CEE ALSTON [...] NEOPLASM OF UNSP SITE OF RIGHT 04/19/2016 MARIA LUZ MURRAY, CAM Jara Ot Z01.818 ENCOUNTER FOR OTHER PREPROCEDURAL EXAMIN 04/19/2016 CEE ALSTON MD Ot C50.511 MALIG NEOPLM OF LOWER-OUTER QUADRANT OF 04/19/2016 CEE ALSTON MD Ot Z51.81 ENCOUNTER FOR THERAPEUTIC DRUG LEVEL MON 04/19/2016 CEE ALSTON MD Ot Z79.899 OTHER 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 (CURRENT) DRUG THERAPY 04/19/2016 SANDRA TANGP Ot C50.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 04/19/2016 SANDRA TANG SERGEANT MISSILE CREWMAN Ot Z79.899 OTHER [facility]DC (CURRENT) DRUG THERAPY [...] Z17.0 ESTROGEN RECEPTOR POSITIVE STATUS [ER+] 05/06/2016 XUN MD, PIRES-DENEEN Ot Z68.34 BODY MASS INDEX (BMI) 34.0-34.9, ADULT 05/06/2016 EULOGIO BRAGA MD Ot Z79.899 OTHER [facility]DC (CURRENT) DRUG THERAPY 05/06/2016 DARÍO BURROWS APRN Ot 784.2 SWELLING IN HEAD NECK 05/06/2016 PEBBLES MURRAY, SHERRY You ([facility]) Ot Z02.71 ENCOUNTER FOR DISABILITY DETERMINATION 05/06/2016 DARÍO BURROWS SANDBLASTING SUPERVISOR Ot N64.4 MASTODYNIA 05/06/2016 DARÍO BURROWS SANDBLASTING SUPERVISOR Ot N63 UNSPECIFIED LUMP IN BREAST 05/06/2016 DARÍO BURROWS APRN Ot R92.8 OTH ABN AND INCONCLUSIVE FINDINGS ON DX 05/06/2016 CEE ALSTON MD Ot C50.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 05/06/2016 CEE ALSTON MD Ot Z51.81 ENCOUNTER FOR THERAPEUTIC DRUG LEVEL MON 05/06/2016 CEE ALSTON MD Ot Z79.899 OTHER 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 (CURRENT) DRUG THERAPY 05/06/2016 CEE ALSTON MD Ot C50.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 05/06/2016 CEE ALSTON MD Ot R92.8 OTH ABN AND INCONCLUSIVE FINDINGS ON DX 05/06/2016 SANDRA TANG Ot C50.511 MALIG NEOPLM OF LOWER-OUTER QUADRANT OF 05/06/2016 SANDRA TANGP Ot E66.9 OBESITY, UNSPECIFIED 05/06/2016 SANDRA TANGP Ot E78.5 HYPERLIPIDEMIA, UNSPECIFIED 05/06/2016 SANDRA TNAGP Ot F17.210 NICOTINE DEPENDENCE, CIGARETTES, UNCOMPL 05/06/2016 SANDRA TANGP Ot F31.9 BIPOLAR DISORDER, UNSPECIFIED 05/06/2016 SANDRA TANGP Ot I10 ESSENTIAL (PRIMARY) HYPERTENSION 05/06/2016 SANDRA TANGP Ot J44.9 CHRONIC OBSTRUCTIVE PULMONARY DISEASE, U 05/06/2016 SANDRA TANGP Ot Z17.1 ESTROGEN RECEPTOR NEGATIVE STATUS [ER-] 05/06/2016 SANDRA TANGP Ot Z68.35 BODY MASS INDEX (BMI) 35.0-35.9, ADULT 05/06/2016 SANDRA TANGP Ot Z79.899 OTHER FDC (CURRENT) DRUG THERAPY 05/06/2016 CEE ALSTON MD Ot 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 05/06/2016 CEE ALSTON MD Ot Z51.81 ENCOUNTER FOR THERAPEUTIC DRUG LEVEL MON 05/06/2016 CEE ALSTON MD Ot Z79.899 OTHER [facility]DC (CURRENT) DRUG THERAPY 05/06/2016 CEE ALSTON MD Ot C50.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 05/06/2016 MARIA LUZ MURRAY, CAM Jara Ot C50.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 05/06/2016 MARIA LUZ MURRAY, CAM Jara Ot Z01.818 ENCOUNTER FOR OTHER PREPROCEDURAL EXAMIN 05/06/2016 CEE ALSTON MD Ot 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 05/06/2016 CEE ALSTON MD Ot Z51.81 ENCOUNTER FOR THERAPEUTIC DRUG LEVEL MON 05/06/2016 CEE ALSTON MD Ot Z79.899 OTHER [facility] (CURRENT) DRUG THERAPY 05/06/2016 SANDRA TANG Ot 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 05/06/2016 SANDRA TANG Ot Z79.899 OTHER [facility] (CURRENT) DRUG THERAPY 05/06/2016 CEE ALSTON MD [...] RECEPTOR POSITIVE STATUS [ER+] 05/06/2016 EULOGIO BRAGA MD Ot Z68.34 BODY MASS INDEX (BMI) 34.0-34.9, ADULT 05/06/2016 EULOGIO BRAGA MD, Ot Z79.899 OTHER [facility] (CURRENT) DRUG THERAPY 05/24/2016 ADE FOWLER Ot Z51.81 ENCOUNTER FOR THERAPEUTIC DRUG LEVEL MON 05/24/2016 ADE FOWLER Ot Z79.899 OTHER [facility] (CURRENT) DRUG THERAPY 05/25/2016 EULOGIO BRAGA MD, Ot C50.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 05/25/2016 EULOGIO BRAGA MD, Ot E66.9 OBESITY, UNSPECIFIED 05/25/2016 EULOGIO BRAGA MD Ot E78.5 HYPERLIPIDEMIA, UNSPECIFIED 05/25/2016 EULOGIO BRAGA MD, Ot F17.210 NICOTINE DEPENDENCE, CIGARETTES, UNCOMPL 05/25/2016 EULOGIO BRAGA MD, Ot F31.9 BIPOLAR DISORDER, UNSPECIFIED 05/25/2016 EULOGIO BRAGA MD Ot I10 ESSENTIAL (PRIMARY) HYPERTENSION 05/25/2016 EULOGIO BRAGA MD, Ot J44.9 CHRONIC OBSTRUCTIVE PULMONARY DISEASE, U 05/25/2016 EULOGIO BRAGA MD Ot Z17.0 ESTROGEN RECEPTOR POSITIVE STATUS [ER+] 05/25/2016 EULOGIO BRAGA MD, Ot Z68.34 BODY MASS INDEX (BMI) 34.0-34.9, ADULT 05/25/2016 EULOGIO BRAGA MD, Ot Z79.899 OTHER 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 (CURRENT) DRUG THERAPY 05/25/2016 ABAD MURRAY MD Ot C50.919 MALIGNANT NEOPLASM OF UNSP SITE OF UNSPE 05/25/2016 ABAD MURRAY MD Ot F17.210 NICOTINE DEPENDENCE, CIGARETTES, UNCOMPL 05/25/2016 ABAD MURRAY MD Ot I10 ESSENTIAL (PRIMARY) HYPERTENSION 05/25/2016 ABAD MURRAY MD Ot J44.1 CHRONIC OBSTRUCTIVE PULMONARY DISEASE W 05/25/2016 GAULT MD, ABAD R Ot K21.9 GASTRO-ESOPHAGEAL REFLUX DISEASE WITHOUT 05/25/2016 ABAD MURRAY MD Ot M06.9 RHEUMATOID ARTHRITIS, UNSPECIFIED 05/25/2016 ABAD MURRAY MD Ot R07.89 OTHER CHEST PAIN 05/25/2016 ABAD MURRAY MD Ot Z90.11 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 05/25/2016 ABAD MURRAY MD Ot Z90.12 ACQUIRED ABSENCE OF LEFT BREAST AND NIPP 05/26/2016 JANETH ADE Ot Z51.81 ENCOUNTER FOR THERAPEUTIC DRUG LEVEL MON 05/26/2016 JANETHADE Ot Z79.899 OTHER 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 (CURRENT) DRUG THERAPY 05/26/2016 KARLIE ZHU MD [...] 05/26/2016 KARLIE ZHU MD Ot Z79.899 OTHER 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 (CURRENT) DRUG THERAPY 05/26/2016 KARLIE ZHU MD Ot Z90.13 ACQUIRED ABSENCE OF BILATERAL BREASTS AN 05/27/2016 KARLIE ZHU MD Ot C50.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 05/27/2016 KARLIE ZHU MD Ot F17.210 NICOTINE DEPENDENCE, CIGARETTES, UNCOMPL 05/27/2016 KARLIE HZU MD Ot I10 ESSENTIAL (PRIMARY) HYPERTENSION 05/27/2016 KARLIE ZHU MD Ot K62.5 HEMORRHAGE OF ANUS AND RECTUM 05/27/2016 KARLIE ZHU MD Ot R10.84 GENERALIZED ABDOMINAL PAIN 05/27/2016 KARLIE ZHU MD Ot R19.7 DIARRHEA, UNSPECIFIED 05/27/2016 KARLIE ZHU MD Ot Z79.899 OTHER 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 (CURRENT) DRUG THERAPY 05/27/2016 MARKO MURRAY, KARLIE Owens Ot Z90.13 ACQUIRED ABSENCE OF BILATERAL BREASTS AN 06/28/2016 YANG ELKINS MD Ot B35.9 DERMATOPHYTOSIS, UNSPECIFIED 06/28/2016 YANG ELKINS MD Ot C50.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 06/28/2016 YANG ELKINS MD, Ot C50.912 MALIGNANT NEOPLASM OF UNSPECIFIED SITE O 06/28/2016 YANG ELKINS MD Ot F17.210 NICOTINE DEPENDENCE, CIGARETTES, UNCOMPL 06/28/2016 YANG ELKINS MD Ot I10 ESSENTIAL (PRIMARY) HYPERTENSION 06/28/2016 YANG ELKINS MD Ot L03.313 CELLULITIS OF CHEST WALL 06/28/2016 YANG ELKINS MD, Ot Z79.899 OTHER [facility] (CURRENT) DRUG THERAPY 06/28/2016 YANG ELKINS MD Ot Z90.13 ACQUIRED ABSENCE OF BILATERAL BREASTS AN 07/19/2016 EULOGIO BRAGA MD Ot C50.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 07/19/2016 EULOGIO BRAGA MD Ot E66.9 OBESITY, UNSPECIFIED 07/19/2016 EULOGIO BRAGA MD, Ot E78.5 HYPERLIPIDEMIA, UNSPECIFIED 07/19/2016 EULOGIO BRAGA MD Ot F17.210 NICOTINE DEPENDENCE, CIGARETTES, UNCOMPL 07/19/2016 EULOGIO BRAGA MD, Ot F31.9 BIPOLAR DISORDER, UNSPECIFIED 07/19/2016 EULOGIO BRAGA MD, Ot I10 ESSENTIAL (PRIMARY) HYPERTENSION 07/19/2016 EULOGIO BRAGA MD, Ot J44.9 CHRONIC OBSTRUCTIVE PULMONARY DISEASE, U 07/19/2016 EULOGIO BRAGA MD Ot Z17.0 ESTROGEN RECEPTOR POSITIVE STATUS [ER+] 07/19/2016 EULOGIO BRAGA MD, Ot Z51.0 ENCOUNTER FOR ANTINEOPLASTIC RADIATION T 07/19/2016 EULOGIO BRAGA MD Ot Z68.34 BODY MASS INDEX (BMI) 34.0-34.9, ADULT 07/19/2016 EULOGIO BRAGA MD, Ot Z79.899 OTHER [facility] (CURRENT) DRUG THERAPY 07/21/2016 EULOGIO BRAGA MD Ot C50.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 07/21/2016 EULOGIO BRAGA MD Ot E66.9 OBESITY, UNSPECIFIED 07/21/2016 EULOGIO BRAGA MD Ot E78.5 HYPERLIPIDEMIA, UNSPECIFIED 07/21/2016 EULOGIO BRAGA MD Ot F17.210 NICOTINE DEPENDENCE, CIGARETTES, UNCOMPL 07/21/2016 EULOGIO BRAGA MD Ot F31.9 BIPOLAR DISORDER, UNSPECIFIED 07/21/2016 EULOGIO BRAGA MD Ot I10 ESSENTIAL (PRIMARY) HYPERTENSION 07/21/2016 EULOGIO BRAGA MD, Ot J44.9 CHRONIC OBSTRUCTIVE PULMONARY DISEASE, U 07/21/2016 EULOGIO BRAGA MD Ot Z17.0 ESTROGEN RECEPTOR POSITIVE STATUS [ER+] 07/21/2016 EULOGIO BRAGA MD Ot Z68.34 BODY MASS INDEX (BMI) 34.0-34.9, ADULT 07/21/2016 EULOGIO BRAGA MD Ot Z79.899 OTHER [facility] (CURRENT) DRUG THERAPY 08/23/2016 EULOGIO BRAGA MD Ot C50.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 08/23/2016 EULOGIO BRAGA MD Ot E66.9 OBESITY, UNSPECIFIED 08/23/2016 EULOGIO BRAGA MD Ot E78.5 HYPERLIPIDEMIA, UNSPECIFIED 08/23/2016 EULOGIO BRAGA MD Ot F17.210 NICOTINE DEPENDENCE, CIGARETTES, UNCOMPL 08/23/2016 EULOGIO BRAGA MD Ot F31.9 BIPOLAR DISORDER, UNSPECIFIED 08/23/2016 EULOGIO BRAGA MD Ot I10 ESSENTIAL (PRIMARY) HYPERTENSION 08/23/2016 EULOGIO BRAGA MD Ot J44.9 CHRONIC OBSTRUCTIVE PULMONARY DISEASE, U 08/23/2016 EULOGIO BRAGA MD Ot Z17.0 ESTROGEN RECEPTOR POSITIVE STATUS [ER+] 08/23/2016 EULOGIO BRAGA MD Ot Z68.34 BODY MASS INDEX (BMI) 34.0-34.9, ADULT 08/23/2016 EULOGIO BRAGA MD Ot Z79.899 OTHER [facility] (CURRENT) DRUG THERAPY 10/18/2016 XUN MD, PIRES-DENEEN Ot C50.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 10/18/2016 EULOGIO BRAGA MD Ot E66.9 OBESITY, UNSPECIFIED 10/18/2016 EULOGIO BRAGA MD Ot E78.5 HYPERLIPIDEMIA, UNSPECIFIED 10/18/2016 EULOGIO BRAGA MD Ot F17.210 NICOTINE DEPENDENCE, CIGARETTES, UNCOMPL 10/18/2016 EULOGIO BRAGA MD, Ot F31.9 BIPOLAR DISORDER, UNSPECIFIED 10/18/2016 EULOGIO BRAGA MD Ot I10 ESSENTIAL (PRIMARY) HYPERTENSION 10/18/2016 EULOGIO BRAGA MD Ot J44.9 CHRONIC OBSTRUCTIVE PULMONARY DISEASE, U 10/18/2016 EULOGIO BRAGA MD Ot Z17.0 ESTROGEN RECEPTOR POSITIVE STATUS [ER+] 10/18/2016 EULOGIO BRAGA MD Ot Z68.34 BODY MASS INDEX (BMI) 34.0-34.9, ADULT 10/18/2016 EULOGIO BRAGA MD Ot Z79.899 OTHER [facility] (CURRENT) DRUG THERAPY 12/29/2016 ADE FOWLER Ot Z51.81 ENCOUNTER FOR THERAPEUTIC DRUG LEVEL [facility] 12/29/2016 ADE FOWLER Ot Z79.899 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 (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) DRUG THERAPY 12/29/2016 EULOGIO BRAGA MD, Ot C50.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 12/29/2016 EULOGIO BRAGA MD Ot E66.9 OBESITY, UNSPECIFIED 12/29/2016 EULOGIO BRAGA MD Ot E78.5 HYPERLIPIDEMIA, UNSPECIFIED 12/29/2016 EULOGIO BRAGA MD Ot F17.210 NICOTINE DEPENDENCE, CIGARETTES, UNCOMPL 12/29/2016 EULOGIO BRAGA MD, Ot F31.9 BIPOLAR DISORDER, UNSPECIFIED 12/29/2016 EULOGIO BRAGA MD Ot I10 ESSENTIAL (PRIMARY) HYPERTENSION 12/29/2016 EULOGIO BRAGA MD Ot J44.9 CHRONIC OBSTRUCTIVE PULMONARY DISEASE, U 12/29/2016 EULOGIO BRAGA MD Ot Z17.0 ESTROGEN RECEPTOR POSITIVE STATUS [ER+] 12/29/2016 EULOGIO BRAGA MD Ot Z68.34 BODY MASS INDEX (BMI) 34.0-34.9, ADULT 12/29/2016 EULOGIO BRAGA MD, Ot Z79.899 OTHER [facility] (CURRENT) DRUG THERAPY 12/29/2016 EMILY MURPHY DO Ot C50.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 12/29/2016 JEFFREY EMILY BALL Ot C50.912 MALIGNANT NEOPLASM OF UNSPECIFIED SITE O 12/29/2016 JEFFREY BALLEMILY Ot C79.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 12/29/2016 JEFFREY DO EMILY K Ot E78.00 PURE HYPERCHOLESTEROLEMIA, UNSPECIFIED 12/29/2016 JEFFREY EMILY BALL Ot F17.210 NICOTINE DEPENDENCE, CIGARETTES, UNCOMPL 12/29/2016 EMILY MURPHY DO Ot F31.9 BIPOLAR DISORDER, UNSPECIFIED 12/29/2016 EMILY MURPHY DO Ot F41.9 ANXIETY DISORDER, UNSPECIFIED 12/29/2016 JEFFREY RAH BALLA K Ot I10 ESSENTIAL (PRIMARY) HYPERTENSION 12/29/2016 JEFFREY BALL EMILY K Ot J45.909 UNSPECIFIED ASTHMA, UNCOMPLICATED 12/29/2016 EMILY MURPHY DO Ot K21.9 GASTRO-ESOPHAGEAL REFLUX DISEASE WITHOUT 12/29/2016 JEFFREY EMILY BALL Ot M06.9 RHEUMATOID ARTHRITIS, UNSPECIFIED 12/29/2016 JEFFREY BALL EMILY K Ot R51 HEADACHE 12/29/2016 JEFFREY EMILY BALL Ot Z85.828 PERSONAL HISTORY OF OTHER MALIGNANT NEOP 12/29/2016 EMILY MURPHY DO Ot Z87.59 PERSONAL HISTORY OF COMP OF PREG, CHLDBR 12/29/2016 EMILY MURPHY DO Ot Z90.13 ACQUIRED ABSENCE OF BILATERAL BREASTS AN 01/03/2017 EULOGIO BRAGA MD Ot C50.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 01/03/2017 EULOGIO BRAGA MD Ot E66.9 OBESITY, UNSPECIFIED 01/03/2017 EULOGIO BRAGA MD, Ot E78.5 HYPERLIPIDEMIA, UNSPECIFIED 01/03/2017 EULOGIO BRAGA MD, Ot F17.210 NICOTINE DEPENDENCE, CIGARETTES, UNCOMPL 01/03/2017 EULOGIO BRAGA MD, Ot F31.9 BIPOLAR DISORDER, UNSPECIFIED 01/03/2017 EULOGIO BRAGA MD, Ot I10 ESSENTIAL (PRIMARY) HYPERTENSION 01/03/2017 EULOGIO BRAGA MD, Ot J44.9 CHRONIC OBSTRUCTIVE PULMONARY DISEASE, U 01/03/2017 EULOGIO BRAGA MD Ot Z17.0 ESTROGEN RECEPTOR POSITIVE STATUS [ER+] 01/03/2017 EULOGIO BRAGA MD Ot Z51.0 ENCOUNTER FOR ANTINEOPLASTIC RADIATION T 01/03/2017 EULOGIO BRAGA MD Ot Z68.34 BODY MASS INDEX (BMI) 34.0-34.9, ADULT 01/03/2017 EULOGIO BRAGA MD Ot Z79.899 OTHER [facility] (CURRENT) DRUG THERAPY 01/07/2017 KAYLA MELENDEZ APRN [...] Ot E78.5 HYPERLIPIDEMIA, UNSPECIFIED 01/21/2017 EULOGIO BRAGA MD Ot F17.210 NICOTINE DEPENDENCE, CIGARETTES, UNCOMPL 01/21/2017 [...] 01/21/2017 EULOGIO BRAGA MD, Ot Z79.899 OTHER 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 (CURRENT) DRUG THERAPY 03/27/2017 KARLIE ZHU MD Ot C79.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 03/27/2017 KARLIE ZHU MD Ot E78.00 PURE HYPERCHOLESTEROLEMIA, UNSPECIFIED 03/27/2017 KARLIE ZHU MD Ot F17.210 NICOTINE DEPENDENCE, CIGARETTES, UNCOMPL 03/27/2017 KARLIE ZHU MD Ot F31.9 BIPOLAR DISORDER, UNSPECIFIED 03/27/2017 KARLIE ZHU MD, Ot F41.9 ANXIETY DISORDER, UNSPECIFIED 03/27/2017 KARLIE [...] F31.9 BIPOLAR DISORDER, UNSPECIFIED 03/29/2017 EULOGIO BRAGA MD Ot I10 ESSENTIAL (PRIMARY) HYPERTENSION 03/29/2017 EULOGIO BRAGA MD, Ot J44.9 CHRONIC OBSTRUCTIVE PULMONARY DISEASE, U 03/29/2017 EULOGIO BRAGA MD, Ot Z17.0 ESTROGEN RECEPTOR POSITIVE STATUS [ER+] 03/29/2017 EULOGIO BRAGA MD, Ot Z51.0 ENCOUNTER FOR ANTINEOPLASTIC RADIATION T 03/29/2017 EULOGIO BRAGA MD, Ot Z68.34 BODY MASS INDEX (BMI) 34.0-34.9, ADULT 03/29/2017 EULOGIO BRAGA MD, Ot Z79.899 OTHER [facility] (CURRENT) DRUG THERAPY 03/29/2017 KARLIE ZHU MD Ot C79.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 03/29/2017 KARLIE ZHU MD Ot E78.00 PURE HYPERCHOLESTEROLEMIA, UNSPECIFIED 03/29/2017 KARLIE ZHU MD Ot F17.210 NICOTINE DEPENDENCE, CIGARETTES, UNCOMPL 03/29/2017 KARLIE ZHU MD Ot F31.9 BIPOLAR DISORDER, UNSPECIFIED 03/29/2017 KARLIE ZHU MD, Ot F41.9 ANXIETY DISORDER, UNSPECIFIED 03/29/2017 KARLIE ZHU MD Ot I10 ESSENTIAL (PRIMARY) HYPERTENSION 03/29/2017 KARLIE ZHU MD Ot J45.909 UNSPECIFIED ASTHMA, UNCOMPLICATED 03/29/2017 KARLIE ZHU MD, Ot K21.9 GASTRO-ESOPHAGEAL REFLUX DISEASE WITHOUT 03/29/2017 KARLIE ZHU MD, Ot M06.9 RHEUMATOID ARTHRITIS, UNSPECIFIED 03/29/2017 KARLIE ZHU MD Ot R51 HEADACHE 03/29/2017 KARLIE ZHU MD, Ot Z79.52 F[facility] (CURRENT) USE OF SYSTEMIC STER 03/29/2017 KARLIE ZHU MD, Ot Z85.3 PERSONAL HISTORY OF MALIGNANT NEOPLASM O 03/29/2017 KARLIE ZHU MD Ot Z87.59 PERSONAL HISTORY OF COMP OF PREG, CHLDBR 03/29/2017 KARLIE ZHU MD, Ot Z90.13 ACQUIRED ABSENCE OF BILATERAL BREASTS AN 03/29/2017 KARLIE ZHU MD Ot Z92.21 PERSONAL HISTORY OF ANTINEOPLASTIC CHEMO 03/30/2017 EULOGIO BRAGA MD Ot C50.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 03/30/2017 EULOGIO BRAGA MD Ot E66.9 OBESITY, UNSPECIFIED 03/30/2017 EUOLGIO BRAGA MD Ot E78.5 HYPERLIPIDEMIA, UNSPECIFIED 03/30/2017 EULOGIO BRAGA MD Ot F17.210 NICOTINE DEPENDENCE, CIGARETTES, UNCOMPL 03/30/2017 EULOGIO BRAGA MD Ot F31.9 BIPOLAR DISORDER, UNSPECIFIED 03/30/2017 EULOGIO BRAGA MD Ot I10 ESSENTIAL (PRIMARY) HYPERTENSION 03/30/2017 EULOGIO BRAGA MD Ot J44.9 CHRONIC OBSTRUCTIVE PULMONARY DISEASE, U 03/30/2017 EULOGIO BRAGA MD Ot Z17.0 ESTROGEN RECEPTOR POSITIVE STATUS [ER+] 03/30/2017 EULOGIO BRAGA MD Ot Z51.0 ENCOUNTER FOR ANTINEOPLASTIC RADIATION T 03/30/2017 EULOGIO BRAGA MD Ot Z68.34 BODY MASS INDEX (BMI) 34.0-34.9, ADULT 03/30/2017 EULOGIO BRAGA MD Ot Z79.899 OTHER 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 (CURRENT) DRUG THERAPY 05/20/2017 ADE FOWLER Ot Z51.81 ENCOUNTER FOR THERAPEUTIC DRUG LEVEL MON 05/20/2017 ADE FOWLER Ot Z79.899 OTHER [facility] (CURRENT) DRUG THERAPY 05/20/2017 ANAIS MEREDITH MD [...] 05/20/2017 ANAIS MEREDITH MD Ot Z79.899 OTHER 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 (CURRENT) DRUG THERAPY 05/20/2017 ADE FOWLER Ot Z51.81 ENCOUNTER FOR THERAPEUTIC DRUG LEVEL MON 05/20/2017 ADE FOWLER Ot Z79.899 OTHER 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 (CURRENT) DRUG THERAPY 05/20/2017 ANAIS MEREDITH MD [...] 05/20/2017 ANAIS MEREDITH MD Ot Z79.899 OTHER 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 (CURRENT) DRUG THERAPY 05/20/2017 JEFFREY DO EMILY [...] Ot R11.2 NAUSEA WITH VOMITING, UNSPECIFIED 05/20/2017 EMILY MURPHY DO Ot R51 HEADACHE 05/20/2017 EMILY MURPHY DO [...] MON 05/20/2017 ADE FOWLER Ot Z79.899 OTHER [facility] (CURRENT) DRUG THERAPY 05/20/2017 ANAIS MEREDITH MD [...] 05/20/2017 ANAIS MEREDITH MD Ot Z79.899 OTHER [facility] (CURRENT) DRUG [...] MON 05/21/2017 ADE FOWLER Ot Z79.899 OTHER 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 (CURRENT) DRUG THERAPY 05/21/2017 ANAIS MEREDITH MD [...] OBSTRUCTIVE PULMONARY DISEASE, U 05/21/2017 ANAIS MEREDITH MD Ot Z17.0 ESTROGEN RECEPTOR POSITIVE STATUS [ER+] 05/21/2017 MASOUD MURRAY, ANAIS Harding Ot Z51.0 ENCOUNTER FOR ANTINEOPLASTIC RADIATION T 05/21/2017 MASOUD MURRAY, ANAIS Harding Ot Z68.34 BODY MASS INDEX (BMI) 34.0-34.9, ADULT 05/21/2017 ANAIS MEREDITH MD, Ot Z79.899 OTHER [facility] (CURRENT) DRUG THERAPY 05/23/2017 RAH MURPHY DOA Konstantin Ot C50.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 05/23/2017 JEFFREY RAH BALLA K Ot C50.912 MALIGNANT NEOPLASM OF UNSPECIFIED SITE O 05/23/2017 EMILY MURPHY DO Ot C79.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 05/23/2017 EMILY MURPHY DO Ot E78.00 PURE HYPERCHOLESTEROLEMIA, UNSPECIFIED 05/23/2017 JEFFREY BALL EMILY K Ot F17.210 NICOTINE DEPENDENCE, CIGARETTES, UNCOMPL 05/23/2017 RAH MURPHY DOA Konstantin Ot F31.9 BIPOLAR DISORDER, UNSPECIFIED 05/23/2017 JEFFREY RAH BALLA Konstantin Ot F41.9 ANXIETY DISORDER, UNSPECIFIED 05/23/2017 JEFFREY DO EMILY K Ot I10 ESSENTIAL (PRIMARY) HYPERTENSION 05/23/2017 RAH MURPHY DOA K Ot J45.909 UNSPECIFIED ASTHMA, UNCOMPLICATED 05/23/2017 JEFFREY BALL EMILY K Ot K21.9 GASTRO-ESOPHAGEAL REFLUX DISEASE WITHOUT 05/23/2017 RAH MURPHY DOA K Ot M06.9 RHEUMATOID ARTHRITIS, UNSPECIFIED 05/23/2017 RAH MURPHY DOA Konstantin Ot R11.2 NAUSEA WITH VOMITING, UNSPECIFIED 05/23/2017 JEFFREY RAH BALLA K Ot R51 HEADACHE 05/23/2017 JEFFREY DO EMILY [...] NEOPLASM OF UNSP SITE OF RIGHT 05/23/2017 NOELLE MAK MD Ot C79.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 05/23/2017 AUBREE MURRAY, NOELLE Cady Ot E78.00 PURE HYPERCHOLESTEROLEMIA, UNSPECIFIED 05/23/2017 AUBREE [...] Ot K21.9 GASTRO-ESOPHAGEAL REFLUX DISEASE WITHOUT 05/23/2017 NOELLE MAK MD Ot M06.9 RHEUMATOID ARTHRITIS, UNSPECIFIED 05/23/2017 NOELLE MAK MD Ot R10.13 EPIGASTRIC PAIN 05/23/2017 NOELLE MAK MD Ot Z77.22 CNTCT W AND EXPSR TO ENVIRON TOBACCO SMO 05/23/2017 AUBREE MURRAY NOELLE Cady Ot Z87.59 PERSONAL HISTORY OF COMP OF PREG, CHLDBR 05/23/2017 AUBREE MURRAY, NOELLE Lazar Ot Z90.13 ACQUIRED ABSENCE OF BILATERAL BREASTS AN 05/23/2017 AUBREE MURRAY NOELLE Cady Ot Z92.21 PERSONAL HISTORY OF [...] F41.9 ANXIETY DISORDER, UNSPECIFIED 06/03/2017 KAYLA MELENDEZ SANDBLASTING SUPERVISOR Ot I10 ESSENTIAL (PRIMARY) HYPERTENSION 06/03/2017 KAYLA MELENDEZ APRN Ot J45.909 UNSPECIFIED ASTHMA, UNCOMPLICATED 06/03/2017 KAYLA MELENDEZ APRN Ot K21.9 GASTRO-ESOPHAGEAL REFLUX DISEASE WITHOUT 06/03/2017 KAYLA MELENDEZ APRN Ot M06.9 RHEUMATOID ARTHRITIS, UNSPECIFIED 06/03/2017 KAYLA MELENDEZ APRN Ot R07.89 OTHER CHEST PAIN 06/03/2017 KAYLA MELENDEZ APRN Ot Z79.52 [facility] (CURRENT) USE OF SYSTEMIC STER 06/03/2017 KAYLA [...] PAIN 06/06/2017 KAYLA MELENDEZ APRN Ot Z79.52 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 (CURRENT) USE OF SYSTEMIC STER 06/06/2017 KAYLA [...] PAIN 06/09/2017 KAYLA MELENDEZ APRN Ot Z79.52 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 (CURRENT) USE OF SYSTEMIC STER 06/09/2017 KAYLA [...] ELEVATED WHITE BLOOD CELL COUNT, UNSPECI 06/29/2017 AKYLA MELENDEZ APRN Ot E78.00 PURE HYPERCHOLESTEROLEMIA, UNSPECIFIED [...] UNSPECIFIED 06/29/2017 KAYLA MELENDEZ APRN Ot Z79.52 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 (CURRENT) USE OF SYSTEMIC STER 06/29/2017 KAYLA MELENDEZ APRN Ot Z87.59 PERSONAL HISTORY OF COMP OF PREG, CHLDBR 06/29/2017 KAYLA MELENDEZ APRN Ot Z90.13 ACQUIRED ABSENCE OF BILATERAL BREASTS AN 06/29/2017 KAYLA MELENDEZ APRN Ot Z92.21 PERSONAL HISTORY OF ANTINEOPLASTIC CHEMO 06/29/2017 ADE FOWLER Ot Z51.81 ENCOUNTER FOR THERAPEUTIC DRUG LEVEL MON 06/29/2017 ADE FOWLER Ot Z79.899 OTHER [facility] (CURRENT) DRUG THERAPY 06/29/2017 ANAIS MEREDITH MD Ot C50.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 06/29/2017 ANAIS MEREDITH MD Ot E66.9 OBESITY, UNSPECIFIED 06/29/2017 ANAIS MEREDITH MD Ot E78.5 HYPERLIPIDEMIA, UNSPECIFIED 06/29/2017 ANAIS MEREDITH MD Ot F17.210 NICOTINE DEPENDENCE, CIGARETTES, UNCOMPL 06/29/2017 ANAIS MEREDITH MD Ot F31.9 BIPOLAR DISORDER, UNSPECIFIED 06/29/2017 ANAIS MEREDITH MD Ot I10 ESSENTIAL (PRIMARY) HYPERTENSION 06/29/2017 ANAIS MEREDITH MD, Ot J44.9 CHRONIC OBSTRUCTIVE PULMONARY DISEASE, U 06/29/2017 ANAIS MEREDITH MD Ot Z17.0 ESTROGEN RECEPTOR POSITIVE STATUS [ER+] 06/29/2017 ANAIS MEREDITH MD Ot Z51.0 ENCOUNTER FOR ANTINEOPLASTIC RADIATION T 06/29/2017 ANAIS MEREDITH MD Ot Z68.34 BODY MASS INDEX (BMI) 34.0-34.9, ADULT 06/29/2017 ANAIS MEREDITH MD Ot Z79.899 OTHER 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 (CURRENT) DRUG THERAPY 07/01/2017 KAYLA MELENDEZ APRN Ot C50.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 07/01/2017 MELENDEZ, PETER J SANDBLASTING SUPERVISOR Ot C79.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 [...] PAIN 07/06/2017 ZEKE ARCHER MD Ot Z79.52 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 (CURRENT) USE OF SYSTEMIC STER 07/06/2017 ZEKE ARCHER MD Ot Z85.3 PERSONAL HISTORY OF MALIGNANT NEOPLASM O 07/06/2017 ZEKE ARCHER MD, Ot Z85.828 PERSONAL HISTORY OF OTHER MALIGNANT NEOP 07/06/2017 ZEKE ARCHER MD, Ot Z85.841 PERSONAL HISTORY OF MALIGNANT NEOPLASM O 07/06/2017 ZEKE ARCHER MD, Ot Z87.59 PERSONAL HISTORY OF COMP [...] I10 ESSENTIAL (PRIMARY) HYPERTENSION 07/09/2017 KARLIE ZHU MD, Ot J45.909 UNSPECIFIED ASTHMA, UNCOMPLICATED 07/09/2017 KARLIE ZHU MD Ot K21.9 GASTRO-ESOPHAGEAL REFLUX DISEASE WITHOUT 07/09/2017 KARLIE ZHU MD, Ot R68.84 JAW PAIN 07/09/2017 KARLIE ZHU MD, Ot Z77.22 CNTCT W AND EXPSR TO ENVIRON TOBACCO SMO 07/09/2017 KARLIE ZHU MD, Ot Z87.59 PERSONAL HISTORY OF COMP OF PREG, CHLDBR 07/09/2017 KARLIE ZHU MD, Ot Z90.13 ACQUIRED ABSENCE OF BILATERAL BREASTS AN 07/09/2017 KARLIE ZHU MD, Ot Z90.49 ACQUIRED ABSENCE OF OTHER SPECIFIED [...] Ot I10 ESSENTIAL (PRIMARY) HYPERTENSION 07/14/2017 KAYLA MELNEDEZ APRN Ot J45.909 UNSPECIFIED ASTHMA, UNCOMPLICATED 07/14/2017 [...] APRN Ot I10 ESSENTIAL (PRIMARY) HYPERTENSION 07/26/2017 MELENDEZ, PETER J SANDBLASTING SUPERVISOR Ot K21.9 GASTRO-ESOPHAGEAL REFLUX DISEASE WITHOUT 07/26/2017 KAYLA MELENDEZ SANDBLASTING SUPERVISOR Ot R51 HEADACHE 07/26/2017 KAYLA MELENDEZ APRN Ot Z87.59 PERSONAL HISTORY OF COMP OF PREG, CHLDBR 07/26/2017 KAYLA MELENDEZ SANDBLASTING SUPERVISOR Ot Z90.13 ACQUIRED ABSENCE OF BILATERAL BREASTS AN 07/26/2017 KAYLA MELENDEZ SANDBLASTING SUPERVISOR Ot Z90.49 ACQUIRED ABSENCE OF OTHER SPECIFIED PART 08/02/2017 MADELINE JONES SERGEANT MISSILE CREWMAN Ot C50.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 08/02/2017 KAREN, MADELINE SERGEANT MISSILE CREWMAN Ot C79.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 08/02/2017 KAREN MADELINE SERGEANT MISSILE CREWMAN Ot E78.00 PURE HYPERCHOLESTEROLEMIA, UNSPECIFIED 08/02/2017 KAREN, MADELINE SERGEANT MISSILE CREWMAN Ot F17.210 NICOTINE DEPENDENCE, CIGARETTES, UNCOMPL 08/02/2017 KAREN, MADELINE SERGEANT MISSILE CREWMAN Ot F31.9 BIPOLAR DISORDER, UNSPECIFIED 08/02/2017 KAREN, MADELINE SERGEANT MISSILE CREWMAN Ot F41.9 ANXIETY DISORDER, UNSPECIFIED 08/02/2017 KAREN, MADELINE SERGEANT MISSILE CREWMAN Ot 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) 08/02/2017 KAREN, MADELINE SERGEANT MISSILE CREWMAN Ot I10 ESSENTIAL (PRIMARY) HYPERTENSION 08/02/2017 KAREN MADELINE SERGEANT MISSILE CREWMAN Ot J45.909 UNSPECIFIED ASTHMA, UNCOMPLICATED 08/02/2017 KAREN, MADELINE SERGEANT MISSILE CREWMAN Ot K21.9 GASTRO-ESOPHAGEAL REFLUX DISEASE WITHOUT 08/02/2017 KAREN MADELINE SERGEANT MISSILE CREWMAN Ot K62.5 HEMORRHAGE OF ANUS AND RECTUM 08/02/2017 KAREN MADELINE SERGEANT MISSILE CREWMAN Ot M06.9 RHEUMATOID ARTHRITIS, UNSPECIFIED 08/02/2017 KAREN, MADELINE SERGEANT MISSILE CREWMAN Ot R19.5 OTHER FECAL ABNORMALITIES 08/02/2017 KAREN MADELINE SERGEANT MISSILE CREWMAN Ot Z87.59 PERSONAL HISTORY OF COMP OF PREG, CHLDBR 08/02/2017 KAREN MADELINE SERGEANT MISSILE CREWMAN Ot Z90.13 ACQUIRED ABSENCE OF BILATERAL BREASTS AN 08/02/2017 KAREN MADELINE SERGEANT MISSILE CREWMAN Ot Z90.89 ACQUIRED ABSENCE OF OTHER ORGANS 08/02/2017 KAREN MADELINE SERGEANT MISSILE CREWMAN Ot Z92.21 PERSONAL HISTORY OF ANTINEOPLASTIC CHEMO 08/04/2017 MADELINE JONES SERGEANT MISSILE CREWMAN Ot C50.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 08/04/2017 MADELINE JONES Ot C79.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 08/04/2017 KARENMADELINE Harding Ot E78.00 PURE HYPERCHOLESTEROLEMIA, UNSPECIFIED 08/04/2017 KARENMADELINE Harding Ot F17.210 NICOTINE DEPENDENCE, CIGARETTES, UNCOMPL 08/04/2017 KARENMADELINE Harding Ot F31.9 BIPOLAR DISORDER, UNSPECIFIED 08/04/2017 KARENMADELINE Harding Ot F41.9 ANXIETY DISORDER, UNSPECIFIED 08/04/2017 KARENMADELINE HardingP Ot 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) 08/04/2017 KARENMADELINE HardingP Ot I10 ESSENTIAL (PRIMARY) HYPERTENSION 08/04/2017 KARENMADELINE Harding Ot J45.909 UNSPECIFIED ASTHMA, UNCOMPLICATED 08/04/2017 KARENMADELINE HardingP Ot K21.9 GASTRO-ESOPHAGEAL REFLUX DISEASE WITHOUT 08/04/2017 KARENMADELINE HardingP Ot K62.5 HEMORRHAGE OF ANUS AND RECTUM 08/04/2017 MADELINE JONES Ot M06.9 RHEUMATOID ARTHRITIS, UNSPECIFIED 08/04/2017 KARENMADELINE HardingP Ot R19.5 OTHER FECAL ABNORMALITIES 08/04/2017 KARENMADELINE HardingP Ot Z87.59 PERSONAL HISTORY OF COMP OF PREG, CHLDBR 08/04/2017 MADELINE JONESP Ot Z90.13 ACQUIRED ABSENCE OF BILATERAL BREASTS AN 08/04/2017 MADELINE JONESP Ot Z90.89 ACQUIRED ABSENCE OF OTHER ORGANS 08/04/2017 MADELINE JONESP Ot Z92.21 PERSONAL HISTORY OF ANTINEOPLASTIC CHEMO 08/20/2017 EMILY MURPHY DO Ot C50.919 MALIGNANT NEOPLASM OF [facility] SITE OF UNSPE 08/20/2017 EMILY MURPHY DO Ot C79.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 08/20/2017 EMILY MURPHY DO Ot E78.00 PURE HYPERCHOLESTEROLEMIA, UNSPECIFIED 08/20/2017 EMILY MURPHY DO Ot F17.210 NICOTINE DEPENDENCE, CIGARETTES, UNCOMPL 08/20/2017 EMILY MURPHY DO Ot F31.9 BIPOLAR DISORDER, UNSPECIFIED 08/20/2017 EMILY MURPHY DO Ot F60.9 PERSONALITY DISORDER, UNSPECIFIED 08/20/2017 EMILY MURPHY DO Ot I10 ESSENTIAL (PRIMARY) HYPERTENSION 08/20/2017 [place] EMILY BALL Ot J31.0 CHRONIC RHINITIS 08/20/2017 [place] EMILY BALL Ot J45.909 UNSPECIFIED ASTHMA, UNCOMPLICATED 08/20/2017 [place] EMILY BALL Ot K21.9 GASTRO-ESOPHAGEAL REFLUX DISEASE WITHOUT 08/20/2017 JEFFREY EMILY BALL Ot M06.9 RHEUMATOID ARTHRITIS, UNSPECIFIED 08/20/2017 [place] EMILY BALL Ot R04.0 EPISTAXIS 08/20/2017 [place] EMILY BALL Ot Z85.828 PERSONAL HISTORY OF OTHER MALIGNANT NEOP 08/20/2017 [place] EMILY BALL Ot Z87.59 PERSONAL HISTORY OF COMP OF PREG, CHLDBR 08/20/2017 JEFFREY EMILY BALL Ot Z90.49 ACQUIRED ABSENCE OF OTHER SPECIFIED PART 09/26/2017 [place] EMILY BALL Ot C44.90 UNSPECIFIED MALIGNANT NEOPLASM OF SKIN, 09/26/2017 JEFFREY EMILY BALL Ot C50.919 MALIGNANT NEOPLASM OF UNSP SITE OF UNSPE 09/26/2017 [facility] Ot C79.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 09/26/2017 [place] EMILY BALL Ot D64.81 ANEMIA DUE TO ANTINEOPLASTIC CHEMOTHERAP 09/26/2017 JEFFREY EMILY BALL Ot E78.00 PURE HYPERCHOLESTEROLEMIA, UNSPECIFIED 09/26/2017 [place] EMILY BALL Ot F17.210 NICOTINE DEPENDENCE, CIGARETTES, UNCOMPL 09/26/2017 JEFFREY EMILY BALL Ot F31.9 BIPOLAR DISORDER, UNSPECIFIED 09/26/2017 [facility] Ot F41.9 ANXIETY DISORDER, UNSPECIFIED 09/26/2017 [facility] Ot F60.9 PERSONALITY DISORDER, UNSPECIFIED 09/26/2017 [place] EMILY BALL Ot G89.29 OTHER CHRONIC PAIN 09/26/2017 JEFFREY EMILY BALL Ot I10 ESSENTIAL (PRIMARY) HYPERTENSION 09/26/2017 [place] RAH BALLA Konstantin Ot J00 ACUTE NASOPHARYNGITIS [COMMON COLD] 09/26/2017 JEFFREY EMILY BALL Ot J18.1 LOBAR PNEUMONIA, UNSPECIFIED ORGANISM 09/26/2017 JEFFREY DO, EMILY K Ot K21.9 GASTRO-ESOPHAGEAL REFLUX DISEASE WITHOUT 09/26/2017 JEFFREY EMILY K Ot M06.9 RHEUMATOID ARTHRITIS, UNSPECIFIED 09/26/2017 JEFFREY EMILY K Ot M79.1 MYALGIA 09/26/2017 JEFFREY EMILY K Ot Z90.49 ACQUIRED ABSENCE OF OTHER SPECIFIED PART 09/26/2017 JEFFREY EMILY K Ot Z91.14 PATIENT'S OTHER NONCOMPLIANCE WITH MEDIC 09/26/2017 JEFFREY EMILY K Ot Z98.890 OTHER SPECIFIED POSTPROCEDURAL STATES 09/27/2017 JEFFREY EMILY K Ot C44.90 UNSPECIFIED MALIGNANT NEOPLASM OF SKIN, 09/27/2017 JEFFREY EMILY K Ot C79.31 SECONDARY MALIGNANT NEOPLASM [...] Ot F60.9 PERSONALITY DISORDER, UNSPECIFIED 09/27/2017 JEFFREY DO EMILY K Ot I10 ESSENTIAL (PRIMARY) HYPERTENSION 09/27/2017 JEFFREY DO EMILY K Ot J00 ACUTE NASOPHARYNGITIS [COMMON COLD] 09/27/2017 JEFFREY EMILY K Ot J18.1 LOBAR PNEUMONIA, UNSPECIFIED ORGANISM 09/27/2017 JEFFREY EMILY K Ot K21.9 GASTRO-ESOPHAGEAL REFLUX DISEASE WITHOUT 09/27/2017 JEFFREY DO EMILY K Ot M06.9 RHEUMATOID ARTHRITIS, UNSPECIFIED 09/27/2017 JEFFREY DO EMILY K Ot Z90.49 ACQUIRED ABSENCE OF OTHER SPECIFIED PART 09/27/2017 JEFFREY DO EMILY K Ot Z91.14 PATIENT'S OTHER NONCOMPLIANCE WITH MEDIC 09/27/2017 EMILY MURPHY DO Ot Z98.890 OTHER SPECIFIED POSTPROCEDURAL STATES 10/03/2017 [...] F41.9 ANXIETY DISORDER, UNSPECIFIED 10/05/2017 KAYLA MELENDEZ APRN Ot I10 ESSENTIAL (PRIMARY) HYPERTENSION 10/05/2017 KAYLA [...] 01/12/2018 ANAIS MEREDITH MD Ot Z79.899 OTHER [facility] (CURRENT) DRUG THERAPY 01/12/2018 JANETH ADE Ot Z51.81 ENCOUNTER FOR THERAPEUTIC DRUG LEVEL MON 01/12/2018 JANETH ADE Ot Z79.899 OTHER [facility] (CURRENT) DRUG THERAPY 03/18/2018 JANETH ADE Ot Z51.81 ENCOUNTER FOR THERAPEUTIC DRUG LEVEL MON 03/18/2018 JANETHLOURA Ot Z79.899 OTHER [facility] (CURRENT) DRUG THERAPY 03/18/2018 JANETH ADE Ot Z51.81 ENCOUNTER FOR THERAPEUTIC DRUG LEVEL MON 03/18/2018 JANETH ADE Ot Z79.899 OTHER 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 (CURRENT) DRUG THERAPY 03/27/2018 KAYAL MELENDEZ APRN Ot D64.9 ANEMIA, UNSPECIFIED 03/27/2018 KAYLA MELENDEZ APRN Ot E78.00 PURE HYPERCHOLESTEROLEMIA, UNSPECIFIED 03/27/2018 KAYLA MELENDEZ APRN Ot F31.9 BIPOLAR DISORDER, UNSPECIFIED 03/27/2018 KAYLA MELENDEZ APRN Ot F41.9 ANXIETY DISORDER, UNSPECIFIED 03/27/2018 KAYLA MELENDEZ APRN Ot I10 ESSENTIAL (PRIMARY) HYPERTENSION 03/27/2018 KAYLA MELENDEZ APRN Ot J45.909 UNSPECIFIED ASTHMA, UNCOMPLICATED 03/27/2018 KAYLA MELENDEZ APRN Ot K21.9 GASTRO-ESOPHAGEAL REFLUX DISEASE WITHOUT 03/27/2018 KAYLA MELENDEZ APRN Ot M06.9 RHEUMATOID ARTHRITIS, UNSPECIFIED 03/27/2018 KAYLA MELENDEZ APRN Ot R20.0 ANESTHESIA OF SKIN 03/27/2018 KAYLA MELENDEZ APRN Ot R93.0 ABNORMAL FINDINGS ON DX IMAGING OF SKULL 03/27/2018 KAYLA MELENDEZ APRN Ot Z85.3 PERSONAL HISTORY OF MALIGNANT NEOPLASM O 03/27/2018 KAYLA MELENDEZ APRN Ot Z85.828 PERSONAL HISTORY OF OTHER MALIGNANT NEOP 03/27/2018 KAYLA MELENDEZ APRN Ot Z85.841 PERSONAL HISTORY OF MALIGNANT NEOPLASM O 03/27/2018 KAYLA MELENDEZ APRN Ot Z88.1 ALLERGY STATUS TO OTHER ANTIBIOTIC AGENT 03/27/2018 KAYLA MELENDEZ APRN Ot Z90.13 ACQUIRED ABSENCE OF BILATERAL BREASTS AN 03/27/2018 KAYLA MELENDEZ APRN Ot Z90.49 ACQUIRED ABSENCE OF OTHER SPECIFIED PART 03/27/2018 KAYLA MELENDEZ APRN Ot Z92.21 PERSONAL HISTORY OF ANTINEOPLASTIC CHEMO 03/27/2018 KAYLA MELENDEZ SANDBLASTING SUPERVISOR Ot Z98.890 OTHER SPECIFIED POSTPROCEDURAL STATES Procedures There is no data. Results Test [...] FOR INFLUENZA A AND B ANTIGENS BY [facility] Bacterial blood culture - 05/24/16 19:47 Bacterial blood culture [facility] Complete blood count (CBC) with automated white [...] culture - 05/24/16 20:59 Bacterial urine culture [id number] NRG COLONY COUNT >100,000/ML NRG FTX;REPORTABLE PLUS, [...] identification NORMAL NRG Comprehensive metabolic panel - 05/26/16 13:34 Serum [...] NRG Blood erythrocyte morphology finding identification NORMAL [facility] Complete blood count [...] NRG Blood erythrocyte morphology finding identification NORMAL [facility] Complete blood count [...] platelet poor plasma (mass/volume) 0.24 ug/mL 0.00-0.49 Complete blood count (CBC) with automated white blood cell (WBC) differential - 03/22/18 17:45 Blood leukocytes automated count (number/volume) 8.6 10*3/uL 4.3-11.0 Blood erythrocytes automated count (number/volume) 5.02 10*6/uL 4.35-5.85 Venous blood hemoglobin measurement (mass/volume) 15.2 g/dL 11.5-16.0 Blood hematocrit (volume fraction) 44 % 35-52 Automated erythrocyte mean corpuscular volume 88 [foz_us] 80-99 Automated erythrocyte mean corpuscular hemoglobin (mass per erythrocyte) 30 pg 25-34 Automated erythrocyte mean corpuscular hemoglobin concentration measurement ( mass/volume) 34 g/dL 32-36 Automated erythrocyte distribution width ratio 14.0 % 10.0-14.5 Automated blood platelet count (count/volume) 263 10*3/uL 130-400 Automated blood platelet mean volume measurement 9.3 [foz_us] 7.4-10.4 Automated blood neutrophils/100 leukocytes 79 % 42-75 Automated blood lymphocytes/100 leukocytes 15 % 12-44 Blood monocytes/100 leukocytes 5 % 0-12 Automated blood eosinophils/100 leukocytes 1 % 0-10 Automated blood basophils/100 leukocytes 0 % 0-10 Blood neutrophils automated count (number/volume) 6.8 10*3 1.8-7.8 Blood lymphocytes automated count (number/volume) 1.3 10*3 1.0-4.0 Blood monocytes automated count (number/volume) 0.4 10*3 0.0-1.0 Automated eosinophil count 0.1 10*3/uL 0.0-0.3 Automated blood basophil count (count/volume) 0.0 10*3/uL 0.0-0.1 Whole blood basic metabolic panel - 03/22/18 17:45 Serum or plasma sodium measurement (moles/volume) 138 mmol/L 135-145 Serum or plasma potassium measurement (moles/volume) 4.1 mmol/L 3.6-5.0 Serum or plasma chloride measurement (moles/volume) 106 mmol/L 98-107 Carbon dioxide 19 mmol/L 21-32 Serum or plasma anion gap determination (moles/volume) 13 mmol/L 5-14 Serum or plasma urea nitrogen measurement (mass/volume) 16 mg/dL 7-18 Serum or plasma creatinine measurement (mass/volume) 0.73 mg/dL 0.60-1.30 Serum or plasma urea nitrogen/creatinine mass ratio 22 NRG Serum or plasma creatinine measurement with calculation of estimated glomerular filtration rate > NRG Serum or plasma glucose measurement (mass/volume) 95 mg/dL 70-105 Serum or plasma calcium measurement (mass/volume) 9.5 mg/dL 8.5-10.1 Encounters ACCT No. Visit Date/Time Discharge Status Pt. Type Provider Facility Loc./Unit Complaint [id number] 03/24/2018 10:21:00 03/24/2018 23:59:59 CLS [facility] TERRI MURRAY, ABAD Vane [facility] RAD RIGHT ARM NUMBNESS [id number] 03/22/2018 17:23:00 03/22/2018 19:19:00 DIS Outpatient KAYLA MELENDEZ APRN [facility] ER RT SIDED [place] [id number] 03/18/2018 12:43:00 03/18/2018 14:23:00 DIS Emergency AUBREE MURRAY, NOELLE Lzaar [facility] ER SOB [id number] 10/03/2017 13:46:00 10/03/2017 17:30:00 DIS Emergency KAYLA MELENDEZ APRN [facility] ER RESPI. DISTRESS [id number] 09/25/2017 18:35:00 09/26/2017 08:30:00 DIS Emergency JEFFREY EMILY BALL [facility] ER CHILLS/HOT [id number] 08/20/2017 09:31:00 08/20/2017 10:45:00 DIS Emergency JEFFREY EMILY BALL [facility] ER NOSE BLEED [id number] 08/02/2017 09:09:00 08/02/2017 12:06:00 DIS Emergency MADELINE JONES [facility] ER BLOOD IN HER STOOL [id number] 07/26/2017 17:31:00 07/26/2017 18:51:00 DIS Emergency KAYLA MELENDEZ APRN [facility] ER GENERAL PAIN [id number] 07/12/2017 20:13:00 07/12/2017 22:30:00 DIS Emergency KAYLA MELENDEZ APRN [facility] ER FALL, ABD PAIN [id number] 07/09/2017 17:00:00 07/09/2017 19:23:00 DIS Emergency KARLIE ZHU MD [facility] ER PT HAS BRAIN TUMOR, PAIN ALL OVER,JAW PAIN [id number] 07/04/2017 09:02:00 07/04/2017 11:29:00 DIS Emergency ZEKE ARCHER MD [facility] ER ABD PAIN AFTER PICC LINE PLACED [id number] 06/29/2017 11:27:00 06/29/2017 13:35:00 DIS Emergency KAYLA MEELNDEZ SANDBLASTING SUPERVISOR [facility] ER ELEVATED WBC [id number] 06/03/2017 11:53:00 06/03/2017 13:57:00 DIS Emergency KAYLA MELENDEZ SANDBLASTING SUPERVISOR [facility] ER JAW PAIN [id number] 05/21/2017 08:03:00 05/21/2017 11:13:00 DIS Emergency AUBREE MURRAY, NOELLE Lazar [facility] ER CHEST PAIN [id number] 05/20/2017 03:45:00 05/20/2017 06:00:00 DIS Emergency EMILY MURPHY DO [facility] ER WOLF [id number] 03/30/2017 00:29:00 03/30/2017 23:59:59 CLS Preadmit MASOUD MURRAY, ANAIS Harding [facility] ONC [id number] 01/12/2017 09:52:00 03/29/2017 00:01:00 DIS Outpatient EULOGIO BRAGA MD [facility] ONC [id number] 03/27/2017 10:40:00 03/27/2017 14:16:00 DIS Emergency KARLIE ZHU MD [facility] ER BRAIN TUMOR/HEAD PAIN/ L SIDE PAIN [id number] 01/07/2017 14:47:00 01/07/2017 18:14:00 DIS Emergency KAYLA MELENDEZ SANDBLASTING SUPERVISOR [facility] ER N/V [id number] 12/29/2016 09:50:00 12/29/2016 11:15:00 DIS Emergency EMILY MURPHY DO [facility] ER MIGRAINES,NOSEBLEEDS [id number] 07/20/2016 15:28:00 10/18/2016 00:01:00 DIS Outpatient EULOGIO BRAGA MD [facility] ONC [id number] 06/28/2016 08:24:00 06/28/2016 10:05:00 DIS Emergency YANG ELKINS MD [facility] ER BREAST AREA PAIN/ BLISTED/BLEEDING FROM RADIATION [id number] 06/24/2016 09:48:00 06/24/2016 23:59:59 CLS Outpatient OMI MURRAY, EULOGIO [facility] ONC [id number] 05/26/2016 12:42:00 05/26/2016 15:18:00 DIS Emergency KARLIE ZUH MD [facility] ER RECTAL BLEEDING/PAIN [id number] 05/24/2016 20:35:00 05/25/2016 13:15:00 DIS Inpatient TERRI MURRAY, ABAD Cifuentes [facility] 4TH FEVER,BRONCHITIS,HYPOXIA, BREAST CA-ON CHEMO AND RA [id number] 03/04/2016 10:37:00 03/04/2016 11:16:00 DIS Emergency KAYLA MELENDEZ APRN [facility] ER PAIN/SWELLING RIGHT BREAST AREA [id number] 03/01/2016 10:03:00 03/01/2016 23:59:59 CLS Outpatient ADE FOWLER [facility] LAB [id number] 02/16/2016 08:21:00 02/16/2016 12:11:00 DIS Emergency EDIL QURESHI [facility] ER ANXIETY, NEEDING PORT FLUSHED [id number] 05/13/2015 08:02:00 07/30/2015 00:01:00 DIS Outpatient CEE ALSTON MD [facility] ONC [id number] 05/01/2015 11:17:00 05/01/2015 23:59:59 CLS Outpatient CEE ALSTON MD [facility] CARD BREAST CANCER [id number] 04/22/2015 11:06:00 04/22/2015 23:59:59 CLS Preadmit SANDRA TANG [facility] ONC [id number] 04/07/2015 10:59:00 04/14/2015 00:01:00 DIS Outpatient CEE ALSTON MD [facility] ONC [id number] 04/07/2015 11:51:00 04/07/2015 23:59:59 CLS Outpatient SANDRA TANG [facility] ONC [id number] 04/07/2015 11:17:00 04/07/2015 23:59:59 CLS Outpatient CEE ALSTON MD [facility] CARD BREAST CANCER [id number] 03/19/2015 08:29:00 03/19/2015 13:05:00 DIS Outpatient CAM BRAGA MD [facility] RIGHT BREAST CANCER [id number] 03/17/2015 06:12:00 03/17/2015 23:59:59 CLS Outpatient CAM BRAGA MD [facility] PREOP RIGHT BREAST CANCER [id number] 02/17/2015 10:18:00 02/17/2015 23:59:59 CLS Outpatient CEE ALSTON MD [facility] 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 [id number] 01/24/2015 13:52:00 01/24/2015 23:59:59 CLS Outpatient CEE ALSTON MD [facility] CARD ENCOUNTER FOR MONITORING CARDIOTOXIC DRUGS [id number] 01/23/2015 14:18:00 01/23/2015 23:59:59 CLS Outpatient SANDRA TANG [facility] ONC [id number] 01/23/2015 09:31:00 01/23/2015 23:59:59 CLS Outpatient CEE ALSTON MD [facility] RAD BREAST CA [id number] 01/22/2015 14:57:00 01/22/2015 23:59:59 CLS Outpatient CEE ALSTON MD [facility] RAD ABN MAMMO [id number] 01/17/2015 09:42:00 01/17/2015 23:59:59 CLS Outpatient CEE ALSTON MD [facility] CARD ENCOUNTER FOR MONITOR CARDIO TOXIC DRUG THERAPY [id number] 01/17/2015 09:38:00 01/17/2015 17:00:00 DIS Outpatient CAM BRAGA MD [facility] BREAST CANCER [id number] 01/15/2015 13:52:00 01/15/2015 23:59:59 CLS Outpatient PEBBLES MURRAY, SHERRY You (DDU) [facility] RT DDU [id number] 01/15/2015 05:43:00 01/15/2015 23:59:59 CLS Outpatient MARIA LUZ MURRAY, CAM Jara [facility] PREOP [id number] 01/03/2015 07:05:00 01/03/2015 23:59:59 CLS Outpatient DARÍO BURROWS SANDBLASTING SUPERVISOR [facility] RAD ABNORMAL MAMMO, BREAST MASS [id number] 01/01/2015 14:58:00 01/01/2015 23:59:59 CLS Outpatient DARÍO BURROWS SANDBLASTING SUPERVISOR [facility] RAD BREAST PAIN RT BREAST [id number] 12/25/2014 16:08:00 12/25/2014 17:23:00 DIS Emergency KAYLA MELENDEZ SANDBLASTING SUPERVISOR [facility] ER R BREAST SWELLING/ TENDERNESS [id number] 12/19/2014 08:51:00 12/19/2014 11:43:00 DIS Emergency REGINALDO ANNA MD [facility] ER COUGH/FEVER [id number] 11/21/2014 11:43:00 11/21/2014 13:07:00 DIS Emergency KAYLA MELENDEZ SANDBLASTING SUPERVISOR [facility] ER SOA [id number] 11/08/2014 14:38:00 11/08/2014 16:53:00 DIS Emergency REGINALDO ANNA MD [facility] ER SOA [id number] 10/28/2014 14:21:00 10/28/2014 23:59:59 CLS Outpatient DARÍO BURROWS SANDBLASTING SUPERVISOR [facility] RAD LOCALIZE SWELLING MASS OR HEAD 3 ABNORMAL GROWTHS [id number] 10/11/2014 09:35:00 10/11/2014 10:09:00 DIS Emergency REGINALDO ANNA MD [facility] ER RASH [id number] 09/27/2014 09:09:00 09/27/2014 10:19:00 DIS Emergency KARLIE ZHU MD [facility] ER [id number] 04/13/2018 14:50:00 PEN Ana MURRAY MD, ABAD Cifuentes [facility] REHAB R ARM PAIN [id number] 03/31/2018 22:21:00 ACT Emergency GIANNI MURRAY, ZEKE Ricketts [facility] ER HEADACHES
--- NOTE | 2018-03-31 22:39 | ED Headache ---
General Chief Complaint: Head/Cervical Problems Stated Complaint: HEADACHES Nursing Triage Note: HEADACHE, RIGHT FLANK PAIN, N/V, SINUS INFECTION Nursing Sepsis Screen: Possible Sepsis Risk Source: patient, EMS Exam Limitations: no limitations History of Present Illness Date Seen by Provider: Mar 31, 2018 Time Seen by Provider: 22:25 Initial Comments Patient presents to ER by EMS with chief complaint of headache on the left frontal area for the past 12 days. For 2 weeks now she's felt low energy and sleeping a lot. She has also a past couple days developed some right flank pain without dysuria. No fevers chills but she does have a cough. She is a smoker down to about 3/4 pack per day. She denies productive cough. She is currently being treated for brain cancer with [employer]. She completed chemotherapy at and is doing cyber laxative therapy at its also. She has 1 more therapy to go. She's been off chemotherapy for months. She had some sinus infection symptoms with runny nose and facial pain so she went to her primary care doctor as well as has presented to the ER recently and was put on azithromycin for it. She does not feel that after 2 days of antibiotics her sinus infection has improved. Allergies and Home Medications Allergies Coded Allergies: ciprofloxacin (Verified Allergy, Unknown, 03/22/18) Home Medications Oxycodone HCl/Acetaminophen 1 Each Tablet, 1 TAB PO Q6H PRN for PAIN-MODERATE Prescribed by: KAYLA MELENDEZ on 03/22/181911 Patient Home Medication List Home Medication List Reviewed: Yes Review of Systems Review of Systems Constitutional: No chills, No fever; malaise, weakness Eyes: Denies Blindness, Denies Blurred Vision Ears, Nose, Mouth, Throat: denies ear pain, denies ear discharge Respiratory: cough; No phlegm, No short of breath Cardiovascular: No chest pain, No edema, No palpitations, No syncope Gastrointestinal: No abdominal pain, No constipation, No diarrhea, No nausea Genitourinary: No discharge, No dysuria Musculoskeletal: No back pain, No joint pain Past Itizvbo-Bnyttg-Azlcap Hx Patient Social History Alcohol Use: Denies Use Recreational Drug Use: No Smoking Status: Current Everyday Smoker Type Used: Cigarettes 2nd Hand Smoke Exposure: Yes Recent Foreign Travel: No Contact w/Someone Who Travel: No Recent Infectious Disease Expo: No Recent Hopitalizations: No (SEEN IN ED NUMEROUS TIMES) Immunizations Up To Date Tetanus Booster (TDap): Unknown Seasonal Allergies Seasonal Allergies: No Past Medical History Surgeries: Yes (INFUSAPORT; BILATERAL MASTECTOMY) Appendectomy, Breast, Section, Gallbladder, Vascular Surgery Respiratory: Yes Asthma, COPD Cardiac: Yes High Cholesterol, Hypertension Neurological: Yes (BRAIN METS FROM BREAST CANCER) : No 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: No (THROUGH MENOPAUSE) Female 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 EXAM PROCTOR History: Menopausal Sexually Transmitted Disease: No HIV/AIDS: No Genitourinary: No Gastrointestinal: Yes Gastroesophageal Reflux Musculoskeletal: Yes Rheumatoid Arthritis, Chronic Back Pain Endocrine: No HEENT: Yes (TEETH REMOVED) Loss of Vision: Denies Hearing Impairment: Denies Cancer: Yes Brain, Skin, Breast Did You Recieve Any Treatments: Yes What Type of Treatment Did You: Chemotherapy, Radiation, Surgical Intervention Psychosocial: Yes Anxiety, Bipolar, Personality Disorder, Depression Integumentary: No Blood Disorders: Yes (ANEMIA WITH CHEMO) Adverse Reaction/Blood Tranf: No (HAS HAD BLOOD TRANSFUSION WITH NO PROBLEM) Family Medical History Not obtainable due to adoption (ADOPTION) No Pertinent Family Hx Physical Exam Vital Signs Vital Signs - First Documented 03/31/18 22:22 Temp 96.6 Pulse 93 Resp 18 B/P (MAP) 145/67 (93) Pulse Ox 98 O2 Delivery Room Air Capillary Refill : Less Than 3 Seconds Height, Weight, BMI Height: 5'5.00" Weight: 155lbs. 0oz. 70.246730ex; 31.2 BMI Method:Stated General Appearance: WD/WN, no apparent distress HEENT: PERRL/EOMI, normal ENT inspection, TMs normal, pharynx normal, other ( right maxillary face tenderness to palpation; frontal tender to palpation) Neck: non-tender, full range of motion, supple, normal inspection Cardiovascular: normal peripheral pulses, regular rate, rhythm, no edema Respiratory: chest non-tender, lungs clear, normal breath sounds, no respiratory distress, no accessory muscle use Gastrointestinal: normal bowel sounds, non tender, soft Psychiatric: alert, oriented x 3 Crainal Nerves: normal hearing, normal speech, PERRL Coordination/Gait: normal finger to nose, normal gait Motor/Sensory: no motor deficit, no sensory deficit Skin: normal color, warm/dry Progress/Results/Core Measures Results/Orders Lab Results Laboratory Tests Test 03/31/18 22:40 03/31/18 22:45 Range/Units Urine Color YELLOW Urine Clarity SLIGHTLY CLOUDY Urine pH 7 5-9 Urine Specific [place] 1.010 L 1.016-1.022 Urine Protein NEGATIVE NEGATIVE Urine Glucose (UA) NEGATIVE NEGATIVE Urine Ketones NEGATIVE NEGATIVE Urine Nitrite NEGATIVE NEGATIVE Urine Bilirubin NEGATIVE NEGATIVE Urine Urobilinogen NORMAL NORMAL MG/DL Urine Leukocyte Esterase 1+ H NEGATIVE Urine RBC (Auto) 2+ H NEGATIVE Urine RBC 0-2 /HPF Urine WBC RARE /HPF Urine Squamous Epithelial Cells 10-25 H /HPF Urine Crystals NONE /LPF Urine Bacteria TRACE /HPF Urine Casts NONE /LPF Urine Mucus SMALL H /LPF Urine Culture Indicated CULTURE PENDING White Blood Count 7.4 4.3-11.0 10^3/uL Red Blood Count 4.89 4.35-5.85 10^6/uL Hemoglobin 14.7 11.5-16.0 G/DL Hematocrit 43 35-52 % Mean Corpuscular Volume 88 80-99 FL Mean Corpuscular Hemoglobin 30 25-34 PG Mean Corpuscular Hemoglobin Concent 34 32-36 G/DL Red Cell Distribution Width 14.0 10.0-14.5 % Platelet Count 263 130-400 10^3/uL Mean Platelet Volume 9.6 7.4-10.4 FL Neutrophils (%) (Auto) 78 H 42-75 % Lymphocytes (%) (Auto) 16 12-44 % Monocytes (%) (Auto) 5 0-12 % Eosinophils (%) (Auto) 1 0-10 % Basophils (%) (Auto) 0 0-10 % Neutrophils # (Auto) 5.8 1.8-7.8 X 10^3 Lymphocytes # (Auto) 1.2 1.0-4.0 X 10^3 Monocytes # (Auto) 0.3 0.0-1.0 X 10^3 Eosinophils # (Auto) 0.1 0.0-0.3 10^3/uL Basophils # (Auto) 0.0 0.0-0.1 10^3/uL Prothrombin Time 12.8 12.2-14.7 SEC INR Comment 1.0 0.8-1.4 Activated Partial Thromboplast Time 31 24-35 SEC Sodium Level 138 135-145 MMOL/L Potassium Level 4.0 3.6-5.0 MMOL/L Chloride Level 103 98-107 MMOL/L Carbon Dioxide Level 25 21-32 MMOL/L Anion Gap 10 5-14 MMOL/L Blood Urea Nitrogen 12 7-18 MG/DL Creatinine 0.72 0.60-1.30 MG/DL Estimat Glomerular Filtration Rate > 60 BUN/Creatinine Ratio 17 Glucose Level 125 H 70-105 MG/DL Lactic Acid Level 0.93 0.50-2.00 MMOL/L Calcium Level 9.8 8.5-10.1 MG/DL Corrected Calcium 9.6 8.5-10.1 MG/DL Total Bilirubin 0.4 0.1-1.0 MG/DL Aspartate Amino Transf (AST/SGOT) 75 H 5-34 U/L Alanine Aminotransferase (ALT/SGPT) 104 H 0-55 U/L Alkaline Phosphatase 87 40-136 U/L Total Protein 7.2 6.4-8.2 GM/DL Albumin 4.2 3.2-4.5 GM/DL Micro Results Microbiology 03/31/18 Influenza Types A,B Antigen (RUCHI) - Final, Complete My Orders Orders - ZEKE ARCHER Chest Pa/Lat (2 View) (03/31/18 22:30) Cbc With Automated Diff (03/31/18 22:30) Comprehensive Metabolic Panel (03/31/18 22:30) Blood Culture (03/31/18 22:30) Sputum Culture (03/31/18:30) Urinalysis (03/31/18 22:30) Urine Culture (03/31/18 22:30) Protime With Inr (03/31/18:30) Partial Thromboplastin Time (03/31/18 22:30) Saline Lock/Iv-Start (03/31/18 22:30) Saline Lock/Iv-Start (03/31/18 22:30) Vital Signs Adult Sepsis Patie Q15M (03/31/18 22:30) Ondansetron Injection (Zofran Injectio (03/31/18 22:30) O2 (03/31/18 22:30) Remove Rings In Anticipation O (03/31/18 22:30) Lactic Acid Analyzer (03/31/18 22:30) Influenza A And B Antigens (03/31/18 22:30) Ns Iv 1000 Ml (Sodium Chloride 0.9%) (03/31/18 22:30) Cefepime Injection (Maxipime Injection) (03/31/18 22:30) Saline Lock/Iv-Start (03/31/18 22:30) Ns Iv 500 Ml (Sodium Chloride 0.9%) (03/31/18 22:30) Ct Head/Sinuses Wo (03/31/18 22:30) Ketorolac Injection (Toradol Injection) (03/31/18 22:30) Oxycodone/Acet 10/325mg Tablet (Percocet (03/31/18 22:30) Medications Given in ED Current Medications Medications Dose Ordered Sig/Nilda Route Start Time Stop Time Status Last Admin Dose Admin Cefepime HCl 1000 mg/Sodium Chloride 50 ml @ 100 mls/hr ONCE ONCE IV 03/31/18 22:30 03/31/18 22:59 DC 03/31/18 23:09 100 MLS/HR Ketorolac Tromethamine 30 mg ONCE ONCE IVP 03/31/18 22:30 03/31/18 22:38 DC 03/31/18 22:56 30 MG Ondansetron HCl 4 mg PRN PRN IV 03/31/18 22:30 03/31/18 22:56 DC 03/31/18 22:56 4 MG Oxycodone/ Acetaminophen 1 tab ONCE ONCE PO 03/31/18 22:30 03/31/18 22:38 DC 03/31/18 23:08 1 TAB Sodium Chloride 500 ml @ 0 mls/hr Q0M ONCE IV 03/31/18 22:30 03/31/18 22:38 DC 03/31/18 22:55 0 MLS/HR Vital Signs/I&O 03/31/18 03/31/18 22:22 22:45 Temp 96.6 Pulse 93 Resp 18 B/P (MAP) 145/67 (93) Pulse Ox 98 97 O2 Delivery Room Air Room Air Blood Pressure Mean: 93 Progress Progress Note : Time: 01:09 Progress Note Patient's general malaise could be due to her sinus infection. She should continue her antibiotics and drink plenty fluids. Her workup is unremarkable for sepsis or signs of new, acute systemic disease. Diagnostic Imaging Diagonstic Imaging: Xray Plain Films/CT/US/NM/MRI: chest (2 view) Comments No acute cardiopulmonary processes noted. Reviewed: Reviewed by Me Diagonstic Imaging: CT Plain Films/CT/US/NM/MRI: head (maxillofacial) Comments Mucosal thickening with a fluid level in the right maxillary sinus can be seen in the setting of acute sinusitis. Ethmoid sinuses involved. No acute intracranial abnormality. Reviewed: Reviewed [place] Hawk Study, Reviewed by Me Departure Impression Primary Impression: Sinusitis Qualified Codes: J01.00 - Acute maxillary sinusitis, unspecified Additional Impressions: Malaise and fatigue Hx of brain cancer Disposition: HOME, SELF-CARE Condition: Stable Departure-Patient Inst. Decision time for Depature: 01:14 Referrals: ABAD MURRAY MD (PCP) Primary Care Physician [facility] (Family) Primary Care Physician Patient Instructions: Sinusitis, Adult (DC) Add. Discharge Instructions: We'll trial a second round of antibiotics so start taking the Augmentin one capsule twice a day for the next 10 days. Use humidifiers, vapor rubs such as Vicks or Mentholatum and drink lots of fluids. Follow-up with primary care. Questions are if you do not feel you're improving in 7-10 days. All discharge instructions reviewed with patient and/or family. Voiced understanding. Scripts Amoxicillin/Potassium Clav (Augmentin 875-125 Tablet) 1 Each Tablet 1 EACH PO BID for 10 Days, #20 TAB 0 Refills Prov: ZEKE ARCHER 04/01/18 ZEKE ARCHER Mar 31, 2018 22:39
[2018-03-31 22:58] LABS: BILIRUBIN,URINE NEGATIVE (NEGATIVE); CLARITY,URINE SLIGHTLY CLOUDY; COLOR,URINE YELLOW; GLUCOSE, URINE (UA) NEGATIVE (NEGATIVE); KETONES,URINE NEGATIVE (NEGATIVE); LEUKOCYTE ESTERASE ,URINE 1+ (NEGATIVE); NITRITE,URINE NEGATIVE (NEGATIVE); PH,URINE 7 (5-9); PROTEIN,URINE NEGATIVE (NEGATIVE); UROBILINOGEN,URINE NORMAL (NORMAL)
[2018-03-31 22:58] LABS: BASOPHILS % (AUTO) 0 % (0-10); EOSINOPHILS # (AUTO) 0.1 10^3/uL (0.0-0.3); EOSINOPHILS % (AUTO) 1 % (0-10); HEMATOCRIT 43 % (35-52); HEMOGLOBIN 14.7 G/DL (11.5-16.0); LYMPHOCYTES # (AUTO) 1.2 X 10^3 (1.0-4.0); LYMPHOCYTES % (AUTO) 16 % (12-44); MEAN CORPUSCULAR HEMOGLOBIN 30 PG (25-34); MEAN CORPUSCULAR HGB CONC 34 G/DL (32-36); MEAN CORPUSCULAR VOLUME 88 FL (80-99); MEAN PLATELET VOLUME 9.6 FL (7.4-10.4); MONOCYTES # (AUTO) 0.3 X 10^3 (0.0-1.0); MONOCYTES % (AUTO) 5 % (0-12); NEUTROPHILS # (AUTO) 5.8 X 10^3 (1.8-7.8); NEUTROPHILS % (AUTO) 78 % (42-75); PLATELET COUNT 263 10^3/uL (130-400); WHITE BLOOD COUNT 7.4 10^3/uL (4.3-11.0)
[2018-03-31 23:04] LABS: BACTERIA,URINE TRACE /HPF; RBC,URINE 0-2 /HPF; WBC,URINE RARE /HPF
[2018-03-31 23:09] LABS: PROTHROMBIN TIME PATIENT 12.8 SEC (12.2-14.7)
[2018-03-31 23:17] LABS: ALANINE AMINOTRANSFERASE 104 U/L (0-55); ALBUMIN 4.2 GM/DL (3.2-4.5); ALKALINE PHOSPHATASE 87 U/L (40-136); BILIRUBIN,TOTAL 0.4 MG/DL (0.1-1.0); BUN/CREATININE RATIO 17; CALCIUM 9.8 MG/DL (8.5-10.1); CARBON DIOXIDE 25 MMOL/L (21-32); CHLORIDE 103 MMOL/L (98-107); CREATININE SERUM 0.72 MG/DL (0.60-1.30); GFR ESTIMATED > 60; GLUCOSE 125 MG/DL (70-105); SODIUM 138 MMOL/L (135-145); TOTAL PROTEIN 7.2 GM/DL (6.4-8.2)
[2018-04-01] MEDS ORDERED: AMOX-358 PO (01:15)
[2018-04-01 01:25] VITALS: BP 125/62
--- NOTE | 2018-04-01 06:45 | Diagnostic Imaging Report ---
EXAMINATION: PA and lateral chest at 11:15 PM INDICATION: Right flank pain The heart size is within normal limits and stable when compared to 03/18/18. The lungs are clear. There is no evidence for failure, pneumonia or for a pleural effusion to indicate an acute abnormality. There is a nodular density overlying the left lung base on the PA view. This is felt to be secondary to superimposition of the osseous structures. The mediastinum is not widened. The osseous structures are intact. The left-sided Port-A-Cath seen previously is again evident. Surgical clips are also again seen overlying the right axilla and the right upper quadrant. IMPRESSION: There is no evidence for active disease. When compared to the prior study, there has been no significant change. Dictated by: Dictated on workstation # [id number]
--- NOTE | 2018-04-01 06:51 | Diagnostic Imaging Report ---
PROCEDURE: CT head without contrast and CT sinuses with contrast. TECHNIQUE: Routine noncontrast CT images were obtained through the head and sinuses. Coronal reformats of the sinuses were also performed and reviewed. INDICATION: Headache. CT of the head: FINDINGS: The recent CT head exam of 03/22/2018 noted a 1.1 x 1.4 CM area of diminished density along the periphery of the right frontal lobe. That finding is again evident and now measures 1.2 x 1.6 CM. The prior study also identified a region of mixed density along the posterior aspect of the left cerebellar hemisphere. This finding is essentially no different as well. There is no mass, shift of midline or hemorrhage to suggest an acute intracranial abnormality. The ventricles are not abnormally dilated and similar in size to the prior exam. The small area of diminished density in the left basal ganglia/thalamus seen previously is again visualized and no different. There are also diffuse areas of diminished density in the periventricular white matter as well as cortical atrophy. The bone windows show no sign of a fracture or of a destructive lesion. The orbits are symmetrical and within normal limits. There is severe right maxillary sinusitis and mild bilateral ethmoid sinusitis. The sinuses are otherwise clear. IMPRESSION: 1. There is no evidence for an acute intracranial abnormality. When compared to the prior study, there has been no significant change. 2. If clinical concern regarding an underlying abnormality persists, then MRI would be recommended for further study. 3. There is severe right maxillary sinusitis and mild bilateral ethmoid sinusitis. CT of the sinuses: As noted on the CT head exam performed in conjunction with this study, there is severe right maxillary sinusitis and mild bilateral ethmoid sinusitis. The sinuses are otherwise generally clear. The ostiomeatal complex on the right is occluded and there is mild narrowing of the ostiomeatal complex on the left due to mucosal thickening. The nasal septum is sharply deviated to the left and there is a small bony spur in the midportion of septum projecting to the left. The bone windows show no sign of an acute fracture or destructive lesion. There is a long-standing fracture of the tip of the nasal bone. The temporomandibular joints appear to be fairly well-maintained. IMPRESSION: 1. There is severe right maxillary sinusitis and mild bilateral ethmoid sinusitis. The sinuses are otherwise generally clear. 2. The nasal septum is sharply deviated to the left and there is a small bony spur within the septum. Dictated by: Dictated on workstation # [id number]
== END 2018-04-01 01:25 | disposition home or self-care (01) ==
LOC: EDUNIT# 22:20 → ER 22:21
DX: J32.9 Chronic sinusitis, unspecified (principal); R53.83 Other fatigue; R53.81 Other malaise; J44.9 Chronic obstructive pulmonary disease, unspecified; M06.9 Rheumatoid arthritis, unspecified; E78.00 Pure hypercholesterolemia, unspecified; I10 Essential (primary) hypertension; K21.9 Gastro-esophageal reflux disease without esophagitis; F41.9 Anxiety disorder, unspecified; F31.9 Bipolar disorder, unspecified; F60.9 Personality disorder, unspecified; F17.210 Nicotine dependence, cigarettes, uncomplicated; Z92.21 Personal history of antineoplastic chemotherapy; Z85.828 Personal history of other malignant neoplasm of skin; Z88.1 Allergy status to other antibiotic agents; Z85.841 Personal history of malignant neoplasm of brain; Z85.3 Personal history of malignant neoplasm of breast; Z90.49 Acquired absence of other specified parts of digestive tract; Z98.890 Other specified postprocedural states; Z90.13 Acquired absence of bilateral breasts and nipples
CPT/HCPCS: 36415; 70450; 70486; 71046; 80053; 81000; 83605; 85025; 85610; 85730; 87040; 87088; 87804; 96361; 96365; 96375

== ENCOUNTER → 2018-04-04 | Outpatient (CLI) | payer MEDICARE, MEDICAID ==
[~2018-04-04] MED LIST changes: +AMOX-358 PO; +GABA-488; +GADOBUTROL 7.5 MMOL/7.5 ML (GADAVIST) VIAL IV ONE
[2018-04-04 11:55] LABS: BUN/CREATININE RATIO 22; CREATININE SERUM 0.74 MG/DL (0.60-1.30); GFR ESTIMATED > 60
--- NOTE | 2018-04-04 14:07 | Diagnostic Imaging Report ---
CLINICAL INDICATION: Patient with breast cancer with metastases to brain. CyberKnife treatment to brain x1 month. Patient has right-sided numbness and limited range of motion of shoulder. EXAM: MRI of the brain performed without and with 7 cc of Gadavist IV contrast. Sequences include axial DWI, ADC map, axial gradient echo, axial T2, axial FLAIR, axial T1, axial T1 post IV contrast, coronal T1 fat-sat post IV contrast, and sagittal T1 post IV contrast. COMPARISON: CT scan of the head without contrast dated 03/31/2018. FINDINGS: There is multiple intraparenchymal and leptomeningeal areas of intracranial enhancement throughout both cerebral hemispheres and cerebellum. These areas are not well visualized on the comparison head CT. There is a 2.3 cm x 1.8 cm x 1.7 cm dimension area of parenchymal enhancement in the cortical area involving the posterior right frontal lobe. This correlates to the area of abnormal low density involving the head CT. There is confluent high T2 signal seen adjacent to this area. There are nodular areas of enhancement along the lateral aspect of the anterior portion of the left lateral ventricle which are difficult to measure in entirety given their close multinodular appearance. While the largest nodular areas measures roughly 6 mm in transverse dimensions and is seen anteriorly. There is a 3 mm focal area of enhancement involving the upper aspect of the right side of the optic chiasm/cisternal portions of the right optic nerve junction region. This is best seen on the coronal postcontrast sequence series 9, image 19. There are two nodular areas of enhancement involving the medial portion of the right temporal lobe. The smallest measures 4 mm and is seen more anteriorly in the one posterior and laterally adjacent to the smaller one measures 6 mm. There is a 3 mm focal area of enhancement involving the medial left temporal lobe anteriorly. There is a roughly 5 mm wide area of subependymal enhancement involving the occipital horn of left lateral ventricle. There is multinodular enhancement which appears intraparenchymal and leptomeningeal in the left cerebellar region. While the largest nodular areas measures 10 mm and is seen medially. There is leptomeningeal enhancement seen involving the superior cerebellum bilaterally. All these findings are consistent with metastatic disease. There is confluent diffuse high T2 white matter changes seen throughout both cerebral hemispheres which may be related to post treatment changes and due to intracranial masses. The brain parenchymal volume appears appropriate for patient's age. There is no brain radiation or midline shift. There is no hydrocephalus. Basal cisterns are unremarkable. The [place] vascular structures show no gross abnormality as visualized. The pituitary gland, sella, and suprasellar regions are unremarkable as visualized. The extra cranial soft tissue, skull, and orbits are unremarkable. There is moderate peripheral mucosal thickening involving right maxillary sinus. There is a small area of mucosal thickening involving the frontal sinus. There is [id number] amount of fluid in both mastoid air cells. IMPRESSION: 1: There are multiple areas of intraparenchymal, leptomeningeal, and subependymoma enhancement involving the bilateral cerebral hemispheres, left lateral ventricle, right optic chiasm/optic nerve, and bilateral cerebellar regions which is described detail above. These findings are concerning for metastatic disease. The posterior right frontal lobe region concerning for metastatic disease correlates to the area seen on the head CT. 2: Diffuse and confluent high T2 signal white matter changes seen throughout both cerebral hemispheres. These findings may related to post treatment changes and superimposed metastatic lesions. 3: There is paranasal sinus disease and fluid in both mastoid air cells. Results of this report, regarding brain metastatic disease, was relayed to nurse Codi working with Dr. Princess Londono, via the telephone on 04/04/2018 at 1345 hours. Dictated by: Dictated on workstation # [id number]
== END ==
LOC: RAD 11:24
PROVIDERS: ATTEND Family Medicine
DX: C79.31 Secondary malignant neoplasm of brain (principal); C50.919 Malignant neoplasm of unspecified site of unspecified female breast; J32.9 Chronic sinusitis, unspecified; R90.82 White matter disease, unspecified
CPT/HCPCS: 36415; 70553; 82565; 84520

== ENCOUNTER 2018-04-27 15:16 | Emergency (ER) | payer MEDICARE, MEDICAID ==
[~2018-04-27] VITALS: Ht 165.1 cm; Wt 74.8 kg
[~2018-04-27 15:16] MED LIST changes: -GADOBUTROL 7.5 MMOL/7.5 ML (GADAVIST) VIAL IV ONE; -HYDR-3454 PO; +HYDR-3455 PO
--- NOTE | 2018-04-27 15:30 | ED Headache ---
General Stated Complaint: FALL Source: patient, EMS Exam Limitations: no limitations History of Present Illness Date Seen by Provider: Apr 27, 2018 Time Seen by Provider: 15:28 Initial Comments To ER per EMS from home with reports of a fall that occurred yesterday, she struck the front of her face has a small abrasion on the tip of her nose. No loss consciousness, she has known breast cancer with metastasis to the brain. She is also out of her Dilaudid. Timing/Duration: 24 hours Severity/Quality: moderate Location: global Prior Headaches/Recent Trauma: no recent headache/trauma Associated Symptoms: denies symptoms Allergies and Home Medications Allergies Coded Allergies: ciprofloxacin (Verified Allergy, Unknown, 03/22/18) Home Medications Amoxicillin/Potassium Clav 1 Each Tablet, 1 EACH PO BID Prescribed by: ZEKE ARCHER on 04/01/18 0115 Hydromorphone HCl 2 Mg Tablet, 2 MG PO BID PRN for PAIN-MODERATE TO SEVERE Prescribed by: KAYLA MELENDEZ on 04/27/18 1646 Oxycodone HCl/Acetaminophen 1 Each Tablet, 1 TAB PO Q6H PRN for PAIN-MODERATE Prescribed by: KAYLA MELENDEZ on 03/22/18 1912 Patient Home Medication List Home Medication List Reviewed: Yes Review of Systems Review of Systems Constitutional: see HPI Eyes: No Symptoms Reported Ears, Nose, Mouth, Throat: no symptoms reported Respiratory: no symptoms reported Cardiovascular: no symptoms reported Genitourinary: no symptoms reported Musculoskeletal: no symptoms reported Skin: no symptoms reported Psychiatric/Neurological: No Symptoms Reported Past Vceuurr-Rtkjku-Xqyven Hx Patient Social History Type Used: Cigarettes 2nd Hand Smoke Exposure: Yes Recent Hopitalizations: No (SEEN IN ED NUMEROUS TIMES) Immunizations Up To Date Tetanus Booster (TDap): Unknown Seasonal Allergies Seasonal Allergies: No Past Medical History Surgeries: Yes (INFUSAPORT; BILATERAL MASTECTOMY) Appendectomy, Breast, Section, Gallbladder, Vascular Surgery Respiratory: Yes Asthma, COPD Cardiac: Yes High Cholesterol, Hypertension Neurological: Yes (BRAIN METS FROM BREAST CANCER) 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: No (THROUGH MENOPAUSE) Female 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 Sexually Transmitted Disease: No HIV/AIDS: No Genitourinary: No Gastrointestinal: Yes Gastroesophageal Reflux Musculoskeletal: Yes Rheumatoid Arthritis, Chronic Back Pain Endocrine: No HEENT: Yes (TEETH REMOVED) Loss of Vision: Denies Hearing Impairment: Denies Cancer: Yes Brain, Skin, Breast Did You Recieve Any Treatments: Yes What Type of Treatment Did You: Chemotherapy, Radiation, Surgical Intervention Psychosocial: Yes Anxiety, Bipolar, Personality Disorder, Depression Integumentary: No Blood Disorders: Yes (ANEMIA WITH CHEMO) Adverse Reaction/Blood Tranf: No (HAS HAD BLOOD TRANSFUSION WITH NO PROBLEM) Family Medical History Not obtainable due to adoption (ADOPTION) No Pertinent Family Hx Physical Exam Vital Signs Vital Signs - First Documented 04/27/18 16:37 Temp 96.8 Pulse 100 Resp 20 B/P (MAP) 119/56 (77) Pulse Ox 94 O2 Delivery Room Air Capillary Refill : Height, Weight, BMI Height: 5'5.00" Weight: 155lbs. 0oz. 70.004535tn; 31.2 BMI Method:Stated General Appearance: WD/WN, no apparent distress HEENT: PERRL/EOMI, normal ENT inspection, other (for abrasion to the tip of the nose but no deformity or ecchymosis or swelling) Neck: non-tender, full range of motion Respiratory: no respiratory distress, no accessory muscle use Gastrointestinal: normal bowel sounds, non tender, soft Extremities: normal range of motion, non-tender Psychiatric: alert Cra[place] Nerves: normal hearing, normal speech, PERRL Skin: normal color, warm/dry Progress/Results/Core Measures Results/Orders My Orders Orders - KAYLA MELENDEZ APRN Ct Head/Cervical Spine Wo (04/27/18 15:24) Morphine Injection (Morphine Injection (04/27/18 17:30) Vital Signs/I&O 04/27/18 16:37 Temp 96.8 Pulse 100 Resp 20 B/P (MAP) 119/56 (77) Pulse Ox 94 O2 Delivery Room Air Departure Impression Primary Impression: Minor head injury Qualified Codes: S09.90XA - Unspecified injury of head, initial encounter Additional Impression: Metastatic breast cancer Disposition: 01 HOME, SELF-CARE Condition: Stable Departure-Patient Inst. Decision time for Depature: 16:45 Referrals: [facility] (PCP) Primary Care Physician ABAD MURRAY MD (Family) Primary Care Physician Patient Instructions: Brain Cancer, Breast Cancer, CHRONIC PAIN Scripts Hydromorphone HCl (Dilaudid) 2 Mg Tablet 2 MG PO BID PRN for PAIN-MODERATE TO SEVERE, #14 TAB Prov: KAYLA MELENDEZ APRN 04/27/18 KAYLA MELENDEZ APRN Apr 27, 2018 15:29
[2018-04-27] MEDS ORDERED: HYDR2TAB30 PO (16:46)
[2018-04-27] MEDS ORDERED: morphine INJ 10 MG/ML 1ML (SYR OR VIAL) IM ONE (17:30)
--- NOTE | 2018-04-27 17:36 | Diagnostic Imaging Report ---
PROCEDURE: CT head and CT cervical spine without contrast. TECHNIQUE: Multiple contiguous axial images were obtained through the brain and cervical spine without the use of intravenous contrast. Sagittal and coronal reformations through the cervical spine were then performed. Auto Exposure Controls were utilized during the CT exam to meet ALARA standards for radiation dose reduction. INDICATION: Trauma, fall. COMPARISON: MRI of brain from 04/04/2018. FINDINGS: CT head: No hyperdense hemorrhage or hydrocephalus. Vasogenic edema with associated hypodensity in the right frontal cortex is similar. Diffuse confluent hypoattenuation of periventricular white matter is also unchanged. Numerous abnormal enhancing metastases seen on MRI are not readily apparent on CT. No acute skull fracture. Paranasal sinuses and mastoid air cells are clear. CT cervical spine: No acute fracture or traumatic malalignment. No high-grade spinal stenosis. No cervical lymphadenopathy. Left IJ Port-A-Cath is in place. Lung apices are clear. IMPRESSION: 1. No acute intracranial hemorrhage or skull fracture. 2. No acute fracture or traumatic malalignment in the cervical spine. 3. Multifocal intracranial metastases are not as well appreciated on CT as recent MRI. Please see that report for details. Dictated by: Dictated on workstation # [id number]
[2018-04-27 18:13] VITALS: BP 119/56
== END 2018-04-27 18:13 | disposition home or self-care (01) ==
LOC: EDUNIT# 15:16 → ER 15:18
DX: S09.90XA Unspecified injury of head, initial encounter (principal); C50.919 Malignant neoplasm of unspecified site of unspecified female breast; C79.31 Secondary malignant neoplasm of brain; C79.2 Secondary malignant neoplasm of skin; J44.9 Chronic obstructive pulmonary disease, unspecified; E78.00 Pure hypercholesterolemia, unspecified; K21.9 Gastro-esophageal reflux disease without esophagitis; M06.9 Rheumatoid arthritis, unspecified; F41.9 Anxiety disorder, unspecified; F31.9 Bipolar disorder, unspecified; F60.9 Personality disorder, unspecified; I10 Essential (primary) hypertension; Z77.22 Contact with and (suspected) exposure to environmental tobacco smoke (acute) (chronic); Z78.0 Asymptomatic menopausal state; Z92.21 Personal history of antineoplastic chemotherapy; Z90.49 Acquired absence of other specified parts of digestive tract; Z98.890 Other specified postprocedural states; Z90.13 Acquired absence of bilateral breasts and nipples; Z88.1 Allergy status to other antibiotic agents; W19.XXXA Unspecified fall, initial encounter; W22.09XA Striking against other stationary object, initial encounter; Y92.009 Unspecified place in unspecified non-institutional (private) residence as the place of occurrence of the external cause
CPT/HCPCS: 70450; 72125